=== PATIENT | female | born 1935 | race Caucasian/White ===

== ENCOUNTER → 2016-07-29 | Outpatient (CLI) | payer BC ==
[~2016-07-29] MED LIST: ALPR0.5T PO; ASPCH81 PO; CHOL100027 PO; CYCL10TA6 PO; FLVHFA110 INH; HYDC25 PO; KETO10TA PO; LEVAAER2 INH; MAGN400T6 PO; METO25TA3 PO; NF656 TD; PARO1TAB27 PO; PRLSR20 PO; SIMV20TA2 PO; SYN50 PO; VITAMIN B COMPLEX PO
--- NOTE | 2016-07-29 15:41 | MAMMOGRAPHY REPORT ---
BILATERAL DIGITAL SCREENING MAMMOGRAM WITH CAD: 07/29/2016 CLINICAL HISTORY: Routine screening. Patient has no complaints. TECHNIQUE: Current study was also evaluated with a Computer Aided Detection (CAD) system. Bilatera l CC and MLO views were obtained. COMPARISON: Comparison is made to exams dated: 07/02/2015 mammogram, 06/20/2014 mammogram, 08/21/2013 m ammogram, 08/16/2012 mammogram, 08/11/2011 mammogram, and 08/09/2010 mammogram - [facility]. BREAST COMPOSITION: The tissue of both breasts is heterogeneously dense, which may obscure small ma sses. FINDINGS: No suspicious masses, calcifications, or areas of architectural distortion are noted in e ither breast. There has been no significant interval change compared to prior exams. A linear scar marker denotes a scar in the right upper outer quadrant. Bilateral benign appearing calcifications are not significantly changed. IMPRESSION: ACR BI-RADS CATEGORY 2: BENIGN There is no mammographic evidence of malignancy. A 1 year screening mammogram is recommended. The p atient will receive written notification of the results. Approximately 10% of breast cancers are not detected with mammography. A negative mammographic repor t should not delay biopsy if a clinically suggestive mass is present. Radha Hancock M.D. ah/:07/29/2016 15:16:10 Plate Sensitizer: Asha APODACA(Gin)(M), [facility] letter sent: Normal 1/2 BI-RADS Code: ACR BI-RADS Category 2: Benign
== END | disposition home or self-care (01) ==
LOC: C.MAMM 14:46
PROVIDERS: ATTEND Internal Medicine
DX: Z12.31 Encounter for screening mammogram for malignant neoplasm of breast (principal)

== ENCOUNTER → 2016-08-01 | Outpatient (CLI) | payer BC ==
[2016-08-01 12:20] LABS: HEMATOCRIT 41.9 % (37-47); MEAN CELL VOLUME 91.9 fL (80-100); MEAN CORPUSCULAR HEMOGLOBIN 30.3 pg (25-34); MEAN CORPUSCULAR HGB CONC 32.9 g/dl (32-36); MEAN PLATELET VOLUME 11.5 fL (7.4-10.4); PLATELET COUNT 194 K/uL (130-400); RED BLOOD COUNT 4.56 M/uL (4.2-5.4); WHITE BLOOD COUNT 6.18 K/uL (4.8-10.8)
[2016-08-01 12:26] LABS: URINE APPEARANCE CLEAR (CLEAR); URINE BILIRUBIN NEG (NEG); URINE COLOR YELLOW; URINE EPITHELIAL CELL AUTO 0-5 /lpf (0-5); URINE NITRITE NEG (NEG); URINE PH 6.5 (4.5-7.5); URINE SPECIFIC GRAVITY 1.015 (1.000-1.030); UROBILINOGEN NEG (NEG)
[2016-08-01 12:29] LABS: MANUAL MICROSCOPIC REQUIRED? NO; REVIEW REQ? NO
[2016-08-01 13:26] LABS: URINE PROTIEN/CREAT RATIO 0.1 (0-0.2); URINE TOTAL PROTEIN 9.5 mg/dl (0-11.9)
[2016-08-01 14:01] LABS: BLOOD UREA NITROGEN 18 mg/dl (7-18); BUN/CREATININE RATIO 16.1 (10-20); CALCIUM 9.6 mg/dl (8.5-10.1); CARBON DIOXIDE 30 mmol/L (21-32); CHLORIDE 107 mmol/L (98-107); GLUCOSE 89 mg/dl (70-99); PHOSPHORUS 3.2 mg/dl (2.5-4.9); SODIUM 143 mmol/L (136-145)
== END | disposition home or self-care (01) ==
LOC: C.LAB1850 11:05
PROVIDERS: ATTEND Internal Medicine Nephrology
DX: I12.9 Hypertensive chronic kidney disease with stage 1 through stage 4 chronic kidney disease, or unspecified chronic kidney disease (principal); E55.9 Vitamin D deficiency, unspecified; R31.29 Other microscopic hematuria; N18.2 Chronic kidney disease, stage 2 (mild)

== ENCOUNTER → 2016-08-25 | Outpatient (CLI) | payer BC ==
--- NOTE | 2016-08-29 10:45 | CODING QUERY MEDICAL NECESSITY ---
SUPPORTING DIAGNOSIS NEEDED Dr. William, A supporting diagnosis is required for the test/procedure performed on this patient in order for us to be reimbursed by the patient's insurance. Please provide a supporting diagnosis for the following test/procedure listed below next to the test name along with your signature. *If there is no additional diagnosis for this patient that would support the following test/procedure please document that below next to the test/procedure. Test(s)/Procedure(s) that require a supporting diagnosis: * ([id number]) B12 VITAMIN LEVEL DIAGNOSIS: DATE OF SERVICE: 08/25/16 Provider Signature: Date: Thank you Tacho Bentley [facility] Information Management Once completed, please kindly fax back to [phone] For questions please call [phone]
== END | disposition home or self-care (01) ==
LOC: C.LAB1850 15:00
PROVIDERS: ATTEND Internal Medicine Nephrology
DX: N18.2 Chronic kidney disease, stage 2 (mild) (principal); D64.9 Anemia, unspecified

== ENCOUNTER → 2017-02-20 | Outpatient (CLI) | payer BC ==
[2017-02-20 12:58] LABS: HEMATOCRIT 42.4 % (37-47); MEAN CORPUSCULAR HEMOGLOBIN 30.6 pg (25-34); MEAN CORPUSCULAR HGB CONC 33.3 g/dl (32-36); MEAN PLATELET VOLUME 11.3 fL (7.4-10.4); PLATELET COUNT 200 K/uL (130-400); RED BLOOD COUNT 4.61 M/uL (4.2-5.4); WHITE BLOOD COUNT 5.49 K/uL (4.8-10.8)
[2017-02-20 13:28] LABS: BLOOD UREA NITROGEN 17 mg/dl (7-18); CALCIUM 9.3 mg/dl (8.5-10.1); CARBON DIOXIDE 29 mmol/L (21-32); CHLORIDE 104 mmol/L (98-107); CREATININE 1.13 mg/dl (0.60-1.20); GLUCOSE 92 mg/dl (70-99); PHOSPHORUS 2.9 mg/dl (2.5-4.9); POTASSIUM 3.9 mmol/L (3.5-5.1); SODIUM 139 mmol/L (136-145)
== END | disposition home or self-care (01) ==
LOC: C.LAB1850 11:28
PROVIDERS: ATTEND Internal Medicine Nephrology
DX: I12.9 Hypertensive chronic kidney disease with stage 1 through stage 4 chronic kidney disease, or unspecified chronic kidney disease (principal); N18.2 Chronic kidney disease, stage 2 (mild); E55.9 Vitamin D deficiency, unspecified; R25.1 Tremor, unspecified

== ENCOUNTER → 2017-05-19 | Outpatient (CLI) | payer BC ==
[2017-05-19 09:32] LABS: HEMATOCRIT 41.7 % (37-47); HEMOGLOBIN 13.9 g/dL (12.0-16.0); MEAN CELL VOLUME 90.7 fL (80-100); MEAN CORPUSCULAR HEMOGLOBIN 30.2 pg (25-34); MEAN CORPUSCULAR HGB CONC 33.3 g/dl (32-36); MEAN PLATELET VOLUME 10.4 fL (7.4-10.4); PLATELET COUNT 237 K/uL (130-400); RED CELL DISTRIBUTION WIDTH CV 14.6 % (11.5-14.5); RED CELL DISTRIBUTION WIDTH SD 48.4 fL (36.4-46.3); WHITE BLOOD COUNT 7.59 K/uL (4.8-10.8)
[2017-05-19 10:00] LABS: ALBUMIN 3.7 gm/dl (3.4-5.0); BLOOD UREA NITROGEN 16 mg/dl (7-18); CALCIUM 9.4 mg/dl (8.5-10.1); CARBON DIOXIDE 30 mmol/L (21-32); CREATININE 1.11 mg/dl (0.60-1.20); GLUCOSE 100 mg/dl (70-99); PHOSPHORUS 3.7 mg/dl (2.5-4.9); POTASSIUM 3.6 mmol/L (3.5-5.1); SODIUM 141 mmol/L (136-145)
== END | disposition home or self-care (01) ==
LOC: C.LAB1850 08:41
PROVIDERS: ATTEND Internal Medicine Nephrology
DX: I10 Essential (primary) hypertension (principal); E55.9 Vitamin D deficiency, unspecified; N18.2 Chronic kidney disease, stage 2 (mild)

== ENCOUNTER 2019-05-28 18:07 | Observation (INO) ==
[2019-05-28 20:47] LABS: Basophils # (auto) 0.01 K/uL (0-0.2); Basophils % (auto) 0.1 %; Eosinophils # (auto) 0.06 K/uL (0-0.5); Eosinophils % (auto) 0.4 %; Hemoglobin 13.7 g/dL (12.0-16.0); Immature Granulocytes # (auto) 0.02 K/uL (0.00-0.02); Immature Granulocytes % (auto) 0.1 %; Lymphocytes # (auto) 1.27 K/uL (1.2-3.4); Lymphocytes % (auto) 9.4 %; Mean Corpuscular Hemoglobin 30.7 pg (25-34); Mean Corpuscular Hgb Conc 33.4 g/dL (32-36); Mean Corpuscular Volume 91.9 fL (80-100); Mean Platelet Volume 10.9 fL (7.4-10.4); Monocytes # (auto) 0.38 K/uL (0.11-0.59); Monocytes % (auto) 2.8 %; Neutrophils # (auto) 11.74 K/uL (1.4-6.5); Neutrophils % (auto) 87.2 %; Platelet Count 218 K/uL (130-400); RDW Coefficient of Variation 13.5 % (11.5-14.5); RDW Standard Deviation 45.5 fL (36.4-46.3); Red Blood Count 4.46 M/uL (4.2-5.4); White Blood Count 13.48 K/uL (4.8-10.8)
[2019-05-28] MEDS ORDERED: SODIUM CHLORIDE 0.9% 500 ML IV SCH (21:00)
[2019-05-28 21:28] LABS: Albumin Level 3.8 gm/dl (3.4-5.0); Aspartate Aminotransferase 15 U/L (15-37); BUN Creatinine Ratio 17.1 (10-20); Blood Urea Nitrogen 21 mg/dl (7-18); Calcium 9.2 mg/dl (8.5-10.1); Carbon Dioxide 27 mmol/L (21-32); Chloride 106 mmol/L (98-107); Est GFR (African American) 47.8; Est GFR (Non-African American) 41.2; Glucose 122 mg/dl (70-99); Magnesium 2.2 mg/dl (1.8-2.4); Potassium 3.7 mmol/L (3.5-5.1); Sodium 139 mmol/L (136-145)
[2019-05-28 21:39] LABS: Alanine Aminotransferase 20 U/L (12-78); Alkaline Phosphatase 79 U/L (45-117); Bilirubin,Total 0.2 mg/dl (0.2-1); Globulin 3.9 gm/dl (2.5-4.0); Thyroid Stimulating Hormone 0.598 uIu/ml (0.300-4.500); Total Protein 7.7 gm/dl (6.4-8.2); Troponin I < 0.015 ng/ml (0-0.045)
[2019-05-28 22:05] LABS: Appearance Urine Clear (Clear); Bacteria Urine Automated Negative (Negative); Bilirubin Urine Negative (Negative); Blood Urine Trace (Negative); Color Urine Yellow; Glucose Urine UA Negative (Negative); Ketones Urine Negative (Negative); Leukocyte Esterase Urine 1+ (Negative); Nitrite Urine Negative (Negative); Protein Urine Negative (Negative); Specific Gravity Urine 1.013 (1.000-1.030); Urobilinogen Urine Negative (Negative)
[2019-05-28] MEDS ORDERED: AMLODIPINE BESYLATE 5 MG TAB PO STA (22:27)
--- NOTE | 2019-05-28 22:56 | CT Scan Report ---
CT head/brain wo con CT DOSE: HISTORY: Mental status change dizziness TECHNIQUE: Multiaxial CT images of the head were performed without the use of intravenous contrast. A dose lowering technique was utilized adhering to the principles of ALARA. Comparison: 10/22/2012 Findings: The paranasal sinuses and mastoid air cells are clear. The calvarium and skull base are int act. The ventricles and sulci are within normal limits. There is no mass, hematoma, midline shift, or acute infarct. Impression: No acute intracranial abnormality. ACT 112: Negative or not required by law. The above report was generated using voice recognition software. It may contain grammatical, syntax or spelling errors. Electronically signed by: Julio Baltazar M.D. 05/28/2019 10:55 PM
--- NOTE | 2019-05-28 22:58 | CT Scan Report ---
CT cervical spine wo con CT DOSE: 857.93 mGy.cm HISTORY: Pain neck pain TECHNIQUE: Multiaxial CT images of the cervical spine were performed and reformatted in the sagittal and coronal plane without the use of contrast. A dose lowering technique was utilized adhering to th e principles of ALARA. COMPARISON: None. FINDINGS: No fractures. No subluxation. Prevertebral soft tissues and the C1-C2 interval are intact. No pneumothorax. Significant degenerative disc changes throughout. Moderate degenerative change of the posterior elements throughout. No evidence for an acute compression deformity or acute bony abnormality. IMPRESSION: 1. Moderate to significant degenerative disc changes throughout the entire cervical region. 2. No evidence for significant bony compromise of the spinal canal or neural foramina. 3. Moderate degenerative changes posterior elements throughout the entire cervical region. 4. No acute bony abnormality. ACT 112: Negative or not required by law. The above report was generated using voice recognition software. It may contain grammatical, syntax or spelling errors. Electronically signed by: Julio Baltazar M.D. 05/28/2019 10:57 PM
--- NOTE | 2019-05-28 23:01 | History & Physical Report ---
Date of Service May 28, 2019 Assessment & Plan (1) Near syncope: Rule out orthostasis from diarrheal illness rule out C. difficile Dizziness secondary to illness Uncontrolled blood pressure possibly contributory Possible vertigo component given some worsening with head motion ? Functional disability, mild cognitive impairment as per records (Patient's family worried about intermittent confusion at home and ability to take meds as per records. Patient adamantly states that she knows her medications.) hx nonocclusive CAD as per records hyperlipidemia on statin Rx CRI (baseline creatinine 1.2), creatinine close to baseline hypothyroidism, euthyroid as of today's TSH history tremors on clonazepam Right-sided neck/right upper extremity pain from exertion with recent move to new residence Hyperglycemia rule out DM Medical telemetry Check orthostatic vitals IVF Stool C. difficile, Flagyl 1 dose for now given leukocytosis, oral vancomycin course if stool C. difficile positive Appropriate to hold home aspirin given rectal bleeding, she was H&H, transfuse PRBC if hemoglobin less than 8 and or for symptomatic anemia GI consult if with persistent L GIB if stool C. difficile negative Check UA Titrate home BP meds Symptomatic management for possible vertiginous component Check hemoglobin A1c PT OT eval DVT prophylaxis. SCDs re rectal bleed Full code Text document was generated using [employer] voice recognition software. It may contain grammatical or spelling errors. Kindly contact undersigned for clarification of any documentation item in question. History of Present Illness Primary Care Provider: Rashel Norris DO History obtained from patient and records. Medical history significant for nonocclusive CAD as per records, hypertension, hyperlipidemia, CRI (baseline creatinine 1.2), OA, asthma, GERD, hypothyroidism, skin cancer as per records, history tremors on clonazepam, mild cognitive impairment as per records. Recent confinement September 2012 for thoracic vertebral fracture secondary to mechanical fall. 1 week history of diarrhea, loose stools sometimes with rectal bleed, somewhat worse with eating. No chest pain, no S OB, no abdominal pain, no fever, no chills. No recent antibiotics or no known sick contacts or recent travel. Patient noted dizziness described as lightheadedness the last few days, feeling wobbly on her feet. No headache. Admits to right-sided neck pain going to the shoulder. Patient has been busy the last few days moving her belongings to a new apartment at the [facility]. Patient seen at PCP's office. Blood pressure noted to be 195/84. Patient does not check blood pressure at home. No NSAID intake. Denies dietary indiscretion. Patient directed to the ER for evaluation. MEDICAL HISTORY: As above. Normal colonoscopy 2007. SURGICAL HISTORY: Breast biopsy. Ptosis surgery, blepharoplasty FAMILY HISTORY: hypertension. Heart disease, skin cancer, diabetes, tremors PERSONAL SOCIAL HISTORY: Nonsmoker. 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 Allergies Allergy/AdvReac Type Severity Reaction Status Date / Time Iodinated Contrast Media Allergy Unknown IVP DYE Verified 05/28/19 23:18 ALLERGY NSAIDS (Non-Steroidal Allergy Unknown UNKNOWN Unverified 05/28/19 23:18 Anti-Inflamma primidone Allergy Unknown UNKNOWN Unverified 05/28/19 23:18 sertraline Allergy Unknown UNKNOWN Unverified 05/28/19 23:18 Sulfa (Sulfonamide Allergy Unknown "SULFA" Verified 05/28/19 23:18 Antibiotics) ALLERGY Home Medications Home Medications Medication Instructions Recorded Confirmed Type aspirin 81 mg tablet,delayed 81 mg PO DAILY tab 12/20/18 05/28/19 History release cholecalciferol (vitamin D3) 25 1,000 units PO DAILY 12/20/18 05/28/19 History mcg (1,000 unit) capsule clonazepam 0.5 mg tablet 0.5 mg PO TID PRN #270 tab 12/20/18 05/28/19 History fluticasone 100 mcg-salmeterol 50 1 puffs INHALATION BID #6 ea 12/20/18 05/28/19 History mcg/dose blistr powdr for inhalation levalbuterol tartrate 45 2 puffs INH Q4H PRN gm 12/20/18 05/28/19 History mcg/actuation aerosol inhaler levothyroxine 50 mcg tablet 50 mcg PO DAILY tab 12/20/18 05/28/19 History omeprazole 20 mg tablet,delayed 20 mg PO DAILY tab 12/20/18 05/28/19 History release simvastatin 20 mg tablet 10 mg PO DAILY tab 12/20/18 05/28/19 History amlodipine 2.5 mg tablet 2.5 mg PO DAILY #90 tab 02/11/19 05/28/19 Rx metoprolol succinate 100 mg 50 mg PO DAILY #50 tab 02/11/19 05/28/19 Rx tablet,extended release 24 hr isosorbide mononitrate 30 mg PO DAILY 05/28/19 05/28/19 History paroxetine HCl 30 mg PO DAILY 05/28/19 05/28/19 History Past Med/Surg History Medical History Chronic kidney disease, stage II (mild) GERD (gastroesophageal reflux disease) Heart block Hypertension Vitamin D deficiency Surgical History No pertinent past surgical history Family History Other Cancer Diabetes Heart disease Hypertension Kidney disease Lung disease Social History Feels Safe at Home: Yes Smoking Status: Never smoker Review of Systems Review of Systems: As per HPI, all 10 systems reviewed, all other ROS negative Physical Exam Physical Exam: GENERAL: Comfortable, obese, pleasant, looks younger for stated age, no respiratory distress SKIN: Normal color, warm HEENT: [place]di palpebral conjunctivae, no ptosis, dry buccal mucosa NECK : Supple, short neck, right cervical tenderness CHEST : CTA, no tenderness HEART : RRR, no obvious murmurs ABDOMEN: Some distention, nontender EXTREMITIES : No LE swelling/tenderness, minimal right shoulder tenderness, no other conspicuous deformities noted NEUROLOGIC : Coherent, no facial asymmetry, chronic rest tremors, no other gross focality Results & Data Vital Signs (Past 12 Hours) Vital Signs Temp Pulse Pulse Resp BP BP Pulse Ox 05/28/19 22:30 71 17 161/65 H 97 05/28/19 22:00 73 20 180/126 H 99 05/28/19 21:34 94 05/28/19 21:30 68 23 159/94 H 97 05/28/19 20:23 69 20 166/70 H 95 05/28/19 19:05 36.4 C L 60 22 175/90 H 96 Laboratory Results Laboratory Results WBC 13.48 K/uL (4.8-10.8) H 05/28/19 20:25 RBC 4.46 M/uL (4.2-5.4) 05/28/19 20:25 Hgb 13.7 g/dL (12.0-16.0) 05/28/19 20:25 Hct 41.0 % (37-47) 05/28/19 20:25 MCV 91.9 fL (80-100) 05/28/19 20:25 MCH 30.7 pg (25-34) 05/28/19 20: MCHC 33.4 g/dL (32-36) 05/28/19 20: RDW Std Deviation 45.5 fL (36.4-46.3) 05/28/19 RDW Coeff of Lakshmi 13.5 % (11.5-14.5) 05/28/19: Plt Count 218 K/uL (130-400) 05/28/19 20: MPV 10.9 fL (7.4-10.4) H 05/28/19 20: Immature Gran % (Auto) 0.1 % 05/28/19 20:25 Neut % (Auto) 87.2 % 05/28/19 20:25 Lymph % (Auto) 9.4 % 05/28/19 20:25 [place] % (Auto) 2.8 % 05/28/19 20:25 Eos % (Auto) 0.4 % 05/28/19 20:25 Baso % (Auto) 0.1 % 05/28/19 20:25 Immature Gran # (Auto) 0.02 K/uL (0.00-0.02) 05/28/19 20:25 Neut # (Auto) 11.74 K/uL (1.4-6.5) H 05/28/19 20:25 Lymph # (Auto) 1.27 K/uL (1.2-3.4) 05/28/19 20:25 [place] # (Auto) 0.38 K/uL (0.11-0.59) 05/28/19 20:25 Eos # (Auto) 0.06 K/uL (0-0.5) 05/28/19 20:25 Baso # (Auto) 0.01 K/uL (0-0.2) 05/28/19 20:25 Sodium 139 mmol/L (136-145) 05/28/19 20:25 Potassium 3.7 mmol/L (3.5-5.1) 05/28/19 20:25 Chloride 106 mmol/L (98-107) 05/28/19 20:25 Carbon Dioxide 27 mmol/L (21-32) 05/28/19 20:25 Anion Gap 6.0 (3-11) 05/28/19 20:25 BUN 21 mg/dl (7-18) H 05/28/19 20:25 Creatinine 1.22 mg/dl (0.6-1.2) H 05/28/19 20:25 Est Cr Clr Drug Dosing Not Reportable 05/28/19 20:25 Est GFR ( Amer) 47.8 05/28/19 20:25 Est GFR (Non-Af Amer) 41.2 05/28/19 20:25 BUN/Creatinine Ratio 17.1 (10-20) 05/28/19 20:25 Glucose 122 mg/dl (70-99) H 05/28/19 20:25 Calcium 9.2 mg/dl (8.5-10.1) 05/28/19 20:25 Magnesium 2.2 mg/dl (1.8-2.4) 05/28/19 20:25 Total Bilirubin 0.2 mg/dl (0.2-1) 05/28/19 20:25 AST 15 U/L (15-37) 05/28/19 20:25 ALT 20 U/L (12-78) 05/28/19 20:25 Alkaline Phosphatase 79 U/L (45-117) 05/28/19 20:25 Troponin I < 0.015 ng/ml (0-0.045) 05/28/19 20:25 Total Protein 7.7 gm/dl (6.4-8.2) 05/28/19 20:25 Albumin 3.8 gm/dl (3.4-5.0) 05/28/19 20:25 Globulin 3.9 gm/dl (2.5-4.0) 05/28/19 20:25 Albumin/Globulin Ratio 1.0 (0.9-2) 05/28/19 20:25 TSH 0.598 uIu/ml (0.300-4.500) 05/28/19 20:25 Urine Color Yellow 05/28/19 21:53 Urine Appearance Clear (Clear) 05/28/19 21:53 Urine pH 7.0 (4.5-7.5) 05/28/19 21:53 Ur Specific [place] 1.013 (1.000-1.030) 05/28/19 21:53 Urine Protein Negative (Negative) 05/28/19 21:53 Urine Glucose (UA) Negative (Negative) 05/28/19 21:53 Urine Ketones Negative (Negative) 05/28/19 21:53 Urine Blood Trace (Negative) H 05/28/19 21:53 Urine Nitrite Negative (Negative) 05/28/19 21:53 Urine Bilirubin Negative (Negative) 05/28/19 21:53 Urine Urobilinogen Negative (Negative) 05/28/19 21:53 Ur Leukocyte Esterase 1+ (Negative) H 05/28/19 21:53 Urine WBC (Auto) 5-10 /hpf (0-5) H 05/28/19 21:53 Urine RBC (Auto) 5-10 /hpf (0-4) H 05/28/19 21:53 U Hyaline Cast (Auto) 1-5 /lpf (0-5) 05/28/19 21:53 U Epithel Cells (Auto) 10-20 /lpf (0-5) H 05/28/19 21:53 Urine Bacteria (Auto) Negative (Negative) 05/28/19 21:[address] head: No acute intracranial abnormality. CT cervical spine: 1. Moderate to significant degenerative disc changes throughout the entire c ervical region. 2. No evidence for significant bony compromise of the spinal canal or neural foramina. 3. Moderate degenerative changes posterior elements throughout the entire cervical region. 4. No acute bony abnormality. Right shoulder x-ray read pending Chest x-ray as per my interpretation: Cardiomegaly EKG as per my interpretation : Rate 65, NSR, normal axis, incomplete right bundle drop right bundle branch block, ST depression inferior leads
--- NOTE | 2019-05-28 23:54 | Emergency Department Note ---
Entered by Hiram Delgado acting as a scribe for History of Present Illness General Chief complaint: Dizziness Stated complaint: DIZZY, NAUSEA Time Seen by Provider: 05/28/19 20:47 Source: patient History of Present Illness Onset (ago): hour(s) 4 Location: head Pain Consistency: + now resolved Quality: + other (dizziness) Associated symptoms: + denies other symptoms (fevers, black stool, abdominal pain), + nausea/vomiting and + other (diarrhea, blood in stool) The patient is an 84 y/o female who presents to the ED w/ CC of a resolved episode of dizziness that occurred about 4 hours ago. The patient states she was sent here by her PCP. She reports while she was leaving the office, there was no one around, and she became very dizzy. The patient notes she started to walk after putting her jacket and barely made it to the railing due to her dizziness. She describes her dizziness as a lightheadedness. She states she did not loss consciousness and was able to sit down in a chair. The patient reports she was driven here by her neighbor and was not sent by EMS. She denies palpitations, shortness of breath, and chest pain during her dizziness. The patient notes she was evaluated by her PCP for worsening diarrhea over the past few weeks. She states she developed bright red blood in her diarrhea starting today, and she noticed blood on the toilet paper as well. The patient reports she did not have abdominal pain or black stool. She notes she was not nauseous when the dizziness episode occurred, but she became nauseous afterwards and vomited. The patient states she did not have a fever. She reports in February they did not do anything for her after her stress test. The patient denies recent antibiotic use, traveling outside the country, and being around anyone sick. She notes she just moved into a new apartment in the [place], and she thinks she has been over working herself. The patient states she has also had mild stiffness in the right side of her neck. Home Medications Home Medications Medication Instructions Recorded Confirmed Type aspirin 81 mg tablet,delayed 81 mg PO DAILY tab 12/20/18 05/28/19 History release cholecalciferol (vitamin D3) 25 1,000 units PO DAILY 12/20/18 05/28/19 History mcg (1,000 unit) capsule clonazepam 0.5 mg tablet 0.5 mg PO TID PRN #270 tab 12/20/18 05/28/19 History fluticasone 100 mcg-salmeterol 50 1 puffs INHALATION BID #6 ea 12/20/18 05/28/19 History mcg/dose blistr powdr for inhalation levalbuterol tartrate 45 2 puffs INH Q4H PRN gm 12/20/18 05/28/19 History mcg/actuation aerosol inhaler levothyroxine 50 mcg tablet 50 mcg PO DAILY tab 12/20/18 05/28/19 History omeprazole 20 mg tablet,delayed 20 mg PO DAILY tab 12/20/18 05/28/19 History release simvastatin 20 mg tablet 10 mg PO DAILY tab 12/20/18 05/28/19 History amlodipine 2.5 mg tablet 2.5 mg PO DAILY #90 tab 02/11/19 05/28/19 Rx metoprolol succinate 100 mg 50 mg PO DAILY #50 tab 02/11/19 05/28/19 Rx tablet,extended release 24 hr isosorbide mononitrate 30 mg PO DAILY 05/28/19 05/28/19 History paroxetine HCl 30 mg PO DAILY 05/28/19 05/28/19 History Allergies Allergy/AdvReac Type Severity Reaction Status Date / Time Iodinated Contrast Media Allergy Unknown IVP DYE Verified 05/28/19 23:18 ALLERGY NSAIDS (Non-Steroidal Allergy Unknown UNKNOWN Unverified 05/28/19 23:18 Anti-Inflamma primidone Allergy Unknown UNKNOWN Unverified 05/28/19 23:18 sertraline Allergy Unknown UNKNOWN Unverified 05/28/19 23:18 Sulfa (Sulfonamide Allergy Unknown "SULFA" Verified 05/28/19 23:18 Antibiotics) ALLERGY Past Med/Surg History Medical History Chronic kidney disease, stage II (mild) GERD (gastroesophageal reflux disease) Heart block Hypertension Vitamin D deficiency Surgical History No pertinent past surgical history Family History Other Cancer Diabetes Heart disease Hypertension Kidney disease Lung disease Social History Feels Safe at Home: Yes Smoking Status: Never smoker Review of Systems See HPI for pertinent positives & negatives. and A total of 10 systems reviewed and were otherwise negative Physical Exam Vital Signs Vital Signs - 24 hr 05/28/19 19:05 05/28/19 20:23 05/28/19 20:58 Temperature 36.4 C L Temperature Source Oral Pulse Rate - Lying 71 Pulse Rate - Sitting 73 Pulse Rate - Standing 77 Pulse Rate 60 Pulse Rate [Right] 69 Pulse Rate from SpO2 Sensor Pulse Rhythm [Right] Regular Respiratory Rate 22 20 Respiratory Depth Normal Blood Pressure - Lying 165/78 H Blood Pressure - Sitting 164/83 H Blood Pressure- Standing 175/74 H Blood Pressure 175/90 H Blood Pressure [Right Arm] 166/70 H Blood Pressure Mean 118 Blood Pressure Mean [Right Arm] 102 Blood Pressure Position Sitting Blood Pressure Position [Right Arm] Sitting Pulse Oximetry 96 95 Oxygen Delivery Method Room Air Sepsis Recent Fever Within 48 Hours No Sepsis New/Unexplained Change in Mental Status No Sepsis Action Taken by Nursing No Action Required 05/28/19 21:30 05/28/19 21:34 05/28/19 22:00 Temperature Temperature Source Pulse Rate - Lying Pulse Rate - Sitting Pulse Rate - Standing Pulse Rate 68 73 Pulse Rate [Right] Pulse Rate from SpO2 Sensor 73 Pulse Rhythm [Right] Respiratory Rate 23 20 Respiratory Depth Blood Pressure - Lying Blood Pressure - Sitting Blood Pressure- Standing Blood Pressure 159/94 H 180/126 H Blood Pressure [Right Arm] Blood Pressure Mean 113 141 Blood Pressure Mean [Right Arm] Blood Pressure Position Blood Pressure Position [Right Arm] Pulse Oximetry 97 94 99 Oxygen Delivery Method Room Air Room Air Sepsis Recent Fever Within 48 Hours Sepsis New/Unexplained Change in Mental Status Sepsis Action Taken by Nursing 05/28/19 22:30 05/28/19 23:30 Temperature Temperature Source Pulse Rate - Lying Pulse Rate - Sitting Pulse Rate - Standing Pulse Rate 71 Pulse Rate [Right] Pulse Rate from SpO2 Sensor 70 67 Pulse Rhythm [Right] Respiratory Rate 17 Respiratory Depth Blood Pressure - Lying Blood Pressure - Sitting Blood Pressure- Standing Blood Pressure 161/65 H 167/105 H Blood Pressure [Right Arm] Blood Pressure Mean 101 131 Blood Pressure Mean [Right Arm] Blood Pressure Position Blood Pressure Position [Right Arm] Pulse Oximetry 97 97 Oxygen Delivery Method Room Air Sepsis Recent Fever Within 48 Hours Sepsis New/Unexplained Change in Mental Status Sepsis Action Taken by Nursing Constitutional: Vital signs reviewed. Eyes: Pupils are equal round reactive to light. Conjunctiva are noninjected. ENT: Pharynx is clear without erythema or exudate. Mucous membranes are moist. Neck supple without meningeal signs. Respiratory: Clear to auscultation bilaterally. Breath sounds are equal bilaterally. Cardiovascular: Regular rate and rhythm. No rubs or gallops. No carotid bruits. GI: Soft, nondistended and nontender. Bowel sounds are present. Musculoskeletal: No peripheral edema. No lower extremity tenderness. Integumentary: No cyanosis. Neurological: The patient is awake and alert. No focal deficits. Psychiatric: Normal affect. Course Course 2048: The patient was evaluated in room A09B. A complete history and physical exam was performed. 2144: Upon reevaluation, the patient is asymptomatic. I recommended a hospi talist evaluation. I discussed laboratory and radiographic results with her. She verbalized agreement of the treatment plan. The patient will be evaluated for further management and care. 2147: [facility] the [facility] the patient for further management. Administered Medications Discontinued Medications Amlodipine Besylate (Norvasc) 2.5 mg PO NOW STA Stop: 05/28/19 22:28 Last Admin: 05/28/19 22:38 Dose: 2.5 mg Documented by: [id number] Sodium Chloride (Nss) 500 mls @ 999 mls/hr IV .Q31M SMILEY Stop: 05/28/19 21:30 Last Infusion: 05/28/19 22:09 Dose: 0 mls/hr Documented by: [id number] Admin: 05/28/19 21:38 Dose: 999 mls/hr Documented by: [id number] Medical Decision Making Differential Diagnosis Differential diagnosis includes: dehydration, orthostatic hypotension, vasovagal, dysrhythmia, anemia, cardiovascular disease. Medical Records Attestation: I reviewed the patient's medical records. I did perform a limited focused review of portions of the patient's old chart on the electronic medical record. The patient had a nuclear stress test in February which showed a small area of reversible ischemia in the apical anterior wall. She also had a ZioPatch in February for dizziness and Mobitz I 2nd degree AV block. Home Medications Current Medication List: was personally reviewed by me Laboratory Data Attestation: I reviewed the patient's lab results. Result diagrams: 05/28/19 20:25 05/28/19 20:25 Lab Results 05/28/19 05/28/19 05/28/19 Range/Units 20:25 20:25 21:53 WBC 13.48 H (4.8-10.8) K/uL RBC 4.46 (4.2-5.4) M/uL Hgb 13.7 (12.0-16.0) g/dL Hct 41.0 (37-47) % MCV 91.9 (80-100) fL MCH 30.7 (25-34) pg MCHC 33.4 (32-36) g/dL RDW Std Deviation 45.5 (36.4-46.3) fL RDW Coeff of Lakshmi 13.5 (11.5-14.5) % Plt Count 218 (130-400) K/uL MPV 10.9 H (7.4-10.4) fL Immature Gran % (Auto) 0.1 % Neut % (Auto) 87.2 % Lymph % (Auto) 9.4 % [place] % (Auto) 2.8 % Eos % (Auto) 0.4 % Baso % (Auto) 0.1 % Immature Gran # (Auto) 0.02 (0.00-0.02) K/uL Neut # (Auto) 11.74 H (1.4-6.5) K/uL Lymph # (Auto) 1.27 (1.2-3.4) K/uL [place] # (Auto) 0.38 (0.11-0.59) K/uL Eos # (Auto) 0.06 (0-0.5) K/uL Baso # (Auto) 0.01 (0-0.2) K/uL Sodium 139 (136-145) mmol/L Potassium 3.7 (3.5-5.1) mmol/L Chloride 106 (98-107) mmol/L Carbon Dioxide 27 (21-32) mmol/L Anion Gap 6.0 (3-11) BUN 21 H (7-18) mg/dl Creatinine 1.22 H (0.6-1.2) mg/dl Est Cr Clr Drug Dosing Not Reportable Est GFR ( Amer) 47.8 Est GFR (Non-Af Amer) 41.2 BUN/Creatinine Ratio 17.1 (10-20) Glucose 122 H (70-99) mg/dl Calcium 9.2 (8.5-10.1) mg/dl Magnesium 2.2 (1.8-2.4) mg/dl Total Bilirubin 0.2 (0.2-1) mg/dl AST 15 (15-37) U/L ALT 20 (12-78) U/L Alkaline Phosphatase 79 (45-117) U/L Troponin I < 0.015 (0-0.045) ng/ml Total Protein 7.7 (6.4-8.2) gm/dl Albumin 3.8 (3.4-5.0) gm/dl Globulin 3.9 (2.5-4.0) gm/dl Albumin/Globulin Ratio 1.0 (0.9-2) TSH 0.598 (0.300-4.500) uIu/ml Urine Color Yellow Urine Appearance Clear (Clear) Urine pH 7.0 (4.5-7.5) Ur Specific [place] 1.013 (1.000-1.030) Urine Protein Negative (Negative) Urine Glucose (UA) Negative (Negative) Urine Ketones Negative (Negative) Urine Blood Trace H (Negative) Urine Nitrite Negative (Negative) Urine Bilirubin Negative (Negative) Urine Urobilinogen Negative (Negative) Ur Leukocyte Esterase 1+ H (Negative) Urine WBC (Auto) 5-10 H (0-5) /hpf Urine RBC (Auto) 5-10 H (0-4) /hpf U Hyaline Cast (Auto) 1-5 (0-5) /lpf U Epithel Cells (Auto) 10-20 H (0-5) /lpf Urine Bacteria (Auto) Negative (Negative) ECG Data Attestation: I personally reviewed and interpreted this ECG as follows: Indication: + other (dizziness) Rate (beats per minute): 64 Rhythm: + normal sinus ECG Intervals/blocks: + Right Bundle branch block ECG ST segments: + ST depression (slightly in the inferior leads) and + T-wave inversions (slightly in the inferior leads); no ST elevation ECG Findings: no PVCs Comparison ECG Date: from (11/20/11) Change: no significant change Blood Pressure Blood Pressure Findings: Elevated blood pressure Blood Pressure Disposition: further management by hospitalist MDM Narrative I did evaluate the patient as noted above. The patient is presenting with a near syncopal episode. According to the records from [facility] the patient had a abnormal cardiac stress test in February. She also was noted to have episodes of Mobitz type I second-degree block. IV access was established. I did treat her with normal saline IV. The patient was placed on a continuous liquor gallery operator. I did order and personally review the patient's 12-lead EKG as descr ibed above. She has no acute ischemia on her twelve-lead EKG. She has an old right bundle branch block. Orthostatic vital signs were obtained and she did not display any signs of orthostatic hypotension. I did order and personally reviewed the images of the patient's chest x-ray as described above. I did order a urine analysis. She does not have an infection. I did order and review the patient's blood work as noted in the electronic medical record. Her white count is slightly elevated. She is not anemic. Electrolytes are unremarkable. Her creatinine is 1.2. I did discuss the test results with the patient. I did recommend hospitalization for further evaluation and cardiac monitoring. She was in agreement. I did discuss case with hospitalist and case therapist. Continuous Cardiac Monitoring: An order was placed for continuous cardiac monitoring for near syncope and looking for dysrhythmia. The monitor shows a rate of 68 with a normal sinus rhythm. Impression & Plan Near syncope, Diarrhea, Hematochezia Discharge Plan Visit Data Chief Complaint: Dizziness Stated Complaint: DIZZY, NAUSEA ED Provider: Ochoa Butler Discharge Problem: Near syncope, Diarrhea, Hematochezia Patient Disposition: Being Evaluated by Hospitalist Forms Stand Alone Forms: My [facility] Prescriptions Prescriptions: No Action levothyroxine 50 mcg tablet 50 mcg PO DAILY RF: 0 fluticasone propion-salmeterol 100-50 mcg/dose blister with device 1 puffs inhalation BID Qty: 6 RF: 0 levalbuterol tartrate [Xopenex HFA] 45 mcg/actuation HFA aerosol inhaler 2 puffs INH Q4H PRN (Reason: shortness of breath or wheezing) RF: 0 clonazepam 0.5 mg tablet 0.5 mg PO TID PRN (Reason: Anxiety) Qty: 270 RF: 0 aspirin 81 mg tablet,delayed release (DR/EC) 81 mg PO DAILY RF: 0 omeprazole 20 mg tablet,delayed release (DR/EC) 20 mg PO DAILY RF: 0 simvastatin 20 mg tablet 10 mg PO DAILY RF: 0 cholecalciferol (vitamin D3) 1,000 unit capsule 1,000 units PO DAILY RF: 0 amlodipine 2.5 mg tablet 2.5 mg PO DAILY Qty: 90 RF: 3 metoprolol succinate 100 mg tablet extended release 24 hr 50 mg PO DAILY Qty: 50 RF: 3 paroxetine HCl 30 mg tablet 30 mg PO DAILY RF: 0 isosorbide mononitrate 30 mg tablet extended release 24 hr 30 mg PO DAILY RF: 0 Referrals Referrals: Rashel Norris DO [Primary Care Provider] - Discharge Problem: Diarrhea Qualifiers: Diarrhea type: unspecified type Qualified Code(s): R19.7 - Diarrhea, unspecified The scribe's documentation has been prepared under my direction and personally reviewed by me in its entirety. I confirm that the note above accurately reflects all work, treatment, procedures, and medical decision making performed by me.
[2019-05-29] MEDS ORDERED: MECLIZINE 12.5 MG TAB PO STA (00:53)
[2019-05-29] MEDS ORDERED: metroNIDAZOLE 500 MG/100 ML BAG IV STA ×2 (01:28→02:34)
[2019-05-29] MEDS ORDERED: LACTATED RINGER'S 1,000 ML IV ONE (01:44)
[2019-05-29] MEDS ORDERED: METOPROLOL SUCC 25MG EXT REL TAB PO SCH (01:49)
[2019-05-29] MEDS ORDERED: ACETAMINOPHEN 325 MG TAB PO PRN (01:49)
[2019-05-29] MEDS ORDERED: TRAMADOL HCL 50 MG TABLET PO PRN (01:49)
[2019-05-29] MEDS ORDERED: PROMETHAZINE HCL 12.5 MG in SODIUM CHLORIDE 0.9% 50 ML IV PRN (01:49)
[2019-05-29] MEDS ORDERED: NITROGLYCERIN SL 0.4 MG/TAB TAB SL PRN (01:49)
[2019-05-29] MEDS ORDERED: INFLUENZA ADMINISTRATION CHARGE ONE (02:23)
[2019-05-29] MEDS ORDERED: PNEUMOCOCCAL ADMINISTRATION CHARGE ONE (02:23)
[2019-05-29] MEDS ORDERED: PNEUMOCOCCAL POLYSACCHARIDES 25 MCG/0.5 ML VIAL/SYR IM ONE (02:23)
[2019-05-29] MEDS ORDERED: INFLUENZA VACCINE HIGH DOSE 65+ 0.5 ML SYR IM ONE (02:23)
[2019-05-29 02:28] LABS: Basophils # (auto) 0.01 K/uL (0-0.2); Basophils % (auto) 0.1 %; Eosinophils # (auto) 0.06 K/uL (0-0.5); Eosinophils % (auto) 0.6 %; Hematocrit (blood only) 42.3 % (37-47); Hemoglobin 14.1 g/dL (12.0-16.0); Immature Granulocytes # (auto) 0.02 K/uL (0.00-0.02); Immature Granulocytes % (auto) 0.2 %; Lymphocytes # (auto) 2.04 K/uL (1.2-3.4); Lymphocytes % (auto) 22.1 %; Mean Corpuscular Hemoglobin 30.6 pg (25-34); Mean Corpuscular Hgb Conc 33.3 g/dL (32-36); Mean Corpuscular Volume 91.8 fL (80-100); Mean Platelet Volume 11.2 fL (7.4-10.4); Monocytes % (auto) 5.4 %; Neutrophils # (auto) 6.61 K/uL (1.4-6.5); Neutrophils % (auto) 71.6 %; Platelet Count 224 K/uL (130-400); RDW Coefficient of Variation 13.4 % (11.5-14.5); RDW Standard Deviation 44.9 fL (36.4-46.3); Red Blood Count 4.61 M/uL (4.2-5.4); White Blood Count 9.24 K/uL (4.8-10.8)
[2019-05-29 03:08] LABS: Appearance Urine Slightly Cloudy (Clear); Bilirubin Urine Negative (Negative); Blood Urine Trace (Negative); Color Urine Yellow; Glucose Urine UA Negative (Negative); Ketones Urine Negative (Negative); Leukocyte Esterase Urine 1+ (Negative); Nitrite Urine Negative (Negative); Protein Urine Negative (Negative); Urobilinogen Urine Negative (Negative)
[2019-05-29 03:27] LABS: Epithelial Cell Urine >30 /lpf (0-5)
[2019-05-29 03:28] LABS: RBC Urine 0-4 /hpf (0-4); WBC Urine >30 /hpf (0-5)
[2019-05-29 03:29] LABS: Bacteria Urine 1+ (Negative)
[2019-05-29 03:35] LABS: Calcium 9.2 mg/dl (8.5-10.1); Creatinine Clr Calc Pharmacy 35.7 ml/min; Est GFR (African American) 57.9; Potassium 3.5 mmol/L (3.5-5.1)
[2019-05-29] MEDS: HEPARIN SOD 5,000 UNIT/0.5 ML VIAL SQ SCH ×3 (06:21→21:01)
[2019-05-29] MEDS: LEVOTHYROXINE SODIUM 50 MCG TABLET PO SCH (06:21)
[2019-05-29 06:32] LABS: Estimated Average Glucose 128 mg/dl; Hemoglobin A1C 6.1 % (4.5-5.6)
--- NOTE | 2019-05-29 07:41 | XRay Report ---
XR shoulder RT min 2V routine CLINICAL HISTORY: Right shoulder pain. COMPARISON: None FINDINGS: Alignment of the right shoulder is anatomic. There is no fracture or suspicious lesion. Th ere is moderate osteoarthritis of the right acromioclavicular joint. IMPRESSION: 1. No fracture or dislocation within the right shoulder. 2. Moderate osteoarthritis of the right acromioclavicular joint. ACT 112: Negative or not required by law. Electronically signed by: Adrian Hernandez M.D. 05/29/2019 7:40 AM
--- NOTE | 2019-05-29 08:02 | XRay Report ---
XR chest 1V portable CLINICAL HISTORY: Renal failure. COMPARISON STUDY: Chest CT October 22, 2012. FINDINGS: Lung volumes are normal. Mild right basilar opacity favors atelectasis. There is no pneumot horax or pleural effusion. There is mild cardiomegaly without evidence for pulmonary edema. There is no consolidation to suggest pneumonia. IMPRESSION: No acute cardiopulmonary findings. No evidence for pulmonary edema. ACT 112: Negative or not required by law. Electronically signed by: Adrian Hernandez M.D. 05/29/2019 8:00 AM
[2019-05-29] MEDS: FLUTICASONE/VILANTEROL 100/25MCG 14 PUFFS/INHALER INH SCH (08:22)
[2019-05-29] MEDS: AMLODIPINE BESYLATE 5 MG TAB PO SCH (08:23)
[2019-05-29] MEDS: PANTOprazole 40 MG TAB PO SCH (08:23)
[2019-05-29] MEDS: SIMVASTATIN 10 MG TAB PO SCH (08:24)
[2019-05-29] MEDS: clonazePAM 0.5 MG TAB PO SCH ×3 (08:24→21:02)
[2019-05-29] MEDS ORDERED: PARoxetine HCL 20 MG TAB PO SCH (09:00)
--- NOTE | 2019-05-29 10:57 | Gastrointestinal Consultation ---
Date of Consultation May 29, 2019 Assessment & Plan (1) Diarrhea: Differentials considered include C-diff, other bacterial diarrheal illness, viral enteritis. Though an acute diarrheal illness is not a typical presenting sign for colon cancer, because she in relatively healthy and has not undergone colonoscopy for 12 yrs, we do recommend an eventual colonoscopy which can be completed as an OP. Also, if diarrhea persists, colonoscopy would be helpful for obtaining bx to r/o microscopic colitis. 1. Stools for C-diff, culture, ova/parasites. 2. Eventual colonoscopy, can be completed as an OP. Present on Admission?: Yes Supervising Physician Co-Signing Physician Notes Late entry: Loly was seen and examined on 05/28 with SUDHA Hill whose note reflects our findings and plan. Admitted with diarrhea. Stool studies pending. Abd exam is benign. Lasb reviewed. Supportive care with IVF hydration. History of Present Illness Reason for Consultation: Diarrheal illness Requesting Physician: Dr. Pa Attending Physician: Mahogany Pa, DO History of Present Illness Ms. Luh Ro is an 84 yr old female pt of Dr. Norris who was seen at her PCP yesterday for diarrhea and experienced extreme dizziness there. She was transferred to [facility] and admitted. GI is consulted for diarrhea. The pt tells me that diarrhea began 10 days ago and consists of 4-5 loose brown BMs/day. Typically, she is awakened in the morning with need to defecate, passes a BM, another in another hour or so then one more after lunch and one after supper. She had a small amt of bright red blood on the toilet paper yesterday but no blood mixed in the stools. She has generalized, diffuse abdominal discomfort but no severe abdominal pain. No fevers/chills/sweats. On arrival, WBC 13->9 today, Cr was 1.2 ->1.0 today. There was no significant electrolyte abnormalities and no anemia. She has not passed a BM since arrival. Her most recent colonoscopy was in [address] Lomas for diarrhea with normal findings. The pt tells me that she does not want a colonoscopy. She and her relatives that are in the room also say that she is under a great deal of stress, having recently moved into the [place] and is trying to get her home ready to sell. Allergies Allergy/AdvReac Type Severity Reaction Status Date / Time Iodinated Contrast Media Allergy Unknown IVP DYE Verified 05/28/19 23:18 ALLERGY NSAIDS (Non-Steroidal Allergy Unknown UNKNOWN Unverified 05/28/19 23:18 Anti-Inflamma primidone Allergy Unknown UNKNOWN Unverified 05/28/19 23:18 sertraline Allergy Unknown UNKNOWN Unverified 05/28/19 23:18 Sulfa (Sulfonamide Allergy Unknown "SULFA" Verified 05/28/19 23:18 Antibiotics) ALLERGY Home Medications Home Medications Medication Instructions Recorded Confirmed Type aspirin 81 mg tablet,delayed 81 mg PO DAILY tab 12/20/18 05/28/19 History release cholecalciferol (vitamin D3) 25 1,000 units PO DAILY 12/20/18 05/28/19 History mcg (1,000 unit) capsule clonazepam 0.5 mg tablet 0.5 mg PO TID PRN #270 tab 12/20/18 05/28/19 History fluticasone 100 mcg-salmeterol 50 1 puffs INHALATION BID #6 ea 12/20/18 05/28/19 History mcg/dose blistr powdr for inhalation levalbuterol tartrate 45 2 puffs INH Q4H PRN gm 12/20/18 05/28/19 History mcg/actuation aerosol inhaler levothyroxine 50 mcg tablet 50 mcg PO DAILY tab 12/20/18 05/28/19 History omeprazole 20 mg tablet,delayed 20 mg PO DAILY tab 12/20/18 05/28/19 History release simvastatin 20 mg tablet 10 mg PO DAILY tab 12/20/18 05/28/19 History amlodipine 2.5 mg tablet 2.5 mg PO DAILY #90 tab 02/11/19 05/28/19 Rx metoprolol succinate 100 mg 50 mg PO DAILY #50 tab 02/11/19 05/28/19 Rx tablet,extended release 24 hr isosorbide mononitrate 30 mg PO DAILY 05/28/19 05/28/19 History paroxetine HCl 30 mg PO DAILY 05/28/19 05/28/19 History Patient History Medical History Chronic kidney disease, stage II (mild) GERD (gastroesophageal reflux disease) Heart block Hypertension Vitamin D deficiency Surgical History No pertinent past surgical history Family History Other Cancer Diabetes Heart disease Hypertension Kidney disease Lung disease Social History Preferred Language: Senegalese Communication Ability: Effective Home Builder Required: No Beliefs That Will Affect Care: None Current Living Situation: Alone Other Information That Helps Us Care for You: No Feels Safe at Home: Yes Safety Concerns: Feels Safe At This Time Smoking Status: Never smoker Second Hand Exposure: No ; Hx Alcohol Use: No Hx Substance Use: No Review of Systems Review of Systems: ROS: Gen: Denies weakness, fevers, weight loss Eyes: No eye redness, or pain, no recent vision changes Resp: No SOB, no cough Cardio: No palpitations/irregular beats, no chest pain GI: No abdominal pain, no nausea/vomiting : Denies pain on urination Skin: No jaundice, itching or new rashes Ext: chronic lower extremity lymphedema Physical Exam Constitutional: WD/WN, vitals as above Eyes: PERRL, conjunctivae normal, anicteric sclerae ENMT: external ear and nose normal, oropharynx normal Neck: trachea midline, no thyromegaly Respiratory: normal respiratory effort, lungs clear to auscultation Cardiovascular: Rate/Rhythm: regular rate and regular rhythm 1-2 plus, non pitting lower leg edema present equally bilaterally Gastrointestinal (Abdomen): normal bowel sounds, soft, nontender, no hepatosplenomegaly Skin: no rashes, warm and dry normal turgor Neurologic: PERRL, EOMI, accommodation nl, no face palsy, no dysarthria Psychiatric: A+Ox3, euthymic affect Lymphatic: no cervical or axillary lymphadenopathy Results & Data ([facility]) Vital Signs (Past 12 Hours) Vital Signs Temp Pulse Pulse Resp BP BP BP 05/29/19 07:39 36.5 C 68 20 135/68 05/29/19 07:06 71 05/29/19 04:00 36.9 C 65 20 139/65 05/29/19 02:13 36.8 C 71 16 196/63 H 05/29/19 02:09 66 05/29/19 01:00 177/66 H 03/04/20 00:30 159/65 H 05/29/19 00:00 153/68 H 05/28/19 23:30 167/105 H Pulse Ox 05/29/19 07:39 93 05/29/19 07:06 05/29/19 04:00 92 05/29/19 02:13 97 05/29/19 02:09 05/29/19 01:00 93 05/29/19 00:30 94 05/29/19 00:00 93 05/28/19 23:30 97 Laboratory Results WBC 9, Hb 14, Hct 42, platelets 224, Na 143, K 3.5, BUN 17, Cr 1. (1) Diarrhea Diarrhea type: unspecified type Qualified Code(s): R19.7 - Diarrhea, unspecified
[2019-05-29 12:16] LABS: Hematocrit (blood only) 39.6 % (37-47); Hemoglobin 13.1 g/dL (12.0-16.0)
--- NOTE | 2019-05-29 12:38 | Hospitalist Progress Note ---
Date of Service May 29, 2019 Assessment & Plan (1) Near syncope: Negative orthostatic vital signs overnight, and she reports an overall improvement in what she calls vertigo. She denies vertigo right now, but feels unsteady and lightheaded, especially with changing position from sitting to standing. Normal neuro exam grossly and gait was not assessed 2/2 fall risk. Will await PT/OT evaluation on her and will monitor for any further bleeding. At this point, it will probably be more beneficial for her to eat something as there is no imminent bleed or endoscopic procedure that is planned. Received IVF overnight, will stop now. Telemetry review revealed sinus rhythm without evidence of arrhythmias and heart rate in the 60-70s overnight. Cont to monitor for improvement. (2) Hematochezia: one time and not persistent. Per GI no imminent inpatient procedure planned. H/H and vitals are stable. Dessitin PRN rectal discomfort. Advance diet. (3) Diarrhea: Stool studies pending (4) Hypertension: Initially elevated but now within normal range. Cont home medications including Toprol XL, Imdur, and amlodipine which was increased to 5mg daily. L ikely situational. (5) Pain of right upper extremity: No report of this. Imaging was negative. Cont supportive care efforts as needed. Heating pad given. (6) CKD (chronic kidney disease), stage III: chronic, diet (7) Asthma: chronic, stable (8) Depression: chronic, stable, cont home medication with Paxil (9) Hypothyroidism: cont home Synthroid (10) DVT prophylaxis: SCDs in setting of hematochezia Full Dispo-pending PT/OT recs and ?persistent bleeding. DO [facility] Hospitalist Admission and Anticipated Discharge Date Admission Date: May 28, 2019 Subjective 84 yo F with presyncope after 1 week of increased BMs to three times daily. She reports rectal discomfort as a result of going to the bathroom frequently, and after a week of this noted some bright red blood on the toilet tissue with wiping. Denies any further blood in stool overnight. Last BM was yesterday afternoon. Hungry and asking to eat. Denies other issues including no SOB, CP, abdominal pain, fevers or chills. Review of Systems Review of Systems: All systems reviewed & are unremarkable except as noted in Subjective Physical Exam Physical Exam: CONSTITUTIONAL: WNWD, vitals as above, generally well- appearing EYES: normal conjunctivae, no scleral icterus ENT: MMM RESPIRATORY: clear to auscultation bilaterally, no crackles, rales or wheezes, normal respiratory effort CARDIOVASCULAR: regular rate and rhythm, S1 and 2 heard without murmurs, gall ops or rubs, no JVD, no peripheral edema GASTROINTESTINAL: normal bowel sounds, soft, nontender, nondistended, no guarding. MUSCULOSKELETAL: strength 5/5 throughout, head is normocephalic and atraumatic SKIN: warm and dry NEUROLOGIC: CN 2-12 grossly intact, no sensory deficit, normal cognition, normal speech, no tremor, no gross focal deficits. PSYCHIATRIC: alert cooperative and oriented to person, place and time. Results & Data ([facility]) Vital Signs (Past 12 Hours) Vital Signs Temp Pulse Pulse Resp BP BP BP 05/29/19 11:33 36.7 C 61 18 137/67 05/29/19 07:39 36.5 C 68 20 135/68 05/29/19 07:06 71 05/29/19 04:00 36.9 C 65 20 139/65 05/29/19 02:13 36.8 C 71 16 196/63 H 05/29/19 02:09 66 05/29/19 01:00 177/66 H Pulse Ox 05/29/19 11:33 91 05/29/19 07:39 93 05/29/19 07:06 05/29/19 04:00 92 05/29/19 02:13 97 05/29/19 02:09 05/29/19 01:00 93 Laboratory Results Short CBC 05/28/19 05/29/19 05/29/19 Range/Units 20:25 02:18 11:54 WBC 13.48 H 9.24 (4.8-10.8) K/uL Hgb 13.7 14.1 13.1 (12.0-16.0) g/dL Hct 41.0 42.3 39.6 (37-47) % Plt Count 218 224 (130-400) K/uL BMP 05/28/19 05/29/19 20:25 02:18 Sodium 139 143 Potassium 3.7 3.5 Chloride 106 112 H Carbon Dioxide 27 25 BUN 21 H 17 Creatinine 1.22 H 1.04 Glucose 122 H 110 H Calcium 9.2 9.2 Cardiac Enzymes 05/28/19 Range/Units 20:25 Troponin I < 0.015 (0-0.045) ng/ml Liver Function 05/28/19 Range/Units 20:25 Total Bilirubin 0.2 (0.2-1) mg/dl AST 15 (15-37) U/L ALT 20 (12-78) U/L Alkaline Phosphatase 79 (45-117) U/L Albumin 3.8 (3.4-5.0) gm/dl Urine 05/28/19 05/29/19 Range/Units 21:53 02:53 Urine Color Yellow Yellow Urine Appearance Clear Slightly Cloudy (Clear) Urine pH 7.0 7.0 (4.5-7.5) Ur Specific Newcomb 1.013 1.010 (1.000-1.030) Urine Protein Negative Negative (Negative) Urine Glucose (UA) Negative Negative (Negative) Diagnostic Findings CT head/brain wo con Findings: The paranasal sinuses and mastoid air cells are clear. The calvarium and skull base are intact. The ventricles and sulci are within normal limits. There is no mass, hematoma, midline shift, or acute infarct. Impression: No acute intracranial abnormality. CT cervical spine wo con FINDINGS: No fractures. No subluxation. Prevertebral soft tissues and the C1-C2 interval are intact. No pneumothorax. Significant degenerative disc changes throughout. Moderate degenerative change of the posterior elements throughout. No evidence for an acute compression deformity or acute bony abnormality. IMPRESSION: 1. Moderate to significant degenerative disc changes throughout the entire cervical region. 2. No evidence for significant bony compromise of the spinal canal or neural foramina. 3. Moderate degenerative changes posterior elements throughout the entire cervical region. 4. No acute bony abnormality. XR shoulder RT min 2V routine FINDINGS: Alignment of the right shoulder is anatomic. There is no fracture or suspicious lesion. There is moderate osteoarthritis of the right acromioclavicular joint. IMPRESSION: 1. No fracture or dislocation within the right shoulder. 2. Moderate osteoarthritis of the right acromioclavicular joint. XR chest 1V portable FINDINGS: Lung volumes are normal. Mild right basilar opacity favors atelect asis. There is no pneumothorax or pleural effusion. There is mild cardiomegaly without evidence for pulmonary edema. There is no consolidation to suggest pneumonia. IMPRESSION: No acute cardiopulmonary findings. No evidence for pulmonary edema. Medications Administered Current Inpatient Medications Acetaminophen (Tylenol) 650 mg PO Q4H PRN PRN Reason: Pain or Fever Stop: 06/28/19 01:48 Amlodipine Besylate (Norvasc) 5 mg PO DAILY [facility] Stop: 06/28/19 08:59 Last Admin: 05/29/19 08:23 Dose: 5 mg Documented by: Clonazepam (Klonopin) 0.5 mg PO TID [facility]MI[facility] Stop: 06/28/19 08:59 Last Admin: 05/29/19 08:24 Dose: 0.5 mg Documented by: Fluticasone/Vilanterol (Breo Ellipta 100/25 Mcg Inh) 1 puffs INH DAILY [facility] Stop: 06/28/19 08:59 Last Admin: 05/29/19 08:22 Dose: 1 puffs Documented by: Heparin Sodium (Porcine) (Heparin Sodium (Porcine)) 5,000 units SQ Q8 [facility] Stop: 06/28/19 05:59 Last Admin: 05/29/19 06:21 Dose: 5,000 units Documented by: Lactated Ringer's (Lr) 1,000 mls @ 40 mls/hr IV .Q24H ONE Stop: 05/30/19 01:43 Last Admin: 05/29/19 04:15 Dose: 40 mls/hr Documented by: Promethazine HCl 12.5 mg/ (Sodium Chloride) 50.5 mls @ 202 mls/hr IV Q6H PRN PRN Reason: Nausea And Vomiting Stop: 06/28/19 01:48 Levothyroxine Sodium (Synthroid) 50 mcg PO DAILYBB [facility] Stop: 06/28/19 06:29 Last Admin: 05/29/19 06:21 Dose: 50 mcg Documented by: Metoprolol Succinate (Toprol Xl) 25 mg PO QAM [facility] Stop: 06/28/19 01:48 Last Admin: 05/29/19 03:00 Dose: 25 mg Documented by: Nitroglycerin (Nitrostat) 0.4 mg SL UD PRN PRN Reason: Chest Pain Stop: 06/28/19 01:48 Pantoprazole Sodium (Protonix) 40 mg PO DAILY [facility] Stop: 06/28/19 08:59 Last Admin: 05/29/19 08:23 Dose: 40 mg Documented by: Paroxetine HCl (Paxil) 20 mg PO DAILY [facility] Stop: 06/28/19 08:59 Last Admin: 05/29/19 08:23 Dose: 20 mg Documented by: Simvastatin (Zocor) 10 mg PO DAILY [facility] Stop: 06/28/19 08:59 Last Admin: 05/29/19 08:24 Dose: 10 mg Documented by: Tramadol HCl (Ultram) 25 mg PO Q4H PRN PRN Reason: Pain Stop: 06/28/19 01:48 (1) Diarrhea Diarrhea type: unspecified type Qualified Code(s): R19.7 - Diarrhea, unspecified
[2019-05-29] MEDS ORDERED: ZINC OXIDE 16% 45 APPLN, HYDROCORTISONE 1% 45 APPLN, ALUMINUM/MAGNESIUM SUSP 15 ML, BAR... TOP PRN (12:59)
[2019-05-29] MEDS ORDERED: LEVALBUTEROL TARTRATE 15 GM HFA.AER.AD INH PRN (12:59)
--- NOTE | 2019-05-29 15:53 | Electrocardiogram Report ---
Test Reason : Blood Pressure : / mmHG Vent. Rate : 064 BPM Atrial Rate : 064 BPM P-R Int : 200 ms QRS Dur : 136 ms QT Int : 466 ms P-R-T Axes : 045 067 011 degrees QTc Int : 480 ms Normal sinus rhythm Right bundle branch block Abnormal ECG When compared with ECG of 20-NOV-2011 06:20, T wave inversion now evident in Anterior leads Confirmed by Brandon Sena ([id number]) on 05/29/2019 3:52:44 PM Referred By: Rashel Norris Confirmed By:Brandon Sena
[2019-05-30] MEDS: HEPARIN SOD 5,000 UNIT/0.5 ML VIAL SQ SCH (06:08)
[2019-05-30] MEDS: LEVOTHYROXINE SODIUM 50 MCG TABLET PO SCH (06:08)
[2019-05-30 06:29] LABS: Hematocrit (blood only) 38.9 % (37-47); Hemoglobin 12.8 g/dL (12.0-16.0); Mean Corpuscular Hemoglobin 30.5 pg (25-34); Mean Corpuscular Hgb Conc 32.9 g/dL (32-36); Mean Corpuscular Volume 92.6 fL (80-100); Mean Platelet Volume 11.1 fL (7.4-10.4); Platelet Count 189 K/uL (130-400); RDW Coefficient of Variation 13.8 % (11.5-14.5); RDW Standard Deviation 46.4 fL (36.4-46.3); White Blood Count 5.83 K/uL (4.8-10.8)
[2019-05-30 07:07] LABS: BUN Creatinine Ratio 18.5 (10-20); Calcium 8.4 mg/dl (8.5-10.1); Est GFR (African American) 58.6; Est GFR (Non-African American) 50.6; Potassium 3.7 mmol/L (3.5-5.1)
[2019-05-30] MEDS: AMLODIPINE BESYLATE 5 MG TAB PO SCH (08:06)
[2019-05-30] MEDS: FLUTICASONE/VILANTEROL 100/25MCG 14 PUFFS/INHALER INH SCH (08:06)
[2019-05-30] MEDS: SIMVASTATIN 10 MG TAB PO SCH (08:07)
[2019-05-30] MEDS: PANTOprazole 40 MG TAB PO SCH (08:07)
[2019-05-30] MEDS: clonazePAM 0.5 MG TAB PO SCH (08:12)
[2019-05-30] MEDS ORDERED: ISOSORBIDE MONO EXTENDED REL 30 MG TABCR PO SCH (09:00)
[2019-05-30] MEDS ORDERED: PARoxetine HCL 10 MG TAB PO SCH (09:00)
[2019-05-30] MEDS ORDERED: ASPIRIN 81 MG ECTAB PO SCH (09:00)
[2019-05-30] MEDS ORDERED: METOPROLOL SUCC 50MG EXT REL TAB PO SCH (09:00)
[2019-05-30] MEDS ORDERED: CHOLECALCIFEROL 1,000 UNITS 25 MCG TAB PO SCH (09:00)
--- NOTE | 2019-05-30 12:12 | Discharge Summary ---
Date of Service May 30, 2019 Admission HPI Per Admitting Provider History obtained from patient and records. Medical history significant for nonocclusive CAD as per records, hypertension, hyperlipidemia, CRI (baseline creatinine 1.2), OA, asthma, GERD, hypothyroidism, skin cancer as per records, history tremors on clonazepam, mild cognitive impairment as per records. Recent confinement September 2012 for thoracic vertebral fracture secondary to mechanical fall. 1 week history of diarrhea, loose stools sometimes with rectal bleed, somewhat worse with eating. No chest pain, no S OB, no abdominal pain, no fever, no chills. No recent antibiotics or no known sick contacts or recent travel. Patient noted dizziness described as lightheadedness the last few days, feeling wobbly on her feet. No headache. Admits to right-sided neck pain going to the shoulder. Patient has been busy the last few days moving her belongings to a new apartment at the [facility]. Patient seen at PCP's office. Blood pressure noted to be 195/84. Patient does not check blood pressure at home. No NSAID intake. Denies dietary indiscretion. Patient directed to the ER for evaluation. MEDICAL HISTORY: As above. Normal colonoscopy 2007. SURGICAL HISTORY: Breast biopsy. Ptosis surgery, blepharoplasty FAMILY HISTORY: hypertension. Heart disease, skin cancer, diabetes, tremors PERSONAL SOCIAL HISTORY: Nonsmoker. 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 Admission Exam Per Admitting Provider GENERAL: Comfortable, obese, pleasant, looks younger for stated age, no respiratory distress SKIN: Normal color, warm HEENT: [place] palpebral conjunctivae, no ptosis, dry buccal mucosa NECK : Supple, short neck, right cervical tenderness CHEST : CTA, no tenderness HEART : RRR, no obvious murmurs ABDOMEN: Some distention, nontender EXTREMITIES : No LE swelling/tenderness, minimal right shoulder tenderness, no other conspicuous deformities noted NEUROLOGIC : Coherent, no facial asymmetry, chronic rest tremors, no other gross focality Principal Diagnosis Near Syncope-resolved Hematochezia-resolved Diarrhea-resolved Discharge Exam CONSTITUTIONAL: WNWD, vitals as above, generally well-appearing EYES: normal conjunctivae, no scleral icterus ENT: MMM RESPIRATORY: clear to auscultation bilaterally, no crackles, rales or wheezes, normal respiratory effort CARDIOVASCULAR: regular rate and rhythm, S1 and 2 heard without murmurs, gallops or rubs, no JVD, no peripheral edema GASTROINTESTINAL: normal bowel sounds, soft, nontender, nondistended, no guarding. MUSCULOSKELETAL: strength 5/5 throughout, head is normocephalic and atraumatic SKIN: warm and dry NEUROLOGIC: CN 2-12 grossly intact, no sensory deficit, normal cognition, normal speech, no tremor, no gross focal deficits. PSYCHIATRIC: alert cooperative and oriented to person, place and time. Discharge Data Allergies Allergy/AdvReac Type Severity Reaction Status Date / Time Iodinated Contrast Media Allergy Unknown IVP DYE Verified 05/28/19 23:18 ALLERGY NSAIDS (Non-Steroidal Allergy Unknown UNKNOWN Unverified 05/28/19 23:18 Anti-Inflamma primidone Allergy Unknown UNKNOWN Unverified 05/28/19 23:18 sertraline Allergy Unknown UNKNOWN Unverified 05/28/19 23:18 Sulfa (Sulfonamide Allergy Unknown "SULFA" Verified 05/28/19 23:18 Antibiotics) ALLERGY Consultations 05/28/19 21:45 ED Decision to Admit Stat 05/29/19 08:41 Consult Gastroenterology Routine Ordered Studies 05/28/19 22:24 CT head/brain wo con Stat 05/28/19 22:30 CT cervical spine wo con Urgent Hospital Course (1) Near syncope: (2) Hematochezia: (3) Diarrhea: (4) Hypertension: 84-year-old female presented to the ER with near syncope, reporting a diarrheal illness and hematochezia. Aspirin was initially held and H&H was trended and remained stable and within the normal range. GI was consulted and saw her the following day recommending stool studies for C. difficile stool culture and ova and parasites which were negative. Given she had not undergone a colonoscopy for 12 years a nonurgent screening colonoscopy was recommended to be completed as outpatient. Her abdominal exam was benign. Orthostatic vital signs were checked and negative, and the following day she reported an overall improvement in what she calls vertigo. Physical and Occupational Therapy were consulted. Her blood pressure was initially elevated and her amlodipine was initially increased to 5 mg daily in addition to her other home medications which was continued during her admission. Based on her report of initial dizziness a CT of the head was performed revealing no acute intracranial abnormality. She did report some neck pain and right shoulder pain initially on admission which was not an issue for her moving forward after the first day. For this reason a cervical spine CT was performed revealing moderate to significant degenerative disc changes throughout the entire cervical region with no evidence for a significant bony compromise and moderate degenerative changes in the posterior elements throughout the entire cervical region. A shoulder x- ray was performed revealing no fracture or dislocation within the right shoulder with moderate osteoarthritis of the right AC joint. Her vertigo symptoms completely resolved, there were no further episodes of diarrhea or hematochezia. At time of discharge she was hemodynamically stable and afebrile and tolerating p.o. She was mentating and ambulating at baseline and was sent home in stable condition with close primary care follow-up recommended. Total Time Total Time Spent Total Time Spent (In Minutes): 60 Total Time Includes: Examination of the Patient, Discharge Planning, Medication Reconciliation and Communication With Other Providers Discharge Plan Discharge Items Patient Disposition: Home - Self-Care Reason For Visit: DIZZINESS, HTN URGENCY Discharge Diagnosis: Dizziness-resolved Hematochezia-resolved Condition on Discharge: Good Activity: Resume your previous activity Non-emergency contact: Primary Care Provider Call non-emergency contact if: you have any medication questions, your symptoms worsen, your pain is not controlled, your pain is worsening, your pain is unusual for you, your pain is concerning for you and you have a fever Follow-up/Referrals: Rashel Norris DO [Primary Care Provider] - 06/04/19 2:45 pm (If you need to change this appointment, please call [phone].) Diet: Low Sodium (2gm) Addtl Attending Provider Instructions: Please take all medications as instructed on discharge list below. It is recommended that you followup with your primary care provider within one week of discharge home. The purpose of this visit will be to ensure you are still doing well after going home, monitor the changes in your bowel movements and ensure no further bleeding or other symptoms have returned. A repeat check of your blood pressure will also be needed as this was elevated at the beginning of your hospital stay. It was a pleasure taking care of you! Please call if you have any questions or problems. You can reach a [facility] on duty at [facility] 24 hours a day by calling [phone]. Take care of yourself. Mahogany Pa DO [facility] Hospitalist Pending Studies at Discharge: No Stand-Alone Forms: My [facility], Smoking Cessation Medications and DC Order Prescriptions: Continued levothyroxine 50 mcg tablet 50 mcg PO DAILY RF: 0 fluticasone propion-salmeterol 100-50 mcg/dose blister with device 1 puffs inhalation BID Qty: 6 RF: 0 levalbuterol tartrate [Xopenex HFA] 45 mcg/actuation HFA aerosol inhaler 2 puffs INH Q4H PRN (Reason: shortness of breath or wheezing) RF: 0 clonazepam 0.5 mg tablet 0.5 mg PO TID PRN (Reason: Anxiety) Qty: 270 RF: 0 aspirin 81 mg tablet,delayed release (DR/EC) 81 mg PO DAILY RF: 0 omeprazole 20 mg tablet,delayed release (DR/EC) 20 mg PO DAILY RF: 0 simvastatin 20 mg tablet 10 mg PO DAILY RF: 0 cholecalciferol (vitamin D3) 1,000 unit capsule 1,000 units PO DAILY RF: 0 amlodipine 2.5 mg tablet 2.5 mg PO DAILY Qty: 90 RF: 3 metoprolol succinate 100 mg tablet extended release 24 hr 50 mg PO DAILY Qty: 50 RF: 3 paroxetine HCl 30 mg tablet 30 mg PO DAILY RF: 0 isosorbide mononitrate 30 mg tablet extended release 24 hr 30 mg PO DAILY RF: 0 Discharge Orders: Discharge Order (Routine); Ordered 05/30/19 Ordered By: Mahogany Romano/Other Patient Handouts: A1C Admission Data Admit Date/Time: 05/28/19 23:04 Attending Provider: Mahogany Pa Admit Provider: Amrik Mario Primary Care Provider: Rashel Norris Other Providers: Amrik Mario ; Renetta Mobley Other Interventions: Discharge Summary Assessment (RN) Last Done: 05/30/19 12:41 DC Date/Time DO NOT enter until pt leaves facility: 05/30/19 14:04
--- NOTE | 2019-06-13 10:06 | Coding Query ---
A supporting diagnosis is required for the test/procedure performed on this patient in order for us to be reimbursed by the patient's insurance. Please provide a supporting diagnosis for the following test/procedure listed below next to the test name along with your signature. *If there is no additional diagnosis for this patient that would support the following test/procedure please document that below next to the test/procedure. Test(s)/Procedure(s) that require a supporting diagnosis: SPEECH SOUND LANG COMPREHEN DIAGNOSIS: poss_ aspiration risk, cognitive impairment _ Provider Signature: JNO Date: ____06/14/19_ Thank you Marguerite Garibay Health Information Management Once completed, please kindly fax back to [phone] For questions please call [phone] DONOVAN
== END 2019-05-30 14:04 | disposition home or self-care (01) ==
LOC: ED 18:07 → 2N 18:07 → 4W 05-30 09:26

== ENCOUNTER 2021-09-09 19:05 | Observation (INO) ==
[2021-09-09 19:51] LABS: Basophils # (auto) 0.02 K/uL (0-0.2); Basophils % (auto) 0.3 %; Eosinophils # (auto) 0.18 K/uL (0-0.5); Eosinophils % (auto) 2.4 %; Hematocrit (blood only) 37.9 % (37-47); Hemoglobin 12.7 g/dL (12.0-16.0); Immature Granulocytes # (auto) 0.01 K/uL (0.00-0.02); Immature Granulocytes % (auto) 0.1 %; Lymphocytes # (auto) 1.47 K/uL (1.2-3.4); Lymphocytes % (auto) 19.8 %; Mean Corpuscular Hemoglobin 30.5 pg (25-34); Mean Corpuscular Hgb Conc 33.5 g/dL (32-36); Mean Corpuscular Volume 90.9 fL (80-100); Mean Platelet Volume 11.5 fL (7.4-10.4); Monocytes # (auto) 0.59 K/uL (0.11-0.59); Monocytes % (auto) 7.9 %; Neutrophils # (auto) 5.17 K/uL (1.4-6.5); Neutrophils % (auto) 69.5 %; Platelet Count 212 K/uL (130-400); RDW Coefficient of Variation 14.5 % (11.5-14.5); RDW Standard Deviation 48.7 fL (36.4-46.3); Red Blood Count 4.17 M/uL (4.2-5.4); White Blood Count 7.44 K/uL (4.8-10.8)
--- NOTE | 2021-09-09 19:55 | Emergency Department Note ---
Impression & Plan Acute loss of vision, Arterial branch occlusion of retina ED Provider Note NAME: BRANDON RANGEL AGE: 86 SEX: F : 1935 ARRIVES VIA: Walk-In INFORMANT: Patient, ED PROVIDER(S): Brandon Mcdaniels DO CHIEF COMPLAINT: Loss of vision HPI: The patient is an 86-year-old female who presented to the emergency department for an evaluation of painless loss of vision. The patient noticed painless loss of vision in her left eye between 5 and 530 this evening. She states she has no other symptoms. She denies having any headache. She denies having any nausea or vomiting. She denies having any weakness in the arms or legs. She does have a history of a heart murmur but she is never had a history of atrial fibrillation in the past. She states she does take aspirin. She states that she has a history of labyrinthitis in the past. She did see her therapist today and she had this addressed earlier in the day. She states she has no dizziness at this time. The patient's not been seen by her doctor for the symptoms. She lives at [facility] and when she told the staff there they recommended she come to the emergency department. ROS: See above HPI for pertinent positives & negatives. A total of 10 systems reviewed and were otherwise negative. PAST MEDICAL HISTORY: See Below PAST SURGICAL HISTORY: See Below FAMILY HISTORY: See Below SOCIAL HISTORY: See Below HOME MEDICATIONS: See Below ALLERGIES: See Below VITALS: See Below PHYSICAL EXAMINATION: GENERAL: Patient is awake alert in no acute distress patient is resting comfortably and showing no signs of anxiety EYES: The conjunctivae are clear. The pupils are round and reactive. The patient appears to have a cut in her visual field in the superior part of her visual field. Extraocular muscles are intact. EARS, NOSE, MOUTH AND THROAT: The nose is without any evidence of any deformity. Mucous membranes are moist. Tongue is midline. NECK: The neck is nontender and supple. RESPIRATORY: Normal respiratory effort is noted there is no evidence of wheezing rhonchi or rales CARDIOVASCULAR: Regular heart sounds were noted auscultation. Systolic murmur was suggested. GASTROINTESTINAL: The abdomen is soft. Abdomen is nontender. MUSCULOSKELETAL/EXTREMITIES: There is no evidence of gross deformity full range of motion is noted in the hips and shoulders. SKIN: There is no obvious evidence of any rash. There are no petechiae, pallor or cyanosis noted. NEUROLOGIC: Patient is awake alert and oriented x3 strength is symmetric leos lar reflexes are 2+ bilaterally MEDICAL DECISION MAKING: The patient is an 86-year-old female who presented to the emergency department with an acute loss of vision in her left eye. This was painless in nature. The patient was not found to have an elevated intraocular pressure. Vision did slowly improve while she was in the emergency department. She started to be able to see colors. Her presentation does appear to be more consistent with a branch retinal artery occlusion. I discussed the patient's laboratory and radiographic studies with her. She does have a cardiac murmur and she was found to have elevated blood pressure. I discussed her condition with the on-call [facility] hospitalist. I also discussed her case with the on-call ophthalm ologist. She may require further inpatient work-up for stroke or possibly echocardiogram to evaluate for an embolic source. The patient was agreeable with this plan. Triage Nursing notes reviewed. Prior medical records reviewed Vital Signs: reviewed and remarkable for elevated blood pressure. Differential diagnosis: Conjunctivitis, trauma, corneal abrasion, hyphema, glaucoma, iritis, corneal ulcer, dendrite, CRAO, CRVO, vitreous detachment, retinal detachment, as well as other pathologies. ER treatment provided: See below Diagnostics interpreted by me: ECG: EKG was obtained in the emergency department. My interpretation is normal sinus rhythm at 62 bpm. Right bundle branch block pattern was noted. LVH was suggested by voltage criteria. This was compared to a tracing from May 28, 2019. No changes were noted. Cardiac Monitoring: An order was placed for continuous cardiac monitoring. The monitor shows a rate of 61 bpm with sinus rhythm. Laboratory studies: As stated above and show below. Imaging studies: See below Consultation(s): I discussed this case with Dr. Knott [facility] I discussed this case with Dr. Walton is on-call for ophthalmology. Given the patient's presentation he is suspicious for a branch retinal artery occlusion. He does recommend further work-up as an inpatient such as echocardiogram and possibly further angiography such as MRI of the brain with MRA of the head and neck. ED COURSE: Procedures: Measurement of intraocular pressures was done. The left was 16. The right was 12. Past Med/Surg History Medical History Essential tremor GERD (gastroesophageal reflux disease) Heart block Hypercholesterolemia Osteoporosis Secondary hyperparathyroidism Sensorineural hearing loss of both ears Vitamin D deficiency Surgical History History of breast lump removal Hx of blepharoplasty Hx of repair of rotator cuff Hx of tonsillectomy Family History Father Hypertension Heart disease Mother Hypertension Asthma Other Cancer Diabetes Kidney disease Lung disease No family history of adverse response to anesthesia No family history of bleeding disorder Social History Smoking Status: Never smoker Second Hand Exposure: No; Hx Alcohol Use: Yes Alcohol type: wine Alcohol Intake Frequency Comment: occasional Hx Substance Use: No Preferred Language: French Communication Ability: 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 Gasoline Required: No Beliefs That Will Affect Care: None marital status: / Current Living Situation: Alone current occupational status: retired Feels Safe at Home: Yes Assistive Devices: Glasses and Walker Allergies Allergies Allergy/AdvReac Type Severity Reaction Status Date / Time Iodinated Contrast Media Allergy Unknown IVP DYE Verified 09/09/21 19:58 ALLERGY NSAIDS (Non-Steroidal Allergy Unknown UNKNOWN Verified 09/09/21 19:58 Anti-Inflamma primidone Allergy Unknown UNKNOWN Verified 09/09/21 19:58 sertraline Allergy Unknown UNKNOWN Verified 09/09/21 19:58 Sulfa (Sulfonamide Allergy Unknown "SULFA" Verified 09/09/21 19:58 Antibiotics) ALLERGY Home Meds Home Medications Medication Instructions Recorded Confirmed cholecalciferol (vitamin D3) 25 2,000 unit PO DAILY cap 05/18/20 09/09/21 mcg (1,000 unit) capsule atorvastatin 20 mg tablet 20 mg PO DAILY 06/01/21 09/09/21 buspirone 5 mg tablet 5 mg PO BID 06/01/21 09/09/21 meclizine 12.5 mg tablet 12.5 mg PO TID PRN 06/01/21 09/09/21 omeprazole 40 mg capsule,delayed 40 mg PO DAILY 06/01/21 09/09/21 release hydrochlorothiazide 25 mg tablet 12.5 mg PO DAILY 09/09/21 09/09/21 levothyroxine 50 mcg tablet 50 mcg PO DAILYBB 09/09/21 09/09/21 (Synthroid) metoprolol succinate 50 mg 50 mg PO DAILY 09/09/21 09/09/21 tablet,extended release 24 hr paroxetine HCl 20 mg tablet 20 mg PO DAILY 09/09/21 09/09/21 Previous Rx's Medication Instructions Recorded amlodipine 2.5 mg tablet 2.5 mg PO DAILY #90 tab 05/27/21 famotidine 20 mg tablet (Acid 20 mg PO DAILY #90 tab 06/02/21 Aquatic Director (famotidine)) fluticasone fur. 100 mcg-umeclid 1 inh INHALATION DAILY #3 inhaler 08/11/21 62.5 mcg-vilant 25 mcg inhalat.powder (Trelegy Ellipta) fluticasone propionate 50 2 spray INTRANASAL DAILY #15.8 g 08/24/21 mcg/actuation nasal spray,suspension mupirocin 2 % topical ointment 1 applic TOPICAL BID #15 g 08/24/21 Results & Data (ED) Vital Signs Vital Signs - 24 hr 09/09/21 19:08 09/09/21 20:06 09/09/21 22:00 Temperature 36.7 C 36.8 C Temperature Source Temporal Artery Scan Oral Pulse Rate 74 Pulse Rate [Apical] 61 65 Pulse Rhythm [Apical] Regular Regular Pulse Strength [Apical] Normal Normal Respiratory Rate 18 18 18 Respiratory Effort / Characteristics Non-Labored Spontaneous Non-Labored Spontaneous Non-Labored Spontaneous Respiratory Depth Normal Normal Normal Respiratory Pattern Regular Regular Blood Pressure 148/74 H Blood Pressure [Right Arm] 238/71 H Blood Pressure Mean 98 Blood Pressure Mean [Right Arm] 126 Blood Pressure Position [Right Arm] Sitting Pulse Oximetry 94 95 96 Oxygen Delivery Method Room Air Room Air Room Air Sepsis Recent Fever Within 48 Hours No Sepsis New/Unexplained Change in Mental Status No Sepsis Action Taken by Nursing No Action Required Home Medications Current Medication List: was personally reviewed by me Laboratory Data Attestation: I reviewed the patient's lab results. Result diagrams: 09/09/21 19:15 09/09/21 20:31 Lab Results 09/09/21 09/09/21 09/09/21 Range/Units 19:15 19:15 19:15 WBC 7.44 (4.8-10.8) K/uL RBC 4.17 L (4.2-5.4) M/uL Hgb 12.7 (12.0-16.0) g/dL Hct 37.9 (37-47) % MCV 90.9 (80-100) fL MCH 30.5 (25-34) pg MCHC 33.5 (32-36) g/dL RDW Std Deviation 48.7 H (36.4-46.3) fL RDW Coeff of Lakshmi 14.5 (11.5-14.5) % Plt Count 212 (130-400) K/uL MPV 11.5 H (7.4-10.4) fL Immature Gran % (Auto) 0.1 % Neut % (Auto) 69.5 % Lymph % (Auto) 19.8 % Monroe % (Auto) 7.9 % Eos % (Auto) 2.4 % Baso % (Auto) 0.3 % Neut # (Auto) 5.17 (1.4-6.5) K/uL Lymph # (Auto) 1.47 (1.2-3.4) K/uL Monroe # (Auto) 0.59 (0.11-0.59) K/uL Eos # (Auto) 0.18 (0-0.5) K/uL Baso # (Auto) 0.02 (0-0.2) K/uL Immature Gran # (Auto) 0.01 (0.00-0.02) K/uL ESR 34 H (0-30) mm/hr PT (9.0-12.0) Seconds INR (0.9-1.1) APTT (21.0-31.0) Seconds PTT Ratio Sodium 138 (136-145) mmol/L Potassium TNP Chloride 106 (98-107) mmol/L Carbon Dioxide 24 (21-32) mmol/L Anion Gap 8 (3-11) BUN 22 (6-23) mg/dl Creatinine 1.14 (0.6-1.2) mg/dl Est Cr Clr Drug Dosing 32.5 ml/min Est GFR ( Amer) 51.1 ml/min Est GFR (Non-Af Amer) 44.1 ml/min BUN/Creatinine Ratio 19.3 (10-20) Glucose 134 H (70-99(Fasting)) mg/dl Calcium 9.2 (8.5-10.1) mg/dl Troponin I High Sens (0-14) pg/ml C-Reactive Protein (0-0.5) mg/dl 09/09/21 09/09/21 09/09/21 Range/Units 19:15 20:31 Unknown WBC (4.8-10.8) K/uL RBC (4.2-5.4) M/uL Hgb (12.0-16.0) g/dL Hct (37-47) % MCV (80-100) fL MCH (25-34) pg MCHC (32-36) g/dL RDW Std Deviation (36.4-46.3) fL RDW Coeff of Lakshmi (11.5-14.5) % Plt Count (130-400) K/uL MPV (7.4-10.4) fL Immature Gran % (Auto) % Neut % (Auto) % Lymph % (Auto) % Monroe % (Auto) % Eos % (Auto) % Baso % (Auto) % Neut # (Auto) (1.4-6.5) K/uL Lymph # (Auto) (1.2-3.4) K/uL Monroe # (Auto) (0.11-0.59) K/uL Eos # (Auto) (0-0.5) K/uL Baso # (Auto) (0-0.2) K/uL Immature Gran # (Auto) (0.00-0.02) K/uL ESR (0-30) mm/hr PT 10.9 (9.0-12.0) Seconds INR 1.0 (0.9-1.1) APTT 26.8 (21.0-31.0) Seconds PTT Ratio 1.0 Sodium (136-145) mmol/L Potassium 3.8 Chloride (98-107) mmol/L Carbon Dioxide (21-32) mmol/L Anion Gap (3-11) BUN (6-23) mg/dl Creatinine (0.6-1.2) mg/dl Est Cr Clr Drug Dosing ml/min Est GFR ( Amer) ml/min Est GFR (Non-Af Amer) ml/min BUN/Creatinine Ratio (10-20) Glucose (70-99(Fasting)) mg/dl Calcium (8.5-10.1) mg/dl Troponin I High Sens 8.9 (0-14) pg/ml C-Reactive Protein 0.52 H (0-0.5) mg/dl Imaging Data Radiologist's Impression: Head CT 09/09/21 19:11 CT head/brain wo con CLINICAL HISTORY: Blurry vision left eye Technique: Contiguous axial CT images of the head were acquired from the base of the skull to the vertex without intravenous contrast administration. Images were viewed in brain, subdural and bone windows. Automated dose lowering techniques and/or adjustment according to patient size were utilized for this exam. Comparison: Comparison is made to CT head 05/28/2019 Findings: The ventricles, basal cisterns, and cerebral sulci are normal. There is no acute intracranial hemorrhage or evidence of acute territorial infarction. Neither mass effect, shift of the midline structures, nor abnormal extra-axial fluid collections are shown. Imaged portions of the paranasal sinuses and mastoid air cells are clear. The orbits appear normal. There are no acute fractures of the calvaria or scalp swelling. Impression: No acute intracranial hemorrhage, no evidence of acute territorial infarction or other acute intracranial disease process. ACT 112: Negative or not required by law. Electronically signed by: Chi Golden M.D. 09/09/2021 8:02 PM Discharge Plan Visit Data Chief Complaint: Eye Problems Stated Complaint: CANNOT SEE OUT OF L EYE ED Provider: Brandon Mcdaniels Discharge Problem: Acute loss of vision, Arterial branch occlusion of retina Patient Disposition: Being Evaluated by Hospitalist Forms Stand Alone Forms: [facility] Prescriptions Prescriptions: No Action famotidine [Acid Aquatic Director (famotidine)] 20 mg tablet 20 mg PO DAILY Qty: 90 RF: 2 cholecalciferol (vitamin D3) 25 mcg (1,000 unit) capsule 2,000 unit PO DAILY RF: 0 buspirone 5 mg tablet 5 mg PO BID RF: 0 atorvastatin 20 mg tablet 20 mg PO DAILY RF: 0 omeprazole 40 mg capsule,delayed release(DR/EC) 40 mg PO DAILY RF: 0 meclizine 12.5 mg tablet 12.5 mg PO TID PRN (Reason: Dizziness) RF: 0 amlodipine 2.5 mg tablet 2.5 mg PO DAILY Qty: 90 RF: 3 fluticasone propionate 50 mcg/actuation spray,suspension 2 spray intranasal DAILY Qty: 15.8 RF: 2 mupirocin 2 % ointment 1 applic topical BID Qty: 15 RF: 2 Trelegy Ellipta 100-62.5-25 mcg blister with device 1 inh inhalation DAILY Qty: 3 RF: 3 paroxetine HCl 20 mg tablet 20 mg PO DAILY RF: 0 levothyroxine [Synthroid] 50 mcg tablet 50 mcg PO DAILYBB RF: 0 metoprolol succinate 50 mg tablet extended release 24 hr 50 mg PO DAILY RF: 0 hydrochlorothiazide 25 mg tablet 12.5 mg PO DAILY RF: 0 Referrals Referrals: Heather Harper MD [Primary Care Provider] -
--- NOTE | 2021-09-09 20:04 | CT Scan Report ---
CT head/brain wo con CLINICAL HISTORY: Blurry vision left eye Technique: Contiguous axial CT images of the head were acquired from the base of the skull to the doreen gunjan without intravenous contrast administration. Images were viewed in brain, subdural and bone [facility]. Automated dose lowering techniques and/or adjustment according to patient size were utilized for this exam. Comparison: Comparison is made to CT head 05/28/2019 Findings: The ventricles, basal cisterns, and cerebral sulci are normal. There is no acute intracranial hemorrh age or evidence of acute territorial infarction. Neither mass effect, shift of the midline structures , nor abnormal extra-axial fluid collections are shown. Imaged portions of the paranasal sinuses and mastoid air cells are clear. The orbits appear normal. There are no acute fractures of the calvaria or scalp swelling. Impression: No acute intracranial hemorrhage, no evidence of acute territorial infarction or other acute intracra nial disease process. ACT 112: Negative or not required by law. Electronically signed by: Chi Golden M.D. 09/09/2021 8:02 PM
[2021-09-09 20:23] LABS: Anion Gap 8 (3-11); BUN Creatinine Ratio 19.3 (10-20); Blood Urea Nitrogen 22 mg/dl (6-23); Calcium 9.2 mg/dl (8.5-10.1); Carbon Dioxide 24 mmol/L (21-32); Chloride 106 mmol/L (98-107); Creatinine Clr Calc Pharmacy 32.5 ml/min; Est GFR (African American) 51.1 ml/min; Est GFR (Non-African American) 44.1 ml/min; Glucose 134 mg/dl (70-99(Fasting)); Sodium 138 mmol/L (136-145)
[2021-09-09 20:29] LABS: Partial Thromboplastin Time 26.8 Seconds (21.0-31.0); Prothrombin Time 10.9 Seconds (9.0-12.0)
[2021-09-09 20:48] LABS: Troponin I High Sensitivity 8.9 pg/ml (0-14)
[2021-09-09 21:03] LABS: C Reactive Protein 0.52 mg/dl (0-0.5)
[2021-09-09] MEDS ORDERED: hydrALAZINE HCL 20 MG/ML VIAL IV STA (23:50)
[2021-09-10] MEDS ORDERED: hydrALAZINE HCL 20 MG/ML VIAL IV ONE (01:00)
[2021-09-10] MEDS ORDERED: MECLIZINE 12.5 MG TAB PO PRN (01:48)
[2021-09-10] MEDS ORDERED: CLOPIDOGREL BISULFATE 300 MG TAB PO ONE (01:48)
[2021-09-10] MEDS ORDERED: ACETAMINOPHEN 325 MG TAB PO PRN (01:48)
[2021-09-10] MEDS ORDERED: POLYETHYLENE (MIRALAX) 17 GM PACK PO PRN (01:48)
[2021-09-10] MEDS ORDERED: PHARMACIST DISCHARGE MED REC CONSULT PRN (01:48)
[2021-09-10] MEDS ORDERED: hydrALAZINE HCL 20 MG/ML VIAL IV PRN (01:48)
[2021-09-10] MEDS ORDERED: ONDANSETRON INJ 2 MG/ML 2 ML VIAL IV PRN (01:48)
[2021-09-10] MEDS ORDERED: NITROGLYCERIN SL 0.4 MG/TAB TAB SL PRN (01:48)
[2021-09-10] MEDS: busPIRone 5 MG TAB PO SCH ×3 (02:25→21:06)
[2021-09-10] MEDS ORDERED: GADOBUTROL 65ML VIAL IV ONE (03:38)
--- NOTE | 2021-09-10 05:06 | History and Physical Report ---
DATE OF ADMISSION: 09/09/2021. CHIEF COMPLAINT: Left eye vision loss. HISTORY OF PRESENT ILLNESS: An 86-year-old female with past medical history significant for hypothyroidism, hyperlipidemia, secondary hyperparathyroidism, asthma, diaphragmatic hernia, hypertension, chronic kidney disease stage III, GERD, osteoporosis, degenerative cervical disk disease, essential tremor, mild cognitive impairment with memory loss, depression, generalized anxiety, presents with left eye vision loss. The patient states around 5-530 p.m., she had left eye vision loss. She just could see the floor from that eye. Denies any headache or dizziness. Currently, when I am examining, the vision has slowly improved. She can see up to the half of the eye only, the top vision is blurred and even cloudiness is improved. Denies any headache, no neck pain, She recently had earache and dizziness but that resolved now. No runny nose, no sore throat, no cough, no fevers, no chest pain. Once in a while she gets short of breath. No nausea, no vomiting. Appetite is good. No difficulty swallowing. Normal bowel and bladder movements. No swelling in the legs. Ambulates okay. Blood pressure is running high today. She says lately her blood pressure somewhat running high. ALLERGIES: IODINATED CONTRAST MEDIA, NSAID'S, PRIMIDONE, SERTRALINE, SULFA ANTIBIOTICS. PAST MEDICAL HISTORY: As mentioned above. PAST SURGICAL HISTORY: Breast lesion excision, colonoscopy, colonoscopy with biopsy, repair of the drooping eyebrow bilaterally.. MEDICATIONS: The patient is on amlodipine 2.5 mg p.o. daily, atorvastatin 20 mg p.o. daily, buspirone 5 mg p.o. b.i.d., vitamin D 2000 International Units p.o. daily, famotidine 20 mg p.o. daily, Breo Ellipta one inhalation daily, Flonase 2 sprays intranasal daily, hydrochlorothiazide 12.5 mg p.o. daily, levothyroxine 50 mcg p.o. daily, meclizine 12.5 mg p.o. t.i.d. p.r.n., metoprolol succinate 50 mg p.o. daily, mupirocin ointment topical b.i.d., omeprazole 40 mg p.o. daily, paroxetine 20 mg p.o. daily. FAMILY HISTORY: Significant for mother has arthritis, asthma, hypertension; father has familial tremor, skin cancer and diabetes, pacemaker, hypertension. Daughter has obesity. SOCIAL HISTORY: . No smoking. Alcohol occasional. No drug use. REVIEW OF SYSTEMS: As per HPI. Rest of review of systems is negative. PHYSICAL EXAMINATION: GENERAL: The patient is obese, not in acute distress. VITAL SIGNS: Temperature 36.8, pulse 64, respiratory rate 18, blood pressure 213/71, oxygen 96% on room air. HEENT: Atraumatic. Extraocular muscles intact. Superficial vision in the left eye is affected. NECK: No JVD. No masses. CARDIOVASCULAR: S1 and S2 heard. Regular rate and rhythm. No murmur, no gallop. RESPIRATORY SYSTEM: Normal AP diameter. No accessory muscle use. No wheezing, no crackles. ABDOMEN: Soft. Bowel sounds are present, nontender, no distention. CENTRAL NERVOUS SYSTEM: Alert and oriented. Speech is clear. No facial droop. External ocular muscles intact. Left eye vision is impaired. Power 5/5 in all extremities. No pronator drift. Coordination of movements normal. Sensation is intact. Position sense intact. EXTREMITIES: No edema, no erythema. LABORATORY: WBC 7.4, hemoglobin 12.7, hematocrit 37.9, platelets 212. ESR 34. PT10.9 INR 1, APTT 26.8. Sodium 138, potassium 3.8, chloride 106, bicarb 24, BUN 22, creatinine 1.1, serum glucose 134, calcium 9.2. Troponin I high sensitivity 8.2. C-reactive protein 0.5. SARS-CoV-2 rapid test negative. IMAGING: CT of the head, no acute findings. EKG: Normal sinus rhythm, right bundle-branch block at a rate of 62. ASSESSMENT AND PLAN: This is an 86-year-old female who presents with painless left eye vision loss. 1. Painless left eye vision loss: Vision is somewhat improving. As per the ER, no increase in intraocular pressures. The patient lives at [place]. She takes aspirin at home. 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 Consult neurology and ophthalmology in a.m. Monitor in the tele floor. PT, OT when stable. 2. Hypertension: Currently blood pressure is elevated. Continue home hydrochlorothiazide, metoprolol, amlodipine, place on IV hydralazine p.r.n., need to adjust blood pressure medications at the time of discharge. 3. Hyperlipidemia: Continue statin. Follow lipid profile. 4. Gastroesophageal reflux disease: On omeprazole. 5. Depression and anxiety: On paroxetine. 6. History of asthma, moderate, persistent: Continue home inhalers, currently stable. 7. Stage III chronic kidney disease: Creatinine of 1.1. We will follow the labs. 8. Deep venous thrombosis prophylaxis: Sequential compression devices for now. DISPOSITION: Closely monitor in the tele floor. PT/OT prior to discharge. Social Service to help with discharge planning. Level 1 full code. Job ID: [id number] MTDD
[2021-09-10] MEDS: LEVOTHYROXINE SODIUM 50 MCG TABLET PO SCH (05:51)
--- NOTE | 2021-09-10 07:20 | Magnetic Resonance Report ---
MR ANGIOGRAM OF THE BRAIN CLINICAL HISTORY: Left-sided vision loss. COMPARISON STUDY: MRI of the brain performed concurrently on 09/10/2021. TECHNIQUE: 3-D [id number] MR angiography of the intracranial circulation is performed. 3-D tumble views are created and assessed. IV contrast was not administered for this examination. FINDINGS: The internal carotid arteries are widely patent bilaterally, as are the anterior and middle cerebral arteries. The vertebrobasilar system and posterior cerebral arteries are widely patent. The vertebral arteries are codominant. There is no aneurysm, high-grade stenosis, or focal vessel cutoff seen throughout the intracranial circulation. The brain parenchyma is normal as visualized. IMPRESSION: Unremarkable MR angiogram of the brain. ACT 112: Negative or not required by law. Electronically signed by: Khang Almeida M.D. 09/10/2021 7:19 AM
[2021-09-10 07:30] LABS: Basophils # (auto) 0.02 K/uL (0-0.2); Basophils % (auto) 0.2 %; Eosinophils # (auto) 0.22 K/uL (0-0.5); Eosinophils % (auto) 2.7 %; Hematocrit (blood only) 38.7 % (37-47); Hemoglobin 12.9 g/dL (12.0-16.0); Immature Granulocytes # (auto) 0.01 K/uL (0.00-0.02); Immature Granulocytes % (auto) 0.1 %; Lymphocytes # (auto) 1.81 K/uL (1.2-3.4); Lymphocytes % (auto) 22.3 %; Mean Corpuscular Hemoglobin 29.9 pg (25-34); Mean Corpuscular Hgb Conc 33.3 g/dL (32-36); Mean Corpuscular Volume 89.6 fL (80-100); Monocytes # (auto) 0.54 K/uL (0.11-0.59); Monocytes % (auto) 6.7 %; Neutrophils # (auto) 5.52 K/uL (1.4-6.5); Platelet Count 191 K/uL (130-400); RDW Coefficient of Variation 14.6 % (11.5-14.5); RDW Standard Deviation 48.1 fL (36.4-46.3); Red Blood Count 4.32 M/uL (4.2-5.4); White Blood Count 8.12 K/uL (4.8-10.8)
[2021-09-10] MEDS: METOPROLOL SUCC 50MG EXT REL TAB PO SCH (07:54)
[2021-09-10] MEDS: amLODIPine BESYLATE 5 MG TAB PO SCH (07:54)
[2021-09-10 07:55] LABS: Estimated Average Glucose 128 mg/dl; Hemoglobin A1C 6.1 % (4.5-5.6)
[2021-09-10] MEDS: CHOLECALCIFEROL 1,000 UNITS 25 MCG TAB PO SCH (07:55)
[2021-09-10] MEDS: PANTOprazole 40 MG TAB PO SCH (07:56)
[2021-09-10] MEDS: PARoxetine HCL 20 MG TAB PO SCH (07:56)
[2021-09-10] MEDS: hydroCHLOROthiazide 25 MG TAB PO SCH (07:56)
[2021-09-10] MEDS: FAMOTIDINE 20 MG TAB PO SCH (07:56)
[2021-09-10] MEDS: ASPIRIN 81 MG ECTAB PO SCH (07:56)
[2021-09-10] MEDS: ATORVASTATIN 20 MG TAB PO SCH (07:56)
[2021-09-10] MEDS: MUPIROCIN 2% OINT 22 GM TUBE TOP SCH ×2 (07:57→21:06)
[2021-09-10] MEDS: FLUTICASONE PROPIONATE NA SPR 16 GM BTL SCH (07:57)
[2021-09-10] MEDS: UMECLIDINIUM/VILANTEROL 62.5/25MCG 7 PUFFS/INHALER INH SCH (07:57)
[2021-09-10] MEDS: FLUTICASONE FUROATE 100MCG 14 PUFFS/INHALER INH SCH (07:58)
[2021-09-10 08:08] LABS: BUN Creatinine Ratio 21.7 (10-20); Calcium 8.6 mg/dl (8.5-10.1); Chol HDL Ratio 2.8 (0-5); Creatinine Clr Calc Pharmacy 40.5 ml/min; Est GFR (African American) 66.3 ml/min; Est GFR (Non-African American) 57.2 ml/min; Potassium 3.6 mmol/L (3.5-5.1)
[2021-09-10] MEDS ORDERED: NON-FORMULARY MEDICATION (Fluticasone-Umeclidin-Vilanter [Trelegy Ellipta] 100-62.5-25 mcg INH SCH (09:00)
--- NOTE | 2021-09-10 09:07 | Magnetic Resonance Report ---
MR angio neck wo/w con CLINICAL HISTORY: CVA? left eye vision loss COMPARISON STUDY: No previous studies for comparison. TECHNIQUE: Unenhanced and contrast-enhanced MRA of the neck was performed. Intravenous injection of 7 cc of Gadavist was uneventful. FINDINGS: The right vertebral artery is dominant and patent. The origin of the left vertebral artery is not well assessed on this examination. Otherwise, the bilateral vertebral arteries are unremarkabl e. The bilateral common carotid and cervical internal carotid arteries are patent. No stenosis within these vessels. No dissection is identified by MRI. No aneurysm within neck is noted. IMPRESSION: 1. No stenosis within the bilateral common carotid or cervical internal carotid arteries. 2. Suboptimal evaluation of the left vertebral artery origin. Stenosis at the vessel origin cannot b e excluded. Dominant, patent right vertebral artery. ACT 112: Negative or not required by law. Electronically signed by: Adrian Hernandez M.D. 09/10/2021 9:04 AM
--- NOTE | 2021-09-10 09:10 | Magnetic Resonance Report ---
MRI OF THE BRAIN WITHOUT AND WITH IV CONTRAST CLINICAL HISTORY: left eye vision loss COMPARISON STUDY: Head CT September 09, 2021. TECHNIQUE: Utilizing a 1.5 Uma magnet and dedicated coil, multiplanar, multiecho imaging of the br ain was performed pre and postcontrast administration. IV administration of 7 mL of Gadavist contras t was uneventful. FINDINGS: There are no foci of restricted diffusion to suggest acute infarct. No acute intracranial h emorrhage, midline shift or mass effect is present. Ventricular system is unremarkable. Basal cistern s are patent. Flow-voids for the major intracranial vessels are present. There is no intracranial mas s or pathologic enhancement. White matter T2 hyperintense foci suggest moderate small vessel disease. Calvarial signal is normal. Orbits are unremarkable. There is no evidence for sinusitis. There is no mastoid fluid. Bilateral lens replacement is incidentally noted. IMPRESSION: 1. No acute intracranial findings. 2. No intracranial mass or pathologic enhancement. 3. Mild atrophy and moderate small vessel disease. ACT 112: Negative or not required by law. Electronically signed by: Adrian Hernandez M.D. 09/10/2021 9:08 AM
--- NOTE | 2021-09-10 11:32 | Electrocardiogram Report ---
Test Reason : Blood Pressure : / mmHG Vent. Rate : 062 BPM Atrial Rate : 062 BPM P-R Int : 204 ms QRS Dur : 134 ms QT Int : 456 ms P-R-T Axes : 062 078 014 degrees QTc Int : 462 ms Normal sinus rhythm Right bundle branch block Abnormal ECG When compared with ECG of 28-MAY-2019 20:20, T wave inversion more evident in Anterior leads Confirmed by Antwan Ash ([id number]) on 09/10/2021 11:31:57 AM Referred By: REFERRED SELF Confirmed By:Karl Ash
[2021-09-10] MEDS: CLOPIDOGREL BISULFATE 75 MG TAB PO SCH (13:56)
[2021-09-10] MEDS ORDERED: POTASSIUM CHLORIDE CRTAB 20 MEQ TABCR PO STA (16:20)
--- NOTE | 2021-09-10 16:22 | Communication Note ---
Date of Service: September 10, 2021 Neurology was asked to see Mrs. Ro an 86-year-old white right-handed resident of [facility] who presented last evening with the abrupt onset of left monocular visual loss which initially spared the very inferior portions of her left monocular visual field and then over the course of the day began to affect only the very upper portions of her left monocular visual field was never associated with headache scalp tenderness jaw claudication fever significant myalgias or arthralgias weight loss or any systemic complaints never involved the right eye. 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 EKG shows no significant arrhythmias and no atrial fibrillation has been detected Her home medications include amlodipine levothyroxine meclizine mupirocin omeprazole paroxetine and apparently a baby aspirin a day in addition to BuSpar cholecalciferol foam Inadine atorvastatin She claims allergies to IVP dye, nonsteroidal anti-inflammatory agents, primidone sertraline She was started on Plavix and continues that at the present time combination of the aspirin She was to be seen by ophthalmology but I do not see a consultation at this time Family history and social history noncontributory Review of systems reveals no symptoms suggestive of an underlying temporal arteritis or other systemic disease Laboratory studies are unremarkable with exception of a sed rate of 34 which at her age is probably not that significantly elevated Today her blood pressure 131/64 pulse 57 respirations are 18 she is afebrile has normal O2 saturation 96%. She is awake alert oriented 3 spheres is not quite nice description of her visual field deficits talks about some positive colored phenomenon in the upper visual field being the horizontal meridian and claims to have intact vision in her lower visual field. When she looks in a clock she has difficulty picking out the numbers 10, 11, 12, 1 and 2 but can see numbers 3 through 9 fairly clearly with her left eye There is no visual deficits subjectively with the right eye The rest of the examination is normal with clear speech normal facial motility and strength normal facial sensation no temporal artery irregularities or tenderness with no abnormal involuntary movements drift pronation sign with good strength grossly intact reflexes absence of pathologic reflexes and normal gross sensory examination allowing for some mild vibratory loss distally over the lower extremities which is appropriate for age Imaging studies are described above and in more detail on the EMR but basically showed no evidence for potential source of emboli in the carotid systems or on cardiac echo My suspicions are that 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 Whether this is a cholesterol plaque or an atheroembolic event will require ophthalmologic evaluation and hopefully this can be achieved soon I cannot totally exclude a nonarteritic anterior ischemic optic neuropathy nor can I totally exclude an arteritic optic neuropathy but doubt the latter I really doubt that this is a venous side issue I concur with treatment with dual antiplatelet agents for least 3 weeks, I would get an outpatient Zio patch unless ophthalmology finds evidence that this is a cholesterol plaque which might imply a small plaque ulceration in the carotid system not detected by MR angiography or an ulcerated plaque in aorta which also would not of been evaluated adequately by MR angiography and treatment for this would still be antiplatelet drugs for 3 weeks and then a single antiplatelet agent probably Plavix in light of the fact she was taking aspirin when this event occurred Neurology would be happy to reassess her on an outpatient basis once she is seen by ophthalmology and a definite diagnosis established I do not favor temporal artery biopsy at this time unless ophthalmology would feel there are features of this that suggest the possibility of temporal arterit is in which case then steroid therapy and a biopsy can be scheduled and she should be probably followed up with rheumatology I will be signing off the case at this time but would be happy to reassess her in the future Abisai Pimentel MD Note was generated utilizing voice recognition technology and may have spelling errors punctuation errors pronoun usage errors and syntax errors
--- NOTE | 2021-09-10 16:35 | Hospitalist Progress Note ---
Date of Service September 10, 2021 Assessment & Plan (1) Acute loss of vision: Plan: 86-year-old female with past medical history of significant for hypothyroidism, hyperlipidemia, secondary hyperparathyroidism, asthma, diaphragmatic hernia, hypertension, chronic kidney disease stage III, GERD, osteoporosis, degenerative cervical disk disease, essential tremor, mild cognitive impairment with memory loss, depression, generalized anxiety, presented 09/09 to ED with left eye vision loss. The patient states around 5-530 p.m. on the day of arrival, she had painless left eye vision loss. She just could see the floor from that eye. Denies any headache or dizziness. She is being managed for the followin. Painless left eye vision loss: Likely CRAO Patient presents with painless left eye vision loss around 5 to 5:30 PM on the day of arrival. Already improving by the time she arrived at ER. As per the ER, no increasing intraocular pressures. Patient lives at [facility]. Takes aspirin at home. ER physician at conversation with ophthalmology on-call who recommended stroke work-up with MRI scans and MRA of head and neck and echo. Admitting CT head/Brain MRI/neck MRA/brain MRA: With no remarkable acute findings. Admitting EKG, NSR, T wave inversion in anterior leads. Admitting troponin negative. Patient with no chest pain. 09/10 ECHO: EF 65 to 70%, grade 1 diastolic dysfunction, 2 mm mobile structure at the base of the anterior mitral valve leaflet likely calcified chordae. Plavix added at admission, neurology agrees -DAPT for 3 weeks followed by Plavix for life, Zio patch monitoring as an outpatient, follow-up neurology as an ou tpatient. Ophthalmology is yet to eval inpatient. Await eval. Continue telemetry, PT/OT #. Other chronic medical conditions: HTN, HLD, GERD, depression and anxiety, asthma moderate persistent, stage III CKD Continue home HCTZ, metoprolol, amlodipine, statin, omeprazole, paroxetine, home inhalers. On as needed hydralazine, blood pressure WNL lately. #. DVT prophylaxis: SCDs for now. Patient on DAPT. #. Full code Admission and Anticipated Discharge Date Admission Date: September 09, 2021 Subjective Patient seen and examined at bedside as a follow-up of painless left eye vision loss. Patient was lying in bed, on room air, NAD, no new acute events overnight. Patient reports eating okay. Patient reports good bowel okay. Patient reports improvement in her vision in her left eye. Patient denies any pain or headache or temporal region pain. Patient denies any history of SC or stroke. Patient denies any jaw pain. Patient denies dizziness chest pain or palpitation or belly pain. Physical Exam Physical Exam: ObeseGENERAL: Alert and oriented x3. NAD, on RA. Obese HEENT: No pallor, no icterus. Pupils equal, round and reactive to light. Oral mucosa moist. NECK: No JVD, no neck masses. HEART: S1 and S2 heard. Regular rate and rhythm. No murmur, no gallop. RESPIRATORY SYSTEM: Normal AP diameter. No accessory muscle use. No wheezing, no crackles. ABDOMEN: Soft, bowel sounds present, nontender, no distention. CENTRAL NERVOUS SYSTEM: No facial droop. Speech is clear. Obeys simple commands. Moves extremities. EXTREMITIES: No edema, no erythema seen. Results & Data Results & Data ([facility]) Vital Signs (Past 12 Hours) Vital Signs Temp Pulse Resp BP Pulse Ox 09/10/21 15:50 37.0 C 57 L 18 131/64 96 09/10/21 11:26 36.8 C 57 L 18 138/77 97 09/10/21 09:04 36.7 C 58 L 18 138/74 95 (1) Acute loss of vision Laterality: left Qualified Code(s): H53.132 - Sudden visual loss, left eye
--- NOTE | 2021-09-10 22:32 | Consultation Report ---
OPHTHALMOLOGY CONSULTATION NOTE DATE OF CONSULTATION: 09/10/2021. CHIEF COMPLAINT AND HISTORY OF PRESENT ILLNESS: This is an 86-year-old female who presents for a 2-d ay history of vision changes in the left eye. She has a medical history of hypertension, hyperlipide benjamin, chronic kidney disease stage III, and asthma. She developed sudden onset painless loss of visio n in the left eye. This started yesterday evening around 5:30 p.m. She stated that a "dark curtain" came down over her left eye vision from top to bottom, leaving a small portion of the bottom that sh e could see the floor from. Otherwise, she states that her left eye vision was completely blacked ou t. She had no headache, jaw pain, episcopal pain, or double vision associated with this sudden vision c hange. She did report some mild irritation of the left eye prior to having her visual symptoms devel op. She was concerned and came to the ED at [facility] for further evaluation. She currently fee ls like the dark curtain has improved, but feels the left upper field of vision looks pinkish purple compared to the central and bottom portion of her left eye vision. She also states that when she loo ks at a clock on the wall, it is difficult for her to see the numbers 10 through 2, but can see the o ther numbers normally. Her only ocular history is remarkable for cataract surgery in both eyes. PAST MEDICAL HISTORY: Hypertension, hyperlipidemia, hypothyroidism, hyperparathyroidism, asthma, JESSICA D, depression, anxiety, and mild cognitive impairment. PAST SURGICAL HISTORY: Colonoscopy, ptosis repair, cataract surgery, YAG posterior capsulotomy, sarah st lesion excision. MEDICATIONS: Please see medication list. FAMILY HISTORY: Noncontributory. SOCIAL HISTORY: She lives at the [facility]. ALLERGIES: INCLUDE IVP DYE, NSAIDs, SULFA MEDICATIONS, SERTRALINE, AND PRIMIDONE. PHYSICAL EXAMINATION: Her visual acuity at near with correction is 20/25 in the right eye and 20/20 in the left eye. Her intraocular pressures were 13 in both eyes. Her pupils are both 5 mm and react ed down to 4 mm with no afferent pupillary defect noted in either eye. Her extraocular movements wer e full in both eyes. Her confrontational visual cotto were full in both eyes as well. Her anterior segment exam shows normal lids, lashes, and lacrimal glands bilaterally. Her conjunctivae and scler ae are white and quiet bilaterally. Her corneas appear clear in both eyes. Her iris is round and re active bilaterally. Her anterior chamber is deep and formed bilaterally and her lens in each eye is a PCIOL, status post YAG capsulotomy. Her posterior segment exam shows a cup to disk ratio of 0.2 in both eyes. Her right macula appears normal. Her left macula has questionable whitening in the infe rior portion of the macula as well as a small flat choroidal nevus in the inferotemporal macula. The peripheral retina in both eyes is flat and attached 360 with no hemorrhages. IMAGING DATA: The imaging studies and interpretations were reviewed. Her head CT was negative for a cute hemorrhage or infarct. Her MRI of the brain showed no acute findings. Her MRA of the head and neck showed no carotid stenosis, no dissection, no aneurysm. The internal carotid arteries were woods nt. LABORATORY DATA: These were also reviewed and notable for a slightly elevated C-reactive protein at 0.52 and an erythrocyte sedimentation rate of 34, which is essentially a normal range for her age. ASSESSMENT AND PLAN: This is an 86-year-old female with acute vision loss in the left eye that is im proved since onset. This does seem like some type of arterial occlusion in the left eye that has rep erfused with visual symptoms improving, but still present in the superior portion of her left visual field, although she has no scotoma in that location on confrontational field testing. She has had a significant workup thus far including CT of the head, MRI of the brain, and MRA of the head and neck that do not show any significant stenosis or vascular plaques. Dr. Pimentel from neurology has already seen the patient and made recommendations for dual antiplatelet therapy for the next 3 weeks and the n likely staying on Plavix afterwards. He has also recommended Zio patch monitoring. He will plan t o see her as an outpatient. I will plan to see her next week in the office to recheck her vision and formally check her visual cotto and will do additional retinal imaging. Thank you for the consultation. Job ID: [id number]
[2021-09-11] MEDS: LEVOTHYROXINE SODIUM 50 MCG TABLET PO SCH (06:13)
[2021-09-11 07:47] LABS: Basophils # (auto) 0.02 K/uL (0-0.2); Basophils % (auto) 0.3 %; Eosinophils # (auto) 0.19 K/uL (0-0.5); Eosinophils % (auto) 3.2 %; Hematocrit (blood only) 38.8 % (37-47); Hemoglobin 13.3 g/dL (12.0-16.0); Immature Granulocytes # (auto) 0.01 K/uL (0.00-0.02); Immature Granulocytes % (auto) 0.2 %; Lymphocytes % (auto) 34.1 %; Mean Corpuscular Hemoglobin 30.9 pg (25-34); Mean Corpuscular Hgb Conc 34.3 g/dL (32-36); Mean Corpuscular Volume 90.2 fL (80-100); Mean Platelet Volume 11.2 fL (7.4-10.4); Monocytes # (auto) 0.54 K/uL (0.11-0.59); Monocytes % (auto) 9.2 %; Neutrophils # (auto) 3.11 K/uL (1.4-6.5); Platelet Count 198 K/uL (130-400); RDW Coefficient of Variation 14.6 % (11.5-14.5); RDW Standard Deviation 48.7 fL (36.4-46.3); White Blood Count 5.87 K/uL (4.8-10.8)
[2021-09-11 08:08] LABS: BUN Creatinine Ratio 20.6 (10-20); Creatinine Clr Calc Pharmacy 28.3 ml/min; Est GFR (African American) 43.2 ml/min; Est GFR (Non-African American) 37.3 ml/min
[2021-09-11] MEDS: ATORVASTATIN 20 MG TAB PO SCH (08:47)
[2021-09-11] MEDS: amLODIPine BESYLATE 5 MG TAB PO SCH (08:47)
[2021-09-11] MEDS: CHOLECALCIFEROL 1,000 UNITS 25 MCG TAB PO SCH (08:47)
[2021-09-11] MEDS: busPIRone 5 MG TAB PO SCH (08:47)
[2021-09-11] MEDS: ASPIRIN 81 MG ECTAB PO SCH (08:47)
[2021-09-11] MEDS: UMECLIDINIUM/VILANTEROL 62.5/25MCG 7 PUFFS/INHALER INH SCH (08:48)
[2021-09-11] MEDS: METOPROLOL SUCC 50MG EXT REL TAB PO SCH (08:48)
[2021-09-11] MEDS: FLUTICASONE FUROATE 100MCG 14 PUFFS/INHALER INH SCH (08:48)
[2021-09-11] MEDS: MUPIROCIN 2% OINT 22 GM TUBE TOP SCH (08:48)
[2021-09-11] MEDS: FLUTICASONE PROPIONATE NA SPR 16 GM BTL SCH (08:48)
[2021-09-11] MEDS: PANTOprazole 40 MG TAB PO SCH (08:48)
[2021-09-11] MEDS: PARoxetine HCL 20 MG TAB PO SCH (08:48)
[2021-09-11] MEDS: CLOPIDOGREL BISULFATE 75 MG TAB PO SCH (08:48)
[2021-09-11] MEDS: FAMOTIDINE 20 MG TAB PO SCH (08:48)
[2021-09-11] MEDS: hydroCHLOROthiazide 25 MG TAB PO SCH (08:48)
[2021-09-11] MEDS ORDERED: STROKE PATIENT DISCHARGE STA (14:02)
--- NOTE | 2021-09-11 14:06 | Discharge Summary ---
Date of Service September 11, 2021 Admission HPI Per Admitting Provider DATE OF ADMISSION: 09/09/2021. CHIEF COMPLAINT: Left eye vision loss. HISTORY OF PRESENT ILLNESS: An 86-year-old female with past medical history significant for hypothyroidism, hyperlipidemia, secondary hyperparathyroidism, asthma, diaphragmatic hernia, hypertension, chronic kidney disease stage III, GERD, osteoporosis, degenerative cervical disk disease, essential tremor, mild cognitive impairment with memory loss, depression, generalized anxiety, presents with left eye vision loss. The patient states around 5-530 p.m., she had left eye vision loss. She just could see the floor from that eye. Denies any headache or dizziness. Currently, when I am examining, the vision has slowly improved. She can see up to the half of the eye only, the top vision is blurred and even cloudiness is improved. Denies any headache, no neck pain, She recently had earache and dizziness but that resolved now. No runny nose, no sore throat, no cough, no fevers, no chest pain. Once in a while she gets short of breath. No nausea, no vomiting. Appetite is good. No difficulty swallowing. Normal bowel and bladder movements. No swelling in the legs. Ambulates okay. Blood pressure is running high today. She says lately her blood pressure somewhat running high. ALLERGIES: IODINATED CONTRAST MEDIA, NSAID'S, PRIMIDONE, SERTRALINE, SULFA ANTIBIOTICS. PAST MEDICAL HISTORY: As mentioned above. PAST SURGICAL HISTORY: Breast lesion excision, colonoscopy, colonoscopy with biopsy, repair of the drooping eyebrow bilaterally.. MEDICATIONS: The patient is on amlodipine 2.5 mg p.o. daily, atorvastatin 20 mg p.o. daily, buspirone 5 mg p.o. b.i.d., vitamin D 2000 International Units p.o. daily, famotidine 20 mg p.o. daily, Breo Ellipta one inhalation daily, Flonase 2 sprays intranasal daily, hydrochlorothiazide 12.5 mg p.o. daily, levothyroxine 50 mcg p.o. daily, meclizine 12.5 mg p.o. t.i.d. p.r.n., metoprolol succinate 50 mg p.o. daily, mupirocin ointment topical b.i.d., omeprazole 40 mg p.o. daily, paroxetine 20 mg p.o. daily. FAMILY HISTORY: Significant for mother has arthritis, asthma, hypertension; father has familial tremor, skin cancer and diabetes, pacemaker, hypertension. Daughter has obesity. SOCIAL HISTORY: . No smoking. Alcohol occasional. No drug use. Admission Exam Per Admitting Provider GENERAL: The patient is obese, not in acute distress. VITAL SIGNS: Temperature 36.8, pulse 64, respiratory rate 18, blood pressure 213/71, oxygen 96% on room air. HEENT: Atraumatic. Extraocular muscles intact. Superficial vision in the left eye is affected. NECK: No JVD. No masses. CARDIOVASCULAR: S1 and S2 heard. Regular rate and rhythm. No murmur, no gallop. RESPIRATORY SYSTEM: Normal AP diameter. No accessory muscle use. No wheezing, no crackles. ABDOMEN: Soft. Bowel sounds are present, nontender, no distention. CENTRAL NERVOUS SYSTEM: Alert and oriented. Speech is clear. No facial droop. External ocular muscles intact. Left eye vision is impaired. Power 5/5 in all extremities. No pronator drift. Coordination of movements normal. Sensation is intact. Position sense intact. EXTREMITIES: No edema, no erythema. Principal Diagnosis Painless left eye vision loss, likely CRAO Discharge Exam ObeseGENERAL: Alert and oriented x3. NAD, on RA. Obese HEENT: No pallor, no icterus. Pupils equal, round and reactive to light. Oral mucosa moist. NECK: No JVD, no neck masses. HEART: S1 and S2 heard. Regular rate and rhythm. No murmur, no gallop. RESPIRATORY SYSTEM: Normal AP diameter. No accessory muscle use. No wheezing, no crackles. ABDOMEN: Soft, bowel sounds present, nontender, no distention. CENTRAL NERVOUS SYSTEM: No facial droop. Speech is clear. Obeys simple commands. Moves extremities. EXTREMITIES: No edema, no erythema seen. Discharge Data Allergies Allergy/AdvReac Type Severity Reaction Status Date / Time Iodinated Contrast Media Allergy Unknown IVP DYE Verified 09/09/21 19:58 ALLERGY NSAIDS (Non-Steroidal Allergy Unknown UNKNOWN Verified 09/09/21 19:58 Anti-Inflamma primidone Allergy Unknown UNKNOWN Verified 09/09/21 19:58 sertraline Allergy Unknown UNKNOWN Verified 09/09/21 19:58 Sulfa (Sulfonamide Allergy Unknown "SULFA" Verified 09/09/21 19:58 Antibiotics) ALLERGY Consultations 09/09/21 22:15 ED Decision to Admit Stat 09/10/21 08:00 Consult Neurology Routine Consult Ophthalmology Routine Ordered Studies 09/09/21 19:11 CT head/brain wo con Stat 09/10/21 01:48 MR brain wo/w con Urgent 09/10/21 02:21 MR angio neck wo/w con Urgent 09/10/21 02:23 MR angio head wo con Urgent Hospital Course (1) Acute loss of vision: 86-year-old female with past medical history of significant for hypothyroidism, hyperlipidemia, secondary hyperparathyroidism, asthma, diaphragmatic hernia, hypertension, chronic kidney disease stage III, GERD, osteoporosis, degenerative cervical disk disease, essential tremor, mild c ognitive impairment with memory loss, depression, generalized anxiety, presented 09/09 to ED with left eye vision loss. The patient states around 5-530 p.m. on the day of arrival, she had painless left eye vision loss. She just could see the floor from that eye. Denies any headache or dizziness. She was managed for the followin. Painless left eye vision loss: Likely CRAO Patient presents with painless left eye vision loss around 5 to 5:30 PM on the day of arrival. Already improving by the time she arrived at ER. As per the ER, no increasing intraocular pressures. Patient lives at [facility]. Takes aspirin at home. ER physician at conversation with ophthalmology on-call who recommended stroke work-up with MRI scans and MRA of head and neck and echo. Admitting CT head/Brain MRI/neck MRA/brain MRA: With no remarkable acute findings. Admitting EKG, NSR, T wave inversion in anterior leads. Admitting troponin negative. Patient with no chest pain. 09/10 ECHO: EF 65 to 70%, grade 1 diastolic dysfunction, 2 mm mobile structure at the base of the anterior mitral valve leaflet likely calcified chordae. Plavix added at admission, neurology agrees -DAPT for 3 weeks followed by Plavix for life, Zio patch monitoring as an outpatient, follow-up neurology as an outpatient. Ophthalmology evaluated, will f/u as OP for further eval. Continue telemetry, PT/OT #. Other chronic medical conditions: HTN, HLD, GERD, depression and anxiety, asthma moderate persistent, stage III CKD Continue home HCTZ, metoprolol, amlodipine, statin, omeprazole, paroxetine, home inhalers. BP fairly controlled. #. DVT prophylaxis: SCDs for now. Patient on DAPT. #. Full code Pt being discharged w/ following instruction at the point of discharge: Follow-up with your primary care physician within a week time. Follow-up with neurology as an outpatient after your eye doctor has evaluated you. Follow-up with your eye doctor as an outpatient in 1 week upon discharge. Neurology evaluated you while inpatient, you will be on aspirin and Plavix for total of 21 days (from 09/10/2021) followed by Plavix for life. Avoid omeprazole while on Plavix. Pantoprazole prescribed instead. Contact your primary care office for outpatient Zio patch monitoring as recommended by neurology. Get your blood work CMP done in 3 days upon discharge and have the results forwarded to your primary care physician. Your creatinine was minimally elevated on the day of discharge, continue to hold your hydrochlorothiazide tablets until seen by your primary care physician within a week time upon discharge. Take your medications as prescribed. Total Time Total Time Spent Total Time Spent (In Minutes): 35 Discharge Plan Discharge Items Patient Disposition: Home - Self-Care Reason For Visit: EYE PROBLEMS Discharge Diagnosis: Painless left eye vision loss, likely CRAO Activity: Resume your previous activity Non-emergency contact: Primary Care Provider Call non-emergency contact if: you have any medication questions, your symptoms worsen and your temperature is above 101 Follow-up/Referrals: Heather Harper MD [Primary Care Provider] - Diet: Heart Healthy Addtl Attending Provider Instructions: Follow-up with your primary care physician within a week time. Follow-up with neurology as an outpatient after your eye doctor has evaluated you. Follow-up with your eye doctor as an outpatient in 1 week upon discharge. Neurology evaluated you while inpatient, you will be on aspirin and Plavix for total of 21 days (from 09/10/2021) followed by Plavix for life. Avoid omeprazole while on Plavix. Pantoprazole prescribed instead. Contact your primary care office for outpatient Zio patch monitoring as recommended by neurology. Get your blood work CMP done in 3 days upon discharge and have the results forwarded to your primary care physician. Your creatinine was minimally elevated on the day of discharge, continue to hold your hydrochlorothiazide tablets until seen by your primary care physician within a week time upon discharge. Take your medications as prescribed. Pending Studies at Discharge: No Stand-Alone Forms: My [facility], Smoking Cessation Medications and DC Order Prescriptions: New clopidogrel 75 mg Tablet 75 mg PO QAM Qty: 30 RF: 0 aspirin 81 mg Tablet,Delayed Release (Dr/Ec) 81 mg PO QAM 19 Days Qty: 19 RF: 0 pantoprazole 40 mg Tablet,Delayed Release (Dr/Ec) 40 mg PO DAILY Qty: 30 RF: 0 Continued famotidine [Ac[employer] Lead (famotidine)] 20 mg tablet 20 mg PO DAILY Qty: 90 RF: 2 cholecalciferol (vitamin D3) 25 mcg (1,000 unit) capsule 2,000 unit PO DAILY RF: 0 buspirone 5 mg tablet 5 mg PO BID RF: 0 atorvastatin 20 mg tablet 20 mg PO DAILY RF: 0 meclizine 12.5 mg tablet 12.5 mg PO TID PRN (Reason: Dizziness) RF: 0 amlodipine 2.5 mg tablet 2.5 mg PO DAILY Qty: 90 RF: 3 fluticasone propionate 50 mcg/actuation spray,suspension 2 spray intranasal DAILY Qty: 15.8 RF: 2 mupirocin 2 % ointment 1 applic topical BID Qty: 15 RF: 2 Trelegy Ellipta 100-62.5-25 mcg blister with device 1 inh inhalation DAILY Qty: 3 RF: 3 paroxetine HCl 20 mg tablet 20 mg PO DAILY RF: 0 levothyroxine [Synthroid] 50 mcg tablet 50 mcg PO DAILYBB RF: 0 metoprolol succinate 50 mg tablet extended release 24 hr 50 mg PO DAILY RF: 0 hydrochlorothiazide 25 mg tablet 12.5 mg PO DAILY RF: 0 Discontinued omeprazole 40 mg capsule,delayed release(DR/EC) 40 mg PO DAILY RF: 0 Discharge Orders: Discharge Order (Routine); Ordered 09/11/21 Ordered By: Manuel Romano/Other Patient Handouts: Prediabetes, 5 Steps for Eating Healthier Admission Data Admit Date/Time: 09/09/21 23:42 Attending Provider: Manuel Morataya Admit Provider: Dajuan Knott Primary Care Provider: Heather Harper Other Providers: Dajuan Knott ; Chante Eid ; Perry Walton Other Interventions: Discharge Summary Assessment (RN) Last Done: 09/11/21 14:00
== END 2021-09-11 15:03 | disposition home or self-care (01) ==
LOC: ED 19:05 → 2S 23:42 → INTOOBSV 23:42 → 2S 09-10 01:44

== ENCOUNTER 2021-09-12 15:05 | Inpatient (IN) ==
--- NOTE | 2021-09-12 16:26 | Emergency Department Note ---
History of Present Illness General Chief complaint: Confusion Stated complaint: GRUPO, CONFUSED Time Seen by Provider: 09/12/21 15:57 History of Present Illness 86-year-old female presents to the ED with a chief complaint of not being able to function. She states that her thoughts seem like they are not connecting. The patient was seen here on the for transient vision loss in her left eye. She was sent home yesterday. This morning she states like her lips felt numb and both of her hands felt numb. This started this morning. She also states that she knew what she wanted to do at times but could not accomplish it. She states that an example of this was when she left her apartment to go downstairs, she took the jar lid where her keys are instead of taking her keys. She denies any focal deficits. No new vision complaints. The patient had unremarkable blood work on the , yesterday.She had a brain MRI on the that showed no acute intracranial findings. MRI of the neck did not show any large vessel vascular stenosis. MR angiogram of the brain did not show acute process. She states that she feels she was discharged too soon. Home Medications Medication Instructions Recorded Confirmed Type cholecalciferol (vitamin D3) 25 2,000 unit PO DAILY cap 05/18/20 09/09/21 History mcg (1,000 unit) capsule amlodipine 2.5 mg tablet 2.5 mg PO DAILY #90 tab 05/27/21 09/09/21 Rx atorvastatin 20 mg tablet 20 mg PO DAILY 06/01/21 09/09/21 History buspirone 5 mg tablet 5 mg PO BID 06/01/21 09/09/21 History meclizine 12.5 mg tablet 12.5 mg PO TID PRN 06/01/21 09/09/21 History famotidine 20 mg tablet (Acid 20 mg PO DAILY #90 tab 06/02/21 09/09/21 Rx Multisensor Intelligence Officer (famotidine)) fluticasone fur. 100 mcg-umeclid 1 inh INHALATION DAILY #3 inhaler 08/11/21 09/09/21 Rx 62.5 mcg-vilant 25 mcg inhalat.powder (Trelegy Ellipta) fluticasone propionate 50 2 spray INTRANASAL DAILY #15.8 g 08/24/21 09/09/21 Rx mcg/actuation nasal spray,suspension mupirocin 2 % topical ointment 1 applic TOPICAL BID #15 g 08/24/21 09/09/21 Rx hydrochlorothiazide 25 mg tablet 12.5 mg PO DAILY 09/09/21 09/09/21 History levothyroxine 50 mcg tablet 50 mcg PO DAILYBB 09/09/21 09/09/21 History (Synthroid) metoprolol succinate 50 mg 50 mg PO DAILY 09/09/21 09/09/21 History tablet,extended release 24 hr paroxetine HCl 20 mg tablet 20 mg PO DAILY 09/09/21 09/09/21 History aspirin 81 mg tablet,delayed 81 mg PO QAM 19 Days #19 tab 09/11/21 Rx release clopidogrel 75 mg tablet 75 mg PO QAM #30 tab 09/11/21 Rx pantoprazole 40 mg tablet,delayed 40 mg PO DAILY #30 tab 09/11/21 Rx release Allergies Allergy/AdvReac Type Severity Reaction Status Date / Time Iodinated Contrast Media Allergy Unknown IV dye Verified 09/12/21 18:46 -hives NSAIDS (Non-Steroidal Allergy Unknown UNKNOWN Verified 09/09/21 19:58 Anti-Inflamma primidone Allergy Unknown UNKNOWN Verified 09/09/21 19:58 sertraline Allergy Unknown UNKNOWN Verified 09/09/21 19:58 Sulfa (Sulfonamide Allergy Unknown "SULFA" Verified 09/09/21 19:58 Antibiotics) ALLERGY Past Med/Surg History Medical History Essential tremor GERD (gastroesophageal reflux disease) Heart block Hypercholesterolemia Osteoporosis Secondary hyperparathyroidism Sensorineural hearing loss of both ears Vitamin D deficiency Surgical History History of breast lump removal Hx of blepharoplasty Hx of repair of rotator cuff Hx of tonsillectomy Family History Father Hypertension Heart disease Mother Hypertension Asthma Other Cancer Diabetes Kidney disease Lung disease No family history of adverse response to anesthesia No family history of bleeding disorder Social History Smoking Status: Never smoker Second Hand Exposure: No; Hx Alcohol Use: Yes Alcohol type: wine Alcohol Intake Frequency Comment: occasional Hx Substance Use: No Preferred Language: Swedish Communication Ability: Effective Coding Specialist Home Health Required: No Beliefs That Will Affect Care: None marital status: / Current Living Situation: Personal Care Facility Current Living Situation Comment: [facility] current occupational status: retired Feels Safe at Home: Yes Assistive Devices: None Review of Systems A total of 10 systems reviewed and were otherwise negative Physical Exam Vital Signs Vital Signs - 24 hr 09/12/21 15:09 09/12/21 16:42 09/12/21 17:00 Temperature 36.9 C Temperature Source Oral Pulse Rate 97 H 71 Respiratory Rate 18 22 Blood Pressure 126/68 Blood Pressure Mean 87 Pulse Oximetry 98 Oxygen Delivery Method Room Air Room Air Sepsis Recent Fever Within 48 Hours No Sepsis New/Unexplained Change in Mental Status No Sepsis Action Taken by Nursing No Action Required 09/12/21 17:01 09/12/21 17:10 09/12/21 17:20 Temperature Temperature Source Pulse Rate 70 69 73 Respiratory Rate 17 14 21 Blood Pressure 162/82 H Blood Pressure Mean 108 Pulse Oximetry Oxygen Delivery Method Sepsis Recent Fever Within 48 Hours Sepsis New/Unexplained Change in Mental Status Sepsis Action Taken by Nursing 09/12/21 17:30 09/12/21 17:31 Temperature Temperature Source Pulse Rate 75 71 Respiratory Rate 24 17 Blood Pressure Blood Pressure Mean 107 Pulse Oximetry Oxygen Delivery Method Sepsis Recent Fever Within 48 Hours Sepsis New/Unexplained Change in Mental Status Sepsis Action Taken by Nursing CONSTITUTIONAL/VITAL SIGNS: Reviewed / noted above. GENERAL: Non-toxic in appearance. INTEGUMENTARY: Warm, dry, and [place]. HEAD: Normocephalic. EYES: without scleral icterus or trauma. ENT/OROPHARYNX: clear and moist. LYMPHADENOPATHY/NECK: Is supple without lymphadenopathy or meningismus. RESPIRATORY: Clear to auscultation bilaterally. No increased work of breathing. CARDIOVASCULAR: Regular rate and rhythm. GI/ABDOMEN: Soft and nontender. No organomegaly or pulsatile mass. EXTREMITIES: Warm and well perfused. BACK: No CVA tenderness. NEUROLOGICAL: Intact without focal deficits. EOMI. No facial droop. No pronator drift. Motor strength is normal symmetric in all 4 extremities. Subjectively the sensation is off in her hands and upper lip. PSYCHIATRIC: normal affect. MUSCULOSKELETAL: Normally developed with good muscle tone. TRIAGE NURSING DOCUMENTATION REVIEWED. Course Administered Medications Discontinued Medications Sodium Chloride (Nss 1000ml) 1,000 mls @ 999 mls/hr IV .Q1H1M SMILEY Stop: 09/12/21 17:30 Last Infusion: 09/12/21 17:48 Dose: 0 mls/hr Documented by: [id number] Admin: 09/12/21 16:44 Dose: 999 mls/hr Documented by: [id number] Medical Decision Making Differential Diagnosis Differential includes acute coronary syndrome, myocardial infarction, CVA, TIA, anemia, infection, pneumonia, UTI, pyelonephritis, poor nutrition, dehydration, electrolyte disturbance,hypoglycemia. Medical Records Attestation: I reviewed the patient's medical records. Home Medications Current Medication List: was personally reviewed by me Laboratory Data Attestation: I reviewed the patient's lab results. Result diagrams: 09/12/21 16:37 09/12/21 16:37 Lab Results 09/12/21 09/12/21 09/12/21 Range/Units 16:37 16:37 17:41 WBC 8.99 (4.8-10.8) K/uL RBC 4.57 (4.2-5.4) M/uL Hgb 14.3 (12.0-16.0) g/dL Hct 41.4 (37-47) % MCV 90.6 (80-100) fL MCH 31.3 (25-34) pg MCHC 34.5 (32-36) g/dL RDW Std Deviation 48.5 H (36.4-46.3) fL RDW Coeff of Lakshmi 14.4 (11.5-14.5) % Plt Count 224 (130-400) K/uL MPV 11.3 H (7.4-10.4) fL Immature Gran % (Auto) 0.2 % Neut % (Auto) 76.6 % Lymph % (Auto) 14.2 % Gray % (Auto) 7.9 % Eos % (Auto) 0.9 % Baso % (Auto) 0.2 % Neut # (Auto) 6.88 H (1.4-6.5) K/uL Lymph # (Auto) 1.28 (1.2-3.4) K/uL Gray # (Auto) 0.71 H (0.11-0.59) K/uL Eos # (Auto) 0.08 (0-0.5) K/uL Baso # (Auto) 0.02 (0-0.2) K/uL Immature Gran # (Auto) 0.02 (0.00-0.02) K/uL Sodium 140 (136-145) mmol/L Potassium 3.7 (3.5-5.1) mmol/L Chloride 105 (98-107) mmol/L Carbon Dioxide 26 (21-32) mmol/L Anion Gap 9 (3-11) BUN 34 H (6-23) mg/dl Creatinine 1.55 H (0.6-1.2) mg/dl Est Cr Clr Drug Dosing Not Reportable Est GFR ( Amer) 35.3 ml/min Est GFR (Non-Af Amer) 30.4 ml/min BUN/Creatinine Ratio 21.9 H (10-20) Glucose 102 H (70-99(Fasting)) mg/dl Calcium 9.4 (8.5-10.1) mg/dl Magnesium 2.1 (1.7-2.4) mg/dl Total Bilirubin 0.7 (0.2-1.0) mg/dl AST 18 (13-39) U/L ALT 15 (7-52) U/L Alkaline Phosphatase 92 (34-104) U/L Total Creatine Kinase 117 (26-192) U/L Troponin I High Sens 25.4 H D (0-14) pg/ml Total Protein 7.1 (6.0-8.3) gm/dl Albumin 4.2 (3.4-5.0) gm/dl Globulin 2.9 (2.5-4.0) gm/dl Albumin/Globulin Ratio 1.4 (0.9-2) Urine Color Yellow Urine Appearance Clear (Clear) Urine pH 5.5 (4.5-7.5) Ur Specific [place] 1.017 (1.000-1.030) Urine Protein Negative (Negative) Urine Glucose (UA) Negative (Negative) Urine Ketones Negative (Negative) Urine Blood Negative (Negative) Urine Nitrite Negative (Negative) Urine Bilirubin Negative (Negative) Urine Urobilinogen Negative (Negative) Ur Leukocyte Esterase Negative (Negative) Imaging Data Radiologist's Impression: Chest X-Ray 09/12/21 16:26 XR chest 1V portable CLINICAL HISTORY: weakness. Evaluate cardiopulmonary status COMPARISON STUDY: 01/20/2021 TECHNIQUE: 1 view of the chest FINDINGS: Single frontal view of the chest demonstrates the cardiomediastinal silhouette to be within normal limits. There is again eventration of the right tg diaphragm anteriorly. The lungs are clear of alveolar opacities. There is no evidence for pleural effusion. There is no evidence for vascular congestion. There is no acute osseous pathology. IMPRESSION: 1. No acute cardiopulmonary disease. ACT 112: Negative or not required by law. Electronically signed by: Rodrigo Villalba M.D. 09/12/2021 5:23 PM ECG Data Attestation: I personally reviewed and interpreted this ECG as follows: Additional Comments: Twelve-lead EKG: Per my interpretation shows a normal sinus rhythm at a rate of 76. Right bundle branch block. No ST elevations. No PVCs. Normal QTC. MDM Narrative 86-year-old female with a chief complaint of some disorganized thoughts not being able to accomplish task correctly at home as she thinks of them. No focal deficits on exam. Vital signs are stable. The patient's laboratory studies show a BUN of 34 and a creatinine of 1.55. This is slightly up from when she was admitted a few days ago. CBC was unremarkable. EKG shows a sinus rhythm at a rate of 76. Troponin is mildly elevated at 25. Chest x-ray was negative for acute disease. Urinalysis did not show infection. The patient was told the results of the test. She would be seen by the hospitalist for further evaluation and care. Impression & Plan Acute confusion, Facial paresthesia, Hand paresthesia Discharge Plan Visit Data Chief Complaint: Confusion Stated Complaint: SHAKY, CONFUSED ED Provider: Tres Bellamy Discharge Problem: Acute confusion, Facial paresthesia, Hand paresthesia Patient Disposition: Being Evaluated by Hospitalist Forms Stand Alone Forms: My [facility] Prescriptions Prescriptions: No Action famotidine [Acid Multisensor Intelligence Officer (famotidine)] 20 mg tablet 20 mg PO DAILY Qty: 90 RF: 2 cholecalciferol (vitamin D3) 25 mcg (1,000 unit) capsule 2,000 unit PO DAILY RF: 0 buspirone 5 mg tablet 5 mg PO BID RF: 0 atorvastatin 20 mg tablet 20 mg PO DAILY RF: 0 meclizine 12.5 mg tablet 12.5 mg PO TID PRN (Reason: Dizziness) RF: 0 amlodipine 2.5 mg tablet 2.5 mg PO DAILY Qty: 90 RF: 3 fluticasone propionate 50 mcg/actuation spray,suspension 2 spray intranasal DAILY Qty: 15.8 RF: 2 mupirocin 2 % ointment 1 applic topical BID Qty: 15 RF: 2 Trelegy Ellipta 100-62.5-25 mcg blister with device 1 inh inhalation DAILY Qty: 3 RF: 3 paroxetine HCl 20 mg tablet 20 mg PO DAILY RF: 0 levothyroxine [Synthroid] 50 mcg tablet 50 mcg PO DAILYBB RF: 0 metoprolol succinate 50 mg tablet extended release 24 hr 50 mg PO DAILY RF: 0 hydrochlorothiazide 25 mg tablet 12.5 mg PO DAILY RF: 0 clopidogrel 75 mg Tablet 75 mg PO QAM Qty: 30 RF: 0 aspirin 81 mg Tablet,Delayed Release (Dr/Ec) 81 mg PO QAM 19 Days Qty: 19 RF: 0 pantoprazole 40 mg Tablet,Delayed Release (Dr/Ec) 40 mg PO DAILY Qty: 30 RF: 0 Referrals Referrals: Heather Harper MD [Primary Care Provider] -
[2021-09-12] MEDS ORDERED: SODIUM CHLORIDE 0.9% 1000ML 1,000 ML IV SCH (16:30)
[2021-09-12 16:52] LABS: Hematocrit (blood only) 41.4 % (37-47); Hemoglobin 14.3 g/dL (12.0-16.0); Mean Corpuscular Hemoglobin 31.3 pg (25-34); Mean Corpuscular Hgb Conc 34.5 g/dL (32-36); Mean Corpuscular Volume 90.6 fL (80-100); Mean Platelet Volume 11.3 fL (7.4-10.4); Platelet Count 224 K/uL (130-400); RDW Coefficient of Variation 14.4 % (11.5-14.5); RDW Standard Deviation 48.5 fL (36.4-46.3); Red Blood Count 4.57 M/uL (4.2-5.4); White Blood Count 8.99 K/uL (4.8-10.8)
[2021-09-12 17:09] LABS: Alanine Aminotransferase 15 U/L (7-52); Albumin Globulin Ratio 1.4 (0.9-2); Albumin Level 4.2 gm/dl (3.4-5.0); Alkaline Phosphatase 92 U/L (34-104); Anion Gap 9 (3-11); Aspartate Aminotransferase 18 U/L (13-39); BUN Creatinine Ratio 21.9 (10-20); Bilirubin,Total 0.7 mg/dl (0.2-1.0); Blood Urea Nitrogen 34 mg/dl (6-23); Calcium 9.4 mg/dl (8.5-10.1); Carbon Dioxide 26 mmol/L (21-32); Chloride 105 mmol/L (98-107); Creatine Kinase 117 U/L (26-192); Est GFR (African American) 35.3 ml/min; Est GFR (Non-African American) 30.4 ml/min; Globulin 2.9 gm/dl (2.5-4.0); Glucose 102 mg/dl (70-99(Fasting)); Magnesium 2.1 mg/dl (1.7-2.4); Potassium 3.7 mmol/L (3.5-5.1); Sodium 140 mmol/L (136-145); Total Protein 7.1 gm/dl (6.0-8.3)
[2021-09-12 17:14] LABS: Troponin I High Sensitivity 25.4 pg/ml (0-14)
[2021-09-12 17:16] LABS: Basophils # (auto) 0.02 K/uL (0-0.2); Basophils % (auto) 0.2 %; Eosinophils # (auto) 0.08 K/uL (0-0.5); Eosinophils % (auto) 0.9 %; Immature Granulocytes # (auto) 0.02 K/uL (0.00-0.02); Immature Granulocytes % (auto) 0.2 %; Lymphocytes # (auto) 1.28 K/uL (1.2-3.4); Lymphocytes % (auto) 14.2 %; Monocytes # (auto) 0.71 K/uL (0.11-0.59); Monocytes % (auto) 7.9 %; Neutrophils # (auto) 6.88 K/uL (1.4-6.5); Neutrophils % (auto) 76.6 %
--- NOTE | 2021-09-12 17:25 | XRay Report ---
XR chest 1V portable CLINICAL HISTORY: weakness. Evaluate cardiopulmonary status COMPARISON STUDY: 01/20/2021 TECHNIQUE: 1 view of the chest FINDINGS: Single frontal view of the chest demonstrates the cardiomediastinal silhouette to be within normal li mits. There is again eventration of the right hemidiaphragm anteriorly. The lungs are clear of alveol ar opacities. There is no evidence for pleural effusion. There is no evidence for vascular congestion . There is no acute osseous pathology. IMPRESSION: 1. No acute cardiopulmonary disease. ACT 112: Negative or not required by law. Electronically signed by: Rodrigo Villalba M.D. 09/12/2021 5:23 PM
--- NOTE | 2021-09-12 18:33 | History & Physical Report ---
Date of Service September 12, 2021 Assessment & Plan (1) Acute confusion: (2) Facial paresthesia: (3) Hand paresthesia: (4) Arterial branch occlusion of retina: (5) JUVENAL (acute kidney injury): (6) CKD (chronic kidney disease), stage III: (7) Hypertension: (8) Depression: (9) Hypothyroidism: (10) DVT prophylaxis: Plan: Recently left yesterday from the hospital and was asymptomatic and independent on ADLs at that time. Woke up this morning with new paresthesias, confusion and ambulatory dysfunction that was concerning to her. This is improved now. Thought to have had CRAO and was put on Plavix/ASA. Was supposed to see ophthalmology in am as outpatient. Extensive workup for stroke in the last couple of days. Possible etiologies include but are not limited to JUVENAL or other metabolic disturbance, new TIA symptoms (less likely as bilateral hands and lebron ateral face is affected). Notably she has no new visual symptoms. She was given IVF in the ER--will repeat BMP in am. CT head repeat is unchanged since 3 days ago. Symptoms have resolved at this point. Monitor overnight on telemetry and consider repeat neurology evaluation in am pending clinical symptoms/progression at that time. Cont current medical therapy since discharge but hold HCTZ in s etting of JUVENAL. DO Thierno History of Present Illness Chief Complaint: feeling off Primary Care Provider: Heather Harper MD 86 yo F recently discharged from the hospital yesterday, reports feeling well when she arrived home to her independent living apartment. She took a shower and was able to speak with family members on the phone with no issues. She reports sleeping and awakening this morning feeling off. She had issues right away after waking up where she wasn't able to function well WRT ADLs. Specifically, she was attempting to call a couple who she goes to [employer]arsanism with, but she couldn't remember how to get a hold of them. She also was off balance and felt bilateral hand numbness and perioral anesthesia that was new. She denied any new vision symptoms, had no headache. She was not able to ambulate independently and her friend had to help her into the car to come to the hospital. She does admit to anxiety to a certain extent, but this was in response to these new symptoms. She was not having difficulty speaking per her friend. She also denies any chest pain, palpitations, abdominal pain, UTI symptoms, or other issues. She did take Plavix, ASA and Protonix this am but none of her other medications. She was feeling different and confused but now her symptoms have improved and she is walking at her baseline and able to swallow. Workup in the ER reveals an elevated creatinine from her baseline. CXR is clear and urinalysis is pending. She did mention having a covid vaccination (4th shot) approx 7 days ago. Allergies Allergy/AdvReac Type Severity Reaction Status Date / Time Iodinated Contrast Media Allergy Unknown IV dye Verified 09/12/21 18:57 -hives NSAIDS (Non-Steroidal Allergy Unknown UNKNOWN Verified 09/12/21 18:57 Anti-Inflamma primidone Allergy Unknown UNKNOWN Verified 09/12/21 18:57 sertraline Allergy Unknown UNKNOWN Verified 09/12/21 18:57 Sulfa (Sulfonamide Allergy Unknown "SULFA" Verified 09/12/21 18:57 Antibiotics) ALLERGY Home Medications Medication Instructions Recorded Confirmed Type cholecalciferol (vitamin D3) 25 2,000 unit PO DAILY cap 05/18/20 09/12/21 History mcg (1,000 unit) capsule amlodipine 2.5 mg tablet 2.5 mg PO DAILY #90 tab 05/27/21 09/12/21 Rx atorvastatin 20 mg tablet 20 mg PO DAILY 06/01/21 09/12/21 History buspirone 5 mg tablet 5 mg PO BID 06/01/21 09/12/21 History meclizine 12.5 mg tablet 12.5 mg PO TID PRN 06/01/21 09/12/21 History famotidine 20 mg tablet (Acid 20 mg PO DAILY #90 tab 06/02/21 09/12/21 Rx Relations Manager (famotidine)) fluticasone fur. 100 mcg-umeclid 1 inh INHALATION DAILY #3 inhaler 08/11/21 09/12/21 Rx 62.5 mcg-vilant 25 mcg inhalat.powder (Trelegy Ellipta) fluticasone propionate 50 2 spray INTRANASAL DAILY #15.8 g 08/24/21 09/12/21 Rx mcg/actuation nasal spray,suspension mupirocin 2 % topical ointment 1 applic TOPICAL BID #15 g 08/24/21 09/12/21 Rx hydrochlorothiazide 25 mg tablet 12.5 mg PO DAILY 09/09/21 09/12/21 History levothyroxine 50 mcg tablet 50 mcg PO DAILYBB 09/09/21 09/12/21 History (Synthroid) metoprolol succinate 50 mg 50 mg PO DAILY 09/09/21 09/12/21 History tablet,extended release 24 hr paroxetine HCl 20 mg tablet 20 mg PO DAILY 09/09/21 09/12/21 History aspirin 81 mg tablet,delayed 81 mg PO QAM 19 Days #19 tab 09/11/21 09/12/21 Rx release clopidogrel 75 mg tablet 75 mg PO QAM #30 tab 09/11/21 09/12/21 Rx pantoprazole 40 mg tablet,delayed 40 mg PO DAILY #30 tab 09/11/21 09/12/21 Rx release Past Med/Surg History Medical History Essential tremor GERD (gastroesophageal reflux disease) Heart block Hypercholesterolemia Osteoporosis Secondary hyperparathyroidism Sensorineural hearing loss of both ears Vitamin D deficiency Surgical History History of breast lump removal Hx of blepharoplasty Hx of repair of rotator cuff Hx of tonsillectomy Family History Father Hypertension Heart disease Mother Hypertension Asthma Other Cancer Diabetes Kidney disease Lung disease No family history of adverse response to anesthesia No family history of bleeding disorder Social History Smoking Status: Never smoker Second Hand Exposure: No; Hx Alcohol Use: Yes Alcohol type: wine Alcohol Intake Frequency Comment: occasional Hx Substance Use: No Preferred Language: [place] Communication Ability: Effective Registrar Museum Required: No Beliefs That Will Affect Care: None marital status: / Current Living Situation: Personal Care Facility Current Living Situation Comment: [facility] current occupational status: retired Feels Safe at Home: Yes Assistive Devices: None Review of Systems Review of Systems: All symptoms were reviewed and negative except as indicated in subjective above. Physical Exam Physical Exam: CONSTITUTIONAL: WNWD, vitals as above, generally well- appearing, NAD EYES: EOMI bilaterally, PERRL, normal conjunctivae, no scleral icterus, ENT: external ear and nose normal, MMM NECK: trachea midline, RESPIRATORY: clear to auscultation bilaterally, no crackles, rales or wheezes, normal respiratory effort CARDIOVASCULAR: regular rate and rhythm, S1 and 2 heard without murmurs, g allops or rubs, no JVD, no peripheral edema, CHEST: inspection of chest was normal GASTROINTESTINAL: soft, nontender, ND, no guarding MUSCULOSKELETAL: strength 5/5 throughout, head is normocephalic and atraumatic SKIN: warm and dry NEUROLOGIC: patellar DTRs 2+ bilat. PERRL, EOMI, no facial palsy, no dysarthria. Touch, pain and proprioception normal. CN 2-12 grossly intact, no sensory deficit, normal cognition, normal speech, +slight resting tremor in right hand that is chronic. Rapid alternating movements intact bilaterally, finger to nose and heel to sullivan tests are negative bilaterally. PSYCHIATRIC: alert cooperative and oriented to person, place and time. Euthymic mood, makes good eye contact, language grossly intact, recent and remote memory grossly intact. Results & Data Results & Data ([facility]) Vital Signs (Past 12 Hours) Vital Signs Temp Pulse Resp BP Pulse Ox 09/12/21 17:31 71 17 09/12/21 17:30 75 24 09/12/21 17:20 73 21 09/12/21 17:10 69 14 09/12/21 17:01 70 17 162/82 H 09/12/21 17:00 71 22 09/12/21 15:09 36.9 C 97 H 18 126/68 98 Laboratory Results Short CBC 09/12/21 Range/Units 16:37 WBC 8.99 (4.8-10.8) K/uL Hgb 14.3 (12.0-16.0) g/dL Hct 41.4 (37-47) % Plt Count 224 (130-400) K/uL BMP 09/12/21 16:37 Sodium 140 Potassium 3.7 Chloride 105 Carbon Dioxide 26 BUN 34 H Creatinine 1.55 H Glucose 102 H Calcium 9.4 Cardiac Enzymes 09/12/21 Range/Units 16:37 Total Creatine Kinase 117 (26-192) U/L Liver Function 09/12/21 Range/Units 16:37 Total Bilirubin 0.7 (0.2-1.0) mg/dl AST 18 (13-39) U/L ALT 15 (7-52) U/L Alkaline Phosphatase 92 (34-104) U/L Albumin 4.2 (3.4-5.0) gm/dl Urine 09/12/21 Range/Units 17:41 Urine Color Yellow Urine Appearance Clear (Clear) Urine pH 5.5 (4.5-7.5) Ur Specific [place] 1.017 (1.000-1.030) Urine Protein Negative (Negative) Urine Glucose (UA) Negative (Negative) Diagnostic Findings Chest X-Ray 09/12/21 16:26 XR chest 1V portable CLINICAL HISTORY: weakness. Evaluate cardiopulmonary status COMPARISON STUDY: 01/20/2021 TECHNIQUE: 1 view of the chest FINDINGS: Single frontal view of the chest demonstrates the cardiomediastinal silhouette to be within normal limits. There is again eventration of the right hemidiaphr agm anteriorly. The lungs are clear of alveolar opacities. There is no evidence for pleural effusion. There is no evidence for vascular congestion. There is no acute osseous pathology. IMPRESSION: 1. No acute cardiopulmonary disease. ACT 112: Negative or not required by law. Electronically signed by: Rodrigo Villalba M.D. 09/12/2021 5:[address] 09/12/21 18:37 CT head/brain wo con CLINICAL HISTORY: transient numbness, confusion COMPARISON STUDY: 09/09/2021 CT DOSE: 537.48 mGy.cm TECHNIQUE: Standard CT of the Brain was performed without IV contrast. A dose lowering technique was utilized adhering to the principles of ALARA. FINDINGS: Extraaxial space: There is no evidence for subdural hematoma. There are no extra-axial fluid collections. Ventricles and cisterns: The ventricles are mildly dilated bilaterally. There is no evidence for midline shift or mass effect. Parenchyma: There is no subarachnoid or intraparenchymal hemorrhage. There is no evidence for an acute infarct or cerebral edema. Greater small vessel There are no gross mass lesions. Osseous structures: There is no evidence for an acute fracture. The visualized p aranasal sinuses are clear. The mastoid air cells are clear bilaterally. Soft tissues: There is no evidence for focal soft tissue swelling. IMPRESSION: 1. No acute intracerebral pathology. 2. Cerebral cortical atrophy and remote small vessel disease. ACT 112: Negative or not required by law. Electronically signed by: Rodrigo Villalba M.D. 09/12/2021 8:02 PM (1) Arterial branch occlusion of retina Laterality: left Qualified Code(s): H34.232 - Retinal artery branch occlusion, left eye
[2021-09-12 18:45] LABS: Appearance Urine Clear (Clear); Bilirubin Urine Negative (Negative); Blood Urine Negative (Negative); Color Urine Yellow; Glucose Urine UA Negative (Negative); Ketones Urine Negative (Negative); Leukocyte Esterase Urine Negative (Negative); Nitrite Urine Negative (Negative); Protein Urine Negative (Negative); Specific Gravity Urine 1.017 (1.000-1.030); Urobilinogen Urine Negative (Negative); pH Urine 5.5 (4.5-7.5)
--- NOTE | 2021-09-12 20:04 | CT Scan Report ---
CT head/brain wo con CLINICAL HISTORY: transient numbness, confusion COMPARISON STUDY: 09/09/2021 CT DOSE: 537.48 mGy.cm TECHNIQUE: Standard CT of the Brain was performed without IV contrast. A dose lowering technique was utilized adhering to the principles of ALARA. FINDINGS: Extraaxial space: There is no evidence for subdural hematoma. There are no extra-axial fluid collecti ons. Ventricles and cisterns: The ventricles are mildly dilated bilaterally. There is no evidence for midl ine shift or mass effect. Parenchyma: There is no subarachnoid or intraparenchymal hemorrhage. There is no evidence for an acut e infarct or cerebral edema. Greater small vessel There are no gross mass lesions. Osseous structures: There is no evidence for an acute fracture. The visualized paranasal sinuses are clear. The mastoid air cells are clear bilaterally. Soft tissues: There is no evidence for focal soft tissue swelling. IMPRESSION: 1. No acute intracerebral pathology. 2. Cerebral cortical atrophy and remote small vessel disease. ACT 112: Negative or not required by law. Electronically signed by: Rodrigo Villalba M.D. 09/12/2021 8:02 PM
[2021-09-12] MEDS ORDERED: ACETAMINOPHEN 325 MG TAB PO PRN (22:11)
[2021-09-12] MEDS ORDERED: POLYETHYLENE (MIRALAX) 17 GM PACK PO PRN (22:11)
[2021-09-13] MEDS: LEVOTHYROXINE SODIUM 50 MCG TABLET PO SCH (05:43)
[2021-09-13 08:24] LABS: Basophils # (auto) 0.01 K/uL (0-0.2); Basophils % (auto) 0.1 %; Eosinophils # (auto) 0.12 K/uL (0-0.5); Eosinophils % (auto) 1.8 %; Hemoglobin 12.8 g/dL (12.0-16.0); Immature Granulocytes # (auto) 0.01 K/uL (0.00-0.02); Immature Granulocytes % (auto) 0.1 %; Lymphocytes # (auto) 2.11 K/uL (1.2-3.4); Lymphocytes % (auto) 30.9 %; Mean Corpuscular Hemoglobin 30.3 pg (25-34); Mean Corpuscular Hgb Conc 33.7 g/dL (32-36); Mean Platelet Volume 10.9 fL (7.4-10.4); Monocytes # (auto) 0.55 K/uL (0.11-0.59); Monocytes % (auto) 8.1 %; Neutrophils # (auto) 4.02 K/uL (1.4-6.5); Platelet Count 210 K/uL (130-400); RDW Coefficient of Variation 14.6 % (11.5-14.5); RDW Standard Deviation 48.4 fL (36.4-46.3); Red Blood Count 4.22 M/uL (4.2-5.4); White Blood Count 6.82 K/uL (4.8-10.8)
[2021-09-13 08:41] LABS: BUN Creatinine Ratio 22.1 (10-20); Calcium 8.6 mg/dl (8.5-10.1); Creatinine Clr Calc Pharmacy 32.4 ml/min; Est GFR (African American) 51.7 ml/min; Est GFR (Non-African American) 44.6 ml/min; Magnesium 2.1 mg/dl (1.7-2.4); Potassium 3.7 mmol/L (3.5-5.1)
[2021-09-13] MEDS ORDERED: NON-FORMULARY MEDICATION (Fluticasone-Umeclidin-Vilanter [Trelegy Ellipta] 100-62.5-25 mcg INH SCH (09:00)
[2021-09-13] MEDS ORDERED: amLODIPine BESYLATE 5 MG TAB PO SCH (09:00)
--- NOTE | 2021-09-13 09:32 | Magnetic Resonance Report ---
MR brain wo con HISTORY: 86 years-old Female ?new stroke like s/s acute strokelike symptoms COMPARISON: Brain MRI 09/10/2021, head CT 09/12/2021 TECHNIQUE: Multiplanar multisequence MRI of the brain was obtained without the use of IV contrast. FINDINGS: Guest Services Officer localizer images demonstrate no gross extracranial abnormality. There is a linear focus of nic ically based restricted diffusion involving the right parietal lobe measuring approximately 5.1 x 1.8 cm which demonstrates increased T2/FLAIR signal, new from 09/10/2021. Unremarkable midline structures . Degenerative changes of the imaged cervical spine. Mild age-related involutional changes. There is no acute intracranial hemorrhage, midline shift, abnormal extra-axial collection, hydrocephalus or in tracranial mass. The study is mildly motion degraded. Moderate T2/FLAIR hyperintense foci are noted t hroughout the white matter. The cerebral venous sinuses and major arterial flow voids appear patent. The mastoid air cells and pa ranasal sinuses are generally clear. The skull and soft tissues are unremarkable. Prior bilateral jag s replacement. IMPRESSION: 1. 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 2. No acute intracranial hemorrhage or midline shift. 3. Mild atrophy with moderate chronic microvascular ischemic disease. ACT 112: Negative or not required by law. The above report was generated using voice recognition software. It may contain grammatical, syntax o r spelling errors. Electronically signed by: Omar Nunez M.D. 09/13/2021 9:30 AM
[2021-09-13] MEDS: FLUTICASONE FUROATE 100MCG 14 PUFFS/INHALER INH SCH (10:54)
[2021-09-13] MEDS: UMECLIDINIUM/VILANTEROL 62.5/25MCG 7 PUFFS/INHALER INH SCH (10:54)
[2021-09-13] MEDS: ATORVASTATIN 20 MG TAB PO SCH (10:56)
[2021-09-13] MEDS: FAMOTIDINE 20 MG TAB PO SCH (10:56)
[2021-09-13] MEDS: CHOLECALCIFEROL 1,000 UNITS 25 MCG TAB PO SCH (10:56)
[2021-09-13] MEDS: METOPROLOL SUCC 50MG EXT REL TAB PO SCH (10:56)
[2021-09-13] MEDS: ASPIRIN 81 MG ECTAB PO SCH (10:56)
[2021-09-13] MEDS: PANTOprazole 40 MG TAB PO SCH (10:56)
[2021-09-13] MEDS: busPIRone 5 MG TAB PO SCH ×2 (10:56→20:09)
[2021-09-13] MEDS: CLOPIDOGREL BISULFATE 75 MG TAB PO SCH (10:56)
[2021-09-13] MEDS: PARoxetine HCL 20 MG TAB PO SCH (10:57)
--- NOTE | 2021-09-13 11:35 | Neurology Consultation ---
Date of Consultation September 13, 2021 Assessment & Plan (1) CVA (cerebral vascular accident): 1. MRI brain- stroke 2. PT/OT speech for discharge needs 3. continue aspirin 81 mg and plavix 75 mg for now- plavix was not active during this event since only started on Monday 4. liberal BP for 24 hours then optimize HTN, HLD, LDL >70 5. ophthalmology as outpatient 6. ZIO as outpatient follow up with neurology is already requested from past admission. Supervising Physician Co-Signing Physician Notes I have seen and discussed above patient with Dr Abisai Pimentel, neurology I know this charming woman from her last admission when she presented on Monday with what we thought was a central retinal artery occlusion with reperfusion of the inferior retinal field on the left and indeed her vision has improved significantly although she still has some odd alteration in her colored vision and some spontaneous probable retinal imaging when she looks at the television with her left eye. 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 She could not have CT studies because of the dye allergy and there was a question still of whether she might have shaggy plaque in the aorta or paroxysmal atrial fibrillation as an explanation for her transient monocular visual loss plans were to arrange for an outpatient Zio patch and for her to have ophthalmologic follow-up but her current vascular event has clearly put all this on hold and fortunately she is being monitored here in the hospital At this point I continue to feel that these have been embolic events with an unknown source. In this setting we are not justified in doing anything more than dual antiplatelet therapy and within the next day or 2 the full effect of the Plavix should be maximum I do not have enough clinical suspicion to recommend starting an novel anticoagulant in this setting without actual documentation of paroxysmal atrial fibrillation and unless we document it here during his hospital stay we will again have to rely on an outpatient monitoring study Neurology recommends therefore continue dual antiplatelet therapy, physical therapy occupational therapy and perhaps a brief stay at a rehabilitation facility We will followed by computer and she already has a follow-up appointment scheduled for our office and an appointment to have a Zio patch placed at that point Abisai Pimentel MD The above note was generated utilizing voice recognition technology and may have spelling errors punctuation errors pronoun usage errors and syntax errors History of Present Illness Reason for Consultation: ? new TIA symptoms Requesting Physician: Hood Jackson MD Attending Physician: Manuel Morataya MD History of Present Illness Luh is an 86 year old female who had a hospitalization 09/09- for painless vision loss in her left eye. She returns after 1 days at home for some issues with ADL. She reports feeling well when she arrived home to her independent living apartment. She took a shower and was able to speak with family members on the phone with no issues. She reports sleeping and awakening this morning feeling off. She had issues right away after waking up where she wasn't able to function well WRT ADLs. She was attempting to call a couple who she goes to adventism with, but she couldn't remember how to get a hold of them. She also was off balance and felt bilateral hand numbness and perioral anesthesia but no new vision changes. She was not able to ambulate independently and her friend had to help her into the car to come to the hospital. She did take Plavix, ASA and Protonix this am but none of her other medications.She was feeling different and confused but now her symptoms have improved and she is walking at her baseline and able to swallow. denies swallowing issues, N, V, new vision changes, new bowel or bladder issues, SOB, CP. Allergies Allergy/AdvReac Type Severity Reaction Status Date / Time Iodinated Contrast Media Allergy Unknown IV dye Verified 09/12/21 18:57 -hives NSAIDS (Non-Steroidal Allergy Unknown UNKNOWN Verified 09/12/21 18:57 Anti-Inflamma primidone Allergy Unknown UNKNOWN Verified 09/12/21 18:57 sertraline Allergy Unknown UNKNOWN Verified 09/12/21 18:57 Sulfa (Sulfonamide Allergy Unknown "SULFA" Verified 09/12/21 18:57 Antibiotics) ALLERGY Home Medications Medication Instructions Recorded Confirmed Type cholecalciferol (vitamin D3) 25 2,000 unit PO DAILY cap 05/18/20 09/12/21 History mcg (1,000 unit) capsule amlodipine 2.5 mg tablet 2.5 mg PO DAILY #90 tab 05/27/21 09/12/21 Rx atorvastatin 20 mg tablet 20 mg PO DAILY 06/01/21 09/12/21 History buspirone 5 mg tablet 5 mg PO BID 06/01/21 09/12/21 History meclizine 12.5 mg tablet 12.5 mg PO TID PRN 06/01/21 09/12/21 History famotidine 20 mg tablet (Acid 20 mg PO DAILY #90 tab 06/02/21 09/12/21 Rx Knitting Machine Mechanic (famotidine)) fluticasone fur. 100 mcg-umeclid 1 inh INHALATION DAILY #3 inhaler 08/11/21 09/12/21 Rx 62.5 mcg-vilant 25 mcg inhalat.powder (Trelegy Ellipta) fluticasone propionate 50 2 spray INTRANASAL DAILY #15.8 g 08/24/21 09/12/21 Rx mcg/actuation nasal spray,suspension mupirocin 2 % topical ointment 1 applic TOPICAL BID #15 g 08/24/21 09/12/21 Rx hydrochlorothiazide 25 mg tablet 12.5 mg PO DAILY 09/09/21 09/12/21 History levothyroxine 50 mcg tablet 50 mcg PO DAILYBB 09/09/21 09/12/21 History (Synthroid) metoprolol succinate 50 mg 50 mg PO DAILY 09/09/21 09/12/21 History tablet,extended release 24 hr paroxetine HCl 20 mg tablet 20 mg PO DAILY 09/09/21 09/12/21 History aspirin 81 mg tablet,delayed 81 mg PO QAM 19 Days #19 tab 09/11/21 09/12/21 Rx release clopidogrel 75 mg tablet 75 mg PO QAM #30 tab 09/11/21 09/12/21 Rx pantoprazole 40 mg tablet,delayed 40 mg PO DAILY #30 tab 09/11/21 09/12/21 Rx release Patient History Medical History Essential tremor GERD (gastroesophageal reflux disease) Heart block Hypercholesterolemia Osteoporosis Secondary hyperparathyroidism Sensorineural hearing loss of both ears Vitamin D deficiency Surgical History History of breast lump removal Hx of blepharoplasty Hx of repair of rotator cuff Hx of tonsillectomy Family History Father Hypertension Heart disease Mother Hypertension Asthma Other Cancer Diabetes Kidney disease Lung disease No family history of adverse response to anesthesia No family history of bleeding disorder Social History Smoking Status: Never smoker Second Hand Exposure: No; Hx Alcohol Use: No Hx Substance Use: No Preferred Language: Occitan Communication Ability: Effective Color Paste Mixer Required: No Beliefs That Will Affect Care: None marital status: / Current Living Situation: Personal Care Facility Current Living Situation Comment: [facility] current occupational status: retired Other Information That Helps Us Care for You: No Feels Safe at Home: Yes Safety Concerns: Feels Safe At This Time Assistive Devices: None Review of Systems Review of Systems: All systems reviewed & are unremarkable except as noted in HPI & below Physical Exam Physical Exam: Physical Exam: Constitutional: appearance nourished, healthy and normal Ears, Nose, Mouth and Throat: mucous membranes moist, no injection and skin normal, eyes normal Cardiovascular: normal S-1 and S-2 and regular rate and rhythm Respiratory: clear to auscultation (CTA) and no rales, ronchi or wheeze Musculoskeletal: no peripheral edema and good distal pulses Skin: no stigmata of neurocutaneous disease noted and normal and intact Eyes: extraocular muscles intact (EOMI) and pupils equal, round and reactive to light (PERRL) NEUROLOGIC EXAMINATION: Mental status: Alert and interactive Oriented to person Speech fluent with no evidence of aphasia Cranial Nerves smile eye brow raise slight flattening of left nasolabial fold Reflexes: Deep tendon reflexes were symmetrical and graded 2/5. down going toes Sensory: intact to cool, light and vibration Coordination: finger to nose intact but left sided neglect Gait/Stance: Posture lying in bed Motor: left pronator drift of out stretched arms with eyes closed. Strength: hand digital strategy manager biceps triceps deltoid right 5/5 left 4+/5, hip flex patellar plantar flex ext 5/5 Results & Data ([facility]) Vital Signs (Past 12 Hours) Vital Signs Temp Pulse Resp BP Pulse Ox 09/13/21 11:13 37.8 C H 72 18 156/60 H 92 09/13/21 07:07 36.7 C 66 20 112/62 94 09/13/21 03:25 36.4 C L 65 16 129/66 96 Laboratory Results Abnormal lab results 09/12/21 09/12/21 09/12/21 Range/Units 16:37 16:37 22:35 RDW Std Deviation 48.5 H (36.4-46.3) fL RDW Coeff of Lakshmi (11.5-14.5) % MPV 11.3 H (7.4-10.4) fL Neut # (Auto) 6.88 H (1.4-6.5) K/uL Bee # (Auto) 0.71 H (0.11-0.59) K/uL BUN 34 H (6-23) mg/dl Creatinine 1.55 H (0.6-1.2) mg/dl BUN/Creatinine Ratio 21.9 H (10-20) Glucose 102 H (70-99(Fasting)) mg/dl Troponin I High Sens 25.4 H D 60.6 H* D (0-14) pg/ml 09/13/21 09/13/21 09/13/21 Range/Units 03:56 08:04 08:04 RDW Std Deviation 48.4 H (36.4-46.3) fL RDW Coeff of Lakshmi 14.6 H (11.5-14.5) % MPV 10.9 H (7.4-10.4) fL Neut # (Auto) (1.4-6.5) K/uL Bee # (Auto) (0.11-0.59) K/uL BUN 25 H (6-23) mg/dl Creatinine (0.6-1.2) mg/dl BUN/Creatinine Ratio 22.1 H (10-20) Glucose 104 H (70-99(Fasting)) mg/dl Troponin I High Sens 40.9 H D (0-14) pg/ml Diagnostic Findings CXR-No acute cardiopulmonary disease. CT head-No acute intracerebral pathology. Cerebral cortical atrophy and remote small vessel disease. MRI brain-Acute infarct of the right parietal lobe measures up to approximately 5.1 cm. No acute intracranial hemorrhage or midline shift. . Mild atrophy with moderate chronic microvascular ischemic disease.
--- NOTE | 2021-09-13 13:39 | Electrocardiogram Report ---
Test Reason : Blood Pressure : / mmHG Vent. Rate : 076 BPM Atrial Rate : 076 BPM P-R Int : 196 ms QRS Dur : 132 ms QT Int : 444 ms P-R-T Axes : 057 083 002 degrees QTc Int : 499 ms Normal sinus rhythm Right bundle branch block Abnormal ECG When compared with ECG of 09-SEP-2021 19:14, No significant change was found Confirmed by Brandon Sena ([id number]) on 09/13/2021 1:38:59 PM Referred By: REFERRED SELF Confirmed By:Brandon Sena
--- NOTE | 2021-09-13 14:13 | Electrocardiogram Report ---
Test Reason : Blood Pressure : / mmHG Vent. Rate : 071 BPM Atrial Rate : 071 BPM P-R Int : 238 ms QRS Dur : 128 ms QT Int : 470 ms P-R-T Axes : 060 080 -02 degrees QTc Int : 510 ms Sinus rhythm with 1st degree A-V block Right bundle branch block Abnormal ECG When compared with ECG of 12-SEP-2021 16:42, (unconfirmed) IN interval has increased Confirmed by Brandon Sena ([id number]) on 09/13/2021 2:13:04 PM Referred By: REFERRED SELF Confirmed By:Brandon Sena
--- NOTE | 2021-09-13 14:30 | Hospitalist Progress Note ---
Date of Service September 13, 2021 Assessment & Plan (1) Acute confusion: (2) Facial paresthesia: (3) Hand paresthesia: (4) Arterial branch occlusion of retina: (5) JUVENAL (acute kidney injury): (6) CKD (chronic kidney disease), stage III: (7) Hypertension: (8) Depression: (9) Hypothyroidism: (10) DVT prophylaxis: Plan: 86-year-old female with PMH of recent CRAO (In hosp 09/09 - 09/11/ for stroke w/u), hypothyroidism, hyperlipidemia, secondary hyperparathyroidism, asthma, diaphragmatic hernia, hypertension, chronic kidney disease stage III, GERD, osteoporosis, degenerative cervical disk disease, essential tremor, mild cognitive impairment with memory loss, depression, generalized anxiety, presented 09/12 to ED w/ c/o not being able to function/numb lips/numb hands x both since AM of 09/12. Denied any focal weakness or new vision complaints. 1. Recent Painless left eye vision loss: Likely CRAO [admitted 09/09-09/11 for stroke work-up], no new complain this admission 1. Acute Stroke Patient was discharged on 09/11 after negative stroke work-up [admitting CT head/brain MRI/neck MRA/brain MRA/echo].--> DC recs were DAPT for 21 days from 09/10/2021 followed by Plavix for life. Avoid omeprazole. Outpatient Zio patch monitoring. Follow-up with PCP/neurologist/eye doctor. Patient presents 09/12 with new complaints [see above] 09/10 ECHO: EF 65 to 70%, grade 1 diastolic dysfunction, 2 mm mobile structure at the base of the anterior mitral valve leaflet likely calcified chordae. 09/10 MRI brain: No acute findings. Admitting EKG with NSR, no acute changes noted. Patient with no chest pain. Admitting troponin elevated likely secondary to JUVENAL. 09/12 CT head: No acute findings 09/13 MRI brain: Acute infarct of the right parietal lobe 5.1 cm, no midline shift/intracranial hemorrhage. Continue med telemetry. Continue permissive hypertension. Hold antihypertensives. Neurology on board, appreciate recommendation. PT/OT, CM to assist with DC planning. #. JUVENAL over CKD stage III BUN and creatinine elevated at 34 and 1.55 at presentation, status post IV fluid, resolved. Monitor BMP as needed. #. Other chronic medical conditions:HTN, HLD, GERD, depression and anxiety, asthma moderate persistent, stage III CKD Continue home meds as able, hold antihypertensives. [See above] #. DVT prophylaxis: SCDs for now. Patient on DAPT. #. Full code Admission and Anticipated Discharge Date Admission Date: September 12, 2021 Subjective Patient seen and examined at bedside as a follow-up of acute stroke. Patient was lying in bed, on room air, NAD, no new acute events overnight. Patient reports improvement of her complaints that she came in with, improvement of facial numbness and bilateral hand numbness. Patient denies any headache/dizziness/chest pain/palpitation/other review of symptoms. Telemetry reviewed, sinus rhythm noted. Patient reports eating okay. Physical Exam Physical Exam: GENERAL: Alert and oriented x3. NAD, on RA. Obese HEENT: No pallor, no icterus. Pupils equal, round and reactive to light. Oral mucosa moist. NECK: No JVD, no neck masses. HEART: S1 and S2 heard. Regular rate and rhythm. No murmur, no gallop. RESPIRATORY SYSTEM: Normal AP diameter. No accessory muscle use. No wheezing, no crackles. ABDOMEN: Soft, bowel sounds present, nontender, no distention. CENTRAL NERVOUS SYSTEM: No facial droop. Speech is clear. Obeys simple commands. Moves extremities. EXTREMITIES: No edema, no erythema seen. Results & Data Results & Data ([facility]) Vital Signs (Past 12 Hours) Vital Signs Temp Pulse Pulse Resp BP Pulse Ox 09/13/21 11:13 37.8 C H 72 18 156/60 H 92 09/13/21 08:00 66 09/13/21 07:07 36.7 C 66 20 112/62 94 09/13/21 03:25 36.4 C L 65 16 129/66 96 (1) Arterial branch occlusion of retina Laterality: left Qualified Code(s): H34.232 - Retinal artery branch occlusion, left eye
[2021-09-14] MEDS: LEVOTHYROXINE SODIUM 50 MCG TABLET PO SCH (05:44)
[2021-09-14 06:04] LABS: Hematocrit (blood only) 37.4 % (37-47); Hemoglobin 12.3 g/dL (12.0-16.0); Mean Corpuscular Hemoglobin 29.4 pg (25-34); Mean Corpuscular Hgb Conc 32.9 g/dL (32-36); Mean Corpuscular Volume 89.5 fL (80-100); Mean Platelet Volume 10.8 fL (7.4-10.4); Platelet Count 201 K/uL (130-400); RDW Coefficient of Variation 14.6 % (11.5-14.5); RDW Standard Deviation 47.9 fL (36.4-46.3); Red Blood Count 4.18 M/uL (4.2-5.4); White Blood Count 6.68 K/uL (4.8-10.8)
[2021-09-14 06:16] LABS: BUN Creatinine Ratio 21.5 (10-20); Calcium 8.5 mg/dl (8.5-10.1); Creatinine Clr Calc Pharmacy 30.2 ml/min; Est GFR (African American) 47.6 ml/min; Est GFR (Non-African American) 41.1 ml/min; Phosphorus 2.7 mg/dl (2.5-4.9); Potassium 3.7 mmol/L (3.5-5.1)
[2021-09-14] MEDS: busPIRone 5 MG TAB PO SCH (07:27)
[2021-09-14] MEDS: PANTOprazole 40 MG TAB PO SCH (07:27)
[2021-09-14] MEDS: CLOPIDOGREL BISULFATE 75 MG TAB PO SCH (07:27)
[2021-09-14] MEDS: FAMOTIDINE 20 MG TAB PO SCH (07:27)
[2021-09-14] MEDS: CHOLECALCIFEROL 1,000 UNITS 25 MCG TAB PO SCH (07:28)
[2021-09-14] MEDS: ASPIRIN 81 MG ECTAB PO SCH (07:28)
[2021-09-14] MEDS: PARoxetine HCL 20 MG TAB PO SCH (07:28)
[2021-09-14] MEDS: FLUTICASONE FUROATE 100MCG 14 PUFFS/INHALER INH SCH (07:29)
[2021-09-14] MEDS: UMECLIDINIUM/VILANTEROL 62.5/25MCG 7 PUFFS/INHALER INH SCH (07:30)
[2021-09-14] MEDS: METOPROLOL SUCC 50MG EXT REL TAB PO SCH (07:33)
[2021-09-14] MEDS: ATORVASTATIN 20 MG TAB PO SCH (08:55)
--- NOTE | 2021-09-14 13:15 | Discharge Summary ---
Date of Service September 14, 2021 Admission HPI Per Admitting Provider 86 yo F recently discharged from the hospital yesterday, reports feeling well when she arrived home to her independent living apartment. She took a shower and was able to speak with family members on the phone with no issues. She reports sleeping and awakening this morning feeling off. She had issues right away after waking up where she wasn't able to function well WRT ADLs. Specifically, she was attempting to call a couple who she goes to [employer] with, but she couldn't remember how to get a hold of them. She also was off balance and felt bilateral hand numbness and perioral anesthesia that was new. She derek ed any new vision symptoms, had no headache. She was not able to ambulate independently and her friend had to help her into the car to come to the hospital. She does admit to anxiety to a certain extent, but this was in response to these new symptoms. She was not having difficulty speaking per her friend. She also denies any chest pain, palpitations, abdominal pain, UTI symptoms, or other issues. She did take Plavix, ASA and Protonix this am but none of her other medications. She was feeling different and confused but now her symptoms have improved and she is walking at her baseline and able to swallow. Workup in the ER reveals an elevated creatinine from her baseline. CXR is clear and urinalysis is pending. She did mention having a covid vaccination (4th shot) approx 7 days ago. Admission Exam Per Admitting Provider CONSTITUTIONAL: WNWD, vitals as above, generally well-appearing, NAD EYES: EOMI bilaterally, PERRL, normal conjunctivae, no scleral icterus, ENT: external ear and nose normal, MMM NECK: trachea midline, RESPIRATORY: clear to auscultation bilaterally, no crackles, rales or wheezes, normal respiratory effort CARDIOVASCULAR: regular rate and rhythm, S1 and 2 heard without murmurs, gallops or rubs, no JVD, no peripheral edema, CHEST: inspection of chest was normal GASTROINTESTINAL: soft, nontender, ND, no guarding MUSCULOSKELETAL: strength 5/5 throughout, head is normocephalic and atraumatic SKIN: warm and dry NEUROLOGIC: patellar DTRs 2+ bilat. PERRL, EOMI, no facial palsy, no dysarthria. Touch, pain and proprioception normal. CN 2-12 grossly intact, no sensory deficit, normal cognition, normal speech, +slight resting tremor in right hand that is chronic. Rapid alternating movements intact bilaterally, finger to nose and heel to sullivan tests are negative bilaterally. PSYCHIATRIC: alert cooperative and oriented to person, place and time. Euthymic mood, makes good eye contact, language grossly intact, recent and remote memory grossly intact. Principal Diagnosis Acute ischemic stroke x right parietal lobe Recent painless left eye vision loss JUVENAL over CKD stage III Discharge Exam GENERAL: Alert and oriented x3. NAD, on RA. Obese HEENT: No pallor, no icterus. Pupils equal, round and reactive to light. Oral mucosa moist. NECK: No JVD, no neck masses. HEART: S1 and S2 heard. Regular rate and rhythm. No murmur, no gallop. RESPIRATORY SYSTEM: Normal AP diameter. No accessory muscle use. No wheezing, no crackles. ABDOMEN: Soft, bowel sounds present, nontender, no distention. CENTRAL NERVOUS SYSTEM: No facial droop. Speech is clear. Obeys simple commands. Moves extremities. No weakness noted. EXTREMITIES: No edema, no erythema seen. Discharge Data Allergies Allergy/AdvReac Type Severity Reaction Status Date / Time Iodinated Contrast Media Allergy Unknown IV dye Verified 09/12/21 18:57 -hives NSAIDS (Non-Steroidal Allergy Unknown UNKNOWN Verified 09/12/21 18:57 Anti-Inflamma primidone Allergy Unknown UNKNOWN Verified 09/12/21 18:57 sertraline Allergy Unknown UNKNOWN Verified 09/12/21 18:57 Sulfa (Sulfonamide Allergy Unknown "SULFA" Verified 09/12/21 18:57 Antibiotics) ALLERGY Consultations 09/12/21 18:29 ED Decision to Admit Stat 09/13/21 07:19 Consult Neurology Routine Ordered Studies 09/12/21 18:37 CT head/brain wo con Urgent 09/13/21 08:25 MR brain wo con Routine Hospital Course (1) Acute confusion: (2) Facial paresthesia: (3) Hand paresthesia: (4) Arterial branch occlusion of retina: (5) JUVENAL (acute kidney injury): (6) CKD (chronic kidney disease), stage III: (7) Hypertension: (8) Depression: (9) Hypothyroidism: (10) DVT prophylaxis: 86-year-old female with PMH of recent CRAO (In hosp 09/09 - 09/11/21 for stroke w/u), hypothyroidism, hyperlipidemia, secondary hyperparathyroidism, asthma, diaphragmatic hernia, hypertension, chronic kidney disease stage III, GERD, osteoporosis, degenerative cervical disk disease, essential tremor, mild cognitive impairment with memory loss, depression, generalized anxiety, presented 09/12 to ED w/ c/o not being able to function/numb lips/numb hands x both since AM of 09/12. Denied any focal weakness or new vision complaints. She was managed for the followin. Recent Painless left eye vision loss: Likely CRAO [admitted 09/09-09/11 for stroke work-up], no new complain this admission 1. Acute Stroke Patient was discharged on 09/11 after negative stroke work-up [admitting CT head/brain MRI/neck MRA/brain MRA/echo].--> DC recs were DAPT for 21 days from 09/10/2021 followed by Plavix for life. Avoid omeprazole. Outpatient Zio patch monitoring. Follow-up with PCP/neurologist/eye doctor. Patient presents 09/12 with new complaints [see above] 09/10 ECHO: EF 65 to 70%, grade 1 diastolic dysfunction, 2 mm mobile structure at the base of the anterior mitral valve leaflet likely calcified chordae. 09/10 MRI brain: No acute findings. Admitting EKG with NSR, no acute changes noted. Patient with no chest pain. Admitting troponin elevated likely secondary to JUVENAL. 09/12 CT head: No acute findings 09/13 MRI brain: Acute infarct of the right parietal lobe 5.1 cm, no midline shift/intracranial hemorrhage. Zio patch monitoring as an outpatient. Discussed with neurology, okay with discharge from their point of view. PT/OT recommending home with home health. Patient without any weakness. Patient reports feeling better. Patient hemodynamically stable. Patient to follow-up with PCP/neurology/ophthalmology as an outpatient. Patient aware. Patient to get blood test CBC and CMP in 3 to 5 days time upon discharge and have the results forwarded to primary care physician. #. JUVENAL over CKD stage III BUN and creatinine elevated at 34 and 1.55 at presentation, improving. Patient to repeat lab as an outpatient in 3 to 5 days, continue to drink enough fluid. Continue to hold hydrochlorothiazide until seen by PCP for 3 to 5 days. #. Other chronic medical conditions:HTN, HLD, GERD, depression and anxiety, asthma moderate persistent, stage III CKD Continue home meds as able, hold antihypertensives. [See above] #. DVT prophylaxis: SCDs for now. Patient on DAPT. #. Full code Patient being discharged home with following instruction at the point of discharge: Follow-up with your primary care physician within a week time. Continue your daily aspirin and Plavix for total of 21 days from 09/10/2021 followed by Plavix for life as prescribed before. Avoid omeprazole. Continue to hold your hydrochlorothiazide for 3 to 5 days until seen by your primary care physician. Get your blood work CBC and CMP done in 3 to 5 days and have the results forwarded to your primary care physician. Follow-up with neurology as an outpatient, also follow-up with neurology office for outpatient Zio patch monitoring for your heart. Follow-up with ophthalmology for your eye exam as an outpatient. Since your heart rate were running borderline low while in hospital, your metoprolol dose will be cut in half upon discharge. Continue further discussion/evaluation with your primary care physician as an outpatient. Continue with home health services for PT/OT needed. If you have any new weakness/numbness, contact emergency immediately. Take your medications as prescribed. Total Time Total Time Spent Total Time Spent (In Minutes): 35 Discharge Plan Discharge Items Patient Disposition: Home - Home Health Services Reason For Visit: CONFUSION Discharge Diagnosis: Acute ischemic stroke x right parietal lobe Recent painless left eye vision loss JUVENAL over CKD stage III Activity: Resume your previous activity Non-emergency contact: Primary Care Provider Call non-emergency contact if: you have any medication questions, your symptoms worsen and your temperature is above 101 Follow-up/Referrals: Heather Harper MD [Primary Care Provider] - (Date & Time 09/22/2021 11:00 AM Provider Heather Harper MD Department Family Practice [facility] ) Chante Mckee PA-C [Physician Line Appliance Assembler] - (Date & Time 10/15/2021 11:20 AM Provider Chante Mckee PA-C Department Neurology [facility] ) Diet: Heart Healthy Addtl Attending Provider Instructions: Follow-up with your primary care physician within a week time. Continue your daily aspirin and Plavix for total of 21 days from 09/10/2021 followed by Plavix for life as prescribed before. Avoid omeprazole. Continue to hold your hydrochlorothiazide for 3 to 5 days until seen by your primary care physician. Get your blood work CBC and CMP done in 3 to 5 days and have the results forwarded to your primary care physician. Follow-up with neurology as an outpatient, also follow-up with neurology office for outpatient Zio patch monitoring for your heart. Follow-up with ophthalmology for your eye exam as an outpatient. Since your heart rate were running borderline low while in hospital, your metoprolol dose will be cut in half upon discharge. Continue further discussion/evaluation with your primary care physician as an outpatient. Continue with home health services for PT/OT needed. If you have any new weakness/numbness, contact emergency immediately. Take your medications as prescribed. Risk Factors for Stroke: You can reduce your chances of stroke by working with your medical provider to adopt a healthy lifestyle. Some specific ways to lower your chance of stroke are: * If you are a smoker, now is the time to stop smoking cigarettes * If you are diabetic, improve the control of your blood sugars * Avoid excessive amounts of alcohol * Control high blood pressure * Lose weight if you are overweight * Be sure to lead an active lifestyle * Eat a healthy diet low in salt, cholesterol and fat You should know about other risk factors for stroke that you are unable to control. These include: * Age 55 years or older * Male gender * Certain racial groups: , or / * Family History of Stroke, Mini stroke or Heart Attack * Sickle Cell Disease Follow Up: It is important for you to keep your follow up appointments with your medical provider. Who to Call and When: Medical Emergencies: Call 911 immediately if you experience any of the following warning signs and symptoms of Stroke: * Sudden numbness or weakness of the face, arm or leg, especially on one side of the body * Sudden confusion, trouble speaking or understanding * Sudden trouble seeing in one or both eyes * Sudden trouble walking, dizziness, loss of balance or coordination * Sudden severe headache with no cause Do not delay calling 911 if you experience any warning signs or symptoms of a stroke. Delay in seeking medical attention may affect what treatments can be given to you. . Pending Studies at Discharge: No Stand-Alone Forms: My [facility] Enbase, Smoking Cessation Medications and DC Order Prescriptions: Continued famotidine [Acid [employer] (famotidine)] 20 mg tablet 20 mg PO DAILY Qty: 90 RF: 2 cholecalciferol (vitamin D3) 25 mcg (1,000 unit) capsule 2,000 unit PO DAILY RF: 0 buspirone 5 mg tablet 5 mg PO BID RF: 0 atorvastatin 20 mg tablet 20 mg PO DAILY RF: 0 meclizine 12.5 mg tablet 12.5 mg PO TID PRN (Reason: Dizziness) RF: 0 amlodipine 2.5 mg tablet 2.5 mg PO DAILY Qty: 90 RF: 3 fluticasone propionate 50 mcg/actuation spray,suspension 2 spray intranasal DAILY Qty: 15.8 RF: 2 mupirocin 2 % ointment 1 applic topical BID Qty: 15 RF: 2 Trelegy Ellipta 100-62.5-25 mcg blister with device 1 inh inhalation DAILY Qty: 3 RF: 3 paroxetine HCl 20 mg tablet 20 mg PO DAILY RF: 0 levothyroxine [Synthroid] 50 mcg tablet 50 mcg PO DAILYBB RF: 0 hydrochlorothiazide 25 mg tablet 12.5 mg PO DAILY RF: 0 clopidogrel 75 mg Tablet 75 mg PO QAM Qty: 30 RF: 0 aspirin 81 mg Tablet,Delayed Release (Dr/Ec) 81 mg PO QAM 19 Days Qty: 19 RF: 0 pantoprazole 40 mg Tablet,Delayed Release (Dr/Ec) 40 mg PO DAILY Qty: 30 RF: 0 Changed metoprolol succinate 50 mg tablet extended release 24 hr 25 mg PO DAILY Qty: 0 RF: 0 Discharge Orders: Discharge Order (Routine); Ordered 09/14/21 Ordered By: Manuel Morataya Admission Data Admit Date/Time: 09/13/21 14:21 Attending Provider: Manuel Morataya Admit Provider: Mahogany Pa Primary Care Provider: Heather Harper Other Providers: Mahogany Pa ; Abisai Pimentel ; [facility],Home Healthcare
== END 2021-09-14 17:10 | disposition home health service (06) | DRG 65 ==
LOC: 2N 15:05 → ED 15:05 → 2N 20:17

== ENCOUNTER 2021-09-15 16:01 | Inpatient (IN) ==
--- NOTE | 2021-09-15 16:49 | Emergency Department Note ---
Impression & Plan Changes in vision, History of recent stroke, Hypertension ED Provider Note Provider: Baldemar Winslow MD DATE OF SERVICE: 09/15/2021 CHIEF COMPLAINT: Visual changes HISTORY OF PRESENT ILLNESS: Patient is a 86-year-old female history of hypothyroidism, hypertension, CKD, GUINEA PIG BREEDER O, and recent stroke presenting today stating that her vision was off when she woke this morning. Patient states she had very difficult time reading things in the left greater than right eye. This has improved with the course of the afternoon. Patient denies falling. She denies headache. Patient denies any numbness or tingling of the lower extremities or difficulty with speech. Patient did try to call her primary doctor's office as well as her neurologist office to establish follow-up. Has not heard back. Patient states has been taking the prescribed aspirin and Plavix but had significant difficulty trying to take her medicines earlier. Staff at the [facility] where she resides was talking about giving her more assistance by her report. REVIEW OF SYSTEMS: A total of 10 review of systems was obtained and negative except as stated above in the HPI. PAST MEDICAL HISTORY: As noted above MEDICATIONS: Reviewed home medication list SOCIAL HISTORY: Lives with ago by herself PHYSICAL EXAM: GENERAL: alert and oriented in no acute distress on stretcher Head: normocephalic and atraumatic EYES: No injection, discharge or icterus. PERRL, EOMI. NECK: Trachea midline. Supple. ENT: Mucous membranes pink and moist. Pharynx without erythema or exudate. LUNGS: Airway patent. No retractions. Breath sounds clear with good air entry bilaterally. HEART: Regular rate and rhythm. No chest wall tenderness ABDOMEN: Soft and non-tender, without guarding or rebound. SKIN: Acyanotic, warm, dry, without rashes EXTREMITIES: Without swelling, tenderness or deformity NEUROLOGICAL: No focal deficits. No aphasia. No facial droop or slurred speech. Normal strength and tone in the extremities. Sensation to gross touch normal. Ambulatory. EK bpm sinus bradycardia with a right bundle branch block. Inferior lateral T wave inversions noted. QTc 473. No acute ST segment elevation. Similar to previous from September 13 of this year. CONTINUOUS CARDIAC MONITORING: was ordered and showed a heart rate of 50s-60s bpm in sinus bradycardia and NSR Patient's laboratory studies and imaging reviewed. Differential includes Infection, dehydration, metabolic abnormality, hypo/hyperglycemia, electrolyte disturbance, anemia, hypoxia, cardiac sources, intracerebral event, toxicologic, neurologic, as well as other pathologies. IMPRESSION/MEDICAL DECISION MAKING: Reviewed patient's recent past 2 encounters and admissions here at the hospital with a transient GUINEA PIG BREEDER O that improved seen by ophthalmology as well as reevaluation for visual changes with findings concerning for a parietal stroke. Continued on dual antiplatelet therapy and discharged yesterday. Patient's able to read text across the room and the wall regarding facility is goals on the first line but the same size text and the second limb below she says she is unable to read. Left greater than right visual symptoms reported. No other facial droop or aphasia noted. No numbness or weakness reported/noted in the extremities. Had recent vessel imaging. Symptoms are improving at this point. Given recent stroke not a candidate for tPA. Basic labs and a CT of the head will be completed look for any possible urgent from ischemic stroke to possible hemorrhagic. Had ESR/CRP was sent last week and this does not seem classic for amaurosis fugax. Blood work here without significant leukocytosis or anemia. Stable renal function electrolytes. Troponin is normal today improved from previous. Again the patient not having chest pain. CT the head per radiology with evolving ischemic infarct in the right parietal lobe without evidence of new infarcts or hemorrhage on the plain CT. Again had recent vessel imaging and do not feel she needs additional at this time especially with hemiplegia or significant symptoms. Vision has improved some. Given her recent evaluation here at the hospital did try to reach out to the neurology team who she has seen 2 days ago discussed the case. In discussion with Dr. Pimentel we bring the patient in for further cardiac monitoring and MRI. He questions if she may have had another stroke. Discussed with the patient is in agreement. DIAGNOSIS: Visual changes, recent stroke DISPOSITION: Hospitalist will evaluate Patient was agreeable with this plan. Past Med/Surg History Medical History Essential tremor GERD (gastroesophageal reflux disease) Heart block Hypercholesterolemia Osteoporosis Secondary hyperparathyroidism Sensorineural hearing loss of both ears Vitamin D deficiency Surgical History History of breast lump removal Hx of blepharoplasty Hx of repair of rotator cuff Hx of tonsillectomy Family History Father Hypertension Heart disease Mother Hypertension Asthma Other Cancer Diabetes Kidney disease Lung disease No family history of adverse response to anesthesia No family history of bleeding disorder Social History Smoking Status: Never smoker Second Hand Exposure: No; Hx Alcohol Use: No Hx Substance Use: No Preferred Language: Azeri Communication Ability: Effective Land Conservation Specialist Required: No Beliefs That Will Affect Care: None marital status: / Current Living Situation: Personal Care Facility Current Living Situation Comment: [facility] current occupational status: retired Feels Safe at Home: Yes Assistive Devices: None Allergies Allergies Allergy/AdvReac Type Severity Reaction Status Date / Time Iodinated Contrast Media Allergy Intermediate IV dye Verified 09/15/21 17:54 -hives NSAIDS (Non-Steroidal Allergy Unknown UNKNOWN Verified 09/15/21 17:54 Anti-Inflamma primidone Allergy Unknown UNKNOWN Verified 09/15/21 17:54 sertraline Allergy Unknown UNKNOWN Verified 09/15/21 17:54 Sulfa (Sulfonamide Allergy Unknown "SULFA" Verified 09/15/21 17:54 Antibiotics) ALLERGY Home Meds Home Medications Medication Instructions Recorded Confirmed cholecalciferol (vitamin D3) 25 2,000 unit PO DAILY cap 05/18/20 09/15/21 mcg (1,000 unit) capsule atorvastatin 20 mg tablet 20 mg PO DAILY 06/01/21 09/15/21 buspirone 5 mg tablet 5 mg PO BID 06/01/21 09/15/21 meclizine 12.5 mg tablet 12.5 mg PO TID PRN 06/01/21 09/15/21 hydrochlorothiazide 25 mg tablet 12.5 mg PO DAILY 09/09/21 09/15/21 levothyroxine 50 mcg tablet 50 mcg PO DAILYBB 09/09/21 09/15/21 (Synthroid) paroxetine HCl 20 mg tablet 20 mg PO DAILY 09/09/21 09/15/21 Previous Rx's Medication Instructions Recorded amlodipine 2.5 mg tablet 2.5 mg PO DAILY #90 tab 05/27/21 famotidine 20 mg tablet (Acid 20 mg PO DAILY #90 tab 06/02/21 Bag Tester (famotidine)) fluticasone fur. 100 mcg-umeclid 1 inh INHALATION DAILY #3 inhaler 08/11/21 62.5 mcg-vilant 25 mcg inhalat.powder (Trelegy Ellipta) fluticasone propionate 50 2 spray INTRANASAL DAILY #15.8 g 08/24/21 mcg/actuation nasal spray,suspension aspirin 81 mg tablet,delayed 81 mg PO QAM 19 Days #19 tab 09/11/21 release clopidogrel 75 mg tablet 75 mg PO QAM #30 tab 09/11/21 pantoprazole 40 mg tablet,delayed 40 mg PO DAILY #30 tab 09/11/21 release metoprolol succinate 50 mg 25 mg PO DAILY #0 tab 09/14/21 tablet,extended release 24 hr Results & Data (ED) Vital Signs Vital Signs - 24 hr 09/15/21 16:05 09/15/21 17:14 Temperature 36.4 C L Temperature Source Oral Pulse Rate 71 Pulse Rhythm Regular Pulse Strength Normal Respiratory Rate 20 16 Respiratory Effort / Characteristics Non-Labored Spontaneous Respiratory Depth Normal Respiratory Pattern Regular Blood Pressure 145/76 H Blood Pressure Mean 99 Blood Pressure Position Sitting Pulse Oximetry 95 95 Oxygen Delivery Method Room Air Sepsis Recent Fever Within 48 Hours No Sepsis New/Unexplained Change in Mental Status No Sepsis Action Taken by Nursing No Action Required Laboratory Data Result diagrams: 09/15/21 16:55 09/15/21 16:55 Lab Results 09/15/21 09/15/21 09/15/21 Range/Units 16:55 16:55 16:55 WBC 7.34 (4.8-10.8) K/uL RBC 4.14 L (4.2-5.4) M/uL Hgb 12.9 (12.0-16.0) g/dL Hct 37.5 (37-47) % MCV 90.6 (80-100) fL MCH 31.2 (25-34) pg MCHC 34.4 (32-36) g/dL RDW Std Deviation 48.3 H (36.4-46.3) fL RDW Coeff of Lakshmi 14.4 (11.5-14.5) % Plt Count 227 (130-400) K/uL MPV 11.1 H (7.4-10.4) fL Immature Gran % (Auto) 0.1 % Neut % (Auto) 66.1 % Lymph % (Auto) 25.2 % Elbert % (Auto) 6.5 % Eos % (Auto) 2.0 % Baso % (Auto) 0.1 % Neut # (Auto) 4.84 (1.4-6.5) K/uL Lymph # (Auto) 1.85 (1.2-3.4) K/uL Elbert # (Auto) 0.48 (0.11-0.59) K/uL Eos # (Auto) 0.15 (0-0.5) K/uL Baso # (Auto) 0.01 (0-0.2) K/uL Immature Gran # (Auto) 0.01 (0.00-0.02) K/uL PT 11.1 (9.0-12.0) Seconds INR 1.0 (0.9-1.1) APTT 26.2 (21.0-31.0) Seconds PTT Ratio 1.0 Sodium 140 (136-145) mmol/L Potassium 3.7 (3.5-5.1) mmol/L Chloride 108 H (98-107) mmol/L Carbon Dioxide 24 (21-32) mmol/L Anion Gap 8 (3-11) BUN 22 (6-23) mg/dl Creatinine 1.11 (0.6-1.2) mg/dl Est Cr Clr Drug Dosing 33.0 ml/min Est GFR ( Amer) 52.8 ml/min Est GFR (Non-Af Amer) 45.6 ml/min BUN/Creatinine Ratio 19.8 (10-20) Glucose 94 (70-99(Fasting)) mg/dl Calcium 9.0 (8.5-10.1) mg/dl Magnesium 2.0 (1.7-2.4) mg/dl Total Bilirubin 0.5 (0.2-1.0) mg/dl AST 19 (13-39) U/L ALT 15 (7-52) U/L Alkaline Phosphatase 92 (34-104) U/L Troponin I High Sens 12.3 D (0-14) pg/ml Total Protein 6.9 (6.0-8.3) gm/dl Albumin 4.0 (3.4-5.0) gm/dl Globulin 2.9 (2.5-4.0) gm/dl Albumin/Globulin Ratio 1.4 (0.9-2) SARS-CoV-2, RNA, NAAT (NEGATIVE) 09/15/21 Range/Units 18:51 WBC (4.8-10.8) K/uL RBC (4.2-5.4) M/uL Hgb (12.0-16.0) g/dL Hct (37-47) % MCV (80-100) fL MCH (25-34) pg MCHC (32-36) g/dL RDW Std Deviation (36.4-46.3) fL RDW Coeff of Lakshmi (11.5-14.5) % Plt Count (130-400) K/uL MPV (7.4-10.4) fL Immature Gran % (Auto) % Neut % (Auto) % Lymph % (Auto) % Elbert % (Auto) % Eos % (Auto) % Baso % (Auto) % Neut # (Auto) (1.4-6.5) K/uL Lymph # (Auto) (1.2-3.4) K/uL Elbert # (Auto) (0.11-0.59) K/uL Eos # (Auto) (0-0.5) K/uL Baso # (Auto) (0-0.2) K/uL Immature Gran # (Auto) (0.00-0.02) K/uL PT (9.0-12.0) Seconds INR (0.9-1.1) APTT (21.0-31.0) Seconds PTT Ratio Sodium (136-145) mmol/L Potassium (3.5-5.1) mmol/L Chloride (98-107) mmol/L Carbon Dioxide (21-32) mmol/L Anion Gap (3-11) BUN (6-23) mg/dl Creatinine (0.6-1.2) mg/dl Est Cr Clr Drug Dosing ml/min Est GFR ( Amer) ml/min Est GFR (Non-Af Amer) ml/min BUN/Creatinine Ratio (10-20) Glucose (70-99(Fasting)) mg/dl Calcium (8.5-10.1) mg/dl Magnesium (1.7-2.4) mg/dl Total Bilirubin (0.2-1.0) mg/dl AST (13-39) U/L ALT (7-52) U/L Alkaline Phosphatase (34-104) U/L Troponin I High Sens (0-14) pg/ml Total Protein (6.0-8.3) gm/dl Albumin (3.4-5.0) gm/dl Globulin (2.5-4.0) gm/dl Albumin/Globulin Ratio (0.9-2) SARS-CoV-2, RNA, NAAT NEGATIVE (NEGATIVE) Administered Medications Lactated Ringer's (Lr) 1,000 mls @ 60 mls/hr IV .[id number] ONE Stop: 09/16/21 12:29 Last Admin: 09/15/21 20:36 Dose: 60 mls/hr Documented by: [id number] Imaging Data Radiologist's Impression: Head CT 09/15/21 16:42 CT head/brain wo con CLINICAL HISTORY: Stroke Like Symptoms . History of transient numbness and confusion. Acute right parietal lobe infarct on MRI COMPARISON STUDY: 09/12/2021 and MRI from 09/13/2021 CT DOSE: 537.48 mGy.cm TECHNIQUE: Standard CT of the Brain was performed without IV contrast. A dose lowering technique was utilized adhering to the principles of ALARA. FINDINGS: There is an evolving ischemic infarct present involving the right parietal lobe in the distribution of the right middle cerebral artery. This corresponds to the finding seen on MRI. There is no evidence for hemorrhage. No new infarcts are identified. Extraaxial space: There is no evidence for subdural hematoma. There are no extra-axial fluid collections. Ventricles and cisterns: The ventricles are mildly dilated bilaterally. There is no evidence for midline shift or mass effect. Parenchyma: There is no subarachnoid or intraparenchymal hemorrhage. There is again no evidence for a new acute infarct or cerebral edema. There is homogeneous attenuation of the brain parenchyma. There are no gross mass lesions. Osseous structures: There is no evidence for an acute fracture. The visualized paranasal sinuses are clear. The mastoid air cells are clear bilaterally. Soft tissues: There is no evidence for focal soft tissue swelling. IMPRESSION: 1. Evolving ischemic infarct involving the right parietal lobe in the distribution of the right middle cerebral artery. 2. No interval hemorrhage or new infarcts are seen. ACT 112: Negative or not required by law. Electronically signed by: Rodrigo Villalba M.D. 09/15/2021 6:14 PM Discharge Plan Visit Data Chief Complaint: Eye Problems Stated Complaint: EYE PROBLEMS, COULDNT SEE ED Provider: Baldemar Winslow Discharge Problem: Changes in vision, History of recent stroke, Hypertension Patient Disposition: Admitted As Inpatient Discharge Instructions Interventions: ED Discharge Assessment Last Done: 09/15/21 21:20
[2021-09-15 17:12] LABS: Basophils # (auto) 0.01 K/uL (0-0.2); Basophils % (auto) 0.1 %; Eosinophils # (auto) 0.15 K/uL (0-0.5); Hematocrit (blood only) 37.5 % (37-47); Hemoglobin 12.9 g/dL (12.0-16.0); Immature Granulocytes # (auto) 0.01 K/uL (0.00-0.02); Immature Granulocytes % (auto) 0.1 %; Lymphocytes # (auto) 1.85 K/uL (1.2-3.4); Lymphocytes % (auto) 25.2 %; Mean Corpuscular Hemoglobin 31.2 pg (25-34); Mean Corpuscular Hgb Conc 34.4 g/dL (32-36); Mean Corpuscular Volume 90.6 fL (80-100); Mean Platelet Volume 11.1 fL (7.4-10.4); Monocytes # (auto) 0.48 K/uL (0.11-0.59); Monocytes % (auto) 6.5 %; Neutrophils # (auto) 4.84 K/uL (1.4-6.5); Neutrophils % (auto) 66.1 %; Platelet Count 227 K/uL (130-400); RDW Coefficient of Variation 14.4 % (11.5-14.5); RDW Standard Deviation 48.3 fL (36.4-46.3); Red Blood Count 4.14 M/uL (4.2-5.4); White Blood Count 7.34 K/uL (4.8-10.8)
[2021-09-15 17:18] LABS: Partial Thromboplastin Time 26.2 Seconds (21.0-31.0); Prothrombin Time 11.1 Seconds (9.0-12.0)
[2021-09-15 17:43] LABS: Albumin Globulin Ratio 1.4 (0.9-2); BUN Creatinine Ratio 19.8 (10-20); Bilirubin,Total 0.5 mg/dl (0.2-1.0); Est GFR (African American) 52.8 ml/min; Est GFR (Non-African American) 45.6 ml/min; Globulin 2.9 gm/dl (2.5-4.0); Potassium 3.7 mmol/L (3.5-5.1); Total Protein 6.9 gm/dl (6.0-8.3); Troponin I High Sensitivity 12.3 pg/ml (0-14)
--- NOTE | 2021-09-15 18:17 | CT Scan Report ---
CT head/brain wo con CLINICAL HISTORY: Stroke Like Symptoms . History of transient numbness and confusion. Acute right par ietal lobe infarct on MRI COMPARISON STUDY: 09/12/2021 and MRI from 09/13/2021 CT DOSE: 537.48 mGy.cm TECHNIQUE: Standard CT of the Brain was performed without IV contrast. A dose lowering technique was utilized adhering to the principles of ALARA. FINDINGS: There is an evolving ischemic infarct present involving the right parietal lobe in the dist ribution of the right middle cerebral artery. This corresponds to the finding seen on MRI. There is n o evidence for hemorrhage. No new infarcts are identified. Extraaxial space: There is no evidence for subdural hematoma. There are no extra-axial fluid collecti ons. Ventricles and cisterns: The ventricles are mildly dilated bilaterally. There is no evidence for midl ine shift or mass effect. Parenchyma: There is no subarachnoid or intraparenchymal hemorrhage. There is again no evidence for a new acute infarct or cerebral edema. There is homogeneous attenuation of the brain parenchyma. There are no gross mass lesions. Osseous structures: There is no evidence for an acute fracture. The visualized paranasal sinuses are clear. The mastoid air cells are clear bilaterally. Soft tissues: There is no evidence for focal soft tissue swelling. IMPRESSION: 1. Evolving ischemic infarct involving the right parietal lobe in the distribution of the right middl e cerebral artery. 2. No interval hemorrhage or new infarcts are seen. ACT 112: Negative or not required by law. Electronically signed by: Rodrigo Villalba M.D. 09/15/2021 6:14 PM
[2021-09-15] MEDS ORDERED: LACTATED RINGER'S 1,000 ML IV ONE (19:50)
--- NOTE | 2021-09-15 20:07 | History & Physical Report ---
Date of Service September 15, 2021 Assessment & Plan (1) TIA (transient ischemic attack): Plan: hx CVA Rule out embolic source HTN, slightly elevated hx nonocclusive CAD as per records hyperlipidemia on statin Rx hypothyroidism, euthyroid as of last year' TSH history tremors Right-sided neck/right upper extremity pain from exertion with recent move to new residence Prediabetes, hemoglobin A1c of 6.1 this month Mild cognitive impairment as per records, patient mentating well during encounter possible functional disability OBS Medical telemetry Neurochecks Continue antiplatelet, statin Rx for secondary stroke prevention Neurology consult Re: TIA (ER provider already in touch with Dr. Pimentel who recommends repeat MRI studies.) Further management pending MRI results and neurology evaluation. PT OT eval DVT prophylaxis. Lovenox subcu Full code Text document was generated using [employer] voice recognition software. It may contain grammatical or spelling errors. Kindly contact undersigned for clarification of any documentation item in question. History of Present Illness Chief Complaint: Vision problems Primary Care Provider: Heather Harper MD History obtained from patient and records. Medical history significant for CVA, nonocclusive CAD as per records, hypertension, hyperlipidemia, CRI (baseline creatinine 1.2), OA, asthma, GERD, hypothyroidism, skin cancer as per records, history tremors, mild cognitive impairment as per records. Recent overnight confinement 2 days ago for acute CVA right parietal lobe presenting as painless vision loss on the left eye. Zio patch monitoring recommended by neurology outpatient. Patient had trouble reading discharge instructions and reading medication labels upon return home as per immigration case worker note. When patient woke up this morning, patient noted blurry vision bilateral left greater than the right. No headache, no chest pain, no SOB. Patient compliant with home medications. Improved vision during wait at the ER. MEDICAL HISTORY: As above. SURGICAL HISTORY: Breast biopsy. Ptosis surgery, blepharoplasty FAMILY HISTORY: hypertension. Heart disease, skin cancer, diabetes, tremors PERSONAL SOCIAL HISTORY: Nonsmoker. 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 Allergies Allergy/AdvReac Type Severity Reaction Status Date / Time Iodinated Contrast Media Allergy Intermediate IV dye Verified 09/15/21 17:54 -hives NSAIDS (Non-Steroidal Allergy Unknown UNKNOWN Verified 09/15/21 17:54 Anti-Inflamma primidone Allergy Unknown UNKNOWN Verified 09/15/21 17:54 sertraline Allergy Unknown UNKNOWN Verified 09/15/21 17:54 Sulfa (Sulfonamide Allergy Unknown "SULFA" Verified 09/15/21 17:54 Antibiotics) ALLERGY Home Medications Medication Instructions Recorded Confirmed Type cholecalciferol (vitamin D3) 25 2,000 unit PO DAILY cap 05/18/20 09/15/21 History mcg (1,000 unit) capsule amlodipine 2.5 mg tablet 2.5 mg PO DAILY #90 tab 05/27/21 09/15/21 Rx atorvastatin 20 mg tablet 20 mg PO DAILY 06/01/21 09/15/21 History buspirone 5 mg tablet 5 mg PO BID 06/01/21 09/15/21 History meclizine 12.5 mg tablet 12.5 mg PO TID PRN 06/01/21 09/15/21 History famotidine 20 mg tablet (Acid 20 mg PO DAILY #90 tab 06/02/21 09/15/21 Rx Coupon And Bond Collection Clerk (famotidine)) fluticasone fur. 100 mcg-umeclid 1 inh INHALATION DAILY #3 inhaler 08/11/21 09/15/21 Rx 62.5 mcg-vilant 25 mcg inhalat.powder (Trelegy Ellipta) fluticasone propionate 50 2 spray INTRANASAL DAILY #15.8 g 08/24/21 09/15/21 Rx mcg/actuation nasal spray,suspension hydrochlorothiazide 25 mg tablet 12.5 mg PO DAILY 09/09/21 09/15/21 History levothyroxine 50 mcg tablet 50 mcg PO DAILYBB 09/09/21 09/15/21 History (Synthroid) paroxetine HCl 20 mg tablet 20 mg PO DAILY 09/09/21 09/15/21 History aspirin 81 mg tablet,delayed 81 mg PO QAM 19 Days #19 tab 09/11/21 09/15/21 Rx release clopidogrel 75 mg tablet 75 mg PO QAM #30 tab 09/11/21 09/15/21 Rx pantoprazole 40 mg tablet,delayed 40 mg PO DAILY #30 tab 09/11/21 09/15/21 Rx release metoprolol succinate 50 mg 25 mg PO DAILY #0 tab 09/14/21 09/15/21 Rx tablet,extended release 24 hr Past Med/Surg History Medical History Essential tremor GERD (gastroesophageal reflux disease) Heart block Hypercholesterolemia Osteoporosis Secondary hyperparathyroidism Sensorineural hearing loss of both ears Vitamin D deficiency Surgical History History of breast lump removal Hx of blepharoplasty Hx of repair of rotator cuff Hx of tonsillectomy Family History Father Hypertension Heart disease Mother Hypertension Asthma Other Cancer Diabetes Kidney disease Lung disease No family history of adverse response to anesthesia No family history of bleeding disorder Social History Smoking Status: Never smoker Second Hand Exposure: No; Hx Alcohol Use: No Hx Substance Use: No Preferred Language: Slovenian Communication Ability: Effective Vendor Management Specialist Required: No Beliefs That Will Affect Care: None marital status: / Current Living Situation: Personal Care Facility Current Living Situation Comment: [facility] current occupational status: retired Other Information That Helps Us Care for You: No Feels Safe at Home: Yes Safety Concerns: Feels Safe At This Time Assistive Devices: Glasses Review of Systems Review of Systems: As per HPI, all other systems reviewed and negative Physical Exam Physical Exam: GENERAL: Comfortable, obese, pleasant, looks younger for stated age, no respiratory distress SKIN: Normal color, warm HEENT: [place]ill palpebral conjunctivae, no ptosis, dry buccal mucosa NECK : Supple, short neck CHEST : CTA, no tenderness HEART : RRR, no obvious murmurs ABDOMEN: Some distention, nontender EXTREMITIES : No LE swelling/tenderness,no other conspicuous deformities noted NEUROLOGIC : Coherent, able to do near/distance reading both eyes without issues, no facial asymmetry, chronic rest tremors, no other gross focality Results & Data Results & Data ([facility]) Vital Signs (Past 12 Hours) Vital Signs Temp Pulse Resp BP Pulse Ox 09/15/21 17:14 16 95 09/15/21 16:05 36.4 C L 71 20 145/76 H 95 Laboratory Results Laboratory Results WBC 7.34 K/uL (4.8-10.8) 09/15/21 16:55 RBC 4.14 M/uL (4.2-5.4) L 09/15/21 16:55 Hgb 12.9 g/dL (12.0-16.0) 09/15/21 16:55 Hct 37.5 % (37-47) 09/15/21 16:55 MCV 90.6 fL (80-100) 09/15/21 16:55 MCH 31.2 pg (25-34) 09/15/21 16:55 MCHC 34.4 g/dL (32-36) 09/15/21 16:55 RDW Std Deviation 48.3 fL (36.4-46.3) H 09/15/21 16:55 RDW Coeff of Lakshmi 14.4 % (11.5-14.5) 09/15/21 16:55 Plt Count 227 K/uL (130-400) 09/15/21 16:55 MPV 11.1 fL (7.4-10.4) H 09/15/21 16:55 Immature Gran % (Auto) 0.1 % 09/15/21 16:55 Neut % (Auto) 66.1 % 09/15/21 16:55 Lymph % (Auto) 25.2 % 09/15/21 16:55 Saunders % (Auto) 6.5 % 09/15/21 16:55 Eos % (Auto) 2.0 % 09/15/21 16:55 Baso % (Auto) 0.1 % 09/15/21 16:55 Neut # (Auto) 4.84 K/uL (1.4-6.5) 09/15/21 16:55 Lymph # (Auto) 1.85 K/uL (1.2-3.4) 09/15/21 16:55 Saunders # (Auto) 0.48 K/uL (0.11-0.59) 09/15/21 16:55 Eos # (Auto) 0.15 K/uL (0-0.5) 09/15/21 16:55 Baso # (Auto) 0.01 K/uL (0-0.2) 09/15/21 16:55 Immature Gran # (Auto) 0.01 K/uL (0.00-0.02) 09/15/21 16:55 PT 11.1 Seconds (9.0-12.0) 09/15/21 16:55 INR 1.0 (0.9-1.1) 09/15/21 16:55 APTT 26.2 Seconds (21.0-31.0) 09/15/21 16:55 PTT Ratio 1.0 09/15/21 16:55 Sodium 140 mmol/L (136-145) 09/15/21 16:55 Potassium 3.7 mmol/L (3.5-5.1) 09/15/21 16:55 Chloride 108 mmol/L (98-107) H 09/15/21 16:55 Carbon Dioxide 24 mmol/L (21-32) 09/15/21 16:55 Anion Gap 8 (3-11) 09/15/21 16:55 BUN 22 mg/dl (6-23) 09/15/21 16:55 Creatinine 1.11 mg/dl (0.6-1.2) 09/15/21 16:55 Est Cr Clr Drug Dosing 33.0 ml/min 09/15/21 16:55 Est GFR ( Amer) 52.8 ml/min 09/15/21 16:55 Est GFR (Non-Af Amer) 45.6 ml/min 09/15/21 16:55 BUN/Creatinine Ratio 19.8 (10-20) 09/15/21 16:55 Glucose 94 mg/dl (70-99(Fasting)) 09/15/21 16:55 Calcium 9.0 mg/dl (8.5-10.1) 09/15/21 16:55 Magnesium 2.0 mg/dl (1.7-2.4) 09/15/21 16:55 Total Bilirubin 0.5 mg/dl (0.2-1.0) 09/15/21 16:55 AST 19 U/L (13-39) 09/15/21 16:55 ALT 15 U/L (7-52) 09/15/21 16:55 Alkaline Phosphatase 92 U/L (34-104) 09/15/21 16:55 Troponin I High Sens 12.3 pg/ml (0-14) D 09/15/21 16:55 Total Protein 6.9 gm/dl (6.0-8.3) 09/15/21 16:55 Albumin 4.0 gm/dl (3.4-5.0) 09/15/21 16:55 Globulin 2.9 gm/dl (2.5-4.0) 09/15/21 16:55 Albumin/Globulin Ratio 1.4 (0.9-2) 09/15/21 16:55 SARS-CoV-2, RNA, NAAT NEGATIVE (NEGATIVE) 09/15/21 18:[address] 09/15/21 16:42 CT head/brain wo con CLINICAL HISTORY: Stroke Like Symptoms . History of transient numbness and confusion. Acute right parietal lobe infarct on MRI COMPARISON STUDY: 09/12/2021 and MRI from 09/13/2021 CT DOSE: 537.48 mGy.cm TECHNIQUE: Standard CT of the Brain was performed without IV contrast. A dose lowering technique was utilized adhering to the principles of ALARA. FINDINGS: There is an evolving ischemic infarct present involving the right parietal lobe in the distribution of the right middle cerebral artery. This corresponds to the finding seen on MRI. There is no evidence for hemorrhage. No new infarcts are identified. Extraaxial space: There is no evidence for subdural hematoma. There are no extra-axial fluid collections. Ventricles and cisterns: The ventricles are mildly dilated bilaterally. There is no evidence for midline shift or mass effect. Parenchyma: There is no subarachnoid or intraparenchymal hemorrhage. There is again no evidence for a new acute infarct or cerebral edema. There is homogeneo us attenuation of the brain parenchyma. There are no gross mass lesions. Osseous structures: There is no evidence for an acute fracture. The visualized paranasal sinuses are clear. The mastoid air cells are clear bilaterally. Soft tissues: There is no evidence for focal soft tissue swelling. IMPRESSION: 1. Evolving ischemic infarct involving the right parietal lobe in the distribution of the right middle cerebral artery. 2. No interval hemorrhage or new infarcts are seen. ACT 112: Negative or not required by law. Electronically signed by: Rodrigo Villalba M.D. 09/15/2021 6:14 PM Diagnostic Findings EKG as per my interpretation rate 55, sinus bradycardia, normal axis, RBBB, T wave abnormality lateral leads
[2021-09-15] MEDS ORDERED: ACETAMINOPHEN 325 MG TAB PO PRN (21:47)
[2021-09-15] MEDS: busPIRone 5 MG TAB PO SCH (23:12)
[2021-09-16] MEDS: LEVOTHYROXINE SODIUM 50 MCG TABLET PO SCH (06:32)
--- NOTE | 2021-09-16 08:06 | Magnetic Resonance Report ---
MRA OF THE INTRACRANIAL CIRCULATION WITHOUT CONTRAST CLINICAL HISTORY: Cerebrovascular accident. COMPARISON STUDY: MRA of the head September 10, 2021. TECHNIQUE: Utilizing a 1.5 Uma magnet and 3-D [id number] technique, unenhanced MRA of the intra cranial circulation was obtained. FINDINGS: The bilateral M1, M2, A1 and A2 segments are patent. No intracranial aneurysm is identified . No central vessel occlusion is present. Posterior circulation is intact. Acute right parietal lobe infarct is noted. However, no associated vessel occlusion is identified on this exam. No dissection w ithin the intracranial vessels. IMPRESSION: 1. No central vessel occlusion. No intracranial aneurysm. 2. Acute right parietal lobe infarct, better depicted on MRI of 09/13/2021. No associated vessel occlu emily identified. ACT 112: Negative or not required by law. Electronically signed by: Adrian Hernandez M.D. 09/16/2021 8:05 AM
--- NOTE | 2021-09-16 08:20 | Magnetic Resonance Report ---
MR brain wo con CLINICAL HISTORY: tia TECHNIQUE: Multiplanar and multisequence MR images of the brain were obtained without intravenous con trast. Comparison: Comparison is made to MRI brain 09/13/2021 FINDINGS: Again noted is right parietal restricted diffusion. There is associated edema. The ventricular system is normal in appearance. No mass or abnormal enhancement is seen. There is no mass effect or midline shift. There is no evidence of acute intraparenchymal hemorrhage. No extra axial fluid collections a re seen. The corpus callosum, pituitary gland, and cerebellar tonsils appear grossly unremarkable. Flow voids of the major intracranial arterial vessels are identified. The imaged portions of the para nasal sinuses, mastoid air cells, and orbits are unremarkable. IMPRESSION: Redemonstration of acute infarct in the right parietal region with associated edema. No significant m ass effect. No hemorrhagic transformation. ACT 112: Negative or not required by law. Electronically signed by: Chi Golden M.D. 09/16/2021 8:18 AM
[2021-09-16 08:42] LABS: Basophils # (auto) 0.01 K/uL (0-0.2); Basophils % (auto) 0.2 %; Eosinophils # (auto) 0.18 K/uL (0-0.5); Eosinophils % (auto) 2.9 %; Hematocrit (blood only) 37.2 % (37-47); Hemoglobin 12.4 g/dL (12.0-16.0); Immature Granulocytes # (auto) 0.01 K/uL (0.00-0.02); Immature Granulocytes % (auto) 0.2 %; Lymphocytes # (auto) 2.28 K/uL (1.2-3.4); Lymphocytes % (auto) 36.7 %; Mean Corpuscular Hemoglobin 29.8 pg (25-34); Mean Corpuscular Hgb Conc 33.3 g/dL (32-36); Mean Corpuscular Volume 89.4 fL (80-100); Mean Platelet Volume 11.1 fL (7.4-10.4); Monocytes # (auto) 0.29 K/uL (0.11-0.59); Monocytes % (auto) 4.7 %; Neutrophils # (auto) 3.45 K/uL (1.4-6.5); Neutrophils % (auto) 55.3 %; Platelet Count 222 K/uL (130-400); RDW Coefficient of Variation 14.5 % (11.5-14.5); RDW Standard Deviation 47.2 fL (36.4-46.3); Red Blood Count 4.16 M/uL (4.2-5.4); White Blood Count 6.22 K/uL (4.8-10.8)
[2021-09-16] MEDS: ATORVASTATIN 20 MG TAB PO SCH (08:48)
[2021-09-16] MEDS: ASPIRIN 81 MG ECTAB PO SCH (08:48)
[2021-09-16] MEDS: busPIRone 5 MG TAB PO SCH ×2 (08:48→21:37)
[2021-09-16] MEDS: ENOXAPARIN INJ 40 MG/0.4 ML SYR SQ SCH (08:49)
[2021-09-16] MEDS: PARoxetine HCL 20 MG TAB PO SCH (08:49)
[2021-09-16] MEDS: CLOPIDOGREL BISULFATE 75 MG TAB PO SCH (08:49)
[2021-09-16] MEDS: FLUTICASONE FUROATE 100MCG 14 PUFFS/INHALER INH SCH (08:50)
[2021-09-16] MEDS: FLUTICASONE PROPIONATE NA SPR 16 GM BTL NAE SCH (08:50)
[2021-09-16] MEDS: FAMOTIDINE 20 MG TAB PO SCH (08:50)
[2021-09-16] MEDS: METOPROLOL SUCC 25MG EXT REL TAB PO SCH (08:51)
[2021-09-16] MEDS: UMECLIDINIUM/VILANTEROL 62.5/25MCG 7 PUFFS/INHALER INH SCH (08:51)
[2021-09-16] MEDS: PANTOprazole 40 MG TAB PO SCH (08:51)
[2021-09-16] MEDS ORDERED: amLODIPine BESYLATE 5 MG TAB PO SCH (09:00)
[2021-09-16 09:04] LABS: BUN Creatinine Ratio 17.5 (10-20); Calcium 8.9 mg/dl (8.5-10.1); Creatinine Clr Calc Pharmacy 37.9 ml/min; Est GFR (African American) 62.2 ml/min; Est GFR (Non-African American) 53.6 ml/min
--- NOTE | 2021-09-16 15:39 | Neurology Consultation ---
Date of Consultation September 16, 2021 Assessment & Plan (1) TIA (transient ischemic attack): 1. MRI brain no acute findings 2. PT/OT for discharge needs 3. will need to see ophthalmology after discharge 4. unclear source of stroke recommend- CT C/A/P with and without contrast for further evaluation of metastatic disease 5. continue plavix 75 mg and aspirin 81 mg daily 6. optimize HTN, HLD, DM LDL <70 continue patients age 9. follow up has already been scheduled for neurology may discharge when medically stable. (2) Changes in vision: Supervising Physician Co-Signing Physician Notes I have seen and discussed above patient with Dr Abisai Pimentel, neurology I know Mrs. Ro from now a third admission within the week for resumptive embolic strokes the first involving her central retinal artery and clinically fo rtunately associated with very few deficits other than the mild superior altitudinal incomplete visual field defect, the second several days later before Plavix and aspirin combination could have been effective involving the right parietal lobe and producing minimal symptoms other than some sensory neglect on the left and a sense of weakness of the left arm and this third event which may or may not have been an actual stroke and was characterized by vague bilateral visual blurring and inability to read preceded the night previously by a kaleidoscopic visual phenomenon involving both visual cotto and of transient nature. By the time she arrived here in the hospital all of her visual symptoms had resolved and she remains back to her baseline with an MRI showing only slight increased edema in the prior right parietal infarction but no areas of new infarction and with a clinical exam is stable again revealing the incomplete superior altitudinal monocular visual field defect on the left, minor clumsiness of the left arm and neglect of sensory stimuli presented on the left side We remain highly suspicious that she is having embolic strokes although not sure this last event was due to that but I think we have to assume that this may have been a TIA and act accordingly I am going to recommend a chest abdomen and pelvis CT scan series with and without contrast to look for an occult malignancy which might be associated with some hypercoagulability and if this is negative and she is doing well discharge her to her place of residence with follow-up in our office for placement of a Zio patch. I see no real value in doing a transesophageal echo as a first echocardiographic study was pretty clearly normal or not significantly abnormal to the point that it would have raised the question of cardiac valvular disease or vegetations We have relayed our recommendations to her attending physician Dr. Pa and will check back by computer tomorrow but at this point I do not think again neurology needs to see her on a regular basis during her current hospital stay unless things would change Dr. Morley will be available however tomorrow on consultation should there be new developments in her case Abisai Pimentel MD The above note was generated utilizing voice recognition technology and may have spelling errors punctuation errors pronoun usage errors and syntax errors History of Present Illness Reason for Consultation: TIA Requesting Physician: Mahogany Pa DO Attending Physician: Mahogany Pa DO History of Present Illness Luh is an 86 year old female who had a hospitalization 09/09- for painless vision loss in her left eye. She returns after 1 days at home for some issues with ADL. She reports feeling well when she arrived home to her independent living apartment. She took a shower and was able to speak with family members on the phone with no issues. She reports sleeping and awakening this morning feeling off. She had issues right away after waking up where she wasn't able to function well WRT ADLs. She was attempting to call a couple who she goes to faith with, but she couldn't remember how to get a hold of them. She also was off balance and felt bilateral hand numbness and perioral anesthesia but no new vision changes. She was not able to ambulate independently and her friend had to help her into the car to come to the hospital. She did take Plavix, ASA and Protonix this am but none of her other medications.She was feeling different and confused but now her symptoms have improved and she is walking at her baseline and able to swallow. she was discharged back to the [facility] after stroke work up. She returns 09/15/21 with complain of vision changes. She tried to call her gyroscope repairer but they never returned her call so she came back to the ED. Currently she thinks her vision has improved but she is still having the neglect to the left. denies swallowing issues, N, V, new vision changes, new bowel or bladder issues, SOB, CP. Allergies Allergy/AdvReac Type Severity Reaction Status Date / Time Iodinated Contrast Media Allergy Intermediate IV dye Verified 09/15/21 17:54 -hives NSAIDS (Non-Steroidal Allergy Unknown UNKNOWN Verified 09/15/21 17:54 Anti-Inflamma primidone Allergy Unknown UNKNOWN Verified 09/15/21 17:54 sertraline Allergy Unknown UNKNOWN Verified 09/15/21 17:54 Sulfa (Sulfonamide Allergy Unknown "SULFA" Verified 09/15/21 17:54 Antibiotics) ALLERGY Home Medications Medication Instructions Recorded Confirmed Type cholecalciferol (vitamin D3) 25 2,000 unit PO DAILY cap 05/18/20 09/15/21 History mcg (1,000 unit) capsule amlodipine 2.5 mg tablet 2.5 mg PO DAILY #90 tab 05/27/21 09/15/21 Rx atorvastatin 20 mg tablet 20 mg PO DAILY 06/01/21 09/15/21 History buspirone 5 mg tablet 5 mg PO BID 06/01/21 09/15/21 History meclizine 12.5 mg tablet 12.5 mg PO TID PRN 06/01/21 09/15/21 History famotidine 20 mg tablet (Acid 20 mg PO DAILY #90 tab 06/02/21 09/15/21 Rx Communications Director (famotidine)) fluticasone fur. 100 mcg-umeclid 1 inh INHALATION DAILY #3 inhaler 08/11/21 09/15/21 Rx 62.5 mcg-vilant 25 mcg inhalat.powder (Trelegy Ellipta) fluticasone propionate 50 2 spray INTRANASAL DAILY #15.8 g 08/24/21 09/15/21 Rx mcg/actuation nasal spray,suspension hydrochlorothiazide 25 mg tablet 12.5 mg PO DAILY 09/09/21 09/15/21 History levothyroxine 50 mcg tablet 50 mcg PO DAILYBB 09/09/21 09/15/21 History (Synthroid) paroxetine HCl 20 mg tablet 20 mg PO DAILY 09/09/21 09/15/21 History aspirin 81 mg tablet,delayed 81 mg PO QAM 19 Days #19 tab 09/11/21 09/15/21 Rx release clopidogrel 75 mg tablet 75 mg PO QAM #30 tab 09/11/21 09/15/21 Rx pantoprazole 40 mg tablet,delayed 40 mg PO DAILY #30 tab 09/11/21 09/15/21 Rx release metoprolol succinate 50 mg 25 mg PO DAILY #0 tab 09/14/21 09/15/21 Rx tablet,extended release 24 hr Patient History Medical History Essential tremor GERD (gastroesophageal reflux disease) Heart block Hypercholesterolemia Osteoporosis Secondary hyperparathyroidism Sensorineural hearing loss of both ears Vitamin D deficiency Surgical History History of breast lump removal Hx of blepharoplasty Hx of repair of rotator cuff Hx of tonsillectomy Family History Father Hypertension Heart disease Mother Hypertension Asthma Other Cancer Diabetes Kidney disease Lung disease No family history of adverse response to anesthesia No family history of bleeding disorder Social History Smoking Status: Never smoker Second Hand Exposure: No; Hx Alcohol Use: No Hx Substance Use: No Preferred Language: Ecuadorean Communication Ability: Effective Service Line Coordinator Required: No Beliefs That Will Affect Care: None marital status: / Current Living Situation: Personal Care Facility Current Living Situation Comment: [facility] current occupational status: retired Other Information That Helps Us Care for You: No Feels Safe at Home: Yes Safety Concerns: Feels Safe At This Time Assistive Devices: Glasses and Wheelchair Review of Systems Review of Systems: All systems reviewed & are unremarkable except as noted in HPI & below Physical Exam Physical Exam: Physical Exam: Constitutional: appearance over nourished, healthy Ears, Nose, Mouth and Throat: mucous membranes moist, no injection and skin normal, eyes normal Cardiovascular: normal S-1 and S-2 and regular rate and rhythm Respiratory: course breath sounds Musculoskeletal: no peripheral edema and good distal pulses Skin: no stigmata of neurocutaneous disease noted and normal and intact Eyes: extraocular muscles intact (EOMI) issue with looking at the clock the left side with right eye close can not see NEUROLOGIC EXAMINATION: Mental status: Alert and interactive Oriented to full date and location Oriented to person Speech fluent with no evidence of aphasia Cranial Nerves slight naso labial fold flattening on the left Sensory: unable to tell if both arms are touched Coordination: finger to nose Gait/Stance: Posture normal. Gait normal: with steady with steps, base, turning, heel and toe walking and tandem gait. 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 hand air conditioning engineer biceps triceps 4+/5 Results & Data ([facility]) Vital Signs (Past 12 Hours) Vital Signs Temp Pulse Pulse Pulse Resp BP Pulse Ox 09/16/21 14:12 62 09/16/21 11:44 36.9 C 56 L 16 150/73 H 96 09/16/21 08:46 61 18 143/74 H 94 09/16/21 06:57 36.9 C 54 L 18 94 09/16/21 06:13 61 Laboratory Results Abnormal lab results 09/15/21 09/15/21 09/16/21 Range/Units 16:55 16:55 08:05 RBC 4.14 L 4.16 L (4.2-5.4) M/uL RDW Std Deviation 48.3 H 47.2 H (36.4-46.3) fL MPV 11.1 H 11.1 H (7.4-10.4) fL Chloride 108 H (98-107) mmol/L 09/16/21 Range/Units 08:05 RBC (4.2-5.4) M/uL RDW Std Deviation (36.4-46.3) fL MPV (7.4-10.4) fL Chloride 110 H (98-107) mmol/L Diagnostic Findings CT head-Evolving ischemic infarct involving the right parietal lobe in the distribution of the right middle cerebral artery. No interval hemorrhage or new infarcts are seen. MRI brain-Redemonstration of acute infarct in the right parietal region with associated edema. No significant mass effect. No hemorrhagic transformation. MRA head-. No central vessel occlusion. No intracranial aneurysm. Acute right parietal lobe infarct, better depicted on MRI of 09/13/2021. No associated vessel occlusion identified.
--- NOTE | 2021-09-16 16:04 | Hospitalist Progress Note ---
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 No evidence of oxxult arrtyhmia on telemetry Cancer screening reviewed in outpatient notes and due for colonoscopy, last performed in 2007. Breast cancer screening up to date There are new pulmonary nodules that may represent malignancy, however, repeat CT recommended first within 3 months These nodules are new from Feb 14. 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 Notably there is no cough and no weight loss or other constitutional symptoms. Cont DAPT and follow-up with Neuro as originally recommended. Awaiting PT/OT and repeat neuro followup with final recs in am. HTN, chronic, controlled. hx nonocclusive CAD as per records hyperlipidemia on statin Rx hypothyroidism, euthyroid as of last year' TSH history tremors Right-sided neck/right upper extremity pain from exertion with recent move to new residence Prediabetes, hemoglobin A1c of 6.1 this month Mild cognitive impairment as per records, patient mentating well during encounter possible functional disability PT OT eval DVT prophylaxis. Lovenox subcu Full code Mahogany Pa DO [facility] Hospitalist Admission and Anticipated Discharge Date Admission Date: September 15, 2021 Subjective This is Ms. Ro's third admission within the week for strokelike symptoms. The first involved her central retinal artery and was associated with few deficits other than a visual field defect. The second episode occurred the day after discharge from the hospital with symptoms including some sensory neglect on the left and sense of weakness in the left arm. There was additional involvement in the right parietal lobe on repeat brain imaging. This third event is not thought to have been an additional stroke and was characterized by bilateral visual blurring and inability to read. Her symptoms have resolved and she is back to her baseline with some residual visual field deficits consistent with the first visit. Neurology has seen her today and is requesting additional scanning to look for an occult malignancy which may be associated with a hypercoagulable state. She has no clear vegetation on MICHAEL MICHAEL. The patient is feeling well and excited about going home tomorrow She denies any pain or numbness or weakness at this point and is ambulating at her baseline. She is tolerating p.o. and is afebrile. Denies any chest pain. CT scans were reviewed with her and include Are also 3 new nodular opacities in the lungs within 3 new nodular opacities in the lungs measuring up to 1.1 cm within the right upper lobe with additional subcentimeter nodular opacities in the left upper and left lower lobes. A 3-month follow-up CT of the chest is recommended. These are new since January 2021. There are also additional bronchiectatic changes consistent with description from most recent pulmonology note in the spring. She continues to follow with pulmonology as outpatient. No specific breathing issues at this time. Her last colonoscopy was in 2007 and was normal. Pathology from random biopsies taken at that time were negative. Her last mammogram was June 2021 and was clear. Review of Systems Review of Systems: All systems reviewed negative except as indicated above. Physical Exam Physical Exam: CONSTITUTIONAL: WNWD, vitals as above, generally well- appearing, NAD EYES: EOMI bilaterally, PERRL, normal conjunctivae, no scleral icterus, ENT: external ear and nose normal, MMM NECK: trachea midline, RESPIRATORY: clear to auscultation bilaterally, no crackles, rales or wheezes, normal respiratory effort CARDIOVASCULAR: regular rate and rhythm, S1 and 2 heard without murmurs, gallops or rubs, no JVD, no peripheral edema, CHEST: inspection of chest was normal GASTROINTESTINAL: soft, nontender, ND, no guarding MUSCULOSKELETAL: strength 5/5 throughout, head is normocephalic and atraumatic SKIN: warm and dry NEUROLOGIC: no facial palsy, no dysarthria. Touch, pain and proprioception normal. CN 2-12 grossly intact, no sensory deficit, normal cognition, normal speech, no gross focal deficits PSYCHIATRIC: alert cooperative and oriented to person, place and time. Euthymic mood, makes good eye contact, language grossly intact, recent and remote memory grossly intact. Results & Data Results & Data ([facility]) Vital Signs (Past 12 Hours) Vital Signs Temp Pulse Pulse Pulse Resp BP Pulse Ox 09/16/21 14:12 62 09/16/21 11:44 36.9 C 56 L 16 150/73 H 96 09/16/21 08:46 61 18 143/74 H 94 09/16/21 06:57 36.9 C 54 L 18 94 09/16/21 06:13 61 Laboratory Results Short CBC 09/15/21 09/16/21 Range/Units 16:55 08:05 WBC 7.34 6.22 (4.8-10.8) K/uL Hgb 12.9 12.4 (12.0-16.0) g/dL Hct 37.5 37.2 (37-47) % Plt Count 227 222 (130-400) K/uL BMP 09/15/21 09/16/21 16:55 08:05 Sodium 140 141 Potassium 3.7 4.0 Chloride 108 H 110 H Carbon Dioxide 24 25 BUN 22 17 Creatinine 1.11 0.97 Glucose 94 97 Calcium 9.0 8.9 Liver Function 09/15/21 Range/Units 16:55 Total Bilirubin 0.5 (0.2-1.0) mg/dl AST 19 (13-39) U/L ALT 15 (7-52) U/L Alkaline Phosphatase 92 (34-104) U/L Albumin 4.0 (3.4-5.0) gm/dl Diagnostic Findings Brain MRI 09/15/21 21:47 MR brain wo con CLINICAL HISTORY: tia TECHNIQUE: Multiplanar and multisequence MR images of the brain were obtained without intravenous contrast. Comparison: Comparison is made to MRI brain 09/13/2021 FINDINGS: Again noted is right parietal restricted diffusion. There is associated edema. The ventricular system is normal in appearance. No mass or abnormal enhancement is seen. There is no mass effect or midline shift. There is no evidence of acute intraparenchymal hemorrhage. No extra axial fluid collections are seen. The corpus callosum, pituitary gland, and cerebellar tonsils appear grossly unremarkable. Flow voids of the major intracranial arterial vessels are identified. The imaged portions of the paranasal sinuses, mastoid air cells, and orbits are unremarkable. IMPRESSION: Redemonstration of acute infarct in the right parietal region with associated edema. No significant mass effect. No hemorrhagic transformation. ACT 112: Negative or not required by law. Electronically signed by: Chi Golden M.D. 09/16/2021 8:18 AM Head MRA 09/15/21 21:47 MRA OF THE INTRACRANIAL CIRCULATION WITHOUT CONTRAST CLINICAL HISTORY: Cerebrovascular accident. COMPARISON STUDY: MRA of the head September 10, 2021. TECHNIQUE: Utilizing a 1.5 Uma magnet and 3-D [id number] technique, unenhanced MRA of the intracranial circulation was obtained. FINDINGS: The bilateral M1, M2, A1 and A2 segments are patent. No intracranial aneurysm is identified. No central vessel occlusion is present. Posterior circulation is intact. Acute right parietal lobe infarct is noted. However, no associated vessel occlusion is identified on this exam. No dissection within the intracranial vessels. IMPRESSION: 1. No central vessel occlusion. No intracranial aneurysm. 2. Acute right parietal lobe infarct, better depicted on MRI of 09/13/2021. No associated vessel occlusion identified. ACT 112: Negative or not required by law. Electronically signed by: Adrian Hernandez M.D. 09/16/2021 8:05 AM Medications Administered Current Inpatient Medications Acetaminophen (Acetaminophen 325 Mg Tab) 650 mg PO Q4H PRN PRN Reason: Pain or Fever Stop: 10/15/21 21:46 Amlodipine Besylate (Amlodipine Besylate 5 Mg Tab) 2.5 mg PO DAILY COUNT INCLUDES THE [facility] Stop: 10/16/21 08:59 Last Admin: 09/16/21 08:47 Dose: 2.5 mg Documented by: Aspirin (Aspirin 81 Mg Ectab) 81 mg PO QAM COUNT INCLUDES THE [facility] Stop: 10/16/21 08:59 Last Admin: 09/16/21 08:48 Dose: 81 mg Documented by: Atorvastatin Calcium (Atorvastatin 20 Mg Tab) 20 mg PO DAILY COUNT INCLUDES THE [facility] Stop: 10/16/21 08:59 Last Admin: 09/16/21 08:48 Dose: 20 mg Documented by: Buspirone HCl (Buspirone 5 Mg Tab) 5 mg PO BID COUNT INCLUDES THE [facility] Stop: 10/15/21 21:46 Last Admin: 09/16/21 08:48 Dose: 5 mg Documented by: Clopidogrel Bisulfate (Clopidogrel Bisulfate 75 Mg Tab) 75 mg PO QAM COUNT INCLUDES THE [facility] Stop: 10/16/21 08:59 Last Admin: 09/16/21 08:49 Dose: 75 mg Documented by: Enoxaparin Sodium (Enoxaparin Inj 40 Mg/0.4 Ml Syr) 40 mg SQ QAM COUNT INCLUDES THE [facility] Stop: 10/16/21 08:59 Last Admin: 09/16/21 08:49 Dose: 40 mg Documented by: Famotidine (Famotidine 20 Mg Tab) 20 mg PO DAILY COUNT INCLUDES THE [facility] Stop: 10/16/21 08:59 Last Admin: 09/16/21 08:50 Dose: 20 mg Documented by: Fluticasone Furoate (Fluticasone Furoate 100mcg 14 Puffs/Inhaler) 1 puffs INH DAILY SMILEY Stop: 10/16/21 08:59 Last Admin: 09/16/21 08:50 Dose: 1 puffs Documented by: Fluticasone Propionate (Fluticasone Propionate Na Spr 16 Gm Btl) 2 sprays LIONEL DAILY SMILEY Stop: 10/16/21 08:59 Last Admin: 09/16/21 08:50 Dose: 2 sprays Documented by: Levothyroxine Sodium (Levothyroxine Sodium 50 Mcg Tablet) 50 mcg PO DAILYBB SMILEY Stop: 10/16/21 06:29 Last Admin: 09/16/21 06:32 Dose: 50 mcg Documented by: Metoprolol Succinate (Metoprolol Succ 25mg Ext Rel Tab) 25 mg PO DAILY SMILEY Stop: 10/16/21 08:59 Last Admin: 09/16/21 08:51 Dose: 25 mg Documented by: Pantoprazole Sodium (Pantoprazole 40 Mg Tab) 40 mg PO DAILY SMILEY Stop: 10/16/21 08:59 Last Admin: 09/16/21 08:51 Dose: 40 mg Documented by: Paroxetine HCl (Paroxetine Hcl 20 Mg Tab) 20 mg PO DAILY SMILEY Stop: 10/16/21 08:59 Last Admin: 09/16/21 08:49 Dose: 20 mg Documented by: Umeclidinium/Vilanterol (Umeclidinium/Vilanterol 62.5/25mcg 7 Puffs/Inhaler) 1 puffs INH DAILY SMILEY Stop: 10/16/21 08:59 Last Admin: 09/16/21 08:51 Dose: 1 puffs Documented by:
--- NOTE | 2021-09-16 17:13 | CT Scan Report ---
CT chest diagnostic wo con CT DOSE: 566.62 mGy.cm CLINICAL HISTORY: 86 years-old Female with rule out malignancy that may suggest hypercog stat. Acute generalized chest and abdominal pain TECHNIQUE: Multiaxial CT images of the chest were performed without contrast. A dose lowering techni que was utilized adhering to the principles of ALARA. COMPARISON: CT abdomen and pelvis of same day, chest CT 02/11/2021 FINDINGS: No thyroid nodule or pathologically enlarged lymph node. The heart is normal in size withou t pericardial effusion. Extensive mitral annular calcifications with moderate to severe coronary anatoly ry calcifications. There is atherosclerosis of the thoracic aorta without aneurysm. Trace pleural eff usions. Left Bochdalek hernia. There is no pneumothorax, pleural effusion or overt pulmonary edema. There is a new subpleural nodula r 1.1 x 1.0 cm consolidative opacity of the right lung apex on image 41 of series 6. Mild bibasilar b ronchiectasis with mucous plugging and linear subsegmental bibasilar atelectasis/scarring. There are a few scattered solid nodular opacities noted within the right middle lobe and lingula measuring up t o approximately 5 mm. Tree-in-bud nodules within the superior segment of the right lower lobe are gen erally stable. There is a new irregular 8 mm solid nodule of the left lower lobe on image 160. 8 mm s ubpleural nodule of the left upper lobe on image 105 is also new. Moderate sized hiatal hernia with mild mid to distal esophageal wall thickening. Unremarkable soft ti ssues. No acute fracture. Degenerative changes of the shoulders and spine. IMPRESSION: 1. Waxing and waning pulmonary opacities with mild right middle lobe bronchiectasis redemonstrated eldridge ggestive of a chronic infectious or inflammatory pneumonitis such as atypical mycobacterium. 2. There are three new nodular opacities of the lungs as above measuring up to 1.1 cm within the righ t upper lobe with additional subcentimeter nodular opacities within the left upper and lower lobes. 3 month follow-up chest CT recommended. 3. Moderate sized hiatal hernia. 4. No lymphadenopathy. ACT 112: Negative or not required by law. Electronically signed by: Omar Nunez M.D. 09/16/2021 5:11 PM
--- NOTE | 2021-09-16 17:20 | CT Scan Report ---
CT abd pelvis wo con CLINICAL HISTORY: Hypercoagulation state. Evaluate for possible occult malignancy COMPARISON STUDY: 10/22/2012 CT DOSE: TECHNIQUE: Standard CT of the Abdomen and Pelvis was performed without IV contrast. The patient did not receive oral contrast. A dose lowering technique was utilized adhering to the principles of KEILA Deras. FINDINGS: Lung base: The lung bases are clear. Abdominal cavity: There is no evidence for abdominal mass, adenopathy or ascites. Liver: The liver is homogeneous in attenuation on these limited noncontrast images.. Spleen: The spleen is homogeneous in attenuation on these limited noncontrast images. Pancreas: The pancreas is homogeneous in attenuation on these limited noncontrast images. Gall Bladder: The gallbladder is well distended with suspicion of minimal cholelithiasis. There is no CT evidence for acute cholecystitis. Adrenal glands: The adrenal glands are normal in size and attenuation on these limited noncontrast im ages. Kidneys: The kidneys are homogeneous in attenuation on these limited noncontrast images. There is no evidence for gross renal mass, calculus or hydronephrosis bilaterally. Bowel: There is a moderate size hiatal hernia. The bowel loops are normally placed within the abdomen and pelvis without evidence for dilatation or obstruction. There is no evidence for mass lesion. The re are no inflammatory changes present. There is no evidence for free air. There is a normal appendix in the right lower quadrant. Bladder: There is distention of the bladder with no evidence for focal bladder wall thickening, calcu homa or diverticulum. : There is no evidence for pelvic mass or adenopathy. Vasculature: There is no evidence for focal aneurysmal dilatation of the abdominal aorta. Mild athero sclerotic calcification is present. Osseous structures: There is no acute osseous pathology. Degenerative changes are present within the lumbar spine. IMPRESSION: 1. No acute intra-abdominal or pelvic abnormality on these limited noncontrast images. 2. Moderate-sized hiatal hernia. 3. Evidence for mild cholelithiasis with no CT evidence for acute cholecystitis. 4. Additional nonacute findings are delineated above. ACT 112: Negative or not required by law. Electronically signed by: Rodrigo Villalba M.D. 09/16/2021 5:19 PM
[2021-09-17] MEDS: LEVOTHYROXINE SODIUM 50 MCG TABLET PO SCH (05:41)
[2021-09-17 06:24] LABS: Basophils # (auto) 0.03 K/uL (0-0.2); Basophils % (auto) 0.5 %; Hematocrit (blood only) 37.1 % (37-47); Hemoglobin 12.6 g/dL (12.0-16.0); Lymphocytes # (auto) 2.09 K/uL (1.2-3.4); Lymphocytes % (auto) 31.6 %; Mean Corpuscular Hemoglobin 30.8 pg (25-34); Mean Corpuscular Volume 90.7 fL (80-100); Mean Platelet Volume 11.2 fL (7.4-10.4); Monocytes # (auto) 0.47 K/uL (0.11-0.59); Monocytes % (auto) 7.1 %; Neutrophils # (auto) 3.83 K/uL (1.4-6.5); Neutrophils % (auto) 57.8 %; Platelet Count 227 K/uL (130-400); RDW Coefficient of Variation 14.4 % (11.5-14.5); RDW Standard Deviation 48.4 fL (36.4-46.3); Red Blood Count 4.09 M/uL (4.2-5.4); White Blood Count 6.62 K/uL (4.8-10.8)
[2021-09-17 06:44] LABS: Calcium 8.8 mg/dl (8.5-10.1); Creatinine Clr Calc Pharmacy 29.4 ml/min; Est GFR (African American) 45.7 ml/min; Est GFR (Non-African American) 39.5 ml/min; Potassium 3.8 mmol/L (3.5-5.1)
--- NOTE | 2021-09-17 06:59 | Electrocardiogram Report ---
Test Reason : Blood Pressure : / mmHG Vent. Rate : 058 BPM Atrial Rate : 058 BPM P-R Int : 198 ms QRS Dur : 132 ms QT Int : 482 ms P-R-T Axes : 055 081 007 degrees QTc Int : 473 ms Sinus bradycardia Right bundle branch block T wave abnormality, consider anterolateral ischemia Abnormal ECG When compared with ECG of 13-SEP-2021 05:47, CA interval has decreased Confirmed by David Gonzalez ([id number]) on 09/17/2021 6:58:47 AM Referred By: REFERRED SELF Confirmed By:David Gonzalez
[2021-09-17] MEDS: FLUTICASONE PROPIONATE NA SPR 16 GM BTL NAE SCH (08:16)
[2021-09-17] MEDS: FLUTICASONE FUROATE 100MCG 14 PUFFS/INHALER INH SCH (08:16)
[2021-09-17] MEDS: UMECLIDINIUM/VILANTEROL 62.5/25MCG 7 PUFFS/INHALER INH SCH (08:16)
[2021-09-17] MEDS: ASPIRIN 81 MG ECTAB PO SCH (08:17)
[2021-09-17] MEDS: METOPROLOL SUCC 25MG EXT REL TAB PO SCH (08:17)
[2021-09-17] MEDS: FAMOTIDINE 20 MG TAB PO SCH (08:17)
[2021-09-17] MEDS: CLOPIDOGREL BISULFATE 75 MG TAB PO SCH (08:17)
[2021-09-17] MEDS: PANTOprazole 40 MG TAB PO SCH (08:17)
[2021-09-17] MEDS: ATORVASTATIN 20 MG TAB PO SCH (08:17)
[2021-09-17] MEDS: ENOXAPARIN INJ 40 MG/0.4 ML SYR SQ SCH (08:17)
[2021-09-17] MEDS: PARoxetine HCL 20 MG TAB PO SCH (08:17)
[2021-09-17] MEDS ORDERED: hydroCHLOROthiazide 25 MG TAB PO ONE (08:30)
[2021-09-17] MEDS ORDERED: amLODIPine BESYLATE 5 MG TAB PO ONE (08:30)
[2021-09-17] MEDS: busPIRone 5 MG TAB PO SCH (09:33)
--- NOTE | 2021-09-17 17:47 | Discharge Summary ---
Date of Service September 17, 2021 Admission HPI Per Admitting Provider History obtained from patient and records. Medical history significant for CVA, nonocclusive CAD as per records, hypertension, hyperlipidemia, CRI (baseline creatinine 1.2), OA, asthma, GERD, hypothyroidism, skin cancer as per records, history tremors, mild cognitive impairment as per records. Recent overnight confinement 2 days ago for acute CVA right parietal lobe presenting as painless vision loss on the left eye. Zio patch monitoring recommended by neurology outpatient. Patient had trouble reading discharge instructions and reading medication labels upon return home as per social work case manager note. When patient woke up this morning, patient noted blurry vision bilateral left greater than the right. No headache, no chest pain, no SOB. Patient compliant with home medications. Improved vision during wait at the ER. MEDICAL HISTORY: As above. SURGICAL HISTORY: Breast biopsy. Ptosis surgery, blepharoplasty FAMILY HISTORY: hypertension. Heart disease, skin cancer, diabetes, tremors PERSONAL SOCIAL HISTORY: Nonsmoker. 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 Principal Diagnosis TIA Discharge Data Allergies Allergy/AdvReac Type Severity Reaction Status Date / Time Iodinated Contrast Media Allergy Intermediate IV dye Verified 09/15/21 17:54 -hives NSAIDS (Non-Steroidal Allergy Unknown UNKNOWN Verified 09/15/21 17:54 Anti-Inflamma primidone Allergy Unknown UNKNOWN Verified 09/15/21 17:54 sertraline Allergy Unknown UNKNOWN Verified 09/15/21 17:54 Sulfa (Sulfonamide Allergy Unknown "SULFA" Verified 09/15/21 17:54 Antibiotics) ALLERGY Consultations 09/15/21 19:08 ED Decision to Admit Stat 09/15/21 21:47 Consult Neurology Routine Ordered Studies 09/15/21 16:42 CT head/brain wo con Stat 09/15/21 21:47 MR angio head wo con Urgent MR brain wo con Routine 09/16/21 16:02 CT abd pelvis wo con Routine CT chest diagnostic wo con Routine Hospital Course (1) TIA (transient ischemic attack): hx CVA less likely embolic source and per neuro, this is not likely a new event. No evidence of oxxult arrtyhmia on telemetry Cancer screening reviewed in outpatient notes and due for colonoscopy, last performed in 2007. Breast cancer screening up to date There are new pulmonary nodules that may represent malignancy, however, repeat CT recommended first within 3 months These nodules are new from Feb 14. 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 Notably there is no cough and no weight loss or other constitutional symptoms. Cont DAPT and follow-up with Neuro as originally recommended. Awaiting PT/OT and repeat neuro followup with final recs in am. HTN, chronic, controlled. hx nonocclusive CAD as per records hyperlipidemia on statin Rx hypothyroidism, euthyroid as of last year' TSH history tremors Right-sided neck/right upper extremity pain from exertion with recent move to new residence Prediabetes, hemoglobin A1c of 6.1 this month Mild cognitive impairment as per records, patient mentating well during encounter possible functional disability PT OT eval DVT prophylaxis. Lovenox subcu Full code DO Favian Anderson Discharge Plan Discharge Items Patient Disposition: Personal Assisted Reason For Visit: TIA Discharge Diagnosis: TIA Condition on Discharge: Good Activity: Resume your previous activity Non-emergency contact: Primary Care Provider and Neurologist Call non-emergency contact if: you have any medication questions, your symptoms worsen, your pain is not controlled, your pain is worsening, your pain is unusual for you and your pain is concerning for you Follow-up/Referrals: Heather Harper MD [Primary Care Provider] - (Date & Time 09/22/2021 11:00 AM Provider Heather Harper MD Department Family Practice [facility] ) Chante Mckee PA-C [Physician Blindmaker] - (Date & Time 10/15/2021 11:20 AM Provider Chante Mckee PA-C Department Neurology [facility] ) Diet: Heart Healthy Addtl Attending Provider Instructions: Please take all medications as instructed on discharge list below. It is recommended that you follow-up with neurology and with your primary care doctor at the date and time above to touch base after recent stroke and multiple hospitalizations. It was a pleasure taking care of you! Please call if you have any questions or problems. You can reach a [facility] hospital[facility] on duty at [facility] 24 hours a day by calling [phone]. Take care of yourself. DO [facility] Pending Studies at Discharge: No Stand-Alone Forms: My [facility] Skilled Items Patient informed of condition?: Yes DNR: No Discharge Level of Care: Other Communicable Disease: No Discharge Prognosis: Stable Lines: None Urinary Catheter: No Medications and DC Order Prescriptions: Continued famotidine [Acid Waxing Machine Operator (famotidine)] 20 mg tablet 20 mg PO DAILY Qty: 90 RF: 2 cholecalciferol (vitamin D3) 25 mcg (1,000 unit) capsule 2,000 unit PO DAILY RF: 0 buspirone 5 mg tablet 5 mg PO BID RF: 0 atorvastatin 20 mg tablet 20 mg PO DAILY RF: 0 meclizine 12.5 mg tablet 12.5 mg PO TID PRN (Reason: Dizziness) RF: 0 amlodipine 2.5 mg tablet 2.5 mg PO DAILY Qty: 90 RF: 3 fluticasone propionate 50 mcg/actuation spray,suspension 2 spray intranasal DAILY Qty: 15.8 RF: 2 Trelegy Ellipta 100-62.5-25 mcg blister with device 1 inh inhalation DAILY Qty: 3 RF: 3 paroxetine HCl 20 mg tablet 20 mg PO DAILY RF: 0 levothyroxine [Synthroid] 50 mcg tablet 50 mcg PO DAILYBB RF: 0 hydrochlorothiazide 25 mg tablet 12.5 mg PO DAILY RF: 0 clopidogrel 75 mg Tablet 75 mg PO QAM Qty: 30 RF: 0 aspirin 81 mg Tablet,Delayed Release (Dr/Ec) 81 mg PO QAM 19 Days Qty: 19 RF: 0 pantoprazole 40 mg Tablet,Delayed Release (Dr/Ec) 40 mg PO DAILY Qty: 30 RF: 0 metoprolol succinate 50 mg tablet extended release 24 hr 25 mg PO DAILY Qty: 0 RF: 0 Discharge Orders: Discharge Order (Routine); Ordered 09/17/21 Ordered By: Mahogany Pa Admission Data Admit Date/Time: 09/15/21 20:16 Attending Provider: Mahogany Pa Admit Provider: Amrik Mario Primary Care Provider: Heather Harper Other Providers: Amrik Mario ; Abisai Pimentel
[2021-09-18] MEDS ORDERED: ENOXAPARIN INJ 30 MG/0.3 ML SYR SQ SCH (09:00)
== END 2021-09-17 19:00 | disposition home or self-care (01) | DRG 69 ==
LOC: ED 16:01 → 2N 20:16

== ENCOUNTER 2023-07-29 13:17 | Inpatient (IN) ==
[2023-07-29] MEDS: SODIUM CHLORIDE 0.9% 1,000 ML IV SCH (14:22)
[2023-07-29] MEDS: SODIUM CHLORIDE 0.9% 500 ML IV SCH (14:22)
[2023-07-29 15:04] LABS: Albumin Globulin Ratio 1.3 (0.9-2); Albumin Level 4.3 gm/dl (3.4-5.0); BUN Creatinine Ratio 15.3 (10-20); Bilirubin,Total 1.5 mg/dl (0.2-1.0); Calcium 9.3 mg/dl (8.6-10.3); Creatinine Clr Calc Pharmacy 36.5 ml/min; Est GFR (African American) 60.5 ml/min; Est GFR (Non-African American) 52.2 ml/min; Globulin 3.3 gm/dl (2.5-4.0); Potassium 3.7 mmol/L (3.5-5.1); Total Protein 7.6 gm/dl (6.0-8.3)
[2023-07-29 15:07] LABS: Basophils # (auto) 0.03 K/uL (0.00-0.20); Basophils % (auto) 0.2 %; Hematocrit (blood only) 39.7 % (37.0-47.0); Hemoglobin 12.9 g/dl (12.0-16.0); Immature Granulocytes # (auto) 0.09 K/uL (0.01-0.20); Immature Granulocytes % (auto) 0.6 %; Lymphocytes # (auto) 0.58 K/uL (1.20-3.40); Lymphocytes % (auto) 3.9 %; Mean Corpuscular Hemoglobin 29.9 pg (25.0-34.0); Mean Corpuscular Hgb Conc 32.5 g/dL (32.0-36.0); Mean Corpuscular Volume 91.9 fL (80.0-100.0); Mean Platelet Volume 11.9 fL (9.4-12.4); Monocytes # (auto) 0.91 K/uL (0.11-0.59); Monocytes % (auto) 6.2 %; Neutrophils # (auto) 13.11 K/uL (1.40-6.50); Neutrophils % (auto) 89.1 %; Platelet Count 204 K/uL (130-400); RDW Coefficient of Variation 13.4 % (11.5-14.5); RDW Standard Deviation 45.5 fL (36.4-46.3); Red Blood Count 4.32 M/uL (4.20-5.40); White Blood Count 14.72 K/ul (4.8-10.8)
[2023-07-29 15:10] LABS: Troponin I High Sensitivity 15.3 pg/ml (0-14)
[2023-07-29 15:19] LABS: Thyroid Stimulating Hormone 0.807 uIu/ml (0.300-4.500)
[2023-07-29 15:37] LABS: Appearance Urine Clear (Clear); Bacteria Urine Automated None Seen (None Seen); Bilirubin Urine 1+ (Negative); Blood Urine Negative (Negative); Cast Urine Automated 0-2 /lpf (0-2); Color Urine Dark Yellow; Epithelial Cell Urine Auto 0-2 /hpf (0-2); Glucose Urine UA Negative (Negative); Ketones Urine Trace (Negative); Leukocyte Esterase Urine Trace (Negative); Nitrite Urine Negative (Negative); Protein Urine 1+ (Negative); Specific Gravity Urine 1.026 (1.000-1.030); Urobilinogen Urine Positive (Negative); WBC Urine Automated 0-5 /hpf (0-5)
--- NOTE | 2023-07-29 15:41 | XRay Report ---
SINGLE VIEW CHEST CLINICAL HISTORY: Generalized weakness. FINDINGS: An AP, portable, upright chest radiograph is compared to study dated 04/06/2022 and correlat ed with chest CT dated 06/16/2022. A hiatal hernia is noted. A 2-lead cardiac pacemaker is unchanged i n position. The heart is enlarged noting atherosclerotic calcification of the thoracic aorta. The pul monary vasculature is noncongested. Chronic interstitial thickening is similar to previous. There is airspace consolidation throughout the right upper lobe. Scarring/atelectasis is seen at the lung base s. No large pleural effusion or pneumothorax is identified. The skeletal structures are osteopenic. T he bony thorax is grossly intact. IMPRESSION: 1. Right upper lobe consolidation is typical for pneumonia. Clinical correlation will be required and radiographic follow-up to resolution is recommended. 2. Cardiomegaly and cardiac pacemaker without radiographic evidence of congestive failure. 3. Hiatal hernia. ACT 112: Negative or not required by law. Electronically signed by: Khang Almeida M.D. 07/29/2023 3:40 PM
[2023-07-29 16:11] LABS: Adenovirus PCR Not Detected (NotDetected); Bordetella parapertussis PCR Not Detected (NotDetected); Bordetella pertussis PCR Not Detected (NotDetected); Chlamydia pneumoniae PCR Not Detected (NotDetected); Coronavirus 229E PCR Not Detected (NotDetected); Coronavirus CoV-2 (COVID19)PCR Not Detected (NotDetected); Coronavirus HKU1 PCR Not Detected (NotDetected); Coronavirus NL63 PCR Not Detected (NotDetected); Coronavirus OC43PCR Not Detected (NotDetected); Human Metapneumovirus PCR Not Detected (NotDetected); Influenza A PCR Not Detected (NotDetected); Influenza B PCR Not Detected (NotDetected); Mycoplasma pneumoniae PCR Not Detected (NotDetected); Parainfluenza Virus 1 PCR Not Detected (NotDetected); Parainfluenza Virus 2 PCR Not Detected (NotDetected); Parainfluenza Virus 3 PCR Not Detected (NotDetected); Parainfluenza Virus 4 PCR Not Detected (NotDetected); Respiratory Syncytial VirusPCR Not Detected (NotDetected); Rhinovirus/Enterovirus PCR Not Detected (NotDetected)
[2023-07-29] MEDS: cefTRIAXone SODIUM 2,000 MG/50 ML BAG IV STA (18:19)
--- NOTE | 2023-07-29 19:31 | History & Physical Report ---
Date of Service July 29, 2023 Assessment & Plan (1) Pneumonia: (2) Chest discomfort: Plan: Patient is 88-year-old female with PMH HTN, dyslipidemia, CAD, asthma, bronchiectasis, chronic hypoxic respiratory failure on 2 L oxygen, SSS s/p pacemaker, CKD III, depression, anxiety, hypothyroidism and others listed below presented to ER with complaint of cough, chest discomfort x 2 days. Chills yesterday. Increased shortness of breath past couple days. In ER afebrile, vital stable. On chronic 2 L oxygen with sats 96%. WBC: 14. Lactate WNL. Procalcitonin: 0.1. Negative BioFire respiratory panel CXR: Consolidation RUL Blood cultures pending In ER given Rocephin, doxycycline, 500 mL NSS Obtain sputum culture, MRSA swab Continue Rocephin, doxycycline Xopenex as needed Incentive spirometry, flutter valve CBC, BMP in a.m. (3) Elevated troponin: (4) CAD (coronary artery disease): Plan: History 09/10/2021 echo: EF: 65-70%, grade 1 diastolic dysfunction, moderate mitral valve annular calcification and thickening of mitral valve, no mitral stenosis, mild aortic valve sclerosis without stenosis History moderate mid LAD obstruction via coronary CT in 2007, history of abnormal nuclear stress testing 05/18 and patient denied heart cath and is being managed medically Troponin: 15--> 17 EKG paced rhythm, T wave inversions Patient reports past 2 days with diffuse anterior chest discomfort. Has been having ongoing left shoulder pain for the past several weeks after fall Will trend troponin Echo Continue Plavix, atorvastatin, metoprolol succinate If troponins uptrending consider cardiology consult (5) Bronchiectasis: Plan: Bronchiectasis, asthma Chronic oxygen 2 L Continue chronic 2 L oxygen supplementation Continue home inhalers, Xopenex as needed (6) Shoulder pain, left: Plan: Left shoulder pain since fall weeks ago Seen in ER after fall 07/14/23 and negative Left shoulder xray at that time Consider ortho consult or further imaging (7) Microscopic hematuria: Plan: UA with 11-20 RBC Will need further outpatient workup and follow up (8) CKD (chronic kidney disease), stage III: Plan: Cr: 0.98. Baseline: 1.0 Monitor renal functions, avoid nephrotoxic agents when possible (9) Hypertension: Plan: Stable Continue amlodipine, metoprolol succinate Will hold HCTZ for now and reassess (10) Anxiety and depression: Plan: Continue buspirone, paroxetine (11) SSS (sick sinus syndrome): Plan: S/p pacemaker Pacemaker interrogation (12) Hypothyroidism: Plan: Continue levothyroxine DVT Prophylaxis Heparin SQ Full Code as per discussion with patient however reports would not want prolonged life support if poor prognosis Follows with Dr Harper for routine care Pt was seen and care coordinated with Dr Pa. See addendum I spent a total of 77 minutes reviewing notes, outpatient records, labs, medication, coordinating, documenting and providing care for this patient excluding time spent in the performance of separately billed services. History of Present Illness Chief Complaint: Left shoulder pain and chest discomfort and cough Primary Care Provider: Heather Harper MD Patient is 88-year-old female with PMH HTN, dyslipidemia, CAD, asthma, bronchiectasis, chronic hypoxic respiratory failure on 2 L oxygen, SSS s/p pacemaker, CKD III, depression, anxiety, hypothyroidism and others listed below presented to ER with complaint of cough, chest discomfort and left shoulder pain. History obtained from patient, inpatient and outpatient chart review. Patient reports she tripped and fell and was seen at [facility] ER 07/14/2023 and had negative xray of left shoulder, left elbow, left forearm and left wrist. Since that time patient been having left wrist pain, left shoulder pain, and right knee pain. Patient states right knee bruising is improving and feels a little bit less swollen. She feels like pain is improving as well. She has been able to move knee and ambulate without difficulty. Patient reports bilateral wrists and hands seem to have decreased pain and seem to be slightly improving. Her main concern is her left shoulder. Is still having pain with attempted range of motion. Reports limited range of motion of shoulder secondary to pain. She reports history left shoulder rotator cuff repair in the past. Patient states left shoulder has been painful and the past couple days has been having diffuse anterior chest aching. States last couple days with cough sometimes productive however has not looked at color of phlegm. Yesterday had chills. Did not take her temperature at home. Feels has been having more shortness of breath past couple of days. She reports chronic intermittent shortness of breath. Does not think she has had any increased wheezing. Denies any increased lower extremity edema. Denies ill contacts. Denies diaphoresis, N/V/D/C, RAM, dizziness, syncope, vision changes, neck pain, orthopnea, palpitations, hemoptysis, sore throat, choking, otalgia, rhinorrhea, abdominal pain, paresthesias, weakness, increased extremity edema, rashes, urinary symptoms. Allergies Allergy/AdvReac Type Severity Reaction Status Date / Time Iodinated Contrast Media Allergy Intermediate IV dye Verified 07/18/23 14:03 -hives NSAIDS (Non-Steroidal Allergy Unknown UNKNOWN Verified 07/18/23 14:03 Anti-Inflamma primidone Allergy Unknown UNKNOWN Verified 07/18/23 14:03 sertraline Allergy Unknown UNKNOWN Verified 07/18/23 14:03 Sulfa (Sulfonamide Allergy Unknown "SULFA" Verified 07/18/23 14:03 Antibiotics) ALLERGY Home Medications Medication Instructions Recorded Confirmed Type cholecalciferol (vitamin D3) 25 2,000 unit PO DAILY 05/18/20 07/29/23 History mcg (1,000 unit) capsule buspirone 5 mg tablet 5 mg PO BID 06/01/21 07/29/23 History meclizine 12.5 mg tablet 12.5 mg PO TID PRN Dizziness 06/01/21 07/29/23 History famotidine 20 mg tablet (Acid 20 mg PO DAILY #90 tabs 06/02/21 07/29/23 Rx Planner/Scheduler (famotidine)) fluticasone propionate 50 2 spray intranasal DAILY #15.8 08/24/21 07/29/23 Rx mcg/actuation nasal grams spray,suspension hydrochlorothiazide 25 mg tablet 25 mg PO Q2D 09/09/21 07/29/23 History levothyroxine 50 mcg tablet 50 mcg PO DAILYBB 09/09/21 07/29/23 History (Synthroid) paroxetine HCl 20 mg tablet 20 mg PO DAILY 09/09/21 07/29/23 History clopidogrel 75 mg tablet 75 mg PO QAM #30 tabs 09/11/21 07/29/23 Rx Flutter Valve #1 ea 03/14/22 07/29/23 Rx Portable Oxygen E0431 #1 ea 07/26/22 07/29/23 Rx amlodipine 2.5 mg tablet 2.5 mg PO BID #120 tabs 10/31/22 07/29/23 Rx fluticasone fur. 100 mcg-umeclid 1 inh inhalation DAILY #3 Inhalers 07/26/23 07/29/23 Rx 62.5 mcg-vilant 25 mcg inhalat.powder (Trelegy Ellipta) atorvastatin 80 mg tablet 80 mg PO DAILY 07/29/23 07/29/23 History levalbuterol tartrate 45 1 inh inhalation Q6H PRN Shortness 07/29/23 07/29/23 History mcg/actuation aerosol inhaler Of Breath Or Wheezing metoprolol succinate 50 mg 50 mg PO DAILY 07/29/23 07/29/23 History tablet,extended release 24 hr omeprazole 40 mg capsule,delayed 40 mg PO DAILY 07/29/23 07/29/23 History release Past Med/Surg History Medical History (Updated 07/29/23 @ 21:57 by Abisai Hess MD) Pacemaker SSS (sick sinus syndrome) Anxiety and depression CAD (coronary artery disease) Weakness of voice Dyspnea on exertion Chronic cough Bronchiectasis Sensorineural hearing loss of both ears Essential tremor Hypercholesterolemia Osteoporosis Secondary hyperparathyroidism GERD (gastroesophageal reflux disease) Heart block Vitamin D deficiency Surgical History Hx of blepharoplasty Hx of repair of rotator cuff Hx of tonsillectomy History of breast lump removal Family History Father Hypertension Heart disease Mother Hypertension Asthma Other Cancer Diabetes Kidney disease Lung disease No family history of adverse response to anesthesia No family history of bleeding disorder Social History Smoking Status: Never smoker Second Hand Exposure: No; Do You Dip or Chew Tobacco: No; Hx Alcohol Use: Yes Alcohol type: wine Alcohol Intake Frequency Comment: occasional Hx Substance Use: No Preferred Language: Marshallese Communication Ability: Effective Talent Advisor Required: No Beliefs That Will Affect Care: None marital status: / Current Living Situation: Alone Current Living Situation Comment: [facility] current occupational status: retired Feels Safe at Home: Yes Safety Concerns: Feels Safe At This Time Assistive Devices: Glasses and Oxygen - at Night Review of Systems Review of Systems: All systems reviewed & are unremarkable except as noted in HPI & below Physical Exam Physical Exam: General: no acute distress, WDWN Head: normocephalic, atraumatic Eyes: conjunctiva non-injected, anicteric ENT: normal inspection external ears, nose, mucous membranes moist Neck: supple, trachea midline Lungs: no respiratory distress on 2L O2 via NC, speaks in sentences. +rales RUL CV: RRR, no JVD, trace pretibial edema, no chest wall tenderness to palpation Abd: normal BS, soft, non-tender Ext: no cyanosis, no calf tenderness; LUE: No ecchymosis or edema. +tenderness to palpation anterior shoulder. Active ROM to approximately 90 degrees with flexion and abduction and causes tenderness. Full active ROM of elbow and wrist, distal pulses intact. Right knee: +edema and yellow/green ecchymosis, +tenderness to palpation anterior knee, Flexion and extension intact. Distal pulses intact. Neuro: A&O x 3, no focal deficits noted, normal affect Skin: warm, dry Results & Data Results & Data Vital Signs (Past 12 Hours) Vital Signs Temp Pulse Resp BP Pulse Ox O2 Del Method O2 Flow Rate 07/29/23 19:21 68 23 95 07/29/23 19:10 75 20 98 07/29/23 19:01 68 24 94 07/29/23 18:53 93 H 22 95 07/29/23 18:40 72 18 97 07/29/23 18:30 71 25 H 98 07/29/23 18:20 82 23 07/29/23 18:00 82 23 91 07/29/23 17:50 69 19 97 07/29/23 17:43 64 19 98 07/29/23 17:32 137/52 L 07/29/23 17:32 74 21 94 07/29/23 17:30 70 21 95 07/29/23 17:21 70 17 95 07/29/23 17:10 86 28 H 94 07/29/23 17:09 135/59 L 07/29/23 17:08 63 21 95 07/29/23 17:00 37.2 C 62 22 94 07/29/23 16:50 62 22 94 07/29/23 16:42 63 23 94 07/29/23 16:30 63 23 94 07/29/23 16:20 62 22 94 07/29/23 16:10 65 21 92 05/04/24 16:02 67 24 96 07/29/23 15:50 65 22 93 07/29/23 15:40 65 25 H 96 07/29/23 15:31 66 19 95 07/29/23 15:20 62 20 97 07/29/23 15:16 64 07/29/23 15:10 67 21 96 07/29/23 15:00 143/67 H 07/29/23 15:00 70 23 96 07/29/23 14:59 71 20 94 Room Air 07/29/23 14:58 131/74 07/29/23 14:57 65 26 H 92 07/29/23 14:54 65 19 94 07/29/23 14:40 66 23 95 07/29/23 14:30 67 19 96 07/29/23 14:27 94 Room Air 07/29/23 14:26 36.8 C 07/29/23 14:25 20 168/101 H 97 Room Air 07/29/23 14:21 169/108 H 07/29/23 14:21 66 18 96 07/29/23 14:20 62 23 95 07/29/23 14:18 66 18 95 07/29/23 13:59 37.1 C 71 18 153/6 H 96 Nasal Cannula 2 Laboratory Results Short CBC 07/29/23 Range/Units 14:18 WBC 14.72 H (4.8-10.8) K/ul Hgb 12.9 (12.0-16.0) g/dl Hct 39.7 (37.0-47.0) % Plt Count 204 (130-400) K/uL BMP 07/29/23 14:18 Sodium 136 Potassium 3.7 Chloride 101 Carbon Dioxide 25 BUN 15 Creatinine 0.98 Glucose 128 H Calcium 9.3 Liver Function 07/29/23 Range/Units 14:18 Total Bilirubin 1.5 H (0.2-1.0) mg/dl AST 18 (13-39) U/L ALT 15 (7-52) U/L Alkaline Phosphatase 96 (34-104) U/L Albumin 4.3 (3.4-5.0) gm/dl Urine 07/29/23 Range/Units 15:03 Urine Color Dark Yellow Urine Appearance Clear (Clear) Urine pH 6.0 (4.5-7.5) Ur Specific [place] 1.026 (1.000-1.030) Urine Protein 1+ H (Negative) Urine Glucose (UA) Negative (Negative) Diagnostic Findings Chest X-Ray 07/29/23 14:11 SINGLE VIEW CHEST CLINICAL HISTORY: Generalized weakness. FINDINGS: An AP, portable, upright chest radiograph is compared to study dated 04/06/2022 and correlated with chest CT dated 06/16/2022. A hiatal hernia is noted. A 2-lead cardiac pacemaker is unchanged in position. The heart is enlarged noting atherosclerotic calcification of the thoracic aorta. The pulmonary vasculature is noncongested. Chronic interstitial thickening is similar to previous. There is airspace consolidation throughout the right upper lobe. Scarring/atelectasis is seen at the lung bases. No large pleural effusion or pneumothorax is identified. The skeletal structures are osteopenic. The bony thorax is grossly intact. IMPRESSION: 1. Right upper lobe consolidation is typical for pneumonia. Clinical correlation will be required and radiographic follow-up to resolution is recommended. 2. Cardiomegaly and cardiac pacemaker without radiographic evidence of congestive failure. 3. Hiatal hernia. ACT 112: Negative or not required by law. Electronically signed by: Khang Almeida M.D. 07/29/2023 3:40 PM Code Status & VTE Plan VTE Prophylaxis Plan VTE Prophylaxis will be ordered: Yes Supervising Physician Co-Signing Physician Notes I have seen and examined the patient and have discussed the case with the provider above. I have reviewed the advanced practitioner's documentation, and I agree with, and take responsibility for that plan of care. 88 yo F who ambulates independently at baseline, presents for weakness related to pneumonia +cough present, slight hypoxia. +chills reported with symptoms ongoing for the past 1.5 weeks Shoulder pain and chest pain (described ask MSK) is consistent when lying or resting. There is no chest pain with exertion and no other symptoms of ACS. She is not septic and is in NAD BP 95/54, P 67, RR 20, AF WNWD, lungs are CTAB CV: S1.2 heard, no murmurs, euvolemic Abd soft NTND Mentating clearly Left shoulder exam reveals restriction in internal rotation, otherwise there is guarded but good ROM with active movement of the left arm No TTP in left elbow or L wrist. Labs, imaging, EKG, meds reviewed. WBC 14K, chem panel WNL, trop HS is mildly elevated with no increased velocity in rise Neg procalcitonin, neg respiratory biofire panel EKG with RBBB and TWI in multiple leads 1. weakness 2/2 RUL pneumonia 2. Left shoulder and chest pain 2/2 recent trauma 3. Microscopic hematuria Agree with Rocephin/Doxy to treat PNA, PT/OT consults for weakness Will pursue shoulder and elbow imaging--may need to consider MRI as outpatient given we are a couple of weeks out from the fall at this point She cannot take NSAIDs 2/2 allergy so continue scheduled tylenol and ice packs to the area. Followup with PCP for workup of microscopic hematuria as outpatient (5) Bronchiectasis Bronchiectasis type: uncomplicated Qualified Code(s): J47.9 - Bronchiectasis, uncomplicated
[2023-07-29] MEDS: DOXYCYCLINE HYCLATE 100 MG in DEXTROSE 5% MINI-B 100 ML IV STA (19:44)
[2023-07-29] MEDS: ACETAMINOPHEN 500 MG TAB PO ONE (20:29)
[2023-07-29] MEDS ORDERED: LEVALBUTEROL 1.25MG/0.5ML NEB NEB PRN (20:35)
[2023-07-29] MEDS ORDERED: POLYETHYLENE (MIRALAX) 17 GM PACK PO PRN (20:35)
[2023-07-29] MEDS ORDERED: ACETAMINOPHEN 325 MG TAB PO PRN (20:35)
[2023-07-29] MEDS ORDERED: ONDANSETRON INJ 2 MG/ML 2 ML VIAL IV PRN (20:35)
[2023-07-29] MEDS: busPIRone 5 MG TAB PO SCH (21:54)
[2023-07-29] MEDS: amLODIPine BESYLATE 5 MG TAB PO SCH (21:54)
[2023-07-29] MEDS: HEPARIN SOD 5,000 UNIT/0.5 ML VIAL SQ SCH (21:55)
--- NOTE | 2023-07-29 21:58 | Emergency Department Note ---
Impression & Plan Pneumonia, Elevated troponin, Abnormal ECG ED Provider Note NAME: BRANDON RANGEL AGE: 88 SEX: Female INFORMANT: Patient ED PROVIDER(S): Abisai Hess MD CHIEF COMPLAINT: Flulike symptoms PLAN: Disposition: Admitted Outpatient prescription management: none Referral: None MEDICAL DECISION MAKING: Patient presented because of flulike symptoms. Workup was initiated. She was found to have right upper lobe infiltrate and leukocytosis. Her troponin was mildly elevated. ECG did have some changes compared to prior. Patient does not have any chest pain. She was treated with IV doxycycline and IV ceftriaxone. Bio fire testing was negative. In light of the abnormal ECG, laboratory findings, and pneumonia I discussed further management in the hospital. Patient was in agreement. [facility] Patient was evaluated in the ER admitted for further management. Care/management discussed with: manager fire Level of care consideration(s): After review of the information above and other included data, I feel the patient requires escalation of care to admission Triage Nursing notes: reviewed and agree them. Vital Signs: reviewed and remarkable for no significant abnormalities Additional History obtained from: none Chronic Medical/Social Conditions affecting care: CAD Prior/ Outside/ External records reviewed: none Differential Diagnosis: Viral syndrome, otitis, pharyngitis, pneumonia, influenza, meningitis, urinary tract infection, sepsis, bacteremia, as well as other pathologies. Diagnostics, independently interpreted by me: ECG: Twelve-lead ECG reveals an atrial paced rhythm with prolonged AV conduction at 69 bpm. Right bundle branch block. There are T wave inversions anterior laterally as well as inferiorly. When compared to her prior ECGs the T wave inversions are more pronounced and new in the anterolateral segments Cardiac Monitoring: Cardiac monitoring ordered by me: The patient was placed on continuous cardiac monitoring and observed. It revealed a paced rhythm at 67 bpm Medical decision rules: none Imaging studies: Chest x-ray reveals right upper lobe infiltrate. I refer you to the EMR for further details. HPI: 88 year old Female arrives for evaluation of flulike symptoms. Patient notes a fever of 101. This started yesterday and worsened. Patient also noted some discomfort with urination and feels generally weak. She did take some Tylenol. Denies any sick contacts. She notes 2 out of 10 pain and notes this is in her muscles in the upper and lower extremities. Pt denies LOC, headache, visual changes, neck pain, chest pain, breathing difficulties, nausea, vomiting, abdominal pain, back pain, melena, hematochezia, numbness, lymphadenopathy, rash, or other complaints. PAST MEDICAL HISTORY: See Below, CVA, CKD, hypertension PAST SURGICAL HISTORY: See Below, SOCIAL HISTORY: See Below, retired. Lives alone. HOME MEDICATIONS: See Below ALLERGIES: See Below VITALS: See Below PHYSICAL EXAMINATION: GENERAL: Awake, alert, well-appearing, in no distress HENT: Normocephalic, atraumatic. Oropharynx unremarkable. EYES: Normal conjunctiva. Sclera non-icteric. NECK: Inspection normal. Non-tender. Supple. No nuchal rigidity. FROM. No masses. RESPIRATORY: Clear to auscultation. No wheezes. No rales. Normal respiratory effort. CARDIAC: Normal rate. Normal rhythm. No murmurs. No rubs. Extremities warm and well perfused. Pulses equal. No JVD. GI: Soft, non-distended. No tenderness to palpation. No rebound or guarding. No masses. RECTAL: Deferred. MUSCULOSKELETAL: Atraumatic. Chest examination reveals no tenderness. The back is symmetrical on inspection without obvious abnormality. There is no CVA tenderness to palpation. No joint edema. LOWER EXTREMITIES: Calves are equal size bilaterally and non-tender. No edema. No discoloration. NEURO: Normal sensorium. No sensory or motor deficits noted. SKIN: No rash or jaundice noted. PROCEDURES: none CRITICAL CARE: none OBSERVATION NOTE: none Past Med/Surg History Medical History (Updated 07/29/23 @ 21:57 by Abisai Hess MD) Pacemaker SSS (sick sinus syndrome) Anxiety and depression CAD (coronary artery disease) Weakness of voice Dyspnea on exertion Chronic cough Bronchiectasis Sensorineural hearing loss of both ears Essential tremor Hypercholesterolemia Osteoporosis Secondary hyperparathyroidism GERD (gastroesophageal reflux disease) Heart block Vitamin D deficiency Surgical History Hx of blepharoplasty Hx of repair of rotator cuff Hx of tonsillectomy History of breast lump removal Family History Father Hypertension Heart disease Mother Hypertension Asthma Other Cancer Diabetes Kidney disease Lung disease No family history of adverse response to anesthesia No family history of bleeding disorder Social History Smoking Status: Never smoker Second Hand Exposure: No; Do You Dip or Chew Tobacco: No; Hx Alcohol Use: Yes Alcohol type: wine Alcohol Intake Frequency Comment: occasional Hx Substance Use: No Preferred Language: Turkish Communication Ability: Effective Stringed Instrument Assembler Required: No Beliefs That Will Affect Care: None marital status: / Current Living Situation: Alone Current Living Situation Comment: [facility] current occupational status: retired Feels Safe at Home: Yes Safety Concerns: Feels Safe At This Time Assistive Devices: Glasses and Oxygen - at Night Allergies Allergies Allergy/AdvReac Type Severity Reaction Status Date / Time Iodinated Contrast Media Allergy Intermediate IV dye Verified 07/18/23 14:03 -hives NSAIDS (Non-Steroidal Allergy Unknown UNKNOWN Verified 07/18/23 14:03 Anti-Inflamma primidone Allergy Unknown UNKNOWN Verified 07/18/23 14:03 sertraline Allergy Unknown UNKNOWN Verified 07/18/23 14:03 Sulfa (Sulfonamide Allergy Unknown "SULFA" Verified 07/18/23 14:03 Antibiotics) ALLERGY Home Meds Home Medications Medication Instructions Recorded Confirmed cholecalciferol (vitamin D3) 25 2,000 unit PO DAILY 05/18/20 07/29/23 mcg (1,000 unit) capsule buspirone 5 mg tablet 5 mg PO BID 06/01/21 07/29/23 meclizine 12.5 mg tablet 12.5 mg PO TID PRN Dizziness 06/01/21 07/29/23 hydrochlorothiazide 25 mg tablet 25 mg PO Q2D 09/09/21 07/29/23 levothyroxine 50 mcg tablet 50 mcg PO DAILYBB 09/09/21 07/29/23 (Synthroid) paroxetine HCl 20 mg tablet 20 mg PO DAILY 09/09/21 07/29/23 atorvastatin 80 mg tablet 80 mg PO DAILY 07/29/23 07/29/23 levalbuterol tartrate 45 1 inh inhalation Q6H PRN Shortness 07/29/23 07/29/23 mcg/actuation aerosol inhaler Of Breath Or Wheezing metoprolol succinate 50 mg 50 mg PO DAILY 07/29/23 07/29/23 tablet,extended release 24 hr omeprazole 40 mg capsule,delayed 40 mg PO DAILY 07/29/23 07/29/23 release Previous Rx's Medication Instructions Recorded famotidine 20 mg tablet (Acid 20 mg PO DAILY #90 tabs 06/02/21 Proposal Engineer (famotidine)) fluticasone propionate 50 2 spray intranasal DAILY #15.8 08/24/21 mcg/actuation nasal grams spray,suspension clopidogrel 75 mg tablet 75 mg PO QAM #30 tabs 09/11/21 Flutter Valve #1 ea 03/14/22 Portable Oxygen E0431 #1 ea 07/26/22 amlodipine 2.5 mg tablet 2.5 mg PO BID #120 tabs 10/31/22 fluticasone fur. 100 mcg-umeclid 1 inh inhalation DAILY #3 Inhalers 07/26/23 62.5 mcg-vilant 25 mcg inhalat.powder (Trelegy Ellipta) Results & Data (ED) Vital Signs Vital Signs - 24 hr 07/29/23 13:59 07/29/23 14:18 07/29/23 14:20 Temperature 37.1 C Temperature Source Temporal Artery Scan Pulse Rate 71 66 62 Pulse Rate from SpO2 Sensor 67 64 Pulse Rhythm Respiratory Rate 18 18 23 Blood Pressure 153/6 H Blood Pressure Mean 55 Pulse Oximetry 96 95 95 Oxygen Delivery Method Nasal Cannula Oxygen Flow Rate 2 Sepsis Recent Fever Within 48 Hours Yes Sepsis New/Unexplained Change in Mental Status No Sepsis Action Taken by Nursing No Action Required 07/29/23 14:21 07/29/23 14:21 07/29/23 14:25 Temperature Temperature Source Pulse Rate 66 Pulse Rate from SpO2 Sensor 66 Pulse Rhythm Respiratory Rate 18 20 Blood Pressure 169/108 H 168/101 H Blood Pressure Mean 112 123 Pulse Oximetry 96 97 Oxygen Delivery Method Room Air Oxygen Flow Rate Sepsis Recent Fever Within 48 Hours Sepsis New/Unexplained Change in Mental Status Sepsis Action Taken by Nursing 07/29/23 14:26 07/29/23 14:27 07/29/23 14:30 Temperature 36.8 C Temperature Source Oral Pulse Rate 67 Pulse Rate from SpO2 Sensor 67 Pulse Rhythm Respiratory Rate 19 Blood Pressure Blood Pressure Mean Pulse Oximetry 94 96 Oxygen Delivery Method Room Air Oxygen Flow Rate Sepsis Recent Fever Within 48 Hours Sepsis New/Unexplained Change in Mental Status Sepsis Action Taken by Nursing 07/29/23 14:40 07/29/23 14:54 07/29/23 14:57 Temperature Temperature Source Pulse Rate 66 65 65 Pulse Rate from SpO2 Sensor 66 64 65 Pulse Rhythm Respiratory Rate 23 19 26 H Blood Pressure Blood Pressure Mean Pulse Oximetry 95 94 92 Oxygen Delivery Method Oxygen Flow Rate Sepsis Recent Fever Within 48 Hours Sepsis New/Unexplained Change in Mental Status Sepsis Action Taken by Nursing 07/29/23 14:58 07/29/23 14:59 07/29/23 15:00 Temperature Temperature Source Pulse Rate 71 70 Pulse Rate from SpO2 Sensor 70 Pulse Rhythm Regular Respiratory Rate 20 23 Blood Pressure 131/74 Blood Pressure Mean 107 Pulse Oximetry 94 96 Oxygen Delivery Method Room Air Oxygen Flow Rate Sepsis Recent Fever Within 48 Hours Sepsis New/Unexplained Change in Mental Status Sepsis Action Taken by Nursing 07/29/23 15:00 07/29/23 15:10 07/29/23 15:16 Temperature Temperature Source Pulse Rate 67 64 Pulse Rate from SpO2 Sensor 67 Pulse Rhythm Respiratory Rate 21 Blood Pressure 143/67 H Blood Pressure Mean 111 Pulse Oximetry 96 Oxygen Delivery Method Oxygen Flow Rate Sepsis Recent Fever Within 48 Hours Sepsis New/Unexplained Change in Mental Status Sepsis Action Taken by Nursing 07/29/23 15:20 07/29/23 15:31 07/29/23 15:40 Temperature Temperature Source Pulse Rate 62 66 65 Pulse Rate from SpO2 Sensor 63 65 66 Pulse Rhythm Respiratory Rate 20 19 25 H Blood Pressure Blood Pressure Mean Pulse Oximetry 97 95 96 Oxygen Delivery Method Oxygen Flow Rate Sepsis Recent Fever Within 48 Hours Sepsis New/Unexplained Change in Mental Status Sepsis Action Taken by Nursing 07/29/23 15:50 07/29/23 16:02 07/29/23 16:10 Temperature Temperature Source Pulse Rate 65 67 65 Pulse Rate from SpO2 Sensor 65 66 65 Pulse Rhythm Respiratory Rate 22 24 21 Blood Pressure Blood Pressure Mean Pulse Oximetry 93 96 92 Oxygen Delivery Method Oxygen Flow Rate Sepsis Recent Fever Within 48 Hours Sepsis New/Unexplained Change in Mental Status Sepsis Action Taken by Nursing 07/29/23 16:20 07/29/23 16:30 07/29/23 16:42 Temperature Temperature Source Pulse Rate 62 63 63 Pulse Rate from SpO2 Sensor 63 63 63 Pulse Rhythm Respiratory Rate 22 23 23 Blood Pressure Blood Pressure Mean Pulse Oximetry 94 94 94 Oxygen Delivery Method Oxygen Flow Rate Sepsis Recent Fever Within 48 Hours Sepsis New/Unexplained Change in Mental Status Sepsis Action Taken by Nursing 07/29/23 16:50 07/29/23 17:00 07/29/23 17:08 Temperature 37.2 C Temperature Source Pulse Rate 62 62 63 Pulse Rate from SpO2 Sensor 62 62 62 Pulse Rhythm Respiratory Rate 22 22 21 Blood Pressure Blood Pressure Mean Pulse Oximetry 94 94 95 Oxygen Delivery Method Oxygen Flow Rate Sepsis Recent Fever Within 48 Hours Sepsis New/Unexplained Change in Mental Status Sepsis Action Taken by Nursing 07/29/23 17:09 07/29/23 17:10 07/29/23 17:21 Temperature Temperature Source Pulse Rate 86 70 Pulse Rate from SpO2 Sensor 72 69 Pulse Rhythm Respiratory Rate 28 H 17 Blood Pressure 135/59 L Blood Pressure Mean 96 Pulse Oximetry 94 95 Oxygen Delivery Method Oxygen Flow Rate Sepsis Recent Fever Within 48 Hours Sepsis New/Unexplained Change in Mental Status Sepsis Action Taken by Nursing 07/29/23 17:30 07/29/23 17:32 07/29/23 17:32 Temperature Temperature Source Pulse Rate 70 74 Pulse Rate from SpO2 Sensor 71 72 Pulse Rhythm Respiratory Rate 21 21 Blood Pressure 137/52 L Blood Pressure Mean 63 Pulse Oximetry 95 94 Oxygen Delivery Method Oxygen Flow Rate Sepsis Recent Fever Within 48 Hours Sepsis New/Unexplained Change in Mental Status Sepsis Action Taken by Nursing 07/29/23 17:43 07/29/23 17:50 07/29/23 18:00 Temperature Temperature Source Pulse Rate 64 69 82 Pulse Rate from SpO2 Sensor 68 70 86 Pulse Rhythm Respiratory Rate 19 19 23 Blood Pressure Blood Pressure Mean Pulse Oximetry 98 97 91 Oxygen Delivery Method Oxygen Flow Rate Sepsis Recent Fever Within 48 Hours Sepsis New/Unexplained Change in Mental Status Sepsis Action Taken by Nursing 07/29/23 18:20 07/29/23 18:30 Temperature Temperature Source Pulse Rate 82 71 Pulse Rate from SpO2 Sensor 86 72 Pulse Rhythm Respiratory Rate 23 25 H Blood Pressure Blood Pressure Mean Pulse Oximetry 98 Oxygen Delivery Method Oxygen Flow Rate Sepsis Recent Fever Within 48 Hours Sepsis New/Unexplained Change in Mental Status Sepsis Action Taken by Nursing Laboratory Data 07/29/23 14:18 07/29/23 14:18 Lab Results 07/29/23 07/29/23 07/29/23 Range/Units 14:18 15:03 15:13 WBC 14.72 H (4.8-10.8) K/ul RBC 4.32 (4.20-5.40) M/uL Hgb 12.9 (12.0-16.0) g/dl Hct 39.7 (37.0-47.0) % MCV 91.9 (80.0-100.0) fL MCH 29.9 (25.0-34.0) pg MCHC 32.5 (32.0-36.0) g/dL RDW Std Deviation 45.5 (36.4-46.3) fL RDW Coeff of Lakshmi 13.4 (11.5-14.5) % Plt Count 204 (130-400) K/uL MPV 11.9 (9.4-12.4) fL Immature Gran % (Auto) 0.6 % Neut % (Auto) 89.1 % Lymph % (Auto) 3.9 % [place] % (Auto) 6.2 % Eos % (Auto) 0.0 % Baso % (Auto) 0.2 % Neut # (Auto) 13.11 H (1.40-6.50) K/uL Lymph # (Auto) 0.58 L (1.20-3.40) K/uL [place] # (Auto) 0.91 H (0.11-0.59) K/uL Eos # (Auto) 0.00 (0.00-0.50) K/uL Baso # (Auto) 0.03 (0.00-0.20) K/uL Immature Gran # (Auto) 0.09 (0.01-0.20) K/uL Sodium 136 (136-145) mmol/L Potassium 3.7 (3.5-5.1) mmol/L Chloride 101 (98-107) mmol/L Carbon Dioxide 25 (21-32) mmol/L Anion Gap 10 (3-11) BUN 15 (6-23) mg/dl Creatinine 0.98 (0.6-1.2) mg/dl Est Cr Clr Drug Dosing 36.5 ml/min Est GFR ( Amer) 60.5 ml/min Est GFR (Non-Af Amer) 52.2 ml/min BUN/Creatinine Ratio 15.3 (10-20) Glucose 128 H (70-99(Fasting)) mg/dl Lactate 1.5 (0.4-2.0) mmol/L Calcium 9.3 (8.6-10.3) mg/dl Magnesium 2.0 (1.7-2.4) mg/dl Total Bilirubin 1.5 H (0.2-1.0) mg/dl AST 18 (13-39) U/L ALT 15 (7-52) U/L Alkaline Phosphatase 96 (34-104) U/L Troponin I High Sens 15.3 H (0-14) pg/ml Total Protein 7.6 (6.0-8.3) gm/dl Albumin 4.3 (3.4-5.0) gm/dl Globulin 3.3 (2.5-4.0) gm/dl Albumin/Globulin Ratio 1.3 (0.9-2) Procalcitonin 0.10 (0-0.5) ng/ml TSH 0.807 (0.300-4.500) uIu/ml Urine Color Dark Yellow Urine Appearance Clear (Clear) Urine pH 6.0 (4.5-7.5) Ur Specific [place] 1.026 (1.000-1.030) Urine Protein 1+ H (Negative) Urine Glucose (UA) Negative (Negative) Urine Ketones Trace H (Negative) Urine Blood Negative (Negative) Urine Nitrite Negative (Negative) Urine Bilirubin 1+ H (Negative) Urine Urobilinogen Positive H (Negative) Ur Leukocyte Esterase Trace H (Negative) Urine WBC (Auto) 0-5 (0-5) /hpf Urine RBC (Auto) 11-20 H (0-2) /hpf U Hyaline Cast (Auto) 0-2 (0-2) /lpf U Epithel Cells (Auto) 0-2 (0-2) /hpf Urine Bacteria (Auto) None Seen (None Seen) Adenovirus (PCR) Not Detected (NotDetected) B. pertussis DNA (PCR) Not Detected (NotDetected) B.parapertussis DNA PCR Not Detected (NotDetected) C. pneumoniae DNA (PCR) Not Detected (NotDetected) Coronavirus OC43 (PCR) Not Detected (NotDetected) Coronavirus HKU1 (PCR) Not Detected (NotDetected) Coronavirus 229E (PCR) Not Detected (NotDetected) SARS-CoV-2 (PCR) Not Detected (NotDetected) Coronavirus NL63 (PCR) Not Detected (NotDetected) Human Metapneumovir PCR Not Detected (NotDetected) Influenza Type A (PCR) Not Detected (NotDetected) Influenza Type B (PCR) Not Detected (NotDetected) M. pneumoniae (PCR) Not Detected (NotDetected) Parainfluenza 1 (PCR) Not Detected (NotDetected) Parainfluenza 2 (PCR) Not Detected (NotDetected) Parainfluenza 3 (PCR) Not Detected (NotDetected) Parainfluenza 4 (PCR) Not Detected (NotDetected) RSV (PCR) Not Detected (NotDetected) Entero/Rhino (PCR) Not Detected (NotDetected) Administered Medications Discontinued Medications Acetaminophen (Acetaminophen 500 Mg Tab) 1,000 mg PO NOW ONE Stop: 07/29/23 20:31 Last Admin: 07/29/23 20:29 Dose: 1,000 mg Documented By: TONY Sodium Chloride (Nss) 1,000 mls @ 125 mls/hr IV .Q8H [facility] Stop: 07/29/23 22:14 Last Infusion: 07/29/23 20:42 Dose: Infused Documented By: Admin: 07/29/23 14:22 Dose: 125 mls/hr Documented By: JIMBO Sodium Chloride (Nss) 500 mls @ 999 mls/hr IV .Q31M [facility] Stop: 07/29/23 14:45 Last Infusion: 07/29/23 15:26 Dose: Infused Documented By: Admin: 07/29/23 14:22 Dose: 999 mls/hr Documented By: JIMBO Ceftriaxone Sodium (Rocephin) 2,000 mg in 50 mls @ 100 mls/hr IV NOW STA Stop: 07/29/23 18:26 Last Infusion: 07/29/23 19:24 Dose: Infused Documented By: Admin: 07/29/23 18:19 Dose: 100 mls/hr Documented By: TONY Doxycycline Hyclate 100 mg/ (Dextrose) 100 mls @ 50 mls/hr IV NOW STA Stop: 07/29/23 19:56 Last Admin: 07/29/23 19:44 Dose: 50 mls/hr Documented By: TONY Imaging Data Radiologist's Impression: Chest X-Ray 07/29/23 14:11 SINGLE VIEW CHEST CLINICAL HISTORY: Generalized weakness. FINDINGS: An AP, portable, upright chest radiograph is compared to study dated 04/06/2022 and correlated with chest CT dated 06/16/2022. A hiatal hernia is noted. A 2-lead cardiac pacemaker is unchanged in position. The heart is enlarged noting atherosclerotic calcification of the thoracic aorta. The pulmonary vasculature is noncongested. Chronic interstitial thickening is similar to previous. There is airspace consolidation throughout the right upper lobe. Scarring/atelectasis is seen at the lung bases. No large pleural effusion or pneumothorax is identified. The skeletal structures are osteopenic. The bony thorax is grossly intact. IMPRESSION: 1. Right upper lobe consolidation is typical for pneumonia. Clinical correlation will be required and radiographic follow-up to resolution is recommended. 2. Cardiomegaly and cardiac pacemaker without radiographic evidence of congestive failure. 3. Hiatal hernia. ACT 112: Negative or not required by law. Electronically signed by: Khang Almeida M.D. 07/29/2023 3:40 PM Discharge Plan Visit Data Chief Complaint: Weakness Stated Complaint: WEAKNESS ED Provider: Abisai Hess Discharge Problem: Pneumonia, Elevated troponin, Abnormal ECG Discharge Instructions Interventions: ED Discharge Assessment Last Done: 07/29/23 20:36
[2023-07-30 05:14] LABS: Basophils # (auto) 0.01 K/uL (0.00-0.20); Basophils % (auto) 0.1 %; Eosinophils # (auto) 0.04 K/uL (0.00-0.50); Eosinophils % (auto) 0.4 %; Hematocrit (blood only) 30.6 % (37.0-47.0); Hemoglobin 10.4 g/dl (12.0-16.0); Immature Granulocytes # (auto) 0.19 K/uL (0.01-0.20); Immature Granulocytes % (auto) 1.8 %; Lymphocytes # (auto) 1.33 K/uL (1.20-3.40); Lymphocytes % (auto) 12.4 %; Mean Corpuscular Hemoglobin 30.7 pg (25.0-34.0); Mean Corpuscular Volume 90.3 fL (80.0-100.0); Mean Platelet Volume 11.9 fL (9.4-12.4); Monocytes # (auto) 0.96 K/uL (0.11-0.59); Monocytes % (auto) 8.9 %; Neutrophils % (auto) 76.4 %; Platelet Count 166 K/uL (130-400); RDW Coefficient of Variation 13.3 % (11.5-14.5); RDW Standard Deviation 44.3 fL (36.4-46.3); Red Blood Count 3.39 M/uL (4.20-5.40); White Blood Count 10.73 K/ul (4.8-10.8)
[2023-07-30] MEDS: ACETAMINOPHEN 500 MG TAB PO SCH (05:36)
[2023-07-30 05:37] LABS: Albumin Globulin Ratio 1.3 (0.9-2); Albumin Level 3.2 gm/dl (3.4-5.0); BUN Creatinine Ratio 18.5 (10-20); Bilirubin,Total 0.8 mg/dl (0.2-1.0); Calcium 7.8 mg/dl (8.6-10.3); Creatinine Clr Calc Pharmacy 44.2 ml/min; Est GFR (African American) 76.2 ml/min; Est GFR (Non-African American) 65.8 ml/min; Globulin 2.5 gm/dl (2.5-4.0); Potassium 3.3 mmol/L (3.5-5.1); Total Protein 5.7 gm/dl (6.0-8.3)
[2023-07-30] MEDS: LEVOTHYROXINE SODIUM 50 MCG TABLET PO SCH (06:11)
--- NOTE | 2023-07-30 07:52 | XRay Report ---
LEFT SHOULDER 3 VIEWS HISTORY: Left shoulder pain. recent fall to left arm with subsequent shoulder COMPARISON: Left shoulder 07/14/2023. FINDINGS: There is no fracture or dislocation. Soft tissues are unremarkable. No radiopaque foreign b odies. Left-sided dual-chamber pacemaker is noted. The left clavicle is intact. IMPRESSION: No fractures. ACT 112: Negative or not required by law. Electronically signed by: Sandeep Gibbs M.D. 07/30/2023 7:51 AM
--- NOTE | 2023-07-30 07:52 | XRay Report ---
LEFT ELBOW 3 VIEWS HISTORY: fall on left arm with pain in upper left arm COMPARISON: Left elbow 07/14/2023. FINDINGS: There is no fracture or dislocation. Soft tissues are unremarkable. No radiopaque foreign b odies. Suboptimal evaluation for an elbow effusion. However, there is no definite elbow effusion. IMPRESSION: No fractures. ACT 112: Negative or not required by law. Electronically signed by: Sandeep Gibbs M.D. 07/30/2023 7:51 AM
[2023-07-30] MEDS: POTASSIUM CHLORIDE CRTAB 20 MEQ TABCR PO ONE (08:21)
[2023-07-30] MEDS ORDERED: NON-FORMULARY MEDICATION (Fluticasone-Umeclidin-Vilanter [Trelegy Ellipta] 100-62.5-25 mcg INH SCH (09:00)
[2023-07-30] MEDS: FLUTICASONE FUROATE 100MCG 14 PUFFS/INHALER INH SCH (09:53)
[2023-07-30] MEDS: FLUTICASONE PROPIONATE NA SPR 16 GM BTL NAE SCH (09:53)
[2023-07-30] MEDS: UMECLIDINIUM/VILANTEROL 62.5/25MCG 7 PUFFS/INHALER INH SCH (09:53)
[2023-07-30] MEDS: METOPROLOL SUCC 50MG EXT REL TAB PO SCH (09:54)
[2023-07-30] MEDS: CHOLECALCIFEROL 25 MCG (1000 UNITS) TAB PO SCH (09:54)
[2023-07-30] MEDS: DOXYCYCLINE HYCLATE 100 MG CAP PO SCH (09:54)
[2023-07-30] MEDS: PANTOprazole 40 MG TAB PO SCH (09:54)
[2023-07-30] MEDS: FAMOTIDINE 20 MG TAB PO SCH (09:54)
[2023-07-30] MEDS: ATORVASTATIN 40 MG TAB PO SCH (09:54)
[2023-07-30] MEDS: PARoxetine HCL 20 MG TAB PO SCH (09:54)
[2023-07-30] MEDS: CLOPIDOGREL BISULFATE 75 MG TAB PO SCH (09:54)
--- NOTE | 2023-07-30 14:27 | Hospitalist Progress Note ---
Date of Service July 30, 2023 Assessment & Plan (1) Pneumonia: (2) Chest discomfort: Plan: Patient is 88-year-old female with PMH HTN, dyslipidemia, CAD, asthma, bronchiectasis, chronic hypoxic respiratory failure on 2 L oxygen, SSS s/p pacemaker, CKD III, depression, anxiety, hypothyroidism and others listed below presented to ER with complaint of cough, chest discomfort x 2 days. Chills yesterday. Increased shortness of breath past couple days. Right upper Lobe Pneumonia Chronic hypoxic respiratory failure--on 2 L supplemental oxygen at baseline --CXR:Right upper lobe consolidation is typical for pneumonia. Clinical correlation will be required and radiographic follow-up to resolution is recommended. Cardiomegaly and cardiac pacemaker without radiographic evidence of congestive failure. -- BioFire negative --Blood cultures pending --Nasal MRSA negative --Procalcitonin 0.1 Continue Rocephin, doxycycline Nebs as needed Continue Incentive spirometry, flutter valve Hypokalemia Replace and monitor Atypical chest pain Likely musculoskeletal EKG showed T wave inversions seen anterolateral leads--also noted on prior EKG Troponin elevation--flat Echo pending Denies any chest pain today, reports left shoulder pain which she admits to have fell weeks ago Will consider cardiology evaluation if echo abnormal (3) Elevated troponin: (4) CAD (coronary artery disease): Plan: History 09/10/2021 echo: EF: 65-70%, grade 1 diastolic dysfunction, moderate mitral valve annular calcification and thickening of mitral valve, no mitral stenosis, mild aortic valve sclerosis without stenosis History moderate mid LAD obstruction via coronary CT in 2007, history of abnormal nuclear stress testing 05/18 and patient denied heart cath and is being managed medically Patient reports past 2 days with diffuse anterior chest discomfort. Has been having ongoing left shoulder pain for the past several weeks after fall Continue Plavix, atorvastatin, metoprolol succinate (5) Bronchiectasis: Plan: Bronchiectasis, asthma Continue chronic 2 L oxygen supplementation Continue home inhalers, Xopenex as needed (6) Shoulder pain, left: Plan: Left shoulder pain since fall weeks ago Likely musculoskeletal in origin Seen in ER after fall 07/14/23 -- Left shoulder x-ray/:No fractures. -- Left elbow x-ray:No fractures. Pain control (7) Microscopic hematuria: Plan: UA with 11-20 RBC Will need further outpatient workup and follow up (8) CKD (chronic kidney disease), stage III: Plan: Creatinine at baseline Monitor renal functions, avoid nephrotoxic agents when possible (9) Hypertension: Plan: Stable Continue amlodipine, metoprolol succinate Resume HCTZ as able (10) Anxiety and depression: Plan: Continue buspirone, paroxetine (11) SSS (sick sinus syndrome): Plan: S/p pacemaker Pacemaker interrogation (12) Hypothyroidism: Plan: Continue levothyroxine DVT Px Heparin SQ Code Status Full Code Admission and Anticipated Discharge Date Admission Date: July 29, 2023 Subjective Patient is seen and examined at bedside States feeling better today Cough, dyspnea improving Reports left shoulder pain No other complaints Saturating well on 2 L of supplemental oxygen Denies any chest pain, nausea, vomiting, abdominal pain, dizziness Review of Systems Review of Systems: All systems reviewed & are unremarkable except as noted in Subjective Physical Exam Physical Exam: Physical Exam: Vitals signs as noted above General Appearance:Moderately built and nourished, no apparent distress, Elderly Head: normocephalic, Atraumatic Eyes: normal inspection, EOMI Neck: supple, Trachea midline Respiratory/Chest: Normal breath sounds, scattered wheezing, No accessory muscle use Cardiovascular: S1, S2, + Soft murmur Abdomen/GI:Soft, Non tender, Bowel sounds present Extremities/Musculoskeletal:normal inspection, 1+edema Neurologic/Psych:AAOX3, grossly no focal neurological deficits, +tremor (Chronic per Pt) Skin: normal color, warm Results & Data Results & Data Vital Signs (Past 12 Hours) Vital Signs Temp Pulse Pulse Resp BP BP Pulse Ox 07/30/23 11:48 70 18 168/91 H 96 07/30/23 08:35 36.6 C 62 22 134/80 91 07/30/23 07:21 82 07/30/23 03:00 62 19 124/60 95 O2 Del Method O2 Flow Rate 07/30/23 11:48 Nasal Cannula 2 07/30/23 08:35 Room Air 07/30/23 07:21 07/30/23 03:00 Laboratory Results Short CBC 07/29/23 07/30/23 Range/Units 14:18 04:08 WBC 14.72 H 10.73 (4.8-10.8) K/ul Hgb 12.9 10.4 L (12.0-16.0) g/dl Hct 39.7 30.6 L (37.0-47.0) % Plt Count 204 166 (130-400) K/uL BMP 07/29/23 07/30/23 14:18 04:08 Sodium 136 137 Potassium 3.7 3.3 L Chloride 101 107 Carbon Dioxide 25 23 BUN 15 15 Creatinine 0.98 0.81 Glucose 128 H 104 H Calcium 9.3 7.8 L Liver Function 07/29/23 07/30/23 Range/Units 14:18 04:08 Total Bilirubin 1.5 H 0.8 D (0.2-1.0) mg/dl AST 18 17 (13-39) U/L ALT 15 11 (7-52) U/L Alkaline Phosphatase 96 70 (34-104) U/L Albumin 4.3 3.2 L (3.4-5.0) gm/dl Urine 07/29/23 Range/Units 15:03 Urine Color Dark Yellow Urine Appearance Clear (Clear) Urine pH 6.0 (4.5-7.5) Ur Specific [place] 1.026 (1.000-1.030) Urine Protein 1+ H (Negative) Urine Glucose (UA) Negative (Negative) (5) Bronchiectasis Bronchiectasis type: uncomplicated Qualified Code(s): J47.9 - Bronchiectasis, uncomplicated
[2023-07-30] MEDS: cefTRIAXone SODIUM 2,000 MG/50 ML BAG IV SCH (18:40)
[2023-07-30] MEDS: amLODIPine BESYLATE 5 MG TAB PO ONE (20:28)
[2023-07-30] MEDS: DICLOFENAC SOD 1% GEL 100 GM TUBE EXT PRN (21:07)
--- NOTE | 2023-07-30 22:31 | Electrocardiogram Report ---
Test Reason : Blood Pressure : / mmHG Vent. Rate : 069 BPM Atrial Rate : 069 BPM P-R Int : 230 ms QRS Dur : 132 ms QT Int : 440 ms P-R-T Axes : 000 083 -33 degrees QTc Int : 471 ms Atrial-paced rhythm with prolonged AV conduction Right bundle branch block T wave abnormality, consider inferolateral ischemia Abnormal ECG When compared with ECG of 06-APR-2022 16:09, Electronic atrial pacemaker has replaced Sinus rhythm T wave inversion more evident in Inferior leads T wave inversion more evident in Anterior leads Confirmed by Morgan Almazan ([id number]) on 07/30/2023 10:31:23 PM Referred By: Confirmed By:Morgan Almazan
--- OUTSIDE RECORDS SUMMARY | 2023-07-31 01:50 | External Medical Summary | Summary of Care ---
Author Name Unknown Organization [facility] Address [address] [place] [address] Phone [phone] Care Team Providers Care Professional Athlete Name Role Phone Heather Harper MD Primary Care Provider Encounter Details Date Type Department Care Team (Late st Contact Info) Description 07/26/2023 Result Scan Unspecified Department Jordi Caceres, DO [address] [place] [address] <No scans attached> Allergies Active Allergy Reactions Criticality Noted Date Comments Iodinated Contrast Media 10/22/2009 Ivp Dye Medium 09/22/2004 Nsaids 07/11/2000 GI upset Other - Drugs 12/12/2003 gel used for stress test pt.developed hives Primidone 10/20/2003 Causes nausea & vertigo Sertraline 07/11/2000 zoloft dizziness vomiting Sulfa Antibiotics 07/11/2000 documented as of this encounter (statuses as of 07/26/2023) Medications Medication Sig Dispensed Refills Start Date End Date Status Cetirizine HCl 5 MG Oral TabletIndications:P ost-nasal drip Take by mouth 1 Tablet in the morning. 30 Tablet 11 05/12/2021 Active Trelegy Ellipta 100-62.5-25 MCG/INH Aerosol Powder Breath Activated 0 08/11/2021 Active Levalbuterol Tartrate 45 MCG/ACT Inhalation Aerosol (Xopenex Hfa)Indications:Mod erate persistent asthma, unspecified whether complicated Inhale 1 Puff by mouth every 4 hours as needed for Wheezing. 15 g 12 02/28/2022 Active PARoxetine HCl 20 MG Oral Tablet (pAXil)Indications: Generalized anxiety disorder TAKE 1 TABLET IN THE MORNING 90 Tablet 3 09/07/2022 Active Meclizine HCl 12.5 MG Oral Tablet (Antivert)Indicatio ns:Dizziness Take 1 Tablet by mouth 3 times a day as needed for Dizziness. 30 Tablet 1 09/09/2022 Active amLODIPine Besylate 2.5 MG Oral Tablet (Norvasc)Indication s:HTN, goal below 140/90 TAKE 1 TABLET IN THE MORNING 90 Tablet 3 10/01/2022 Active Omeprazole 40 MG Oral Capsule Delayed Release (PriLOSEC) Take 1 Capsule by mouth in the morning. 0 Active Famotidine 20 MG Oral Tablet (Pepcid) TAKE 1 TABLET IN THE MORNING 90 Tablet 3 12/03/2022 Active metroNIDAZOLE 1 % External Gel (Metrogel)Indicatio ns:Rosacea Apply topically to affected area 2 times a day. To face. 60 g 0 12/30/2022 Active hydroCHLOROthiazide 25 MG Oral Tablet (Hydrodiuril)Indica tions:HTN, goal below 140/90 Take one tablet by mouth 3 days per week 39 Tablet 3 04/10/2023 Active Clopidogrel Bisulfate 75 MG Oral Tablet (pLAVix) TAKE 1 TABLET IN THE MORNING 90 Tablet 3 04/26/2023 Active Metoprolol Succinate ER 50 MG Oral Tablet Extended Release 24 Hour (toPROL XL)Indications:Esse ntial tremor Take 1 Tablet by mouth in the morning. 90 Tablet 3 05/12/2023 Active Fluticasone Propionate 50 MCG/ACT Nasal Suspension (Flonase)Indication s:Moderate persistent asthma, unspecified whether complicated Administer 1 [place] into each nostril in the morning. 15.8 mL 5 05/12/2023 Active busPIRone HCl 5 MG Oral Tablet (Buspar)Indications :Generalized anxiety disorder TAKE 1 TABLET TWICE A DAY NEEDED FOR ANXIETY 180 Tablet 3 06/27/2023 Active Atorvastatin Calcium 80 MG Oral Tablet (Lipitor)Indication s:Dyslipidemia, goal LDL below 70 Take 1 Tablet by mouth in the morning. 90 Tablet 3 06/27/2023 Active Levothyroxine Sodium 50 MCG Oral Tablet (Levoxyl) TAKE 1 TABLET DAILY FIRST THING IN THE MORNING AT LEAST 30 MINUTES PRIOR TO BREAKFAST OR OTHER MEDICATIONS 90 Tablet 1 07/26/2023 Active documented as of this encounter (statuses as of 07/26/2023) Active Problems Problem Noted Date Diagnosed Date Bronchiectasis without complication 05/18/2022 Benign hypertension with stage 3b chronic kidney disease 08/04/2020 Overview: Per CKD protocol Stage 3b chronic kidney disease 04/09/2020 Degenerative disc disease, cervical 12/26/2019 Secondary hyperparathyroidism 09/18/2018 MCI (mild cognitive impairment) with memory loss 09/18/2018 Current moderate episode of major depressive disorder without prior episode 05/11/2018 Essential tremor 05/08/2017 Hx of nonmelanoma skin cancer 07/18/2012 Overview: R mario Castro, bx 12/2011, cryo 06/2012 Generalized anxiety disorder 04/25/2011 Dyslipidemia, goal LDL below 160 09/22/2009 ADVANCE DIRECTIVE INFORMATION 08/30/2004 Overview: refused information on this HTN, goal below 140/90 05/28/2004 Esophageal reflux 06/19/2003 ASTHMA, MODERATE PERSISTENT 06/19/2003 Overview: Per Provider. ASTHMA, COUGH VARIANT Osteoporosis 01/07/2002 Hypothyroidism Diaphragmatic hernia documented as of this encounter (statuses as of 07/26/2023) Resolved Problems Problem Noted Date Diagnosed Date Resolved Date Benign hypertension with CKD (chronic kidney disease) stage III 10/26/2016 08/06/2020 Overview: Per CKD protocol Depression with anxiety 12/14/201512/25 Costochondral chest pain 06/27/201402/2018 Fracture of transverse proce ss of thoracic vertebra 10/29/2012 10/26/2016 Anxiety state 10/10/2012 10/26/2016 KIDNEY DZ,CHRONIC (GFR 30-59) STAGE III 10/15/2009 06/25/2020 Overview: Per CKD Protocol, #1 Pes anserinus tendinitis 10/01/200904/2016 Ptosis of eyelid 09/11/2009 10/26/2016 Dermatochalasis 09/11/2009 10/26/2016 Headache 08/18/2003 05/11/2018 Overview: ICD-10 update of inactive term Cough 06/19/2003 03/25/2008 Asthma with severity to be determined 06/19/2003 05/17/2011 Overview: ICD-10 update of inactive term Olecranon bursitis 11/14/2002 2 SEDENTARISM 01/07/2002 10/26/2016 Motion sickness 01/07/2002 10/26/2016 Need for prophylactic hormon e replacement therapy (postmenopausal) 01/05/2018 Allergic rhinitis 06/25/2020 BENIGN PARXYSMAL VERTIGO 04/2016 Labyrinthitis, unspecified 0 10/26/2016 Chronic sinusitis 06/25/2020 documented as of this encounter (statuses as of 07/26/2023) Immunizations Name Administration Dates Next Due COVID-19 mRNA, LNP-s, No Pre serve, 2-Dose Series (Moderna) 06/16/2020,05/19/2020 COVID-19 mRNA, LNP-s, PF, 18 + or 6-11Yrs (Moderna) 09/07/2021 COVID-19, mRNA, LNP-s, PF, B ooster, 100mcg/0.5mg (Moderna) 02/02/2021 H1N1 2009 Influenza, IM 04/24/2009 Pneumococcal Conjugate Vacc, 13 Valent (Prevnar) 10/16/2015 Pneumococcal Polysaccharide PPV23 (Pneumovax) 04/24/2009 Season Influenza, Quad, PF, Adjuvanted, 65+ Yrs, IM (FLUAD) 12/28/2019 Seasonal Influenza Virus Vac cine, Unspecified Formulation 01/05/2018,01/02/2017,02/01/2016,11/26,01/04/2013,12/14/2011,12/29/19 11,01/20/2010,12/15/2008,01/09/2008,1 ,01/05/2006,01/12/2005,02/18 Seasonal Influenza, PF, 6 M & above, IM , (FluLaval or Fluzone) 01/13/2023,01/05/2018,01/02/2017 Seasonal Influenza, Quadriva lent Hd (Fluzone Hd) 12/30/2020 Seasonal Influenza, Quadriva lent Hd, 65+ Yrs 12/30/2020,12/28/2019,01/24/2019 Seasonal Influenza, Quadriva lent, No Preserve, IM 02/01/2016,01/02/2015 01/03/2016 Seasonal Influenza, Split, I IV3, With Preserve, Inj 12/23/2013,01/04/2013,12/14/2011,06/2010,01/20/2010,12/15/2008,01/09/20 08,01/01/2007,01/05/2006 12/23/2014 Seasonal Influenza, Trivalen t, Adjuvanted, 65+ yrs 02/24/2022,01/24/2019 TD - Tetanus/Diptheria (ADULT) 01/14/2008 TD, Preservative Free 01/14/2008 TDAP (age 10 and older)(Boostrix) 10/15/2018 Varicella Zoster Vaccine (Adult) 07/21/2009 Zoster Vaccine Recombinant (Shingrix) ,05/12/2021,11/30/2018,08/26 documented as of this encounter Social History Tobacco Use Types Packs/Day Years Used Date Smoking Tobacco: Never Smokeless Tobacco: Never Comments:Passive smoke expos ure Alcohol Use Standard Drinks/Week Comments Yes 0 (1 standard drink = 0.6 oz pur e alcohol) occ PHQ-2 Answer Date Recorded PHQ Adult Total Score 0 06/25/2020 Hunger Vital Sign Answer Date Recorded Worried About Running Out of Food in the Last Ye ar Never true 01/24/2019 Ran Out of Food in the Last Year Never true 01/24/2019 Sex and Gender Information Value Date Recorded Sex Assigned at Female 07/19/2018 1:46 PM EDT Gender Identity Female 07/19/2018 1:46 PM EDT Sexual Orientation Straight 07/19/2018 1: 46 PM EDT Job Start Date Occupation Industry Not on file Not on file Not on file documented as of this encounter Functional Status Functional Status Response Date of Assess ment Are you deaf or do you have serious difficulty h earing? No 03/08/2023 Are you blind or do you have serious difficulty seeing, even when wearing glasses? No 03/08/2023 Do you have serious difficul ty walking or climbing stairs? (5 years old or older) No 03/08/2023 Do you have difficulty dress ing or bathing? (5 years old or older) No 03/08/2023 Because of a physical, menta l, or emotional condition, do you have difficulty doing errands alone such as visiting a doctor s office or shopping? (15 years old or older) No 03/08/20 Cognitive Status Response Date of Assessm ent Because of a physical, menta l, or emotional condition, do you have serious difficulty concentrating, remembering, or making decisions? (5 years old or older) No 03/08/2023 documented as of this encounter Plan of Treatment Upcoming Encounters Date Type Department Care Team (Late st Contact Info) Description 10/23/2023 11:00 AM EDT Office Visit Cardiology, [facility] [address] [address] Aniya Hernandez PA-C [address] [place] [address] 11/03/2023 11:00 AM EDT Office Visit Dermatology [facility] [address] [place] [address] Pankaj Ortiz MD [address] [place] [address] 11/10/2023 11:40 AM EDT Office Visit Family Practice [facility] [address] [address] Heather Harper MD [address] [address] Health Maintenance Due Date Last Done Comments *BISPHONATE OR OTHER ACCEPTABLE MEDICATION NEEDED FOR OSTEOPOROSIS (REFER TO SMARTSET #1146) 2020 COVID-19 Vaccine (5 - 2023-24 season) 2022 09/07/2021, 02/02/2021, 06/16/2020, Additional history exists CKD HGB USE SMARTSET 28205 11/05/202311/04, 11/04/2022, 03/25/2022, Additional history exists TSH 11/05/2023 11/04/2022, 04/28, 02/07/2022, Additional history exists Albumin/Creatinine Ratio 04/10/2024 024, 04/09/2020, 05/19/2017, Additional history exists CKD PHOS USE SMARTSET 77859 04/10/202403/27, 11/09/2020, 09/25/2019, Additional history exists DXA Scan 03/30/2025 03/30/2023, 10/2018, 07/06/2015, Additional history exists DTaP,Tdap,and Td Vaccines (2 - Td or Tdap) 10/15/2028 10/15/2018, 01/14/2008, 01/14/2008 VITAMIN D LEVEL ONCE IN A LIFETIME-USE SMARTSET# [id number] Completed 02/12/2014, 03/29/2012, 05/13/2011, Additional history exists Pneumococcal Vaccine: 65+ Years Completed 10/16/2015, 04/24/2009, 11/29/2000 Zoster Vaccines Completed 02/24/2022, 04/27, 11/30/2018, Additional history exists Influenza Vaccine (FLU shot) Completed , 02/24/2022, 12/30/2020, Additional history exists GARDASIL-HPV IMMUNIZATION SERIES Aged Out No longer eligible based on patient's age to complete this topic Hepatitis B Aged Out No longer eligi ble based on patient's age to complete this topic MENINGOCOCCAL (MENACTRA/MENVEO) Aged Out No longer eligible based on patient's age to complete this topic documented as of this encounter Medical Devices Not on filedocumented as of this encounter Procedures Procedure Name Priority Date/Time Associated Diagnosis Comments CARDIOLOGY SCANNED RESULT 07/26/2023 documented in this encounter Results * CARDIOLOGY SCANNED RESULT (07/26/2023) 07/26/2023 Jordi Caceres DO OTHER documented in this encounter Care Teams Professional Athlete Relationship Specialty Start Date End Date Heather Harper MD [address] [place] [id number] PCP - General Internal Medicine 11/09/20 documented as of this encounter
--- OUTSIDE RECORDS SUMMARY | 2023-07-31 01:50 | External Medical Summary | Summary of Care ---
Author Name Unknown Organization [facility] Address [address] [place] [address] Phone [phone] Care Team Providers Care Extrusion Die Template Maker Name Role Phone Camilo Harper MD Primary Care Provider Reason for Visit * Reason Comments eRx-Medication Refill Encounter Details Date Type Department Care Team (Late st Contact Info) Description 07/25/[address] [facility] [address] [facility] ([place], [place]) [address] [address] Camilo Harper MD [address] [place] [address] Allergies Active Allergy Reactions Criticality Noted Date [...] Date Status Cetirizine HCl 5 MG Oral TabletIndication s:Post-nasal drip Take by mouth 1 Tablet in the morning. 30 Tablet 11 05/12/2021 Active Trelegy Ellipta 100-62.5-25 MCG/INH Aerosol Powder Breath Activated 0 08/11/2021 Active Levalbuterol Tartrate 45 MCG/ACT Inhalation Aerosol (Xopenex Hfa)Indications: Moderate persistent asthma, unspecified whether complicated Inhale 1 Puff by mouth every 4 hours as needed for Wheezing. 15 g 12 02/28/2022 Active PARoxetine HCl 20 MG Oral Tablet (pAXil)Indicatio ns:Generalized anxiety disorder TAKE 1 TABLET IN THE MORNING 90 Tablet 3 09/07/2022 Active Meclizine HCl 12.5 MG Oral Tablet (Antivert)Indica tions:Dizziness Take 1 Tablet by mouth 3 times a day as needed for Dizziness. 30 Tablet 1 09/09/2022 Active amLODIPine Besylate 2.5 MG Oral Tablet (Norvasc)Indicat ions:HTN, goal below 140/90 TAKE 1 TABLET IN THE MORNING 90 Tablet 3 10/01/2022 Active Omeprazole 40 MG Oral Capsule Delayed Release (PriLOSEC) Take 1 Capsule by mouth in the morning. 0 Active Famotidine 20 MG Oral Tablet (Pepcid) TAKE 1 TABLET IN THE MORNING 90 Tablet 3 12/03/2022 Active metroNIDAZOLE 1 % External Gel (Metrogel)Indica tions:Rosacea Apply topically to affected area 2 times a day. To face. 60 g 0 12/30/2022 Active hydroCHLOROthiaz cathy 25 MG Oral Tablet (Hydrodiuril)Ind ications:HTN, goal below 140/90 Take one tablet by mouth 3 days per week 39 Tablet 3 04/10/2023 Active Clopidogrel Bisulfate 75 MG Oral Tablet (pLAVix) TAKE 1 TABLET IN THE MORNING 90 Tablet 3 04/26/2023 Active Metoprolol Succinate ER 50 MG Oral Tablet Extended Release 24 Hour (toPROL XL)Indications:E ssential tremor Take 1 Tablet by mouth in the morning. 90 Tablet 3 05/12/2023 Active Fluticasone Propionate 50 MCG/ACT Nasal Suspension (Flonase)Indicat ions:Moderate persistent asthma, unspecified whether complicated Administer 1 [place] into each nostril in the morning. 15.8 mL 5 05/12/2023 Active busPIRone HCl 5 MG Oral Tablet (Buspar)Indicati ons:Generalized anxiety disorder TAKE 1 TABLET TWICE A DAY NEEDED FOR ANXIETY 180 Tablet 3 06/27/2023 Active Atorvastatin Calcium 80 MG Oral Tablet (Lipitor)Indicat ions:Dyslipidemi a, goal LDL below 70 Take 1 Tablet by mouth in the morning. 90 Tablet 3 06/27/2023 Active Levothyroxine Sodium 50 MCG Oral Tablet (Levoxyl) TAKE 1 TABLET DAILY FIRST THING IN THE MORNING AT LEAST 30 MINUTES PRIOR TO BREAKFAST OR OTHER MEDICATIONS 90 Tablet 1 07/26/2023 Active Levothyroxine Sodium 50 MCG Oral Tablet (Levoxyl) TAKE 1 TABLET DAILY FIRST THING IN THE MORNING AT LEAST 30 MINUTES PRIOR TO BREAKFAST OR OTHER MEDICATIONS 90 Tablet 3 09/07/2022 4 Discontinued documented as of this encounter (statuses as [...] No 03/08/2023 documented as of this encounter Miscellaneous Notes * Telephone Encounter - Vannesa Barrett RPh - 07/26/2023 10:46 AM EDT Signed Prescriptions: Disp Refills Levothyroxine Sodium 50 MCG Oral Tablet (L*90 Tab*1 Sig: TAKE 1 TABLET DAILY FIRST THING IN THE MORNING AT LEAST 30 MINUTES PRIOR TO BREAKFAST OR OTHER MEDICATIONSAuthorizing Provider: CAMILO HARPER User: VANNESA BARRETT documented in this encounter Plan of Treatment Upcoming Encounters Date Type Department Care Team (Late st Contact Info) Description 10/23/2023 11:00 AM EDT Office Visit Cardiology, [facility] [address] [address] Aniya Hernandez PA-C [address] [place] [place] [address] 11/03/2023 11:00 AM EDT Office Visit Dermatology [facility] [address] [facility] [place] [address] Pankaj Ortiz MD [address] [facility] [place] [address] 11/10/2023 11:40 AM EDT Office Visit Family Practice [facility] [address] [place] [address] Camilo Harper MD [address] [facility] [place] [address] Health Maintenance Due Date Last Done Comments *BISPHONATE OR OTHER ACCEPTABLE MEDICATION NEEDED FOR OSTEOPOROSIS (REFER TO SMARTSET #1146) 2020 COVID-19 Vaccine (2022- season) 2022 09/07/2021, 02/02/2021, 06/16/2020, Additional history exists CKD HGB USE SMARTSET 36721 11/05/202311/04, 11/04/2022, 03/25/2022, Additional history exists TSH 11/05/2023 11/04/2022, 04/28, 02/07/2022, Additional history exists Albumin/Creatinine Ratio 04/10/2024 024, 04/09/2020, 05/19/2017, Additional history exists CKD PHOS USE SMARTSET 47540 04/10/202403/27, 11/09/2020, 09/25/2019, Additional history exists DXA Scan 03/30/2025 03/30/2023, 10/2018, 07/06/2015, Additional history exists DTaP,Tdap,and Td Vaccines (2 - Td or Tdap) 10/15/2028 10/15/2018, 01/14/2008, 01/14/2008 VITAMIN D LEVEL ONCE IN A LIFETIME-USE SMARTSET# [id number] Completed 02/12/2014, 03/29/2012, 05/13/2011, Additional history exists [...] Not on filedocumented as of this encounter Care Teams Extrusion Die Template Maker Relationship Specialty Start Date End Date Camilo Harper MD [address] [address] PCP - General Internal Medicine 11/09/20 documented as of this encounter
[2023-07-31 06:44] LABS: Hematocrit (blood only) 32.6 % (37.0-47.0); Hemoglobin 10.6 g/dl (12.0-16.0); Mean Corpuscular Hemoglobin 30.3 pg (25.0-34.0); Mean Corpuscular Hgb Conc 32.5 g/dL (32.0-36.0); Mean Corpuscular Volume 93.1 fL (80.0-100.0); Mean Platelet Volume 12.2 fL (9.4-12.4); Platelet Count 175 K/uL (130-400); RDW Coefficient of Variation 13.8 % (11.5-14.5); RDW Standard Deviation 47.3 fL (36.4-46.3)
[2023-07-31 07:00] LABS: BUN Creatinine Ratio 13.9 (10-20); Calcium 7.9 mg/dl (8.6-10.3); Creatinine Clr Calc Pharmacy 34.1 ml/min; Est GFR (African American) 53.8 ml/min; Est GFR (Non-African American) 46.4 ml/min; Magnesium 1.8 mg/dl (1.7-2.4); Potassium 4.1 mmol/L (3.5-5.1)
[2023-07-31] MEDS: amLODIPine BESYLATE 5 MG TAB PO SCH (07:28)
--- NOTE | 2023-07-31 15:14 | Electrocardiogram Report ---
Test Reason : Blood Pressure : / mmHG Vent. Rate : 059 BPM Atrial Rate : 059 BPM P-R Int : 128 ms QRS Dur : 160 ms QT Int : 518 ms P-R-T Axes : 000 -14 099 degrees QTc Int : 512 ms AV dual-paced rhythm Abnormal ECG When compared with ECG of 29-JUL-2023 14:09, Ventricular pacing is now present Confirmed by David Gonzalez ([id number]) on 07/31/2023 3:13:39 PM Referred By: REFERRED SELF Confirmed By:David Gonzalez
--- NOTE | 2023-07-31 16:28 | Hospitalist Progress Note ---
Date of Service July 31, 2023 Assessment & Plan (1) Pneumonia: (2) Chest discomfort: Plan: Patient is 88-year-old female with PMH HTN, dyslipidemia, CAD, asthma, bronchiectasis, chronic hypoxic respiratory failure on 2 L oxygen, SSS s/p pacemaker, CKD III, depression, anxiety, hypothyroidism and others listed below presented to ER with complaint of cough, chest discomfort x 2 days. Chills yesterday. Increased shortness of breath past couple days. Right upper Lobe Pneumonia Chronic hypoxic respiratory failure--on 2 L supplemental oxygen at baseline --CXR:Right upper lobe consolidation is typical for pneumonia. Clinical correlation will be required and radiographic follow-up to resolution is recommended. Cardiomegaly and cardiac pacemaker without radiographic evidence of congestive failure. -- BioFire negative --Blood cultures no growth to date --Nasal MRSA negative --Procalcitonin 0.1 Continue Rocephin, doxycycline Nebs as needed Continue Incentive spirometry, flutter valve Clinically improving Saturating well on room air Likely discharge tomorrow if remains stable Hypokalemia Replace and monitor Atypical chest pain Likely musculoskeletal EKG showed T wave inversions seen anterolateral leads--also noted on prior EKG Troponin elevation--flat Echo: No regional wall motion abnormality Denies any chest pain Left shoulder pain resolved (3) Elevated troponin: (4) CAD (coronary artery disease): Plan: History 09/10/2021 echo: EF: 65-70%, grade 1 diastolic dysfunction, moderate mitral valve annular calcification and thickening of mitral valve, no mitral stenosis, mild aortic valve sclerosis without stenosis History moderate mid LAD obstruction via coronary CT in 2007, history of abnormal nuclear stress testing 05/18 and patient denied heart cath and is being managed medically Patient reports past 2 days with diffuse anterior chest discomfort. Has been having ongoing left shoulder pain for the past several weeks after fall Continue Plavix, atorvastatin, metoprolol succinate (5) Bronchiectasis: Plan: Bronchiectasis, asthma Continue chronic 2 L oxygen supplementation Continue home inhalers, Xopenex as needed (6) Shoulder pain, left: Plan: Left shoulder pain since fall weeks ago Likely musculoskeletal in origin Seen in ER after fall 07/14/23 -- Left shoulder x-ray/:No fractures. -- Left elbow x-ray:No fractures. Pain control Shoulder pain much improved (7) Microscopic hematuria: Plan: UA with 11-20 RBC Will need further outpatient workup and follow up (8) CKD (chronic kidney disease), stage III: Plan: Creatinine at baseline Monitor renal functions, avoid nephrotoxic agents when possible (9) Hypertension: Plan: Stable Continue amlodipine, metoprolol succinate Resume HCTZ (10) Anxiety and depression: Plan: Continue buspirone, paroxetine (11) SSS (sick sinus syndrome): Plan: S/p pacemaker Pacemaker interrogation (12) Hypothyroidism: Plan: Continue levothyroxine DVT Px Heparin SQ Code Status Full Code Admission and Anticipated Discharge Date Admission Date: July 29, 2023 Subjective Patient is seen and examined at bedside Subjectively feels well Reports only minimal cough Otherwise no complaints left shoulder pain much improved Off supplemental oxygen Denies any chest pain, nausea, vomiting, abdominal pain, dizziness Review of Systems Review of Systems: All systems reviewed & are unremarkable except as noted in Subjective Physical Exam Physical Exam: Physical Exam: Vitals signs as noted above General Appearance:Moderately built and nourished, no apparent distress, Elderly Head: normocephalic, Atraumatic Eyes: normal inspection, EOMI Neck: supple, Trachea midline Respiratory/Chest: Normal breath sounds, basal crackles, No accessory muscle use Cardiovascular: S1, S2, + Soft murmur Abdomen/GI:Soft, Non tender, Bowel sounds present Extremities/Musculoskeletal:normal inspection, 1+edema Neurologic/Psych:AAOX3, grossly no focal neurological deficits, +tremor (Chronic per Pt) Skin: normal color, warm Results & Data Results & Data Vital Signs (Past 12 Hours) Vital Signs Temp Pulse Pulse Pulse Resp BP Pulse Ox 07/31/23 15:00 65 07/31/23 14:47 36.7 C 76 16 161/67 H 93 07/31/23 12:36 36.9 C 67 17 124/64 91 07/31/23 08:50 36.7 C 66 17 152/72 H 93 07/31/23 08:00 07/31/23 06:59 61 O2 Del Method O2 Flow Rate 07/31/23 15:00 07/31/23 14:47 Room Air 07/31/23 12:36 Room Air 07/31/23 08:50 Room Air 07/31/23 08:00 Nasal Cannula 2 07/31/23 06:59 Laboratory Results Short CBC 07/31/23 Range/Units 05:07 WBC 9.80 (4.8-10.8) K/ul Hgb 10.6 L (12.0-16.0) g/dl Hct 32.6 L (37.0-47.0) % Plt Count 175 (130-400) K/uL BMP 07/31/23 05:07 Sodium 140 Potassium 4.1 D Chloride 108 H Carbon Dioxide 25 BUN 15 Creatinine 1.08 Glucose 105 H Calcium 7.9 L (5) Bronchiectasis Bronchiectasis type: uncomplicated Qualified Code(s): J47.9 - Bronchiectasis, uncomplicated
[2023-07-31] MEDS: hydroCHLOROthiazide 25 MG TAB PO SCH (16:47)
[2023-08-01 07:56] LABS: Calcium 8.7 mg/dl (8.6-10.3); Creatinine Clr Calc Pharmacy 36.8 ml/min; Est GFR (African American) 59.1 ml/min; Potassium 3.8 mmol/L (3.5-5.1)
[2023-08-01 08:38] LABS: Hemoglobin 11.8 g/dl (12.0-16.0); Mean Corpuscular Hemoglobin 30.4 pg (25.0-34.0); Mean Corpuscular Hgb Conc 33.7 g/dL (32.0-36.0); Mean Corpuscular Volume 90.2 fL (80.0-100.0); Mean Platelet Volume 11.5 fL (9.4-12.4); Platelet Count 229 K/uL (130-400); RDW Coefficient of Variation 13.6 % (11.5-14.5); Red Blood Count 3.88 M/uL (4.20-5.40); White Blood Count 11.39 K/ul (4.8-10.8)
[2023-08-01] MEDS ORDERED: MENTHOL-ZINC OXIDE 360 APPLN/120 GM TUBE EXT PRN (11:08)
[2023-08-01] MEDS: ADVANCED PROBIOTIC 625 MG CAPSULE PO SCH (11:39)
--- NOTE | 2023-08-01 17:35 | Hospitalist Progress Note ---
Date of Service August 01, 2023 Assessment & Plan (1) Pneumonia: (2) Chest discomfort: Plan: Patient is 88-year-old female with PMH HTN, dyslipidemia, CAD, asthma, bronchiectasis, chronic hypoxic respiratory failure on 2 L oxygen, SSS s/p pacemaker, CKD III, depression, anxiety, hypothyroidism and others listed below presented to ER with complaint of cough, chest discomfort x 2 days. Chills yesterday. Increased shortness of breath past couple days. Right upper Lobe Pneumonia Chronic hypoxic respiratory failure--on 2 L supplemental oxygen at baseline --CXR:Right upper lobe consolidation is typical for pneumonia. Clinical correlation will be required and radiographic follow-up to resolution is recommended. Cardiomegaly and cardiac pacemaker without radiographic evidence of congestive failure. -- BioFire negative --Blood cultures no growth to date --Nasal MRSA negative --Procalcitonin 0.1 Continue Rocephin, doxycycline Nebs as needed Continue Incentive spirometry, flutter valve Clinically improved Saturating well on room air Diarrhea Likely due to antibiotics Check stool for c diff Monitor volume status Add Imodium PRN if c diff negative Hypokalemia Replace and monitor Atypical chest pain Likely musculoskeletal EKG showed T wave inversions seen anterolateral leads--also noted on prior EKG Troponin elevation--flat Echo: No regional wall motion abnormality Denies any chest pain Left shoulder pain resolved (3) Elevated troponin: (4) CAD (coronary artery disease): Plan: History 09/10/2021 echo: EF: 65-70%, grade 1 diastolic dysfunction, moderate mitral valve annular calcification and thickening of mitral valve, no mitral stenosis, mild aortic valve sclerosis without stenosis History moderate mid LAD obstruction via coronary CT in 2007, history of abnormal nuclear stress testing 05/18 and patient denied heart cath and is being managed medically Patient reports past 2 days with diffuse anterior chest discomfort. Has been having ongoing left shoulder pain for the past several weeks after fall Continue Plavix, atorvastatin, metoprolol succinate (5) Bronchiectasis: Plan: Bronchiectasis, asthma Continue chronic 2 L oxygen supplementation Continue home inhalers, Xopenex as needed (6) Shoulder pain, left: Plan: Left shoulder pain since fall weeks ago Likely musculoskeletal in origin Seen in ER after fall 07/14/23 -- Left shoulder x-ray/:No fractures. -- Left elbow x-ray:No fractures. Pain control Shoulder pain much improved (7) Microscopic hematuria: Plan: UA with 11-20 RBC Will need further outpatient workup and follow up (8) CKD (chronic kidney disease), stage III: Plan: Creatinine at baseline Monitor renal functions, avoid nephrotoxic agents when possible (9) Hypertension: Plan: Stable Continue amlodipine, metoprolol succinate Resume HCTZ as able (10) Anxiety and depression: Plan: Continue buspirone, paroxetine (11) SSS (sick sinus syndrome): Plan: S/p pacemaker Pacemaker interrogation (12) Hypothyroidism: Plan: Continue levothyroxine DVT Px Heparin SQ Code Status Full Code Admission and Anticipated Discharge Date Admission Date: July 29, 2023 Subjective Patient is seen and examined at bedside No significant cough today States having multiple episodes of loose bowel movements today left shoulder pain continues to improve Denies any chest pain, nausea, vomiting, abdominal pain, dizziness Review of Systems Review of Systems: All systems reviewed & are unremarkable except as noted in Subjective Physical Exam Physical Exam: Physical Exam: Vitals signs as noted above General Appearance:Moderately built and nourished, no apparent distress, Elderly Head: normocephalic, Atraumatic Eyes: normal inspection, EOMI Neck: supple, Trachea midline Respiratory/Chest: Normal breath sounds, basal crackles, No accessory muscle use Cardiovascular: S1, S2, + Soft murmur Abdomen/GI:Soft, Non tender, Bowel sounds present Extremities/Musculoskeletal:normal inspection, 1+edema Neurologic/Psych:AAOX3, grossly no focal neurological deficits, +tremor (Chronic per Pt) Skin: normal color, warm Results & Data Results & Data Vital Signs (Past 12 Hours) Vital Signs Temp Pulse Pulse Resp BP Pulse Ox O2 Del Method 08/01/23 15:11 59 L 08/01/23 15:08 36.8 C 62 18 129/55 L 91 Room Air 08/01/23 11:28 37.0 C 73 18 146/75 H 94 Room Air 08/01/23 07:30 36.9 C 67 18 153/64 H 91 Room Air 08/01/23 07:07 60 Laboratory Results Short CBC 08/01/23 Range/Units 06:53 WBC 11.39 H (4.8-10.8) K/ul Hgb 11.8 L (12.0-16.0) g/dl Hct 35.0 L (37.0-47.0) % Plt Count 229 (130-400) K/uL BMP 08/01/23 06:53 Sodium 139 Potassium 3.8 Chloride 106 Carbon Dioxide 22 BUN 14 Creatinine 1.00 Glucose 113 H Calcium 8.7 (5) Bronchiectasis Bronchiectasis type: uncomplicated Qualified Code(s): J47.9 - Bronchiectasis, uncomplicated
[2023-08-02 08:26] LABS: Hemoglobin 11.5 g/dl (12.0-16.0); Mean Corpuscular Hemoglobin 30.5 pg (25.0-34.0); Mean Corpuscular Hgb Conc 33.8 g/dL (32.0-36.0); Mean Corpuscular Volume 90.2 fL (80.0-100.0); Mean Platelet Volume 11.1 fL (9.4-12.4); Platelet Count 237 K/uL (130-400); RDW Coefficient of Variation 13.5 % (11.5-14.5); RDW Standard Deviation 44.9 fL (36.4-46.3); Red Blood Count 3.77 M/uL (4.20-5.40); White Blood Count 8.12 K/ul (4.8-10.8)
[2023-08-02 09:09] LABS: BUN Creatinine Ratio 16.3 (10-20); Calcium 8.7 mg/dl (8.6-10.3); Creatinine Clr Calc Pharmacy 37.6 ml/min; Est GFR (African American) 60.5 ml/min; Est GFR (Non-African American) 52.2 ml/min; Potassium 3.7 mmol/L (3.5-5.1)
[2023-08-02] MEDS ORDERED: LOPERAMIDE HCL 2 MG CAP PO PRN (10:59)
--- NOTE | 2023-08-02 11:01 | Hospitalist Progress Note ---
Date of Service August 02, 2023 Assessment & Plan (1) Pneumonia: (2) Chest discomfort: Plan: 88-year-old female with PMH HTN, dyslipidemia, CAD, asthma, bronchiectasis, chronic hypoxic respiratory failure on 2 L oxygen, SSS s/p pacemaker, CKD III, depression, anxiety, hypothyroidism and others listed below presented to ER with complaint of cough, chest discomfort x 2 days. As well as increased SOB Right upper Lobe Pneumonia Chronic hypoxic respiratory failure--on 2 L supplemental oxygen at baseline --CXR:Right upper lobe consolidation is typical for pneumonia. Clinical correlation will be required and radiographic follow-up to resolution is re commended. Cardiomegaly and cardiac pacemaker without radiographic evidence of congestive failure. -- BioFire negative --Blood cultures no growth to date --Nasal MRSA negative --Procalcitonin 0.1 Continue Rocephin, doxycycline Nebs as needed Continue Incentive spirometry, flutter valve Currently on 2L NC (baseline) with sats in 92% Encourage activity Diarrhea Likely due to antibiotics Improving C diff negative Imodium prn Monitor electrolytes Atypical chest pain Likely musculoskeletal EKG showed T wave inversions seen anterolateral leads--also noted on prior EKG Troponin elevation--flat Echo: No regional wall motion abnormality Denies any chest pain Left shoulder pain resolved (3) Elevated troponin: (4) CAD (coronary artery disease): Plan: History 09/10/2021 echo: EF: 65-70%, grade 1 diastolic dysfunction, moderate mitral valve annular calcification and thickening of mitral valve, no mitral stenosis, mild aortic valve sclerosis without stenosis History moderate mid LAD obstruction via coronary CT in 2007, history of abnormal nuclear stress testing 05/18 and patient denied heart cath and is being managed medically Has been having ongoing left shoulder pain for the past several weeks after fall No chest pain today Continue Plavix, atorvastatin, metoprolol succinate (5) Bronchiectasis: Plan: Bronchiectasis, asthma Continue chronic 2 L oxygen supplementation Continue home inhalers, Xopenex as needed (6) Shoulder pain, left: Plan: Left shoulder pain since fall weeks ago Likely musculoskeletal in origin Seen in ER after fall 07/14/23 -- Left shoulder x-ray/:No fractures. -- Left elbow x-ray:No fractures. Pain control Shoulder pain much improved (7) Microscopic hematuria: Plan: UA with 11-20 RBC (8) CKD (chronic kidney disease), stage III: Plan: Creatinine at baseline Monitor renal functions, avoid nephrotoxic agents when possible (9) Hypertension: Plan: Stable Continue amlodipine, metoprolol succinate Resume HCTZ as able (10) Anxiety and depression: Plan: Continue buspirone, paroxetine (11) SSS (sick sinus syndrome): Plan: S/p pacemaker Pacemaker interrogation (12) Hypothyroidism: Plan: Continue levothyroxine DVT Px Heparin SQ Code Status Full Code I spent a total of 45 minutes coordinating, documenting and providing care for this patient excluding time spent in performance of separately billed services Admission and Anticipated Discharge Date Admission Date: July 29, 2023 Subjective Patient seen and examined. Reports feeling weak today. Reports mild dry cough. Reported some mild abdominal pain that lasted few minutes earlier this morning but has resolved. Reported diarrhea is improved Had one loose stool this morning. Denied hematochezia/melena Denied dysuria, freq, urgency, hematuria Physical Exam Constitutional: + well hydrated; no acute distress Eyes: PERRL, conjunctivae normal, anicteric sclerae ENMT: external ear and nose normal, oropharynx normal Respiratory: On nasal cannnula at 2L. Not in resp distress Scattered rhonchi Cardiovascular: Rate/Rhythm: regular rate and regular rhythm S1 S2 Gastrointestinal (Abdomen): normal bowel sounds, soft, nontender, no hepatosplenomegaly Musculoskeletal: no cyanosis or clubbing, extremities motor strength 5/5 Neurologic: PERRL, EOMI, accommodation nl, no face palsy, no dysarthria Psychiatric: A+Ox3, euthymic affect Results & Data Results & Data Vital Signs (Past 12 Hours) Vital Signs Temp Pulse Pulse Pulse Resp BP Pulse Ox 08/02/23 07:20 36.8 C 60 16 156/68 H 92 08/02/23 07:06 60 08/02/23 03:46 36.7 C 68 18 142/69 H 92 08/01/23 23:28 75 08/01/23 23:14 37.2 C 74 18 134/56 L 93 O2 Del Method O2 Flow Rate 08/02/23 07:20 Nasal Cannula 2 08/02/23 07:06 08/02/23 03:46 Nasal Cannula 2 08/01/23 23:28 08/01/23 23:14 Nasal Cannula 2 Laboratory Results Abnormal lab results 05/08/24 Range/Units 07:42 RBC 3.77 L (4.20-5.40) M/uL Hgb 11.5 L (12.0-16.0) g/dl Hct 34.0 L (37.0-47.0) % Glucose 102 H (70-99(Fasting)) mg/dl (5) Bronchiectasis Bronchiectasis type: uncomplicated Qualified Code(s): J47.9 - Bronchiectasis, uncomplicated
[2023-08-03 06:56] LABS: Hematocrit (blood only) 31.9 % (37.0-47.0); Hemoglobin 10.6 g/dl (12.0-16.0); Mean Corpuscular Hemoglobin 30.1 pg (25.0-34.0); Mean Corpuscular Hgb Conc 33.2 g/dL (32.0-36.0); Mean Corpuscular Volume 90.6 fL (80.0-100.0); Mean Platelet Volume 10.6 fL (9.4-12.4); Platelet Count 243 K/uL (130-400); RDW Coefficient of Variation 13.6 % (11.5-14.5); RDW Standard Deviation 45.4 fL (36.4-46.3); Red Blood Count 3.52 M/uL (4.20-5.40); White Blood Count 7.49 K/ul (4.8-10.8)
[2023-08-03 07:29] LABS: BUN Creatinine Ratio 20.2 (10-20); Calcium 8.1 mg/dl (8.6-10.3); Est GFR (African American) 63.7 ml/min; Est GFR (Non-African American) 54.9 ml/min; Magnesium 1.8 mg/dl (1.7-2.4); Phosphorus 3.3 mg/dl (2.5-4.9); Potassium 3.7 mmol/L (3.5-5.1)
--- NOTE | 2023-08-03 10:39 | Discharge Summary ---
Date of Service August 03, 2023 Admission HPI Per Admitting Provider Patient is 88-year-old female with PMH HTN, dyslipidemia, CAD, asthma, bronchiectasis, chronic hypoxic respiratory failure on 2 L oxygen, SSS s/p pacemaker, CKD III, depression, anxiety, hypothyroidism and others listed below presented to ER with complaint of cough, chest discomfort and left shoulder pain. History obtained from patient, inpatient and outpatient chart review. Patient reports she tripped and fell and was seen at [facility] ER 07/14/2023 and had negative xray of left shoulder, left elbow, left forearm and left wrist. Since that time patient been having left wrist pain, left shoulder pain, and right knee pain. Patient states right knee bruising is improving and feels a little bit less swollen. She feels like pain is improving as well. She has been able to move knee and ambulate without difficulty. Patient reports bilateral wrists and hands seem to have decreased pain and seem to be slightly improving. Her main concern is her left shoulder. Is still having pain with attempted range of motion. Reports limited range of motion of shoulder secondary to pain. She reports history left shoulder rotator cuff repair in the past. Patient states left shoulder has been painful and the past couple days has been having diffuse anterior chest aching. States last couple days with cough sometimes productive however has not looked at color of phlegm. Yesterday had chills. Did not take her temperature at home. Feels has been having more shortness of breath past couple of days. She reports chronic intermittent shortness of breath. Does not think she has had any increased wheezing. Denies any increased lower extremity edema. Denies ill contacts. Denies diaphoresis, N/V/D/C, RAM, dizziness, syncope, vision changes, neck pain, orthopnea, palpitations, hemoptysis, sore throat, choking, otalgia, rhinorrhea, abdominal pain, paresthesias, weakness, increased extremity edema, rashes, urinary symptoms. Admission Exam Per Admitting Provider General: no acute distress, WDWN Head: normocephalic, atraumatic Eyes: conjunctiva non-injected, anicteric ENT: normal inspection external ears, nose, mucous membranes moist Neck: supple, trachea midline Lungs: no respiratory distress on 2L O2 via NC, speaks in sentences. +rales RUL CV: RRR, no JVD, trace pretibial edema, no chest wall tenderness to palpation Abd: normal BS, soft, non-tender Ext: no cyanosis, no calf tenderness; LUE: No ecchymosis or edema. +tenderness to palpation anterior shoulder. Active ROM to approximately 90 degrees with flexion and abduction and causes tenderness. Full active ROM of elbow and wrist, distal pulses intact. Right knee: +edema and yellow/green ecchymosis, +tenderness to palpation anterior knee, Flexion and extension intact. Distal pulses intact. Neuro: A&O x 3, no focal deficits noted, normal affect Skin: warm, dry Principal Diagnosis Right upper Lobe Pneumonia Discharge Exam Constitutional + well hydrated; no acute distress Eyes PERRL, conjunctivae normal, anicteric sclerae ENMT external ear and nose normal, oropharynx normal Respiratory Not in resp distress No crackles Cardiovascular Rate/Rhythm: regular rate and regular rhythm Gastrointestinal (Abdomen) normal bowel sounds, soft, nontender, no hepatosplenomegaly Musculoskeletal no cyanosis or clubbing, extremities motor strength 5/5 Neurologic PERRL, EOMI, accommodation nl, no face palsy, no dysarthria Psychiatric A+Ox3, euthymic affect Discharge Data Allergies Allergy/AdvReac Type Severity Reaction Status Date / Time Iodinated Contrast Media Allergy Intermediate IV dye Verified 07/18/23 14:03 -hives NSAIDS (Non-Steroidal Allergy Unknown UNKNOWN Verified 07/18/23 14:03 Anti-Inflamma primidone Allergy Unknown UNKNOWN Verified 07/18/23 14:03 sertraline Allergy Unknown UNKNOWN Verified 07/18/23 14:03 Sulfa (Sulfonamide Allergy Unknown "SULFA" Verified 07/18/23 14:03 Antibiotics) ALLERGY Consultations 07/29/23 18:19 ED Decision to Admit Stat Hospital Course (1) Pneumonia: (2) Chest discomfort: 88-year-old female with PMH HTN, dyslipidemia, CAD, asthma, bronchiectasis, chronic hypoxic respiratory failure on 2 L oxygen, SSS s/p pacemaker, CKD III, depression, anxiety, hypothyroidism and others listed below presented to ER with complaint of cough, chest discomfort x 2 days. As well as increased SOB Right upper Lobe Pneumonia Chronic hypoxic respiratory failure--on 2 L supplemental oxygen at baseline --CXR:Right upper lobe consolidation is typical for pneumonia. Clinical correlation will be required and radiographic follow-up to resolution is recommended. Cardiomegaly and cardiac pacemaker without radiographic evidence of congestive failure. -- BioFire negative --Blood cultures no growth to date --Nasal MRSA negative --Procalcitonin 0.1 Completed 5 days of antibiotics inpatient Currently on 2L NC (baseline) Diarrhea Likely due to antibiotics Improved C diff negative Atypical chest pain Likely musculoskeletal EKG showed T wave inversions seen anterolateral leads--also noted on prior EKG Troponin mildly elevated on admission but flat Echo: No regional wall motion abnormality Resolved (3) Elevated troponin: (4) CAD (coronary artery disease): History 09/10/2021 echo: EF: 65-70%, grade 1 diastolic dysfunction, moderate mitral valve annular calcification and thickening of mitral valve, no mitral luis fernando nosis, mild aortic valve sclerosis without stenosis History moderate mid LAD obstruction via coronary CT in 2007, history of abnormal nuclear stress testing 05/18 and patient denied heart cath and is being managed medically Has been having ongoing left shoulder pain for the past several weeks after fall Continue Plavix, atorvastatin, metoprolol succinate (5) Bronchiectasis: Bronchiectasis, asthma Continue chronic 2 L oxygen supplementation Continue home inhalers, Xopenex as needed (6) Shoulder pain, left: Left shoulder pain since fall weeks ago Likely musculoskeletal in origin Seen in ER after fall 07/14/23 -- Left shoulder x-ray/:No fractures. -- Left elbow x-ray:No fractures. Pain control Shoulder pain much improved (7) Microscopic hematuria: UA with 11-20 RBC (8) CKD (chronic kidney disease), stage III: Creatinine at baseline Monitor renal functions, avoid nephrotoxic agents when possible (9) Hypertension: Continue home amlodipine, metoprolol succinate (10) Anxiety and depression: Continue buspirone, paroxetine (11) SSS (sick sinus syndrome): S/p pacemaker Pacemaker interrogation (12) Hypothyroidism: Continue levothyroxine Total Time Total Time Spent Total Time Spent (In Minutes): 35 Total Time Includes: Examination of the Patient, Discharge Planning and Medication Reconciliation Discharge Plan Discharge Items Patient Disposition: Home - Home Health Services Reason For Visit: PNEUMONIA Discharge Diagnosis: Pneumonia Activity: Resume your previous activity Non-emergency contact: Primary Care Provider Call non-emergency contact if: you have any medication questions and your symptoms worsen Follow-up/Referrals: Heather Harper MD [Primary Care Provider] - (Date & Time 08/07/2023 2:20 PM Provider Heather Harper MD Department Family Practice [facility] ) Diet: Heart Healthy Addtl Attending Provider Instructions: Mrs Ro You came to the hospital for cough and chest discomfort. You were evaluated and managed for pneumonia. You completed your antibiotics in the hospital. Please ensure follow up with your Family Doctor Pending Studies at Discharge: No Stand-Alone Forms: My [facility], Smoking Cessation Medications and DC Order Prescriptions: Continued famotidine [Acid Salt Manager (famotidine)] 20 mg tablet 20 mg PO DAILY Qty: 90 2RF (DME) Portable Oxygen [id number] Misc See Rx Instructions .Route Qty: 1 0RF Rx Instructions: Oxygen concentrator with portable tanks-2 L with exertion and when sleeping via n/c. Assess for portability. Length of need 99 years. Trelegy Ellipta 100-62.5-25 mcg blister with device 1 inh inhalation DAILY Qty: 3 3RF cholecalciferol (vitamin D3) 25 mcg (1,000 unit) capsule 2,000 unit PO DAILY (DME) Flutter Valve Device See Rx Instructions .ROUTE .MEDSUPPLY Qty: 1 0RF Rx Instructions: As directed amlodipine 2.5 mg tablet 2.5 mg PO BID Qty: 120 3RF buspirone 5 mg tablet 5 mg PO BID meclizine 12.5 mg tablet 12.5 mg PO TID PRN (Reason: Dizziness) fluticasone propionate 50 mcg/actuation spray,suspension 2 spray intranasal DAILY Qty: 15.8 2RF Rx Instructions: administer into each nostril paroxetine HCl 20 mg tablet 20 mg PO DAILY levothyroxine [Synthroid] 50 mcg tablet 50 mcg PO DAILYBB hydrochlorothiazide 25 mg tablet 25 mg PO Q2D clopidogrel 75 mg Tablet 75 mg PO QAM Qty: 30 0RF atorvastatin 80 mg tablet 80 mg PO DAILY omeprazole 40 mg Capsule,Delayed Release(Dr/Ec) 40 mg PO DAILY levalbuterol tartrate 45 mcg/actuation Hfa Aerosol Inhaler 1 inh INHALATION Q6H PRN (Reason: Shortness Of Breath Or Wheezing) metoprolol succinate 50 mg tablet extended release 24 hr 50 mg PO DAILY Discharge Orders: Discharge Order (Routine); Ordered 08/03/23 Ordered By: Honey Rocha Admission Data Admit Date/Time: 07/29/23 18:38 Attending Provider: Honey Rocha I. Admit Provider: Mahogany Pa Primary Care Provider: Heather Harper Other Providers: Mahogany Pa; Terence Eckert Other Interventions: Discharge Summary Assessment (RN) Last Done: 08/03/23 12:16
== END 2023-08-03 15:37 | disposition home health service (06) | DRG 194 ==
LOC: ED 13:17 → SUATTDRO 18:38 → EDINP 18:38 → 2W 20:36

== ENCOUNTER 2024-03-30 13:39 | Observation (INO) ==
--- OUTSIDE RECORDS SUMMARY | 2024-03-30 13:53 | External Medical Summary | Summary of Care ---
Author Name Unknown Organization [facility] Address [address] [place] [address] Phone [phone] Care Team Providers Care Rn Oncology Research Name Role Phone Heather Harper MD Primary Care Provider Encounter Details Date Type Department Care Team (Late st Contact Info) Description 03/08/2024 Telephone Family Practice [facility] [address] [place] [address] Heather Harper MD [address] [place] [address] Allergies Active Allergy Reactions Criticality Noted Date Comments Iodinated Contrast Media 10/22/2009 Ivp Dye Medium 09/22/2004 Nsaids 07/11/2000 GI upset Other - Drugs 12/12/2003 gel used for stress test pt.developed hives Primidone 10/20/2003 Causes nausea & vertigo Sertraline 07/11/2000 zoloft dizziness vomiting Sulfa Antibiotics 07/11/2000 documented as of this encounter (statuses as of 03/18/2024) Medications Cetirizine HCl 5 MG Oral TabletIndicatio ns:Post-nasal drip Take by mouth 1 Tablet in the morning. 30 Tablet 11 2 Active Trelegy Ellipta 100-62.5-25 MCG/INH Aerosol Powder Breath Activated 2 Active Levalbuterol Tartrate 45 MCG/ACT Inhalation Aerosol (Xopenex Hfa)Indications :Moderate persistent asthma, unspecified whether complicated Inhale 1 Puff by mouth every 4 hours as needed for Wheezing. 15 g 12 2 Active Meclizine HCl 12.5 MG Oral Tablet (Antivert)Indic ations:Dizzines s Take 1 Tablet by mouth 3 times a day as needed for Dizziness. 30 Tablet 1 3 Active amLODIPine Besylate 2.5 MG Oral Tablet (Norvasc)Indica tions:HTN, goal below 140/90 TAKE 1 TABLET IN THE MORNING 90 Tablet 3 3 Active Omeprazole 40 MG Oral Capsule Delayed Release (PriLOSEC) Take 1 Capsule by mouth in the morning. Active Clopidogrel Bisulfate 75 MG Oral Tablet (pLAVix) TAKE 1 TABLET IN THE MORNING 90 Tablet 3 4 Active Metoprolol Succinate ER 50 MG Oral Tablet Extended Release 24 Hour (toPROL XL)Indications: Essential tremor Take 1 Tablet by mouth in the morning. 90 Tablet 3 4 Active Fluticasone Propionate 50 MCG/ACT Nasal Suspension (Flonase)Indica tions:Moderate persistent asthma, unspecified whether complicated Administer 1 [place] into each nostril in the morning. 15.8 mL 5 4 Active busPIRone HCl 5 MG Oral Tablet (Buspar)Indicat ions:Generalize d anxiety disorder TAKE 1 TABLET TWICE A DAY NEEDED FOR ANXIETY 180 Tablet 3 4 Active Atorvastatin Calcium 80 MG Oral Tablet (Lipitor)Indica tions:Dyslipide benjamin, goal LDL below 70 Take 1 Tablet by mouth in the morning. 90 Tablet 3 4 Active oxygen IN GAS Use 2 L/min(Oxygen) as directed at bedtime. Active traMADol HCl 50 MG Oral Tablet (Ultram)Indicat ions:Traumatic tear of left rotator cuff, unspecified tear extent, subsequent encounter Take 1 Tablet by mouth 2 times a day as needed for Pain, Severe. Acute left rotator cuff tear with rotator cuff arthropathy 30 Tablet 1 4 Active Additional Information Patient not taking.Reported on 02/14/2024 PARoxetine HCl 20 MG Oral Tablet (pAXil)Indicati ons:Generalized anxiety disorder TAKE 1 TABLET IN THE MORNING 90 Tablet 3 4 Active Famotidine 20 MG Oral Tablet (Pepcid) TAKE 1 TABLET IN THE MORNING 90 Tablet 3 4 Active Levothyroxine Sodium 50 MCG Oral Tablet (Levoxyl) TAKE 1 TABLET DAILY FIRST THING IN THE MORNING AT LEAST 30 MINUTES PRIOR TO BREAKFAST OR OTHER MEDICATIONS 90 Tablet 3 4 Active Amoxicillin 500 MG Oral Capsule (Amoxil)Indicat ions:Status post replacement of left shoulder joint Take 4 Capsules by mouth once for 1 dose. 1 hour before dental procedure 4 Capsule 3 4 03/16/20 24 documented as of this encounter (statuses as of 03/18/2024) Active Problems Problem Noted Date Diagnosed Date Microscopic hematuria 11/29/2023 Bronchiectasis without complication 05/18/2022 Benign hypertension with stage 3b chronic kidney disease 08/04/2020 Overview: Per CKD protocol Stage 3b chronic kidney disease 04/09/2020 Degenerative disc disease, cervical 12/26/2019 Secondary hyperparathyroidism 09/18/2018 MCI (mild cognitive impairment) with memory loss 09/18/2018 Current moderate episode of major depressive disorder without prior episode 05/11/2018 Essential tremor 05/08/2017 Hx of nonmelanoma skin cancer 07/18/2012 Overview (07/18/2012): R mario Castro, bx 12/2011, cryo 06/2012 Generalized anxiety disorder 04/25/2011 Dyslipidemia, goal LDL below 160 09/22/2009 HTN, goal below 140/90 05/28/2004 Esophageal reflux 06/19/2003 ASTHMA, MODERATE PERSISTENT 06/19/2003 Overview (05/17/2011): Per Provider. ASTHMA, COUGH VARIANT Osteoporosis 01/07/2002 Hypothyroidism Diaphragmatic hernia documented as of this encounter (statuses as of 03/18/2024) Resolved Problems Problem Noted Date Diagnosed Date Resolved Date Benign hypertension with CKD (chronic kidney disease) stage III 10/26/2016 08/06/2020 Overview: Per CKD protocol Depression with anxiety 12/14/201512/25 Costochondral chest pain 06/27/201402/2018 Fracture of transverse proce ss of thoracic vertebra 10/29/2012 10/26/2016 Anxiety state 10/10/2012 10/26/2016 KIDNEY DZ,CHRONIC (GFR 30-59) STAGE III 10/15/2009 06/25/2020 Overview (10/15/2009): Per CKD Protocol, #1 Pes anserinus tendinitis 10/01/200904/2016 Ptosis of eyelid 09/11/2009 10/26/2016 Dermatochalasis 09/11/2009 10/26/2016 ADVANCE DIRECTIVE INFORMATION 08/30/2004 01/29/2024 Overview (08/30/2004): refused information on this Headache 08/18/2003 05/11/2018 Overview (06/17/2015): ICD-10 update of inactive term Cough 06/19/2003 03/25/2008 Asthma with severity to be determined 06/19/2003 05/17/2011 Overview (07/06/2015): ICD-10 update of inactive term Olecranon bursitis 11/14/2002 2 SEDENTARISM 01/07/2002 10/26/2016 Motion sickness 01/07/2002 10/26/2016 Need for prophylactic hormon e replacement therapy (postmenopausal) 01/05/2018 Allergic rhinitis 06/25/2020 BENIGN PARXYSMAL VERTIGO 04/2016 Labyrinthitis, unspecified 0 10/26/2016 Chronic sinusitis 06/25/2020 documented as of this encounter (statuses as of 03/18/2024) Immunizations Name Administration Dates Next Due COVID-19 [...] 65+ Yrs, IM (FLUAD) 12/28/2019 Seasonal Influenza Vac., MDV , IM, 0.5 mL (Fluzone) 12/23/2013,01/04/2013,12/14/2011,06/2010,01/20/2010,12/15/2008,01/09/20 08,01/01/2007,01/05/2006 12/23/2014 Seasonal Influenza Virus Vac cine, Unspecified Formulation 01/05/2018,01/02/2017,02/01/2016,11/26,01/04/2013,12/14/2011,12/29/19 11,01/20/2010,12/15/2008,01/09/2008,1 ,01/05/2006,01/12/2005,02/18 Seasonal Influenza, PF, 6 M & above, IM , (FluLaval or Fluzone) 01/13/2023,01/05/2018,01/02/2017 Seasonal Influenza, Quadriva lent Hd (Fluzone Hd) 12/30/2020 Seasonal Influenza, Quadriva lent Hd, 65+ Yrs 12/30/2020,12/28/2019,01/24/2019 Seasonal Influenza, Quadriva lent, No Preserve, IM 02/01/2016,01/02/2015 01/03/2016 Seasonal Influenza, Trivalen t, Adjuvanted, 65+ YRS, PF, (Fluad) 02/24/2022,01/24/2019 TD - Tetanus/Diptheria (ADULT) 01/14/2008 TD, [...] in the Last Year Never true 01/24/2019 Comments No Sex and Gender Information Value Date Recorded Sex Assigned at Female 07/19/2018 1:46 PM EDT Legal Sex Female 5:07 AM EST Gender Identity Female 07/19/2018 1:46 PM EDT Sexual Orientation Straight 07/19/2018 1: 46 PM EDT 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 Answer Date of Assessment Author No 03/08/2023 8:00 AM Sam Gonzaleza D, MED ASSIST * Are you blind or do you have serious difficulty seeing, even when wearing glasses? Answer Date of Assessment Author No 03/08/2023 8:00 AM EST Sam Cartera D, MED ASSIST * Do you have serious difficulty walking or climbing stairs? (5 years old or older) Answer Date of Assessment Author No 03/08/2023 8:00 AM EST Sam Cartera D, MED ASSIST * Do you have difficulty dressing or bathing? (5 years old or older) Answer Date of Assessment Author No 03/08/2023 8:00 AM EST Sam Cartera D, MED ASSIST * Because of a physical, mental, or emotional condition, do you have difficulty doing errands alone such as visiting a doctors office or shopping? (15 years old or older) Answer Date of Assessment Author No 03/08/2023 8:00 AM EST Sam Cartera D, MED ASSIST documented as of this encounter Mental Status * Because of a physical, mental, or emotional condition, do you have serious difficulty concentrating, remembering, or making decisions? (5 years old or older) Answer Entry Date Author No 03/08/2023 8:00 AM EST Carter, C laudia D, MED ASSIST documented in this encounter Miscellaneous Notes * Telephone Encounter - Charlotte Reynoso MED ASSIST - 03/18/2024 9:30 AM EST Pt informed. * Telephone Encounter - Heather Harper MD - 03/16/2024 12:55 PM EST Rx sent. Please let patient know * Telephone Encounter - Charlotte Reynoso MED ASSIST - 03/14/2024 1:57 PM EST Pt states Dr. Alegria (ortho) told her a few weeks ago that she would need an antibiotic prior todental work. * Telephone Encounter - Heather Harper MD - 03/13/2024 4:38 PM EST Current guidelines do not recommend antibiotic prophylaxis before dental procedures for patients with joint replacement. Please confirm with patient - is this request coming from dentist or orthopedist? * Telephone Encounter - Ami Evans OSA - 03/08/2024 1:16 PM EST Pt is calling said bc she had shoulder surgery back in January 10 that she would need an antibiotic for the dentists. Pt is having a tooth pulled in mar. Please call pt back at [phone] documented in this encounter Plan of Treatment Upcoming Encounters Date Type Department Care Team (Late st Contact Info) Description 05/31/2024 11:40 AM EST Office Visit [address] [place] [address] Heather Harper MD [address] [place] [address] 06/07/2024 10:45 AM EDT Office Visit Dermatology [facility] [address] [facility] [address] [place], [place] [address] Pankaj Ortiz MD [address] [facility] [place], [place] [address] 08/07/2024 11:40 AM EDT Office Visit Family Practice [facility] [address] [place] [address] Heather Harper MD [address] [place] [address] 08/29/2024 1:30 PM EDT Office Visit Cardiology, [facility] [address] [place] [address] Gaston Dumont MD [address] [place] [address] Health Maintenance Due Date Last Done Comments *BISPHONATE OR OTHER ACCEPTABLE MEDICATION NEEDED FOR OSTEOPOROSIS (REFER TO SMARTSET #1146) 2020 Depression Monitoring 06/25/2021 06/25/2020 Adult Wellness Visit 02/10/2022 02/10/2021 Influenza Vaccine (FLU shot) (#1) 2023 01/13/2023, 02/24/2022, 12/30/2020, Additional history exists Albumin/Creatinine Ratio 04/10/2024 024, 04/09/2020, 05/19/2017, Additional history exists CKD PHOS USE SMARTSET 09194 04/10/202403/27, 11/09/2020, 09/25/2019, Additional history exists TSH 11/01/2024 11/02/2023, 10/25, 05/18/2022, Additional history exists CKD HGB USE SMARTSET 36241 01/10/202501/10, 11/02/2023, 11/04/2022, Additional history exists DXA Scan 03/30/2025 03/30/2023, 10/2018, 07/06/2015, Additional history exists DTap/Tdap Vaccines (2 - Td or Tdap) 10/15/2028 10/15/2018, 01/14/2008, 01/14/2008 VITAMIN D LEVEL ONCE IN A LIFETIME-USE SMARTSET# [id number] Completed 02/12/2014, 03/29/2012, 05/13/2011, Additional history exists Pneumococcal Vaccine: 65+ Years Completed 10/16/2015, 04/24/2009, 11/29/2000 COVID-19 Vaccine Discontinued 09/07/2021, 11/2020, 06/16/2020, Additional history exists Zoster Vaccines Completed 02/24/2022, 04/27, 11/30/2018, Additional history exists HPV (Gardasil) Vaccine Aged Out No lo nger eligible based on patient's age to complete this topic Hepatitis B Vaccine Aged Out No longe r eligible based on patient's age to complete this topic MENINGOCOCCAL (MENACTRA/MENVEO) Aged Out No longer eligible based on patient's age to complete this topic documented as of this encounter Medical Devices Not on filedocumented as of this encounter Visit Diagnoses Diagnosis Status post replacement of left shoulder joint- Primary documented in this encounter Care Teams Rn Oncology Research Relationship Specialty Start Date End Date Heather Harper MD [facility] [address] [place] [address] PCP - General Internal Medicine 11/09/20 documented as of this encounter
--- OUTSIDE RECORDS SUMMARY | 2024-03-30 13:53 | External Medical Summary | Summary of Care ---
Author Name Unknown Organization [facility] Address [address] [place] [address] Phone [phone] Care Team Providers Care Behavioral Health Clinician Name Role Phone Heather Harper MD Primary Care Provider Reason for Visit * Reason Onset Date Comments Med Request 03/29/2024 Encounter Details Date Type Department Care Team (Late st Contact Info) Description 03/29/2024 Telephone Family Practice [facility] [address] [place] [address] Heather Harper MD [address] [place] [address] Med Request Allergies Active Allergy Reactions Criticality Noted Date Comments Iodinated Contrast Media 10/22/2009 Ivp Dye Medium 09/22/2004 Nsaids 07/11/2000 GI upset Other - Drugs 12/12/2003 gel used for stress test pt.developed hives Primidone 10/20/2003 Causes nausea & vertigo Sertraline 07/11/2000 zoloft dizziness vomiting Sulfa Antibiotics 07/11/2000 documented as of this encounter (statuses as of 03/30/2024) Medications Cetirizine HCl 5 MG Oral TabletIndication s:Post-nasal [...] persistent asthma, unspecified whether complicated Administer 1 [place] into each nostril in the morning. 15.8 [...] Active traMADol HCl 50 MG Oral Tablet (Ultram)Indicati ons:Traumatic tear of left rotator cuff, unspecified tear extent, subsequent encounter Take 1 Tablet by mouth 2 times a day as needed for Pain, Severe. 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 Answer Date of Assessment Author No 03/08/2023 8:00 AM EST Raul C coletteudia D, MED ASSIST * Are you blind or do you have serious difficulty seeing, even when wearing glasses? Answer Date of Assessment Author No 03/08/2023 8:00 AM EST Sam Carter laudia D, MED ASSIST * Do you have serious difficulty walking or climbing stairs? (5 years old or older) Answer Date of Assessment Author No 03/08/2023 8:00 AM EST Carter C laudia D, MED ASSIST * Do you have difficulty dressing or bathing? (5 years old or older) Answer Date of Assessment Author No 03/08/2023 8:00 AM EST Carter C laudia D, MED ASSIST * Because of a physical, mental, or emotional condition, do you have difficulty doing errands alone such as visiting a doctors office or shopping? (15 years old or older) Answer Date of Assessment Author No 03/08/2023 8:00 AM EST Carter C laudia D, MED ASSIST documented as of this encounter Mental Status * Because of a physical, mental, or emotional condition, do you have serious difficulty concentrating, remembering, or making decisions? (5 years old or older) Answer Entry Date Author No 03/08/2023 8:00 AM EST Raul C laudia D, MED ASSIST documented in this encounter Miscellaneous Notes * Telephone Encounter - Maggie Colbert, box chipper - 03/29/2024 4:56 PM EST Pt thinks she pneumonia and would like a call back franny Suggest emergency service if she felt worse but she refused any urgent care or convenient care Thank you for your assistance Maggie Colbert Transition Assistant II [facility] 03/29/2024,4:57 PM documented in this encounter Plan of Treatment Upcoming Encounters Date Type Department Care Team (Late st Contact Info) Description 05/31/2024 11:40 AM EST [facility] [address] [place] [address] Heather Harper MD [address] [place] [address] 06/07/2024 10:45 AM EDT Office Visit Dermatology [facility] [address] [facility] [place] [address] Pankaj Ortiz MD [address] [facility] [place] [address] 08/07/2024 11:40 AM EDT [facility] [address] [place] [address] Heather Harper MD [address] [place] [address] 08/29/2024 1:30 PM EDT Office Visit Cardiology, [facility] [address] [place] [address] Gaston Dumont MD [address] [place] [address] Health Maintenance Due Date Last Done Comments *BISPHONATE OR OTHER ACCEPTABLE MEDICATION NEEDED FOR OSTEOPOROSIS (REFER TO SMARTSET #1146) 2020 Depression Monitoring 06/25/2021 06/25/2020 Adult Wellness Visit 02/10/2022 02/10/2021 Influenza Vaccine (FLU shot) (#1) 2023 01/13/2023, 02/24/2022, 12/30/2020, Additional history exists Albumin/Creatinine Ratio 04/10/2024 024, 04/09/2020, 05/19/2017, Additional history exists CKD PHOS USE SMARTSET 68720 04/10/202403/27, 11/09/2020, 09/25/2019, Additional history exists TSH 11/01/2024 11/02/2023, 10/25, 05/18/2022, Additional history exists CKD HGB USE SMARTSET 93074 01/10/202501/10, 11/02/2023, 11/04/2022, Additional history exists DXA Scan 03/30/2025 03/30/2023, 0710/2018, 07/06/2015, Additional history exists DTap/Tdap Vaccines (2 - Td or Tdap) 10/15/2028 10/15/2018, 01/14/2008, 01/14/2008 VITAMIN D LEVEL ONCE IN A LIFETIME-USE SMARTSET# [id number] Completed 02/12/2014, 03/29/2012, 05/13/2011, Additional history exists Pneumococcal Vaccine: 50+ Years Completed 10/16/2015, 04/24/2009, 11/29/2000 COVID-19 Vaccine [...] filedocumented as of this encounter Care Teams Behavioral Health Clinician Relationship Specialty Start Date End Date Heather Harper MD [address] [place] [address] PCP - General Internal Medicine 11/09/20 documented as of this encounter
--- NOTE | 2024-03-30 14:21 | Emergency Department Note ---
Impression & Plan Hypoxic, Anemia, Weakness ED Provider Note NAME: BRANDON RO AGE: 88 SEX: F : 1935 ARRIVES VIA: Walk-In INFORMANT: Patient ED PROVIDER(S): Miguel Angel Murphy DO CHIEF COMPLAINT: Weakness, fall HPI: Patient is an 88-year-old female with a past medical history of TIA, CVA, GERD, asthma, CKD and hypertension who presents to the ER following a fall on Monday when she hit her head. She notes since then she has been nauseated and very weak. Her friend who is present at bedside provides additional history and notes that she has not been leaving bed. She has had a cough for the past 2 days. No fevers. No chest pain or shortness of breath. No belly pain. No nausea, vomiting, or diarrhea. She does admit to left shoulder pain which has been present since the surgery. ADDITIONAL HISTORY OBTAINED: Per HPI Chronic Medical/Social Conditions Affecting Care: Per HPI PAST MEDICAL HISTORY:See Below PAST SURGICAL HISTORY:See Below FAMILY HISTORY:See Below SOCIAL HISTORY:See Below HOME MEDICATIONS:See Below ALLERGIES:See Below VITALS:See Below PHYSICAL EXAMINATION: GENERAL: alert, well appearing, well nourished, no distress, non-toxic HEAD: normal cephalic, bruising over the left parietal region of the head EYE EXAM: normal conjunctiva, PERRL and EOM's grossly intact OROPHARYNX: no exudate, no erythema, lips, buccal mucosa, and tongue normal and mucous membranes are moist EARS: TMs clear b/l NECK: supple, no nuchal rigidity, no adenopathy, non-tender CHEST: stable to compression anteriorly and posteriorly LUNGS: clear to auscultation. Normal chest wall mechanics HEART: no murmurs, S1 normal and S2 normal ABDOMEN: abdomen soft, non-tender, normo-active bowel sounds, no masses, no rebound or guarding. PELVIS: stable to compression anteriorly and posteriorly BACK: Back is symmetrical on inspection and there is no deformity, no midline tenderness, no CVA tenderness. UPPER EXTREMITIES: No tenderness on palpation of the left hand, wrist, forearm or distal humerus. Tenderness over the proximal humerus with bruising. Flexion-extension right shoulder elbow wrist and grasp intact. No tenderness on palpation. LOWER EXTREMITIES: full active and passive range of motion of all joints without tenderness to palpation NEURO EXAM: Normal sensorium, cranial nerves II-XII grossly intact, normal speech, no gross weakness of arms, no gross weakness of legs. GCS: 15. MEDICAL DECISION MAKING: Patient is an 88-year-old female who presents ER for above-stated complaint. Patient presents to the ER for a fall, weakness and hypoxia. IV was established and blood work was obtained. Labs show mild leukocytosis to 14,000. Mild anemia as well at 11 which is fairly consistent with previous. BMP with mild hyponatremia at 132. LFTs were unremarkable. Pro-Jesus at 0.24. UA with white cells, red cells, epithelial and +1 bacteria. Viral panel was negative. CT of the head cervical spine and face was unremarkable. Chest x-ray suggest some nodular Patte test to these which may be infectious. Patient was covered with IV Rocephin and oral azithromycin. Patient was updated at bedside discussed case with the hospitalist for further evaluation management and treatment with the weakness and upper respiratory symptoms without any focal infiltrate. Consults/Care Managements Discussions: Per [facility] Triage Nursing notes reviewed. Limited review of prior medical records performed Vital Signs: reviewed and remarkable for no significant abnormalities Differential diagnosis: Infection, dehydration, metabolic abnormality, hypo/hyperglycemia, electrolyte disturbance, anemia, hypoxia, cardiac sources, intracerebral event, toxicologic, neurologic, as well as other pathologies. ER treatment provided: See below Diagnostics interpreted by me include EKG and cardiac monitoring as listed below: -Cardiac Monitoring: An order was placed for continuous cardiac monitoring. The monitor shows a rate of 70 with paced rhythm. -ECG: Paced rhythm rate of 66 Right bundle branch block QTc 436 -Laboratory studies:Interpreted by me as stated above in MDM and shown below. Imaging studies: Xrays: As interpreted by me: Portable AP upright 1 view of the chest shows no focal infiltrate Chest x-ray per radiology shows subtle opacities CTs show: CT head face and cervical spine show no acute pathology Procedures:none Critical Care: I have personally spent 31 minutes of critical care time in the direct management of this patient. This includes bedside care, interpretation of diagnostic studies, and testing, discussion with consultants, patient, and family members, and other required patient management activities. This 31 minutes is in excess of all separately billable procedures. 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 Dysphagia Abnormal ECG (Acute) Elevated troponin (Acute) Pneumonia (Acute) Microscopic hematuria Shoulder pain, left Pacemaker SSS (sick sinus syndrome) Anxiety and depression CAD (coronary artery disease) Elevated troponin Chest discomfort Pneumonia Weakness of voice Dyspnea on exertion Chronic cough Bronchiectasis Vitamin D deficiency TIA (transient ischemic attack) Changes in vision (Acute) History of recent stroke (Acute) CVA (cerebral vascular accident) JUVENAL (acute kidney injury) DVT prophylaxis Acute confusion (Acute) Facial paresthesia (Acute) Hand paresthesia (Acute) Acute loss of vision (Acute) Arterial branch occlusion of retina (Acute) Chronic rhinitis Sensorineural hearing loss of both ears BPPV (benign paroxysmal positional vertigo) Imbalance Dysphonia LPRD (laryngopharyngeal reflux disease) Systolic murmur Cough Dyspnea on exertion Hip pain, left Chronic rhinitis Hypothyroidism Depression Asthma CKD (chronic kidney disease), stage III Hypertension (Acute) Medical History Essential tremor Hypercholesterolemia Osteoporosis Secondary hyperparathyroidism GERD (gastroesophageal reflux disease) Heart block Vitamin D deficiency Surgical History Hx of blepharoplasty Hx of repair of rotator cuff Hx of tonsillectomy History of breast lump removal Family History Father Hypertension Heart disease Mother Hypertension Asthma Other Cancer Diabetes Kidney disease Lung disease No family history of adverse response to anesthesia No family history of bleeding disorder Social History Smoking Status: Never smoker Second Hand Exposure: No; Do You Dip or Chew Tobacco: No; Hx Alcohol Use: Yes Alcohol type: wine Alcohol Intake Frequency Comment: occasional Hx Substance Use: No Preferred Language: Maori Communication Ability: Effective Thread Marker Required: No Beliefs That Will Affect Care: None marital status: / Current Living Situation: Alone Current Living Situation Comment: [facility] current occupational status: retired Feels Safe at Home: Yes Assistive Devices: Oxygen - at Night Allergies Allergies Allergy/AdvReac Type Severity Reaction Status Date / Time Iodinated Contrast Media Allergy Intermediate IV dye Verified 07/18/23 14:03 -hives NSAIDS (Non-Steroidal Allergy Unknown UNKNOWN Verified 07/18/23 14:03 Anti-Inflamma primidone Allergy Unknown UNKNOWN Verified 07/18/23 14:03 sertraline Allergy Unknown UNKNOWN Verified 07/18/23 14:03 Sulfa (Sulfonamide Allergy Unknown "SULFA" Verified 07/18/23 14:03 Antibiotics) ALLERGY Home Meds Home Medications Medication Instructions Recorded Confirmed buspirone 5 mg tablet 5 mg PO BID 06/01/21 03/30/24 meclizine 12.5 mg tablet 12.5 mg PO TID PRN Dizziness 06/01/21 03/30/24 levothyroxine 50 mcg tablet 50 mcg PO DAILYBB 09/09/21 03/30/24 (Synthroid) paroxetine HCl 20 mg tablet 20 mg PO DAILY 09/09/21 03/30/24 atorvastatin 80 mg tablet 80 mg PO DAILY 07/29/23 03/30/24 levalbuterol tartrate 45 1 inh inhalation Q6H PRN Shortness 07/29/23 03/30/24 mcg/actuation aerosol inhaler Of Breath Or Wheezing metoprolol succinate 50 mg 50 mg PO DAILY 07/29/23 03/30/24 tablet,extended release 24 hr omeprazole 40 mg capsule,delayed 40 mg PO DAILY 07/29/23 03/30/24 release Previous Rx's Medication Instructions Recorded famotidine 20 mg tablet (Acid 20 mg PO DAILY #90 tabs 06/02/21 [employer] (famotidine)) fluticasone propionate 50 2 spray intranasal DAILY #15.8 08/24/21 mcg/actuation nasal grams spray,suspension clopidogrel 75 mg tablet 75 mg PO QAM #30 tabs 09/11/21 Flutter Valve #1 ea 03/14/22 Portable Oxygen #1 ea 07/26/22 fluticasone fur. 100 mcg-umeclid 1 inh inhalation DAILY #3 Inhalers 07/26/23 62.5 mcg-vilant 25 mcg inhalat.powder (Trelegy Ellipta) amlodipine 2.5 mg tablet 2.5 mg PO BID #180 tabs 08/14/23 Results & Data (ED) Vital Signs Vital Signs - 24 hr 03/30/24 13:52 03/30/24 15:38 03/30/24 15:38 Temperature 36.7 C Temperature Source Temporal Artery Scan Pulse Rate 73 Pulse Rate [Apical] 67 Respiratory Rate 18 18 Respiratory Effort / Characteristics Non-Labored Non-Labored Spontaneous Respiratory Depth Normal Blood Pressure 151/66 H Blood Pressure [Right Arm] 160/67 H Blood Pressure Mean 94 Blood Pressure Mean [Right Arm] 98 Blood Pressure Position Sitting Blood Pressure Position [Right Arm] Lying Pulse Oximetry 93 88 L 91 Oxygen Delivery Method Room Air Nasal Cannula Nasal Cannula Oxygen Flow Rate 0 2 Sepsis Recent Fever Within 48 Hours No Sepsis New/Unexplained Change in Mental Status N/A Sepsis Action Taken by Nursing No Action Required Oxygen Flow Rate - Titration 2 Pulse Oximetry Post Tiitration 91 03/30/24 15:38 03/30/24 17:00 03/30/24 17:06 Temperature Temperature Source Pulse Rate 67 68 Pulse Rate [Apical] 69 Respiratory Rate 16 24 Respiratory Effort / Characteristics Respiratory Depth Blood Pressure Blood Pressure [Right Arm] 129/58 L Blood Pressure Mean Blood Pressure Mean [Right Arm] 81 Blood Pressure Position Blood Pressure Position [Right Arm] Pulse Oximetry 91 92 Oxygen Delivery Method Room Air Room Air Oxygen Flow Rate Sepsis Recent Fever Within 48 Hours Sepsis New/Unexplained Change in Mental Status Sepsis Action Taken by Nursing Oxygen Flow Rate - Titration Pulse Oximetry Post Tiitration Laboratory Data 03/30/24 14:05 03/30/24 14:05 Lab Results 03/30/24 03/30/24 Range/Units 14:05 15:34 WBC 14.03 H (4.8-10.8) K/ul RBC 3.79 L (4.20-5.40) M/uL Hgb 11.0 L (12.0-16.0) g/dl Hct 33.3 L (37.0-47.0) % MCV 87.9 (80.0-100.0) fL MCH 29.0 (25.0-34.0) pg MCHC 33.0 (32.0-36.0) g/dL RDW Std Deviation 44.0 (36.4-46.3) fL RDW Coeff of Lakshmi 13.7 (11.5-14.5) % Plt Count 220 (130-400) K/uL MPV 11.6 (9.4-12.4) fL Immature Gran % (Auto) 0.6 % Neut % (Auto) 83.1 % Lymph % (Auto) 5.5 % [place] % (Auto) 10.5 % Eos % (Auto) 0.1 % Baso % (Auto) 0.2 % Neut # (Auto) 11.66 H (1.40-6.50) K/uL Lymph # (Auto) 0.77 L (1.20-3.40) K/uL [place] # (Auto) 1.47 H (0.11-0.59) K/uL Eos # (Auto) 0.01 (0.00-0.50) K/uL Baso # (Auto) 0.03 (0.00-0.20) K/uL Immature Gran # (Auto) 0.09 (0.01-0.20) K/uL Sodium 132 L (136-145) mmol/L Potassium 4.2 (3.5-5.1) mmol/L Chloride 99 (98-107) mmol/L Carbon Dioxide 23 (21-32) mmol/L Anion Gap 10 (3-11) BUN 20 (6-23) mg/dl Creatinine 1.17 (0.6-1.2) mg/dl Est Cr Clr Drug Dosing 30.1 ml/min eGFR 45.44 BUN/Creatinine Ratio 17.1 (10-20) Glucose 144 H (70-99(Fasting)) mg/dl Calcium 9.0 (8.6-10.3) mg/dl Total Bilirubin 1.1 H (0.2-1.0) mg/dl AST 26 (13-39) U/L ALT 16 (7-52) U/L Alkaline Phosphatase 102 (34-104) U/L Total Protein 7.3 (6.0-8.3) gm/dl Albumin 3.8 (3.4-5.0) gm/dl Globulin 3.5 (2.5-4.0) gm/dl Albumin/Globulin Ratio 1.1 (0.9-2) Procalcitonin 0.24 (0-0.5) ng/ml TSH 3.990 (0.300-4.500) uIu/ml Urine Color Dark Yellow Urine Appearance Turbid A (Clear) Urine pH 5.5 (4.5-7.5) Ur Specific [place] 1.036 H (1.000-1.030) Urine Protein 3+ H (Negative) Urine Glucose (UA) Negative (Negative) Urine Ketones Trace H (Negative) Urine Blood 2+ H (Negative) Urine Nitrite Negative (Negative) Urine Bilirubin 1+ H (Negative) Urine Urobilinogen Negative (Negative) Ur Leukocyte Esterase 1+ H (Negative) Urine WBC (Auto) 11-20 H (0-5) /hpf Urine RBC (Auto) 6-10 H (0-2) /hpf U Hyaline Cast (Auto) 6-10 H (0-2) /lpf U Epithel Cells (Auto) 6-10 H (0-2) /hpf Urine Bacteria (Auto) 1+ H (None Seen) Urine Mucus Present A (None Prsent) Adenovirus (PCR) Not Detected (NotDetected) B. pertussis DNA (PCR) Not Detected (NotDetected) B.parapertussis DNA PCR Not Detected (NotDetected) C. pneumoniae DNA (PCR) Not Detected (NotDetected) Coronavirus OC43 (PCR) Not Detected (NotDetected) Coronavirus HKU1 (PCR) Not Detected (NotDetected) Coronavirus 229E (PCR) Not Detected (NotDetected) SARS-CoV-2 (PCR) Not Detected (NotDetected) Coronavirus NL63 (PCR) Not Detected (NotDetected) Human Metapneumovir PCR Not Detected (NotDetected) Influenza Type A (PCR) Not Detected (NotDetected) Influenza Type B (PCR) Not Detected (NotDetected) M. pneumoniae (PCR) Not Detected (NotDetected) Parainfluenza 1 (PCR) Not Detected (NotDetected) Parainfluenza 2 (PCR) Not Detected (NotDetected) Parainfluenza 3 (PCR) Not Detected (NotDetected) Parainfluenza 4 (PCR) Not Detected (NotDetected) RSV (PCR) Not Detected (NotDetected) Entero/Rhino (PCR) Not Detected (NotDetected) Administered Medications Guaifenesin (Guaifenesin 600 Mg Tabcr) 600 mg PO Q12H SMILEY Stop: 04/29/24 17:59 Last Admin: 03/30/24 17:33 Dose: 600 mg Documented By: ML Discontinued Medications Azithromycin (Azithromycin 250 Mg Tab) 500 mg PO NOW ONE Stop: 03/30/24 16:44 Last Admin: 03/30/24 17:33 Dose: 500 mg Documented By: ZOHRA Sodium Chloride (Nss) 500 mls @ 999 mls/hr IV .Q31M ONE Stop: 03/30/24 14:47 Last Admin: 03/30/24 15:50 Dose: 999 mls/hr Documented By: YUNI Ceftriaxone Sodium (Rocephin) 2,000 mg in 50 mls @ 100 mls/hr IV NOW STA Stop: 03/30/24 17:12 Last Admin: 03/30/24 17:33 Dose: 100 mls/hr Documented By: ZOHRA Ondansetron HCl (Ondansetron Inj 2 Mg/Ml 2 Ml Vial) 4 mg IV NOW STA Stop: 03/30/24 14:18 Last Admin: 03/30/24 15:50 Dose: 4 mg Documented By: YUNI Imaging Data Radiologist's Impression: Chest X-Ray 03/30/24 14:01 Chest radiograph, one view History: Weakness Comparison: None Findings: Single AP view of the chest performed. No pneumothorax. Mild perihilar opacity may represent atelectasis. There is right hilar fullness. Right upper lobe scattered patchy nodular opacities are seen. Some smaller nodular opacities are seen in the right lower lung. The heart is enlarged. There is a leftWall dual-lead AICD. No visualized bony or soft tissue abnormality. Impression: Scattered nodular opacities in the right lung, which may be infectious. There is right hilar fullness, possibly due to lymphadenopathy, either reactive or malignant not excluded. Follow-up to resolution or chest CT is recommended. Electronically signed by Antwan Ro 03-30-2024 3:[address] 03/30/24 14:05 CT cervical spine without IV contrast History: Pain Comparison: None Technique: Using multidetector thin collimation helical acquisition technique, axial, coronal and sagittal CT images through the cervical spine were obtained without intravenous contrast. Dose reduction techniques were achieved by using automatic exposure control and/or adjustment of mA and/or kV according to patient size and/or use of iterative reconstruction technique. Findings: The cervical vertebrae are normally aligned. Normal cervical lordosis. No acute fracture or subluxation. No prevertebral edema. Moderate multilevel discogenic and facet degenerative change. Osteopenia. No abnormality of the paraspinous soft tissues. Impression: No acute fracture or traumatic subluxation. Electronically signed by Antwan Ro 03-30-2024 2:[address] 03/30/24 14:05 CT head without contrast History: Trauma Comparison: None Technique: Using multidetector thin collimation helical acquisition technique, axial, coronal and sagittal CT images from the skull base to the vertex were obtained without intravenous contrast. Dose reduction techniques were achieved by using automatic exposure control and/or adjustment of mA and/or kV according to patient size and/or use of iterative reconstruction technique. Findings: No intracranial hemorrhage, mass-effect, or midline shift. The ventricles are proportionate to the cerebral sulci. Encephalomalacia related to a moderate chronic right parietal lobe infarct otherwise the koch to white matter differentiation of the cerebral hemispheres is preserved. The basal cisterns are patent. There is moderate cerebral atrophy. Moderate, patchy low-attenuation changes in the white matter, most suggestive of sequelae of chronic small vessel ischemic disease. The visualized paranasal sinuses are clear. Mastoid air cells are clear. Impression: No acute intracranial pathology. Electronically signed by Antwan Ro 03-30-2024 2:[address] 03/30/24 14:17 CT maxillofacial without contrast History: Trauma Comparison: None Technique: Using thin collimation multidetector helical acquisition technique, axial and coronal thin section CT images were reconstructed through the facial bones. Images were reviewed in bone and soft tissue windows. One or more of the following dose-optimizing techniques was utilized for this exam: automated exposure control, adjustment of the mA and/or kV according to patient size, and/or use of iterative reconstruction technique. Findings: There is no significant soft tissue swelling of the face. There is no evident fracture of the facial bones. The cribriform plate appears intact. Alignment of the facial bones appears normal. There is no hematoma, soft tissue mass or gas visualized within the orbits. Mild mucosal thickening of the ethmoid air cells and frontal sinuses. Impression: Normal CT study of the facial bones. Electronically signed by Antwan Ro 03-30-2024 2:53 PM Shoulder X-Ray 03/30/24 14:53 Study: Left shoulder, 5 views History: Pain Comparison: None Findings: There is no acute fracture or dislocation. There is a total left shoulder arthroplasty. Alignment is anatomic. Joint spaces are well maintained. There is no joint effusion or significant soft tissue swelling. Bone mineralization is normal. Impression: No acute bony abnormality of the left shoulder. Left shoulder arthroplasty appears intact. Electronically signed by Antwan Ro 03-30-2024 3:43 PM Discharge Plan Visit Data Chief Complaint: Lethargic Stated Complaint: NAUSEA, TIRED, FALL 1 WK AGO ED Provider: Miguel Angel Murphy Discharge Problem: Hypoxic, Anemia, Weakness Forms Stand Alone Forms: My [facility] Prescriptions Prescriptions: No Action famotidine [Acid [employer] (famotidine)] 20 mg tablet 20 mg PO DAILY Qty: 90 2RF (DME) Portable Oxygen Misc See Rx Instructions .Route Qty: 1 0RF Rx Instructions: Oxygen concentrator with portable tanks-2 L with exertion and when sleeping via n/c. Assess for portability. Length of need 99 years. Trelegy Ellipta 100-62.5-25 mcg blister with device 1 inh inhalation DAILY Qty: 3 3RF amlodipine 2.5 mg tablet 2.5 mg PO BID Qty: 180 3RF (DME) Flutter Valve Device See Rx Instructions .ROUTE .MEDSUPPLY Qty: 1 0RF Rx Instructions: As directed buspirone 5 mg tablet 5 mg PO BID meclizine 12.5 mg tablet 12.5 mg PO TID PRN (Reason: Dizziness) fluticasone propionate 50 mcg/actuation spray,suspension 2 spray intranasal DAILY Qty: 15.8 2RF Rx Instructions: administer into each nostril paroxetine HCl 20 mg tablet 20 mg PO DAILY levothyroxine [Synthroid] 50 mcg tablet 50 mcg PO DAILYBB clopidogrel 75 mg Tablet 75 mg PO QAM Qty: 30 0RF atorvastatin 80 mg tablet 80 mg PO DAILY omeprazole 40 mg Capsule,Delayed Release(Dr/Ec) 40 mg PO DAILY levalbuterol tartrate 45 mcg/actuation Hfa Aerosol Inhaler 1 inh INHALATION Q6H PRN (Reason: Shortness Of Breath Or Wheezing) metoprolol succinate 50 mg tablet extended release 24 hr 50 mg PO DAILY Referrals Referrals: Heather Harper MD [Primary Care Provider] - Discharge Problem: Anemia Qualifiers: Anemia type: unspecified type Qualified Code(s): D64.9 - Anemia, unspecified
[2024-03-30 14:41] LABS: Basophils # (auto) 0.03 K/uL (0.00-0.20); Basophils % (auto) 0.2 %; Eosinophils # (auto) 0.01 K/uL (0.00-0.50); Eosinophils % (auto) 0.1 %; Hematocrit (blood only) 33.3 % (37.0-47.0); Immature Granulocytes # (auto) 0.09 K/uL (0.01-0.20); Immature Granulocytes % (auto) 0.6 %; Lymphocytes # (auto) 0.77 K/uL (1.20-3.40); Lymphocytes % (auto) 5.5 %; Mean Corpuscular Volume 87.9 fL (80.0-100.0); Mean Platelet Volume 11.6 fL (9.4-12.4); Monocytes # (auto) 1.47 K/uL (0.11-0.59); Monocytes % (auto) 10.5 %; Neutrophils # (auto) 11.66 K/uL (1.40-6.50); Neutrophils % (auto) 83.1 %; Platelet Count 220 K/uL (130-400); RDW Coefficient of Variation 13.7 % (11.5-14.5); Red Blood Count 3.79 M/uL (4.20-5.40); White Blood Count 14.03 K/ul (4.8-10.8)
--- NOTE | 2024-03-30 14:54 | CT Scan Report ---
CT maxillofacial without contrast History: Trauma Comparison: None Technique: Using thin collimation multidetector helical acquisition technique, axial and coronal thin section CT images were reconstructed through the facial bones. Images were reviewed in bone and soft tissue windows. One or more of the following dose-optimizing techniques was utilized for this exam: automated exposure control, adjustment of the mA and/or kV according to patient size, and/or use of iterative reconstruction technique. Findings: There is no significant soft tissue swelling of the face. There is no evident fracture of the facial bones. The cribriform plate appears intact. Alignment of the facial bones appears normal. There is no hematoma, soft tissue mass or gas visualized within the orbits. Mild mucosal thickening of the ethmoid air cells and frontal sinuses. Impression: Normal CT study of the facial bones. Electronically signed by Antwan Ro 03-30-2024 2:53 PM
--- NOTE | 2024-03-30 14:56 | CT Scan Report ---
CT cervical spine without IV contrast History: Pain Comparison: None Technique: Using multidetector thin collimation helical acquisition technique, axial, coronal and sagittal CT images through the cervical spine were obtained without intravenous contrast. Dose reduction techniques were achieved by using automatic exposure control and/or adjustment of mA and/or kV according to patient size and/or use of iterative reconstruction technique. Findings: The cervical vertebrae are normally aligned. Normal cervical lordosis. No acute fracture or subluxation. No prevertebral edema. Moderate multilevel discogenic and facet degenerative change. Osteopenia. No abnormality of the paraspinous soft tissues. Impression: No acute fracture or traumatic subluxation. Electronically signed by Antwan Ro 03-30-2024 2:53 PM
--- NOTE | 2024-03-30 14:56 | CT Scan Report ---
CT head without contrast History: Trauma Comparison: None Technique: Using multidetector thin collimation helical acquisition technique, axial, coronal and sagittal CT images from the skull base to the vertex were obtained without intravenous contrast. Dose reduction techniques were achieved by using automatic exposure control and/or adjustment of mA and/or kV according to patient size and/or use of iterative reconstruction technique. Findings: No intracranial hemorrhage, mass-effect, or midline shift. The ventricles are proportionate to the cerebral sulci. Encephalomalacia related to a moderate chronic right parietal lobe infarct otherwise the koch to white matter differentiation of the cerebral hemispheres is preserved. The basal cisterns are patent. There is moderate cerebral atrophy. Moderate, patchy low-attenuation changes in the white matter, most suggestive of sequelae of chronic small vessel ischemic disease. The visualized paranasal sinuses are clear. Mastoid air cells are clear. Impression: No acute intracranial pathology. Electronically signed by Antwan Ro 03-30-2024 2:53 PM
[2024-03-30 15:16] LABS: Thyroid Stimulating Hormone 3.99 uIu/ml (0.300-4.500)
[2024-03-30 15:22] LABS: Potassium 4.2 mmol/L (3.5-5.1)
[2024-03-30 15:28] LABS: Albumin Globulin Ratio 1.1 (0.9-2); Albumin Level 3.8 gm/dl (3.4-5.0); BUN Creatinine Ratio 17.1 (10-20); Bilirubin,Total 1.1 mg/dl (0.2-1.0); Creatinine Clr Calc Pharmacy 30.1 ml/min; Globulin 3.5 gm/dl (2.5-4.0); Total Protein 7.3 gm/dl (6.0-8.3)
--- NOTE | 2024-03-30 15:44 | XRay Report ---
Chest radiograph, one view History: Weakness Comparison: None Findings: Single AP view of the chest performed. No pneumothorax. Mild perihilar opacity may represent atelectasis. There is right hilar fullness. Right upper lobe scattered patchy nodular opacities are seen. Some smaller nodular opacities are seen in the right lower lung. The heart is enlarged. There is a leftWall dual-lead AICD. No visualized bony or soft tissue abnormality. Impression: Scattered nodular opacities in the right lung, which may be infectious. There is right hilar fullness, possibly due to lymphadenopathy, either reactive or malignant not excluded. Follow-up to resolution or chest CT is recommended. Electronically signed by Antwan Ro 03-30-2024 3:43 PM
--- NOTE | 2024-03-30 15:44 | XRay Report ---
Study: Left shoulder, 5 views History: Pain Comparison: None Findings: There is no acute fracture or dislocation. There is a total left shoulder arthroplasty. Alignment is anatomic. Joint spaces are well maintained. There is no joint effusion or significant soft tissue swelling. Bone mineralization is normal. Impression: No acute bony abnormality of the left shoulder. Left shoulder arthroplasty appears intact. Electronically signed by Antwan Ro 03-30-2024 3:43 PM
[2024-03-30] MEDS: ONDANSETRON INJ 2 MG/ML 2 ML VIAL IV STA (15:50)
[2024-03-30] MEDS: SODIUM CHLORIDE 0.9% 500 ML IV ONE (15:50)
[2024-03-30 16:02] LABS: Appearance Urine Turbid (Clear); Bacteria Urine Automated 1+ (None Seen); Bilirubin Urine 1+ (Negative); Blood Urine 2+ (Negative); Color Urine Dark Yellow; Glucose Urine UA Negative (Negative); Ketones Urine Trace (Negative); Leukocyte Esterase Urine 1+ (Negative); Mucus Urine Present (None Prsent); Nitrite Urine Negative (Negative); Protein Urine 3+ (Negative); Specific Gravity Urine 1.036 (1.000-1.030); Urobilinogen Urine Negative (Negative); pH Urine 5.5 (4.5-7.5)
--- NOTE | 2024-03-30 16:39 | History & Physical Report ---
Date of Service March 30, 2024 Assessment & Plan (1) Weakness: (2) SOB (shortness of breath): (3) Bronchiectasis with (acute) exacerbation: Plan Ms. Luh Ro is an 88-year-old female with PMH HTN, dyslipidemia, CAD, asthma, bronchiectasis, chronic hypoxic respiratory failure on 2 L oxygen, SSS s/p pacemaker, CKD III, depression, anxiety, hypothyroidism and others listed below admitted for evaluation of generalized weakness and sob with concern for early bronchiectasis flare. No eosinophillia and no wheezing, will hold steroids and opt for mucolytics and abx at this time. Questionable urine likely iso poor po, low suspicion of active UTI; however, abx will cover for possibility--narrow contingent on cultures. #Generalized weakness #Mechanical fall doesn't ambulate with assistive device active with HH Pt/Ot PT/OT while inpatient Tele to [facility] 24 hours for any arrhythmia contributing #SOB c/f early bronchiectasis flare #Chronic hypoxic resp failure on 2L continuous #Bronchiectasis patient with out O2 for "2 weeks", cold like symptoms, increased sputum, cough Biofire negative Continue home inhalers, Xopenex as needed Mucomyst BID and Mucinex Flutter valve CTX/Azithromycin #abnormal UA #Leukocytosis seemingly poor sample, patient without urine symptoms but notes "darker" urine, potentially related to poor intake in last few days reflexed to culture, clinically correlate, empirically covered with above #Dysphonia undergoing eval with ENT continue PPI/H2 latha Speech therapy eval #Hyponatremia s/p 1000cc NS Trend BMP, suspect 2/2 poor intake #CAD 07/30/2023 echo: EF: 65-70% History moderate mid LAD obstruction via coronary CT in 2007, history of abnormal nuclear stress testing 05/18 and patient denied heart cath and is being managed medically Continue Plavix, atorvastatin, metoprolol succinate # Shoulder pain, left: 11/2023 s/p replacement Xray reveals stable left shoulder arthroplasty Myoflex elsa # CKD (chronic kidney disease), stage III: Baseline: 1.0 Monitor renal functions, avoid nephrotoxic agents when possible #Hypertension: Continue amlodipine, metoprolol succinate #Anxiety and depression: Continue buspirone, paroxetine # SSS 1990 S/p pacemaker Pacemaker interrogation #Hypothyroidism: Continue levothyroxine DVT Prophylaxis lovenox admit med/tele Full Code as per discussion with patient Admission and Anticipated Discharge Date Admission Date: Time spent evaluating patient, direct bedside care, chart review, placing orders, interpretation of diagnostic studies, discussion with consultants, patient, and family members, as well as other required patient management activities is 75 minutes. History of Present Illness Chief Complaint: Weakness, SOB Primary Care Provider: Heather Harper MD Ms. Luh Ro is an 88-year-old female with PMH HTN, dyslipidemia, CAD, asthma, bronchiectasis, chronic hypoxic respiratory failure on 2 L oxygen, SSS s/p pacemaker, CKD III, depression, anxiety, hypothyroidism presented to [facility] ED due to generalized weakness and SOB progressed from baseline. Patient states that last week she has been experiencing cold like symptoms marked by increased sputum production and cough. She states that she was living with her sisters as well for last 2 weeks for Holidays and have been without her oxygen. She notes that she was eating less and becoming weaker. She denies fevers, wheezing, diarrhea, dysuria, but does endorse chills and darker urine. She states on Monday, she was in bed and attempted to get up, but after her left shoulder repair, she never got her strength back and ultimately struggled to sit herself up and falling out of bed. Her left shoulder is bruised and superficially tender. She reports a bruise to left eye, but denies any neurologic changes. She was brought to ED at behest of her sisters given her weakness. In the ED, vitals were notable for BP of 110s-160s HR of 60s , and O2 sat of low 90s on 2L (home o2) Imaging revealed no fracture to LUE, no intracranial process,and no signs of consolidation on CXR UA abnormal, labs with WBC to 14, stable anemia, hyponatremia to 132 ED interventions: CTX, azithromycin, 1 L NS Patient to be admitted to med/tele for further evaluation and management of weakness/SOB, concern for possible flare of bronchiectasis Allergies Allergy/AdvReac Type Severity Reaction Status Date / Time Iodinated Contrast Media Allergy Intermediate IV dye Verified 07/18/23 14:03 -hives NSAIDS (Non-Steroidal Allergy Unknown UNKNOWN Verified 07/18/23 14:03 Anti-Inflamma primidone Allergy Unknown UNKNOWN Verified 07/18/23 14:03 sertraline Allergy Unknown UNKNOWN Verified 07/18/23 14:03 Sulfa (Sulfonamide Allergy Unknown "SULFA" Verified 07/18/23 14:03 Antibiotics) ALLERGY Home Medications Medication Instructions Recorded Confirmed Type buspirone 5 mg tablet 5 mg PO BID 06/01/21 03/30/24 History meclizine 12.5 mg tablet 12.5 mg PO TID PRN Dizziness 06/01/21 03/30/24 History famotidine 20 mg tablet (Acid 20 mg PO DAILY #90 tabs 06/02/21 03/30/24 Rx Clinical Support Manager (famotidine)) fluticasone propionate 50 2 spray intranasal DAILY #15.8 08/24/21 03/30/24 Rx mcg/actuation nasal grams spray,suspension levothyroxine 50 mcg tablet 50 mcg PO DAILYBB 09/09/21 03/30/24 History (Synthroid) paroxetine HCl 20 mg tablet 20 mg PO DAILY 09/09/21 03/30/24 History clopidogrel 75 mg tablet 75 mg PO QAM #30 tabs 09/11/21 03/30/24 Rx Flutter Valve #1 ea 03/14/22 02/02/24 Rx Portable Oxygen #1 ea 07/26/22 02/02/24 Rx fluticasone fur. 100 mcg-umeclid 1 inh inhalation DAILY #3 Inhalers 07/26/23 03/30/24 Rx 62.5 mcg-vilant 25 mcg inhalat.powder (Trelegy Ellipta) atorvastatin 80 mg tablet 80 mg PO DAILY 07/29/23 03/30/24 History levalbuterol tartrate 45 1 inh inhalation Q6H PRN Shortness 07/29/23 03/30/24 History mcg/actuation aerosol inhaler Of Breath Or Wheezing metoprolol succinate 50 mg 50 mg PO DAILY 07/29/23 03/30/24 History tablet,extended release 24 hr omeprazole 40 mg capsule,delayed 40 mg PO DAILY 07/29/23 03/30/24 History release amlodipine 2.5 mg tablet 2.5 mg PO BID #180 tabs 08/14/23 03/30/24 Rx Past Med/Surg History Problem List (Updated 03/30/24 @ 17:48 by Kirstie Kumari MD) Bronchiectasis with (acute) exacerbation SOB (shortness of breath) Weakness 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 Dysphagia Abnormal ECG (Acute) Elevated troponin (Acute) Pneumonia (Acute) Microscopic hematuria Shoulder pain, left Pacemaker SSS (sick sinus syndrome) Anxiety and depression CAD (coronary artery disease) Elevated troponin Chest discomfort Pneumonia Weakness of voice Dyspnea on exertion Chronic cough Bronchiectasis Vitamin D deficiency TIA (transient ischemic attack) Changes in vision (Acute) History of recent stroke (Acute) CVA (cerebral vascular accident) JUVENAL (acute kidney injury) DVT prophylaxis Acute confusion (Acute) Facial paresthesia (Acute) Hand paresthesia (Acute) Acute loss of vision (Acute) Arterial branch occlusion of retina (Acute) Chronic rhinitis Sensorineural hearing loss of both ears BPPV (benign paroxysmal positional vertigo) Imbalance Dysphonia LPRD (laryngopharyngeal reflux disease) Systolic murmur Cough Dyspnea on exertion Hip pain, left Chronic rhinitis Hypothyroidism Depression Asthma CKD (chronic kidney disease), stage III Hypertension (Acute) Medical History Essential tremor Hypercholesterolemia Osteoporosis Secondary hyperparathyroidism GERD (gastroesophageal reflux disease) Heart block Vitamin D deficiency Surgical History Hx of blepharoplasty Hx of repair of rotator cuff Hx of tonsillectomy History of breast lump removal Family History Father Hypertension Heart disease Mother Hypertension Asthma Other Cancer Diabetes Kidney disease Lung disease No family history of adverse response to anesthesia No family history of bleeding disorder Social History Smoking Status: Never smoker Second Hand Exposure: No; Do You Dip or Chew Tobacco: No; Hx Alcohol Use: Yes Alcohol type: wine Alcohol Intake Frequency Comment: occasional Hx Substance Use: No Preferred Language: Malay Communication Ability: Effective [employer] 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 Head: (-) headache, (-) dizziness. Eye: (-) blurring of vision, (-) double vision, (-) redness. Ear: (-) hearing loss, (-) discharge, (-) vertigo Nose: (-) discharge, (-) bleeding, (-) congestion, (-) post nasal drip. Throat: (-) sore throat, (-) hoarseness of voice, (-) odynophagia. Cardiovascular: (-) chest pain, (-) palpitations, (-) syncope, (-) orthopnea, (- ) PND, (-) leg swelling. Respiratory: (++) shortness of breath, (++) cough, (-) wheezing, (-) hemoptysis. Neuro: (-) weakness in extremities, (-) numbness, (-) tingling, (-) tremor. Gastrointestinal: (-) belly pain, (-) belly distension, (-) nausea, (-) vomiting, (-) diarrhea, (-) constipation Genitourinary: (-) hematuria, (-) dysuria, (-) polyuria, (-) hesitancy, (-) frequency, (-) urinary incontinence. Musculoskeletal: (-) myalgia, (-) arthralgia. Skin: (-) rashes. Endocrine: (-) heat/cold intolerance. Psychiatry: (-) depression, (-) hallucination. Physical Exam Physical Exam: GENERAL APPEARANCE: AxOx4, pleasant elderly woman, no distress HEENT: NC, AT. MMM. EOMI, clear conjunctiva, oropharynx clear. NECK: Supple without lymphadenopathy. No stiffness or restricted ROM. HEART: Normal rate and regular rhythm, normal S1/S1, no m/r/g LUNGS: diminished bibasilar breath sounds, rhonchi cleared with cough ABDOMEN: Soft, nontender, nondistended with good bowel sounds heard. EXTREMITIES: Without cyanosis, clubbing or edema. NEUROLOGICAL: Grossly nonfocal. Alert and oriented, moving all 4 extremities. CN not formally tested but appear grossly intact Skin: resolving ecchymosis over left eye, resolving ecchymosis of anterior left shoulder Results & Data Results & Data Vital Signs (Past 12 Hours) Vital Signs Temp Pulse Pulse Resp BP BP Pulse Ox 03/30/24 15:38 67 16 91 03/30/24 15:38 67 18 160/67 H 91 01/04/25 15:38 88 L 03/30/24 13:52 36.7 C 73 18 151/66 H 93 O2 Del Method O2 Flow Rate 03/30/24 15:38 Room Air 03/30/24 15:38 Nasal Cannula 2 03/30/24 15:38 Nasal Cannula 0 03/30/24 13:52 Room Air Laboratory Results Short CBC 03/30/24 Range/Units 14:05 WBC 14.03 H (4.8-10.8) K/ul Hgb 11.0 L (12.0-16.0) g/dl Hct 33.3 L (37.0-47.0) % Plt Count 220 (130-400) K/uL BMP 03/30/24 14:05 Sodium 132 L Potassium 4.2 Chloride 99 Carbon Dioxide 23 BUN 20 Creatinine 1.17 Glucose 144 H Calcium 9.0 Liver Function 03/30/24 Range/Units 14:05 Total Bilirubin 1.1 H (0.2-1.0) mg/dl AST 26 (13-39) U/L ALT 16 (7-52) U/L Alkaline Phosphatase 102 (34-104) U/L Albumin 3.8 (3.4-5.0) gm/dl Urine 03/30/24 Range/Units 15:34 Urine Color Dark Yellow Urine Appearance Turbid A (Clear) Urine pH 5.5 (4.5-7.5) Ur Specific [place] 1.036 H (1.000-1.030) Urine Protein 3+ H (Negative) Urine Glucose (UA) Negative (Negative) Diagnostic Findings Chest X-Ray 03/30/24 14:01 Chest radiograph, one view History: Weakness Comparison: None Findings: Single AP view of the chest performed. No pneumothorax. Mild perihilar opacity may represent atelectasis. There is right hilar fullness. Right upper lobe scattered patchy nodular opacities are seen. Some smaller nodular opacities are seen in the right lower lung. The heart is enlarged. There is a leftWall dual-lead AICD. No visualized bony or soft tissue abnormality. Impression: Scattered nodular opacities in the right lung, which may be infectious. There is right hilar fullness, possibly due to lymphadenopathy, either reactive or malignant not excluded. Follow-up to resolution or chest CT is recommended. Electronically signed by Antwan Ro 03-30-2024 3:[address] 03/30/24 14:05 CT cervical spine without IV contrast History: Pain Comparison: None Technique: Using multidetector thin collimation helical acquisition technique, axial, coronal and sagittal CT images through the cervical spine were obtained without intravenous contrast. Dose reduction techniques were achieved by using automatic exposure control and/or adjustment of mA and/or kV according to patient size and/or use of iterative reconstruction technique. Findings: The cervical vertebrae are normally aligned. Normal cervical lordosis. No acute fracture or subluxation. No prevertebral edema. Moderate multilevel discogenic and facet degenerative change. Osteopenia. No abnormality of the paraspinous soft tissues. Impression: No acute fracture or traumatic subluxation. Electronically signed by Antwan Ro 03-30-2024 2:[address] 03/30/24 14:05 CT head without contrast History: Trauma Comparison: None Technique: Using multidetector thin collimation helical acquisition technique, axial, coronal and sagittal CT images from the skull base to the vertex were obtained without intravenous contrast. Dose reduction techniques were achieved by using automatic exposure control and/or adjustment of mA and/or kV according to patient size and/or use of iterative reconstruction technique. Findings: No intracranial hemorrhage, mass-effect, or midline shift. The ventricles are proportionate to the cerebral sulci. Encephalomalacia related to a moderate chronic right parietal lobe infarct otherwise the koch to white matter differentiation of the cerebral hemispheres is preserved. The basal cisterns are patent. There is moderate cerebral atrophy. Moderate, patchy low-attenuation changes in the white matter, most suggestive of sequelae of chronic small vessel ischemic disease. The visualized paranasal sinuses are clear. Mastoid air cells are clear. Impression: No acute intracranial pathology. Electronically signed by Antwan Ro 03-30-2024 2:[address] 03/30/24 14:17 CT maxillofacial without contrast History: Trauma Comparison: None Technique: Using thin collimation multidetector helical acquisition technique, axial and coronal thin section CT images were reconstructed through the facial bones. Images were reviewed in bone and soft tissue windows. One or more of the following dose-optimizing techniques was utilized for this exam: automated exposure control, adjustment of the mA and/or kV according to patient size, and/or use of iterative reconstruction technique. Findings: There is no significant soft tissue swelling of the face. There is no evident fracture of the facial bones. The cribriform plate appears intact. Alignment of the facial bones appears normal. There is no hematoma, soft tissue mass or gas visualized within the orbits. Mild mucosal thickening of the ethmoid air cells and frontal sinuses. Impression: Normal CT study of the facial bones. Electronically signed by Antwan Ro 03-30-2024 2:53 PM Shoulder X-Ray 03/30/24 14:53 Study: Left shoulder, 5 views History: Pain Comparison: None Findings: There is no acute fracture or dislocation. There is a total left shoulder arthroplasty. Alignment is anatomic. Joint spaces are well maintained. There is no joint effusion or significant soft tissue swelling. Bone mineralization is normal. Impression: No acute bony abnormality of the left shoulder. Left shoulder arthroplasty appears intact. Electronically signed by Antwan Ro 03-30-2024 3:43 PM Medications Administered Home Medications Medication Instructions Recorded Confirmed Last Taken buspirone 5 mg tablet 5 mg PO BID 06/01/21 03/30/24 09/14/21 meclizine 12.5 mg tablet 12.5 mg PO TID PRN Dizziness 06/01/21 03/30/24 Unknown famotidine 20 mg tablet (Acid 20 mg PO DAILY #90 tabs 06/02/21 03/30/24 09/15/21 Clinical Support Manager (famotidine)) fluticasone propionate 50 2 spray intranasal DAILY #15.8 08/24/21 03/30/24 09/14/21 mcg/actuation nasal grams spray,suspension levothyroxine 50 mcg tablet 50 mcg PO DAILYBB 09/09/21 03/30/24 09/14/21 (Synthroid) paroxetine HCl 20 mg tablet 20 mg PO DAILY 09/09/21 03/30/24 09/14/21 clopidogrel 75 mg tablet 75 mg PO QAM #30 tabs 09/11/21 03/30/24 04/06/22 Flutter Valve #1 ea 03/14/22 02/02/24 Unknown Portable Oxygen #1 ea 07/26/22 02/02/24 Unknown fluticasone fur. 100 mcg-umeclid 1 inh inhalation DAILY #3 Inhalers 07/26/23 03/30/24 Unknown 62.5 mcg-vilant 25 mcg inhalat.powder (Trelegy Ellipta) atorvastatin 80 mg tablet 80 mg PO DAILY 07/29/23 03/30/24 Unknown levalbuterol tartrate 45 1 inh inhalation Q6H PRN Shortness 07/29/23 03/30/24 Unknown mcg/actuation aerosol inhaler Of Breath Or Wheezing metoprolol succinate 50 mg 50 mg PO DAILY 07/29/23 03/30/24 Unknown tablet,extended release 24 hr omeprazole 40 mg capsule,delayed 40 mg PO DAILY 07/29/23 03/30/24 Unknown release amlodipine 2.5 mg tablet 2.5 mg PO BID #180 tabs 08/14/23 03/30/24 Unknown
[2024-03-30 16:42] LABS: Adenovirus PCR Not Detected (NotDetected); Bordetella parapertussis PCR Not Detected (NotDetected); Bordetella pertussis PCR Not Detected (NotDetected); Chlamydia pneumoniae PCR Not Detected (NotDetected); Coronavirus 229E PCR Not Detected (NotDetected); Coronavirus CoV-2 (COVID19)PCR Not Detected (NotDetected); Coronavirus HKU1 PCR Not Detected (NotDetected); Coronavirus NL63 PCR Not Detected (NotDetected); Coronavirus OC43PCR Not Detected (NotDetected); Human Metapneumovirus PCR Not Detected (NotDetected); Influenza A PCR Not Detected (NotDetected); Influenza B PCR Not Detected (NotDetected); Mycoplasma pneumoniae PCR Not Detected (NotDetected); Parainfluenza Virus 1 PCR Not Detected (NotDetected); Parainfluenza Virus 2 PCR Not Detected (NotDetected); Parainfluenza Virus 3 PCR Not Detected (NotDetected); Parainfluenza Virus 4 PCR Not Detected (NotDetected); Respiratory Syncytial VirusPCR Not Detected (NotDetected); Rhinovirus/Enterovirus PCR Not Detected (NotDetected)
[2024-03-30] MEDS: cefTRIAXone SODIUM 2,000 MG/50 ML BAG IV STA (17:33)
[2024-03-30] MEDS: AZITHROMYCIN 250 MG TAB PO ONE (17:33)
[2024-03-30] MEDS: guaiFENesin 600 MG TABCR PO SCH (17:33)
[2024-03-30 19:23] LABS: Folate (Folic Acid),Ser orPlas > 22.30 ng/ml (>5.38)
[2024-03-30 19:24] LABS: Vitamin B12 289 pg/ml (180-914)
[2024-03-30] MEDS: LEVALBUTEROL HCL 0.63 MG/3 ML NEB NEB PRN (20:10)
[2024-03-30] MEDS: ACETYLCYSTEINE 20% INHAL SOLN 4ML ***DISPENSED BY RESP. INH SCH (20:13)
[2024-03-30] MEDS: TROLAMINE SALICYLATE 10% CRM 255 APPLN/85 GM TUBE EXT SCH (21:33)
[2024-03-30] MEDS: ACETAMINOPHEN 500 MG TAB PO PRN (21:38)
[2024-03-30] MEDS: ENOXAPARIN INJ 40 MG/0.4 ML SYR SQ SCH (21:39)
[2024-03-30] MEDS: amLODIPine BESYLATE 5 MG TAB PO SCH (21:39)
[2024-03-30] MEDS: busPIRone 5 MG TAB PO SCH (21:42)
[2024-03-31] MEDS: ALBUT/IPRATROP 3MG/0.5MG NEB 3 ML VIAL NEB SCH (01:04)
[2024-03-31] MEDS: BENZONATATE 100 MG CAPSULE PO PRN (06:11)
[2024-03-31] MEDS: LEVOTHYROXINE SODIUM 50 MCG TABLET PO SCH (06:13)
--- NOTE | 2024-03-31 08:22 | Hospitalist Progress Note ---
Date of Service March 31, 2024 Assessment & Plan (1) Weakness: (2) SOB (shortness of breath): (3) Bronchiectasis with (acute) exacerbation: Plan Ms. Luh Ro is an 88-year-old female with PMH HTN, dyslipidemia, CAD, asthma, bronchiectasis, chronic hypoxic respiratory failure on 2 L oxygen, SSS s/p pacemaker, CKD III, depression, anxiety, hypothyroidism and others listed below admitted for evaluation of generalized weakness and sob with concern for early bronchiectasis flare. No eosinophillia and no wheezing, will hold steroids and opt for mucolytics and abx at this time. Questionable urine likely iso poor po, low suspicion of active UTI; however, abx will cover for possibility. SOB ISO early bronchiectasis flare Chronic hypoxic resp failure: Bronchiectasis: Nocturnal hypoxia; wears 2LNC QHS at baseline patient with out O2 for "2 weeks", cold like symptoms, increased sputum, cough Biofire negative Continue home inhalers, Xopenex PRN; exterior wheezes on exam today; RT to give neb Mucomyst BID and Mucinex Flutter valve Sputum culture ordered 03/31 CTX/Azithromycin and adjust based on culture results Follows with Pulmonary as Outpatient; last appointment 10/2023- if no marked improvement; consider reinvolvement (was on Trelegy) Generalized weakness Mechanical fall doesn't ambulate with assistive device normally Was in a deep sleep and sitting on the edge of the bed; rolled out of bed, no LOC Face and CS CT negative active with HH Pt/Ot PT/OT while inpatient Tele to monitor 24 hours for any arrhythmia contributing; okay for downgrade on 04/01 to med/surg; SR with ICD without PVCs; pacing abnormal UA Leukocytosis Leukocytosis showing some improvement 14.03--> 13.40 seemingly poor sample, patient without urine symptoms but notes "darker" urine, likely related to poor PO intake in last few days reflexed to culture, clinically correlate, empirically covered with above and adjust as necessary Hyponatremia: Na+ essentially the same on admission; received 1L NS in ED; will administer additional liter and trend suspect 2/2 poor intake Dysphonia: GERD: Saw ENT 02/17 -Exam including videostroboscopy is normal aside from thick secretions and TVF atrophy. No evidence of thrush, mass, or lesion per ENT. continue PPI/H2 latha Speech therapy eval ; reports coughing with swallowing CAD 07/30/2023 echo: EF: 65-70% History moderate mid LAD obstruction via coronary CT in 2007, history of abnormal nuclear stress testing 05/18 and patient denied heart cath and is being managed medically Continue Plavix, atorvastatin, metoprolol succinate Shoulder pain, left: 11/2023 s/p replacement under the care of Dr. Bocanegra Xray reveals stable left shoulder arthroplasty Myoflex elsa PT/OT; she just resumed driving and PT has been going well as OPT CKD III: Baseline: 1.0 Monitor renal functions, avoid nephrotoxic agents when possible Hypertension: Continue amlodipine, metoprolol succinate Anxiety and depression: Continue buspirone, paroxetine 1990 S/p pacemaker Pacemaker interrogation without arrythmia Hypothyroidism: Continue levothyroxine DVT Prophylaxis: lovenox SQ admit med/tele; ok to downgrade pending pacer interrogation Full Code as per discussion with patient Pt sister Carolyn [phone] I spent a total of 56 minutes coordinating, documenting, and providing care for this patient excluding time spent in the performance of separately billed services. All of the aforementioned completed while collaborating with the assigned attending physician for a full treatment plan. Please see their addendum for further details. Admission and Anticipated Discharge Date Admission Date: March 30, 2024 Supervising Physician Co-Signing Physician Notes Attending addendum: The patient was seen and examined in medical telemetry unit She has been feeling better since admission Has minimal wheezing but denies any other significant symptoms 1 examination Sitting on a chair without any acute distress Remains hemodynamically stable and requiring 3 L to maintain saturation Chestoccasional wheezing and minimal bibasilar crackles HeartS1-S2, regular Abdomenbenign with minimal tenderness in hypogastrium Extremitiesno edema Her labs, medications and imaging studies reviewed Bronchiectasis and also UTI with ambulatory discomfort and a fall Getting improvement symptoms Agree with assessment and plan as outlined above by Ashley HALEY and take the full responsibility of care in the hospital Dr. Nighat Storm Subjective Patient lying in her hospital bed in no apparent distress. No acute events overnight. She does feel that her breathing has improved. Reports that she does remember falling; she was in bed, in a deep sleep and was laying on the edge of her bed and rolled out onto the floor. She was able to get herself up on her own. She has been staying with her sister until recently after her shoulder surgery that took place in November 2023. patient denies headache, dizziness, chest pain, palpitations, abdominal pain or tenderness, N/V/D. Called patient sister Carolyn at [phone] to provide update. ELOS 1-2 days Please see A/P for further details. Review of Systems Review of Systems: Constitutional: (-) fever/chills, (-) recent loss of weight, (+) appetite changes/decreased PO intake, (-) night sweats. Head: (-) headache, (-) dizziness. Eye: (-) blurring of vision, (-) double vision, (-) redness. Ear: (-) hearing loss, (-) discharge, (-) vertigo Nose: (-) discharge, (-) bleeding, (-) congestion, (-) post nasal drip. Throat: (-) sore throat, (-) hoarseness of voice, (-) odynophagia. Cardiovascular: (-) chest pain, (-) palpitations, (-) syncope, (-) orthopnea, (- ) PND, (-) leg swelling. Respiratory: (+) shortness of breath, (+) cough, (+) expiratory wheezing, (-) hemoptysis. Neuro: (-) weakness in extremities, (-) numbness, (-) tingling, (-) tremor. Gastrointestinal: (-) belly pain, (-) belly distension, (-) nausea, (-) vomi ting, (-) diarrhea, (-) constipation Genitourinary: (-) hematuria, (-) dysuria, (-) polyuria, (-) hesitancy, (-) frequency, (-) urinary incontinence. Musculoskeletal: (-) myalgia, (-) arthralgia Skin: (-) rashes. Endocrine: (-) heat/cold intolerance. Psychiatry: (-) depression, (-) hallucination. Physical Exam Physical Exam: Neuro: AAOx4, PERRLA, no aphagia, memory changes, CNII-XII grossly intact HEENT: head normocephalic, moist mucus membranes. (+) Dysphonia CV: S1/S2, (-) M/G/R, (-) edema, cap refill < 3 seconds Resp: Lungs expiratory wheezing anterior and posterior. On 3LNC. Wears 2LNC supplemental O2 QHS at home GI: Abdomen S/NT/ND, Ax4 bowel sounds, (-) CVA tenderness Musculoskeletal: 5/5 B/L UE strength, 5/5 B/L LE strength. Does not use assistive devices at home. (+) essential tremor, mostly hands; but shaky voice Skin: (-) rashes , (-) erythema. Psych: euthymic mood Results & Data Results & Data Vital Signs (Past 12 Hours) Vital Signs Temp Pulse Pulse Pulse Resp BP BP 03/31/24 07:51 37.0 C 70 16 141/65 H 03/31/24 07:18 71 18 03/31/24 05:52 71 03/31/24 04:27 36.8 C 63 20 127/73 03/30/24 23:29 63 03/30/24 23:16 03/30/24 22:48 37 C 69 16 130/63 Pulse Ox O2 Del Method O2 Flow Rate 03/31/24 07:51 94 Nasal Cannula 4 03/31/24 07:18 91 Nasal Cannula 4 03/31/24 05:52 03/31/24 04:27 92 Nasal Cannula 4 03/30/24 23:29 03/30/24 23:16 Nasal Cannula 4 03/30/24 22:48 94 Nasal Cannula 4 Laboratory Results Short CBC 03/30/24 Range/Units 14:05 WBC 14.03 H (4.8-10.8) K/ul Hgb 11.0 L (12.0-16.0) g/dl Hct 33.3 L (37.0-47.0) % Plt Count 220 (130-400) K/uL BMP 03/30/24 14:05 Sodium 132 L Potassium 4.2 Chloride 99 Carbon Dioxide 23 BUN 20 Creatinine 1.17 Glucose 144 H Calcium 9.0 Liver Function 03/30/24 Range/Units 14:05 Total Bilirubin 1.1 H (0.2-1.0) mg/dl AST 26 (13-39) U/L ALT 16 (7-52) U/L Alkaline Phosphatase 102 (34-104) U/L Albumin 3.8 (3.4-5.0) gm/dl Urine 03/30/24 Range/Units 15:34 Urine Color Dark Yellow Urine Appearance Turbid A (Clear) Urine pH 5.5 (4.5-7.5) Ur Specific [place] 1.036 H (1.000-1.030) Urine Protein 3+ H (Negative) Urine Glucose (UA) Negative (Negative)
[2024-03-31 08:48] LABS: Basophils # (auto) 0.02 K/uL (0.00-0.20); Basophils % (auto) 0.1 %; Eosinophils # (auto) 0.08 K/uL (0.00-0.50); Eosinophils % (auto) 0.6 %; Hemoglobin 9.2 g/dl (12.0-16.0); Immature Granulocytes # (auto) 0.08 K/uL (0.01-0.20); Immature Granulocytes % (auto) 0.6 %; Lymphocytes % (auto) 8.2 %; Mean Corpuscular Hgb Conc 32.9 g/dL (32.0-36.0); Mean Corpuscular Volume 88.3 fL (80.0-100.0); Mean Platelet Volume 11.1 fL (9.4-12.4); Monocytes # (auto) 1.53 K/uL (0.11-0.59); Monocytes % (auto) 11.4 %; Neutrophils # (auto) 10.59 K/uL (1.40-6.50); Neutrophils % (auto) 79.1 %; Platelet Count 186 K/uL (130-400); RDW Coefficient of Variation 13.8 % (11.5-14.5); RDW Standard Deviation 44.8 fL (36.4-46.3); Red Blood Count 3.17 M/uL (4.20-5.40)
[2024-03-31] MEDS: FLUTICASONE PROPIONATE NA SPR 16 GM BTL SCH (08:55)
[2024-03-31] MEDS: FLUTICASONE FUROATE 100MCG 14 PUFFS/INHALER INH SCH (08:55)
[2024-03-31] MEDS: METOPROLOL SUCC 50MG EXT REL TAB PO SCH (08:56)
[2024-03-31] MEDS: CLOPIDOGREL BISULFATE 75 MG TAB PO SCH (08:56)
[2024-03-31] MEDS: PANTOprazole 40 MG TAB PO SCH (08:56)
[2024-03-31] MEDS: ATORVASTATIN 40 MG TAB PO SCH (08:56)
[2024-03-31] MEDS: PARoxetine HCL 20 MG TAB PO SCH (08:56)
[2024-03-31] MEDS: AZITHROMYCIN 250 MG TAB PO SCH (08:56)
[2024-03-31] MEDS: FAMOTIDINE 20 MG TAB PO SCH (08:56)
[2024-03-31] MEDS ORDERED: NON-FORMULARY MEDICATION (Fluticasone-Umeclidin-Vilanter [Trelegy Ellipta] 100-62.5-25 mcg INH SCH (09:00)
[2024-03-31 09:02] LABS: BUN Creatinine Ratio 22.2 (10-20); Calcium 7.8 mg/dl (8.6-10.3); Creatinine Clr Calc Pharmacy 30.4 ml/min; Potassium 3.6 mmol/L (3.5-5.1)
[2024-03-31] MEDS: UMECLIDINIUM/VILANTEROL 62.5/25MCG 7 PUFFS/INHALER INH SCH (09:02)
[2024-03-31] MEDS: cefTRIAXone SODIUM 2,000 MG/50 ML BAG IV SCH (17:34)
[2024-04-01] MEDS: HYDROcodone/HOMATROPINE SYRUP 5MG/1.5MG 5ML UDP PO PRN (03:03)
[2024-04-01 07:51] LABS: Hematocrit (blood only) 27.2 % (37.0-47.0); Hemoglobin 8.9 g/dl (12.0-16.0); Mean Corpuscular Hemoglobin 29.1 pg (25.0-34.0); Mean Corpuscular Hgb Conc 32.7 g/dL (32.0-36.0); Mean Corpuscular Volume 88.9 fL (80.0-100.0); Mean Platelet Volume 11.2 fL (9.4-12.4); Platelet Count 194 K/uL (130-400); RDW Coefficient of Variation 13.3 % (11.5-14.5); RDW Standard Deviation 43.8 fL (36.4-46.3); Red Blood Count 3.06 M/uL (4.20-5.40); White Blood Count 11.39 K/ul (4.8-10.8)
[2024-04-01 08:21] LABS: BUN Creatinine Ratio 18.3 (10-20); Creatinine Clr Calc Pharmacy 30.7 ml/min; Potassium 3.6 mmol/L (3.5-5.1)
--- NOTE | 2024-04-01 09:36 | CT Scan Report ---
CT chest diagnostic wo con CLINICAL HISTORY: bronchiectasis, sob, wheezing TECHNIQUE: Multidetector row helical CT of the chest was performed. Coronal and sagittal reformations were obtained. Automated dose lowering techniques and/or adjustment according to patient size were u tilized for this exam. CT DOSE: 445.11 mGy.cm Comparison: Comparison is made to CT chest 06/16/2022 FINDINGS: Lungs and pleura: Consolidative changes are seen throughout, most prominently in the right upper lobe . There are trace bilateral pleural effusions with associated atelectasis. Heart and pericardium: Cardiomegaly is seen with biatrial enlargement. Vessels: Moderate atherosclerotic changes in the aorta and coronary arteries. Mediastinum and yoko: Subcentimeter lymph nodes are seen. Chest wall and lower neck: Unremarkable. Abdomen: Moderate hiatal hernia is seen. Bones: Degenerative changes in the thoracic spine. IMPRESSION: Multifocal consolidations compatible with pneumonia. Trace bilateral pleural effusions with underlyin g atelectasis. Follow-up to resolution is recommended. ACT 112: Negative or not required by law. Electronically signed by: Chi Golden M.D. 04/01/2024 9:34 AM
--- NOTE | 2024-04-01 11:24 | Pulmonary Consultation ---
Date of Consultation April 01, 2024 Assessment & Plan (1) Bronchiectasis with (acute) exacerbation: (2) SOB (shortness of breath): Plan Impression: 88-year-old female with known bronchiectasis and chronic dyspnea admitted with generalized weakness. She may be suffering from an upper respiratory infection. BioFire was negative and imaging studies demonstrated new multifocal airspace opacities. She has not grown resistant organisms in the past. Recommendations: 1. Multifocal pneumonia: Agree with Rocephin and azithromycin. Sputum culture if the patient is able to produce anything. May consider follow-up CT scan in 8 to 12 weeks to document resolution. Trend white blood cell count which is currently decreasing. 2. Recommend discontinuation of nebulized Mucomyst as this may cause bronchospasm. Continue pulmonary toilet with Mucinex but will increase to 1200 mg daily. Continue flutter valve. Discontinue inhaled corticosteroid given potential increased risk of infectious complications. Continue Anoro 3. Out of bed to chair as tolerated. Ambulate as tolerated 4. Wean oxygen as tolerated. Baseline oxygen requirement is 2 L. Next with the opportunity participating the care of this patient. Feel free to contact us with questions or concerns. Will continue to follow with you History of Present Illness Attending Physician: Cora Storm MD History of Present Illness Asked by hospitalist to assist in evaluation management of this patient followed in the pulmonary clinic with bronchiectasis. She is followed by Dr. Gonzales and was last seen about 5 months ago. This 88-year-old female with stable bronchiectasis maintained in the outpatient setting on 2 L of oxygen and Trelegy presented to the emergency room 03/30/2024 with complaints of generalized weakness and shortness of breath. She reports significant cold-like symptoms with postnasal drip and cough. She has not noted any increase in her oxygen requirement. She has been noted some wheezing. She was evaluated in the emergency room where imaging was unrevealing. She received Rocephin and azithromycin and was admitted to the hospitalist service. Pulmo elena was consulted for additional recommendations. The patient states that she feels like she has a cold. She has not noted any significant respiratory issues currently. No hemoptysis. No change in weight. No change in p.o. intake. She does have chronic dyspnea at baseline. Allergies Allergy/AdvReac Type Severity Reaction Status Date / Time Iodinated Contrast Media Allergy Intermediate IV dye Verified 07/18/23 14:03 -hives NSAIDS (Non-Steroidal Allergy Unknown UNKNOWN Verified 07/18/23 14:03 Anti-Inflamma primidone Allergy Unknown UNKNOWN Verified 07/18/23 14:03 sertraline Allergy Unknown UNKNOWN Verified 07/18/23 14:03 Sulfa (Sulfonamide Allergy Unknown "SULFA" Verified 07/18/23 14:03 Antibiotics) ALLERGY Home Medications Medication Instructions Recorded Confirmed Type buspirone 5 mg tablet 5 mg PO BID 06/01/21 03/30/24 History meclizine 12.5 mg tablet 12.5 mg PO TID PRN Dizziness 06/01/21 03/30/24 History famotidine 20 mg tablet (Acid 20 mg PO DAILY #90 tabs 06/02/21 03/30/24 Rx Composition Board Press Operator (famotidine)) fluticasone propionate 50 2 spray intranasal DAILY #15.8 08/24/21 03/30/24 Rx mcg/actuation nasal grams spray,suspension levothyroxine 50 mcg tablet 50 mcg PO DAILYBB 09/09/21 03/30/24 History (Synthroid) paroxetine HCl 20 mg tablet 20 mg PO DAILY 09/09/21 03/30/24 History clopidogrel 75 mg tablet 75 mg PO QAM #30 tabs 09/11/21 03/30/24 Rx Flutter Valve #1 ea 03/14/22 02/02/24 Rx Portable Oxygen #1 ea 07/26/22 02/02/24 Rx fluticasone fur. 100 mcg-umeclid 1 inh inhalation DAILY #3 Inhalers 07/26/23 03/30/24 Rx 62.5 mcg-vilant 25 mcg inhalat.powder (Trelegy Ellipta) atorvastatin 80 mg tablet 80 mg PO DAILY 07/29/23 03/30/24 History levalbuterol tartrate 45 1 inh inhalation Q6H PRN Shortness 07/29/23 03/30/24 History mcg/actuation aerosol inhaler Of Breath Or Wheezing metoprolol succinate 50 mg 50 mg PO DAILY 07/29/23 03/30/24 History tablet,extended release 24 hr omeprazole 40 mg capsule,delayed 40 mg PO DAILY 07/29/23 03/30/24 History release amlodipine 2.5 mg tablet 2.5 mg PO BID #180 tabs 08/14/23 03/30/24 Rx Patient History Medical History Essential tremor Hypercholesterolemia Osteoporosis Secondary hyperparathyroidism GERD (gastroesophageal reflux disease) Heart block Vitamin D deficiency Surgical History Hx of blepharoplasty Hx of repair of rotator cuff Hx of tonsillectomy History of breast lump removal Family History Father Hypertension Heart disease Mother Hypertension Asthma Other Cancer Diabetes Kidney disease Lung disease No family history of adverse response to anesthesia No family history of bleeding disorder Social History Smoking Status: Former smoker Second Hand Exposure: No; Do You Dip or Chew Tobacco: No; Hx Alcohol Use: Yes Alcohol type: wine Alcohol Intake Frequency Comment: occasional Hx Substance Use: No Preferred Language: Slovenian Communication Ability: Effective Interactive Marketing Strategist Required: No Beliefs That Will Affect Care: None marital status: / Current Living Situation: Alone Current Living Situation Comment: Apartment ([employer]) current occupational status: retired Other Information That Helps Us Care for You: No Feels Safe at Home: Yes Assistive Devices: Oxygen - at Night Review of Systems Review of Systems: Please refer to admission H&P. No additions or deletions Physical Exam Physical Exam: Constitutional: Patient appears to be of their stated age. Patient is in no apparent distress. Patient is well-developed. Eyes: Pupils are equal round and reactive to light. Conjunctivae are normal. Anicteric sclera. Ears nose, mouth and throat: Mallampati 1. Mild cobblestoning in the posterior oropharynx. Neck: Trachea is midline. Visual inspection is normal. Respiratory: Clear to auscultation bilaterally. No use of accessory muscles. No significant clubbing noted. Cardiovascular: Regular rate and rhythm. No murmurs. No edema. Gastrointestinal: Deferred. Musculoskeletal: No cyanosis. Patient is able to move all extremities. Skin: No rashes, warm dry and intact. Neurologic: No obvious focal neurological deficits seen. Psychiatric: Alert and oriented x3 with a euthymic affect. Results & Data Results & Data Vital Signs (Past 12 Hours) Vital Signs Temp Pulse Resp BP Pulse Ox O2 Del Method O2 Flow Rate 04/01/24 10:46 36.8 C 66 18 117/68 92 Nasal Cannula 3 04/01/24 07:46 37.5 C 79 17 148/75 H 92 Nasal Cannula 3 04/01/24 07:23 65 18 94 Nasal Cannula 3 04/01/24 02:44 36.9 C 72 18 121/65 93 Nasal Cannula 3 Critical Care Results & Data Vital Signs (Past 12 Hours) Vital Signs Temp Pulse Resp BP Pulse Ox O2 Del Method O2 Flow Rate 04/01/24 10:46 36.8 C 66 18 117/68 92 Nasal Cannula 3 04/01/24 07:46 37.5 C 79 17 148/75 H 92 Nasal Cannula 3 04/01/24 07:23 65 18 94 Nasal Cannula 3 04/01/24 02:44 36.9 C 72 18 121/65 93 Nasal Cannula 3 Lab & Micro Results (Past 24 Hours) RBC 3.06 M/uL (4.20-5.40) L 04/01/24 WBC 11.39 K/ul (4.8-10.8) H 04/01/24 Hgb 8.9 g/dl (12.0-16.0) L 04/01/24 Hct 27.2 % (37.0-47.0) L 04/01/24 MCV 88.9 fL (80.0-100.0) 04/01/24 MCH 29.1 pg (25.0-34.0) 04/01/24 MCHC 32.7 g/dL (32.0-36.0) 04/01/24 RDW Standard Deviation 43.8 fL (36.4-46.3) 04/01/24 RDW Coefficient of Variation 13.3 % (11.5-14.5) 04/01/24 Plt Count 194 K/uL (130-400) 04/01/24 MPV 11.2 fL (9.4-12.4) 04/01/24 Na 134 mmol/L (136-145) L 04/01/24 K 3.6 mmol/L (3.5-5.1) 04/01/24 Cl 101 mmol/L (98-107) 04/01/24 CO2 26 mmol/L (21-32) 04/01/24 Anion Gap 7 (3-11) 04/01/24 BUN 21 mg/dl (6-23) 04/01/24 Creatinine 1.15 mg/dl (0.6-1.2) 04/01/24 BUN/Creatinine Ratio 18.3 (10-20) 04/01/24 Glu 102 mg/dl (70-99(Fasting)) H 04/01/24 Ca 8.0 mg/dl (8.6-10.3) L 04/01/24 Calcium Level 8.0 mg/dl (8.6-10.3) L 04/01/24 06:39 Microbiology 03/30/24 15:34 Urine Culture - Final Urine,Clean Catch More than three types of organisms present, all high counts. Repeat collection recommended. No further identifications or sensitivities to follow. Diagnostic Findings (Past 24 Hours) Chest CT 04/01/24 08:28 CT chest diagnostic wo con CLINICAL HISTORY: bronchiectasis, sob, wheezing TECHNIQUE: Multidetector row helical CT of the chest was performed. Coronal and sagittal reformations were obtained. Automated dose lowering techniques and/or adjustment according to patient size were utilized for this exam. CT DOSE: 445.11 mGy.cm Comparison: Comparison is made to CT chest 06/16/2022 FINDINGS: Lungs and pleura: Consolidative changes are seen throughout, most prominently in the right upper lobe. There are trace bilateral pleural effusions with associated atelectasis. Heart and pericardium: Cardiomegaly is seen with biatrial enlargement. Vessels: Moderate atherosclerotic changes in the aorta and coronary arteries. Mediastinum and yoko: Subcentimeter lymph nodes are seen. Chest wall and lower neck: Unremarkable. Abdomen: Moderate hiatal hernia is seen. Bones: Degenerative changes in the thoracic spine. IMPRESSION: Multifocal consolidations compatible with pneumonia. Trace bilateral pleural effusions with underlying atelectasis. Follow-up to resolution is recommended. ACT 112: Negative or not required by law. Electronically signed by: Chi Golden M.D. 04/01/2024 9:34 AM I & O Totals 24 Hours 03/31/24 04/01/24 04/02/24 06:59 06:59 06:59 Intake Total 900 / 900 510 / 510 Balance 900 / 900 510 / 510 Cumulative 03/30/24 13:39 thru 04/01/24 06:00 Intake Total 1410 Balance 1410 RT Ventilator Mngmt (Last Documented) Ventilator Ordered Settings Respiratory Rate 18 04/01/24 10:46 Ventilator - PT Measurements Respiratory Rate 18 PG Care Time/CCT Total # of Minutes Spent Total Time Spent with Patient: Total time spent is greater than 50% in coordination of care (as documented) at patient's floor/unit and/or counseling patient: Coding Level of Care Code 93446 INT INP/OBS CARE 2/55MIN Diagnoses Bronchiectasis with (acute) exacerbation J47.1 SOB (shortness of breath) R06.02
--- NOTE | 2024-04-01 11:27 | Hospitalist Progress Note ---
Date of Service April 01, 2024 Assessment & Plan (1) Weakness: (2) SOB (shortness of breath): (3) Bronchiectasis with (acute) exacerbation: (4) Multifocal pneumonia: Plan Ms. Luh Ro is an 88-year-old female with PMH HTN, dyslipidemia, CAD, asthma, bronchiectasis, chronic hypoxic respiratory failure on 2 L oxygen, SSS s/p pacemaker, CKD III, depression, anxiety, hypothyroidism and others listed below admitted for evaluation of generalized weakness and sob with concern for early bronchiectasis flare. No eosinophillia and no wheezing, will hold steroids and opt for mucolytics and abx at this time. Questionable urine likely iso poor po, low suspicion of active UTI; however, abx will cover for possibility. SOB ISO early bronchiectasis flare Chronic hypoxic resp failure: Bronchiectasis: Multifocal Pneumonia Nocturnal hypoxia; wears 2LNC QHS at baseline patient with out O2 for "2 weeks", cold like symptoms, increased sputum, cough Biofire negative Continue home inhalers, Xopenex PRN; exterior wheezes on exam today; RT to give neb Consulted pulmonary given pt hx and pt follows with [facility] pulm Pulm recommends to continue CTX/Azithro, increase muccinex to 1200 bid and D/C mucomyst as this may be leading to bronchospasm, D/C Inhaled corticosteroid as may increase risk of infection, continue anoro --CT Multifocal consolidations compatible with pneumonia. Trace bilateral pleural effusions with underlying atelectasis. Follow-up to resolution is recommended. recommend repeat CT in 8-12 wks to ensure resolution Flutter valve Sputum culture ordered 03/31, still needs collected obtain MRSA swab Generalized weakness Mechanical fall doesn't ambulate with assistive device normally Was in a deep sleep and sitting on the edge of the bed; rolled out of bed, no LOC Face and CS CT negative active with HH Pt/Ot PT/OT while inpatient Anemia no apparent s/sx of bleeding hold Lovenox for now hgb outpt was 13.3 in October, today 8.9 may be dilutional component but not to this severity obtain iron panel, b12, folate abnormal UA Leukocytosis Leukocytosis showing some improvement 14.03--> 13.40 seemingly poor sample, patient without urine symptoms but notes "darker" urine, likely related to poor PO intake in last few days culture negative Hyponatremia: Na+ essentially the same on admission; received 1L NS in ED; will administer additional liter and trend suspect 2/2 poor intake Dysphonia: GERD: Saw ENT 02/17 -Exam including videostroboscopy is normal aside from thick secretions and TVF atrophy. No evidence of thrush, mass, or lesion per ENT. continue PPI/H2 latha Speech therapy eval ; reports coughing with swallowing CAD 07/30/2023 echo: EF: 65-70% History moderate mid LAD obstruction via coronary CT in 2007, history of abnormal nuclear stress testing 05/18 and patient denied heart cath and is being managed medically Continue Plavix, atorvastatin, metoprolol succinate Shoulder pain, left: 11/2023 s/p replacement under the care of Dr. Bocanegra Xray reveals stable left shoulder arthroplasty Myoflex elsa PT/OT; she just resumed driving and PT has been going well as OPT CKD III: Baseline: 1.0 Monitor renal functions, avoid nephrotoxic agents when possible Hypertension: Continue amlodipine, metoprolol succinate Anxiety and depression: Continue buspirone, paroxetine 1990 S/p pacemaker Pacemaker interrogation without arrythmia Hypothyroidism: Continue levothyroxine DVT Prophylaxis: lovenox SQ Dispo: Downgrade to med/surg, continue current treatment, not yet medically s table for d/c Full Code as per discussion with patient PCP: Heather Harper I spent a total of 51 minutes coordinating, documenting, and providing care for this patient excluding time spent in the performance of separately billed services. All of the aforementioned completed while collaborating with the assigned attending physician for a full treatment plan. Please see their addendum for further details. Admission and Anticipated Discharge Date Admission Date: March 30, 2024 Supervising Physician Co-Signing Physician Notes Attending addendum: The patient was seen and examined in medical telemetry unit She has been stable and does not feel that she is improved in any way Remains weak and lethargic still has cough and wheezing On examination Lying in bed without any acute distress Hemodynamically stable and afebrile Bibasilar coarse crackles on lung examination Admission labs and imaging studies reviewed. CT of the chest showed no follow-up pneumonia and bronchiectasis Appreciate pulmonary input and recommendation Agree with assessment plan as outlined above by Kirsten Dave PA-C and take the full responsibility of care in the hospital DR Nighat Storm Subjective Pt reports continued SOB, coughing and feeling unwell. She reports productive cough, but ends up swallowing it and this is making her nauseous. She feels she really hasn't made any improvement. At baseline she is on 2L of O2 at night. She is currently requiring 3L and she reports SOB with minimal exertion. She denies CP, hemopytsis, n/v/d, abd pain, dysuria, melena and hematochezia. Overall appetite is diminished. Review of Systems Review of Systems: All systems reviewed & are unremarkable except as noted in HPI & below Physical Exam Physical Exam: Gen: WD/WN, sitting in bedside chair, NAD, A&O x3 HEENT: Normocephalic, atraumatic, conjunctivae moist, sclerae anicteric, mucous membranes moist. Lung: Clear to Auscultation bilaterally, with b/l expiratory wheeze and prolonged expiratory phase, no rales/rhonchi Heart: Regular rate, regular rhythm, no murmurs, rubs, or gallops Abdomen: Soft, NT, ND +BS x 4 Extremities: No edema Skin: Warm, no rash, negative turgor. Results & Data Results & Data Vital Signs (Past 12 Hours) Vital Signs Temp Pulse Resp BP Pulse Ox O2 Del Method O2 Flow Rate 04/01/24 10:46 36.8 C 66 18 117/68 92 Nasal Cannula 3 04/01/24 07:46 37.5 C 79 17 148/75 H 92 Nasal Cannula 3 04/01/24 07:23 65 18 94 Nasal Cannula 3 04/01/24 02:44 36.9 C 72 18 121/65 93 Nasal Cannula 3 Laboratory Results Short CBC 04/01/24 Range/Units 06:39 WBC 11.39 H (4.8-10.8) K/ul Hgb 8.9 L (12.0-16.0) g/dl Hct 27.2 L (37.0-47.0) % Plt Count 194 (130-400) K/uL BMP 04/01/24 06:39 Sodium 134 L Potassium 3.6 Chloride 101 Carbon Dioxide 26 BUN 21 Creatinine 1.15 Glucose 102 H Calcium 8.0 L I have independently reviewed and interpreted patient's admitting labs including CBC, BMP Diagnostic Findings Chest CT 04/01/24 08:28 CT chest diagnostic wo con CLINICAL HISTORY: bronchiectasis, sob, wheezing TECHNIQUE: Multidetector row helical CT of the chest was performed. Coronal and sagittal reformations were obtained. Automated dose lowering techniques and/or adjustment according to patient size were utilized for this exam. CT DOSE: 445.11 mGy.cm Comparison: Comparison is made to CT chest 06/16/2022 FINDINGS: Lungs and pleura: Consolidative changes are seen throughout, most prominently in the right upper lobe. There are trace bilateral pleural effusions with associated atelectasis. Heart and pericardium: Cardiomegaly is seen with biatrial enlargement. Vessels: Moderate atherosclerotic changes in the aorta and coronary arteries. Mediastinum and yoko: Subcentimeter lymph nodes are seen. Chest wall and lower neck: Unremarkable. Abdomen: Moderate hiatal hernia is seen. Bones: Degenerative changes in the thoracic spine. IMPRESSION: Multifocal consolidations compatible with pneumonia. Trace bilateral pleural effusions with underlying atelectasis. Follow-up to resolution is recommended. ACT 112: Negative or not required by law. Electronically signed by: Chi Golden M.D. 04/01/2024 9:34 AM
[2024-04-01 12:48] LABS: Iron < 10 mcg/dl (35-150); Total Iron Binding Cap Calc 312 mcg/dl (250-450); Transferrin 223 mg/dl (200-360)
[2024-04-01] MEDS: guaiFENesin 600 MG TABCR PO SCH (12:49)
[2024-04-01 12:55] LABS: Ferritin 127.1 ng/ml (8-388)
--- NOTE | 2024-04-01 15:45 | Electrocardiogram Report ---
Test Reason : Blood Pressure : */* mmHG Vent. Rate : 66 BPM Atrial Rate : 66 BPM P-R Int : 170 ms QRS Dur : 132 ms QT Int : 416 ms P-R-T Axes : 72 92 -10 degrees QTcB Int : 436 ms Atrial-paced rhythm Right bundle branch block Abnormal ECG When compared with ECG of 30-Jul-2023 08:34, Electronic atrial pacemaker has replaced AV sequential or dual chamber electronic pacemaker Confirmed by Morgan Almazan ([id number]) on 04/01/2024 3:45:08 PM Referred By: REFERRED SELF Confirmed By: Morgan Almazan
[2024-04-01] MEDS: ALBUT/IPRATROP 3MG/0.5MG NEB 3 ML VIAL NEB PRN (21:33)
[2024-04-02 06:54] LABS: Basophils # (auto) 0.03 K/uL (0.00-0.20); Basophils % (auto) 0.3 %; Eosinophils # (auto) 0.26 K/uL (0.00-0.50); Eosinophils % (auto) 2.2 %; Hematocrit (blood only) 28.4 % (37.0-47.0); Hemoglobin 9.2 g/dl (12.0-16.0); Immature Granulocytes # (auto) 0.21 K/uL (0.01-0.20); Immature Granulocytes % (auto) 1.8 %; Lymphocytes # (auto) 1.26 K/uL (1.20-3.40); Lymphocytes % (auto) 10.8 %; Mean Corpuscular Hemoglobin 28.6 pg (25.0-34.0); Mean Corpuscular Hgb Conc 32.4 g/dL (32.0-36.0); Mean Corpuscular Volume 88.2 fL (80.0-100.0); Mean Platelet Volume 10.8 fL (9.4-12.4); Monocytes # (auto) 1.02 K/uL (0.11-0.59); Monocytes % (auto) 8.7 %; Neutrophils # (auto) 8.94 K/uL (1.40-6.50); Neutrophils % (auto) 76.2 %; Platelet Count 239 K/uL (130-400); RDW Coefficient of Variation 13.6 % (11.5-14.5); RDW Standard Deviation 44.1 fL (36.4-46.3); Red Blood Count 3.22 M/uL (4.20-5.40); White Blood Count 11.72 K/ul (4.8-10.8)
[2024-04-02 07:14] LABS: BUN Creatinine Ratio 16.7 (10-20); Calcium 8.2 mg/dl (8.6-10.3); Creatinine Clr Calc Pharmacy 29.4 ml/min; Potassium 3.8 mmol/L (3.5-5.1)
--- NOTE | 2024-04-02 11:51 | Gastrointestinal Consultation ---
Date of Consultation April 02, 2024 Assessment & Plan (1) Anemia: -Patient is currently on IV Protonix gtt -Continue to follow H/H -Continue to monitor for overt GI bleeding -Would focus on treatment of her pneumonia at present and plan for EGD when optimized from pulm standpoint. Supervising Physician Co-Signing Physician Notes I saw and examined this patient with our nurse practitioner and agree with her assessment and plan. Presents with 1 week history of melena. Naprosyn for shoulder pain. Need to consider NSAID induced peptic ulcer disease as well as NSAID gastropathy as cause for bleeding. Major comorbidity is multifocal pneumonia on antibiotics. Still with wheezing and shortness of breath. Continue IV PPI. Ultimate endoscopy when pulmonary status improves. History of Present Illness Reason for Consultation: Anemia Attending Physician: Cora Storm MD History of Present Illness Patient is an 88 yo female with PMH of HTN, HLD, CAD, asthma, bronchiectasis, chronic hypoxic respiratory failure on 2L O2, SSS s/p pacemaker, CKD3, depression, anxiety, hypothyroidism who initially presented to [facility] ED due to generalized weakness and SOB. She is presently admitted with a multifocal pneumonia. She is seeing pulmonology. GI has been involved due to anemia & 1 week of dark stool. H/H 9.2/28.4. She notes 3 dark loose stools today. She uses NSAIDs at home regularly. She takes Plavix. She notes a history of stroke. She notes she has had a colonoscopy before but cannot recall when. She doesn't think she has ever had alarming findings on a colonoscopy before. Allergies Allergy/AdvReac Type Severity Reaction Status Date / Time Iodinated Contrast Media Allergy Intermediate IV dye Verified 07/18/23 14:03 -hives NSAIDS (Non-Steroidal Allergy Unknown UNKNOWN Verified 07/18/23 14:03 Anti-Inflamma primidone Allergy Unknown UNKNOWN Verified 07/18/23 14:03 sertraline Allergy Unknown UNKNOWN Verified 07/18/23 14:03 Sulfa (Sulfonamide Allergy Unknown "SULFA" Verified 07/18/23 14:03 Antibiotics) ALLERGY Home Medications Medication Instructions Recorded Confirmed Type buspirone 5 mg tablet 5 mg PO BID 06/01/21 03/30/24 History meclizine 12.5 mg tablet 12.5 mg PO TID PRN Dizziness 06/01/21 03/30/24 History famotidine 20 mg tablet (Acid 20 mg PO DAILY #90 tabs 06/02/21 03/30/24 Rx Soft Sugar Supervisor (famotidine)) fluticasone propionate 50 2 spray intranasal DAILY #15.8 08/24/21 03/30/24 Rx mcg/actuation nasal grams spray,suspension levothyroxine 50 mcg tablet 50 mcg PO DAILYBB 09/09/21 03/30/24 History (Synthroid) paroxetine HCl 20 mg tablet 20 mg PO DAILY 09/09/21 03/30/24 History clopidogrel 75 mg tablet 75 mg PO QAM #30 tabs 09/11/21 03/30/24 Rx Flutter Valve #1 ea 03/14/22 02/02/24 Rx Portable Oxygen #1 ea 07/26/22 02/02/24 Rx fluticasone fur. 100 mcg-umeclid 1 inh inhalation DAILY #3 Inhalers 07/26/23 03/30/24 Rx 62.5 mcg-vilant 25 mcg inhalat.powder (Trelegy Ellipta) atorvastatin 80 mg tablet 80 mg PO DAILY 07/29/23 03/30/24 History levalbuterol tartrate 45 1 inh inhalation Q6H PRN Shortness 07/29/23 03/30/24 History mcg/actuation aerosol inhaler Of Breath Or Wheezing metoprolol succinate 50 mg 50 mg PO DAILY 07/29/23 03/30/24 History tablet,extended release 24 hr omeprazole 40 mg capsule,delayed 40 mg PO DAILY 07/29/23 03/30/24 History release amlodipine 2.5 mg tablet 2.5 mg PO BID #180 tabs 08/14/23 03/30/24 Rx Patient History Medical History Hypercholesterolemia Osteoporosis Secondary hyperparathyroidism GERD (gastroesophageal reflux disease) Heart block Vitamin D deficiency Surgical History Hx of blepharoplasty Hx of repair of rotator cuff Hx of tonsillectomy History of breast lump removal Family History Father Hypertension Heart disease Mother Hypertension Asthma Other Cancer Diabetes Kidney disease Lung disease No family history of adverse response to anesthesia No family history of bleeding disorder Social History Smoking Status: Former smoker Second Hand Exposure: No; Do You Dip or Chew Tobacco: No; Hx Alcohol Use: Yes Alcohol type: wine Alcohol Intake Frequency Comment: occasional Hx Substance Use: No Preferred Language: Czech Communication Ability: Effective Aircraft Fueler Required: No Beliefs That Will Affect Care: None marital status: / Current Living Situation: Alone Current Living Situation Comment: Apartment ([facility]) current occupational status: retired Other Information That Helps Us Care for You: No Feels Safe at Home: Yes Assistive Devices: Oxygen - at Night Review of Systems Constitutional: no fever and no chills Respiratory: no cough and no dyspnea Cardiovascular: no chest pain Gastrointestinal: + melena; no abdominal pain and no coffe e ground emesis Physical Exam Constitutional: well developed Respiratory: normal respiratory effort Auscultation: + wheezes Cardiovascular: Rate/Rhythm: regular rate Gastrointestinal (Abdomen): normal bowel sounds, soft, nontender, no hepatosplenomegaly Psychiatric: Orientation: alert and oriented x 3 Results & Data Vital Signs (Past 12 Hours) Vital Signs Temp Pulse Pulse Resp BP Pulse Ox O2 Del Method 04/02/24 08:32 75 18 98 Nasal Cannula 04/02/24 07:07 37.4 C 85 18 157/63 H 93 Nasal Cannula O2 Flow Rate 04/02/24 08:32 2 04/02/24 07:07 3 Laboratory Results Laboratory Results - last 48 hr 04/01/24 04/01/24 04/02/24 06:39 13:00 05:45 WBC 11.39 H 11.72 H RBC 3.06 L 3.22 L Hgb 8.9 L 9.2 L Hct 27.2 L 28.4 L MCV 88.9 88.2 MCH 29.1 28.6 MCHC 32.7 32.4 RDW Std Deviation 43.8 44.1 RDW Coeff of Lakshmi 13.3 13.6 Plt Count 194 239 MPV 11.2 10.8 Immature Gran % (Auto) 1.8 Neut % (Auto) 76.2 Lymph % (Auto) 10.8 Garden % (Auto) 8.7 Eos % (Auto) 2.2 Baso % (Auto) 0.3 Neut # (Auto) 8.94 H Lymph # (Auto) 1.26 Garden # (Auto) 1.02 H Eos # (Auto) 0.26 Baso # (Auto) 0.03 Immature Gran # (Auto) 0.21 H Sodium 134 L 136 Potassium 3.6 3.8 Chloride 101 102 Carbon Dioxide 26 27 Anion Gap 7 7 BUN 21 20 Creatinine 1.15 1.20 Est Cr Clr Drug Dosing 30.7 29.4 eGFR 46.39 44.08 BUN/Creatinine Ratio 18.3 16.7 Glucose 102 H 103 H Calcium 8.0 L 8.2 L Iron < 10 L TIBC 312 Transferrin 223 Transferrin % Sat TNP Ferritin 127.1 Folate 7.03 Nasal Screen MRSA (PCR) Negative PG Care Time/CCT Total # of Minutes Spent Total Time Spent with Patient: Total time spent is greater than 50% in coordination of care (as documented) at patient's floor/unit and/or counseling patient: Coding Level of Care Code 82739 INT INP/OBS CARE 3/75MIN Diagnoses Anemia D64.9 Anemia type: unspecified type (1) Anemia Anemia type: unspecified type Qualified Code(s): D64.9 - Anemia, unspecified
[2024-04-02] MEDS: PANTOprazole 40 MG/10 ML SYR IV SCH (12:03)
[2024-04-02] MEDS: ADVANCED PROBIOTIC 625 MG CAPSULE PO SCH (12:03)
--- NOTE | 2024-04-02 12:18 | Pulmonology Progress Note ---
Date of Service April 02, 2024 Assessment & Plan (1) Bronchiectasis with (acute) exacerbation: (2) SOB (shortness of breath): Plan Impression: 88-year-old female with known bronchiectasis and chronic dyspnea admitted with generalized weakness. She may be suffering from an upper respiratory infection. BioFire was negative and imaging studies demonstrated new multifocal airspace opacities. She has not grown resistant organisms in the past. Recommendations: 1. Multifocal pneumonia: Agree with Rocephin and azithromycin. Sputum culture if the patient is able to produce anything. Follow-up CT scan in 8 to 12 weeks to document resolution. 2. Continue pulmonary toilet with Mucinex but will increase to 1200 mg daily. Continue flutter valve. Discontinue inhaled corticosteroid given potential increased risk of infectious complications. Continue Anoro. 3. Out of bed to chair as tolerated. Ambulate as tolerated. 4. Wean oxygen as tolerated. Baseline oxygen requirement is 2 L. Thank you for allowing us to participate in the care of this pleasant patient. Patient is nearing her baseline at this time. She would benefit from outpatient follow-up visit in [address] scan to document resolution. Admission and Anticipated Discharge Date Admission Date: March 30, 2024 Subjective Patient seen and evaluated at bedside. She is at her baseline 2 L nasal cannula. She feels as though her shortness of breath is improving to her baseline. Review of Systems Review of Systems: As per HPI Physical Exam Physical Exam: VITAL SIGNS Vital signs and nursing notes were reviewed. GENERAL 88-year-old female appearing her stated age who is in no acute distress. Communicates well with provider and answers questions appropriately. SKIN Without rashes or lesions. NOSE Midline and without cyanosis. MOUTH/OROPHARYNX Without perioral cyanosis. NECK Neck with FROM. LUNGS Chest wall evaluation demonstrates normal chest wall A:P diameter. Auscultation reveals bibasilar rales. CARDIAC RRR with S1/S2. No murmur, rubs, or gallops appreciated. EXTREMITIES Nail clubbing not present. No peripheral cyanosis. No pretibial edema present. +3/5 radial palpated throughout. PSYCH A&Ox3 and cooperates fully with examiner. Pt is very pleasant and interacts well with examiner. Results & Data Results & Data Vital Signs (Past 12 Hours) Vital Signs Temp Pulse Pulse Resp BP Pulse Ox O2 Del Method 04/02/24 08:32 75 18 98 Nasal Cannula 04/02/24 07:07 37.4 C 85 18 157/63 H 93 Nasal Cannula O2 Flow Rate 04/02/24 08:32 2 04/02/24 07:07 3 PG Care Time/CCT Total # of Minutes Spent Total Time Spent with Patient: Total time spent is greater than 50% in coordination of care (as documented) at patient's floor/unit and/or counseling patient: Coding Level of Care Code 73787 SUB INP/OBS CARE 2/35MIN Diagnoses Bronchiectasis with (acute) exacerbation J47.1 SOB (shortness of breath) R06.02
--- NOTE | 2024-04-02 15:00 | Hospitalist Progress Note ---
Date of Service April 02, 2024 Assessment & Plan (1) Weakness: (2) SOB (shortness of breath): (3) Bronchiectasis with (acute) exacerbation: (4) Multifocal pneumonia: Plan Ms. Luh Ro is an 88-year-old female with PMH HTN, dyslipidemia, CAD, asthma, bronchiectasis, chronic hypoxic respiratory failure on 2 L oxygen, SSS s/p pacemaker, CKD III, depression, anxiety, hypothyroidism and others listed below admitted for evaluation of generalized weakness and sob with concern for early bronchiectasis flare. No eosinophillia and no wheezing, will hold steroids and opt for mucolytics and abx at this time. Questionable urine likely iso poor po, low suspicion of active UTI; however, abx will cover for possibility. SOB ISO early bronchiectasis flare Chronic hypoxic resp failure: Bronchiectasis: Multifocal Pneumonia Nocturnal hypoxia; wears 2LNC QHS at baseline patient with out O2 for "2 weeks", cold like symptoms, increased sputum, cough Biofire negative Consulted pulmonary given pt hx and pt follows with [facility] pulm Pulm recommends to continue CTX/Azithro, increase muccinex to 1200 bid and D/C mucomyst as this may be leading to bronchospasm, D/C Inhaled corticosteroid as may increase risk of infection, continue anoro --CT Multifocal consolidations compatible with pneumonia. Trace bilateral pleural effusions with underlying atelectasis. Follow-up to resolution is recommended. recommend repeat CT in 8-12 wks to ensure resolution Flutter valve Sputum culture ordered 03/31, currently pending MRSA Negative Generalized weakness Mechanical fall doesn't ambulate with assistive device normally Was in a deep sleep and sitting on the edge of the bed; rolled out of bed, no LOC Face and CS CT negative active with HH Pt/Ot PT/OT while inpatient Anemia Pt now reports Black stool x 1 week hold Lovenox for now hgb outpt was 13.3 in October, today 9.2 iron panel reviewed, iron low but ferritin normal Possible UGIB pt reports black stool x 1 week in setting of NSAID use for shoulder would explain her sudden drop in hgb She is also on plavix due to hx of coronary stent hgb stable today, 9.2, no indication to tranfuse PPI IV BID, FOBT ordered consult GI to consider inpt endoscopy once pt respiratory status improves Diarrhea pt reports loose black stool add probiotic, check stool sample and stool for cdiff given antibiotics abnormal UA Leukocytosis Urine negative Hyponatremia: Na+ essentially the same on admission; received 1L NS in ED; resolved suspect 2/2 poor intake Dysphonia: GERD: Saw ENT 02/17 -Exam including videostroboscopy is normal aside from thick secretions and TVF atrophy. No evidence of thrush, mass, or lesion per ENT. continue PPI/H2 latha Speech therapy eval ; reports coughing with swallowing CAD 07/30/2023 echo: EF: 65-70% History moderate mid LAD obstruction via coronary CT in 2007, history of abnormal nuclear stress testing 05/18 and patient denied heart cath and is being managed medically Continue Plavix, atorvastatin, metoprolol succinate Shoulder pain, left: 11/2023 s/p replacement under the care of Dr. Bocanegra Xray reveals stable left shoulder arthroplasty Myoflex elsa PT/OT; she just resumed driving and PT has been going well as OPT CKD III: Baseline: 1.0 Monitor renal functions, avoid nephrotoxic agents when possible Hypertension: Continue amlodipine, metoprolol succinate Anxiety and depression: Continue buspirone, paroxetine 1990 S/p pacemaker Pacemaker interrogation without arrhythmia Hypothyroidism: Continue levothyroxine DVT Prophylaxis: lovenox SQ on hold 04/28 concern for GIB Dispo: Downgrade to med/surg, continue current treatment, not yet medically stable for d/c Full Code as per discussion with patient PCP: Heatherbrittanie Harper I spent a total of 53 minutes coordinating, documenting, and providing care for this patient excluding time spent in the performance of separately billed services. All of the aforementioned completed while collaborating with the assigned attending physician for a full treatment plan. Please see their addendum for further details. Care coordinated with Dr. Storm Admission and Anticipated Discharge Date Admission Date: March 30, 2024 Supervising Physician Co-Signing Physician Notes Attending addendum: The patient was seen and examined in medical floor She has been complaining of weakness and feels that her symptoms have not improved Also noted to have black stool for 1 week On examination Sitting at the edge of the bed with minimal respiratory distress Saturating normally on 3 L nasal cannula Remains hemodynamically stable otherwise Chestcoarse crackles at the bases HeartS1-S2 with a 2/6 ESM over precordium Abdomenbenign CNSalert, awake and oriented x 3 remains generally weak Her labs, imaging studies and medications reviewed Has bronchiectasis with multifocal pneumonia Anemia with black tarry stool Remains stable on current management as per pulmonary and GI Agree with assessment plan as outlined above by Carmen Dave PA-C and take the full responsibility of care in the hospital Dr Nighat Storm Subjective She continues to cough and have wheezing. She feels her SOB is mildly improved from yesterday. She reports runny/loose black diarrhea. She reports black/dark stool x 1 week. She reports over the last 3 days it has become very loose. RN denies black stool and states it was green/dark brown this morning. PT denies f/c/s, chest pain, n/v/d. Review of Systems Review of Systems: All systems reviewed & are unremarkable except as noted in HPI & below Physical Exam Physical Exam: Gen: WD/WN, sitting in bedside chair, NAD, A&O x3 HEENT: Normocephalic, atraumatic, conjunctivae moist, sclerae anicteric, mucous membranes moist. Lung: Clear to Auscultation bilaterally, with b/l expiratory wheeze and prolonged expiratory phase, no rales/rhonchi Heart: Regular rate, regular rhythm, no murmurs, rubs, or gallops Abdomen: Soft, NT, ND +BS x 4 Extremities: No edema Skin: Warm, no rash, negative turgor. Results & Data Results & Data Vital Signs (Past 12 Hours) Vital Signs Temp Pulse Pulse Resp BP Pulse Ox O2 Del Method 04/02/24 14:54 37.4 C 74 16 150/65 H 93 Nasal Cannula 04/02/24 08:32 75 18 98 Nasal Cannula 04/02/24 07:07 37.4 C 85 18 157/63 H 93 Nasal Cannula O2 Flow Rate 04/02/24 14:54 3 04/02/24 08:32 2 04/02/24 07:07 3 Laboratory Results Short CBC 04/02/24 Range/Units 05:45 WBC 11.72 H (4.8-10.8) K/ul Hgb 9.2 L (12.0-16.0) g/dl Hct 28.4 L (37.0-47.0) % Plt Count 239 (130-400) K/uL BMP 04/02/24 05:45 Sodium 136 Potassium 3.8 Chloride 102 Carbon Dioxide 27 BUN 20 Creatinine 1.20 Glucose 103 H Calcium 8.2 L I have independently reviewed and interpreted patient's CBC, BMP Medications Administered Current Inpatient Medications Acetaminophen (Acetaminophen 500 Mg Tab) 1,000 mg PO Q8H PRN PRN Reason: Pain or Fever Stop: 04/29/24 19:29 Last Admin: 04/01/24 21:18 Dose: 1,000 mg Albuterol (Albut/Ipratrop 3mg/0.5mg Neb 3 Ml Vial) 3 ml NEB Q6R PRN; Protocol PRN Reason: Wheezing Stop: 04/30/24 00:59 Last Admin: 04/02/24 08:31 Dose: 3 ml Amlodipine Besylate (Amlodipine Besylate 5 Mg Tab) 2.5 mg PO BID [facility] Stop: 04/29/24 20:59 Last Admin: 04/02/24 08:13 Dose: 2.5 mg Atorvastatin Calcium (Atorvastatin 40 Mg Tab) 80 mg PO DAILY [facility] Stop: 04/30/24 08:59 Last Admin: 04/02/24 08:15 Dose: 80 mg Azithromycin (Azithromycin 250 Mg Tab) 250 mg PO QAM [facility] Stop: 04/04/24 08:59 Last Admin: 04/02/24 09:21 Dose: 250 mg Benzonatate (Benzonatate 100 Mg Capsule) 100 mg PO TID PRN PRN Reason: Cough Stop: 04/30/24 05:59 Last Admin: 04/01/24 08:13 Dose: 100 mg Buspirone HCl (Buspirone 5 Mg Tab) 5 mg PO BID [facility] Stop: 04/29/24 20:59 Last Admin: 04/02/24 08:15 Dose: 5 mg Clopidogrel Bisulfate (Clopidogrel Bisulfate 75 Mg Tab) 75 mg PO QAM [facility] Stop: 04/30/24 08:59 Last Admin: 04/02/24 08:15 Dose: 75 mg Famotidine (Famotidine 20 Mg Tab) 20 mg PO DAILY [facility] Stop: 04/30/24 08:59 Last Admin: 04/02/24 08:14 Dose: 20 mg Fluticasone Propionate (Fluticasone Propionate Na Spr 16 Gm Btl) 2 sprays NA DAILY [facility] Stop: 04/30/24 08:59 Last Admin: 04/02/24 08:15 Dose: 2 sprays Guaifenesin (Guaifenesin 600 Mg Tabcr) 1,200 mg PO Q12H [facility]SA Stop: 05/01/24 11:21 Last Admin: 04/02/24 12:04 Dose: 1,200 mg Hydrocodone Bit/Homatropine Methylb (Hydrocodone/Homatropine Syrup 5mg/1.5mg 5ml Udp) 5 ml PO Q6H PRN PRN Reason: Cough Stop: 04/15/24 02:45 Last Admin: 04/01/24 03:03 Dose: 5 ml Ceftriaxone Sodium (Rocephin) 2,000 mg in 50 mls @ 100 mls/hr IV Q24H [facility] Stop: 04/02/24 16:59 Last Infusion: 04/01/24 18:05 Dose: Infused Pantoprazole Sodium (Protonix) 40 mg in 10 mls @ 5 mls/min IV BID [facility] Stop: 05/02/24 10:29 Last Admin: 04/02/24 12:03 Dose: 5 mls/min Lactobacillus Acidophilus (Advanced Probiotic 625 Mg Capsule) 1,250 mg PO DAILY [facility] Stop: 05/02/24 10:39 Last Admin: 04/02/24 12:03 Dose: 1,250 mg Levalbuterol HCl (Levalbuterol Hcl 0.63 Mg/3 Ml Neb) 0.63 mg NEB Q4H PRN; Protocol PRN Reason: Shortness Of Breath Or Wheezing Stop: 04/29/24 19:29 Last Admin: 03/30/24 20:10 Dose: 0.63 mg Levothyroxine Sodium (Levothyroxine Sodium 50 Mcg Tablet) 50 mcg PO DAILYBB [facility] Stop: 04/30/24 06:29 Last Admin: 04/02/24 05:28 Dose: 50 mcg Metoprolol Succinate (Metoprolol Succ 50mg Ext Rel Tab) 50 mg PO DAILY [facility] Stop: 04/30/24 08:59 Last Admin: 04/02/24 08:15 Dose: 50 mg Pantoprazole Sodium (Pantoprazole 40 Mg Tab) 40 mg PO DAILY [facility] Stop: 04/30/24 08:59 Last Admin: 04/02/24 08:15 Dose: 40 mg Paroxetine HCl (Paroxetine Hcl 20 Mg Tab) 20 mg PO DAILY [facility] Stop: 04/30/24 08:59 Last Admin: 04/02/24 08:14 Dose: 20 mg Trolamine Salicylate (Trolamine Salicylate 10% Crm 255 Appln/85 Gm Tube) 1 appln EXT Q8H [facility] Stop: 04/29/24 20:59 Last Admin: 04/02/24 12:04 Dose: 1 appln Umeclidinium/Vilanterol (Umeclidinium/Vilanterol 62.5/25mcg 7 Puffs/Inhaler) 1 puffs INH DAILY [facility] Stop: 04/30/24 08:59 Last Admin: 04/02/24 08:15 Dose: 1 puffs
[2024-04-02] MEDS: cefTRIAXone SODIUM 2,000 MG/50 ML BAG IV SCH (19:49)
[2024-04-03 08:54] LABS: Hematocrit (blood only) 27.1 % (37.0-47.0); Hemoglobin 9.1 g/dl (12.0-16.0); Mean Corpuscular Hemoglobin 29.4 pg (25.0-34.0); Mean Corpuscular Hgb Conc 33.6 g/dL (32.0-36.0); Mean Corpuscular Volume 87.4 fL (80.0-100.0); Mean Platelet Volume 10.6 fL (9.4-12.4); Platelet Count 266 K/uL (130-400); RDW Coefficient of Variation 13.7 % (11.5-14.5); RDW Standard Deviation 43.9 fL (36.4-46.3); White Blood Count 10.24 K/ul (4.8-10.8)
[2024-04-03] MEDS ORDERED: ADVANCED PROBIOTIC 625 MG CAPSULE PO SCH (09:00)
[2024-04-03 09:01] LABS: Calcium 8.4 mg/dl (8.6-10.3); Creatinine Clr Calc Pharmacy 38.4 ml/min; Potassium 3.7 mmol/L (3.5-5.1)
--- NOTE | 2024-04-03 10:03 | Gastroenterology Progress Note ---
Date of Service April 03, 2024 Assessment & Plan (1) Anemia: Plan: -Continue IV PPI therapy -Continue to monitor H/H -Continue to monitor for over GI bleeding -Plan for EGD when pulmonary status improves Admission and Anticipated Discharge Date Admission Date: March 30, 2024 Supervising Physician Co-Signing Physician Notes I saw and examined this patient with our nurse practitioner and agree with her assessment and plan. Hemoglobin stable hemodynamically stable. Still with some episodes of melena but this could be old blood. Clinically unlikely having active bleeding at this time. Will ultimately need an endoscopy once her respiratory status has improved. Subjective Patient is an 88 yo female GI is following for anemia & melena. H/H has held stable at 9.1/27.1. She notes a bowel movement this morning that was dark. She notes that she does not feel that her respiratory status is at a place where she feels it should be. Review of Systems Constitutional: no fever and no chills Respiratory: + dyspnea and + wheezing Gastrointestinal: no abdominal pain, no nausea and no vomiting Physical Exam Constitutional: well developed Respiratory: normal respiratory effort and + audible wheezes Cardiovascular: Rate/Rhythm: regular rate Gastrointestinal (Abdomen): normal bowel sounds, soft, nontender, no hepatosplenomegaly Results & Data Results & Data Vital Signs (Past 12 Hours) Vital Signs Temp Pulse Pulse Resp BP Pulse Ox O2 Del Method 04/03/24 07:39 Nasal Cannula 04/03/24 07:08 37.2 C 70 18 156/70 H 94 Nasal Cannula 04/02/24 22:25 73 18 93 Nasal Cannula O2 Flow Rate 04/03/24 07:39 3 04/03/24 07:08 3 04/02/24 22:25 3 Laboratory Results Laboratory Results - last 48 hr 04/01/24 04/02/24 04/03/24 13:00 05:45 08:11 WBC 11.72 H 10.24 RBC 3.22 L 3.10 L Hgb 9.2 L 9.1 L Hct 28.4 L 27.1 L MCV 88.2 87.4 MCH 28.6 29.4 MCHC 32.4 33.6 RDW Std Deviation 44.1 43.9 RDW Coeff of Lakshmi 13.6 13.7 Plt Count 239 266 MPV 10.8 10.6 Immature Gran % (Auto) 1.8 Neut % (Auto) 76.2 Lymph % (Auto) 10.8 Gilmer % (Auto) 8.7 Eos % (Auto) 2.2 Baso % (Auto) 0.3 Neut # (Auto) 8.94 H Lymph # (Auto) 1.26 Gilmer # (Auto) 1.02 H Eos # (Auto) 0.26 Baso # (Auto) 0.03 Immature Gran # (Auto) 0.21 H Sodium 136 133 L Potassium 3.8 3.7 Chloride 102 101 Carbon Dioxide 27 25 Anion Gap 7 7 BUN 20 12 Creatinine 1.20 0.92 Est Cr Clr Drug Dosing 29.4 38.4 eGFR 44.08 60.64 BUN/Creatinine Ratio 16.7 13.0 Glucose 103 H 127 H Calcium 8.2 L 8.4 L Magnesium 2.0 Nasal Screen MRSA (PCR) Negative Stool Occult Bld Scrn Stl C. cayetanensis PCR Stool Rotavirus A PCR Stl Adenov F 40/ PCR Stool Astrovirus (PCR) Stool Campylobacter PCR Stl C. diff Tox B Gene Stool Cryptosporidium PCR Stl E.coli Shiga Tox PCR Stl Enterotoxigenic E PCR Stool EPEC (PCR) Stool EAEC (PCR) Stl E. histolytica PCR Stool Giardia Lamblia PCR Stool Salmonella PCR Stool Sapovirus (PCR) Stl P. shigelloides PCR Stl Shigella/EIEC PCR St Y.enterocolitica PCR Stool Vibrio (PCR) Stl Vibrio cholerae PCR Stl Norovirus GI/GII PCR 04/03/24 Unknown WBC RBC Hgb Hct MCV MCH MCHC RDW Std Deviation RDW Coeff of Lakshmi Plt Count MPV Immature Gran % (Auto) Neut % (Auto) Lymph % (Auto) Gilmer % (Auto) Eos % (Auto) Baso % (Auto) Neut # (Auto) Lymph # (Auto) Gilmer # (Auto) Eos # (Auto) Baso # (Auto) Immature Gran # (Auto) Sodium Potassium Chloride Carbon Dioxide Anion Gap BUN Creatinine Est Cr Clr Drug Dosing eGFR BUN/Creatinine Ratio Glucose Calcium Magnesium Nasal Screen MRSA (PCR) Stool Occult Bld Scrn Negative Stl C. cayetanensis PCR Not Detected Stool Rotavirus A PCR Not Detected Stl Adenov F 40 PCR Not Detected Stool Astrovirus (PCR) Not Detected Stool Campylobacter PCR Not Detected Stl C. diff Tox B Gene Negative Cdiff Gene Stool Cryptosporidium PCR Not Detected Stl E.coli Shiga Tox PCR Not Detected Stl Enterotoxigenic E PCR Not Detected Stool EPEC (PCR) Not Detected Stool EAEC (PCR) Not Detected Stl E. histolytica PCR Not Detected Stool Giardia Lamblia PCR Not Detected Stool Salmonella PCR Not Detected Stool Sapovirus (PCR) Not Detected Stl P. shigelloides PCR Not Detected Stl Shigella/EIEC PCR Not Detected St Y.enterocolitica PCR Not Detected Stool Vibrio (PCR) Not Detected Stl Vibrio cholerae PCR Not Detected Stl Norovirus GI/GII PCR Not Detected PG Care Time/CCT Total # of Minutes Spent Total Time Spent with Patient: Total time spent is greater than 50% in coordination of care (as documented) at patient's floor/unit and/or counseling patient: Coding Level of Care Code 73845 SUB INP/OBS CARE 3/50MIN Diagnoses Anemia D64.9 Anemia type: unspecified type (1) Anemia Anemia type: unspecified type Qualified Code(s): D64.9 - Anemia, unspecified
--- NOTE | 2024-04-03 10:09 | Hospitalist Progress Note ---
<Statement entered by Lacho Street, DO - 04/03/24 17:26> I have seen and examined the patient and have discussed the case with the provider above. I have reviewed the advanced practitioner's documentation, and I agree with, and take responsibility for that plan of care. Patient reports feeling significantly better. Breathing is significantly better. Continue to titrate oxygen, reports wears oxygen at night and occasionally during the day. Believe the patient has significantly improved and is medically able to undergo anticipated EGD tomorrow by GI Date of Service April 03, 2024 Assessment & Plan (1) Multifocal pneumonia: (2) Bronchiectasis with (acute) exacerbation: (3) Acute anemia: (4) Abnormal urinalysis: Plan Luh Ro is an 88-year-old female with past medical history significant for HTN, HLD, CAD, asthma, bronchiectasis, chronic hypoxic respiratory failure [on 2L via NC at baseline], SSS s/p pacemaker placement, CKD stage III, depression/anxiety, hypothyroidism and others listed below who was admitted on 03/30/2024 for evaluation of generalized weakness and SOB. admitted for evaluation of generalized weakness and sob with concern for early bronchiectasis flare. No eosinophillia and no wheezing, will hold steroids and opt for mucolytics and abx at this time. Questionable urine likely iso poor po, low suspicion of active UTI; however, abx will cover for possibility. Multifocal Pneumonia, Bronchiectasis Flare Chronic Hypoxic Respiratory Failure on Supplemental O2: CXR on admission concerning for multifocal PNA. Respiratory Biofire panel was negative. Pulmonology was consulted given that the patient follows with [facility] [place] [facility] as an outpatient. She wears 2L via NC at baseline however she did previously require 3L earlier this admission. Today she is back at her baseline 2L. She was on IV Zithromax + Rocephin; downgraded to PO cefuroxime today by pulmonology for a total of 5 days. Final sputum cultures still pending. She has not grown resistant organisms in the past. Chest CT done 04/01/2024 consistent with multiple consolidations compatible with PNA, trace b/l pleural effusions with underlying atelectasis. Continue pulmonary toilet including incentive spirometry, flutter valve, Mucinex & PRN nebs. MRSA nasal swab negative. Continue home inhaler. Follow-up CT scan in 8 to 12 weeks to document resolution per pulmonology's recommendation. 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 Patient does not ambulate with assistive devices at baseline. She was in bed and attempted to get up a few days prior to admission but unfortunately rolled out of bed. She did strike her head and sustained a bruise to her left eye but never lost consciousness. She mentions that she typically has trouble with her left shoulder which was replaced in 11/[address] Alegria. Initial evaluation including head CT, face CT and cervical spine CT in the ED were all unremarkab le. Patient has active home therapy twice a week. PT/OT while inpatient. Plan for patient to return home when medically stable. Acute Anemia, C/F Possible UGIB: Patient reporting black/tarry, looser stool x 1 week ISO NSAID use for left shoulder pain which she landed on during the fall as mentioned above. GI consulted. Holding SQ Lovenox for now. Hgb dropped from 13.3 back in October 2023 --> 11 on admission --> 8.9 on 04/01/2024 --> 9.1 today. Iron panel reviewed - iron low but ferritin WNL. Currently on IV PPI BID. Per GI --> "Need to consider NSAID-induced peptic ulcer disease as well as NSAID gastropathy as the cause of bleeding." FOBT negative today. Stool cultures completed today and were unremarkable. She is on Plavix due to history of coronary stent placement. No indication to transfuse at this time. GI considering inpatient EGD possibly tomorrow if her respiratory status continues to improve. Continue to monitor Hgb closely. Abnormal UA, C/F Possible UTI: UA on admission with 1+ bacteria. Seemingly poor sample, patient without urinary symptoms but notes "darker" urine - potentially related to poor intake in last few days. Urine culture with more than 3 types of organism present, all high counts (repeat collection recommended); however patient was covered empirically with the IV Rocephin above. Given her lack of urinary complaints and overall clinical improvement, no need to repeat urine culture at this time. Patient covered for possible UTI with ABX regimen noted above. Hyponatremia: Suspect 2/2 poor oral intake. Received 1L NSS in the ED. Sodium remains low but stable, will continue to monitor. Dysphonia, GERD: Patient saw [facility] [place] [place] [facility] in 01/2024 - Exam including videostroboscopy was normal aside from thick secretions and TVF atrophy. No evidence of thrush, mass, or lesion per ENT. Continue home PO PPI once IV PPI is completed as per above. Can continue home H2 latha. No formal speech therapy assessment warranted at this time. CAD S/P Stenting, HLD & HTN: 07/2023 Echocardiogram: EF: 65-70%. History of moderate mid LAD obstruction via coronary CT in 2007, history of abnormal nuclear stress testing 04/2021 and patient denied heart catheterization. She is being managed medically. Continue Plavix, atorvastatin, metoprolol succinate and amlodipine. BP remains stable. 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 Alegria. Left shoulder XR reveals stable left shoulder arthroplasty, no acute bony abnormalities. Myoflex scheduled. Continue PT/OT. Other Chronic Medical Conditions: * Depression/Anxiety - Continue BuSpar, paroxetine. SSS S/P Pacemaker Placement - Pacemaker interrogation without arrhythmia. * Hypothyroidism - Continue levothyroxine. CKD Stage III - Cr remains stable, b aseline Cr ~ 1.0 per chart review. Continue to monitor renal function, avoid nephrotoxic agents when able. DVT Prophylaxis: SCDs/TEDs for now, SQ Lovenox on hold 2/2 melena as per above. Code Status: FULL CODE PCP: Heather Harper MD Disposition: Downgraded to Med/Surg, continue current treatments. Not yet medically stable for discharge pending EGD evaluation. Patient seen in collaboration with Dr. Street. Please see addendum. I spent a total of 50 minutes coordinating, documenting, and providing care for this patient excluding time spent in the performance of separately billed services. This included personally reviewing all current laboratories and imaging studies, medical reconciliation, outpatient chart review and discussion with specialists. This chart was completed in part utilizing Speech Voice Recognition Software. Grammatical errors, random word insertions, pronoun errors, and incomplete sentences are an occasional consequence of this system due to software limitations, ambient noise, and hardware issues. Any formal questions or concerns about the content, text, or information contained within the body of this dictation should be directly addressed to the provider for clarification. Admission and Anticipated Discharge Date Admission Date: March 30, 2024 Subjective Patient seen and examined at bedside this morning. She reports feeling better overall this morning. Cough is improving and she is not producing a significant amount of phlegm. She denies any chest pain or palpitations. She has been up ambulating to the restroom this morning. She ambulates well without significant assistance. She notes a bowel movement this morning which was dark, no evidence of hematochezia. Spoke with nursing staff to titrate patient back down to her 2L via NC (which is her baseline). Review of Systems Review of Systems: At least ten systems reviewed and negative, except as noted in the subjective section. Physical Exam Physical Exam: General: WD/WN, NAD, sitting up in bed, very pleasant, conversing appropriately. A+Ox3, euthymic affect. HEENT: Normocephalic, atraumatic. Conjunctivae normal. External ear and nose normal, oropharynx normal. Respiratory: Normal respiratory effort, very mild expiratory wheezing throughout. No accessory muscle use. Cardiovascular: Regular rate, rhythm, normal peripheral pulses, no BLE edema. Vessels: No JVD. Abdomen/GI: Normal bowel sounds, soft, nondistended, nontender to palpation in all quadrants. Extremities/Musculoskeletal: No cyanosis or clubbing, extremities motor strength intact/moves all extremities. Neurologic: No overt focal deficits, CN's II-XI not formally tested but appear grossly intact bilaterally. Results & Data Results & Data Vital Signs (Past 12 Hours) Vital Signs Temp Pulse Pulse Resp BP Pulse Ox O2 Del Method 04/03/24 07:39 Nasal Cannula 04/03/24 07:08 37.2 C 70 18 156/70 H 94 Nasal Cannula 04/02/24 22:25 73 18 93 Nasal Cannula O2 Flow Rate 04/03/24 07:39 3 04/03/24 07:08 3 04/02/24 22:25 3 Laboratory Results Short CBC 04/03/24 Range/Units 08:11 WBC 10.24 (4.8-10.8) K/ul Hgb 9.1 L (12.0-16.0) g/dl Hct 27.1 L (37.0-47.0) % Plt Count 266 (130-400) K/uL BMP 04/03/24 08:11 Sodium 133 L Potassium 3.7 Chloride 101 Carbon Dioxide 25 BUN 12 Creatinine 0.92 Glucose 127 H Calcium 8.4 L
--- NOTE | 2024-04-03 10:52 | Pulmonology Progress Note ---
Date of Service April 03, 2024 Assessment & Plan (1) Bronchiectasis with (acute) exacerbation: (2) SOB (shortness of breath): Plan Impression: 88-year-old female with known bronchiectasis and chronic dyspnea admitted with generalized weakness. She may be suffering from an upper respiratory infection. BioFire was negative and imaging studies demonstrated new multifocal airspace opacities. She has not grown resistant organisms in the past. Recommendations: 1. Multifocal pneumonia: Agree with Rocephin and azithromycin. Cultures with no growth to date.. Follow-up CT scan in 8 to 12 weeks to document resolution. Okay to de-escalate to oral antibiotics for total of 5 days. 2. Continue pulmonary toilet with Mucinex. Continue flutter valve. Continue Anoro. 3. Out of bed to chair as tolerated. Ambulate as tolerated. 4. Wean oxygen as tolerated. Baseline oxygen requirement is 2 L. She is at her baseline Patient appears to be back to her baseline from a pulmonary standpoint. She would benefit from outpatient follow-up visit in [address] scan to document resolution. Pulmonary will sign off. Feel free to contact us with questions or concerns Admission and Anticipated Discharge Date Admission Date: March 30, 2024 Subjective Patient seen and examined. EMR reviewed. Patient states that she is feeling better. Her cough is less. She is not producing significant phlegm. She denies chest pain or palpitations. No fevers chills or night sweats. She has been up and ambulating to the restroom. She is currently undergoing evaluation for anemia Review of Systems 2 Review of Systems: All systems reviewed & are unremarkable except as noted in Subjective Physical Exam 2 Constitutional: WD/WN, vitals as above Neck: trachea midline, no thyromegaly Respiratory: normal respiratory effort, lungs clear to auscultation Cardiovascular: RRR, no murmur, no edema Gastrointestinal (Abdomen): normal bowel sounds, soft, nontender, no hepatosplenomegaly Musculoskeletal: Extremities: extremities normal to inspection Skin: no rashes, warm and dry Neurologic: Nonfocal exam Lymphatic: no cervical lymphadenopathy Results & Data Results & Data Vital Signs (Past 12 Hours) Vital Signs Temp Pulse Resp BP Pulse Ox O2 Del Method O2 Flow Rate 04/03/24 07:39 Nasal Cannula 3 04/03/24 07:08 37.2 C 70 18 156/70 H 94 Nasal Cannula 3 Laboratory Results 04/03/24 08:11 04/03/24 08:11 Diagnostic Findings No new imaging PG Care Time/CCT Total # of Minutes Spent Total Time Spent with Patient: Total time spent is greater than 50% in coordination of care (as documented) at patient's floor/unit and/or counseling patient: Coding Level of Care Code 44172 SUB INP/OBS CARE 2/35MIN Diagnoses Bronchiectasis with (acute) exacerbation J47.1 SOB (shortness of breath) R06.02
[2024-04-03] MEDS: cefUROXime axetil 500 MG TAB PO SCH (11:35)
[2024-04-03 12:07] LABS: Adenovirus F 40/41 PCR Not Detected (NotDetected); Astrovirus PCR Not Detected (NotDetected); Campylobacter PCR Not Detected (NotDetected); Cryptosporidium PCR Not Detected (NotDetected); Cyclospora cayetanensis PCR Not Detected (NotDetected); Entamoeba histolytica PCR Not Detected (NotDetected); Enteroaggregative E.coli(EAEC) Not Detected (NotDetected); Enteropathogenic E.coli (EPEC) Not Detected (NotDetected); Enterotoxigenic E.coli (ETEC) Not Detected (NotDetected); Giardia lamblia PCR Not Detected (NotDetected); Norovirus GI/GII PCR Not Detected (NotDetected); Plesiomonas shigelloides PCR Not Detected (NotDetected); Rotavirus A PCR Not Detected (NotDetected); Salmonella PCR Not Detected (NotDetected); Sapovirus PCR Not Detected (NotDetected); Shiga-like Toxin E.coli (STEC) Not Detected (NotDetected); Shigella/Enteroinvasive E.coli Not Detected (NotDetected); Vibrio cholerae PCR Not Detected (NotDetected); Vibrio species PCR Not Detected (NotDetected); Yersinia enterocolitica PCR Not Detected (NotDetected)
--- NOTE | 2024-04-04 07:15 | Hospitalist Progress Note ---
<Statement entered by Lacho Street, - 04/04/24 13:18> I have seen and examined the patient and have discussed the case with the provider above. I have reviewed the advanced practitioner's documentation, and I agree with, and take responsibility for that plan of care. Patient seen prior to EGD, no acute events overnight. Anticipating procedure. Reviewed EGD report, no evidence of bleeding or abnormalities. Patient's anemia may be just due to acute illness can be continued to be monitored outpatient Can transition to oral medications, advance diet Anticipate possible discharge tomorrow Date of Service April 04, 2024 Assessment & Plan (1) Multifocal pneumonia: (2) Bronchiectasis with (acute) exacerbation: (3) Acute anemia: (4) Abnormal urinalysis: Plan Luh Ro is an 88-year-old female with past medical history significant for HTN, HLD, CAD, asthma, bronchiectasis, chronic hypoxic respiratory failure [on 2L via NC at baseline], SSS s/p pacemaker placement, CKD stage III, depression/anxiety, hypothyroidism and others listed below who was admitted on 03/30/2024 for evaluation of generalized weakness and SOB. She is being managed for the following: Multifocal Pneumonia, Bronchiectasis Flare Chronic Hypoxic Respiratory Failure on Supplemental O2: CXR on admission concerning for multifocal PNA. Respiratory Biofire panel was negative. Pulmonology was consulted given that the patient follows with [facility] as an outpatient. She wears 2L via NC at baseline however she did previously require 3L earlier this admission. Now she is back at her baseline 2L . She was on IV Zithromax + Rocephin; downgraded to po cefuroxime yesterday by pulmonology. Pulmonology signed off on patient yesterday. Currently on day #6 of ABX in total (including IV + po). Plan to treat for a total of 10 days - last day of treatment being 04/08/2023. 2 sputum cultures finalized and was unremarkable. Other sputum culture still pending. She has not grown resistant organisms in the past. Chest CT performed on 04/01/2024 consistent with multiple consolidations compatible with PNA, trace b/l pleural effusions with underlying atelectasis. Upper expiratory wheezing on exam today. Continue pulmonary toilet including incentive spirometry, flutter valve, Mucinex & PRN nebs. MRSA nasal swab negative. Continue home inhaler. Follow-up CT scan in 8 to 12 weeks to document resolution per pulmonology's recommendation. 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 Patient does not ambulate with assistive devices at baseline. She was in bed and attempted to get up a few days prior to admission but unfortunately rolled out of bed. She did strike her head and sustained a bruise to her left eye but never lost consciousness. She mentions that she typically has trouble with her left shoulder which was replaced in 11/[address] Alegria. Initial evaluation including head CT, face CT and cervical spine CT in the ED were all unremarkable. Patient has active home therapy twice a week. PT/OT while inpatient. Plan for patient to return home when medically stable. Acute Anemia, C/F Possible UGIB: Patient reporting black/tarry, looser stool x 1 week ISO NSAID use for left shoulder pain which she landed on during the fall as mentioned above. GI consulted. Holding SQ Lovenox for now. Hgb dropped from 13.3 back in October 2023 --> 11 on admission --> 8.9 on 04/01/2024 --> 9.1 yesterday. Hgb stable at 9.1 again today. Iron panel reviewed - iron low but ferritin WNL. Currently on IV PPI BID. Continue to monitor Hgb closely. Per GI --> "Need to consider NSAID-induced peptic ulcer disease as well as NSAID gastropathy as the cause of bleeding." FOBT negative. Stool cultures/C. diff testing negative. She is on Plavix due to history of coronary stent placement. No indication to transfuse at this time. Patient has been NPO since midnight; plan for EGD with GI today. Abnormal UA, C/F Possible UTI: UA on admission with 1+ bacteria. Seemingly poor sample, patient without urinary symptoms but notes "darker" urine - potentially related to poor intake in last few days prior to admission. Urine culture with more than 3 types of organism present, all high counts (repeat collection was recommended); however, patient was covered empirically with the IV Rocephin as per above. Given her lack of urinary complaints and overall clinical improvement, no need to repeat urine culture at this time. Patient covered for possible UTI with ABX regimen noted above. Hyponatremia: Suspect 2/2 poor oral intake. Received 1L NSS in the ED. Sodium WNL today. Dysphonia, GERD: Patient saw [facility] in 01/2024 - Exam including videostrobos copy was normal aside from thick secretions and TVF atrophy. No evidence of thrush, mass, or lesion per ENT. Continue home po PPI once IV PPI is completed as per above. Can continue home H2 latha. No formal speech therapy assessment warranted at this time. CAD S/P Stenting, HLD & HTN: 07/2023 Echocardiogram: EF: 65-70%. History of moderate mid LAD obstruction via coronary CT in 2007, history of abnormal nuclear stress testing 04/2021 and patient denied heart catheterization. She is being managed medically. Continue Plavix, atorvastatin, metoprolol succinate and amlodipine. BP slightly elevated today but stable. 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 Alegria. Left shoulder XR reveals stable left shoulder arthroplasty, no acute bony abnormalities. Myoflex scheduled. Continue PT/OT. Other Chronic Medical Conditions: * Depression/Anxiety - Continue BuSpar, paroxetine. SSS S/P Pacemaker Placement - Pacemaker interrogation without arrhythmia. * Hypothyroidism - Continue levothyroxine. CKD Stage III - Cr remains stable, baseline Cr ~ 1.0 per chart review. Continue to monitor renal function, avoid nephrotoxic agents when able. DVT Prophylaxis: SCDs/TEDs for now, SQ Lovenox on hold 2/2 melena as per above. Code Status: FULL CODE PCP: Heather Harper MD Disposition: Downgraded to Med/Surg, continue current treatments. Not yet medically stable for discharge; pending EGD evaluation today. Patient seen in collaboration with Dr. Street. Please see addendum. I spent a total of 35 minutes coordinating, documenting, and providing care for this patient excluding time spent in the performance of separately billed services. This included personally reviewing all current laboratories and imaging studies, medical reconciliation, outpatient chart review and discussion with specialists. This chart was completed in part utilizing Speech Voice Recognition Software. Grammatical errors, random word insertions, pronoun errors, and incomplete sentences are an occasional consequence of this system due to software limitations, ambient noise, and hardware issues. Any formal questions or concerns about the content, text, or information contained within the body of this dictation should be directly addressed to the provider for clarification. Admission and Anticipated Discharge Date Admission Date: March 30, 2024 Subjective Patient seen and examined at bedside this morning. Reports she feels well overall. Her cough is improved. Denies any chest pain, shortness of breath or palpitations. No acute events overnight. She has been up and ambulating to the restroom. She had a breathing treatment this morning with respiratory therapy. Notes some mild wheezing. She is back to her baseline O2 requirement of 2L via NC. Last BM was yesterday. She denies any abdominal pain. Review of Systems Review of Systems: At least ten systems reviewed and negative, except as noted in the subjective section. Physical Exam Physical Exam: General: WD/WN, NAD, laying down in bed, very pleasant, conversing appropriately. A+Ox3, euthymic affect. HEENT: Normocephalic, atraumatic. Conjunctivae normal. External ear and nose normal, oropharynx normal. Respiratory: Normal respiratory effort, upper airway wheezing/breath sounds decreased throughout. Cardiovascular: Regular rate, rhythm, normal peripheral pulses, no BLE edema. Vessels: No JVD. Abdomen/GI: Normal bowel sounds, soft, nondistended, nontender to palpation in all quadrants. Extremities/Musculoskeletal: No cyanosis or clubbing, extremities motor strength intact/moves all extremities. Neurologic: No overt focal deficits, CN's II-XI not formally tested but appear grossly intact bilaterally. Results & Data Results & Data Vital Signs (Past 12 Hours) Vital Signs Temp Pulse Resp BP Pulse Ox O2 Del Method O2 Flow Rate 04/04/24 07:11 37.1 C 83 16 144/64 H 93 Nasal Cannula 2 04/03/24 22:28 67 18 97 Nasal Cannula 3 04/03/24 20:25 Nasal Cannula 3 04/03/24 19:34 37.1 C 72 16 151/74 H 94 Nasal Cannula 3 Laboratory Results Short CBC 04/04/24 Range/Units 07:08 WBC 9.97 (4.8-10.8) K/ul Hgb 9.1 L (12.0-16.0) g/dl Hct 27.5 L (37.0-47.0) % Plt Count 272 (130-400) K/uL BMP 04/04/24 07:08 Sodium 137 Potassium 3.8 Chloride 104 Carbon Dioxide 26 BUN 14 Creatinine 0.87 Glucose 118 H Calcium 8.5 L
[2024-04-04 07:35] LABS: Hematocrit (blood only) 27.5 % (37.0-47.0); Hemoglobin 9.1 g/dl (12.0-16.0); Mean Corpuscular Hemoglobin 28.9 pg (25.0-34.0); Mean Corpuscular Hgb Conc 33.1 g/dL (32.0-36.0); Mean Corpuscular Volume 87.3 fL (80.0-100.0); Mean Platelet Volume 10.1 fL (9.4-12.4); Platelet Count 272 K/uL (130-400); RDW Coefficient of Variation 13.5 % (11.5-14.5); RDW Standard Deviation 42.9 fL (36.4-46.3); Red Blood Count 3.15 M/uL (4.20-5.40); White Blood Count 9.97 K/ul (4.8-10.8)
[2024-04-04 07:49] LABS: BUN Creatinine Ratio 16.1 (10-20); Calcium 8.5 mg/dl (8.6-10.3); Creatinine Clr Calc Pharmacy 40.6 ml/min; Potassium 3.8 mmol/L (3.5-5.1)
--- NOTE | 2024-04-04 09:39 | History & Physical Bridge Note ---
Date of Service April 04, 2024 History & Physical Bridge Note I have examined the patient, reviewed the History & Physical and in the interval since the performance of the History & Physical I have noted the following changes of clinical significance: no changes noted. Patient tells me that her breathing is better today. had breathing treatment this morning. had some dark stool yesterday per patient. no sob, chest pain, abdominal pain, nausea, vomiting. she has been NPO. - Discussed with Dr Loera and will try to attempt EGD today to further evaluate anemia/dark stools. Supervising Physician Co-Signing Physician Notes I saw and examined this patient with our nurse practitioner and agree with her assessment and plan
--- NOTE | 2024-04-04 10:51 | Anesthesiology Consultation ---
Date of Service April 04, 2024 Assessment & Plan Chart Review Chart Review: Acceptable Risk for Surgery and Patient NOT seen in Pre Admission Testing Consults Requested none ASA ASA3 Proposed Anesthesia Anesthesia Type: MAC Risk / Benefits Reviewed With: PT / POA / Parent / Guardian, Accepts Plan and Informed Consent Obtained History Surgery Operation Date: 04/04/24 17:10 Proposed Procedures p Esophagogastroduodenoscopy Dr. Luz Maria Loera MD Height/Weight Height: 5 ft Weight: 70.2 kg Allergies Allergy/AdvReac Type Severity Reaction Status Date / Time Iodinated Contrast Media Allergy Intermediate IV dye Verified 04/04/24 10:44 -hives NSAIDS (Non-Steroidal Allergy Unknown UNKNOWN Verified 04/04/24 10:44 Anti-Inflamma primidone Allergy Unknown UNKNOWN Verified 04/04/24 10:44 sertraline Allergy Unknown UNKNOWN Verified 04/04/24 10:44 Sulfa (Sulfonamide Allergy Unknown "SULFA" Verified 04/04/24 10:44 Antibiotics) ALLERGY Medications Home Medications Medication Instructions Recorded Confirmed Last Taken buspirone 5 mg tablet 5 mg PO BID 06/01/21 03/30/24 09/14/21 meclizine 12.5 mg tablet 12.5 mg PO TID PRN Dizziness 06/01/21 03/30/24 Unknown famotidine 20 mg tablet (Acid 20 mg PO DAILY #90 tabs 06/02/21 03/30/24 09/15/21 High Lead Yarder (famotidine)) fluticasone propionate 50 2 spray intranasal DAILY #15.8 08/24/21 03/30/24 09/14/21 mcg/actuation nasal grams spray,suspension levothyroxine 50 mcg tablet 50 mcg PO DAILYBB 09/09/21 03/30/24 09/14/21 (Synthroid) paroxetine HCl 20 mg tablet 20 mg PO DAILY 09/09/21 03/30/24 09/14/21 clopidogrel 75 mg tablet 75 mg PO QAM #30 tabs 09/11/21 03/30/24 04/06/22 Flutter Valve #1 ea 03/14/22 02/02/24 Unknown Portable Oxygen #1 ea 07/26/22 02/02/24 Unknown fluticasone fur. 100 mcg-umeclid 1 inh inhalation DAILY #3 Inhalers 07/26/23 03/30/24 Unknown 62.5 mcg-vilant 25 mcg inhalat.powder (Trelegy Ellipta) atorvastatin 80 mg tablet 80 mg PO DAILY 07/29/23 03/30/24 Unknown levalbuterol tartrate 45 1 inh inhalation Q6H PRN Shortness 07/29/23 03/30/24 Unknown mcg/actuation aerosol inhaler Of Breath Or Wheezing metoprolol succinate 50 mg 50 mg PO DAILY 07/29/23 03/30/24 Unknown tablet,extended release 24 hr omeprazole 40 mg capsule,delayed 40 mg PO DAILY 07/29/23 03/30/24 Unknown release amlodipine 2.5 mg tablet 2.5 mg PO BID #180 tabs 08/14/23 03/30/24 Unknown Active Medications Generic Name Dose Route Start Last Admin Trade Name Freq PRN Reason Stop Dose Admin Acetaminophen 1,000 mg 03/30/24 19:30 04/01/24 21:18 Acetaminophen 500 Mg Tab PO 04/29/24 19:29 1,000 mg Q8H PRN Administration Pain or Fever Albuterol 3 ml 04/01/24 11:23 04/03/24 22:26 Albut/Ipratrop 3mg/0.5mg Neb 3 Ml Vial NEB 04/30/24 00:59 3 ml Q6R PRN Administration Wheezing Protocol Amlodipine Besylate 2.5 mg 03/30/24 21:00 04/04/24 09:56 Amlodipine Besylate 5 Mg Tab PO 04/29/24 20:59 2.5 mg BID SMILEY Administration Atorvastatin Calcium 80 mg 03/31/24 09:00 04/04/24 09:55 Atorvastatin 40 Mg Tab PO 04/30/24 08:59 80 mg DAILY SMILEY Administration Benzonatate 100 mg 03/31/24 06:00 04/01/24 08:13 Benzonatate 100 Mg Capsule PO 04/30/24 05:59 100 mg TID PRN Administration Cough Buspirone HCl 5 mg 03/30/24 21:00 04/04/24 09:57 Buspirone 5 Mg Tab PO 04/29/24 20:59 5 mg BID SMILEY Administration Cefuroxime Axetil 500 mg 04/03/24 11:00 04/04/24 09:57 Cefuroxime Axetil 500 Mg Tab PO 04/06/24 10:59 500 mg BID SMILEY Administration Clopidogrel Bisulfate 75 mg 03/31/24 09:00 04/03/24 08:34 Clopidogrel Bisulfate 75 Mg Tab PO 04/30/24 08:59 75 mg QAM SMILEY Administration Famotidine 20 mg 03/31/24 09:00 04/04/24 09:59 Famotidine 20 Mg Tab PO 04/30/24 08:59 20 mg DAILY SMILEY Administration Fluticasone Propionate 2 sprays 03/31/24 09:00 04/04/24 09:36 Fluticasone Propionate Na Spr 16 Gm Btl NA 04/30/24 08:59 2 sprays DAILY SMILEY Administration Guaifenesin 1,200 mg 04/01/24 11:23 04/03/24 22:55 Guaifenesin 600 Mg Tabcr PO 05/01/24 11:21 1,200 mg Q12H SMILEY Administration Hydrocodone Bit/Homatropine Methylb 5 ml 04/01/24 02:46 04/02/24 20:06 Hydrocodone/Homatropine Syrup 5mg/1.5mg 5ml Udp PO 04/15/24 02:45 5 ml Q6H PRN Administration Cough Pantoprazole Sodium 40 mg in 10 mls @ 5 mls/min 04/02/24 10:30 04/04/24 09:37 Protonix IV 05/02/24 10:29 5 mls/min BID SMILEY Administration Lactobacillus Acidophilus 1,250 mg 04/02/24 10:40 04/04/24 09:54 Advanced Probiotic 625 Mg Capsule PO 05/02/24 10:39 1,250 mg DAILY SMILEY Administration Levalbuterol HCl 0.63 mg 03/30/24 19:30 03/30/24 20:10 Levalbuterol Hcl 0.63 Mg/3 Ml Neb NEB 04/29/24 19:29 0.63 mg Q4H PRN Administration Shortness Of Breath Or Wheezing Protocol Levothyroxine Sodium 50 mcg 03/31/24 06:30 04/04/24 06:31 Levothyroxine Sodium 50 Mcg Tablet PO 04/30/24 06:29 Not Given DAILYBB SMILEY Metoprolol Succinate 50 mg 03/31/24 09:00 04/04/24 09:57 Metoprolol Succ 50mg Ext Rel Tab PO 04/30/24 08:59 50 mg DAILY SMILEY Administration Pantoprazole Sodium 40 mg 03/31/24 09:00 04/02/24 08:15 Pantoprazole 40 Mg Tab PO 04/30/24 08:59 40 mg DAILY SMILEY Administration Paroxetine HCl 20 mg 03/31/24 09:00 04/04/24 09:55 Paroxetine Hcl 20 Mg Tab PO 04/30/24 08:59 20 mg DAILY SMILEY Administration Trolamine Salicylate 1 appln 03/30/24 21:00 04/04/24 06:30 Trolamine Salicylate 10% Crm 255 Appln/85 Gm Tube EXT 04/29/24 20:59 1 appln Q8H SMILEY Administration Umeclidinium/Vilanterol 1 puffs 03/31/24 09:00 04/04/24 09:37 Umeclidinium/Vilanterol 62.5/25mcg 7 Puffs/Inhaler INH 04/30/24 08:59 1 puffs DAILY SMILEY Administration Past Medical History Medical History Hypercholesterolemia Osteoporosis Secondary hyperparathyroidism GERD (gastroesophageal reflux disease) Heart block Vitamin D deficiency Exercise / Class Metabolic Activity II 4-5 Yardwork/Stairs/Walk up hill Past Family History Family History Father Hypertension Heart disease Mother Hypertension Asthma Other Cancer Diabetes Kidney disease Lung disease No family history of adverse response to anesthesia No family history of bleeding disorder Past Surgical History Surgical History Hx of blepharoplasty Hx of repair of rotator cuff Hx of tonsillectomy History of breast lump removal Past Anesthesia History No Hx of Anesthesia Complications and No Family Hx of Anesthesia Complications History of PONV No Hx of PONV and No Hx of Motion Sickness Social History Smoking Status: Former smoker Do You Dip or Chew Tobacco: No Hx Alcohol Use: Yes Alcohol type: wine alcohol intake frequency: holidays/special occasions only Hx Substance Use: No substance use type: does not use Physical Exam Vital Signs Last Vital Signs Temp 37.1 C 04/04/24 07:11 Pulse 83 04/04/24 07:11 Resp 18 04/04/24 07:52 BP 144/64 H 04/04/24 07:11 Pulse Ox 93 04/04/24 07:52 O2 Del Method Nasal Cannula 04/04/24 07:58 O2 Flow Rate 2 04/04/24 07:58 ENMT Mouth: no dentition abnormality Thyromental Distance: > or= 3.5 Finger Breadths Mallampati Class: II Neck normal visual inspection Respiratory normal respiratory effort Auscultation: lungs clear to auscultation bilaterally Cardiovascular Rate/Rhythm: regular rate and regular rhythm Psychiatric Orientation: alert Testing Laboratory Results 04/04/24 07:08 04/04/24 07:08 Urine Color Dark Yellow 03/30/24 15:34 Urine Appearance Turbid (Clear) A 03/30/24 15:34 Urine pH 5.5 (4.5-7.5) 03/30/24 15:34 Ur Specific [place] 1.036 (1.000-1.030) H 03/30/24 15:34 Urine Protein 3+ (Negative) H 03/30/24 15:34 Urine Glucose (UA) Negative (Negative) 03/30/24 15:34 Urine Ketones Trace (Negative) H 03/30/24 15:34 Urine Nitrite Negative (Negative) 03/30/24 15:34 Ur Leukocyte Esterase 1+ (Negative) H 03/30/24 15:34 Urine WBC (Auto) 11-20 /hpf (0-5) H 03/30/24 15:34 Urine RBC (Auto) 6-10 /hpf (0-2) H 03/30/24 15:34 U Hyaline Cast (Auto) 6-10 /lpf (0-2) H 03/30/24 15:34 U Epithel Cells (Auto) 6-10 /hpf (0-2) H 03/30/24 15:34 Urine Bacteria (Auto) 1+ (None Seen) H 03/30/24 15:34 04/02/24 05:22 Gram Stain - Final Sputum, Expectorated Sputum Culture - Final Light normal yani. 04/02/24 05:22 Gram Stain - Final Sputum, Expectorated 03/30/24 15:34 Urine Culture - Final Urine,Clean Catch More than three types of organisms present, all high counts. Repeat collection recommended. No further identifications or sensitivities to follow.
--- NOTE | 2024-04-04 12:21 | GI REPORT ---
[facility] Patient: BRANDON RANGEL : 1935 Sex at : Female Age: 88 Years Procedure: Upper GI endoscopy Date: 04/04/2024 Attending Physician: Don Loera MD Referring MD: Lacho Street DO; Heather Harper Indications: - Melena - Suspected upper gastrointestinal bleeding Medications: - Monitored Anesthesia Care Complications: - No immediate complications. Procedure: - Prior to the procedure, a History and Physical was performed, and patient medications and allergies were reviewed. The patient's tolerance of previous anesthesia was also reviewed. The risks and benefits of the procedure and the sedation options and risks were discussed with the patient. All questions were answered, and informed consent was obtained. [Anticoagulant Agents] [Days Prior to Procedure]. [ASA Grade]. After reviewing the risks and benefits, the patient was deemed in satisfactory condition to undergo the procedure. - The egd scope was introduced through the mouth and advanced to the second part of the duodenum. - The upper GI endoscopy was accomplished without difficulty. - The patient tolerated the procedure well. Findings: - The examined esophagus was normal. - The entire examined stomach was normal. - The examined duodenum was normal. Impression: - Normal esophagus. - Normal stomach. - Normal examined duodenum. - No specimens collected. Recommendation: - Resume previous diet. - Patient has a contact number available for emergencies. The signs and symptoms of potential delayed complications were discussed with the patient. Return to normal activities tomorrow. Written discharge instructions were provided to the patient. - For future colonoscopy the patient will require an extended preparation. If there are any questions, please contact the supervisor extrusion. Procedure Code(s): - 87002, Esophagogastroduodenoscopy, flexible, transoral; diagnostic, including collection of specimen(s) by brushing or washing, when performed (separate procedure) CPT(R) - 2023 copyright [employer]. All Rights Reserved. The CPT codes, CCI edits and ICD codes generated are intended as suggestions and were generated based on input data. These codes are preliminary and upon channel specialist review may be revised to meet current compliance and payer requirements. The provider is responsible for the final determination of appropriate codes, and modifiers. Don Loera MD This document has been electronically signed. Note Initiated:04/04/2024 Note Completed:04/04/2024 12:20 PM [id number]
--- NOTE | 2024-04-04 12:54 | Anesthesiology Progress Note ---
Date of Service April 04, 2024 Anesthesia Post Procedure Vital Signs Vital Signs: Temp Pulse Resp BP Pulse Ox O2 Del Method O2 Flow Rate 04/04/24 12:51 62 18 140/64 93 Nasal Cannula 2 04/04/24 12:35 63 16 130/50 L 94 Nasal Cannula 2 04/04/24 12:20 64 14 115/49 L 94 Nasal Cannula 5 04/04/24 10:45 36.4 C L 64 16 149/57 H 94 Nasal Cannula 2 04/04/24 07:58 Nasal Cannula 2 04/04/24 07:52 18 93 Nasal Cannula 2 04/04/24 07:11 37.1 C 83 16 144/64 H 93 Nasal Cannula 2 04/03/24 22:28 67 18 97 Nasal Cannula 3 04/03/24 20:25 Nasal Cannula 3 04/03/24 19:34 37.1 C 72 16 151/74 H 94 Nasal Cannula 3 04/03/24 14:32 37.0 C 70 16 144/68 H 92 Nasal Cannula 3 Pain Intensity Left Shoulder: Pain Intensity: 4 Transfer of Care Handoff Completed per policy Notes Mental Status: alert / awake / arousable Patient Amnestic to Procedure: Yes Nausea / Vomiting: adequately controlled Pain: adequately controlled Airway Patency, RR, SpO2: stable & adequate BP & HR: stable & adequate Hydration State: stable & adequate Anesthetic Complications: no major complications apparent
[2024-04-04] MEDS: PROPOFOL IV EMULSION 10 MG/ML 20 ML VIAL IV ONE (13:49)
[2024-04-04] MEDS: LIDOCAINE 2% 2 ML VIAL/AMP(20MG/ML) INFIL ONE (13:49)
[2024-04-05] MEDS: diphenhydrAMINE 2%/ZINC 0.1% CREAM 28.4GM TUBE EXT PRN (06:01)
[2024-04-05 06:35] LABS: Hematocrit (blood only) 28.6 % (37.0-47.0); Hemoglobin 9.4 g/dl (12.0-16.0); Mean Corpuscular Hemoglobin 28.7 pg (25.0-34.0); Mean Corpuscular Hgb Conc 32.9 g/dL (32.0-36.0); Mean Corpuscular Volume 87.2 fL (80.0-100.0); Mean Platelet Volume 10.3 fL (9.4-12.4); Nucleated RBC # (auto) 0.02 K/uL (0.00-0.12); Nucleated RBC % (auto) 0.2 %; Platelet Count 299 K/uL (130-400); RDW Coefficient of Variation 13.6 % (11.5-14.5); RDW Standard Deviation 43.5 fL (36.4-46.3); Red Blood Count 3.28 M/uL (4.20-5.40); White Blood Count 9.19 K/ul (4.8-10.8)
[2024-04-05 06:49] LABS: BUN Creatinine Ratio 16.9 (10-20); Calcium 8.8 mg/dl (8.6-10.3); Creatinine Clr Calc Pharmacy 39.7 ml/min; Magnesium 1.9 mg/dl (1.7-2.4); Potassium 3.9 mmol/L (3.5-5.1)
[2024-04-05] MEDS ORDERED: LOPERAMIDE HCL 2 MG CAP PO PRN (08:15)
[2024-04-05] MEDS: LOPERAMIDE HCL 2 MG CAP PO STA (09:06)
--- NOTE | 2024-04-05 09:11 | Gastroenterology Progress Note ---
Date of Service April 05, 2024 Assessment & Plan (1) Anemia: Plan Patient agreeable to having a colonoscopy to further evaluate her anemia and ongoing dark, loose stools. will plan to do an extended prep this weekend with procedure for next week. - will start clear liquids tomorrow and she can start a golytely half prep tomorrow, then a full prep on monday. - will plan for colonoscopy on Monday. Admission and Anticipated Discharge Date Admission Date: March 30, 2024 Supervising Physician Co-Signing Physician Notes I saw and examined this patient with our nurse practitioner and agree with her assessment and plan. Hemoglobin stable still with black stool. Patient has agreed to proceed with colonoscopy will prep over weekend. Subjective Patient is having ongoing dark stools that are loose. she tells me she was unable to make it to the toilet today and she is upset over this. she is also upset over not being able to get a shower. hgb stable at 9.4 (was 9.1). she tells me she thought about a colonoscopy and is agreeable to prepping out this weekend and having procedure next week. Review of Systems Review of Systems: All systems reviewed & are unremarkable except as noted in HPI & below Physical Exam Constitutional: WD/WN, vitals as above Respiratory: normal respiratory effort, lungs clear to auscultation Cardiovascular: Rate/Rhythm: regular rate and regular rhythm Gastrointestinal (Abdomen): normal bowel sounds, soft, nontender, no hepatosplenomegaly Psychiatric: Orientation: alert and oriented x 3 Results & Data Results & Data Vital Signs (Past 12 Hours) Vital Signs Temp Pulse Pulse Resp BP Pulse Ox O2 Del Method 04/05/24 07:40 97.7 F 76 14 164/74 H 94 Nasal Cannula 04/05/24 03:00 98.2 F 72 21 163/82 H 93 Nasal Cannula 04/05/24 00:13 98.1 F 75 20 168/65 H 92 Nasal Cannula 04/04/24 23:20 Nasal Cannula O2 Flow Rate 04/05/24 07:40 04/05/24 03:00 04/05/24 00:13 04/04/24 23:20 2 Laboratory Results Laboratory Results - last 48 hr 04/04/24 04/05/24 07:08 06:08 WBC 9.97 9.19 RBC 3.15 L 3.28 L Hgb 9.1 L 9.4 L Hct 27.5 L 28.6 L MCV 87.3 87.2 MCH 28.9 28.7 MCHC 33.1 32.9 RDW Std Deviation 42.9 43.5 RDW Coeff of Lakshmi 13.5 13.6 Plt Count 272 299 MPV 10.1 10.3 Absolute Nucleated RBC 0.02 Nucleated RBC % (auto) 0.2 Sodium 137 139 Potassium 3.8 3.9 Chloride 104 104 Carbon Dioxide 26 28 Anion Gap 7 7 BUN 14 15 Creatinine 0.87 0.89 Est Cr Clr Drug Dosing 40.6 39.7 eGFR 64.84 63.10 BUN/Creatinine Ratio 16.1 16.9 Glucose 118 H 102 H Calcium 8.5 L 8.8 Magnesium 2.0 1.9 Coding Level of Care Code 91419 SUB INP/OBS CARE 2/35MIN Diagnoses Anemia D64.9 Anemia type: unspecified type (1) Anemia Anemia type: unspecified type Qualified Code(s): D64.9 - Anemia, unspecified
[2024-04-05] MEDS ORDERED: LAVAGE SOLUTION 4000ML PO SCH (09:30)
--- NOTE | 2024-04-05 13:36 | Hospitalist Progress Note ---
<Statement entered by Lacho Street, - 04/05/24 14:15> I have seen and examined the patient and have discussed the case with the provider above. I have reviewed the advanced practitioner's documentation, and I agree with, and take responsibility for that plan of care. Patient up and ambulatory in the room. Reports GI discussed doing colonoscopy. No shortness of breath with activity in the room Lung sounds significantly improved Patient will complete course of antibiotics tomorrow Plan of care as outlined below with extended Prep for colonoscopy on Monday Date of Service April 05, 2024 Assessment & Plan (1) Multifocal pneumonia: (2) Bronchiectasis with (acute) exacerbation: (3) Acute anemia: (4) Abnormal urinalysis: Plan Luh Ro is an 88-year-old female with past medical history significant for HTN, HLD, CAD, asthma, bronchiectasis, chronic hypoxic respiratory failure [on 2L via NC at baseline], SSS s/p pacemaker placement, CKD stage III, depression/anxiety, hypothyroidism and others listed below who was admitted on 03/30/2024 for evaluation of generalized weakness and SOB. She is being managed for the following: Multifocal Pneumonia, Bronchiectasis Flare Chronic Hypoxic Respiratory Failure on Supplemental O2: CXR on admission concerning for multifocal PNA. Respiratory Biofire panel was negative. Pulmonology was consulted given that the patient follows with [facility] as an outpatient. She wears 2L via NC at baseline however she did previously require 3L earlier this admission. Now she is back at her baseline 2L . She was on IV Zithromax + Rocephin; downgraded to po cefuroxime on 04/03 by pulmonology. Pulmonology signed off on patient. Currently on day #7 of ABX in total (including IV + po). Plan to treat for a total of 10 days - last day of treatment being 04/08. 1 sputum culture finalized and was unremarkable. Other sputum culture still pending. She has not grown resistant organisms in the past. Chest CT performed on 04/01 consistent with multiple consolidations compatible with PNA, trace b/l pleural effusions with underlying atelectasis. Upper expiratory wheezing improved today. Continue pulmonary toilet including incentive spirometry, flutter valve, Mucinex & PRN nebs. MRSA nasal swab negative. Continue home inhaler. Follow-up CT scan in 8 to 12 weeks to document resolution per pulmonology's recommendation. Acute Anemia, C/F Possible UGIB: Patient reporting black/tarry, looser stool x 1 week ISO NSAID use for left shoulder pain which she landed on during the fall as mentioned below. GI consulted. Holding SQ Lovenox for now. Hgb dropped from 13.3 back in October 2023 --> 11 on admission --> 8.9 on 04/01 --> 9.1 on 04/04 --> 9.4 today. Iron panel reviewed - iron low but ferritin WNL. Per GI --> "Need to consider NSAID-induced peptic ulcer disease as well as NSAID gastropathy as the cause of bleeding." FOBT negative. Stool cultures/C. diff testing negative. She is on Plavix due to history of coronary stent placement. No indication to transfuse at this time. EGD done yesterday which was completely unremarkable. She was on IV PPI however this was stopped following negative EGD yesterday. Resumed her home po PPI. Question if anemia could be possibly due to acute illness; GI planning to do a colonoscopy on Monday, 04/08. Plan to do an extended prep this weekend - will start clears tomorrow and GoLytely half prep tomorrow. Full prep on Monday. Continue to monitor Hgb closely. Abnormal UA, C/F Possible UTI: UA on admission with 1+ bacteria. Seemingly poor sample, patient without urinary symptoms but notes "darker" urine - potentially related to poor intake in last few days prior to admission. Urine culture with more than 3 types of organism present, all high counts (repeat collection was recommended); however, patient was covered empirically with the IV Rocephin as per above. Given her lack of urinary complaints and overall clinical improvement, no need to repeat urine culture at this time. Patient covered for possible UTI with ABX regimen noted above. 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 Patient does not ambulate with assistive devices at baseline. She was in bed and attempted to get up a few days prior to admission but unfortunately rolled out of bed. She did strike her head and sustained a bruise to her left eye but never lost consciousness. She mentions that she typically has trouble with her left shoulder which was replaced in 11/[address] Eisenhuth. Initial evaluation including head CT, face CT and cervical spine CT in the ED were all unremarkable. Patient has active home therapy twice a week. PT/OT while inpatient. Plan for patient to return to [facility] when medically stable. Hyponatremia: Suspect 2/2 poor oral intake. Received 1L NSS in the ED. Sodium WNL today. Dysphonia, GERD: Patient saw [facility] in 01/2024 - Exam including videostroboscopy was normal aside from thick secretions and TVF atrophy. No evidence of thrush, mass, or lesion per ENT. Continue home po PPI. Can continue home H2 latha. No formal speech therapy assessment warranted at this time. CAD S/P Stenting, HLD & HTN: 07/2023 Echocardiogram: EF: 65-70%. History of moderate mid LAD obstruction via coronary CT in 2007, history of abnormal nuclear stress testing 04/2021 and patient denied heart catheterization. She is being managed medically. Continue Plavix, atorvastatin, metoprolol succinate and amlodipine. BP stable. 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 Alegria. Left shoulder XR reveals stable left shoulder arthroplasty, no acute bony abnormalities. Myoflex scheduled. Continue PT/OT. Other Chronic Medical Conditions: * Depression/Anxiety - Continue BuSpar, paroxetine. SSS S/P Pacemaker Placement - Pacemaker interrogation without arrhythmia. * Hypothyroidism - Continue levothyroxine. CKD Stage III - Cr remains stable, baseline Cr ~ 1.0 per chart review. Continue to monitor renal function, avoid nephrotoxic agents when able. DVT Prophylaxis: SCDs/TEDs for now, SQ Lovenox on hold 2/2 melena as per above. Code Status: FULL CODE PCP: Heather Harpre MD Disposition: Continue current treatments. Pending colonoscopy evaluation on Monday, 04/08. Patient seen in collaboration with Dr. Street. Please see addendum. I spent a total of 40 minutes coordinating, documenting, and providing care for this patient excluding time spent in the performance of separately billed services. This included personally reviewing all current laboratories and imaging studies, medical reconciliation, outpatient chart review and discussion with specialists. This chart was completed in part utilizing Speech Voice Recognition Software. Grammatical errors, random word insertions, pronoun errors, and incomplete sentences are an occasional consequence of this system due to software limitations, ambient noise, and hardware issues. Any formal questions or concerns about the content, text, or information contained within the body of this dictation should be directly addressed to the provider for clarification. Admission and Anticipated Discharge Date Admission Date: March 30, 2024 Subjective Patient seen and examined at bedside this morning. She endorses diarrhea since last night. Notes she was incontinent of a bowel movement this morning. She mentions that her stool is not quite as dark as it has been. Her breathing is improved. She is on her baseline 2L. She is requesting to get a shower. Review of Systems Review of Systems: At least ten systems reviewed and negative, except as noted in the subjective section. Physical Exam Physical Exam: General: WD/WN, NAD, laying down in bed, very pleasant, conversing appropriately. A+Ox3, euthymic affect. HEENT: Normocephalic, atraumatic. Conjunctivae normal. External ear and nose normal, oropharynx normal. Respiratory: Normal respiratory effort, wheezing improved/breath sounds decreased throughout. Cardiovascular: Regular rate, rhythm, normal peripheral pulses, no BLE edema. Vessels: No JVD. Abdomen/GI: Normal bowel sounds, soft, nondistended, nontender to palpation in all quadrants. Extremities/Musculoskeletal: No cyanosis or clubbing, extremities motor strength intact/moves all extremities. Neurologic: No overt focal deficits, CN's II-XI not formally tested but appear grossly intact bilaterally. Results & Data Results & Data Vital Signs (Past 12 Hours) Vital Signs Temp Pulse Pulse Resp BP Pulse Ox O2 Del Method 04/05/24 11:55 36.8 C 70 14 114/60 94 Nasal Cannula 04/05/24 09:30 Nasal Cannula 04/05/24 07:40 36.5 C 76 14 164/74 H 94 Nasal Cannula 04/05/24 03:00 36.8 C 72 21 163/82 H 93 Nasal Cannula O2 Flow Rate 04/05/24 11:55 2 04/05/24 09:30 2 04/05/24 07:40 2 04/05/24 03:00 Laboratory Results Short CBC 04/05/24 Range/Units 06:08 WBC 9.19 (4.8-10.8) K/ul Hgb 9.4 L (12.0-16.0) g/dl Hct 28.6 L (37.0-47.0) % Plt Count 299 (130-400) K/uL BMP 04/05/24 06:08 Sodium 139 Potassium 3.9 Chloride 104 Carbon Dioxide 28 BUN 15 Creatinine 0.89 Glucose 102 H Calcium 8.8
[2024-04-06 06:42] LABS: Hematocrit (blood only) 28.4 % (37.0-47.0); Hemoglobin 9.3 g/dl (12.0-16.0); Mean Corpuscular Hemoglobin 29.1 pg (25.0-34.0); Mean Corpuscular Hgb Conc 32.7 g/dL (32.0-36.0); Mean Corpuscular Volume 88.8 fL (80.0-100.0); Mean Platelet Volume 9.9 fL (9.4-12.4); Nucleated RBC # (auto) 0.02 K/uL (0.00-0.12); Nucleated RBC % (auto) 0.3 %; Platelet Count 309 K/uL (130-400); RDW Coefficient of Variation 13.8 % (11.5-14.5); RDW Standard Deviation 44.9 fL (36.4-46.3); White Blood Count 7.84 K/ul (4.8-10.8)
[2024-04-06 07:10] LABS: BUN Creatinine Ratio 12.5 (10-20); Calcium 8.6 mg/dl (8.6-10.3); Creatinine Clr Calc Pharmacy 40.1 ml/min; Magnesium 1.8 mg/dl (1.7-2.4)
--- NOTE | 2024-04-06 08:06 | Hospitalist Progress Note ---
<Statement entered by Lacho Street, - 04/06/24 15:11> I have seen and examined the patient and have discussed the case with the provider above. I have reviewed the advanced practitioner's documentation, and I agree with, and take responsibility for that plan of care. Patient was happy she can get a shower yesterday. Denies any shortness of breath. Patient understands plan is to prep for colonoscopy over the weekend Additional plan of care as outlined below Date of Service April 06, 2024 Assessment & Plan (1) Multifocal pneumonia: (2) Bronchiectasis with (acute) exacerbation: (3) Acute anemia: (4) Abnormal urinalysis: Plan This is an 88-year-old female with PMH of HTN, HLD, CAD, asthma, bronchiectasis, chronic hypoxic respiratory failure (on 2L via NC at baseline), SSS s/p pacemaker placement, CKD stage III, depression/anxiety, hypothyroidism and others listed below who was admitted on 03/30/2024 for evaluation of generalized weakness and SOB and was found to have multifocal PNA, bronchiectasis flare. Multifocal Pneumonia, Bronchiectasis Flare Chronic Hypoxic Respiratory Failure on Supplemental O2 Chest CT performed on 04/01 consistent with multiple consolidations compatible with PNA, trace b/l pleural effusions with underlying atelectasis Respiratory Biofire panel was negative Initially requiring 3L NC but has returned to 2L NC O2 Abx de-escalated to cefuroxime on 04/03, pulm signed off. EOT abx 04/08 Sputum culture- unremarkable Improving with pulmonary toilet including incentive spirometry, flutter valve, Mucinex Duonebs now BID MRSA nasal swab negative. Continue home inhaler Follow-up CT scan in 8 to 12 weeks to document resolution per pulmonology's recommendation Acute Anemia, C/F Possible UGIB Patient reporting black/tarry, looser stool x 1 week ISO NSAID use for left shoulder pain Hgb dropped from 13.3 (Oct 2023) to 11 on admission --> 8.9 -> hgb stable today at 9.3 Iron panel reviewed- iron low but ferritin WNL SQ lovenox held GI consulted - EGD 04/04 unremarkable, planning to do colonoscopy on Saturday 04/08 To undergo extended prep this weekend, started GoLytely half prep tomorrow, full prep on Monday Holding plavix Abnormal UA Urine culture with more than 3 types of organism present, all high counts (repeat collection was recommended) Given her lack of urinary complaints and overall clinical improvement, no need to repeat urine culture at this time Mechanical Fall PATIENT INTAKE COORDINATOR Generalized Weakness Likely 2/2 illness - improving Initial evaluation including head CT, face CT and cervical spine CT in the ED were all unremarkable Patient has active home therapy twice a week. PT/OT while inpatient- Plan for patient to return to [facility] when medically stable. Hyponatremia -> resolved Suspect 2/2 poor oral intake Received 1L NSS in the ED Sodium WNL Dysphonia, GERD Patient saw [facility] [place] [facility] in 01/2024 - Exam including videostroboscopy was normal aside from thick secretions and TVF atrophy. No evidence of thrush, mass, or lesion per ENT Continue home PO PPI, H2 latha No formal speech therapy assessment warranted at this time CAD, HLD & HTN 07/2023 Echocardiogram: EF: 65-70% History of moderate mid LAD obstruction via coronary CT in 2007, history of a bnormal nuclear stress testing 04/2021 and patient adverse to heart catheterization Managed medically on Plavix, atorvastatin, metoprolol succinate and amlodipine. 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 Alegria. Left shoulder XR reveals stable left shoulder arthroplasty, no acute bony abnormalities. Myoflex scheduled. Continue PT/OT Other Chronic Medical Conditions: * Depression/Anxiety - Continue BuSpar, paroxetine * SSS S/P Pacemaker Placement - Pacemaker interrogation without arrhythmia * Hypothyroidism - Continue levothyroxine * CKD Stage III - Cr remains stable, baseline Cr ~ 1.0 per chart review. Continue to monitor renal function, avoid nephrotoxic agents when able DVT Prophylaxis: SCDs/TEDs for now, SQ Lovenox on hold 2/2 melena as per above. Code Status: FULL CODE PCP: Leroy Disposition: Admitted on med/surg. Pending colonoscopy evaluation on Monday, 04/08. Patient seen in collaboration with Dr. Street. Please see addendum. I spent a total of 45 minutes coordinating, documenting, and providing care for this patient excluding time spent in the performance of separately billed services. This included personally reviewing all current laboratories and imaging studies, medical reconciliation, outpatient chart review and discussion with specialists. Admission and Anticipated Discharge Date Admission Date: March 30, 2024 Subjective Patient seen and examined in 304. No acute changes overnight. Transition to clear liquids today, will undergo half GoLytely prep today. No lightheadedness, chest pain, shortness of breath, nausea, vomiting, abdominal pain, dysuria. Increasing coughing overnight, neb helped. Review of Systems Review of Systems: At least ten systems reviewed and negative except as noted in the HPI. Physical Exam Physical Exam: Gen: WD/WN, NAD, resting comfortably in bed, A&Ox3, BUE tremors HEENT: Normocephalic, atraumatic, conjunctivae moist, sclerae anicteric, mucous membranes moist Lung: Diminished breath sounds, scattered expiratory wheezes Heart: Regular rate, regular rhythm Abdomen: Soft, NT, ND +BS x 4 Extremities: no BLE edema Skin: Warm, no rash Results & Data Results & Data Vital Signs (Past 12 Hours) Vital Signs Temp Pulse Resp BP Pulse Ox O2 Del Method O2 Flow Rate 04/06/24 07:17 36.6 C 66 16 147/67 H 92 Nasal Cannula 2 04/05/24 22:50 Nasal Cannula 2 04/05/24 20:43 64 20 96 Nasal Cannula 2 Laboratory Results Short CBC 04/06/24 Range/Units 05:57 WBC 7.84 (4.8-10.8) K/ul Hgb 9.3 L (12.0-16.0) g/dl Hct 28.4 L (37.0-47.0) % Plt Count 309 (130-400) K/uL BMP 04/06/24 05:57 Sodium 141 Potassium 4.0 Chloride 106 Carbon Dioxide 29 BUN 11 Creatinine 0.88 Glucose 102 H Calcium 8.6 Diagnostic Findings Chest X-Ray 03/30/24 14:01 Chest radiograph, one view History: Weakness Comparison: None Findings: Single AP view of the chest performed. No pneumothorax. Mild perihilar opacity may represent atelectasis. There is right hilar fullness. Right upper lobe scattered patchy nodular opacities are seen. Some smaller nodular opacities are seen in the right lower lung. The heart is enlarged. There is a leftWall dual-lead AICD. No visualized bony or soft tissue abnormality. Impression: Scattered nodular opacities in the right lung, which may be infectious. There is right hilar fullness, possibly due to lymphadenopathy, either reactive or malignant not excluded. Follow-up to resolution or chest CT is recommended. Electronically signed by Antwan Ro 03-30-2024 3:[address] 03/30/24 14:05 CT cervical spine without IV contrast History: Pain Comparison: None Technique: Using multidetector thin collimation helical acquisition technique, axial, coronal and sagittal CT images through the cervical spine were obtained without intravenous contrast. Dose reduction techniques were achieved by using automatic exposure control and/or adjustment of mA and/or kV according to patient size and/or use of iterative reconstruction technique. Findings: The cervical vertebrae are normally aligned. Normal cervical lordosis. No acute fracture or subluxation. No prevertebral edema. Moderate multilevel discogenic and facet degenerative change. Osteopenia. No abnormality of the paraspinous soft tissues. Impression: No acute fracture or traumatic subluxation. Electronically signed by Antwan Ro 03-30-2024 2:[address] 03/30/24 14:05 CT head without contrast History: Trauma Comparison: None Technique: Using multidetector thin collimation helical acquisition technique, axial, coronal and sagittal CT images from the skull base to the vertex were obtained without intravenous contrast. Dose reduction techniques were achieved by using automatic exposure control and/or adjustment of mA and/or kV according to patient size and/or use of iterative reconstruction technique. Findings: No intracranial hemorrhage, mass-effect, or midline shift. The ventricles are proportionate to the cerebral sulci. Encephalomalacia related to a moderate chronic right parietal lobe infarct otherwise the koch to white matter differentiation of the cerebral hemispheres is preserved. The basal cisterns are patent. There is moderate cerebral atrophy. Moderate, patchy low-attenuation changes in the white matter, most suggestive of sequelae of chronic small vessel ischemic disease. The visualized paranasal sinuses are clear. Mastoid air cells are clear. Impression: No acute intracranial pathology. Electronically signed by Antwan Ro 03-30-2024 2:[address] 03/30/24 14:17 CT maxillofacial without contrast History: Trauma Comparison: None Technique: Using thin collimation multidetector helical acquisition technique, axial and coronal thin section CT images were reconstructed through the facial bones. Images were reviewed in bone and soft tissue windows. One or more of the following dose-optimizing techniques was utilized for this exam: automated exposure control, adjustment of the mA and/or kV according to patient size, and/or use of iterative reconstruction technique. Findings: There is no significant soft tissue swelling of the face. There is no evident fracture of the facial bones. The cribriform plate appears intact. Alignment of the facial bones appears normal. There is no hematoma, soft tissue mass or gas visualized within the orbits. Mild mucosal thickening of the ethmoid air cells and frontal sinuses. Impression: Normal CT study of the facial bones. Electronically signed by Antwan Ro 03-30-2024 2:53 PM Shoulder X-Ray 03/30/24 14:53 Study: Left shoulder, 5 views History: Pain Comparison: None Findings: There is no acute fracture or dislocation. There is a total left shoulder arthroplasty. Alignment is anatomic. Joint spaces are well maintained. There is no joint effusion or significant soft tissue swelling. Bone mineralization is normal. Impression: No acute bony abnormality of the left shoulder. Left shoulder arthroplasty appears intact. Electronically signed by Antwan Ro 03-30-2024 3:[address] 04/01/24 08:28 CT chest diagnostic wo con CLINICAL HISTORY: bronchiectasis, sob, wheezing TECHNIQUE: Multidetector row helical CT of the chest was performed. Coronal and sagittal reformations were obtained. Automated dose lowering techniques and/or adjustment according to patient size were utilized for this exam. CT DOSE: 445.11 mGy.cm Comparison: Comparison is made to CT chest 06/16/2022 FINDINGS: Lungs and pleura: Consolidative changes are seen throughout, most prominently in the right upper lobe. There are trace bilateral pleural effusions with associated atelectasis. Heart and pericardium: Cardiomegaly is seen with biatrial enlargement. Vessels: Moderate atherosclerotic changes in the aorta and coronary arteries. Mediastinum and yoko: Subcentimeter lymph nodes are seen. Chest wall and lower neck: Unremarkable. Abdomen: Moderate hiatal hernia is seen. Bones: Degenerative changes in the thoracic spine. IMPRESSION: Multifocal consolidations compatible with pneumonia. Trace bilateral pleural effusions with underlying atelectasis. Follow-up to resolution is recommended. ACT 112: Negative or not required by law. Electronically signed by: Chi Golden M.D. 04/01/2024 9:34 AM
[2024-04-06] MEDS ORDERED: LAVAGE SOLUTION 4000ML PO SCH (09:15)
[2024-04-06] MEDS: LAVAGE SOLUTION 4000ML PO SCH (09:19)
[2024-04-06] MEDS: ALBUT/IPRATROP 3MG/0.5MG NEB 3 ML VIAL NEB SCH (13:41)
[2024-04-06] MEDS: cefUROXime axetil 250 MG TABLET PO SCH (20:23)
[2024-04-07 07:15] LABS: Hemoglobin 9.4 g/dl (12.0-16.0); Mean Corpuscular Hemoglobin 28.3 pg (25.0-34.0); Mean Corpuscular Hgb Conc 32.4 g/dL (32.0-36.0); Mean Corpuscular Volume 87.3 fL (80.0-100.0); Mean Platelet Volume 9.6 fL (9.4-12.4); Platelet Count 317 K/uL (130-400); RDW Coefficient of Variation 13.7 % (11.5-14.5); RDW Standard Deviation 43.7 fL (36.4-46.3); Red Blood Count 3.32 M/uL (4.20-5.40); White Blood Count 7.62 K/ul (4.8-10.8)
[2024-04-07 07:27] LABS: BUN Creatinine Ratio 9.3 (10-20); Calcium 8.7 mg/dl (8.6-10.3); Creatinine Clr Calc Pharmacy 41.1 ml/min; Magnesium 1.8 mg/dl (1.7-2.4); Potassium 4.1 mmol/L (3.5-5.1)
--- NOTE | 2024-04-07 08:57 | Gastroenterology Progress Note ---
Date of Service April 07, 2024 Assessment & Plan (1) GI bleed: Plan: Endoscopy unrevealing and nondiagnostic for cause of GI bleeding. Will proceed with colonoscopy in AM. Admission and Anticipated Discharge Date Admission Date: March 30, 2024 Subjective Breathing better no chest pain no abdominal pain Physical Exam Physical Exam: No acute distress Respiratory rate regular Cardiac rhythm regular Abdomen soft nontender Results & Data Results & Data Vital Signs (Past 12 Hours) Vital Signs Temp Pulse Resp BP Pulse Ox O2 Del Method O2 Flow Rate 04/07/24 08:02 Nasal Cannula 2 04/07/24 07:17 36.9 C 67 16 125/67 98 Nebulizer 04/07/24 07:09 76 12 96 Nasal Cannula 2 04/06/24 23:21 Nasal Cannula 2 Laboratory Results Laboratory Results - last 48 hr 04/06/24 04/07/24 05:57 06:37 WBC 7.84 7.62 RBC 3.20 L 3.32 L Hgb 9.3 L 9.4 L Hct 28.4 L 29.0 L MCV 88.8 87.3 MCH 29.1 28.3 MCHC 32.7 32.4 RDW Std Deviation 44.9 43.7 RDW Coeff of Lakshmi 13.8 13.7 Plt Count 309 317 MPV 9.9 9.6 Absolute Nucleated RBC 0.02 Nucleated RBC % (auto) 0.3 Sodium 141 140 Potassium 4.0 4.1 Chloride 106 105 Carbon Dioxide 29 30 Anion Gap 6 5 BUN 11 8 Creatinine 0.88 0.86 Est Cr Clr Drug Dosing 40.1 41.1 eGFR 63.96 65.75 BUN/Creatinine Ratio 12.5 9.3 L Glucose 102 H 106 H Calcium 8.6 8.7 Magnesium 1.8 1.8 PG Care Time/CCT Total # of Minutes Spent Total Time Spent with Patient: Total time spent is greater than 50% in coordination of care (as documented) at patient's floor/unit and/or counseling patient: Coding Level of Care Code 61774 SUB INP/OBS CARE 3/50MIN Diagnoses GI bleed K92.2
[2024-04-07] MEDS: LAVAGE SOLUTION 4000ML PO SCH (09:09)
--- NOTE | 2024-04-07 11:14 | Hospitalist Progress Note ---
Date of Service April 07, 2024 Assessment & Plan (1) Multifocal pneumonia: (2) Bronchiectasis with (acute) exacerbation: (3) Acute anemia: (4) Abnormal urinalysis: Plan This is an 88-year-old female with PMH of HTN, HLD, CAD, asthma, bronchiectasis, chronic hypoxic respiratory failure (on 2L via NC at baseline), SSS s/p pacemaker placement, CKD stage III, depression/anxiety, hypothyroidism and others listed below who was admitted on 03/30/2024 for evaluation of generalized weakness and SOB and was found to have multifocal PNA, bronchiectasis flare. Multifocal Pneumonia, Bronchiectasis Flare Chronic Hypoxic Respiratory Failure on Supplemental O2 Chest CT performed on 04/01 consistent with multiple consolidations compatible with PNA, trace b/l pleural effusions with underlying atelectasis Respiratory Biofire panel was negative Initially requiring 3L NC but has returned to baseline 2L NC O2 Abx de-escalated to cefuroxime on 04/03, pulm signed off. EOT abx 04/08 Sputum culture- unremarkable Improving with pulmonary toilet including incentive spirometry, flutter valve, Mucinex Duonebs now BID MRSA nasal swab negative. Continue home inhaler Follow-up CT scan in 8 to 12 weeks to document resolution per pulmonology's recommendation Acute Anemia, C/F Possible UGIB Patient reporting black/tarry, looser stool x 1 week ISO NSAID use for left shoulder pain Hgb dropped from 13.3 (Oct 2023) to 11 on admission --> 8.9 -> hgb stable today at 9.4 Iron panel reviewed- iron low but ferritin WNL SQ lovenox held GI consulted - EGD 04/04 unremarkable, planning to do colonoscopy on Saturday 04/08 To undergo extended prep this weekend,full GoLytely prep today Holding plavix Abnormal UA Urine culture with more than 3 types of organism present, all high counts (repeat collection was recommended) Given her lack of urinary complaints and overall clinical improvement, no need to repeat urine culture at this time 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 PT/OT while inpatient- Plan for patient to return to [facility] when medically stable Hyponatremia -> resolved Suspect 2/2 poor oral intake Received 1L NSS in the ED Sodium WNL Dysphonia, GERD Patient saw [facility] in 01/2024 - Exam including videostroboscopy was normal aside from thick secretions and TVF atrophy. No evidence of thrush, mass, or lesion per ENT Continue home PO PPI, H2 latha No formal speech therapy assessment warranted at this time CAD, HLD & HTN 07/2023 Echocardiogram: EF: 65-70% History of moderate mid LAD obstruction via coronary CT in 2007, history of abnormal nuclear stress testing 04/2021 and patient adverse to heart catheterization Managed medically on Plavix, atorvastatin, metoprolol succinate and amlodipine. 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 Alegria. Left shoulder XR reveals stable left shoulder arthroplasty, no acute bony abnormalities. Trial of Myoflex with resulting rash - non-pruritic, pain or resp effects- d/c cream. Monitor Continue PT/OT Other Chronic Medical Conditions: * Depression/Anxiety - Continue BuSpar, paroxetine * SSS S/P Pacemaker Placement - Pacemaker interrogation without arrhythmia * Hypothyroidism - Continue levothyroxine * CKD Stage III - Cr remains stable, baseline Cr ~ 1.0 per chart review. Continue to monitor renal function, avoid nephrotoxic agents when able DVT Prophylaxis: SCDs/TEDs for now, SQ Lovenox on hold 2/2 melena as per above. Code Status: FULL CODE PCP: Leroy Disposition: Admitted on med/surg. Pending colonoscopy evaluation on Monday, 03/27 3. I spent a total of 40 minutes coordinating, documenting, and providing care for this patient excluding time spent in the performance of separately billed services. This included personally reviewing all current laboratories and imaging studies, medical reconciliation, outpatient chart review and discussion with specialists. Admission and Anticipated Discharge Date Admission Date: March 30, 2024 Subjective Patient seen and examined in 304. No acute changes overnight. Tolerating her GoLytely prep without issue. No N/V. No melena. No lightheadedness, chest pain, shortness of breath, abdominal pain, dysuria. Did 2 neb treatments yesterday with improvement to breathing. Feels she is back to baseline there. Awaiting colonoscopy tomorrow. Review of Systems Review of Systems: At least ten systems reviewed and negative except as noted in the HPI. Physical Exam Physical Exam: Gen: WD/WN, NAD, resting comfortably in bed, A&Ox3, BUE tremors HEENT: Normocephalic, atraumatic, conjunctivae moist, sclerae anicteric, mucous membranes moist Lung: Improved air movement, scattered expiratory wheezes Heart: Regular rate, regular rhythm Abdomen: Soft, NT, ND +BS x 4 Extremities: no BLE edema Skin: Warm, + faint maculopapular rash overlying L shoulder, non-pruritic or tender, no drainage Results & Data Results & Data Vital Signs (Past 12 Hours) Vital Signs Temp Pulse Resp BP Pulse Ox O2 Del Method O2 Flow Rate 04/07/24 08:02 Nasal Cannula 2 04/07/24 07:17 36.9 C 67 16 125/67 98 Nebulizer 04/07/24 07:09 76 12 96 Nasal Cannula 2 04/06/24 23:21 Nasal Cannula 2 Laboratory Results Short CBC 04/07/24 Range/Units 06:37 WBC 7.62 (4.8-10.8) K/ul Hgb 9.4 L (12.0-16.0) g/dl Hct 29.0 L (37.0-47.0) % Plt Count 317 (130-400) K/uL BMP 04/07/24 06:37 Sodium 140 Potassium 4.1 Chloride 105 Carbon Dioxide 30 BUN 8 Creatinine 0.86 Glucose 106 H Calcium 8.7 Diagnostic Findings Chest X-Ray 03/30/24 14:01 Chest radiograph, one view History: Weakness Comparison: None Findings: Single AP view of the chest performed. No pneumothorax. Mild perihilar opacity may represent atelectasis. There is right hilar fullness. Right upper lobe scattered patchy nodular opacities are seen. Some smaller nodular opacities are seen in the right lower lung. The heart is enlarged. There is a leftWall dual-lead AICD. No visualized bony or soft tissue abnormality. Impression: Scattered nodular opacities in the right lung, which may be infectious. There is right hilar fullness, possibly due to lymphadenopathy, either reactive or malignant not excluded. Follow-up to resolution or chest CT is recommended. Electronically signed by Antwan Ro 03-30-2024 3:[address] 03/30/24 14:05 CT cervical spine without IV contrast History: Pain Comparison: None Technique: Using multidetector thin collimation helical acquisition technique, axial, coronal and sagittal CT images through the cervical spine were obtained without intravenous contrast. Dose reduction techniques were achieved by using automatic exposure control and/or adjustment of mA and/or kV according to patient size and/or use of iterative reconstruction technique. Findings: The cervical vertebrae are normally aligned. Normal cervical lordosis. No acute fracture or subluxation. No prevertebral edema. Moderate multilevel discogenic and facet degenerative change. Osteopenia. No abnormality of the paraspinous soft tissues. Impression: No acute fracture or traumatic subluxation. Electronically signed by Antwan Ro 03-30-2024 2:[address] 03/30/24 14:05 CT head without contrast History: Trauma Comparison: None Technique: Using multidetector thin collimation helical acquisition technique, axial, coronal and sagittal CT images from the skull base to the vertex were obtained without intravenous contrast. Dose reduction techniques were achieved by using automatic exposure control and/or adjustment of mA and/or kV according to patient size and/or use of iterative reconstruction technique. Findings: No intracranial hemorrhage, mass-effect, or midline shift. The ventricles are proportionate to the cerebral sulci. Encephalomalacia related to a moderate chronic right parietal lobe infarct otherwise the koch to white matter differentiation of the cerebral hemispheres is preserved. The basal cisterns are patent. There is moderate cerebral atrophy. Moderate, patchy low-attenuation changes in the white matter, most suggestive of sequelae of chronic small vessel ischemic disease. The visualized paranasal sinuses are clear. Mastoid air cells are clear. Impression: No acute intracranial pathology. Electronically signed by Antwan Ro 03-30-2024 2:[address] 03/30/24 14:17 CT maxillofacial without contrast History: Trauma Comparison: None Technique: Using thin collimation multidetector helical acquisition technique, axial and coronal thin section CT images were reconstructed through the facial bones. Images were reviewed in bone and soft tissue windows. One or more of the following dose-optimizing techniques was utilized for this exam: automated exposure control, adjustment of the mA and/or kV according to patient size, and/or use of iterative reconstruction technique. Findings: There is no significant soft tissue swelling of the face. There is no evident fracture of the facial bones. The cribriform plate appears intact. Alignment of the facial bones appears normal. There is no hematoma, soft tissue mass or gas visualized within the orbits. Mild mucosal thickening of the ethmoid air cells and frontal sinuses. Impression: Normal CT study of the facial bones. Electronically signed by Antwan oR 03-30-2024 2:53 PM Shoulder X-Ray 03/30/24 14:53 Study: Left shoulder, 5 views History: Pain Comparison: None Findings: There is no acute fracture or dislocation. There is a total left shoulder arthroplasty. Alignment is anatomic. Joint spaces are well maintained. There is no joint effusion or significant soft tissue swelling. Bone mineralization is normal. Impression: No acute bony abnormality of the left shoulder. Left shoulder arthroplasty appears intact. Electronically signed by Antwan Ro 03-30-2024 3:[address] 04/01/24 08:28 CT chest diagnostic wo con CLINICAL HISTORY: bronchiectasis, sob, wheezing TECHNIQUE: Multidetector row helical CT of the chest was performed. Coronal and sagittal reformations were obtained. Automated dose lowering techniques and/or adjustment according to patient size were utilized for this exam. CT DOSE: 445.11 mGy.cm Comparison: Comparison is made to CT chest 06/16/2022 FINDINGS: Lungs and pleura: Consolidative changes are seen throughout, most prominently in the right upper lobe. There are trace bilateral pleural effusions with associated atelectasis. Heart and pericardium: Cardiomegaly is seen with biatrial enlargement. Vessels: Moderate atherosclerotic changes in the aorta and coronary arteries. Mediastinum and yoko: Subcentimeter lymph nodes are seen. Chest wall and lower neck: Unremarkable. Abdomen: Moderate hiatal hernia is seen. Bones: Degenerative changes in the thoracic spine. IMPRESSION: Multifocal consolidations compatible with pneumonia. Trace bilateral pleural effusions with underlying atelectasis. Follow-up to resolution is recommended. ACT 112: Negative or not required by law. Electronically signed by: Chi Golden M.D. 04/01/2024 9:34 AM
[2024-04-08 06:12] LABS: Hematocrit (blood only) 28.3 % (37.0-47.0); Hemoglobin 9.1 g/dl (12.0-16.0); Mean Corpuscular Hemoglobin 28.1 pg (25.0-34.0); Mean Corpuscular Hgb Conc 32.2 g/dL (32.0-36.0); Mean Corpuscular Volume 87.3 fL (80.0-100.0); Mean Platelet Volume 9.8 fL (9.4-12.4); Platelet Count 307 K/uL (130-400); RDW Coefficient of Variation 13.7 % (11.5-14.5); RDW Standard Deviation 43.7 fL (36.4-46.3); Red Blood Count 3.24 M/uL (4.20-5.40); White Blood Count 6.92 K/ul (4.8-10.8)
[2024-04-08 06:27] LABS: BUN Creatinine Ratio 7.3 (10-20); Calcium 8.5 mg/dl (8.6-10.3); Creatinine Clr Calc Pharmacy 43.1 ml/min; Potassium 3.6 mmol/L (3.5-5.1)
--- NOTE | 2024-04-08 09:40 | History & Physical Bridge Note ---
Date of Service April 08, 2024 History & Physical Bridge Note I have examined the patient, reviewed the History & Physical and in the interval since the performance of the History & Physical I have noted the following changes of clinical significance: no changes noted. she had been prepping over the weekend. she tells me that her stools are coming out clear. some shortness of breath, but this is at baseline. no chest pain. no nausea, vomiting, abdominal pain, brbpr, or further dark stools. - will plan on colonoscopy today to further evaluate anemia.
--- NOTE | 2024-04-08 10:44 | Hospitalist Progress Note ---
<Statement entered by Lacho Street, - 04/08/24 13:26> I have seen and examined the patient and have discussed the case with the provider above. I have reviewed the advanced practitioner's documentation, and I agree with, and take responsibility for that plan of care. Patient very eager to get this colonoscopy completed. Would like to get home. She reports only using oxygen at night. Has been on oxygen during the day here. Case management conversation, will need to determine if patient can return to personal care at the [facility]. Will need to do determine patient's current oxygen order, may need to step for updated oxygen order if requires during the day. Further plan of care as outlined below and discussed with WILLIAM Date of Service April 08, 2024 Assessment & Plan (1) Multifocal pneumonia: (2) Bronchiectasis with (acute) exacerbation: (3) Acute anemia: (4) Abnormal urinalysis: Plan This is an 88-year-old female with PMH of HTN, HLD, CAD, asthma, bronchiectasis, chronic hypoxic respiratory failure (on 2L via NC at baseline), SSS s/p pacemaker placement, CKD stage III, depression/anxiety, hypothyroidism and others listed below who was admitted on 03/30/2024 for evaluation of generalized weakness and SOB and was found to have multifocal PNA, bronchiectasis flare. Multifocal Pneumonia, Bronchiectasis Flare Chronic Hypoxic Respiratory Failure on Supplemental O2 Chest CT performed on 04/01 consistent with multiple consolidations compatible with PNA, trace b/l pleural effusions with underlying atelectasis Respiratory Biofire panel was negative Initially requiring 3L NC but has returned to baseline 2L NC O2 Abx de-escalated to cefuroxime on 04/03, pulm signed off. EOT abx 04/08 Sputum culture- unremarkable Improving with pulmonary toilet including incentive spirometry, flutter valve, Mucinex Duonebs now BID MRSA nasal swab negative. Continue home inhaler Follow-up CT scan in 8 to 12 weeks to document resolution per pulmonology's recommendation Acute Anemia, C/F Possible UGIB Patient reporting black/tarry, looser stool x 1 week ISO NSAID use for left shoulder pain Hgb dropped from 13.3 (Oct 2023) to 11 on admission --> 8.9 -> hgb stable today at 9.4 Iron panel reviewed- iron low but ferritin WNL SQ lovenox held GI consulted - EGD 04/04 unremarkable, planning to do colonoscopy on Saturday 04/08 Holding plavix Abnormal UA Urine culture with more than 3 types of organism present, all high counts (repeat collection was recommended) Given her lack of urinary complaints and overall clinical improvement, no need to repeat urine culture at this time 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 PT/OT while inpatient- Plan for patient to return to [facility] when medically stable Hyponatremia -> resolved Suspect 2/2 poor oral intake Received 1L NSS in the ED Sodium WNL Dysphonia, GERD Patient saw [facility] in 01/2024 - Exam including videostroboscopy was normal aside from thick secretions and TVF atrophy. No evidence of thrush, mass, or lesion per ENT Continue home PO PPI, H2 latha No formal speech therapy assessment warranted at this time CAD, HLD & HTN 07/2023 Echocardiogram: EF: 65-70% History of moderate mid LAD obstruction via coronary CT in 2007, history of abnormal nuclear stress testing 04/2021 and patient adverse to heart catheterization Managed medically on Plavix, atorvastatin, metoprolol succinate and amlodipine. 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 Alegria. Left shoulder XR reveals stable left shoulder arthroplasty, no acute bony abnormalities. Trial of Myoflex with resulting rash - non-pruritic, pain or resp effects- d/c cream. Monitor Continue PT/OT Other Chronic Medical Conditions: * Depression/Anxiety - Continue BuSpar, paroxetine * SSS S/P Pacemaker Placement - Pacemaker interrogation without arrhythmia * Hypothyroidism - Continue levothyroxine * CKD Stage III - Cr remains stable, baseline Cr ~ 1.0 per chart review. Continue to monitor renal function, avoid nephrotoxic agents when able DVT Prophylaxis: SCDs/TEDs for now, SQ Lovenox on hold 2/2 melena as per above. Code Status: FULL CODE PCP: Leroy Disposition: Plan for colonoscopy this afternoon, dispo pending the results whether discharge home later this evening or tomorrow morning. I spent a total of 42 minutes coordinating, documenting, and providing care for this patient excluding time spent in the performance of separately billed services. This included personally reviewing all current laboratories and imaging studies, medical reconciliation, outpatient chart review and discussion with specialists. Admission and Anticipated Discharge Date Admission Date: March 30, 2024 Subjective Pt is planning for a colonoscopy today. She is hopeful to get discharged home. She otherwise feels well and denies f/c/s, chest pain, sob, n/v/d. She is hungry and wishes she could have a diet. SHe is discouraged when she found out her scope is not until 430. Review of Systems Review of Systems: All systems reviewed & are unremarkable except as noted in HPI & below Physical Exam Physical Exam: Gen: WD/WN, sitting up in bed, NAD, A&O x3 HEENT: Normocephalic, atraumatic, conjunctivae moist, sclerae anicteric, mucous membranes moist. Lung: Clear to Auscultation bilaterally on 2L of O2, no w/r/r Heart: Regular rate, regular rhythm, 1/6 JAQUAN LUSB, rubs, or gallops Abdomen: Soft, NT, ND +BS x 4 Extremities: No edema Skin: Warm, no rash, negative turgor. Results & Data Results & Data Vital Signs (Past 12 Hours) Vital Signs Temp Pulse Resp BP Pulse Ox O2 Del Method O2 Flow Rate 04/08/24 07:15 36.5 C 70 18 145/63 H 95 Room Air 04/08/24 06:59 67 18 95 Nasal Cannula 2 Laboratory Results I have independently reviewed and interpreted patient's labs including CBC, BMP Short CBC 04/08/24 Range/Units 05:24 WBC 6.92 (4.8-10.8) K/ul Hgb 9.1 L (12.0-16.0) g/dl Hct 28.3 L (37.0-47.0) % Plt Count 307 (130-400) K/uL BMP 04/08/24 05:24 Sodium 143 Potassium 3.6 Chloride 107 Carbon Dioxide 30 BUN 6 Creatinine 0.82 Glucose 102 H Calcium 8.5 L Medications Administered Current Inpatient Medications Acetaminophen (Acetaminophen 500 Mg Tab) 1,000 mg PO Q8H PRN PRN Reason: Pain or Fever Stop: 04/29/24 19:29 Last Admin: 04/01/24 21:18 Dose: 1,000 mg Albuterol (Albut/Ipratrop 3mg/0.5mg Neb 3 Ml Vial) 3 ml NEB BIDR [facility]; Protocol Stop: 05/06/24 12:44 Last Admin: 04/08/24 06:59 Dose: 3 ml Amlodipine Besylate (Amlodipine Besylate 5 Mg Tab) 2.5 mg PO BID [facility] Stop: 04/29/24 20:59 Last Admin: 04/08/24 07:42 Dose: 2.5 mg Atorvastatin Calcium (Atorvastatin 40 Mg Tab) 80 mg PO DAILY [facility] Stop: 04/30/24 08:59 Last Admin: 04/08/24 07:42 Dose: 80 mg Benzonatate (Benzonatate 100 Mg Capsule) 100 mg PO TID PRN PRN Reason: Cough Stop: 04/30/24 05:59 Last Admin: 04/04/24 23:02 Dose: 100 mg Buspirone HCl (Buspirone 5 Mg Tab) 5 mg PO BID [facility] Stop: 04/29/24 20:59 Last Admin: 04/08/24 07:42 Dose: 5 mg Cefuroxime Axetil (Cefuroxime Axetil 250 Mg Tablet) 500 mg PO BID [facility] Stop: 04/08/24 21:01 Last Admin: 04/08/24 07:41 Dose: 500 mg Clopidogrel Bisulfate (Clopidogrel Bisulfate 75 Mg Tab) 75 mg PO QAM [facility] Stop: 04/30/24 08:59 Last Admin: 04/06/24 13:59 Dose: Not Given Famotidine (Famotidine 20 Mg Tab) 20 mg PO DAILY [facility] Stop: 04/30/24 08:59 Last Admin: 04/08/24 10:40 Dose: 20 mg Fluticasone Propionate (Fluticasone Propionate Na Spr 16 Gm Btl) 2 sprays NA DAILY [facility] Stop: 04/30/24 08:59 Last Admin: 04/08/24 07:43 Dose: 2 sprays Guaifenesin (Guaifenesin 600 Mg Tabcr) 1,200 mg PO Q12H [facility] Stop: 05/01/24 11:21 Last Admin: 04/08/24 10:40 Dose: 1,200 mg Hydrocodone Bit/Homatropine Methylb (Hydrocodone/Homatropine Syrup 5mg/1.5mg 5ml Udp) 5 ml PO Q6H PRN PRN Reason: Cough Stop: 04/15/24 02:45 Last Admin: 04/06/24 08:48 Dose: 5 ml Lactobacillus Acidophilus (Advanced Probiotic 625 Mg Capsule) 1,250 mg PO DAILY [facility] Stop: 05/02/24 10:39 Last Admin: 04/08/24 07:41 Dose: 1,250 mg Levalbuterol HCl (Levalbuterol Hcl 0.63 Mg/3 Ml Neb) 0.63 mg NEB Q4H PRN; Protocol PRN Reason: Shortness Of Breath Or Wheezing Stop: 04/29/24 19:29 Last Admin: 03/30/24 20:10 Dose: 0.63 mg Levothyroxine Sodium (Levothyroxine Sodium 50 Mcg Tablet) 50 mcg PO DAILYBB [facility] Stop: 04/30/24 06:29 Last Admin: 04/08/24 06:17 Dose: 50 mcg Loperamide HCl (Loperamide Hcl 2 Mg Cap) 2 mg PO Q4H PRN PRN Reason: Diarrhea Stop: 05/05/24 08:14 Metoprolol Succinate (Metoprolol Succ 50mg Ext Rel Tab) 50 mg PO DAILY [facility] Stop: 04/30/24 08:59 Last Admin: 04/08/24 07:43 Dose: 50 mg Pantoprazole Sodium (Pantoprazole 40 Mg Tab) 40 mg PO DAILY [facility] Stop: 04/30/24 08:59 Last Admin: 04/08/24 07:42 Dose: 40 mg Paroxetine HCl (Paroxetine Hcl 20 Mg Tab) 20 mg PO DAILY [facility] Stop: 04/30/24 08:59 Last Admin: 04/08/24 07:41 Dose: 20 mg Umeclidinium/Vilanterol (Umeclidinium/Vilanterol 62.5/25mcg 7 Puffs/Inhaler) 1 puffs INH DAILY [facility] Stop: 04/30/24 08:59 Last Admin: 04/08/24 07:43 Dose: 1 puffs Zinc Acetate/Diphenhydramine (Diphenhydramine 2%/Zinc 0.1% Cream 28.4gm Tube) 1 appln EXT BID PRN PRN Reason: Rash Stop: 05/05/24 05:33 Last Admin: 04/05/24 06:01 Dose: 1 appln
--- NOTE | 2024-04-08 15:07 | Anesthesiology Consultation ---
Date of Service April 08, 2024 Assessment & Plan (1) Encounter for pre-operative examination: Chart Review Chart Review: Acceptable Risk for Surgery and Patient NOT seen in Pre Admission Testing Consults Requested none History Surgery Operation Date: 04/04/24 17:10 Proposed Procedures p Esophagogastroduodenoscopy Dr. Luz Maria Loera MD Operation Date: 04/08/24 16:30 Proposed Procedures p Colonoscopy Dr. Kyle Wright MD Height/Weight Height: 5 ft Weight: 70.2 kg Allergies Allergy/AdvReac Type Severity Reaction Status Date / Time Iodinated Contrast Media Allergy Intermediate IV dye Verified 04/04/24 10:44 -hives trolamine salicylate Allergy Mild Rash Verified 04/07/24 12:55 [From Myoflex] NSAIDS (Non-Steroidal Allergy Unknown UNKNOWN Verified 04/04/24 10:44 Anti-Inflamma primidone Allergy Unknown UNKNOWN Verified 04/04/24 10:44 sertraline Allergy Unknown UNKNOWN Verified 04/04/24 10:44 Sulfa (Sulfonamide Allergy Unknown "SULFA" Verified 04/04/24 10:44 Antibiotics) ALLERGY Medications Home Medications Medication Instructions Recorded Confirmed Last Taken buspirone 5 mg tablet 5 mg PO BID 06/01/21 03/30/24 09/14/21 meclizine 12.5 mg tablet 12.5 mg PO TID PRN Dizziness 06/01/21 03/30/24 Unknown famotidine 20 mg tablet (Acid 20 mg PO DAILY #90 tabs 06/02/21 03/30/24 09/15/21 Assembler Piano (famotidine)) fluticasone propionate 50 2 spray intranasal DAILY #15.8 08/24/21 03/30/24 09/14/21 mcg/actuation nasal grams spray,suspension levothyroxine 50 mcg tablet 50 mcg PO DAILYBB 09/09/21 03/30/24 09/14/21 (Synthroid) paroxetine HCl 20 mg tablet 20 mg PO DAILY 09/09/21 03/30/24 09/14/21 clopidogrel 75 mg tablet 75 mg PO QAM #30 tabs 09/11/21 03/30/24 04/06/22 Flutter Valve #1 ea 03/14/22 02/02/24 Unknown Portable Oxygen #1 ea 07/26/22 02/02/24 Unknown fluticasone fur. 100 mcg-umeclid 1 inh inhalation DAILY #3 Inhalers 07/26/23 03/30/24 Unknown 62.5 mcg-vilant 25 mcg inhalat.powder (Trelegy Ellipta) atorvastatin 80 mg tablet 80 mg PO DAILY 07/29/23 03/30/24 Unknown levalbuterol tartrate 45 1 inh inhalation Q6H PRN Shortness 07/29/23 03/30/24 Unknown mcg/actuation aerosol inhaler Of Breath Or Wheezing metoprolol succinate 50 mg 50 mg PO DAILY 07/29/23 03/30/24 Unknown tablet,extended release 24 hr omeprazole 40 mg capsule,delayed 40 mg PO DAILY 07/29/23 03/30/24 Unknown release amlodipine 2.5 mg tablet 2.5 mg PO BID #180 tabs 08/14/23 03/30/24 Unknown guaifenesin 600 mg tablet, 1,200 mg (2 x 600 mg) PO Q12H #60 04/08/24 Unknown extended release 12 hr (Mucinex) tabs umeclidinium 62.5 mcg-vilanterol 1 inh inhalation DAILY #60 ea 04/08/24 Unknown 25 mcg/actuation powdr for inhalation (Anoro Ellipta) Active Medications Generic Name Dose Route Start Last Admin Trade Name Freq PRN Reason Stop Dose Admin Acetaminophen 1,000 mg 03/30/24 19:30 04/01/24 21:18 Acetaminophen 500 Mg Tab PO 04/29/24 19:29 1,000 mg Q8H PRN Administration Pain or Fever Albuterol 3 ml 04/06/24 12:45 04/08/24 06:59 Albut/Ipratrop 3mg/0.5mg Neb 3 Ml Vial NEB 05/06/24 12:44 3 ml BIDR SMILEY Administration Protocol Amlodipine Besylate 2.5 mg 03/30/24 21:00 04/08/24 07:42 Amlodipine Besylate 5 Mg Tab PO 04/29/24 20:59 2.5 mg BID SMILEY Administration Atorvastatin Calcium 80 mg 03/31/24 09:00 04/08/24 07:42 Atorvastatin 40 Mg Tab PO 04/30/24 08:59 80 mg DAILY SMILEY Administration Benzonatate 100 mg 03/31/24 06:00 04/04/24 23:02 Benzonatate 100 Mg Capsule PO 04/30/24 05:59 100 mg TID PRN Administration Cough Buspirone HCl 5 mg 03/30/24 21:00 04/08/24 07:42 Buspirone 5 Mg Tab PO 04/29/24 20:59 5 mg BID SMILEY Administration Cefuroxime Axetil 500 mg 04/06/24 21:00 04/08/24 07:41 Cefuroxime Axetil 250 Mg Tablet PO 04/08/24 21:01 500 mg BID SMILEY Administration Clopidogrel Bisulfate 75 mg 03/31/24 09:00 04/06/24 13:59 Clopidogrel Bisulfate 75 Mg Tab PO 04/30/24 08:59 Not Given QAM SMILEY Famotidine 20 mg 03/31/24 09:00 04/08/24 10:40 Famotidine 20 Mg Tab PO 04/30/24 08:59 20 mg DAILY SMILEY Administration Fluticasone Propionate 2 sprays 03/31/24 09:00 04/08/24 07:43 Fluticasone Propionate Na Spr 16 Gm Btl NA 04/30/24 08:59 2 sprays DAILY SMILEY Administration Guaifenesin 1,200 mg 04/01/24 11:23 04/08/24 10:40 Guaifenesin 600 Mg Tabcr PO 05/01/24 11:21 1,200 mg Q12H SMILEY Administration Hydrocodone Bit/Homatropine Methylb 5 ml 04/01/24 02:46 04/06/24 08:48 Hydrocodone/Homatropine Syrup 5mg/1.5mg 5ml Udp PO 04/15/24 02:45 5 ml Q6H PRN Administration Cough Lactobacillus Acidophilus 1,250 mg 04/02/24 10:40 04/08/24 07:41 Advanced Probiotic 625 Mg Capsule PO 05/02/24 10:39 1,250 mg DAILY SMILEY Administration Levalbuterol HCl 0.63 mg 03/30/24 19:30 03/30/24 20:10 Levalbuterol Hcl 0.63 Mg/3 Ml Neb NEB 04/29/24 19:29 0.63 mg Q4H PRN Administration Shortness Of Breath Or Wheezing Protocol Levothyroxine Sodium 50 mcg 03/31/24 06:30 04/08/24 06:17 Levothyroxine Sodium 50 Mcg Tablet PO 04/30/24 06:29 50 mcg DAILYBB SMILEY Administration Metoprolol Succinate 50 mg 03/31/24 09:00 04/08/24 07:43 Metoprolol Succ 50mg Ext Rel Tab PO 04/30/24 08:59 50 mg DAILY SMILEY Administration Pantoprazole Sodium 40 mg 03/31/24 09:00 04/08/24 07:42 Pantoprazole 40 Mg Tab PO 04/30/24 08:59 40 mg DAILY SMILEY Administration Paroxetine HCl 20 mg 03/31/24 09:00 04/08/24 07:41 Paroxetine Hcl 20 Mg Tab PO 04/30/24 08:59 20 mg DAILY SMILEY Administration Umeclidinium/Vilanterol 1 puffs 03/31/24 09:00 04/08/24 07:43 Umeclidinium/Vilanterol 62.5/25mcg 7 Puffs/Inhaler INH 04/30/24 08:59 1 puffs DAILY SMILEY Administration Zinc Acetate/Diphenhydramine 1 appln 04/05/24 05:34 04/05/24 06:01 Diphenhydramine 2%/Zinc 0.1% Cream 28.4gm Tube EXT 05/05/24 05:33 1 appln BID PRN Administration Rash NPO Date Last Intake of Fluids: 04/08/24 Time Last Intake of Fluids: 07:45 Date Last Intake of Solids: 04/01/24 Time Last Intake of Solids: 18:00 Past Medical History Medical History (Updated 04/08/24 @ 15:16 by Sixto Driscoll MD) Encounter for pre-operative examination GI bleed 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 Pacemaker SSS (sick sinus syndrome) CAD (coronary artery disease) Essential tremor Abnormal urinalysis Acute anemia Multifocal pneumonia Weakness Anemia Hypoxic Bronchiectasis with (acute) exacerbation SOB (shortness of breath) Weakness Hypercholesterolemia Osteoporosis Secondary hyperparathyroidism GERD (gastroesophageal reflux disease) Heart block Vitamin D deficiency Past Family History Family History Father Hypertension Heart disease Mother Hypertension Asthma Other Cancer Diabetes Kidney disease Lung disease No family history of adverse response to anesthesia No family history of bleeding disorder Past Surgical History Surgical History Hx of blepharoplasty Hx of repair of rotator cuff Hx of tonsillectomy History of breast lump removal Social History Smoking Status: Former smoker Do You Dip or Chew Tobacco: No Hx Alcohol Use: Yes Alcohol type: wine alcohol intake frequency: holidays/special occasions only Hx Substance Use: No substance use type: does not use Physical Exam Vital Signs Last Vital Signs Temp 36.5 C 04/08/24 15:00 Pulse 16 L 04/08/24 15:00 Resp 16 04/08/24 15:00 BP 169/82 H 04/08/24 15:00 Pulse Ox 92 04/08/24 15:00 O2 Del Method Room Air 04/08/24 15:00 O2 Flow Rate 2 04/08/24 06:59 Testing Laboratory Results 04/08/24 05:24 04/08/24 05:24 Urine Color Dark Yellow 03/30/24 15:34 Urine Appearance Turbid (Clear) A 03/30/24 15:34 Urine pH 5.5 (4.5-7.5) 03/30/24 15:34 Ur Specific [place] 1.036 (1.000-1.030) H 03/30/24 15:34 Urine Protein 3+ (Negative) H 03/30/24 15:34 Urine Glucose (UA) Negative (Negative) 03/30/24 15:34 Urine Ketones Trace (Negative) H 03/30/24 15:34 Urine Nitrite Negative (Negative) 03/30/24 15:34 Ur Leukocyte Esterase 1+ (Negative) H 03/30/24 15:34 Urine WBC (Auto) 11-20 /hpf (0-5) H 03/30/24 15:34 Urine RBC (Auto) 6-10 /hpf (0-2) H 03/30/24 15:34 U Hyaline Cast (Auto) 6-10 /lpf (0-2) H 03/30/24 15:34 U Epithel Cells (Auto) 6-10 /hpf (0-2) H 03/30/24 15:34 Urine Bacteria (Auto) 1+ (None Seen) H 03/30/24 15:34 04/02/24 05:22 Gram Stain - Final Sputum, Expectorated Sputum Culture - Final Light normal yani. 04/02/24 05:22 Gram Stain - Final Sputum, Expectorated 03/30/24 15:34 Urine Culture - Final Urine,Clean Catch More than three types of organisms present, all high counts. Repeat collection recommended. No further identifications or sensitivities to follow. Electrocardiogram Date: 03/30/24 DICTATED BY: Morgan Almazan MD Test Reason : Blood Pressure : */* mmHG Vent. Rate : 66 BPM Atrial Rate : 66 BPM P-R Int : 170 ms QRS Dur : 132 ms QT Int : 416 ms P-R-T Axes : 72 92 -10 degrees QTcB Int : 436 ms Atrial-paced rhythm Right bundle branch block Abnormal ECG When compared with ECG of 30-Jul-2023 08:34, Electronic atrial pacemaker has replaced AV sequential or dual chamber electronic pacemaker Confirmed by Morgan Almazan ([id number]) on 04/01/2024 3:45:08 PM Other Testing 04/01/24: IMPRESSION: Multifocal consolidations compatible with pneumonia. Trace bilateral pleural effusions with underlying atelectasis. Follow-up to resolution is recommended.
--- NOTE | 2024-04-08 17:14 | Gastroenterology Progress Note ---
Date of Service April 08, 2024 Assessment & Plan (1) GI bleed: Plan: Melanotic stool with a negative EGD. Evaluate for potential right colon source. Patient is prep for colonoscopy today. Informed consent obtained Admission and Anticipated Discharge Date Admission Date: March 30, 2024 Subjective Dark stool negative EGD. For colonoscopy scheduled by Dr. Garcia Physical Exam Physical Exam: Patient examined at the bedside. Appears well in no acute distress. Benign abdomen. Results & Data Results & Data Vital Signs (Past 12 Hours) Vital Signs Temp Pulse Pulse Resp BP Pulse Ox O2 Del Method 04/08/24 15:00 36.5 C 16 L 67 16 169/82 H 92 Room Air 04/08/24 14:07 36.8 C 66 18 172/76 H 96 Room Air 04/08/24 08:30 Room Air 04/08/24 07:15 36.5 C 70 18 145/63 H 95 Room Air 04/08/24 06:59 67 18 95 Nasal Cannula O2 Flow Rate 04/08/24 15:00 04/08/24 14:07 04/08/24 08:30 04/08/24 07:15 04/08/24 06:59 2 PG Care Time/CCT Total # of Minutes Spent Total Time Spent with Patient: Total time spent is greater than 50% in coordination of care (as documented) at patient's floor/unit and/or counseling patient: Coding Level of Care Code None Diagnoses GI bleed K92.2
--- NOTE | 2024-04-08 17:42 | GI REPORT ---
[facility] Patient: BRANDON RANGEL : 1935 Sex at : Female Age: 88 Years Procedure: Colonoscopy Date: 04/08/2024 Attending Physician: Alvaro Wright MD Referring MD: Lacho Street DO Indications: - Evaluation of unexplained GI bleeding presenting with Melena (upper GI source has been excluded) Medications: - Monitored Anesthesia Care Complications: - No immediate complications. Estimated Blood Loss: - Estimated blood loss: None. Procedure: - The adult colonoscope was introduced through the anus and advanced to the cecum, identified by appendiceal orifice and ileocecal valve. - The colonoscopy was performed without difficulty. - The quality of the bowel preparation was adequate. Findings: - The perianal examination was normal. - The colon (entire examined portion) appeared normal. Impression: - The entire examined colon is normal. - No specimens collected. - No source for gastrointestinal bleeding identified. EGD was negative. Potential for small bowel AVMs. Recommend no further investigations follow clinical course Recommendation: Procedure Code(s): - 86396, Colonoscopy, flexible; diagnostic, including collection of specimen(s) by brushing or washing, when performed (separate procedure) Diagnosis Code(s): - K92.1, Melena (includes Hematochezia) CPT(R) - 2023 copyright [employer]. All Rights Reserved. The CPT codes, CCI edits and ICD codes generated are intended as suggestions and were generated based on input data. These codes are preliminary and upon glass bulb machine adjuster review may be revised to meet current compliance and payer requirements. The provider is responsible for the final determination of appropriate codes, and modifiers. Alvaro Wright MD This document has been electronically signed. Note Initiated:04/08/2024 Note Completed:04/08/2024 5:42 PM [id number]
--- NOTE | 2024-04-08 17:56 | Anesthesiology Progress Note ---
Date of Service April 08, 2024 Anesthesia Post Procedure Vital Signs Vital Signs: Temp Pulse Pulse Resp BP Pulse Ox O2 Del Method 04/08/24 17:40 71 12 112/54 L 94 Room Air 04/08/24 15:00 36.5 C 16 L 67 16 169/82 H 92 Room Air 04/08/24 14:07 36.8 C 66 18 172/76 H 96 Room Air 04/08/24 08:30 Room Air 04/08/24 07:15 36.5 C 70 18 145/63 H 95 Room Air 04/08/24 06:59 67 18 95 Nasal Cannula 04/07/24 19:46 81 16 96 Nasal Cannula 04/07/24 19:14 37.0 C 66 17 164/71 H 91 Room Air O2 Flow Rate 04/08/24 17:40 04/08/24 15:00 04/08/24 14:07 04/08/24 08:30 04/08/24 07:15 04/08/24 06:59 2 04/07/24 19:46 2 04/07/24 19:14 Pain Intensity Left Shoulder: Pain Intensity: 4 Transfer of Care Handoff Completed per policy Notes Mental Status: alert / awake / arousable and participated in evaluation Patient Amnestic to Procedure: Yes Nausea / Vomiting: adequately controlled Pain: adequately controlled Airway Patency, RR, SpO2: stable & adequate BP & HR: stable & adequate Hydration State: stable & adequate Anesthetic Complications: no major complications apparent
[2024-04-08] MEDS: PROPOFOL IV EMULSION 10 MG/ML 20 ML VIAL IV ONE (18:43)
[2024-04-09 07:46] VITALS: BP 142/62; TEMP 98.1
[2024-04-09 08:47] VITALS: PULSE 81; RESP 16; O2SAT 92
--- NOTE | 2024-04-09 10:12 | Discharge Summary ---
<Statement entered by Lacho Street DO - 04/09/24 11:42> I have seen and examined the patient and have discussed the case with the provider above. I have reviewed the advanced practitioner's documentation, and I agree with, and take responsibility for that plan of care. Patient up and ambulating in the room. On room air. No shortness of breath. Feels that her energy has returned. Lungs: Clear to auscultation, no wheezes or rails Agree with discharge plan as outlined below Discharge Summary Date of Service April 09, 2024 Principal Dx & Hospital Course #1 = Principal Diagnosis (1) Multifocal pneumonia: (2) Bronchiectasis with (acute) exacerbation: (3) Acute anemia: (4) Abnormal urinalysis: Plan This is an 88-year-old female with PMH of HTN, HLD, CAD, asthma, bronchiectasis, chronic hypoxic respiratory failure (on 2L via NC at baseline), SSS s/p pacemaker placement, CKD stage III, depression/anxiety, hypothyroidism and others listed below who was admitted on 03/30/2024 for evaluation of generalized weakness and SOB and was found to have multifocal PNA, bronchiectasis flare. A CT chest was performed on admission consistent with multiple consolidations compatible with pneumonia. She required 3 L of oxygen via nasal cannula on admission. Her viral respiratory bio fire was negative. She was initially started on IV antibiotics. She was seen and evaluated by pulmonology due to her history of bronchiectasis and her familiarity with the [facility] pulmonology group. It was recommended that her Trelegy be transition to Anoro as the steroid component of Trelegy may be contributing to her underlying infection. She was treated with pulmonary toilet and nebulizer therapy. Her symptoms gradually improved. During her hospital stay it was noted that her hemoglobin was around 9. Per outpatient epic records in October her hemoglobin was 13.3. Her anemia panel was relatively unremarkable except for a mildly low iron, but normal ferritin. Patient reported approximately 1 week of dark stools. She was seen and evaluated by GI and underwent an EGD and colonoscopy. These were both unremarkable. It is recommended if patient continue to have issues with low hemoglobin she may benefit from a video capsule study. On day of discharge patient was in good spirits. She was hemodynamically stable. She was no longer requiring any oxygen during the day. She will continue 2 L of oxygen at night. She was ambulating by herself without any difficulty. She will be discharged back to her independent living facility. Notes For Next Care Provider Recommend repeat CT chest in 8 weeks to ensure resolution. Recommend close monitoring of hemoglobin. She may benefit for IV Venofer infusio ns as outpatient if persistent. Medication Changes From Visit STOP taking your Trelegy Inhaler. Your Shark Biologist, Dr. Alves, recommended switching to a new inhaler called, ANORO (Umeclidinium/Vilanterol) one puff daily. It is recommended you take Muccinex 1200mg by mouth twice daily. Continue all other medications as prescribed. Admission HPI Per Admitting Provider Ms. Luh Ro is an 88-year-old female with PMH HTN, dyslipidemia, CAD, asthma, bronchiectasis, chronic hypoxic respiratory failure on 2 L oxygen, SSS s/p pacemaker, CKD III, depression, anxiety, hypothyroidism presented to [facility] due to generalized weakness and SOB progressed from baseline. Patient states that last week she has been experiencing cold like symptoms marked by increased sputum production and cough. She states that she was living with her sisters as well for last 2 weeks for Holidays and have been without her oxygen. She notes that she was eating less and becoming weaker. She denies fevers, wheezing, diarrhea, dysuria, but does endorse chills and darker urine. She states on Monday, she was in bed and attempted to get up, but after her left shoulder repair, she never got her strength back and ultimately struggled to sit herself up and falling out of bed. Her left shoulder is bruised and superficially tender. She reports a bruise to left eye, but denies any neurologic changes. She was brought to ED at behest of her sisters given her weakness. In the ED, vitals were notable for BP of 110s-160s HR of 60s , and O2 sat of low 90s on 2L (home o2) Imaging revealed no fracture to LUE, no intracranial process,and no signs of consolidation on CXR UA abnormal, labs with WBC to 14, stable anemia, hyponatremia to 132 ED interventions: CTX, azithromycin, 1 L NS Patient to be admitted to med/tele for further evaluation and management of weakness/SOB, concern for possible flare of bronchiectasis Admission Exam Per Admitting Provider GENERAL APPEARANCE: AxOx4, pleasant elderly woman, no distress HEENT: NC, AT. MMM. EOMI, clear conjunctiva, oropharynx clear. NECK: Supple without lymphadenopathy. No stiffness or restricted ROM. HEART: Normal rate and regular rhythm, normal S1/S1, no m/r/g LUNGS: diminished bibasilar breath sounds, rhonchi cleared with cough ABDOMEN: Soft, nontender, nondistended with good bowel sounds heard. EXTREMITIES: Without cyanosis, clubbing or edema. NEUROLOGICAL: Grossly nonfocal. Alert and oriented, moving all 4 extremities. CN not formally tested but appear grossly intact Skin: resolving ecchymosis over left eye, resolving ecchymosis of anterior left shoulder Discharge Exam Gen: WD/WN, sitting up in bed, NAD, A&O x3 HEENT: Normocephalic, atraumatic, conjunctivae moist, sclerae anicteric, mucous membranes moist. Lung: Clear to Auscultation bilaterally off O2, no w/r/r Heart: Regular rate, regular rhythm, 1/6 JAQUAN LUSB, rubs, or gallops Abdomen: Soft, NT, ND +BS x 4 Extremities: No edema Skin: Warm, no rash, negative turgor. Updated Medication List Medication Instructions Recorded Confirmed Type buspirone 5 mg tablet 5 mg PO BID 06/01/21 03/30/24 History meclizine 12.5 mg tablet 12.5 mg PO TID PRN Dizziness 06/01/21 03/30/24 History famotidine 20 mg tablet (Acid 20 mg PO DAILY #90 tabs 06/02/21 03/30/24 Rx Respiratory Care Technician (famotidine)) fluticasone propionate 50 2 spray intranasal DAILY #15.8 08/24/21 03/30/24 Rx mcg/actuation nasal grams spray,suspension levothyroxine 50 mcg tablet 50 mcg PO DAILYBB 09/09/21 03/30/24 History (Synthroid) paroxetine HCl 20 mg tablet 20 mg PO DAILY 09/09/21 03/30/24 History clopidogrel 75 mg tablet 75 mg PO QAM #30 tabs 09/11/21 03/30/24 Rx Flutter Valve #1 ea 03/14/22 02/02/24 Rx Portable Oxygen #1 ea 07/26/22 02/02/24 Rx fluticasone fur. 100 mcg-umeclid 1 inh inhalation DAILY #3 Inhalers 07/26/23 03/30/24 Rx 62.5 mcg-vilant 25 mcg inhalat.powder (Trelegy Ellipta) atorvastatin 80 mg tablet 80 mg PO DAILY 07/29/23 03/30/24 History levalbuterol tartrate 45 1 inh inhalation Q6H PRN Shortness 07/29/23 03/30/24 History mcg/actuation aerosol inhaler Of Breath Or Wheezing metoprolol succinate 50 mg 50 mg PO DAILY 07/29/23 03/30/24 History tablet,extended release 24 hr omeprazole 40 mg capsule,delayed 40 mg PO DAILY 07/29/23 03/30/24 History release amlodipine 2.5 mg tablet 2.5 mg PO BID #180 tabs 08/14/23 03/30/24 Rx guaifenesin 600 mg tablet, 1,200 mg (2 x 600 mg) PO Q12H #60 04/08/24 Rx extended release 12 hr (Mucinex) tabs umeclidinium 62.5 mcg-vilanterol 1 inh inhalation DAILY #60 ea 04/08/24 Rx 25 mcg/actuation powdr for inhalation (Anoro Ellipta) Hospital Stay Data Consultations 03/30/24 16:43 ED Decision to Admit Stat 04/01/24 08:28 Consult Pulmonology Routine 04/02/24 10:27 Consult Gastroenterology Routine Procedures Performed Operation Date: 04/08/24 16:30 Actual Procedures p Colonoscopy - Alvaro Wright MD Diagnostic Imagining Performed Chest X-Ray 03/30/24 14:01 Chest radiograph, one view History: Weakness Comparison: None Findings: Single AP view of the chest performed. No pneumothorax. Mild perihilar opacity may represent atelectasis. There is right hilar fullness. Right upper lobe scattered patchy nodular opacities are seen. Some smaller nodular opacities are seen in the right lower lung. The heart is enlarged. There is a leftWall dual-lead AICD. No visualized bony or soft tissue abnormality. Impression: Scattered nodular opacities in the right lung, which may be infectious. There is right hilar fullness, possibly due to lymphadenopathy, either reactive or malignant not excluded. Follow-up to resolution or chest CT is recommended. Electronically signed by Antwan Ro 03-30-2024 3:[address] 03/30/24 14:05 CT cervical spine without IV contrast History: Pain Comparison: None Technique: Using multidetector thin collimation helical acquisition technique, axial, coronal and sagittal CT images through the cervical spine were obtained without intravenous contrast. Dose reduction techniques were achieved by using automatic exposure control and/or adjustment of mA and/or kV according to patient size and/or use of iterative reconstruction technique. Findings: The cervical vertebrae are normally aligned. Normal cervical lordosis. No acute fracture or subluxation. No prevertebral edema. Moderate multilevel discogenic and facet degenerative change. Osteopenia. No abnormality of the paraspinous soft tissues. Impression: No acute fracture or traumatic subluxation. Electronically signed by Antwan Ro 03-30-2024 2:[address] 03/30/24 14:05 CT head without contrast History: Trauma Comparison: None Technique: Using multidetector thin collimation helical acquisition technique, axial, coronal and sagittal CT images from the skull base to the vertex were obtained without intravenous contrast. Dose reduction techniques were achieved by using automatic exposure control and/or adjustment of mA and/or kV according to patient size and/or use of iterative reconstruction technique. Findings: No intracranial hemorrhage, mass-effect, or midline shift. The ventricles are proportionate to the cerebral sulci. Encephalomalacia related to a moderate chronic right parietal lobe infarct otherwise the koch to white matter differentiation of the cerebral hemispheres is preserved. The basal cisterns are patent. There is moderate cerebral atrophy. Moderate, patchy low-attenuation changes in the white matter, most suggestive of sequelae of chronic small vessel ischemic disease. The visualized paranasal sinuses are clear. Mastoid air cells are clear. Impression: No acute intracranial pathology. Electronically signed by Antwan Ro 03-30-2024 2:[address] 03/30/24 14:17 CT maxillofacial without contrast History: Trauma Comparison: None Technique: Using thin collimation multidetector helical acquisition technique, axial and coronal thin section CT images were reconstructed through the facial bones. Images were reviewed in bone and soft tissue windows. One or more of the following dose-optimizing techniques was utilized for this exam: automated exposure control, adjustment of the mA and/or kV according to patient size, and/or use of iterative reconstruction technique. Findings: There is no significant soft tissue swelling of the face. There is no evident fracture of the facial bones. The cribriform plate appears intact. Alignment of the facial bones appears normal. There is no hematoma, soft tissue mass or gas visualized within the orbits. Mild mucosal thickening of the ethmoid air cells and frontal sinuses. Impression: Normal CT study of the facial bones. Electronically signed by Antwan Ro 03-30-2024 2:53 PM Shoulder X-Ray 03/30/24 14:53 Study: Left shoulder, 5 views History: Pain Comparison: None Findings: There is no acute fracture or dislocation. There is a total left shoulder arthroplasty. Alignment is anatomic. Joint spaces are well maintained. There is no joint effusion or significant soft tissue swelling. Bone mineralization is normal. Impression: No acute bony abnormality of the left shoulder. Left shoulder arthroplasty appears intact. Electronically signed by Antwan Ro 03-30-2024 3:[address] 04/01/24 08:28 CT chest diagnostic wo con CLINICAL HISTORY: bronchiectasis, sob, wheezing TECHNIQUE: Multidetector row helical CT of the chest was performed. Coronal and sagittal reformations were obtained. Automated dose lowering techniques and/or adjustment according to patient size were utilized for this exam. CT DOSE: 445.11 mGy.cm Comparison: Comparison is made to CT chest 06/16/2022 FINDINGS: Lungs and pleura: Consolidative changes are seen throughout, most prominently in the right upper lobe. There are trace bilateral pleural effusions with associated atelectasis. Heart and pericardium: Cardiomegaly is seen with biatrial enlargement. Vessels: Moderate atherosclerotic changes in the aorta and coronary arteries. Mediastinum and yoko: Subcentimeter lymph nodes are seen. Chest wall and lower neck: Unremarkable. Abdomen: Moderate hiatal hernia is seen. Bones: Degenerative changes in the thoracic spine. IMPRESSION: Multifocal consolidations compatible with pneumonia. Trace bilateral pleural effusions with underlying atelectasis. Follow-up to resolution is recommended. ACT 112: Negative or not required by law. Electronically signed by: Chi Golden M.D. 04/01/2024 9:34 AM Pending Results Patient Have Any Pending Studies at Discharge: No Discharge Instructions Given to Patient (Per Discharging Provider) MEDICATION CHANGES: STOP taking your Trelegy Inhaler. Your Shark Biologist, Dr. Alves, recommended switching to a new inhaler called, ANORO (Umeclidinium/Vilanterol) one puff daily. It is recommended you take Muccinex 1200mg by mouth twice daily. Continue all other medications as prescribed. SUMMARY OF TEST RESULTS: You were admitted to the hospital secondary to Pneumonia and increased oxygen requirement. It was also felt that you were having a flare of your bronchiectasis. You were started on IV antibiotics and breathing treatments. You were seen and evaluated by your lung doctor who recommended switching your inhaler from Trelegy to Anoro. During your hospital stay it was found that you were Anemic and your blood counts had dropped significantly from your previous lab work. Your hgb on day of discharge was 9.0. You were seen by the GI team and underwent an endoscopy and colonoscopy. Your Endoscopy and colonoscopy were unremarkable. If you start to notice any further black stools please call your primary care provider right away as you may need a video capsule study. PENDING TEST RESULTS: None RECOMMENDATIONS FOR FOLLOW-UP: Please follow up with your Primary Care Provider as scheduled on 04/11/24 @ 11:20 a.m. Please arrive 15 min before your scheduled appt. Please follow up with your Shark Biologist as scheduled. They will be calling you with a follow up appointment. If you do not hear from them in 1 week please call their office. Please take all medications as prescribed. It is recommended you have your Primary Care Provider monitor your hemoglobin by checking blood work regularly. It is recommended you have a repeat CT scan of your chest in 8 weeks to ensure your Pneumonia has completely resolved. OTHER INSTRUCTIONS: Seek medical attention if you have: * temperature above 101 * chest pain or trouble breathing * abdominal pain, nausea, vomiting * diarrhea, dark stools or bloody stools * any unanswered questions or concerns Call 911 if symptoms are severe. Please take good care of yourself. It has been a pleasure taking care of you. Please take care of yourself. If you have any questions regarding your recent hospitalization please contact [facility] and request Favian Escobar @ [phone]. Total Time Total Time Spent Total Time Spent (In Minutes): 45 minutes
--- NOTE | 2024-04-09 10:38 | Gastroenterology Progress Note ---
Date of Service April 09, 2024 Assessment & Plan Admission and Anticipated Discharge Date Admission Date: March 30, 2024 Supervising Physician Co-Signing Physician Notes Above reviewed. Patient's been discharged. Agree with plan as outlined. Subjective Patient tells me she is feeling well. she is planned to be discharged later today. colonoscopy and EGD were unremarkable for cause of anemia. hgb stable at 9.1 today. gi ros are unremarkable. Review of Systems Review of Systems: All systems reviewed & are unremarkable except as noted in HPI & below Physical Exam Constitutional: WD/WN, vitals as above Respiratory: normal respiratory effort, lungs clear to auscultation Cardiovascular: Rate/Rhythm: regular rate and regular rhythm Gastrointestinal (Abdomen): normal bowel sounds, soft, nontender, no hepatosplenomegaly Psychiatric: Orientation: alert and oriented x 3 Affect: euthymic affect Results & Data Results & Data Vital Signs (Past 12 Hours) Vital Signs Temp Pulse Pulse Pulse Pulse Resp Resp 04/09/24 08:41 88 90 81 18 04/09/24 07:43 98.1 F 79 18 04/09/24 07:30 04/09/24 07:18 69 20 Resp Resp BP Pulse Ox Pulse Ox Pulse Ox Pulse Ox 04/09/24 08:41 16 16 94 93 92 04/09/24 07:43 142/62 H 95 04/09/24 07:30 04/09/24 07:18 94 O2 Del Method O2 Flow Rate 04/09/24 08:41 04/09/24 07:43 Room Air 04/09/24 07:30 Room Air 04/09/24 07:18 Nasal Cannula 2 Coding Level of Care Code 49106 SUB INP/OBS CARE 04/20MIN
[2024-04-09] MEDS: CLOPIDOGREL BISULFATE 75 MG TAB PO ONE (10:51)
== END 2024-04-09 12:03 | disposition home or self-care (01) | DRG 191 ==
LOC: ED 13:39 → SUATTDRO 17:29 → INTOOBSV 17:29 → EDINP 17:29 → 2N 19:30 → 3E 04-01 16:33

== ENCOUNTER 2024-11-27 00:32 | Inpatient (IN) ==
[2024-11-27] MEDS: HYDROmorphone INJ 0.5 MG/0.5 ML SYR IV STA (00:58)
[2024-11-27] MEDS: ONDANSETRON INJ 2 MG/ML 2 ML VIAL IV STA (00:58)
--- NOTE | 2024-11-27 00:59 | Emergency Department Note ---
Impression & Plan Back muscle spasm, JUVENAL (acute kidney injury), T12 compression fracture admit to the [facility] ED Provider Note NAME: BRANDON RANGEL AGE: 89 SEX: Female INFORMANT: Patient ED PROVIDER(S): Brielle Barrios DO CHIEF COMPLAINT: Back spasms PLAN: Disposition: Admit to the [facility] MEDICAL DECISION MAKING: This is an 89-year-old female patient who unfortunately suffered a fall out of bed last week resulting in multiple injuries including a T12 compression fracture. The patient describes persistent back pain since the fall but worsening back spasms tonight. Patient was able to take a leftover pain pill from something previously which did seem to help the pain slightly but now it has drastically worsened. Any type of movement seems to exacerbate her pain. patient was medicated with IV Dilaudid and IV Tylenol which did finally give her some relief of her discomfort. She slept for a good portion of the night but upon awakening this morning, had returned of the severe back spasms. Laboratory studies revealed no significant leukocytosis or anemia. Glucose was 107. BUN was elevated at 31 and creatinine 1.29 with a ratio of 24 consistent with evidence of JUVENAL/dehydration. Patient was bolused with IV normal saline. I discussed the case with the [facility] and they will evaluate for further inpatient care. Care/management discussed with: reconciliation manager and [facility] Triage Nursing notes: reviewed and agree With them. Vital Signs: reviewed and unremarkable Chronic Medical/Social Conditions affecting care: patient describes a previous episode of a fall which resulted in 3 compression fractures in her low back Prior/ Outside/ External records reviewed: I did review the previous records from this most recent fall and the trauma workup. Differential Diagnosis: Muscle spasm, low back pain, cauda equina syndrome, discitis, epidural abscess HPI: 89 year old Female arrives for evaluation of back spasms. patient who unfortunately suffered a fall out of bed last week resulting in multiple injuries including a T12 compression fracture. The patient describes persistent back pain since the fall but worsening back spasms tonight. PAST MEDICAL HISTORY: See Below, PAST SURGICAL HISTORY: See Below, SOCIAL HISTORY: See Below, HOME MEDICATIONS: see list ALLERGIES: see list VITALS: See Below PHYSICAL EXAMINATION: HEENT: Head - normocephalic and atraumatic. Pupils are equal, round, and reactive to light. Extraocular eye muscles are intact, and sclera are anicteric. Nose - moist nasal mucosa without discharge. Mouth - moist buccal mucosa. Oropharynx is nonerythematous and there is no tonsillar exudate or edema noted. Neck: Supple; no JVD or cervical lymphadenopathy Heart: Regular rate and rhythm. There is a normal S1 and S2 with no murmurs, clicks, or gallops appreciated. Lungs: Clear to auscultation bilaterally with no wheezes, rales, or rhonchi. Abdomen: Soft, completely nontender, nondistended, with good bowel sounds. There are no palpable pulsatile masses or hepatosplenomegaly. There is no guarding, rigidity, or rebound noted. Extremities: No evidence of cyanosis, clubbing, or edema. There are easily palpable peripheral pulses. Skin: patient has multiple areas of contusions in different stages of healing from the previous fall. Back: Patient has exquisite pain and muscle spasm in the lower thoracic spine Neuro: The patient is moving all 4 extremities. Muscle strength is normal in all 4 extremities. Emergency department treatment: IV Dilaudid, IV Tylenol, IV Dilaudid, IV normal saline bolus emergency department course: The patient was evaluated in room B-8. A complete history and physical was performed. An IV lock was initiated and labs were drawn as above. previous electronic medical records were reviewed. Patient was given a dose of IV Dilaudid and IV Zofran which gave her some minimal relief of the discomfort. She went on receiving a dose of IV Tylenol and an additional dose of IV Dilaudid which gave her significant relief. Laboratory studies revealed evidence of dehydration. She was bolused with IV normal saline solution. The patient was given some time to sleep. When we were able to get her awake, the patient's severe back spasms returned. Patient will require admission into the hospital for intractable back pain. I discussed the case with the [facility] hospitalist and they will evaluate for further inpatient care. Past Med/Surg History Problem List (Updated 11/27/24 @ 06:41 by Brielle Barrios DO) T12 compression fracture (Acute) JUVENAL (acute kidney injury) (Acute) Back muscle spasm (Acute) T12 compression fracture (Acute) Hematoma of neck (Acute) Eyelid laceration, left (Acute) Fall (Acute) COVID-19 (Acute) Abnormal chest CT History of recent stroke (Acute) CVA (cerebral vascular accident) JUVENAL (acute kidney injury) DVT prophylaxis Acute confusion (Acute) Facial paresthesia (Acute) Hand paresthesia (Acute) Acute loss of vision (Acute) Arterial branch occlusion of retina (Acute) Chronic rhinitis Sensorineural hearing loss of both ears BPPV (benign paroxysmal positional vertigo) Imbalance Dysphonia LPRD (laryngopharyngeal reflux disease) Systolic murmur Cough Dyspnea on exertion Hip pain, left Chronic rhinitis Hypothyroidism Depression Asthma CKD (chronic kidney disease), stage III Hypertension (Acute) Medical History Dysphagia Abnormal ECG Elevated troponin Pneumonia Microscopic hematuria Shoulder pain, left Anxiety and depression Elevated troponin Chest discomfort Pneumonia Weakness of voice Dyspnea on exertion Chronic cough Bronchiectasis Vitamin D deficiency TIA (transient ischemic attack) Changes in vision Encounter for pre-operative examination GI bleed 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 Pacemaker SSS (sick sinus syndrome) CAD (coronary artery disease) Essential tremor Abnormal urinalysis Acute anemia Multifocal pneumonia Weakness Anemia Hypoxic Bronchiectasis with (acute) exacerbation SOB (shortness of breath) Weakness Hypercholesterolemia Osteoporosis Secondary hyperparathyroidism GERD (gastroesophageal reflux disease) Heart block Vitamin D deficiency Surgical History Hx of blepharoplasty Hx of repair of rotator cuff Hx of tonsillectomy History of breast lump removal Family History Father Hypertension Heart disease Mother Hypertension Asthma Other Cancer Diabetes Kidney disease Lung disease No family history of adverse response to anesthesia No family history of bleeding disorder Social History Smoking Status: Never smoker Second Hand Exposure: No; Do You Dip or Chew Tobacco: No; Hx Alcohol Use: Yes Alcohol type: wine Alcohol Intake Frequency Comment: occasional Hx Substance Use: No Preferred Language: Belarusian Communication Ability: Effective Spring Internship Required: No Beliefs That Will Affect Care: None marital status: / Current Living Situation: Alone Current Living Situation Comment: Apartment ([facility]) current occupational status: retired Feels Safe at Home: Yes Assistive Devices: Oxygen - at Night Allergies Allergies Allergy/AdvReac Type Severity Reaction Status Date / Time Iodinated Contrast Media Allergy Intermediate IV dye Verified 09/16/24 12:15 -hives trolamine salicylate Allergy Mild Rash Verified 09/16/24 12:15 [From Myoflex] NSAIDS (Non-Steroidal Allergy Unknown UNKNOWN Verified 09/16/24 12:15 Anti-Inflamma primidone Allergy Unknown UNKNOWN Verified 09/16/24 12:15 sertraline Allergy Unknown UNKNOWN Verified 09/16/24 12:15 Sulfa (Sulfonamide Allergy Unknown "SULFA" Verified 09/16/24 12:15 Antibiotics) ALLERGY Home Meds Home Medications Medication Instructions Recorded Confirmed Oxygen Home 11/27/24 11/27/24 amlodipine 2.5 mg tablet 2.5 mg PO DAILY 11/27/24 11/27/24 atorvastatin 80 mg tablet (Lipitor) 80 mg PO DAILY 11/27/24 11/27/24 buspirone 5 mg tablet 5 mg PO BID PRN Anxiety 11/27/24 11/27/24 clopidogrel 75 mg tablet (Plavix) 75 mg PO DAILY 11/27/24 11/27/24 famotidine 20 mg tablet 20 mg PO DAILY 11/27/24 11/27/24 fluticasone propionate 50 1 spray intranasal DAILY 11/27/24 11/27/24 mcg/actuation nasal spray,suspension hydrochlorothiazide 25 mg tablet 25 mg PO UD 11/27/24 11/27/24 levalbuterol tartrate 45 2 inh inhalation Q4H PRN Shortness 11/27/24 11/27/24 mcg/actuation aerosol inhaler Of Breath Or Wheezing (Xopenex HFA) levothyroxine 50 mcg tablet 50 mcg PO DAILY 11/27/24 11/27/24 metoprolol succinate 50 mg 50 mg PO DAILY 11/27/24 11/27/24 tablet,extended release 24 hr omeprazole 40 mg capsule,delayed 40 mg PO DAILY 11/27/24 11/27/24 release paroxetine HCl 20 mg tablet 20 mg PO DAILY 11/27/24 11/27/24 umeclidinium 62.5 mcg-vilanterol 1 inh inhalation DAILY 11/27/24 11/27/24 25 mcg/actuation powdr for inhalation (Anoro Ellipta) Results & Data (ED) Vital Signs Vital Signs - 24 hr 11/27/24 00:43 11/27/24 00:47 11/27/24 01:27 Temperature 36.6 C Temperature Source Oral Pulse Rate 68 68 Respiratory Rate 18 Respiratory Effort / Characteristics Non-Labored Spontaneous Respiratory Depth Normal Respiratory Pattern Regular Blood Pressure 113/83 Blood Pressure Mean 93 Pulse Oximetry 99 85 L Oxygen Delivery Method Nasal Cannula Nasal Cannula Oxygen Flow Rate 2 2 Fraction of Inspired Oxygen Sepsis Recent Fever Within 48 Hours No Sepsis New/Unexplained Change in Mental Status N/A Sepsis Action Taken by Nursing No Action Required Oxygen Flow Rate - Titration 4 Pulse Oximetry Post Tiitration 96 11/27/24 01:30 11/27/24 02:49 11/27/24 04:00 Temperature Temperature Source Pulse Rate 69 65 69 Respiratory Rate 18 16 16 Respiratory Effort / Characteristics Respiratory Depth Respiratory Pattern Blood Pressure 167/75 H 143/65 H 146/68 H Blood Pressure Mean 105 91 94 Pulse Oximetry 94 95 94 Oxygen Delivery Method Nasal Cannula Nasal Cannula Nasal Cannula Oxygen Flow Rate 4 4 Fraction of Inspired Oxygen 4 Sepsis Recent Fever Within 48 Hours Sepsis New/Unexplained Change in Mental Status Sepsis Action Taken by Nursing Oxygen Flow Rate - Titration Pulse Oximetry Post Tiitration 11/27/24 04:30 11/27/24 05:00 11/27/24 06:33 Temperature Temperature Source Pulse Rate 60 62 60 Respiratory Rate 18 16 Respiratory Effort / Characteristics Respiratory Depth Respiratory Pattern Blood Pressure 124/64 146/69 H Blood Pressure Mean 94 94 Pulse Oximetry 96 93 Oxygen Delivery Method Nasal Cannula Oxygen Flow Rate 4 Fraction of Inspired Oxygen Sepsis Recent Fever Within 48 Hours Sepsis New/Unexplained Change in Mental Status Sepsis Action Taken by Nursing Oxygen Flow Rate - Titration Pulse Oximetry Post Tiitration Laboratory Data 11/27/24 00:50 11/27/24 00:50 Lab Results 11/27/24 11/27/24 Range/Units 00:50 01:05 WBC 11.29 H (4.8-10.8) K/ul RBC 4.36 (4.20-5.40) M/uL Hgb 12.5 (12.0-16.0) g/dl POC Hgb 13.3 (12.0-16.0) g/dl Hct 37.7 (37.0-47.0) % POC Hct 39 (37-47) % MCV 86.5 (80.0-100.0) fL MCH 28.7 (25.0-34.0) pg MCHC 33.2 (32.0-36.0) g/dL RDW Std Deviation 47.5 H (36.4-46.3) fL RDW Coeff of Lakshmi 15.0 H (11.5-14.5) % Plt Count 230 (130-400) K/uL MPV 10.6 (9.4-12.4) fL Immature Gran % (Auto) 0.6 % Neut % (Auto) 70.6 % Lymph % (Auto) 17.6 % Mcclain % (Auto) 8.8 % Eos % (Auto) 2.0 % Baso % (Auto) 0.4 % Neut # (Auto) 7.97 H (1.40-6.50) K/uL Lymph # (Auto) 1.99 (1.20-3.40) K/uL Mcclain # (Auto) 0.99 H (0.11-0.59) K/uL Eos # (Auto) 0.23 (0.00-0.50) K/uL Baso # (Auto) 0.04 (0.00-0.20) K/uL Immature Gran # (Auto) 0.07 (0.01-0.20) K/uL POC Sodium 140 (135-144) mmol/L Sodium 139 (136-145) mmol/L POC Potassium 4.8 (3.3-5.0) mmol/L Potassium 4.5 (3.5-5.1) mmol/L POC Chloride 107 (101-112) mmol/L Chloride 107 (98-107) mmol/L Carbon Dioxide 25 (21-32) mmol/L POC Total CO2 24 (24-31) mmol/L Anion Gap 7 (3-11) POC Anion Gap 15.0 L (16-25) mmol/L POC BUN 38 H (7-18) mg/dl BUN 31 H (6-23) mg/dl Creatinine 1.29 H (0.6-1.2) mg/dl POC Creatinine 1.3 (0.6-1.3) mg/dl Est Cr Clr Drug Dosing 27.0 ml/min eGFR 40.17 BUN/Creatinine Ratio 24.0 H (10-20) Glucose 107 H (70-99(Fasting)) mg/dl POC Glucose (other) 108 H (70-99) mg/dl Calcium 9.7 (8.6-10.3) mg/dl POC Ioniz Calcium Marivel 1.21 (1.12-1.32) mmol/l Total Bilirubin 0.5 (0.2-1.0) mg/dl AST 22 (13-39) U/L ALT 16 (7-52) U/L Alkaline Phosphatase 92 (34-104) U/L Total Protein 7.2 (6.0-8.3) gm/dl Albumin 3.9 (3.4-5.0) gm/dl Globulin 3.3 (2.5-4.0) gm/dl Albumin/Globulin Ratio 1.2 (0.9-2) Administered Medications Discontinued Medications Hydromorphone HCl (Hydromorphone Inj 0.5 Mg/0.5 Ml Syr) 0.5 mg IV NOW STA Stop: 11/27/24 00:51 Last Admin: 11/27/24 00:58 Dose: 0.5 mg Documented By: LUIZ Hydromorphone HCl (Hydromorphone Inj 1 Mg/Ml Syringe) 1 mg IV NOW STA Stop: 11/27/24 01:20 Last Admin: 11/27/24 01:22 Dose: 1 mg Documented By: LUIZ Acetaminophen (Ofirmev) 1,000 mg in 100 mls @ 400 mls/hr IV NOW STA Stop: 11/27/24 01:35 Last Infusion: 11/27/24 01:51 Dose: Infused Documented By: Admin: 11/27/24 01:35 Dose: 400 mls/hr Documented By: LUIZ Sodium Chloride (Nss) 500 mls @ 999 mls/hr IV .Q31M ONE Stop: 11/27/24 02:36 Last Infusion: 11/27/24 03:21 Dose: Infused Documented By: Admin: 11/27/24 02:47 Dose: 999 mls/hr Documented By: LUIZ Ondansetron HCl (Ondansetron Inj 2 Mg/Ml 2 Ml Vial) 4 mg IV NOW STA Stop: 11/27/24 00:51 Last Admin: 11/27/24 00:58 Dose: 4 mg Documented By: LUIZ Discharge Plan Visit Data Chief Complaint: Back Injury/Pain Stated Complaint: fall last week, worsening back pain ED Provider: Brielle Barrios Discharge Problem: Back muscle spasm, JUVENAL (acute kidney injury), T12 compression fracture Condition: Fair Forms Stand Alone Forms: My [facility] Prescriptions Prescriptions: No Action buspirone [BuSpar] 5 mg Tablet 5 mg PO BID PRN (Reason: Anxiety) atorvastatin [Lipitor] 80 mg Tablet 80 mg PO DAILY metoprolol succinate 50 mg Tablet Extended Release 24 Hr 50 mg PO DAILY amlodipine 2.5 mg Tablet 2.5 mg PO DAILY clopidogrel [Plavix] 75 mg Tablet 75 mg PO DAILY omeprazole [Prilosec] 40 mg Capsule,Delayed Release(Dr/Ec) 40 mg PO DAILY famotidine 20 mg Tablet 20 mg PO DAILY levothyroxine 50 mcg Tablet 50 mcg PO DAILY paroxetine HCl 20 mg Tablet 20 mg PO DAILY hydrochlorothiazide 25 mg Tablet 25 mg PO UD Rx Instructions: three times a week fluticasone propionate [Flonase] 50 mcg/actuation [place],Suspension 1 spray INTRANASAL DAILY Rx Instructions: administer into each nostril levalbuterol tartrate [Xopenex HFA] 45 mcg/actuation Hfa Aerosol Inhaler 2 inh INHALATION Q4H PRN (Reason: Shortness Of Breath Or Wheezing) umeclidinium-vilanterol [Anoro Ellipta] 62.5-25 mcg/actuation Blister With Device 1 inh INHALATION DAILY (DME) Oxygen Home Liters Per Minute Referrals Referrals: Heather Harper MD [Primary Care Provider] -
[2024-11-27 01:13] LABS: Hematocrit (blood only) 37.7 % (37.0-47.0); Hemoglobin 12.5 g/dl (12.0-16.0); Immature Granulocytes # (auto) 0.07 K/uL (0.01-0.20); Immature Granulocytes % (auto) 0.6 %; Mean Corpuscular Hemoglobin 28.7 pg (25.0-34.0); Mean Corpuscular Volume 86.5 fL (80.0-100.0); Platelet Count 230 K/uL (130-400); RDW Standard Deviation 47.5 fL (36.4-46.3); Red Blood Count 4.36 M/uL (4.20-5.40); White Blood Count 11.29 K/ul (4.8-10.8)
[2024-11-27] MEDS: HYDROmorphone INJ 1 MG/ML SYRINGE IV STA (01:22)
[2024-11-27 01:29] LABS: Alanine Aminotransferase 16.0 U/L (7-52); Albumin Globulin Ratio 1.2 (0.9-2); Alkaline Phosphatase 92.0 U/L (34-104); Anion Gap 7.0 (3-11); Bilirubin,Total 0.5 mg/dl (0.2-1.0); Blood Urea Nitrogen 31.0 mg/dl (6-23); Calcium 9.7 mg/dl (8.6-10.3); Carbon Dioxide 25.0 mmol/L (21-32); Chloride 107.0 mmol/L (98-107); Creatinine Clr Calc Pharmacy 27.0 ml/min; Globulin 3.3 gm/dl (2.5-4.0); Glucose 107.0 mg/dl (70-99(Fasting)); Potassium 4.5 mmol/L (3.5-5.1); Sodium 139.0 mmol/L (136-145); Total Protein 7.2 gm/dl (6.0-8.3)
[2024-11-27] MEDS: ACETAMINOPHEN 1,000 MG/100 ML VIAL IV STA (01:35)
[2024-11-27] MEDS: SODIUM CHLORIDE 0.9% 500 ML IV ONE (02:47)
[2024-11-27] MEDS ORDERED: POLYETHYLENE (MIRALAX) 17 GM PACK PO PRN (07:14)
[2024-11-27] MEDS ORDERED: LEVALBUTEROL TARTRATE 15 GM HFA.AER.AD INH PRN (07:14)
--- NOTE | 2024-11-27 07:46 | History & Physical Report ---
Date of Service November 27, 2024 Assessment & Plan (1) T12 compression fracture: Plan: 89-year-old female with past medical history significant for hypothyroidism, dyslipidemia, secondary hyperparathyroidism, bronchiectasis without complication, diaphragmatic hernia, hypertension, sick sinus syndrome status post pacemaker, CAD, CKD stage III, osteoporosis, degenerative disease, essential tremor, mild cognitive impairment with memory loss, depression with an xiety who lives alone comes because of fall and severe back pain. Patient was in the ER on 11/22/24 with a fall from the bed, striking the left side of her body on the ground. She cut her eyelid with her glasses. Eyelid was sutured in the ER. Imaging studies showed T12 compression fracture. Patient was stable and was discharged home to follow as outpatient. Advised for left eyelid suture removal in 7 days. Patient was having persistent back pain since the fall. But last night was having worsening spasms and came to the ER. Any movement is exacerbating her pain. In the ER pain medication was given and plan for discharge but the pain came back and we were called for admission. Patient is very hard of hearing. Somewhat poor historian. And somewhat drowsy. Can tell her name.. Knows that she is in hospital. Can tell current month. Denies any headache. Denies any blurred vision. No runny nose or sore throat. No cough. Afebrile. Denies any chest pain or shortness of breath. No abdominal pain. Normal bowel and bladder movements. Ambulating without support. States she is ambulating very slowly because of pain. Still having significant spasms and pain in the back. Hemodynamics are okay. T12 compression fracture Muscle spasms Ambulate dysfunction Status post fall Pain control with oxycodone as needed and IV Tylenol prn . And Flexeril as needed [facility] consult PT OT when able to JUVENAL on CKD stage III baseline creatinine around 1 Presented creatinine 1.2 Avoid nephrotoxic agents Fluids Follow repeat labs Sick sinus syndrome Status post pacemaker History of CAD Moderate mid LAD obstruction on coronary CT in 2007 Abnormal nuclear stress testing in April 2021 patient requested medical management On metoprolol succinate and Plavix and statin GERD Will change omeprazole to Protonix as patient is on Plavix Continue famotidine History of CVA On statin and Plavix Hypertension On amlodipine, hydrochlorothiazide and metoprolol succinate we will monitor Hypothyroidism On Synthyroid Hyperlipidemia On statin Bronchiectasis Moderate persistent asthma On home oxygen Continue home inhalers Depression with anxiety On Paxil and BuSpar as needed Left eyelid suture removal in 2-3 days DVT prophylaxis Heparin subcu Disposition Medical floor Full code. Med rec done from [facility]. Please verify when patient is more awake. Admission and Anticipated Discharge Date Admission Date: November 27, 2024 History of Present Illness Chief Complaint: Status post fall, T12 compression fracture, severe back pain and ambulatory dysfunction Primary Care Provider: Heather Harper MD 89-year-old female with past medical history significant for hypothyroidism, dyslipidemia, secondary hyperparathyroidism, bronchiectasis without complication, diaphragmatic hernia, hypertension, sick sinus syndrome status post pacemaker, CAD, CKD stage III, osteoporosis, degenerative disease, essential tremor, mild cognitive impairment with memory loss, depression with anxiety who lives alone comes because of fall and severe back pain. Patient was in the ER on 11/22/24 with a fall from the bed, striking the left side of her grant dy on the ground. She cut her eyelid with her glasses. Eyelid was sutured in the ER. Imaging studies showed T12 compression fracture. Patient was stable and was discharged home to follow as outpatient. Advised for left eyelid suture removal in 7 days. Patient was having persistent back pain since the fall. But last night was having worsening spasms and came to the ER. Any movement is exacerbating her pain. In the ER pain medication was given and plan for discharge but the pain came back and we were called for admission. Patient is very hard of hearing. Somewhat poor historian. And somewhat drowsy. Can tell her name.. Knows that she is in hospital. Can tell current month. Denies any headache. Denies any blurred vision. No runny nose or sore throat. No cough. Afebrile. Denies any chest pain or shortness of breath. No abdominal pain. Normal bowel and bladder movements. Ambulating without support. States she is ambulating very slowly because of pain. Still having significant spasms and pain in the back. Hemodynamics are okay. Past medical history. As mentioned above. Past surgical history. Right breast biopsy. Colonoscopy. Colonoscopy with biopsy. Repair of bilateral brow ptosis. Bilateral blepharoplasty upper eyelid. Social history. Lives alone. No smoking. Alcohol occasional. No drug use. Family history. Mother arthritis. Asthma. Hypertension. Father had skin cancer. Diabetes. Heart disorder. Hypertension. Family tremor. Brother had Hodgkin's lymphoma. Maternal aunt had breast cancer. Paternal aunt had breast cancer. Medication : As per epic. Can you verify with patient later as patient currently drowsy. Allergies Allergy/AdvReac Type Severity Reaction Status Date / Time Iodinated Contrast Media Allergy Intermediate IV dye Verified 09/16/24 12:15 -hives trolamine salicylate Allergy Mild Rash Verified 09/16/24 12:15 [From Myoflex] NSAIDS (Non-Steroidal Allergy Unknown UNKNOWN Verified 09/16/24 12:15 Anti-Inflamma primidone Allergy Unknown UNKNOWN Verified 09/16/24 12:15 sertraline Allergy Unknown UNKNOWN Verified 09/16/24 12:15 Sulfa (Sulfonamide Allergy Unknown "SULFA" Verified 09/16/24 12:15 Antibiotics) ALLERGY Home Medications Medication Instructions Recorded Confirmed Type Oxygen Home 11/27/24 11/27/24 History amlodipine 2.5 mg tablet 2.5 mg PO DAILY 11/27/24 11/27/24 History atorvastatin 80 mg tablet (Lipitor) 80 mg PO DAILY 11/27/24 11/27/24 History buspirone 5 mg tablet 5 mg PO BID PRN Anxiety 11/27/24 11/27/24 History clopidogrel 75 mg tablet (Plavix) 75 mg PO DAILY 11/27/24 11/27/24 History famotidine 20 mg tablet 20 mg PO DAILY 11/27/24 11/27/24 History fluticasone propionate 50 1 spray intranasal DAILY 11/27/24 11/27/24 History mcg/actuation nasal spray,suspension hydrochlorothiazide 25 mg tablet 25 mg PO UD 11/27/24 11/27/24 History levalbuterol tartrate 45 2 inh inhalation Q4H PRN Shortness 11/27/24 11/27/24 History mcg/actuation aerosol inhaler Of Breath Or Wheezing (Xopenex HFA) levothyroxine 50 mcg tablet 50 mcg PO DAILY 11/27/24 11/27/24 History metoprolol succinate 50 mg 50 mg PO DAILY 11/27/24 11/27/24 History tablet,extended release 24 hr omeprazole 40 mg capsule,delayed 40 mg PO DAILY 11/27/24 11/27/24 History release paroxetine HCl 20 mg tablet 20 mg PO DAILY 11/27/24 11/27/24 History umeclidinium 62.5 mcg-vilanterol 1 inh inhalation DAILY 11/27/24 11/27/24 History 25 mcg/actuation powdr for inhalation (Anoro Ellipta) Past Med/Surg History Problem List (Updated 11/27/24 @ 06:41 by Brielle Barrios DO) T12 compression fracture (Acute) JUVENAL (acute kidney injury) (Acute) Back muscle spasm (Acute) T12 compression fracture (Acute) Hematoma of neck (Acute) Eyelid laceration, left (Acute) Fall (Acute) COVID-19 (Acute) Abnormal chest CT History of recent stroke (Acute) CVA (cerebral vascular accident) JUVENAL (acute kidney injury) DVT prophylaxis Acute confusion (Acute) Facial paresthesia (Acute) Hand paresthesia (Acute) Acute loss of vision (Acute) Arterial branch occlusion of retina (Acute) Chronic rhinitis Sensorineural hearing loss of both ears BPPV (benign paroxysmal positional vertigo) Imbalance Dysphonia LPRD (laryngopharyngeal reflux disease) Systolic murmur Cough Dyspnea on exertion Hip pain, left Chronic rhinitis Hypothyroidism Depression Asthma CKD (chronic kidney disease), stage III Hypertension (Acute) Medical History Dysphagia Abnormal ECG Elevated troponin Pneumonia Microscopic hematuria Shoulder pain, left Anxiety and depression Elevated troponin Chest discomfort Pneumonia Weakness of voice Dyspnea on exertion Chronic cough Bronchiectasis Vitamin D deficiency TIA (transient ischemic attack) Changes in vision Encounter for pre-operative examination GI bleed 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 Pacemaker SSS (sick sinus syndrome) CAD (coronary artery disease) Essential tremor Abnormal urinalysis Acute anemia Multifocal pneumonia Weakness Anemia Hypoxic Bronchiectasis with (acute) exacerbation SOB (shortness of breath) Weakness Hypercholesterolemia Osteoporosis Secondary hyperparathyroidism GERD (gastroesophageal reflux disease) Heart block Vitamin D deficiency Surgical History Hx of blepharoplasty Hx of repair of rotator cuff Hx of tonsillectomy History of breast lump removal Family History Father Hypertension Heart disease Mother Hypertension Asthma Other Cancer Diabetes Kidney disease Lung disease No family history of adverse response to anesthesia No family history of bleeding disorder Social History Smoking Status: Never smoker Second Hand Exposure: No; Do You Dip or Chew Tobacco: No; Hx Alcohol Use: Yes Alcohol type: wine Alcohol Intake Frequency Comment: occasional Hx Substance Use: No Preferred Language: Sierra Leonean Communication Ability: Effective Taping Supervisor Required: No Beliefs That Will Affect Care: None marital status: / Current Living Situation: Alone Current Living Situation Comment: Apartment ([facility]) current occupational status: retired Feels Safe at Home: Yes Assistive Devices: Oxygen - at Night Review of Systems Review of Systems: All systems reviewed & are unremarkable except as noted in HPI & below Physical Exam Physical Exam: General- Not in acute distress. Drowsy Head- Bruise seen on left side of face Eyes- PERRL. Bruise seen on left eye region ENT- dry Neck- supple, no JVD. Lungs- clear to auscultation no wheezing or crackles Heart- regular rhythm; no murmur, no gallop. Abdomen- normal bowel sounds, soft, nontender, no distension Extremities- no pretibial edema, no erythema seen Neuro- somewhat drowsy oriented x 3; PERRL, no facial palsy; no dysarthria; moves extremities Skin- Bruise seen on left side of body. Musculoskeletal SLR test positive on right side Results & Data Results & Data Vital Signs (Past 12 Hours) Vital Signs Temp Pulse Resp BP Pulse Ox O2 Del Method O2 Flow Rate 11/27/24 07:15 60 11/27/24 06:33 60 16 146/69 H 93 Nasal Cannula 4 11/27/24 05:00 62 18 124/64 96 11/27/24 04:30 60 11/27/24 04:00 69 16 146/68 H 94 Nasal Cannula 4 11/27/24 02:49 65 16 143/65 H 95 Nasal Cannula 4 11/27/24 01:30 69 18 167/75 H 94 Nasal Cannula 11/27/24 01:27 85 L Nasal Cannula 2 11/27/24 00:47 68 11/27/24 00:43 36.6 C 68 18 113/83 99 Nasal Cannula 2 FiO2 11/27/24 07:15 11/27/24 06:33 11/27/24 05:00 11/27/24 04:30 11/27/24 04:00 11/27/24 02:49 11/27/24 01:30 4 11/27/24 01:27 11/27/24 00:47 11/27/24 00:43 Diagnostic Findings Laboratory Results WBC 11.29 K/ul (4.8-10.8) H 11/27/24 00:50 RBC 4.36 M/uL (4.20-5.40) 11/27/24 00:50 Hgb 12.5 g/dl (12.0-16.0) 11/27/24 00:50 POC Hgb 13.3 g/dl (12.0-16.0) 11/27/24 01:05 Hct 37.7 % (37.0-47.0) 11/27/24 00:50 POC Hct 39 % (37-47) 11/27/24 01:05 MCV 86.5 fL (80.0-100.0) 11/27/24 00:50 MCH 28.7 pg (25.0-34.0) 11/27/24 00:50 MCHC 33.2 g/dL (32.0-36.0) 11/27/24 00:50 RDW Std Deviation 47.5 fL (36.4-46.3) H 11/27/24 00:50 RDW Coeff of Lakshmi 15.0 % (11.5-14.5) H 11/27/24 00:50 Plt Count 230 K/uL (130-400) 11/27/24 00:50 MPV 10.6 fL (9.4-12.4) 11/27/24 00:50 Immature Gran % (Auto) 0.6 % 11/27/24 00:50 Neut % (Auto) 70.6 % 11/27/24 00:50 Lymph % (Auto) 17.6 % 11/27/24 00:50 [place] % (Auto) 8.8 % 11/27/24 00:50 Eos % (Auto) 2.0 % 11/27/24 00:50 Baso % (Auto) 0.4 % 11/27/24 00:50 Neut # (Auto) 7.97 K/uL (1.40-6.50) H 11/27/24 00:50 Lymph # (Auto) 1.99 K/uL (1.20-3.40) 11/27/24 00:50 [place] # (Auto) 0.99 K/uL (0.11-0.59) H 11/27/24 00:50 Eos # (Auto) 0.23 K/uL (0.00-0.50) 11/27/24 00:50 Baso # (Auto) 0.04 K/uL (0.00-0.20) 11/27/24 00:50 Immature Gran # (Auto) 0.07 K/uL (0.01-0.20) 11/27/24 00:50 POC Sodium 140 mmol/L (135-144) 11/27/24 01:05 Sodium 139 mmol/L (136-145) 11/27/24 00:50 POC Potassium 4.8 mmol/L (3.3-5.0) 11/27/24 01:05 Potassium 4.5 mmol/L (3.5-5.1) 11/27/24 00:50 POC Chloride 107 mmol/L (101-112) 11/27/24 01:05 Chloride 107 mmol/L (98-107) 11/27/24 00:50 Carbon Dioxide 25 mmol/L (21-32) 11/27/24 00:50 POC Total CO2 24 mmol/L (24-31) 11/27/24 01:05 Anion Gap 7 (3-11) 11/27/24 00:50 POC Anion Gap 15.0 mmol/L (16-25) L 11/27/24 01:05 POC BUN 38 mg/dl (7-18) H 11/27/24 01:05 BUN 31 mg/dl (6-23) H 11/27/24 00:50 Creatinine 1.29 mg/dl (0.6-1.2) H 11/27/24 00:50 POC Creatinine 1.3 mg/dl (0.6-1.3) 11/27/24 01:05 Est Cr Clr Drug Dosing 27.0 ml/min 11/27/24 00:50 eGFR 40.17 11/27/24 00:50 BUN/Creatinine Ratio 24.0 (10-20) H 11/27/24 00:50 Glucose 107 mg/dl (70-99(Fasting)) H 11/27/24 00:50 POC Glucose (other) 108 mg/dl (70-99) H 11/27/24 01:05 Calcium 9.7 mg/dl (8.6-10.3) 11/27/24 00:50 POC Ioniz Calcium Marivel 1.21 mmol/l (1.12-1.32) 11/27/24 01:05 Total Bilirubin 0.5 mg/dl (0.2-1.0) 11/27/24 00:50 AST 22 U/L (13-39) 11/27/24 00:50 ALT 16 U/L (7-52) 11/27/24 00:50 Alkaline Phosphatase 92 U/L (34-104) 11/27/24 00:50 Total Protein 7.2 gm/dl (6.0-8.3) 11/27/24 00:50 Albumin 3.9 gm/dl (3.4-5.0) 11/27/24 00:50 Globulin 3.3 gm/dl (2.5-4.0) 11/27/24 00:50 Albumin/Globulin Ratio 1.2 (0.9-2) 11/27/24 00:50 Code Status & VTE Plan VTE Prophylaxis Plan VTE Prophylaxis will be ordered: Yes
--- NOTE | 2024-11-27 08:47 | CT Scan Report ---
CT OF THE THORACIC SPINE CLINICAL HISTORY: fracture COMPARISON STUDY: Conventional x-ray study dated 10/24/2012 TECHNIQUE: Helical axial images of the thoracic spine were obtained. Sagittal and coronal reconstru ctions were viewed. Automated exposure control was utilized for the study. A dose lowering techniqu e was utilized adhering to the principles of ALARA. FINDINGS: There are multilevel degenerative changes present. There are no suspicious lytic or blastic lesions. There is acute/subacute T12 compression fracture demonstrating 50% loss in height. The posterior [place] ents appear intact. There is a very minimal retropulsion without evidence of significant canal compro mise. There is mild paravertebral soft tissue edema. There are no subluxations. No additional fractures are visualized. There is a 12 mm groundglass left apical pulmonary nodule. There is mild septal thickening suggesting an element of mild interstitial edema. There is lower lobe mucus plugging. There are trace pleural e ffusions. IMPRESSION: 1. Acute/subacute T12 compression fracture demonstrating 50% loss in height. There is very minimal re tropulsion without evidence of significant bony canal compromise. 2. Within the lungs, there is mild septal thickening, lower lobe mucus plugging, trace pleural effusi ons. In addition there is a 12 mm groundglass left apical pulmonary nodule. ACT 112: Negative or not required by law. Electronically signed by: Bob Bynum M.D. 11/27/2024 8:46 AM
[2024-11-27] MEDS: CLOPIDOGREL BISULFATE 75 MG TAB PO SCH (09:20)
[2024-11-27] MEDS: UMECLIDINIUM/VILANTEROL 62.5/25MCG 7 PUFFS/INHALER INH SCH (09:20)
[2024-11-27] MEDS: FLUTICASONE PROPIONATE NA SPR 16 GM BTL SCH (09:20)
[2024-11-27] MEDS: LACTATED RINGER'S 1,000 ML IV SCH (09:20)
[2024-11-27] MEDS: busPIRone 5 MG TAB PO PRN (09:20)
[2024-11-27] MEDS: FAMOTIDINE 20 MG TAB PO SCH (09:21)
[2024-11-27] MEDS: ATORVASTATIN 40 MG TAB PO SCH (09:21)
[2024-11-27] MEDS: METOPROLOL SUCC 50MG EXT REL TAB PO SCH (09:22)
--- NOTE | 2024-11-27 10:22 | Consultation ---
Date of Consultation November 27, 2024 Assessment & Plan (1) T12 compression fracture: Teresa is an 89-year-old female with an acute T12 compression fracture status post fall on November 22, 2024. Dr. Cooney has reviewed imaging and treatment plan. Treatment is conservative. I have ordered a TLSO brace to be worn with ambulation and activity. May remove with bedrest or in a seated position. No lifting over 5 pounds. Ambulate ad simon. Continue with pain control. Orthopedically stable. History of Present Illness Reason for Consultation: T12 compression fracture status post fall Attending Physician: Jovany Martinez MD History of Present Illness Is a very pleasant 89-year-old female who is a resident at the [facility] assisted living facility and sustained a fall on November 22, 2024. She states she hit her nightstand with her head mostly her left eye which shattered her eyeglasses and caused a laceration on her eyelid. She was treated in the emergency room that evening and then discharged back to the [facility]. Pain progressively worsened over a couple days and then she presented back to the ER last evening with subsequent admission. She has only back pain. She has multiple bruises from her fall. Typically she states she ambulates independently. Denies any radicular leg pain. Allergies Allergy/AdvReac Type Severity Reaction Status Date / Time Iodinated Contrast Media Allergy Intermediate IV dye Verified 09/16/24 12:15 -hives trolamine salicylate Allergy Mild Rash Verified 09/16/24 12:15 [From Myoflex] NSAIDS (Non-Steroidal Allergy Unknown UNKNOWN Verified 09/16/24 12:15 Anti-Inflamma primidone Allergy Unknown UNKNOWN Verified 09/16/24 12:15 sertraline Allergy Unknown UNKNOWN Verified 09/16/24 12:15 Sulfa (Sulfonamide Allergy Unknown "SULFA" Verified 09/16/24 12:15 Antibiotics) ALLERGY Home Medications Medication Instructions Recorded Confirmed Type Oxygen Home 11/27/24 11/27/24 History amlodipine 2.5 mg tablet 2.5 mg PO DAILY 11/27/24 11/27/24 History atorvastatin 80 mg tablet (Lipitor) 80 mg PO DAILY 11/27/24 11/27/24 History buspirone 5 mg tablet 5 mg PO BID PRN Anxiety 11/27/24 11/27/24 History clopidogrel 75 mg tablet (Plavix) 75 mg PO DAILY 11/27/24 11/27/24 History famotidine 20 mg tablet 20 mg PO DAILY 11/27/24 11/27/24 History fluticasone propionate 50 1 spray intranasal DAILY 11/27/24 11/27/24 History mcg/actuation nasal spray,suspension hydrochlorothiazide 25 mg tablet 25 mg PO UD 11/27/24 11/27/24 History levalbuterol tartrate 45 2 inh inhalation Q4H PRN Shortness 11/27/24 11/27/24 History mcg/actuation aerosol inhaler Of Breath Or Wheezing (Xopenex HFA) levothyroxine 50 mcg tablet 50 mcg PO DAILY 11/27/24 11/27/24 History metoprolol succinate 50 mg 50 mg PO DAILY 11/27/24 11/27/24 History tablet,extended release 24 hr omeprazole 40 mg capsule,delayed 40 mg PO DAILY 11/27/24 11/27/24 History release paroxetine HCl 20 mg tablet 20 mg PO DAILY 11/27/24 11/27/24 History umeclidinium 62.5 mcg-vilanterol 1 inh inhalation DAILY 11/27/24 11/27/24 History 25 mcg/actuation powdr for inhalation (Anoro Ellipta) Patient History Medical History Dysphagia Abnormal ECG Elevated troponin Pneumonia Microscopic hematuria Shoulder pain, left Anxiety and depression Elevated troponin Chest discomfort Pneumonia Weakness of voice Dyspnea on exertion Chronic cough Bronchiectasis Vitamin D deficiency TIA (transient ischemic attack) Changes in vision Encounter for pre-operative examination GI bleed 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 Pacemaker SSS (sick sinus syndrome) CAD (coronary artery disease) Essential tremor Abnormal urinalysis Acute anemia Multifocal pneumonia Weakness Anemia Hypoxic Bronchiectasis with (acute) exacerbation SOB (shortness of breath) Weakness Hypercholesterolemia Osteoporosis Secondary hyperparathyroidism GERD (gastroesophageal reflux disease) Heart block Vitamin D deficiency Surgical History Hx of blepharoplasty Hx of repair of rotator cuff Hx of tonsillectomy History of breast lump removal Family History Father Hypertension Heart disease Mother Hypertension Asthma Other Cancer Diabetes Kidney disease Lung disease No family history of adverse response to anesthesia No family history of bleeding disorder Social History Smoking Status: Unknown if ever smoked Second Hand Exposure: No; Do You Dip or Chew Tobacco: No; Hx Alcohol Use: No Hx Substance Use: No Preferred Language: Kosovan Communication Ability: Effective Biomedical Engineering Internship Required: No Beliefs That Will Affect Care: None marital status: / Current Living Situation: Family Current Living Situation Comment: Apartment ([facility]) current occupational status: retired Feels Safe at Home: Yes Assistive Devices: None Review of Systems Review of Systems: All systems reviewed & are unremarkable except as noted in HPI & below Physical Exam Physical Exam: She seen in the emergency room pod C10 She is alert and oriented x 3 She has significant ecchymotic bruising over her left eye, left side of her neck, older bruising on her right cheek and very large bruise over her left bicep She is nontender to portions of the midline thoracic and lumbar spine She has 5 of 5 strength bilateral lower extremities including EHL, dorsiflexion, plantarflexion, quadriceps and hamstrings Negative logrolling bilateral lower extremities Results & Data Vital Signs (Past 12 Hours) Vital Signs Temp Pulse Pulse Resp BP BP Pulse Ox 11/27/24 09:52 11/27/24 09:19 60 15 130/56 L 97 11/27/24 08:26 36.9 C 60 16 92 11/27/24 08:23 60 16 92 11/27/24 07:15 60 11/27/24 06:33 60 16 146/69 H 93 11/27/24 05:00 62 18 124/64 96 11/27/24 04:30 60 11/27/24 04:00 69 16 146/68 H 94 11/27/24 02:49 65 16 143/65 H 95 11/27/24 01:30 69 18 167/75 H 94 11/27/24 01:27 85 L 11/27/24 00:47 68 11/27/24 00:43 36.6 C 68 18 113/83 99 O2 Del Method O2 Flow Rate FiO2 11/27/24 09:52 Nasal Cannula 2 11/27/24 09:19 Nasal Cannula 2 11/27/24 08:26 Nasal Cannula 2 11/27/24 08:23 Nasal Cannula 2 11/27/24 07:15 11/27/24 06:33 Nasal Cannula 4 11/27/24 05:00 11/27/24 04:30 11/27/24 04:00 Nasal Cannula 4 11/27/24 02:49 Nasal Cannula 4 11/27/24 01:30 Nasal Cannula 4 11/27/24 01:27 Nasal Cannula 2 11/27/24 00:47 11/27/24 00:43 Nasal Cannula 2 Diagnostic Findings [place], [place] [phone] CT Scan Report Patient: BRANDON RANGEL Admit Date: 11/27/24 MR#: [id number] Address1: [address] Acct ID:[id number] Address2: [address] Date: 1935 [facility] Zip: [place] [address] Age: 89 Location: [facility] Sex: F Room/Bed: [place] [address]-8 Att Phy: Jovany Martinez MD Diagnosis: SEVERE BACK PAIN,AMBULATORY DYSFUNCTION Marixa Phy: Heather Harper MD Service Date: 11/27/24 Fam Phy: Interpreting Phy: Bob Bynum MDAdmit Phy: Dajuan Knott MD Ordering Phy: Rafal Cooney D.O. cc: ~ CT OF THE THORACIC SPINE CLINICAL HISTORY: fracture COMPARISON STUDY: Conventional x-ray study dated 10/24/2012 TECHNIQUE: Helical axial images of the thoracic spine were obtained. Sagittal and coronal reconstructions were viewed. Automated exposure control was utilized for the study. A dose lowering technique was utilized adhering to the principles of ALARA. FINDINGS: There are multilevel degenerative changes present. There are no suspicious lytic or blastic lesions. There is acute/subacute T12 compression fracture demonstrating 50% loss in height. The posterior elements appear intact. There is a very minimal retropulsion without evidence of significant canal compromise. There is mild paravertebral soft tissue edema. There are no subluxations. No additional fractures are visualized. There is a 12 mm groundglass left apical pulmonary nodule. There is mild septal thickening suggesting an element of mild interstitial edema. There is lower lobe mucus plugging. There are trace pleural effusions. IMPRESSION: 1. Acute/subacute T12 compression fracture demonstrating 50% loss in height. There is very minimal retropulsion without evidence of significant bony canal compromise. 2. Within the lungs, there is mild septal thickening, lower lobe mucus plugging, trace pleural effusions. In addition there is a 12 mm groundglass left apical pulmonary nodule. ACT 112: Negative or not required by law. Electronically signed by: Bob Bynum M.D. 11/27/2024 8:46 AM Dictated: 11/27/24 0835 Transcribed: 11/27/24 0835
[2024-11-27] MEDS: HEPARIN SOD 5,000 UNIT/0.5 ML VIAL SQ SCH (13:19)
[2024-11-27] MEDS: hydroCHLOROthiazide 25 MG TAB PO SCH (13:19)
[2024-11-27] MEDS: ACETAMINOPHEN 1,000 MG/100 ML VIAL IV PRN (21:23)
[2024-11-27] MEDS: CYCLOBENZAPRINE HCL 5 MG TAB PO PRN (23:45)
[2024-11-28 05:58] LABS: Hematocrit (blood only) 33.7 % (37.0-47.0); Hemoglobin 10.9 g/dl (12.0-16.0); Immature Granulocytes # (auto) 0.03 K/uL (0.01-0.20); Immature Granulocytes % (auto) 0.5 %; Mean Corpuscular Hemoglobin 29.1 pg (25.0-34.0); Mean Corpuscular Volume 89.9 fL (80.0-100.0); Platelet Count 182 K/uL (130-400); RDW Standard Deviation 48.8 fL (36.4-46.3); Red Blood Count 3.75 M/uL (4.20-5.40); White Blood Count 6.54 K/ul (4.8-10.8)
[2024-11-28] MEDS: LEVOTHYROXINE SODIUM 50 MCG TABLET PO SCH (06:11)
[2024-11-28 06:15] LABS: Anion Gap 4.0 (3-11); Blood Urea Nitrogen 24.0 mg/dl (6-23); Calcium 8.9 mg/dl (8.6-10.3); Carbon Dioxide 28.0 mmol/L (21-32); Chloride 107.0 mmol/L (98-107); Creatinine Clr Calc Pharmacy 31.1 ml/min; Glucose 100.0 mg/dl (70-99(Fasting)); Magnesium 2.0 mg/dl (1.7-2.4); Potassium 4.0 mmol/L (3.5-5.1); Sodium 139.0 mmol/L (136-145)
--- NOTE | 2024-11-28 11:41 | Hospitalist Progress Note ---
Date of Service November 28, 2024 Assessment & Plan (1) T12 compression fracture: Plan: 89-year-old female with past medical history significant for hypothyroidism, dyslipidemia, secondary hyperparathyroidism, bronchiectasis without complication, diaphragmatic hernia, hypertension, sick sinus syndrome status post pacemaker, CAD, CKD stage III, osteoporosis, degenerative disease, essential tremor, mild cognitive impairment with memory loss, depression with an xiety who lives alone comes because of fall and severe back pain. Patient was in the ER on 11/22/24 with a fall from the bed, striking the left side of her body on the ground. She cut her eyelid with her glasses. Eyelid was sutured in the ER. Imaging studies showed T12 compression fracture. Patient was stable and was discharged home to follow as outpatient. Advised for left eyelid suture removal in 7 days. Patient was having persistent back pain since the fall. But last night was having worsening spasms and came to the ER. Any movement is exacerbating her pain. In the ER pain medication was given and plan for discharge but the pain came back and we were called for admission. Patient is very hard of hearing. Somewhat poor historian. And somewhat drowsy. Can tell her name.. Knows that she is in hospital. Can tell current month. Denies any headache. Denies any blurred vision. No runny nose or sore throat. No cough. Afebrile. Denies any chest pain or shortness of breath. No abdominal pain. Normal bowel and bladder movements. Ambulating without support. States she is ambulating very slowly because of pain. Still having significant spasms and pain in the back. Hemodynamics are okay. T12 compression fracture Muscle spasms Ambulate dysfunction Status post fall Pain control with oxycodone as needed and IV Tylenol prn . And Flexeril as needed [facility] consult PT OT when able to 11/28 Evaluated by orthopedic spine service, surgery not recommended at this point, brace recommended Patient still having severe back pain today Tylenol 1 g 3 times daily ordered, continue oxycodone warm compress PT OT eval If pain continues to worsen, may consider trial of prednisone and as needed Dilaudid JUVENAL on CKD stage III baseline creatinine around 1 Presented creatinine 1.2 Avoid nephrotoxic agents Fluids Follow repeat labs 11/28 crea now 1.1 Sick sinus syndrome Status post pacemaker History of CAD Moderate mid LAD obstruction on coronary CT in 2007 Abnormal nuclear stress testing in April 2021 patient requested medical management On metoprolol succinate and Plavix and statin GERD Will change omeprazole to Protonix as patient is on Plavix Continue famotidine History of CVA On statin and Plavix Hypertension On amlodipine, hydrochlorothiazide and metoprolol succinate we will monitor Hypothyroidism On Synthyroid Hyperlipidemia On statin Bronchiectasis Moderate persistent asthma On home oxygen Continue home inhalers Depression with anxiety On Paxil and BuSpar as needed Left eyelid suture removal in 2-3 days DVT prophylaxis Heparin subcu Disposition Medical floor Full code. Med rec done from [facility]. Please verify when patient is more awake. Admission and Anticipated Discharge Date Admission Date: November 27, 2024 Subjective seen resting in bed, uncomfortable due to back pain States that she is still having severe back pain today, but no leg weakness or numbness No fevers or chills No other new symptoms Review of Systems Review of Systems: all noted and negative except for above Physical Exam Physical Exam: General- oriented x 3, not in distress, speaks in sentences with no effort or accessory muscle use Eyes- anicteric Neck- no JVD Lungs- clear breath sounds bilaterally, no rales/wheezes Heart- normal rate, regular rhythm; no murmurs Abdomen- normal bowel sounds, nondistended, soft, nontender Extremities- no pretibial edema, no calf tenderness Neuro- alert, oriented x 3; no gross focal neurologic deficits Skin- warm & dry Results & Data Results & Data Vital Signs (Past 12 Hours) Vital Signs Temp Resp BP Pulse Ox O2 Del Method O2 Flow Rate 11/28/24 07:59 Nasal Cannula 4 11/28/24 07:01 36.5 C 17 137/61 97 Nasal Cannula 2 all noted and reviewed including below
[2024-11-28] MEDS: MoRPHine SULFATE 4 MG/ML 1 ML CARP\\VIAL IV PRN (16:27)
[2024-11-29] MEDS ORDERED: MAGNESIUM HYDROXIDE SUSP 30 ML UDC PO PRN (13:49)
[2024-11-29] MEDS: POLYETHYLENE (MIRALAX) 17 GM PACK PO SCH (14:19)
--- NOTE | 2024-11-29 15:52 | Hospitalist Progress Note ---
Date of Service November 29, 2024 Assessment & Plan (1) T12 compression fracture: Plan: 89-year-old female with past medical history significant for hypothyroidism, dyslipidemia, secondary hyperparathyroidism, bronchiectasis without complication, diaphragmatic hernia, hypertension, sick sinus syndrome status post pacemaker, CAD, CKD stage III, osteoporosis, degenerative disease, essential tremor, mild cognitive impairment with memory loss, depression with an xiety who lives alone comes because of fall and severe back pain. Patient was in the ER on 11/22/24 with a fall from the bed, striking the left side of her body on the ground. She cut her eyelid with her glasses. Eyelid was sutured in the ER. Imaging studies showed T12 compression fracture. Patient was stable and was discharged home to follow as outpatient. Advised for left eyelid suture removal in 7 days. Patient was having persistent back pain since the fall. But last night was having worsening spasms and came to the ER. Any movement is exacerbating her pain. In the ER pain medication was given and plan for discharge but the pain came back and we were called for admission. Patient is very hard of hearing. Somewhat poor historian. And somewhat drowsy. Can tell her name.. Knows that she is in hospital. Can tell current month. Denies any headache. Denies any blurred vision. No runny nose or sore throat. No cough. Afebrile. Denies any chest pain or shortness of breath. No abdominal pain. Normal bowel and bladder movements. Ambulating without support. States she is ambulating very slowly because of pain. Still having significant spasms and pain in the back. Hemodynamics are okay. T12 compression fracture Muscle spasms Ambulate dysfunction Status post fall Pain control with oxycodone as needed and IV Tylenol prn . And Flexeril as needed [facility] consult PT OT when able to 11/28 Evaluated by orthopedic spine service, surgery not recommended at this point, brace recommended Patient still having severe back pain today Tylenol 1 g 3 times daily ordered, continue oxycodone warm compress PT OT eval If pain continues to worsen, may consider trial of prednisone and as needed Dilaudid 11/29 Continue pain control PT OT evaluation May need acute rehab/SNF JUVENAL on CKD stage III baseline creatinine around 1 Presented creatinine 1.2 Avoid nephrotoxic agents Fluids Follow repeat labs 11/28 crea now 1.1 Sick sinus syndrome Status post pacemaker History of CAD Moderate mid LAD obstruction on coronary CT in 2007 Abnormal nuclear stress testing in April 2021 patient requested medical management On metoprolol succinate and Plavix and statin GERD Will change omeprazole to Protonix as patient is on Plavix Continue famotidine History of CVA On statin and Plavix Hypertension On amlodipine, hydrochlorothiazide and metoprolol succinate we will monitor Hypothyroidism On Synthyroid Hyperlipidemia On statin Bronchiectasis Moderate persistent asthma On home oxygen Continue home inhalers Depression with anxiety On Paxil and BuSpar as needed Left eyelid suture removal in 2-3 days DVT prophylaxis Heparin subcu Disposition Medical floor Full code. Med rec done from [facility]. Please verify when patient is more awake. Admission and Anticipated Discharge Date Admission Date: November 27, 2024 Subjective seen resting in bed, not in distress Still having significant back pain but as needed pain meds helping No leg weakness or numbness No other new symptoms Review of Systems Review of Systems: all noted and negative except for above Physical Exam Physical Exam: General- oriented x 3, not in distress, speaks in sentences with no effort or accessory muscle use Eyes- anicteric positive bruising on the left side of the face, improving Neck- no JVD Lungs- clear breath sounds bilaterally, no rales/wheezes Heart- normal rate, regular rhythm; no murmurs Abdomen- normal bowel sounds, nondistended, soft, nontender Extremities- no pretibial edema, no calf tenderness Neuro- alert, oriented x 3; no gross focal neurologic deficits Skin- warm & dry Results & Data Results & Data Vital Signs (Past 12 Hours) Vital Signs Temp Pulse Resp BP Pulse Ox O2 Del Method 11/29/24 15:20 36.7 C 65 18 149/74 H 94 Room Air 11/29/24 11:59 36.9 C 60 18 156/70 H 94 Room Air 11/29/24 08:01 36.9 C 71 18 132/58 L 94 Nasal Cannula all noted and reviewed including below
--- NOTE | 2024-11-30 17:58 | Hospitalist Progress Note ---
Date of Service November 30, 2024 Assessment & Plan (1) T12 compression fracture: Plan: 89-year-old female with past medical history significant for hypothyroidism, dyslipidemia, secondary hyperparathyroidism, bronchiectasis without complication, diaphragmatic hernia, hypertension, sick sinus syndrome status post pacemaker, CAD, CKD stage III, osteoporosis, degenerative disease, essential tremor, mild cognitive impairment with memory loss, depression with an xiety who lives alone comes because of fall and severe back pain. Patient was in the ER on 11/22/24 with a fall from the bed, striking the left side of her body on the ground. She cut her eyelid with her glasses. Eyelid was sutured in the ER. Imaging studies showed T12 compression fracture. Patient was stable and was discharged home to follow as outpatient. Advised for left eyelid suture removal in 7 days. Patient was having persistent back pain since the fall. But last night was having worsening spasms and came to the ER. Any movement is exacerbating her pain. In the ER pain medication was given and plan for discharge but the pain came back and we were called for admission. Patient is very hard of hearing. Somewhat poor historian. And somewhat drowsy. Can tell her name.. Knows that she is in hospital. Can tell current month. Denies any headache. Denies any blurred vision. No runny nose or sore throat. No cough. Afebrile. Denies any chest pain or shortness of breath. No abdominal pain. Normal bowel and bladder movements. Ambulating without support. States she is ambulating very slowly because of pain. Still having significant spasms and pain in the back. Hemodynamics are okay. T12 compression fracture Muscle spasms Ambulate dysfunction Status post fall Pain control with oxycodone as needed and IV Tylenol prn . And Flexeril as needed [facility] consult PT OT when able to 11/28 Evaluated by orthopedic spine service, surgery not recommended at this point, brace recommended Patient still having severe back pain today Tylenol 1 g 3 times daily ordered, continue oxycodone warm compress PT OT eval If pain continues to worsen, may consider trial of prednisone and as needed Dilaudid 11/29 Continue pain control PT OT evaluation May need acute rehab/SNF 11/30 if still having pain until tomorrow, will trial prednisone JUVENAL on CKD stage III baseline creatinine around 1 Presented creatinine 1.2 Avoid nephrotoxic agents Fluids Follow repeat labs 11/28 crea now 1.1 Sick sinus syndrome Status post pacemaker History of CAD Moderate mid LAD obstruction on coronary CT in 2007 Abnormal nuclear stress testing in April 2021 patient requested medical management On metoprolol succinate and Plavix and statin GERD Will change omeprazole to Protonix as patient is on Plavix Continue famotidine History of CVA On statin and Plavix Hypertension On amlodipine, hydrochlorothiazide and metoprolol succinate we will monitor Hypothyroidism On Synthyroid Hyperlipidemia On statin Bronchiectasis Moderate persistent asthma On home oxygen Continue home inhalers Depression with anxiety On Paxil and BuSpar as needed Left eyelid suture removal in 2-3 days DVT prophylaxis Heparin subcu Disposition Medical floor Full code. Med rec done from [facility]. Please verify when patient is more awake. Admission and Anticipated Discharge Date Admission Date: November 27, 2024 Subjective seen resting in bed, comfortable Very pleasant States she still having significant back pain but as needed medications are still helping Feels tired because of the pain had BM yesterday No other new symptom Review of Systems Review of Systems: all noted and negative except for above Physical Exam Physical Exam: General- oriented x 3, not in distress, speaks in sentences with no effort or accessory muscle use Eyes- anicteric Neck- no JVD Lungs- clear breath sounds bilaterally, no rales/wheezes Heart- normal rate, regular rhythm; no murmurs Abdomen- normal bowel sounds, nondistended, soft, no tenderness Extremities- no pretibial edema, no calf tenderness Neuro- alert, oriented x 3; no gross focal neurologic deficits Skin- warm & dry Results & Data Results & Data Vital Signs (Past 12 Hours) Vital Signs Temp Pulse Resp BP BP Pulse Ox Pulse Ox 11/30/24 14:41 36.4 C L 61 18 112/63 93 11/30/24 11:36 94 11/30/24 07:38 36.7 C 62 16 160/73 H 95 11/30/24 07:09 Pulse Ox O2 Del Method O2 Flow Rate O2 Flow Rate O2 Flow Rate 11/30/24 14:41 Room Air 11/30/24 11:36 91 0 0 11/30/24 07:38 Nasal Cannula 2 11/30/24 07:09 Nasal Cannula 2 all noted and reviewed including below
[2024-12-01] MEDS: ACETAMINOPHEN 500 MG TAB PO SCH (08:57)
--- NOTE | 2024-12-01 15:30 | Hospitalist Progress Note ---
Date of Service December 01, 2024 Assessment & Plan (1) T12 compression fracture: Plan: 89-year-old female with past medical history significant for hypothyroidism, dyslipidemia, secondary hyperparathyroidism, bronchiectasis without complication, diaphragmatic hernia, hypertension, sick sinus syndrome status post pacemaker, CAD, CKD stage III, osteoporosis, degenerative disease, essential tremor, mild cognitive impairment with memory loss, depression with an xiety who lives alone comes because of fall and severe back pain. Patient was in the ER on 11/22/24 with a fall from the bed, striking the left side of her body on the ground. She cut her eyelid with her glasses. Eyelid was sutured in the ER. Imaging studies showed T12 compression fracture. Patient was stable and was discharged home to follow as outpatient. Advised for left eyelid suture removal in 7 days. Patient was having persistent back pain since the fall. But last night was having worsening spasms and came to the ER. Any movement is exacerbating her pain. In the ER pain medication was given and plan for discharge but the pain came back and we were called for admission. Patient is very hard of hearing. Somewhat poor historian. And somewhat drowsy. Can tell her name.. Knows that she is in hospital. Can tell current month. Denies any headache. Denies any blurred vision. No runny nose or sore throat. No cough. Afebrile. Denies any chest pain or shortness of breath. No abdominal pain. Normal bowel and bladder movements. Ambulating without support. States she is ambulating very slowly because of pain. Still having significant spasms and pain in the back. Hemodynamics are okay. T12 compression fracture Muscle spasms Ambulate dysfunction Status post fall Pain control with oxycodone as needed and IV Tylenol prn . And Flexeril as needed [facility] consult PT OT when able to 11/28 Evaluated by orthopedic spine service, surgery not recommended at this point, brace recommended Patient still having severe back pain today Tylenol 1 g 3 times daily ordered, continue oxycodone warm compress PT OT eval If pain continues to worsen, may consider trial of prednisone and as needed Dilaudid 11/29 Continue pain control PT OT evaluation May need acute rehab/SNF 11/30 if still having pain until tomorrow, will trial prednisone 12/01 start prednisone 20mg po daily JUVENAL on CKD stage III baseline creatinine around 1 Presented creatinine 1.2 Avoid nephrotoxic agents Fluids Follow repeat labs 11/28 crea now 1.1 Sick sinus syndrome Status post pacemaker History of CAD Moderate mid LAD obstruction on coronary CT in 2007 Abnormal nuclear stress testing in April 2021 patient requested medical management On metoprolol succinate and Plavix and statin GERD Will change omeprazole to Protonix as patient is on Plavix Continue famotidine History of CVA On statin and Plavix Hypertension On amlodipine, hydrochlorothiazide and metoprolol succinate Hypothyroidism On Synthroid Hyperlipidemia On statin Bronchiectasis Moderate persistent asthma On home oxygen Continue home inhalers Depression with anxiety On Paxil and BuSpar as needed Left eyelid suture removal in 2-3 days DVT prophylaxis Heparin subcu Disposition Medical floor Full code. Admission and Anticipated Discharge Date Admission Date: November 27, 2024 Subjective seen resting in bed, not in distress Still having significant back pain No leg weakness or numbness No other new symptoms Review of Systems Review of Systems: all noted and negative except for above Physical Exam Physical Exam: General- oriented x 3, not in distress, speaks in sentences with no effort or accessory muscle use Eyes- anicteric Neck- no JVD Lungs- clear breath sounds bilaterally Heart- normal rate, regular rhythm; no murmurs Abdomen- normal bowel sounds, nondistended, soft, nontender Extremities- no pretibial edema, no calf tenderness Neuro- alert, oriented x 3; no gross focal neurologic deficits Skin- warm & dry Results & Data Results & Data Vital Signs (Past 12 Hours) Vital Signs Temp Pulse Resp BP Pulse Ox O2 Del Method 12/01/24 15:13 36.4 C L 64 17 148/82 H 92 Room Air 12/01/24 07:15 Room Air 12/01/24 07:12 36.4 C L 63 16 152/75 H 96 Room Air all noted and reviewed including below
[2024-12-01] MEDS: predniSONE 20 MG TAB PO SCH (17:31)
--- NOTE | 2024-12-02 10:18 | Hospitalist Progress Note ---
Date of Service December 02, 2024 Assessment & Plan (1) T12 compression fracture: Plan: 89-year-old female with past medical history significant for hypothyroidism, dyslipidemia, secondary hyperparathyroidism, bronchiectasis without complication, diaphragmatic hernia, hypertension, sick sinus syndrome status post pacemaker, CAD, CKD stage III, osteoporosis, degenerative disease, essential tremor, mild cognitive impairment with memory loss, depression with an xiety who lives alone comes because of fall and severe back pain. Patient was in the ER on 11/22/24 with a fall from the bed, striking the left side of her body on the ground. She cut her eyelid with her glasses. Eyelid was sutured in the ER. Imaging studies showed T12 compression fracture. Patient was stable and was discharged home to follow as outpatient. Advised for left eyelid suture removal in 7 days. Patient was having persistent back pain since the fall. But last night was having worsening spasms and came to the ER. Any movement is exacerbating her pain. In the ER pain medication was given and plan for discharge but the pain came back and we were called for admission. Patient is very hard of hearing. Somewhat poor historian. And somewhat drowsy. Can tell her name.. Knows that she is in hospital. Can tell current month. Denies any headache. Denies any blurred vision. No runny nose or sore throat. No cough. Afebrile. Denies any chest pain or shortness of breath. No abdominal pain. Normal bowel and bladder movements. Ambulating without support. States she is ambulating very slowly because of pain. Still having significant spasms and pain in the back. Hemodynamics are okay. T12 compression fracture Muscle spasms Ambulate dysfunction Status post fall Pain control with oxycodone as needed and IV Tylenol prn . And Flexeril as needed Orthospine consult PT OT when able to 11/28 Evaluated by orthopedic spine service, surgery not recommended at this point, brace recommended Patient still having severe back pain today Tylenol 1 g 3 times daily ordered, continue oxycodone warm compress PT OT eval If pain continues to worsen, may consider trial of prednisone and as needed Dilaudid 11/29 Continue pain control PT OT evaluation May need acute rehab/SNF 11/30 if still having pain until tomorrow, will trial prednisone 12/01 start prednisone 20mg po daily 12/02 Back pain seems to be improving overall Continue prednisone 20 mg p.o. daily x 4 more days Continue scheduled Tylenol Avoid narcotics as much as possible PT OT evaluation May need acute rehab versus [facility] JUVENAL on CKD stage III baseline creatinine around 1 Presented creatinine 1.2 Avoid nephrotoxic agents Fluids Follow repeat labs 11/28 crea now 1.1 Sick sinus syndrome Status post pacemaker History of CAD Moderate mid LAD obstruction on coronary CT in 2007 Abnormal nuclear stress testing in April 2021 patient requested medical management On metoprolol succinate and Plavix and statin GERD Will change omeprazole to Protonix as patient is on Plavix Continue famotidine History of CVA On statin and Plavix Hypertension On amlodipine, hydrochlorothiazide and metoprolol succinate Hypothyroidism On Synthroid Hyperlipidemia On statin Bronchiectasis Moderate persistent asthma On home oxygen Continue home inhalers Depression with anxiety On Paxil and BuSpar as needed Left eyelid suture removal in 2-3 days DVT prophylaxis Heparin subcu Disposition Medical floor Full code. Admission and Anticipated Discharge Date Admission Date: November 27, 2024 Subjective Seen resting in bed, comfortable, not in distress, in good spirits States back pain seems to be improving today No leg weakness or numbness No other new symptoms Review of Systems Review of Systems: all noted and negative except for above Results & Data Results & Data Vital Signs (Past 12 Hours) Vital Signs Temp Pulse Resp BP Pulse Ox O2 Del Method O2 Flow Rate 12/02/24 09:05 82 143/72 H 12/02/24 07:30 Room Air 12/02/24 07:12 36.4 C L 70 18 153/71 H 93 Room Air 12/01/24 23:06 Nasal Cannula 2 all noted and reviewed including below
--- NOTE | 2024-12-03 12:06 | Hospitalist Progress Note ---
Date of Service December 03, 2024 Assessment & Plan (1) T12 compression fracture: Plan: 89-year-old female with past medical history significant for hypothyroidism, dyslipidemia, secondary hyperparathyroidism, bronchiectasis without complication, diaphragmatic hernia, hypertension, sick sinus syndrome status post pacemaker, CAD, CKD stage III, osteoporosis, degenerative disease, essential tremor, mild cognitive impairment with memory loss, depression with an xiety who lives alone comes because of fall and severe back pain. Patient was in the ER on 11/22/24 with a fall from the bed, striking the left side of her body on the ground. She cut her eyelid with her glasses. Eyelid was sutured in the ER. Imaging studies showed T12 compression fracture. Patient was stable and was discharged home to follow as outpatient. Advised for left eyelid suture removal in 7 days. Patient was having persistent back pain since the fall. But last night was having worsening spasms and came to the ER. Any movement is exacerbating her pain. In the ER pain medication was given and plan for discharge but the pain came back and we were called for admission. Patient is very hard of hearing. Somewhat poor historian. And somewhat drowsy. Can tell her name.. Knows that she is in hospital. Can tell current month. Denies any headache. Denies any blurred vision. No runny nose or sore throat. No cough. Afebrile. Denies any chest pain or shortness of breath. No abdominal pain. Normal bowel and bladder movements. Ambulating without support. States she is ambulating very slowly because of pain. Still having significant spasms and pain in the back. Hemodynamics are okay. T12 compression fracture Muscle spasms Ambulate dysfunction Status post fall Pain control with oxycodone as needed and IV Tylenol prn . And Flexeril as needed [facility]ospine consult PT OT when able to 11/28 Evaluated by orthopedic spine service, surgery not recommended at this point, brace recommended Patient still having severe back pain today Tylenol 1 g 3 times daily ordered, continue oxycodone warm compress PT OT eval If pain continues to worsen, may consider trial of prednisone and as needed Dilaudid 11/29 Continue pain control PT OT evaluation May need acute rehab/SNF 11/30 if still having pain until tomorrow, will trial prednisone 12/01 start prednisone 20mg po daily 12/02 Back pain seems to be improving overall Continue prednisone 20 mg p.o. daily x 4 more days Continue scheduled Tylenol Avoid narcotics as much as possible PT OT evaluation May need acute rehab versus alf facility 12/03 stable overall awaiting SNF JUVENAL on CKD stage III baseline creatinine around 1 Presented creatinine 1.2 Avoid nephrotoxic agents Fluids Follow repeat labs 11/28 crea now 1.1 Sick sinus syndrome Status post pacemaker History of CAD Moderate mid LAD obstruction on coronary CT in 2007 Abnormal nuclear stress testing in April 2021 patient requested medical management On metoprolol succinate and Plavix and statin GERD Will change omeprazole to Protonix as patient is on Plavix Continue famotidine History of CVA On statin and Plavix Hypertension On amlodipine, hydrochlorothiazide and metoprolol succinate Hypothyroidism On Synthroid Hyperlipidemia On statin Bronchiectasis Moderate persistent asthma On home oxygen Continue home inhalers Depression with anxiety On Paxil and BuSpar as needed Left eyelid suture removal in 2-3 days DVT prophylaxis Heparin subcu Disposition Medical floor Full code. Admission and Anticipated Discharge Date Admission Date: November 27, 2024 Subjective Seen resting in bedside chair, comfortable, not in distress In good spirits States she is still having some back pain with pain medications helping No leg weakness or numbness No other new symptoms Review of Systems Review of Systems: all noted and negative except for above Physical Exam Physical Exam: General- oriented x 3, not in distress, speaks in sentences with no effort or accessory muscle use Eyes- anicteric Neck- no JVD Lungs- clear breath sounds bilaterally Heart- normal rate, regular rhythm; no murmurs Abdomen- normal bowel sounds, nondistended, soft, no tenderness Extremities- no pretibial edema, no calf tenderness Neuro- alert, oriented x 3; no gross focal neurologic deficits Skin- warm & dry Results & Data Results & Data Vital Signs (Past 12 Hours) Vital Signs Temp Pulse Resp BP Pulse Ox O2 Del Method 12/03/24 07:37 36.6 C 62 18 154/77 H 93 Room Air 12/03/24 07:25 Room Air, Nasal Cannula all noted and reviewed including below
[2024-12-04 10:25] LABS: Hematocrit (blood only) 37.2 % (37.0-47.0); Hemoglobin 12.5 g/dl (12.0-16.0); Immature Granulocytes # (auto) 0.05 K/uL (0.01-0.20); Immature Granulocytes % (auto) 0.6 %; Mean Corpuscular Hemoglobin 29.5 pg (25.0-34.0); Mean Corpuscular Volume 87.7 fL (80.0-100.0); Platelet Count 273 K/uL (130-400); RDW Standard Deviation 49.4 fL (36.4-46.3); Red Blood Count 4.24 M/uL (4.20-5.40); White Blood Count 8.83 K/ul (4.8-10.8)
[2024-12-04 10:45] LABS: Anion Gap 7.0 (3-11); Blood Urea Nitrogen 27.0 mg/dl (6-23); Calcium 9.3 mg/dl (8.6-10.3); Carbon Dioxide 28.0 mmol/L (21-32); Chloride 103.0 mmol/L (98-107); Creatinine Clr Calc Pharmacy 28.3 ml/min; Glucose 125.0 mg/dl (70-99(Fasting)); Potassium 3.8 mmol/L (3.5-5.1); Sodium 138.0 mmol/L (136-145)
--- NOTE | 2024-12-04 16:14 | Hospitalist Progress Note ---
Date of Service December 04, 2024 Assessment & Plan (1) T12 compression fracture: Plan: 89-year-old female with past medical history significant for hypothyroidism, dyslipidemia, secondary hyperparathyroidism, bronchiectasis without complication, diaphragmatic hernia, hypertension, sick sinus syndrome status post pacemaker, CAD, CKD stage III, osteoporosis, degenerative disease, essential tremor, mild cognitive impairment with memory loss, depression with a nxiety who lives alone comes because of fall and severe back pain. Patient was in the ER on 11/22/24 with a fall from the bed, striking the left side of her body on the ground. She cut her eyelid with her glasses. Eyelid was sutured in the ER. Imaging studies showed T12 compression fracture. Patient was stable and was discharged home to follow as outpatient. Advised for left eyelid suture removal in 7 days. Patient was having persistent back pain since the fall. But last night was having worsening spasms and came to the ER. Any movement is exacerbating her pain. In the ER pain medication was given and plan for discharge but the pain came back and we were called for admission. Patient is very hard of hearing. Somewhat poor historian. And somewhat drowsy. Can tell her name.. Knows that she is in hospital. Can tell current month. Denies any headache. Denies any blurred vision. No runny nose or sore throat. No cough. Afebrile. Denies any chest pain or shortness of breath. No abdominal pain. Normal bowel and bladder movements. Ambulating without support. States she is ambulating very slowly because of pain. Still having significant spasms and pain in the back. Hemodynamics are okay. T12 compression fracture Muscle spasms Ambulate dysfunction Status post fall Pain control with oxycodone as needed and IV Tylenol prn . And Flexeril as needed Orthospine consult PT OT when able to 11/28 Evaluated by orthopedic spine service, surgery not recommended at this point, brace recommended Patient still having severe back pain today Tylenol 1 g 3 times daily ordered, continue oxycodone warm compress PT OT eval If pain continues to worsen, may consider trial of prednisone and as needed Dilaudid 12/04 stable overall pain improving had some confusion with prednisone, discontinue awaiting SNF JUVENAL on CKD stage III baseline creatinine around 1 Presented creatinine 1.2 Avoid nephrotoxic agents, fluids crea now 1.1 Sick sinus syndrome Status post pacemaker History of CAD Moderate mid LAD obstruction on coronary CT in 2007 Abnormal nuclear stress testing in April 2021 patient requested medical man agement On metoprolol succinate and Plavix and statin GERD Will change omeprazole to Protonix as patient is on Plavix Continue famotidine History of CVA On statin and Plavix Hypertension On amlodipine, hydrochlorothiazide and metoprolol succinate Hypothyroidism On Synthroid Hyperlipidemia On statin Bronchiectasis Moderate persistent asthma On home oxygen Continue home inhalers Depression with anxiety On Paxil and BuSpar as needed Left eyelid suture removal in 2-3 days DVT prophylaxis Heparin subcu Disposition Medical floor Full code. Admission and Anticipated Discharge Date Admission Date: November 27, 2024 Subjective seen resting in bed, comfortable, in good spirits States back pain is improving No leg weakness or numbness No other new symptoms Review of Systems Review of Systems: all noted and negative except for above Physical Exam Physical Exam: General- oriented x 2, not in distress, speaks in sentences with no effort or accessory muscle use Eyes- anicteric Neck- no JVD Lungs- clear breath sounds bilaterally, no rales/wheezes Heart- normal rate, regular rhythm; no murmurs Abdomen- normal bowel sounds, nondistended, soft, nontender Extremities- no pretibial edema, no calf tenderness Neuro- alert, oriented x 2; no gross focal neurologic deficits Skin- warm & dry Results & Data Results & Data Vital Signs (Past 12 Hours) Vital Signs Temp Pulse Resp BP Pulse Ox O2 Del Method 12/04/24 15:06 36.6 C 64 16 137/70 93 Room Air 12/04/24 07:25 Room Air, Nasal Cannula 12/04/24 07:12 36.5 C 66 16 169/75 H 93 Room Air all noted and reviewed including below
--- NOTE | 2024-12-05 17:35 | Hospitalist Progress Note ---
Date of Service December 05, 2024 Assessment & Plan (1) T12 compression fracture: Plan: 89-year-old female with past medical history significant for hypothyroidism, dyslipidemia, secondary hyperparathyroidism, bronchiectasis without complication, diaphragmatic hernia, hypertension, sick sinus syndrome status post pacemaker, CAD, CKD stage III, osteoporosis, degenerative disease, essential tremor, mild cognitive impairment with memory loss, depression with a nxiety who lives alone comes because of fall and severe back pain. Patient was in the ER on 11/22/24 with a fall from the bed, striking the left side of her body on the ground. She cut her eyelid with her glasses. Eyelid was sutured in the ER. Imaging studies showed T12 compression fracture. Patient was stable and was discharged home to follow as outpatient. Advised for left eyelid suture removal in 7 days. Patient was having persistent back pain since the fall. But last night was having worsening spasms and came to the ER. Any movement is exacerbating her pain. In the ER pain medication was given and plan for discharge but the pain came back and we were called for admission. Patient is very hard of hearing. Somewhat poor historian. And somewhat drowsy. Can tell her name.. Knows that she is in hospital. Can tell current month. Denies any headache. Denies any blurred vision. No runny nose or sore throat. No cough. Afebrile. Denies any chest pain or shortness of breath. No abdominal pain. Normal bowel and bladder movements. Ambulating without support. States she is ambulating very slowly because of pain. Still having significant spasms and pain in the back. Hemodynamics are okay. T12 compression fracture -Pain control with oxycodone as needed and IV Tylenol prn . And Flexeril as needed -Orthospine consult -PT/OT consulted, recommending rehab -awaiting bed placement, medically stable for discharge at this time JUVENAL on CKD stage III -at baseline Sick sinus syndrome Status post pacemaker History of CAD Moderate mid LAD obstruction on coronary CT in 2007 -Abnormal nuclear stress testing in April 2021 patient requested medical management -On metoprolol succinate and Plavix and statin GERD -Will change omeprazole to Protonix as patient is on Plavix -Continue famotidine History of CVA -On statin and Plavix Hypertension -On amlodipine, hydrochlorothiazide and metoprolol succinate Hypothyroidism -On Synthroid Hyperlipidemia -On statin Bronchiectasis Moderate persistent asthma -On home oxygen -Continue home inhalers Depression with anxiety -On Paxil and BuSpar as needed -needs eyelid suture removal before discharge I spent a total of 40 minutes in direct patient care, including [id number] time with the patient and/or family, reviewing medical records, ordering and reviewing diagnostic tests, and coordinating care with other healthcare providers. This time includes: history taking, physical examination, medical decision making, counseling, ECG interpretation, imaging interpretation, lab interpretation, orders, and education, excluding time spent in the performance of separately billed services. Admission and Anticipated Discharge Date Admission Date: November 27, 2024 Subjective Patient seen and examined at bedside. Doing well today, sititng comfortably in chair. No concerns at this time. Review of Systems Review of Systems: CONSTITUTIONAL: Patient denies fevers, chills, sweats and weight changes. EYES: Patient denies any visual symptoms. EARS, NOSE, AND THROAT: No difficulties with hearing. No symptoms of rhinitis or sore throat. CARDIOVASCULAR: Patient denies chest pains, palpitations, orthopnea and paroxysmal nocturnal dyspnea. RESPIRATORY: No dyspnea on exertion, no wheezing or cough. GI: No nausea, vomiting, diarrhea, constipation, abdominal pain, hematochezia or melena. : No urinary hesitancy or dribbling. No nocturia or urinary frequency. No abnormal urethral discharge. MUSCULOSKELETAL: No myalgias or arthralgias. NEUROLOGIC: No chronic headaches, no seizures. Patient denies numbness, tingling or weakness. PSYCHIATRIC: Patient denies problems with mood disturbance. No problems with anxiety. ENDOCRINE: No excessive urination or excessive thirst. DERMATOLOGIC: Patient denies any rashes or skin changes. Physical Exam Physical Exam: Gen: A&O 3 NAD HEENT: NCAT, EOMI, not icteric. External ears normal. No rhinorrhea. Moist mucous membranes. Neck: Supple, full range of motion, no observable masses, No meningeal sign. Lungs: No Respiratory distress. CV: RRR, no edema. Abdomen: Soft, nondistended, No rebound tenderness. MSK: left arm brusing noted Skin: No rashes, petechiae, lesions. Normal color per patient. Neuro: Normal Gait, Grossly intact. Psych: Appropriate for situation. Results & Data Results & Data Vital Signs (Past 12 Hours) Vital Signs Temp Pulse Resp BP Pulse Ox O2 Del Method O2 Flow Rate 12/05/24 14:29 36.5 C 61 16 127/67 95 Room Air 12/05/24 07:55 Nasal Cannula 2 12/05/24 07:32 36.3 C L 60 18 132/63 99 Nasal Cannula 2 Medications Administered Acetaminophen (Acetaminophen 500 Mg Tab) 1,000 mg PO BID SMILEY Stop: 12/31/24 08:59 Last Admin: 12/05/24 09:02 Dose: 1,000 mg Documented By: Admin: 12/04/24 20:18 Dose: 1,000 mg Documented By: Admin: 12/04/24 08:11 Dose: 1,000 mg Documented By: Admin: 12/03/24 19:29 Dose: 1,000 mg Documented By: Admin: 12/03/24 08:36 Dose: 1,000 mg Documented By: Admin: 12/02/24 21:52 Dose: 1,000 mg Documented By: Admin: 12/02/24 08:56 Dose: 1,000 mg Documented By: Admin: 12/01/24 21:13 Dose: 1,000 mg Documented By: Admin: 12/01/24 08:57 Dose: 1,000 mg Documented By: LENO(2) Amlodipine Besylate (Amlodipine Besylate 5 Mg Tab) 7.5 mg PO DAILY SMILEY Stop: 01/03/25 08:59 Last Admin: 12/05/24 09:03 Dose: 7.5 mg Documented By: Admin: 12/04/24 10:12 Dose: 2.5 mg Documented By: MACK Atorvastatin Calcium (Atorvastatin 40 Mg Tab) 80 mg PO DAILY SMILEY Stop: 12/27/24 08:59 Last Admin: 12/05/24 09:04 Dose: 80 mg Documented By: Admin: 12/04/24 08:13 Dose: 80 mg Documented By: Admin: 12/03/24 08:37 Dose: 80 mg Documented By: Admin: 12/02/24 08:52 Dose: 80 mg Documented By: Admin: 12/01/24 07:30 Dose: 80 mg Documented By: LENO(2) Admin: 11/30/24 07:52 Dose: 80 mg Documented By: Admin: 11/29/24 09:14 Dose: 80 mg Documented By: mhc Admin: 11/28/24 08:41 Dose: 80 mg Documented By: Admin: 11/27/24 09:21 Dose: 80 mg Documented By: CHRISTIANO Buspirone HCl (Buspirone 5 Mg Tab) 5 mg PO BID PRN PRN Reason: Anxiety Stop: 12/27/24 07:13 Last Admin: 11/27/24 09:20 Dose: 5 mg Documented By: CHRISTIANO Clopidogrel Bisulfate (Clopidogrel Bisulfate 75 Mg Tab) 75 mg PO DAILY SMILEY Stop: 12/27/24 08:59 Last Admin: 12/05/24 09:04 Dose: 75 mg Documented By: Admin: 12/04/24 08:13 Dose: 75 mg Documented By: Admin: 12/03/24 08:37 Dose: 75 mg Documented By: Admin: 12/02/24 08:53 Dose: 75 mg Documented By: Admin: 12/01/24 07:31 Dose: 75 mg Documented By: LENO(2) Admin: 11/30/24 07:53 Dose: 75 mg Documented By: Admin: 11/29/24 09:15 Dose: 75 mg Documented By: merced Admin: 11/28/24 08:44 Dose: 75 mg Documented By: Admin: 11/27/24 09:20 Dose: 75 mg Documented By: CHRISTIANO Cyclobenzaprine HCl (Cyclobenzaprine Hcl 5 Mg Tab) 5 mg PO TID PRN PRN Reason: back spasms Stop: 12/27/24 07:13 Last Admin: 12/05/24 05:56 Dose: 5 mg Documented By: Admin: 12/04/24 09:39 Dose: 5 mg Documented By: Admin: 12/03/24 11:43 Dose: 5 mg Documented By: Admin: 12/03/24 01:07 Dose: 5 mg Documented By: Admin: 11/30/24 07:52 Dose: 5 mg Documented By: Admin: 11/28/24 10:48 Dose: 5 mg Documented By: Admin: 11/27/24 23:45 Dose: 5 mg Documented By: mackenzie Famotidine (Famotidine 20 Mg Tab) 20 mg PO DAILY SMILEY Stop: 12/27/24 08:59 Last Admin: 12/05/24 09:02 Dose: 20 mg Documented By: Admin: 12/04/24 08:11 Dose: 20 mg Documented By: Admin: 12/03/24 08:36 Dose: 20 mg Documented By: Admin: 12/02/24 09:01 Dose: 20 mg Documented By: Admin: 12/01/24 07:36 Dose: 20 mg Documented By: LENO(2) Admin: 11/30/24 07:54 Dose: 20 mg Documented By: Admin: 11/29/24 09:30 Dose: 20 mg Documented By: merced Admin: 11/28/24 08:44 Dose: 20 mg Documented By: Admin: 11/27/24 09:21 Dose: 20 mg Documented By: CHRISTIANO Fluticasone Propionate (Fluticasone Propionate Na Spr 16 Gm Btl) 1 sprays NA DAILY SMILEY Stop: 12/27/24 08:59 Last Admin: 12/05/24 09:05 Dose: 1 sprays Documented By: Admin: 12/04/24 08:12 Dose: 1 sprays Documented By: Admin: 12/03/24 08:36 Dose: 1 sprays Documented By: Admin: 12/02/24 08:54 Dose: 1 sprays Documented By: Admin: 12/01/24 07:32 Dose: 1 sprays Documented By: LENO(2) Admin: 11/30/24 07:51 Dose: 1 sprays Documented By: Admin: 11/29/24 09:16 Dose: 1 sprays Documented By: merced Admin: 11/28/24 08:37 Dose: 1 sprays Documented By: Admin: 11/27/24 09:20 Dose: 1 sprays Documented By: CHRISTIANO Heparin Sodium (Porcine) (Heparin Sod 5,000 Unit/0.5 Ml Vial) 5,000 units SQ Q8 SMILEY Stop: 12/27/24 13:59 Last Admin: 12/05/24 14:08 Dose: 5,000 units Documented By: Admin: 12/05/24 05:37 Dose: Not Given Documented By: Admin: 12/04/24 21:37 Dose: Not Given Documented By: Admin: 12/04/24 13:19 Dose: 5,000 units Documented By: Admin: 12/04/24 06:02 Dose: 5,000 units Documented By: Admin: 12/03/24 19:29 Dose: 5,000 units Documented By: Admin: 12/03/24 14:00 Dose: 5,000 units Documented By: Admin: 12/03/24 05:07 Dose: Not Given Documented By: Admin: 12/02/24 21:52 Dose: 5,000 units Documented By: Admin: 12/02/24 14:42 Dose: 5,000 units Documented By: Admin: 12/02/24 05:51 Dose: 5,000 units Documented By: Admin: 12/01/24 21:13 Dose: 5,000 units Documented By: Admin: 12/01/24 13:03 Dose: 5,000 units Documented By: LENO(2) Admin: 12/01/24 05:53 Dose: 5,000 units Documented By: Admin: 11/30/24 21:26 Dose: 5,000 units Documented By: Admin: 11/30/24 14:16 Dose: 5,000 units Documented By: Admin: 11/30/24 05:56 Dose: 5,000 units Documented By: Admin: 11/29/24 22:59 Dose: 5,000 units Documented By: Admin: 11/29/24 14:05 Dose: 5,000 units Documented By: mhc Admin: 11/29/24 06:07 Dose: 5,000 units Documented By: ksy Admin: 11/28/24 21:14 Dose: 5,000 units Documented By: ksy Admin: 11/28/24 15:03 Dose: 5,000 units Documented By: Admin: 11/28/24 06:11 Dose: 5,000 units Documented By: snc Admin: 11/27/24 22:55 Dose: 5,000 units Documented By: snc Admin: 11/27/24 13:19 Dose: 5,000 units Documented By: LOU Hydrochlorothiazide (Hydrochlorothiazide 25 Mg Tab) 25 mg PO [id number] SMILEY Stop: 12/27/24 12:59 Last Admin: 12/04/24 08:14 Dose: 25 mg Documented By: Admin: 12/02/24 09:07 Dose: 25 mg Documented By: Admin: 11/29/24 09:15 Dose: 25 mg Documented By: merced Admin: 11/27/24 13:19 Dose: 25 mg Documented By: LOU Levothyroxine Sodium (Levothyroxine Sodium 50 Mcg Tablet) [facility] Stop: 12/28/24 06:29 Last Admin: 12/05/24 05:56 Dose: 50 mcg Documented By: Admin: 12/04/24 06:02 Dose: 50 mcg Documented By: Admin: 12/03/24 05:08 Dose: 50 mcg Documented By: Admin: 12/02/24 05:52 Dose: 50 mcg Documented By: Admin: 12/01/24 05:54 Dose: 50 mcg Documented By: Admin: 11/30/24 05:56 Dose: 50 mcg Documented By: Admin: 11/29/24 06:07 Dose: 50 mcg Documented By: klaus Admin: 11/28/24 06:11 Dose: 50 mcg Documented By: mackenzie Metoprolol Succinate (Metoprolol Succ 50mg Ext Rel Tab) 50 mg PO DAILY [facility] Stop: 12/27/24 08:59 Last Admin: 12/05/24 09:05 Dose: 50 mg Documented By: Admin: 12/04/24 08:13 Dose: 50 mg Documented By: Admin: 12/03/24 08:38 Dose: 50 mg Documented By: Admin: 12/02/24 09:08 Dose: 50 mg Documented By: Admin: 12/01/24 07:32 Dose: 50 mg Documented By: LENO(2) Admin: 11/30/24 07:54 Dose: 50 mg Documented By: Admin: 11/29/24 09:15 Dose: 50 mg Documented By: merced Admin: 11/28/24 08:35 Dose: Not Given Documented By: Admin: 11/27/24 09:22 Dose: 50 mg Documented By: ES Morphine Sulfate (Morphine Sulfate 4 Mg/Ml 1 Ml Carp\Vial) 3 mg IV Q6H PRN PRN Reason: Severe Pain (Scale 7, 8, 9,10) Stop: 12/12/24 16:15 Last Admin: 11/28/24 16:27 Dose: 3 mg Documented By: MICHELLE Oxycodone HCl (Oxycodone Hcl Ir 5 Mg Tab (Immediate Release)) 5 mg PO Q6H PRN PRN Reason: Severe Pain (Scale 7, 8, 9,10) Stop: 12/11/24 07:13 Last Admin: 12/03/24 00:43 Dose: 5 mg Documented By: Admin: 11/30/24 21:27 Dose: 5 mg Documented By: Admin: 11/30/24 14:17 Dose: 5 mg Documented By: Admin: 11/30/24 07:56 Dose: 5 mg Documented By: Admin: 11/30/24 03:02 Dose: 5 mg Documented By: Admin: 11/29/24 14:16 Dose: 5 mg Documented By: merced Admin: 11/29/24 00:02 Dose: 5 mg Documented By: klaus Admin: 11/28/24 15:02 Dose: 5 mg Documented By: Admin: 11/28/24 05:37 Dose: 5 mg Documented By: mackenzie Admin: 11/27/24 09:21 Dose: 5 mg Documented By: CHRISTIANO Pantoprazole Sodium (Pantoprazole 40 Mg Tab) 40 mg PO QAM SMILEY Stop: 12/27/24 08:59 Last Admin: 12/05/24 09:05 Dose: 40 mg Documented By: Admin: 12/04/24 08:13 Dose: 40 mg Documented By: Admin: 12/03/24 08:38 Dose: 40 mg Documented By: Admin: 12/02/24 08:54 Dose: 40 mg Documented By: Admin: 12/01/24 07:31 Dose: 40 mg Documented By: LENO(2) Admin: 11/30/24 07:53 Dose: 40 mg Documented By: Admin: 11/29/24 09:15 Dose: 40 mg Documented By: merced Admin: 11/28/24 08:42 Dose: 40 mg Documented By: Admin: 11/27/24 09:21 Dose: 40 mg Documented By: CHRISTIANO Paroxetine HCl (Paroxetine Hcl 20 Mg Tab) 20 mg PO DAILY SMILEY Stop: 12/27/24 08:59 Last Admin: 12/05/24 10:19 Dose: 20 mg Documented By: Admin: 12/04/24 08:12 Dose: 20 mg Documented By: Admin: 12/03/24 08:38 Dose: 20 mg Documented By: Admin: 12/02/24 08:55 Dose: 20 mg Documented By: Admin: 12/01/24 07:31 Dose: 20 mg Documented By: LENO(2) Admin: 11/30/24 07:52 Dose: 20 mg Documented By: Admin: 11/29/24 09:10 Dose: 20 mg Documented By: merced Admin: 11/28/24 08:43 Dose: 20 mg Documented By: Admin: 11/27/24 09:20 Dose: 20 mg Documented By: CHRISTIANO Polyethylene Glycol (Polyethylene (Miralax) 17 Gm Pack) 17 gm PO DAILY SMILEY Stop: 12/29/24 13:59 Last Admin: 12/05/24 09:06 Dose: Not Given Documented By: Admin: 12/04/24 08:11 Dose: 17 gm Documented By: Admin: 12/03/24 08:36 Dose: 17 gm Documented By: Admin: 12/02/24 08:56 Dose: 17 gm Documented By: Admin: 12/01/24 07:36 Dose: 17 gm Documented By: LENO(2) Admin: 11/30/24 07:56 Dose: 17 gm Documented By: Admin: 11/29/24 14:19 Dose: 17 gm Documented By: merced Umeclidinium/Vilanterol (Umeclidinium/Vilanterol 62.5/25mcg 7 Puffs/Inhaler) 1 puffs INH DAILY SMILEY Stop: 12/27/24 08:59 Last Admin: 12/05/24 09:06 Dose: 1 puffs Documented By: Admin: 12/04/24 11:28 Dose: 1 puffs Documented By: Admin: 12/03/24 08:36 Dose: 1 puffs Documented By: Admin: 12/02/24 08:57 Dose: 1 puffs Documented By: Admin: 12/01/24 07:31 Dose: 1 puffs Documented By: [email or web address]) Admin: 11/30/24 07:51 Dose: 1 puffs Documented By: Admin: 11/29/24 09:16 Dose: 1 puffs Documented By: merced Admin: 11/28/24 08:37 Dose: 1 puffs Documented By: Admin: 11/27/24 09:20 Dose: 1 puffs Documented By: CHRISTIANO
[2024-12-06 07:28] VITALS: RESP 17
[2024-12-06 08:14] LABS: Hematocrit (blood only) 37.7 % (37.0-47.0); Hemoglobin 12.8 g/dl (12.0-16.0); Mean Corpuscular Hemoglobin 29.6 pg (25.0-34.0); Mean Corpuscular Volume 87.1 fL (80.0-100.0); Platelet Count 252 K/uL (130-400); RDW Standard Deviation 48.1 fL (36.4-46.3); Red Blood Count 4.33 M/uL (4.20-5.40); White Blood Count 9.23 K/ul (4.8-10.8)
[2024-12-06 08:35] LABS: Anion Gap 7.0 (3-11); Blood Urea Nitrogen 34.0 mg/dl (6-23); Calcium 9.1 mg/dl (8.6-10.3); Carbon Dioxide 27.0 mmol/L (21-32); Chloride 103.0 mmol/L (98-107); Creatinine Clr Calc Pharmacy 27.9 ml/min; Glucose 106.0 mg/dl (70-99(Fasting)); Potassium 4.3 mmol/L (3.5-5.1); Sodium 137.0 mmol/L (136-145)
[2024-12-06 12:00] VITALS: BP 132/81; PULSE 70; TEMP 97.3; O2SAT 95
--- NOTE | 2024-12-06 13:37 | Discharge Summary ---
Discharge Summary Date of Service December 06, 2024 Principal Dx & Hospital Course #1 = Principal Diagnosis (1) T12 compression fracture: 89-year-old female with past medical history significant for hypothyroidism, dyslipidemia, secondary hyperparathyroidism, bronchiectasis without complication, diaphragmatic hernia, hypertension, sick sinus syndrome status post pacemaker, CAD, CKD stage III, osteoporosis, degenerative disease, essential tremor, mild cognitive impairment with memory loss, depression with anxiety who lives alone comes because of fall and severe back pain. Patient was in the ER on 11/22/24 with a fall from the bed, striking the left side of her body on the ground. T12 compression fracture -Pain control with oxycodone as needed and IV Tylenol prn . And Flexeril as needed -Orthospine consult -PT/OT consulted, recommending rehab -awaiting bed placement, medically stable for discharge at this time JUVENAL on CKD stage III -at baseline Sick sinus syndrome Status post pacemaker History of CAD Moderate mid LAD obstruction on coronary CT in 2007 -Abnormal nuclear stress testing in April 2021 patient requested medical management -On metoprolol succinate and Plavix and statin GERD -Will change omeprazole to Protonix as patient is on Plavix -Continue famotidine History of CVA -On statin and Plavix Hypertension -On amlodipine, hydrochlorothiazide and metoprolol succinate Hypothyroidism -On Synthroid Hyperlipidemia -On statin Bronchiectasis Moderate persistent asthma -On home oxygen -Continue home inhalers Depression with anxiety -On Paxil and BuSpar as needed Notes For Next Care Provider 89-year-old female with past medical history significant for hypothyroidism, dyslipidemia, secondary hyperparathyroidism, bronchiectasis without complication, diaphragmatic hernia, hypertension, sick sinus syndrome status post pacemaker, CAD, CKD stage III, osteoporosis, degenerative disease, essential tremor, mild cognitive impairment with memory loss, depression with anxiety who lives alone comes because of fall and severe back pain. On medicine, ortho spine consulted and recommended conservative management. PT/OT consulted recommended SNF. On 12/07/2023 patient medically stable for discharge to SNF. To do: [ ] suture removal from eyelid outpatient Medication Changes From Visit -see below Admission HPI Per Admitting Provider 89-year-old female with past medical history significant for hypothyroidism, dyslipidemia, secondary hyperparathyroidism, bronchiectasis without complication, diaphragmatic hernia, hypertension, sick sinus syndrome status post pacemaker, CAD, CKD stage III, osteoporosis, degenerative disease, essential tremor, mild cognitive impairment with memory loss, depression with anxiety who lives alone comes because of fall and severe back pain. Patient was in the ER on 11/22/24 with a fall from the bed, striking the left side of her body on the ground. She cut her eyelid with her glasses. Eyelid was sutured in the ER. Imaging studies showed T12 compression fracture. Patient was stable and was discharged home to follow as outpatient. Advised for left eyelid suture removal in 7 days. Patient was having persistent back pain since the fall. But last night was having worsening spasms and came to the ER. Any movement is exacerbating her pain. In the ER pain medication was given and plan for discharge but the pain came back and we were called for admission. Patient is very hard of hearing. Somewhat poor historian. And somewhat drowsy. Can tell her name.. Knows that she is in hospital. Can tell current month. Denies any headache. Denies any blurred vision. No runny nose or sore throat. No cough. Afebrile. Denies any chest pain or shortness of breath. No abdominal pain. Normal bowel and bladder movements. Ambulating without support. States she is ambulating very slowly because of pain. Still having significant spasms and pain in the back. Hemodynamics are okay. Past medical history. As mentioned above. Past surgical history. Right breast biopsy. Colonoscopy. Colonoscopy with biopsy. Repair of bilateral brow ptosis. Bilateral blepharoplasty upper eyelid. Social history. Lives alone. No smoking. Alcohol occasional. No drug use. Family history. Mother arthritis. Asthma. Hypertension. Father had skin cancer. Diabetes. Heart disorder. Hypertension. Family tremor. Brother had Hodgkin's lymphoma. Maternal aunt had breast cancer. Paternal aunt had breast cancer. Medication : As per epic. Can you verify with patient later as patient currently drowsy. Discharge Exam Gen: A&O 3 NAD HEENT: NCAT, EOMI, not icteric. External ears normal. No rhinorrhea. Moist mucous membranes. Neck: Supple, full range of motion, no observable masses, No meningeal sign. Lungs: No Respiratory distress. CV: RRR, no edema. Abdomen: Soft, nondistended, No rebound tenderness. MSK: left arm brusing noted Skin: No rashes, petechiae, lesions. Normal color per patient. Neuro: Normal Gait, Grossly intact. Psych: Appropriate for situation. Updated Medication List Medication Instructions Recorded Confirmed Type Oxygen Home 11/27/24 11/27/24 History atorvastatin 80 mg tablet (Lipitor) 80 mg PO DAILY 11/27/24 11/27/24 History buspirone 5 mg tablet 5 mg PO BID PRN Anxiety 11/27/24 11/27/24 History clopidogrel 75 mg tablet (Plavix) 75 mg PO DAILY 11/27/24 11/27/24 History famotidine 20 mg tablet 20 mg PO DAILY 11/27/24 11/27/24 History fluticasone propionate 50 1 spray intranasal DAILY 11/27/24 11/27/24 History mcg/actuation nasal spray,suspension hydrochlorothiazide 25 mg tablet 25 mg PO UD 11/27/24 11/27/24 History levalbuterol tartrate 45 2 inh inhalation Q4H PRN Shortness 11/27/24 11/27/24 History mcg/actuation aerosol inhaler Of Breath Or Wheezing (Xopenex HFA) levothyroxine 50 mcg tablet 50 mcg PO DAILY 11/27/24 11/27/24 History metoprolol succinate 50 mg 50 mg PO DAILY 11/27/24 11/27/24 History tablet,extended release 24 hr omeprazole 40 mg capsule,delayed 40 mg PO DAILY 11/27/24 11/27/24 History release paroxetine HCl 20 mg tablet 20 mg PO DAILY 11/27/24 11/27/24 History umeclidinium 62.5 mcg-vilanterol 1 inh inhalation DAILY 11/27/24 11/27/24 History 25 mcg/actuation powdr for inhalation (Anoro Ellipta) amlodipine 5 mg tablet 7.5 mg (1.5 x 5 mg) PO DAILY #60 12/06/24 Rx tabs cyclobenzaprine 5 mg tablet 5 mg PO TID PRN muscle spasm #14 12/06/24 Rx tabs oxycodone 5 mg tablet 5 mg PO Q6H PRN pain 5 days #14 12/06/24 Rx tabs polyethylene glycol 3350 17 gram 17 g PO DAILY PRN constipation #30 12/06/24 Rx oral powder packet (Miralax) ea Hospital Stay Data Consultations 11/27/24 05:39 ED Decision to Admit Stat 11/27/24 09:00 Consult Orthopedic Spine Surgery Routine Diagnostic Imagining Performed 11/27/24 07:52 CT thoracic spine wo con Urgent Pending Results Patient Have Any Pending Studies at Discharge: No Discharge Instructions Given to Patient (Per Discharging Provider) Diagnosis: T12 compression fracture, JUVENAL on CKD Follow Ups: PCP, ortho spine Incidental Findings: f/u imaging for 12mmg pulmonary nodule on CT chest 1. Please follow up with PCP, ortho spine. 2. Stay hydrated! 3. Get sutures removed outpatient! Total Time Total Time Spent Total Time Spent (In Minutes): I spent a total of 35 minutes in direct patient care, including [id number] time with the patient and/or family, reviewing medical records, ordering and reviewing diagnostic tests, and coordinating care with other healthcare providers. This time includes: history taking, physical examination, medical decision making, counseling, ECG interpretation, imaging interpretation, lab interpretation, orders, and education, excluding time spent in the performance of separately billed services.
== END 2024-12-06 13:42 | DRG 543 ==
LOC: ED 00:32 → EDINP 06:36 → SUATTDRO 06:36 → 3N 07:14

== ENCOUNTER 2025-01-14 14:08 | Inpatient (IN) ==
--- NOTE | 2025-01-14 16:30 | Emergency Department Note ---
Impression & Plan T12 compression fracture, Constipation ED Provider Note Provider: Baldemar Winslow MD CHIEF COMPLAINT: Back pain to right lower quadrant pain HISTORY OF PRESENT ILLNESS: Patient is a 89-year-old female past medical history of T12 compression fracture in November, CVA, BPPV, CKD presenting here today with sisters. Suffered a fall and had a T12 compression fracture last month. Conservative measures and did rehab at [facility] but minimal improvement. Still having back pain prickly with movement. No new falls. Reports intermittent sharp stabbing pain in the right back to the now right lower abdomen has developed over the last at least few days. No nausea or vomiting. No bladder or bowel dysfunction. Oxycodone does allow her to sleep but does not totally alleviate the pain when she uses it at night. No numbness or tingling newly in the lower legs. There is trace edema here but she states this is not that abnormal. Denies chest pain or shortness of breath. PAST MEDICAL HISTORY: As noted above MEDICATIONS: Reviewed home medication list SOCIAL HISTORY: Has been staying with sisters since the prior hospitalization due to pain issues PHYSICAL EXAM: GENERAL: alert and oriented in no acute distress on stretcher Head: normocephalic and atraumatic EYES: No injection, discharge or icterus. EOMI. NECK: Trachea midline. ENT: Mucous membranes pink and moist. LUNGS: Airway patent. No retractions or tachypnea HEART: Regular rate and rhythm. ABDOMEN: Soft occasional point tenderness in right lower quadrant but no masses appreciated. BACK: No midline tenderness, no SI joint tenderness. No bilateral flank tenderness. SKIN: Acyanotic, warm, dry, without rashes EXTREMITIES: Without tenderness and trace to 1+ bilateral lower extremity edema without weeping or erythema. NEUROLOGICAL: No focal deficits. No aphasia. No facial droop or slurred speech. Normal strength and tone in the extremities. Sensation to gross touch normal. Ambulatory. PDMP was checked without noted issue. Patient's laboratory studies and imaging reviewed. Differential includes Appendicitis, fractures, infections, diverticulitis, UTI, obstruction, mesenteric ischemia, aortic pathology, inflammatory bowel disease, renal colic, PUD, pancreatitis, biliary pathology, hernia, volvulus, constipation, as well as other pathologies. IMPRESSION/MEDICAL DECISION MAKING: Patient well-appearing in no obvious distress. Vitals generally reassuring here although somewhat hypertensive. Could be ongoing pain related to her fracture versus new abdominal pathology given her pain in the right lower quadrant and slight tenderness at times. Blood work is ordered. Given her allergy profile noncontrast abdominal CT and CT lumbar spine is ordered to evaluate the prior fracture and look for new etiologies or worsening. Declined pain medicine here initially. CT of the lumbar spine and abdomen pelvis per radiology without significant acute intra-abdominal findings with however noted worsening of T12 compression fracture with almost complete height loss at this time. Brace has been ineffective at home. Laboratory studies here with a borderline leukocytosis 11 with slight anemia 11.8 not far off previous of 12. No significant electrolyte abnormality or renal dysfunction. Noes of hepatitis or pancreatitis. Urinalysis sent for completeness. Discussed with her options at this time. Has allergy to various medications. Worsening T12 compression fracture and uncontrolled pain at home even with the use of narcotics at times. Cannot exclude that some component of discomfort might be a little bit of constipation as well. Discussion with her and family given her very poor pain control discussed staying for further spine evaluation and pain control optimization. Discussion with her and her sisters who are agreeable to this plan. Believe bowel regimen be helpful as well. Given some fentanyl and Tylenol for pain which she is finally excepted here. DIAGNOSIS: T12 compression fracture, right-sided abdominal pain/constipation DISPOSITION: Hospitalist will evaluate Patient was agreeable with this plan. Past Med/Surg History Problem List (Updated 01/14/25 @ 19:26 by Baldemar Winslow M.D.) Constipation (Acute) T12 compression fracture (Acute) JUVENAL (acute kidney injury) (Acute) Back muscle spasm (Acute) COVID-19 (Acute) Abnormal chest CT History of recent stroke (Acute) CVA (cerebral vascular accident) JUVENAL (acute kidney injury) DVT prophylaxis Acute confusion (Acute) Facial paresthesia (Acute) Hand paresthesia (Acute) Acute loss of vision (Acute) Arterial branch occlusion of retina (Acute) Chronic rhinitis Sensorineural hearing loss of both ears BPPV (benign paroxysmal positional vertigo) Imbalance Dysphonia LPRD (laryngopharyngeal reflux disease) Systolic murmur Cough Dyspnea on exertion Hip pain, left Chronic rhinitis Hypothyroidism Depression Asthma CKD (chronic kidney disease), stage III Hypertension (Acute) Medical History Dysphagia Abnormal ECG Elevated troponin Pneumonia Microscopic hematuria Shoulder pain, left Anxiety and depression Elevated troponin Chest discomfort Pneumonia Weakness of voice Dyspnea on exertion Chronic cough Bronchiectasis Vitamin D deficiency TIA (transient ischemic attack) Changes in vision Encounter for pre-operative examination GI bleed 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 Pacemaker SSS (sick sinus syndrome) CAD (coronary artery disease) Essential tremor Abnormal urinalysis Acute anemia Multifocal pneumonia Weakness Anemia Hypoxic Bronchiectasis with (acute) exacerbation SOB (shortness of breath) Weakness Hypercholesterolemia Osteoporosis Secondary hyperparathyroidism GERD (gastroesophageal reflux disease) Heart block Vitamin D deficiency Surgical History Hx of blepharoplasty Hx of repair of rotator cuff Hx of tonsillectomy History of breast lump removal Family History Father Hypertension Heart disease Mother Hypertension Asthma Other Cancer Diabetes Kidney disease Lung disease No family history of adverse response to anesthesia No family history of bleeding disorder Social History Smoking Status: Never smoker Second Hand Exposure: No; Do You Dip or Chew Tobacco: No; Hx Alcohol Use: No Hx Substance Use: No Preferred Language: Wolof Communication Ability: Effective Ergonomics Technician Required: No Beliefs That Will Affect Care: None marital status: / Current Living Situation: Family Current Living Situation Comment: Apartment ([facility]) current occupational status: retired Feels Safe at Home: Yes Assistive Devices: None Allergies Allergies Allergy/AdvReac Type Severity Reaction Status Date / Time Iodinated Contrast Media Allergy Intermediate IV dye Verified 01/14/25 18:21 -hivfernanda trolamine salicylate Allergy Mild Rash Verified 01/14/25 18:21 [From Myoflex] NSAIDS (Non-Steroidal Allergy Unknown UNKNOWN Verified 01/14/25 18:21 Anti-Inflamma primidone Allergy Unknown UNKNOWN Verified 01/14/25 18:21 sertraline Allergy Unknown UNKNOWN Verified 01/14/25 18:21 Sulfa (Sulfonamide Allergy Unknown "SULFA" Verified 01/14/25 18:21 Antibiotics) ALLERGY Home Meds Home Medications Medication Instructions Recorded Confirmed Oxygen Home 11/27/24 11/27/24 atorvastatin 80 mg tablet (Lipitor) 80 mg PO DAILY 11/27/24 01/14/25 buspirone 5 mg tablet 5 mg PO BID PRN Anxiety 11/27/24 01/14/25 clopidogrel 75 mg tablet (Plavix) 75 mg PO DAILY 11/27/24 01/14/25 famotidine 20 mg tablet 20 mg PO DAILY 11/27/24 01/14/25 fluticasone propionate 50 1 spray intranasal DAILY 11/27/24 01/14/25 mcg/actuation nasal spray,suspension hydrochlorothiazide 25 mg tablet 25 mg PO .Q3DAYS 11/27/24 01/14/25 levalbuterol tartrate 45 2 inh inhalation Q4H PRN Shortness 11/27/24 01/14/25 mcg/actuation aerosol inhaler Of Breath Or Wheezing (Xopenex HFA) levothyroxine 50 mcg tablet 50 mcg PO DAILY 11/27/24 01/14/25 metoprolol succinate 50 mg 50 mg PO DAILY 11/27/24 01/14/25 tablet,extended release 24 hr omeprazole 40 mg capsule,delayed 40 mg PO DAILY 11/27/24 01/14/25 release paroxetine HCl 20 mg tablet 20 mg PO DAILY 11/27/24 01/14/25 umeclidinium 62.5 mcg-vilanterol 1 inh inhalation DAILY 11/27/24 01/14/25 25 mcg/actuation powdr for inhalation (Anoro Ellipta) Previous Rx's Medication Instructions Recorded amlodipine 5 mg tablet 7.5 mg (1.5 x 5 mg) PO DAILY #60 12/06/24 tabs cyclobenzaprine 5 mg tablet 5 mg PO TID PRN muscle spasm #14 12/06/24 tabs polyethylene glycol 3350 17 gram 17 g PO DAILY PRN constipation #30 12/06/24 oral powder packet (Miralax) ea Results & Data (ED) Vital Signs Vital Signs - 24 hr 01/14/25 14:32 01/14/25 18:00 01/14/25 20:16 Temperature 36.9 C Temperature Source Temporal Artery Scan Pulse Rate 74 Pulse Rate [Finger] 69 42 L Pulse Rhythm [Finger] Regular Pulse Strength [Finger] Normal Respiratory Rate 18 18 15 Respiratory Effort / Characteristics Non-Labored Spontaneous Non-Labored Non-Labored Respiratory Depth Normal Normal Normal Respiratory Pattern Regular Regular Blood Pressure 144/77 H Blood Pressure [Right Arm] 163/61 H 148/82 H Blood Pressure Mean 99 Blood Pressure Mean [Right Arm] 95 104 Blood Pressure Position [Right Arm] Lying Pulse Oximetry 96 93 97 Oxygen Delivery Method Room Air Room Air Room Air Oxygen Flow Rate Sepsis Recent Fever Within 48 Hours No Sepsis New/Unexplained Change in Mental Status N/A Sepsis Action Taken by Nursing No Action Required 01/14/25 20:32 01/14/25 22:01 Temperature Temperature Source Pulse Rate 65 Pulse Rate [Finger] 78 Pulse Rhythm [Finger] Regular Pulse Strength [Finger] Normal Respiratory Rate 16 Respiratory Effort / Characteristics Non-Labored Respiratory Depth Normal Respiratory Pattern Regular Blood Pressure Blood Pressure [Right Arm] 148/82 H Blood Pressure Mean Blood Pressure Mean [Right Arm] 104 Blood Pressure Position [Right Arm] Lying Pulse Oximetry 96 Oxygen Delivery Method Nasal Cannula Oxygen Flow Rate 2 Sepsis Recent Fever Within 48 Hours Sepsis New/Unexplained Change in Mental Status Sepsis Action Taken by Nursing Laboratory Data 01/14/25 17:46 01/14/25 17:46 Lab Results 01/14/25 01/14/25 Range/Units 17:46 18:53 WBC 11.16 H (4.8-10.8) K/ul RBC 4.10 L (4.20-5.40) M/uL Hgb 11.8 L (12.0-16.0) g/dl Hct 35.7 L (37.0-47.0) % MCV 87.1 (80.0-100.0) fL MCH 28.8 (25.0-34.0) pg MCHC 33.1 (32.0-36.0) g/dL RDW Std Deviation 49.5 H (36.4-46.3) fL RDW Coeff of Lakshmi 15.5 H (11.5-14.5) % Plt Count 190 (130-400) K/uL MPV 10.3 (9.4-12.4) fL Immature Gran % (Auto) 0.4 % Neut % (Auto) 76.8 % Lymph % (Auto) 11.6 % [place] % (Auto) 9.4 % Eos % (Auto) 1.5 % Baso % (Auto) 0.3 % Neut # (Auto) 8.58 H (1.40-6.50) K/uL Lymph # (Auto) 1.29 (1.20-3.40) K/uL [place] # (Auto) 1.05 H (0.11-0.59) K/uL Eos # (Auto) 0.17 (0.00-0.50) K/uL Baso # (Auto) 0.03 (0.00-0.20) K/uL Immature Gran # (Auto) 0.04 (0.01-0.20) K/uL Sodium 137 (136-145) mmol/L Potassium 3.4 L (3.5-5.1) mmol/L Chloride 103 (98-107) mmol/L Carbon Dioxide 27 (21-32) mmol/L Anion Gap 7 (3-11) BUN 23 (6-23) mg/dl Creatinine 1.05 (0.6-1.2) mg/dl Est Cr Clr Drug Dosing Not Reportable eGFR 51.42 BUN/Creatinine Ratio 21.9 H (10-20) Glucose 100 H (70-99(Fasting)) mg/dl Calcium 9.3 (8.6-10.3) mg/dl Magnesium 1.9 (1.7-2.4) mg/dl Total Bilirubin 0.7 (0.2-1.0) mg/dl AST 15 (13-39) U/L ALT 12 (7-52) U/L Alkaline Phosphatase 104 (34-104) U/L Total Protein 6.8 (6.0-8.3) gm/dl Albumin 3.7 (3.4-5.0) gm/dl Globulin 3.1 (2.5-4.0) gm/dl Albumin/Globulin Ratio 1.2 (0.9-2) Lipase 21 (11-82) U/L Urine Color Yellow Urine Appearance Clear (Clear) Urine pH 6.5 (4.5-7.5) Ur Specific [place] 1.018 (1.000-1.030) Urine Protein Negative (Negative) Urine Glucose (UA) Negative (Negative) Urine Ketones Trace H (Negative) Urine Blood Negative (Negative) Urine Nitrite Negative (Negative) Urine Bilirubin Negative (Negative) Urine Urobilinogen Negative (Negative) Ur Leukocyte Esterase Trace H (Negative) Urine WBC (Auto) 0-5 (0-5) /hpf Urine RBC (Auto) 0-2 (0-2) /hpf U Hyaline Cast (Auto) 0-2 (0-2) /lpf U Epithel Cells (Auto) 0-2 (0-2) /hpf Urine Bacteria (Auto) None Seen (None Seen) Urine Comment Administered Medications Discontinued Medications Fentanyl Citrate (Fentanyl Citrate Pf 100 Mcg/2 Ml Vial) 25 mcg IV NOW STA Stop: 01/14/25 19:26 Last Admin: 01/14/25 20:10 Dose: 25 mcg Documented By: vgr Acetaminophen (Ofirmev) 1,000 mg in 100 mls @ 400 mls/hr IV NOW STA Stop: 01/14/25 19:39 Last Infusion: 01/14/25 20:32 Dose: Infused Documented By: vgr Admin: 01/14/25 20:11 Dose: 400 mls/hr Documented By: vgr Imaging Data Radiologist's Impression: Abdomen/Pelvis CT 01/14/25 16:08 Clinical History: Abdominal pain Technique: Axial computed tomography images were obtained of the abdomen and pelvis without intravenous contrast. Comparison is made to the prior CT dated 11/22/2024 Findings: The liver is overall of normal size, attenuation, and contour with no sign of cirrhosis or significant fatty infiltration. No definite liver mass lesion is seen on this noncontrast study. There is a small gallstone. There is no sign of acute cholecystitis. No bile duct dilatation is noted. The spleen is of normal size. No focal splenic lesion is evident. The pancreas appears normal with no sign of acute or chronic pancreatitis and no mass lesion noted. The pancreatic duct is of normal caliber. The adrenal glands appear unremarkable. No renal or proximal ureteral calculi are seen. There is no hydronephrosis or perinephric stranding. No definite renal mass lesion is identified. The aorta is of normal caliber. No abdominal adenopathy is seen. There is an unchanged moderate sized hiatal hernia. There is no sign of small bowel obstruction. There is mild diverticulosis without evidence of diverticulitis. No free intraperitoneal fluid or air is identified. No distal ureteral or bladder calculi are seen. No obvious bladder mass lesion is evident. The iliac arteries are of normal caliber. No pelvic adenopathy is noted. There is mild atelectasis or scar in the right middle lobe and lingula. There is a worsened T12 compression fracture. There is now near complete loss of vertebral body height. There is unchanged grade 1 anterolisthesis at L5-S1 due to L5 pars defects. There is left worse than right hip osteoarthritis Impression: 1. Severe T12 compression fracture, worsened since the prior study 2. Unchanged moderate sized hiatal hernia 3. Cholelithiasis without evidence of acute cholecystitis 4. Mild diverticulosis without evidence of diverticulitis ACT 112: Positive. There are findings on this exam that require communication between the performing entity and the patient following Patient Test Result Information Act ([place] ACT 112) guidelines. Electronically signed by Jesse Whitney 01-14-2025 4:[address] 01/14/25 16:08 Technique: Axial computed tomography images were obtained of the lumbar spine without intravenous contrast. Sagittal and coronal reconstructions were obtained Comparison is made to the CT of the abdomen and pelvis dated 11/22/2024 Findings: There is a worsened T12 compression fracture. There is now near complete loss of vertebral body height. There is up to 3 mm of retropulsion of bone into the spinal canal. No other fracture is identified. There is scoliosis. There is unchanged grade 1 anterolisthesis at L5-S1 due to L5 pars defects. No focal osseous lesion is evident. There is no definite sign of osteomyelitis At L1-2, there is a mild disc bulge. There is no spinal stenosis. The neural foramen are patent At L2-3, there is a disc bulge without spinal stenosis. There is mild bilateral neural foramen narrowing At L3-4, there is a disc bulge without spinal stenosis. There is mild bilateral neural foramen narrowing At L4-5, there is a disc bulge without spinal stenosis. There is mild bilateral neural foramen narrowing At L5-S1, there is a disc bulge without spinal stenosis. There is right neural foramen narrowing that may affect the right L5 nerve root. There is facet osteoarthritis Impression: 1. Severe T12 compression fracture, worsened since the prior study 2. Scoliosis 3. Unchanged anterolisthesis at L5-S1 due to L5 pars defects 4. Lumbar disc bulges without spinal stenosis 5. Right L5-S1 neural foramen narrowing that may affect the right L5 nerve root. Less severe neural foramen narrowing is seen at other levels Electronically signed by Jesse Whitney 01-14-2025 5:03 PM Discharge Plan Visit Data Chief Complaint: Back Injury/Pain Stated Complaint: BACK PAIN ED Provider: Baldemar Winslow Discharge Problem: T12 compression fracture, Constipation Patient Disposition: Being Evaluated by Hospitalist Condition: Fair Forms Stand Alone Forms: My [facility] Prescriptions Prescriptions: No Action buspirone 5 mg Tablet 5 mg PO BID PRN (Reason: Anxiety) atorvastatin [Lipitor] 80 mg Tablet 80 mg PO DAILY metoprolol succinate 50 mg Tablet Extended Release 24 Hr 50 mg PO DAILY clopidogrel [Plavix] 75 mg Tablet 75 mg PO DAILY omeprazole 40 mg Capsule,Delayed Release(Dr/Ec) 40 mg PO DAILY famotidine 20 mg Tablet 20 mg PO DAILY levothyroxine 50 mcg Tablet 50 mcg PO DAILY paroxetine HCl 20 mg Tablet 20 mg PO DAILY hydrochlorothiazide 25 mg Tablet 25 mg PO .Q3DAYS fluticasone propionate 50 mcg/actuation [place],Suspension 1 spray INTRANASAL DAILY Rx Instructions: administer into each nostril levalbuterol tartrate [Xopenex HFA] 45 mcg/actuation Hfa Aerosol Inhaler 2 inh INHALATION Q4H PRN (Reason: Shortness Of Breath Or Wheezing) umeclidinium-vilanterol [Anoro Ellipta] 62.5-25 mcg/actuation Blister With Device 1 inh INHALATION DAILY (DME) Oxygen Home Liters Per Minute polyethylene glycol 3350 [Miralax] 17 gram Powder In Packet 17 g PO DAILY PRN (Reason: constipation) Qty: 30 0RF amlodipine 5 mg Tablet 7.5 mg PO DAILY Qty: 60 0RF Rx Instructions: PER PT "ONLY TAKE 1 TABLET DAILY". cyclobenzaprine 5 mg Tablet 5 mg PO TID PRN (Reason: muscle spasm) Qty: 14 0RF Referrals Referrals: Heather Harper MD [Outside Practitioners] - Discharge Problem: T12 compression fracture Qualifiers: Encounter type: subsequent encounter Fracture healing: with nonunion Qualified Code(s): S22.080K - Wedge compression fracture of T11-T12 vertebra, subsequent encounter for fracture with nonunion
--- NOTE | 2025-01-14 16:59 | CT Scan Report ---
Clinical History: Abdominal pain Technique: Axial computed tomography images were obtained of the abdomen and pelvis without intravenous contrast. Comparison is made to the prior CT dated 11/22/2024 Findings: The liver is overall of normal size, attenuation, and contour with no sign of cirrhosis or significant fatty infiltration. No definite liver mass lesion is seen on this noncontrast study. There is a small gallstone. There is no sign of acute cholecystitis. No bile duct dilatation is noted. The spleen is of normal size. No focal splenic lesion is evident. The pancreas appears normal with no sign of acute or chronic pancreatitis and no mass lesion noted. The pancreatic duct is of normal caliber. The adrenal glands appear unremarkable. No renal or proximal ureteral calculi are seen. There is no hydronephrosis or perinephric stranding. No definite renal mass lesion is identified. The aorta is of normal caliber. No abdominal adenopathy is seen. There is an unchanged moderate sized hiatal hernia. There is no sign of small bowel obstruction. There is mild diverticulosis without evidence of diverticulitis. No free intraperitoneal fluid or air is identified. No distal ureteral or bladder calculi are seen. No obvious bladder mass lesion is evident. The iliac arteries are of normal caliber. No pelvic adenopathy is noted. There is mild atelectasis or scar in the right middle lobe and lingula. There is a worsened T12 compression fracture. There is now near complete loss of vertebral body height. There is unchanged grade 1 anterolisthesis at L5-S1 due to L5 pars defects. There is left worse than right hip osteoarthritis Impression: 1. Severe T12 compression fracture, worsened since the prior study 2. Unchanged moderate sized hiatal hernia 3. Cholelithiasis without evidence of acute cholecystitis 4. Mild diverticulosis without evidence of diverticulitis ACT 112: Positive. There are findings on this exam that require communication between the performing entity and the patient following Patient Test Result Information Act ([place] ACT 112) guidelines. Electronically signed by Jesse Whitney 01-14-2025 4:59 PM
--- NOTE | 2025-01-14 17:04 | CT Scan Report ---
Technique: Axial computed tomography images were obtained of the lumbar spine without intravenous contrast. Sagittal and coronal reconstructions were obtained Comparison is made to the CT of the abdomen and pelvis dated 11/22/2024 Findings: There is a worsened T12 compression fracture. There is now near complete loss of vertebral body height. There is up to 3 mm of retropulsion of bone into the spinal canal. No other fracture is identified. There is scoliosis. There is unchanged grade 1 anterolisthesis at L5-S1 due to L5 pars defects. No focal osseous lesion is evident. There is no definite sign of osteomyelitis At L1-2, there is a mild disc bulge. There is no spinal stenosis. The neural foramen are patent At L2-3, there is a disc bulge without spinal stenosis. There is mild bilateral neural foramen narrowing At L3-4, there is a disc bulge without spinal stenosis. There is mild bilateral neural foramen narrowing At L4-5, there is a disc bulge without spinal stenosis. There is mild bilateral neural foramen narrowing At L5-S1, there is a disc bulge without spinal stenosis. There is right neural foramen narrowing that may affect the right L5 nerve root. There is facet osteoarthritis Impression: 1. Severe T12 compression fracture, worsened since the prior study 2. Scoliosis 3. Unchanged anterolisthesis at L5-S1 due to L5 pars defects 4. Lumbar disc bulges without spinal stenosis 5. Right L5-S1 neural foramen narrowing that may affect the right L5 nerve root. Less severe neural foramen narrowing is seen at other levels Electronically signed by Jesse Whitney 01-14-2025 5:03 PM
[2025-01-14 18:11] LABS: Hematocrit (blood only) 35.7 % (37.0-47.0); Hemoglobin 11.8 g/dl (12.0-16.0); Immature Granulocytes # (auto) 0.04 K/uL (0.01-0.20); Immature Granulocytes % (auto) 0.4 %; Mean Corpuscular Hemoglobin 28.8 pg (25.0-34.0); Mean Corpuscular Volume 87.1 fL (80.0-100.0); Platelet Count 190 K/uL (130-400); RDW Standard Deviation 49.5 fL (36.4-46.3); Red Blood Count 4.10 M/uL (4.20-5.40); White Blood Count 11.16 K/ul (4.8-10.8)
[2025-01-14 18:51] LABS: Alanine Aminotransferase 12 U/L (7-52); Albumin Globulin Ratio 1.2 (0.9-2); Albumin Level 3.7 gm/dl (3.4-5.0); Alkaline Phosphatase 104 U/L (34-104); Anion Gap 7 (3-11); Bilirubin,Total 0.7 mg/dl (0.2-1.0); Blood Urea Nitrogen 23 mg/dl (6-23); Calcium 9.3 mg/dl (8.6-10.3); Carbon Dioxide 27 mmol/L (21-32); Chloride 103 mmol/L (98-107); Globulin 3.1 gm/dl (2.5-4.0); Glucose 100 mg/dl (70-99(Fasting)); Lipase 21 U/L (11-82); Potassium 3.4 mmol/L (3.5-5.1); Sodium 137 mmol/L (136-145); Total Protein 6.8 gm/dl (6.0-8.3)
[2025-01-14 19:14] LABS: Appearance Urine Clear (Clear); Bacteria Urine Automated None Seen (None Seen); Cast Urine Automated 0-2 /lpf (0-2); Epithelial Cell Urine Auto 0-2 /hpf (0-2); Glucose Urine UA Negative (Negative); RBC Urine Automated 0-2 /hpf (0-2); WBC Urine Automated 0-5 /hpf (0-5)
[2025-01-14] MEDS: ACETAMINOPHEN 1,000 MG/100 ML VIAL IV STA (20:11)
[2025-01-14] MEDS ORDERED: PROMETHAZINE 6.25 MG/50.25 ML BAG IV PRN (21:19)
--- NOTE | 2025-01-14 21:26 | History & Physical Report ---
Date of Service January 14, 2025 Assessment & Plan (1) T12 compression fracture: Plan: Assessment and plan below following discussion of case with ED provider and reviewing patient history/pertinent normal/abnormal diagnostic test results. Worsening back pain Progressive T12 compression fracture on imaging SSS status post PPM nonocclusive CAD as per records/history of CVA hypertension, stable hyperlipidemia, on diuretic Rx chronic respiratory failure secondary to bronchiectasis on home O2, lung status at baseline CRI, creatinine at baseline hypothyroidism, euthyroid as of recent outpatient TSH Chronic tremors mild cognitive impairment, patient mentating well Hypokalemia secondary to diuretic Rx Mild anemia, new onset, no overt bleed Admit to [facility] Reconsult Orthopedic spine service for worsening pain secondary to progressive T12 compression fracture Hold antiplatelet Rx until patient evaluated by specialist Replace potassium Anemia workup DVT prophylaxis. SCDs Re: Possible procedure Full code Patient requesting for daughter to be given updates regarding care. Ms. Carolyn Bah, contact #[phone]. Text document was generated using [employer] voice recognition software. It may contain grammatical or spelling errors. Kindly contact undersigned for clarification of any documentation item in question. History of Present Illness Chief Complaint: Worsening back pain Primary Care Provider: Lisa Mehta PA-C History obtained from patient and records. Medical history significant for SSS status post PPM, nonocclusive CAD as per records, hypertension, hyperlipidemia, CVA, chronic respiratory failure secondary to bronchiectasis on home O2, CRI (baseline creatinine 1.2), OA, asthma, GERD, hypothyroidism, thoracic compression fracture, history tremors, anxiety/mood disorder, mild cognitive impairment as per records. Recent confinement last month for T12 compression fracture secondary to mechanical fall. No operative intervention as per Orthopedics spine. Patient discharged to rehab where she stayed for 2 weeks before transitioning home. Shortly after returning home couple of weeks ago, patient noted worsening of mid back pain. Intermittent right leg pain worse on moving around which patient is not sure if related to back pain. No recent falls. No fever, no chills, no chest pain, no unusual SOB. No obvious bleed at home. No incontinence symptoms. Patient brought to ER for worsening symptoms. MEDICAL HISTORY: As above. SURGICAL HISTORY:PPM, breast biopsy. Ptosis surgery, blepharoplasty FAMILY HISTORY: hypertension. Heart disease, skin cancer, diabetes, tremors PERSONAL SOCIAL HISTORY: Nonsmoker. 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 Allergies Allergy/AdvReac Type Severity Reaction Status Date / Time Iodinated Contrast Media Allergy Intermediate IV dye Verified 01/14/25 18:21 -hives trolamine salicylate Allergy Mild Rash Verified 01/14/25 18:21 [From Myoflex] NSAIDS (Non-Steroidal Allergy Unknown UNKNOWN Verified 01/14/25 18:21 Anti-Inflamma primidone Allergy Unknown UNKNOWN Verified 01/14/25 18:21 sertraline Allergy Unknown UNKNOWN Verified 01/14/25 18:21 Sulfa (Sulfonamide Allergy Unknown "SULFA" Verified 01/14/25 18:21 Antibiotics) ALLERGY Home Medications Medication Instructions Recorded Confirmed Type Oxygen Home 11/27/24 11/27/24 History atorvastatin 80 mg tablet (Lipitor) 80 mg PO DAILY 11/27/24 01/14/25 History buspirone 5 mg tablet 5 mg PO BID PRN Anxiety 11/27/24 01/14/25 History clopidogrel 75 mg tablet (Plavix) 75 mg PO DAILY 11/27/24 01/14/25 History famotidine 20 mg tablet 20 mg PO DAILY 11/27/24 01/14/25 History fluticasone propionate 50 1 spray intranasal DAILY 11/27/24 01/14/25 History mcg/actuation nasal spray,suspension hydrochlorothiazide 25 mg tablet 25 mg PO .Q3DAYS 11/27/24 01/14/25 History levalbuterol tartrate 45 2 inh inhalation Q4H PRN Shortness 11/27/24 01/14/25 History mcg/actuation aerosol inhaler Of Breath Or Wheezing (Xopenex HFA) levothyroxine 50 mcg tablet 50 mcg PO DAILY 11/27/24 01/14/25 History metoprolol succinate 50 mg 50 mg PO DAILY 11/27/24 01/14/25 History tablet,extended release 24 hr omeprazole 40 mg capsule,delayed 40 mg PO DAILY 11/27/24 01/14/25 History release paroxetine HCl 20 mg tablet 20 mg PO DAILY 11/27/24 01/14/25 History umeclidinium 62.5 mcg-vilanterol 1 inh inhalation DAILY 11/27/24 01/14/25 History 25 mcg/actuation powdr for inhalation (Anoro Ellipta) amlodipine 5 mg tablet 7.5 mg (1.5 x 5 mg) PO DAILY #60 12/06/24 01/14/25 Rx tabs cyclobenzaprine 5 mg tablet 5 mg PO TID PRN muscle spasm #14 12/06/24 01/14/25 Rx tabs polyethylene glycol 3350 17 gram 17 g PO DAILY PRN constipation #30 12/06/24 01/14/25 Rx oral powder packet (Miralax) ea Past Med/Surg History Problem List (Updated 01/14/25 @ 19:26 by Baldemar Winslow M.D.) Constipation (Acute) T12 compression fracture (Acute) JUVENAL (acute kidney injury) (Acute) Back muscle spasm (Acute) COVID-19 (Acute) Abnormal chest CT History of recent stroke (Acute) CVA (cerebral vascular accident) JUVENAL (acute kidney injury) DVT prophylaxis Acute confusion (Acute) Facial paresthesia (Acute) Hand paresthesia (Acute) Acute loss of vision (Acute) Arterial branch occlusion of retina (Acute) Chronic rhinitis Sensorineural hearing loss of both ears BPPV (benign paroxysmal positional vertigo) Imbalance Dysphonia LPRD (laryngopharyngeal reflux disease) Systolic murmur Cough Dyspnea on exertion Hip pain, left Chronic rhinitis Hypothyroidism Depression Asthma CKD (chronic kidney disease), stage III Hypertension (Acute) Medical History Dysphagia Abnormal ECG Elevated troponin Pneumonia Microscopic hematuria Shoulder pain, left Anxiety and depression Elevated troponin Chest discomfort Pneumonia Weakness of voice Dyspnea on exertion Chronic cough Bronchiectasis Vitamin D deficiency TIA (transient ischemic attack) Changes in vision Encounter for pre-operative examination GI bleed 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 Pacemaker SSS (sick sinus syndrome) CAD (coronary artery disease) Essential tremor Abnormal urinalysis Acute anemia Multifocal pneumonia Weakness Anemia Hypoxic Bronchiectasis with (acute) exacerbation SOB (shortness of breath) Weakness Hypercholesterolemia Osteoporosis Secondary hyperparathyroidism GERD (gastroesophageal reflux disease) Heart block Vitamin D deficiency Surgical History Hx of blepharoplasty Hx of repair of rotator cuff Hx of tonsillectomy History of breast lump removal Family History Father Hypertension Heart disease Mother Hypertension Asthma Other Cancer Diabetes Kidney disease Lung disease No family history of adverse response to anesthesia No family history of bleeding disorder Social History Smoking Status: Never smoker Second Hand Exposure: No; Do You Dip or Chew Tobacco: No; Hx Alcohol Use: No Hx Substance Use: No Preferred Language: Estonian Communication Ability: Effective Warning Analyst Required: No Beliefs That Will Affect Care: None marital status: / Current Living Situation: Personal Care Facility Current Living Situation Comment: Apartment ([facility]) current occupational status: retired Feels Safe at Home: Yes Safety Concerns: Feels Safe At This Time Assistive Devices: Glasses, Oxygen - at Night and Walker Review of Systems Review of Systems: As per HPI, all other systems reviewed and negative Physical Exam Physical Exam: GENERAL: Comfortable, pleasant, looks younger for stated age, no respiratory distress SKIN: Normal color, warm HEENT: Mutual palpebral conjunctivae, no ptosis, dry buccal mucosa, nasal cannula in place NECK : Supple, short neck CHEST : CTA, no tenderness BACK : Mid back tenderness HEART : RRR, no obvious murmurs ABDOMEN: Some distention, nontender EXTREMITIES : No LE swelling/tenderness, no other conspicuous deformities noted NEUROLOGIC : Coherent, no facial asymmetry, chronic rest tremors, no other gross focality Results & Data Results & Data Vital Signs (Past 12 Hours) Vital Signs Temp Pulse Pulse Resp BP BP Pulse Ox 01/14/25 20:32 65 01/14/25 20:16 42 L 15 148/82 H 97 01/14/25 18:00 69 18 163/61 H 93 01/14/25 14:32 36.9 C 74 18 144/77 H 96 O2 Del Method 01/14/25 20:32 01/14/25 20:16 Room Air 01/14/25 18:00 Room Air 01/14/25 14:32 Room Air Laboratory Results Laboratory Results WBC 11.16 K/ul (4.8-10.8) H 01/14/25 17:46 RBC 4.10 M/uL (4.20-5.40) L 01/14/25 17:46 Hgb 11.8 g/dl (12.0-16.0) L 01/14/25 17:46 Hct 35.7 % (37.0-47.0) L 01/14/25 17:46 MCV 87.1 fL (80.0-100.0) 01/14/25 17:46 MCH 28.8 pg (25.0-34.0) 01/14/25 17:46 MCHC 33.1 g/dL (32.0-36.0) 01/14/25 17:46 RDW Std Deviation 49.5 fL (36.4-46.3) H 01/14/25 17:46 RDW Coeff of Lakshmi 15.5 % (11.5-14.5) H 01/14/25 17:46 Plt Count 190 K/uL (130-400) 01/14/25 17:46 MPV 10.3 fL (9.4-12.4) 01/14/25 17:46 Immature Gran % (Auto) 0.4 % 01/14/25 17:46 Neut % (Auto) 76.8 % 01/14/25 17:46 Lymph % (Auto) 11.6 % 01/14/25 17:46 [place] % (Auto) 9.4 % 01/14/25 17:46 Eos % (Auto) 1.5 % 01/14/25 17:46 Baso % (Auto) 0.3 % 01/14/25 17:46 Neut # (Auto) 8.58 K/uL (1.40-6.50) H 01/14/25 17:46 Lymph # (Auto) 1.29 K/uL (1.20-3.40) 01/14/25 17:46 [place] # (Auto) 1.05 K/uL (0.11-0.59) H 01/14/25 17:46 Eos # (Auto) 0.17 K/uL (0.00-0.50) 01/14/25 17:46 Baso # (Auto) 0.03 K/uL (0.00-0.20) 01/14/25 17:46 Immature Gran # (Auto) 0.04 K/uL (0.01-0.20) 01/14/25 17:46 Sodium 137 mmol/L (136-145) 01/14/25 17:46 Potassium 3.4 mmol/L (3.5-5.1) L 01/14/25 17:46 Chloride 103 mmol/L (98-107) 01/14/25 17:46 Carbon Dioxide 27 mmol/L (21-32) 01/14/25 17:46 Anion Gap 7 (3-11) 01/14/25 17:46 BUN 23 mg/dl (6-23) 01/14/25 17:46 Creatinine 1.05 mg/dl (0.6-1.2) 01/14/25 17:46 Est Cr Clr Drug Dosing Not Reportable 01/14/25 17:46 eGFR 51.42 01/14/25 17:46 BUN/Creatinine Ratio 21.9 (10-20) H 01/14/25 17:46 Glucose 100 mg/dl (70-99(Fasting)) H 01/14/25 17:46 Calcium 9.3 mg/dl (8.6-10.3) 01/14/25 17:46 Total Bilirubin 0.7 mg/dl (0.2-1.0) 01/14/25 17:46 AST 15 U/L (13-39) 01/14/25 17:46 ALT 12 U/L (7-52) 01/14/25 17:46 Alkaline Phosphatase 104 U/L (34-104) 01/14/25 17:46 Total Protein 6.8 gm/dl (6.0-8.3) 01/14/25 17:46 Albumin 3.7 gm/dl (3.4-5.0) 01/14/25 17:46 Globulin 3.1 gm/dl (2.5-4.0) 01/14/25 17:46 Albumin/Globulin Ratio 1.2 (0.9-2) 01/14/25 17:46 Lipase 21 U/L (11-82) 01/14/25 17:46 Urine Color Yellow 01/14/25 18:53 Urine Appearance Clear (Clear) 01/14/25 18:53 Urine pH 6.5 (4.5-7.5) 01/14/25 18:53 Ur Specific [place] 1.018 (1.000-1.030) 01/14/25 18:53 Urine Protein Negative (Negative) 01/14/25 18:53 Urine Glucose (UA) Negative (Negative) 01/14/25 18:53 Urine Ketones Trace (Negative) H 01/14/25 18:53 Urine Blood Negative (Negative) 01/14/25 18:53 Urine Nitrite Negative (Negative) 01/14/25 18:53 Urine Bilirubin Negative (Negative) 01/14/25 18:53 Urine Urobilinogen Negative (Negative) 01/14/25 18:53 Ur Leukocyte Esterase Trace (Negative) H 01/14/25 18:53 Urine WBC (Auto) 0-5 /hpf (0-5) 01/14/25 18:53 Urine RBC (Auto) 0-2 /hpf (0-2) 01/14/25 18:53 U Hyaline Cast (Auto) 0-2 /lpf (0-2) 01/14/25 18:53 U Epithel Cells (Auto) 0-2 /hpf (0-2) 01/14/25 18:53 Urine Bacteria (Auto) None Seen (None Seen) 01/14/25 18:53 Urine Comment 01/14/25 18:53 Impressions Abdomen/Pelvis CT 01/14/25 16:08 Clinical History: Abdominal pain Technique: Axial computed tomography images were obtained of the abdomen and pelvis without intravenous contrast. Comparison is made to the prior CT dated 11/22/2024 Findings: The liver is overall of normal size, attenuation, and contour with no sign of cirrhosis or significant fatty infiltration. No definite liver mass lesion is seen on this noncontrast study. There is a small gallstone. There is no sign of acute cholecystitis. No bile duct dilatation is noted. The spleen is of normal size. No focal splenic lesion is evident. The pancreas appears normal with no sign of acute or chronic pancreatitis and no mass lesion noted. The pancreatic duct is of normal caliber. The adrenal glands appear unremarkable. No renal or proximal ureteral calculi are seen. There is no hydronephrosis or perinephric stranding. No definite renal mass lesion is identified. The aorta is of normal caliber. No abdominal adenopathy is seen. There is an unchanged moderate sized hiatal hernia. There is no sign of small bowel obstruction. There is mild diverticulosis without evidence of diverticulitis. No free intraperitoneal fluid or air is identified. No distal ureteral or bladder calculi are seen. No obvious bladder mass lesion is evident. The iliac arteries are of normal caliber. No pelvic adenopathy is noted. There is mild atelectasis or scar in the right middle lobe and lingula. There is a worsened T12 compression fracture. There is now near complete loss of vertebral body height. There is unchanged grade 1 anterolisthesis at L5-S1 due to L5 pars defects. There is left worse than right hip osteoarthritis Impression: 1. Severe T12 compression fracture, worsened since the prior study 2. Unchanged moderate sized hiatal hernia 3. Cholelithiasis without evidence of acute cholecystitis 4. Mild diverticulosis without evidence of diverticulitis ACT 112: Positive. There are findings on this exam that require communication between the performing entity and the patient following Patient Test Result Information Act ([place] ACT 112) guidelines. Electronically signed by Jesse Whitney 01-14-2025 4:[address] 01/14/25 16:08 Technique: Axial computed tomography images were obtained of the lumbar spine without intravenous contrast. Sagittal and coronal reconstructions were obtained Comparison is made to the CT of the abdomen and pelvis dated 11/22/2024 Findings: There is a worsened T12 compression fracture. There is now near complete loss of vertebral body height. There is up to 3 mm of retropulsion of bone into the spinal canal. No other fracture is identified. There is scoliosis. There is unchanged grade 1 anterolisthesis at L5-S1 due to L5 pars defects. No focal osseous lesion is evident. There is no definite sign of osteomyelitis At L1-2, there is a mild disc bulge. There is no spinal stenosis. The neural foramen are patent At L2-3, there is a disc bulge without spinal stenosis. There is mild bilateral neural foramen narrowing At L3-4, there is a disc bulge without spinal stenosis. There is mild bilateral neural foramen narrowing At L4-5, there is a disc bulge without spinal stenosis. There is mild bilateral neural foramen narrowing At L5-S1, there is a disc bulge without spinal stenosis. There is right neural foramen narrowing that may affect the right L5 nerve root. There is facet osteoarthritis Impression: 1. Severe T12 compression fracture, worsened since the prior study 2. Scoliosis 3. Unchanged anterolisthesis at L5-S1 due to L5 pars defects 4. Lumbar disc bulges without spinal stenosis 5. Right L5-S1 neural foramen narrowing that may affect the right L5 nerve root. Less severe neural foramen narrowing is seen at other levels Electronically signed by Jesse Whitney 01-14-2025 5:03 PM (1) T12 compression fracture Encounter type: subsequent encounter Fracture healing: with nonunion Qualified Code(s): S22.080K - Wedge compression fracture of T11-T12 vertebra, subsequent encounter for fracture with nonunion
[2025-01-14 21:39] LABS: Magnesium 1.9 mg/dl (1.7-2.4)
[2025-01-14] MEDS ORDERED: POLYETHYLENE (MIRALAX) 17 GM PACK PO PRN (22:09)
[2025-01-14] MEDS: POTASSIUM CHLORIDE CRTAB 20 MEQ TABCR PO STA (22:20)
[2025-01-14] MEDS: LIDOCAINE 5% 1 PATCH TD SCH (22:20)
[2025-01-15 07:28] LABS: Hematocrit (blood only) 34.4 % (37.0-47.0); Hemoglobin 11.6 g/dl (12.0-16.0); Immature Granulocytes # (auto) 0.02 K/uL (0.01-0.20); Immature Granulocytes % (auto) 0.3 %; Mean Corpuscular Hemoglobin 29.7 pg (25.0-34.0); Mean Corpuscular Volume 88.0 fL (80.0-100.0); Platelet Count 177 K/uL (130-400); RDW Standard Deviation 50.5 fL (36.4-46.3); Red Blood Count 3.91 M/uL (4.20-5.40); Reticulocytes # 0.050 10^6/uL (0.020-0.100); White Blood Count 7.76 K/ul (4.8-10.8)
[2025-01-15 07:54] LABS: Anion Gap 7.0 (3-11); Blood Urea Nitrogen 22.0 mg/dl (6-23); Calcium 8.9 mg/dl (8.6-10.3); Carbon Dioxide 27.0 mmol/L (21-32); Chloride 104.0 mmol/L (98-107); Creatinine Clr Calc Pharmacy 31.1 ml/min; Glucose 103.0 mg/dl (70-99(Fasting)); Iron 53.0 mcg/dl (35-150); Potassium 4.1 mmol/L (3.5-5.1); Sodium 138.0 mmol/L (136-145); Transferrin 242.0 mg/dl (200-360)
[2025-01-15 08:10] LABS: Ferritin 43.6 ng/ml (8-388)
[2025-01-15 08:11] LABS: Folate (Folic Acid),Ser orPlas 15.55 ng/ml (>5.38)
[2025-01-15 08:12] LABS: Vitamin B12 305.0 pg/ml (180-914)
[2025-01-15] MEDS: FLUTICASONE PROPIONATE NA SPR 16 GM BTL SCH (08:14)
[2025-01-15] MEDS: busPIRone 5 MG TAB PO PRN (08:17)
[2025-01-15] MEDS: UMECLIDINIUM/VILANTEROL 62.5/25MCG 7 PUFFS/INHALER INH SCH (08:19)
[2025-01-15] MEDS: DOCUSATE SODIUM/SENNA 50/8.6MG TAB PO SCH (08:27)
[2025-01-15] MEDS: FAMOTIDINE 20 MG TAB PO SCH (08:27)
[2025-01-15] MEDS: METOPROLOL SUCC 50MG EXT REL TAB PO SCH (08:28)
[2025-01-15] MEDS: REMOVE LIDODERM PATCH SCH (08:28)
[2025-01-15] MEDS: ATORVASTATIN 40 MG TAB PO SCH (08:31)
--- NOTE | 2025-01-15 09:49 | Consultation ---
Date of Consultation January 15, 2025 Assessment & Plan (1) T12 compression fracture: Dr Cooney and I have reviewed her imaging and treatment plan. She is now roughly 6 weeks s/p mechanical fall resulting in T12 compression fracture. I have discussed both surgical and nonsurgical options. Nonsurgical option includes continued use of TLSo, pain control, consideration of lumbar injection for chronic issue (L5 pars defect/spondylolisthesis). Surgical option includes T12 kyphoplasty. Risks of this procedure have been reviewed with Luh. She does not want to pursue surgery right now. History of Present Illness Reason for Consultation: re-evaluation T12 compression fx Attending Physician: Honey Rocha MD History of Present Illness This is a pleasant 89yo female that we saw on 11/27/24 s/p mechanical fall that resulted in a T12 compression fracture. She was given a TLSO brace at that time which she reports she still wears when outside of the home. Initially she went to a rehab facility upon hospital discharge and has been living with her sisters. She currently reports lower back pain with certain movements. This pain is a 'soreness' and momentary. She has been taking Oxycodone at night for pain. SHe also states she has newer right groin/anterior thigh pain. She has been ambulating with a walker. Allergies Allergy/AdvReac Type Severity Reaction Status Date / Time Iodinated Contrast Media Allergy Intermediate IV dye Verified 01/14/25 18:21 -hives trolamine salicylate Allergy Mild Rash Verified 01/14/25 18:21 [From Myoflex] NSAIDS (Non-Steroidal Allergy Unknown UNKNOWN Verified 01/14/25 18:21 Anti-Inflamma primidone Allergy Unknown UNKNOWN Verified 01/14/25 18:21 sertraline Allergy Unknown UNKNOWN Verified 01/14/25 18:21 Sulfa (Sulfonamide Allergy Unknown "SULFA" Verified 01/14/25 18:21 Antibiotics) ALLERGY Home Medications Medication Instructions Recorded Confirmed Type Oxygen Home 11/27/24 11/27/24 History atorvastatin 80 mg tablet (Lipitor) 80 mg PO DAILY 11/27/24 01/14/25 History buspirone 5 mg tablet 5 mg PO BID PRN Anxiety 11/27/24 01/14/25 History clopidogrel 75 mg tablet (Plavix) 75 mg PO DAILY 11/27/24 01/14/25 History famotidine 20 mg tablet 20 mg PO DAILY 11/27/24 01/14/25 History fluticasone propionate 50 1 spray intranasal DAILY 11/27/24 01/14/25 History mcg/actuation nasal spray,suspension hydrochlorothiazide 25 mg tablet 25 mg PO .Q3DAYS 11/27/24 01/14/25 History levalbuterol tartrate 45 2 inh inhalation Q4H PRN Shortness 11/27/24 01/14/25 History mcg/actuation aerosol inhaler Of Breath Or Wheezing (Xopenex HFA) levothyroxine 50 mcg tablet 50 mcg PO DAILY 11/27/24 01/14/25 History metoprolol succinate 50 mg 50 mg PO DAILY 11/27/24 01/14/25 History tablet,extended release 24 hr omeprazole 40 mg capsule,delayed 40 mg PO DAILY 11/27/24 01/14/25 History release paroxetine HCl 20 mg tablet 20 mg PO DAILY 11/27/24 01/14/25 History umeclidinium 62.5 mcg-vilanterol 1 inh inhalation DAILY 11/27/24 01/14/25 History 25 mcg/actuation powdr for inhalation (Anoro Ellipta) amlodipine 5 mg tablet 7.5 mg (1.5 x 5 mg) PO DAILY #60 12/06/24 01/14/25 Rx tabs cyclobenzaprine 5 mg tablet 5 mg PO TID PRN muscle spasm #14 12/06/24 01/14/25 Rx tabs polyethylene glycol 3350 17 gram 17 g PO DAILY PRN constipation #30 12/06/24 01/14/25 Rx oral powder packet (Miralax) ea Patient History Medical History Dysphagia Abnormal ECG Elevated troponin Pneumonia Microscopic hematuria Shoulder pain, left Anxiety and depression Elevated troponin Chest discomfort Pneumonia Weakness of voice Dyspnea on exertion Chronic cough Bronchiectasis Vitamin D deficiency TIA (transient ischemic attack) Changes in vision Encounter for pre-operative examination GI bleed 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 Pacemaker SSS (sick sinus syndrome) CAD (coronary artery disease) Essential tremor Abnormal urinalysis Acute anemia Multifocal pneumonia Weakness Anemia Hypoxic Bronchiectasis with (acute) exacerbation SOB (shortness of breath) Weakness Hypercholesterolemia Osteoporosis Secondary hyperparathyroidism GERD (gastroesophageal reflux disease) Heart block Vitamin D deficiency Surgical History Hx of blepharoplasty Hx of repair of rotator cuff Hx of tonsillectomy History of breast lump removal Family History Father Hypertension Heart disease Mother Hypertension Asthma Other Cancer Diabetes Kidney disease Lung disease No family history of adverse response to anesthesia No family history of bleeding disorder Social History Smoking Status: Never smoker Second Hand Exposure: No; Do You Dip or Chew Tobacco: No; Hx Alcohol Use: No Hx Substance Use: No Preferred Language: Italian Communication Ability: Effective Bundle Sorter Required: No Beliefs That Will Affect Care: None marital status: / Current Living Situation: Personal Care Facility Current Living Situation Comment: Apartment ([facility]) current occupational status: retired Feels Safe at Home: Yes Safety Concerns: Feels Safe At This Time Assistive Devices: Walker Review of Systems Review of Systems: All systems reviewed & are unremarkable except as noted in HPI & below Physical Exam Physical Exam: She is resting in bed but easily arousable A&Ox3 + log roll RIGHT negative tension signs 5/5 B/L LE strength Results & Data Vital Signs (Past 12 Hours) Vital Signs Temp Pulse Resp BP Pulse Ox O2 Del Method O2 Flow Rate 01/15/25 07:20 36.9 C 58 L 16 131/71 97 Room Air 01/14/25 23:25 Room Air, Nasal Cannula 01/14/25 23:25 36.4 C L 63 18 144/59 H 92 Room Air 01/14/25 22:35 Room Air 01/14/25 22:01 78 16 148/82 H 96 Nasal Cannula 2 Diagnostic Findings [place], [place] [phone] CT Scan Report Patient: LUH RANGEL Admit Date: 01/14/25 MR#: [id number] Address1: [address] Acct ID:[id number] Address2: [address] Date: 1935 [facility] Zip: [place] [address] Age: 89 Location: ED Sex: F Room/Bed: Att Phy: Diagnosis: BACK PAIN Marixa Phy: Rine, Lisa A., PA-C Service Date: 01/14/25 [facility] Phy: Interpreting Phy: Jesse Whitney MDAdmit Phy: Ordering Phy: Baldemar Winslow M.D. cc: ~ Technique: Axial computed tomography images were obtained of the lumbar spine without intravenous contrast. Sagittal and coronal reconstructions were obtained Comparison is made to the CT of the abdomen and pelvis dated 11/22/2024 Findings: There is a worsened T12 compression fracture. There is now near complete loss of vertebral body height. There is up to 3 mm of retropulsion of bone into the spinal canal. No other fracture is identified. There is scoliosis. There is unchanged grade 1 anterolisthesis at L5-S1 due to L5 pars defects. No focal osseous lesion is evident. There is no definite sign of osteomyelitis At L1-2, there is a mild disc bulge. There is no spinal stenosis. The neural foramen are patent At L2-3, there is a disc bulge without spinal stenosis. There is mild bilateral neural foramen narrowing At L3-4, there is a disc bulge without spinal stenosis. There is mild bilateral neural foramen narrowing At L4-5, there is a disc bulge without spinal stenosis. There is mild bilateral neural foramen narrowing At L5-S1, there is a disc bulge without spinal stenosis. There is right neural foramen narrowing that may affect the right L5 nerve root. There is facet osteoarthritis Impression: 1. Severe T12 compression fracture, worsened since the prior study 2. Scoliosis 3. Unchanged anterolisthesis at L5-S1 due to L5 pars defects 4. Lumbar disc bulges without spinal stenosis 5. Right L5-S1 neural foramen narrowing that may affect the right L5 nerve root. Less severe neural foramen narrowing is seen at other levels Electronically signed by Jesse Whitney 01-14-2025 5:03 PM Dictated: 01/14/25 8811 Transcribed: [place], [place] [phone] CT Scan Report Patient: LUH RANGEL Admit Date: 01/14/25 MR#: [id number] Address1: [address] Acct ID:[id number] Address2: [facility] [address] Date: 1935 [facility] Zip: [place] [address] Age: 89 Location: ED Sex: F Room/Bed: Att Phy: Diagnosis: BACK PAIN Marixa Phy: Lisa Mehta PA-C Service Date: 01/14/25 [facility] Phy: Interpreting Phy: Jesse Whitney MDAdmit Phy: Ordering Phy: Baldemar Winslow M.D. cc: ~ Clinical History: Abdominal pain Technique: Axial computed tomography images were obtained of the abdomen and pelvis without intravenous contrast. Comparison is made to the prior CT dated 11/22/2024 Findings: The liver is overall of normal size, attenuation, and contour with no sign of cirrhosis or significant fatty infiltration. No definite liver mass lesion is seen on this noncontrast study. There is a small gallstone. There is no sign of acute cholecystitis. No bile duct dilatation is noted. The spleen is of normal size. No focal splenic lesion is evident. The pancreas appears normal with no sign of acute or chronic pancreatitis and no mass lesion noted. The pancreatic duct is of normal caliber. The adrenal glands appear unremarkable. No renal or proximal ureteral calculi are seen. There is no hydronephrosis or perinephric stranding. No definite renal mass lesion is identified. The aorta is of normal caliber. No abdominal adenopathy is seen. There is an unchanged moderate sized hiatal hernia. There is no sign of small bowel obstruction. There is mild diverticulosis without evidence of diverticulitis. No free intraperitoneal fluid or air is identified. No distal ureteral or bladder calculi are seen. No obvious bladder mass lesion is evident. The iliac arteries are of normal caliber. No pelvic adenopathy is noted. There is mild atelectasis or scar in the right middle lobe and lingula. There is a worsened T12 compression fracture. There is now near complete loss of vertebral body height. There is unchanged grade 1 anterolisthesis at L5-S1 due to L5 pars defects. There is left worse than right hip osteoarthritis Impression: 1. Severe T12 compression fracture, worsened since the prior study 2. Unchanged moderate sized hiatal hernia 3. Cholelithiasis without evidence of acute cholecystitis 4. Mild diverticulosis without evidence of diverticulitis ACT 112: Positive. There are findings on this exam that require communication between the performing entity and the patient following Patient Test Result Information Act ([place] ACT 112) guidelines. Electronically signed by Jesse Whitney 01-14-2025 4:59 PM Dictated: 01/14/25 1627 Transcribed: (1) T12 compression fracture Encounter type: subsequent encounter Fracture healing: with nonunion Qualified Code(s): S22.080K - Wedge compression fracture of T11-T12 vertebra, subsequent encounter for fracture with nonunion
--- NOTE | 2025-01-15 10:13 | Hospitalist Progress Note ---
Date of Service January 15, 2025 Assessment & Plan (1) T12 compression fracture: Plan: 89-year-old woman with history of SSS status post PPM, nonocclusive CAD as per records, hypertension, hyperlipidemia, CVA, chronic respiratory failure secondary to bronchiectasis on home O2, CRI (baseline creatinine 1.2), OA, asthma, GERD, hypothyroidism, thoracic compression fracture, history tremors, anxiety/mood disorder, mild cognitive impairment as per records, recent hospitalization last month for T12 compression fracture secondary to mechanical fall, presents with worsening back pain and intermittent right leg pain. Worsening back pain Lumbar CT noted severe T12 compression fracture worsened since prior study, right L5-S1 neuroforaminal narrowing affecting the right L5 nerve root. Continue pain control. 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 SCDs Re: Possible procedure Full code Ms. Carolyn Bah(Daughter), contact #[phone]. I spent a total of 50 minutes coordinating, documenting and providing care for this patient excluding time spent in performance of separately billed services Admission and Anticipated Discharge Date Admission Date: January 14, 2025 Subjective Patient seen and examined Reports back pain and Right thigh pain, stabbing in nature associated with worsening ambulatory dysfunction. Reports some coughing but no shortness of breath. Denies chest pain, nausea, vomiting abdominal pain, fever Physical Exam Constitutional: + well hydrated; no acute distress Eyes: PERRL, conjunctivae normal, anicteric sclerae ENMT: external ear and nose normal, oropharynx normal Respiratory: normal respiratory effort, lungs clear to auscultation Cardiovascular: Rate/Rhythm: regular rate and regular rhythm Gastrointestinal (Abdomen): normal bowel sounds, soft, nontender, no hepatosplenomegaly Musculoskeletal: No pedal edema Neurologic: PERRL, EOMI, accommodation nl, no face palsy, no dysarthria Psychiatric: A+Ox3, euthymic affect Results & Data Results & Data Vital Signs (Past 12 Hours) Vital Signs Temp Pulse Resp BP Pulse Ox O2 Del Method 01/15/25 07:20 36.9 C 58 L 16 131/71 97 Room Air 01/14/25 23:25 Room Air, Nasal Cannula 01/14/25 23:25 36.4 C L 63 18 144/59 H 92 Room Air 01/14/25 22:35 Room Air Laboratory Results Abnormal lab results 01/14/25 01/14/25 01/15/25 Range/Units 17:46 18:53 06:50 WBC 11.16 H (4.8-10.8) K/ul RBC 4.10 L 3.91 L (4.20-5.40) M/uL Hgb 11.8 L 11.6 L (12.0-16.0) g/dl Hct 35.7 L 34.4 L (37.0-47.0) % RDW Std Deviation 49.5 H 50.5 H (36.4-46.3) fL RDW Coeff of Lakshmi 15.5 H 15.6 H (11.5-14.5) % Neut # (Auto) 8.58 H (1.40-6.50) K/uL [place]bach # (Auto) 1.05 H 0.95 H (0.11-0.59) K/uL Potassium 3.4 L (3.5-5.1) mmol/L BUN/Creatinine Ratio 21.9 H 20.2 H (10-20) Glucose 100 H 103 H (70-99(Fasting)) mg/dl Urine Ketones Trace H (Negative) Ur Leukocyte Esterase Trace H (Negative) (1) T12 compression fracture Encounter type: subsequent encounter Fracture healing: with nonunion Qualified Code(s): S22.080K - Wedge compression fracture of T11-T12 vertebra, subsequent encounter for fracture with nonunion
[2025-01-16 06:08] LABS: Hematocrit (blood only) 31.7 % (37.0-47.0); Hemoglobin 10.9 g/dl (12.0-16.0); Mean Corpuscular Hemoglobin 29.7 pg (25.0-34.0); Mean Corpuscular Volume 86.4 fL (80.0-100.0); Platelet Count 184 K/uL (130-400); RDW Standard Deviation 48.7 fL (36.4-46.3); Red Blood Count 3.67 M/uL (4.20-5.40); White Blood Count 9.79 K/ul (4.8-10.8)
[2025-01-16 06:31] LABS: Anion Gap 7.0 (3-11); Blood Urea Nitrogen 23.0 mg/dl (6-23); Calcium 8.8 mg/dl (8.6-10.3); Carbon Dioxide 25.0 mmol/L (21-32); Chloride 105.0 mmol/L (98-107); Creatinine Clr Calc Pharmacy 34.2 ml/min; Glucose 114.0 mg/dl (70-99(Fasting)); Potassium 3.8 mmol/L (3.5-5.1); Sodium 137.0 mmol/L (136-145)
[2025-01-16] MEDS: IPRATROPIUM BROMIDE NEB SOLN 0.02% 0.5MG/2.5ML VIAL INH PRN (09:26)
[2025-01-16] MEDS: LEVALBUTEROL 1.25 MG/3 ML NEB NEB PRN (09:26)
--- NOTE | 2025-01-16 10:01 | Hospitalist Progress Note ---
Date of Service January 16, 2025 Assessment & Plan (1) T12 compression fracture: Plan: 89-year-old woman with history of SSS status post PPM, nonocclusive CAD as per records, hypertension, hyperlipidemia, CVA, chronic respiratory failure secondary to bronchiectasis on home O2, CRI (baseline creatinine 1.2), OA, asthma, GERD, hypothyroidism, thoracic compression fracture, history tremors, anxiety/mood disorder, mild cognitive impairment as per records, recent hospitalization last month for T12 compression fracture secondary to mechanical fall, presents with worsening back pain and intermittent right leg pain. Worsening back pain Lumbar CT noted severe T12 compression fracture worsened since prior study, right L5-S1 neuroforaminal narrowing affecting the right L5 nerve root. Continue pain control. PT/OT evaluation - rehab recommended Ortho eval noted SSS status post PPM History of CAD History of CVA Continue metoprolol succinate, plavix and statin Hypertension Continue amlodipine, HCTZ Hypothyroidism Continue levothyroxine Bronchiectasis Moderate persistent asthma Reports she uses oxygen at 2L usually at night RN advised to get respiratory to provide neb treatment DVT prophylaxis. SCDs Full code Ms. Carolyn Bah(Daughter), contact #[phone]. I spent a total of 35 minutes coordinating, documenting and providing care for this patient excluding time spent in performance of separately billed services Admission and Anticipated Discharge Date Admission Date: January 14, 2025 Subjective Patient seen and examined Reports low back pain is a bit better today Reports increased cough this AM No other new complaints Physical Exam Constitutional: + well hydrated; no acute distress Eyes: PERRL, conjunctivae normal, anicteric sclerae ENMT: external ear and nose normal, oropharynx normal Respiratory: On nasal cannula, generalized wheezing Cardiovascular: Rate/Rhythm: regular rate and regular rhythm Gastrointestinal (Abdomen): normal bowel sounds, soft, nontender, no hepatosplenomegaly Musculoskeletal: No pedal edema Neurologic: PERRL, EOMI, accommodation nl, no face palsy, no dysarthria Psychiatric: A+Ox3, euthymic affect Results & Data Results & Data Vital Signs (Past 12 Hours) Vital Signs Temp Pulse Resp BP Pulse Ox O2 Del Method O2 Flow Rate 01/16/25 07:52 36.6 C 74 16 145/68 H 93 Nasal Cannula 2 01/15/25 22:17 37.2 C 78 18 158/70 H 91 Room Air Laboratory Results Abnormal lab results 10/23/25 Range/Units 05:51 RBC 3.67 L (4.20-5.40) M/uL Hgb 10.9 L (12.0-16.0) g/dl Hct 31.7 L (37.0-47.0) % RDW Std Deviation 48.7 H (36.4-46.3) fL RDW Coeff of Lakshmi 15.2 H (11.5-14.5) % BUN/Creatinine Ratio 23.2 H (10-20) Glucose 114 H (70-99(Fasting)) mg/dl (1) T12 compression fracture Encounter type: subsequent encounter Fracture healing: with nonunion Qualified Code(s): S22.080K - Wedge compression fracture of T11-T12 vertebra, subsequent encounter for fracture with nonunion
[2025-01-16] MEDS: CLOPIDOGREL BISULFATE 75 MG TAB PO SCH (10:58)
--- NOTE | 2025-01-17 09:48 | XRay Report ---
XR chest 1V portable HISTORY: 89 years-old Female Assess, cough/wheezing acute cough with wheezing COMPARISON: Chest CT 11/22/2024 TECHNIQUE: AP view of the chest FINDINGS: Cardiac silhouette is enlarged. Dual lead left subclavian pacer. Atherosclerosis of the aorta. Mild c hronic interstitial coarsening. No pneumothorax, pleural effusion or overt pulmonary edema. Left shou lder arthroplasty. Hiatal hernia. Degenerative changes of the right shoulder and spine. IMPRESSION: 1. No acute process of the chest. 2. Cardiomegaly with mild chronic interstitial coarsening. 3. Hiatal hernia. ACT 112: Negative or not required by law. The above report was generated using voice recognition software. It may contain grammatical, syntax o r spelling errors. Electronically signed by: Omar Nunez M.D. 01/17/2025 9:46 AM
--- NOTE | 2025-01-17 11:29 | Hospitalist Progress Note ---
Date of Service January 17, 2025 Assessment & Plan (1) T12 compression fracture: Plan: 89-year-old woman with history of SSS status post PPM, nonocclusive CAD as per records, hypertension, hyperlipidemia, CVA, chronic respiratory failure secondary to bronchiectasis on home O2, CRI (baseline creatinine 1.2), OA, asthma, GERD, hypothyroidism, thoracic compression fracture, history tremors, anxiety/mood disorder, mild cognitive impairment as per records, recent hospitalization last month for T12 compression fracture secondary to mechanical fall, presents with worsening back pain and intermittent right leg pain. Worsening back pain Lumbar CT noted severe T12 compression fracture worsened since prior study, right L5-S1 neuroforaminal narrowing affecting the right L5 nerve root. Continue pain control. Ortho eval noted. Patient does not want surgical treatment PT recommended rehab She had initially stated she does not want placement and wants to go home. 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 She stated patient may be reluctant to go to rehab. I also called and updated daughter Honey Patient stated to me this morning that she is open to going SNF/rehab CM working on safe disposition SSS status post PPM History of CAD History of CVA Continue metoprolol succinate, plavix and statin Hypertension Continue amlodipine, HCTZ Hypothyroidism Continue levothyroxine Bronchiectasis Moderate persistent asthma Reports she uses oxygen at 2L usually at night CXR does not show acute disease Continue nebs DVT prophylaxis. SCDs Full code Ms. Carolyn Bah(Daughter), contact #[phone]. I spent a total of 50 minutes coordinating, documenting and providing care for this patient excluding time spent in performance of separately billed services Admission and Anticipated Discharge Date Admission Date: January 14, 2025 Subjective Patient seen and examined Reports back pain is improving Still has some pain in her right leg Reports cough No other complaints RN noted occasional confusion/memory issues. Sister confirmed she has cognitive impairment/dementia Physical Exam Constitutional: + well hydrated; no acute distress Eyes: PERRL, conjunctivae normal, anicteric sclerae ENMT: external ear and nose normal, oropharynx normal Respiratory: normal respiratory effort, lungs clear to auscultation Cardiovascular: Rate/Rhythm: regular rate and regular rhythm Gastrointestinal (Abdomen): normal bowel sounds, soft, nontender, no hepatosplenomegaly Neurologic: PERRL, EOMI, accommodation nl, no face palsy, no dysarthria Psychiatric: A+Ox3, euthymic affect Results & Data Results & Data Vital Signs (Past 12 Hours) Vital Signs Temp Pulse Resp BP Pulse Ox O2 Del Method O2 Flow Rate 01/17/25 09:58 Room Air 01/17/25 07:44 36.6 C 73 16 161/67 H 92 Nasal Cannula 2 (1) T12 compression fracture Encounter type: subsequent encounter Fracture healing: with nonunion Qualified Code(s): S22.080K - Wedge compression fracture of T11-T12 vertebra, subsequent encounter for fracture with nonunion
[2025-01-17] MEDS: ACETAMINOPHEN 325 MG TAB PO PRN (18:11)
--- NOTE | 2025-01-18 11:18 | Discharge Summary ---
Date of Service January 18, 2025 Admission HPI Per Admitting Provider History obtained from patient and records. Medical history significant for SSS status post PPM, nonocclusive CAD as per records, hypertension, hyperlipidemia, CVA, chronic respiratory failure secondary to bronchiectasis on home O2, CRI (baseline creatinine 1.2), OA, asthma, GERD, hypothyroidism, thoracic compression fracture, history tremors, anxiety/mood disorder, mild cognitive impairment as per records. Recent confinement last month for T12 compression fracture secondary to mechanical fall. No operative intervention as per Orthopedics spine. Patient discharged to rehab where she stayed for 2 weeks before transitioning home. Shortly after returning home couple of weeks ago, patient noted worsening of mid back pain. Intermittent right leg pain worse on moving around which patient is not sure if related to back pain. No recent falls. No fever, no chills, no chest pain, no unusual SOB. No obvious bleed at home. No incontinence symptoms. Patient brought to ER for worsening symptoms. MEDICAL HISTORY: As above. SURGICAL HISTORY:PPM, breast biopsy. Ptosis surgery, blepharoplasty FAMILY HISTORY: hypertension. Heart disease, skin cancer, diabetes, tremors PERSONAL SOCIAL HISTORY: Nonsmoker. 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 Admission Exam Per Admitting Provider GENERAL: Comfortable, pleasant, looks younger for stated age, no respiratory distress SKIN: Normal color, warm HEENT: [place] palpebral conjunctivae, no ptosis, dry buccal mucosa, nasal cannula in place NECK : Supple, short neck CHEST : CTA, no tenderness BACK : Mid back tenderness HEART : RRR, no obvious murmurs ABDOMEN: Some distention, nontender EXTREMITIES : No LE swelling/tenderness, no other conspicuous deformities noted NEUROLOGIC : Coherent, no facial asymmetry, chronic rest tremors, no other gross focality Principal Diagnosis T12 compression fracture Ambulatory dysfunction Discharge Exam Constitutional + well hydrated; no acute distress Eyes PERRL, conjunctivae normal, anicteric sclerae ENMT external ear and nose normal, oropharynx normal Respiratory normal respiratory effort, lungs clear to auscultation Cardiovascular Rate/Rhythm: regular rate and regular rhythm Gastrointestinal (Abdomen) normal bowel sounds, soft, nontender, no hepatosplenomegaly Neurologic PERRL, EOMI, accommodation nl, no face palsy, no dysarthria Psychiatric A+Ox3, euthymic affect Discharge Data Allergies Allergy/AdvReac Type Severity Reaction Status Date / Time Iodinated Contrast Media Allergy Intermediate IV dye Verified 01/14/25 18:21 -mook trolamine salicylate Allergy Mild Rash Verified 01/14/25 18:21 [From Myoflex] NSAIDS (Non-Steroidal Allergy Unknown UNKNOWN Verified 01/14/25 18:21 Anti-Inflamma primidone Allergy Unknown UNKNOWN Verified 01/14/25 18:21 sertraline Allergy Unknown UNKNOWN Verified 01/14/25 18:21 Sulfa (Sulfonamide Allergy Unknown "SULFA" Verified 01/14/25 18:21 Antibiotics) ALLERGY Consultations 01/14/25 21:01 ED Decision to Admit Stat 01/14/25 22:07 Consult Orthopedic Spine Surgery Routine Ordered Studies 01/14/25 16:08 CT abd pelvis wo con Stat CT lumbar spine wo con Stat Hospital Course (1) T12 compression fracture: 89-year-old woman with history of SSS status post PPM, nonocclusive CAD as per records, hypertension, hyperlipidemia, CVA, chronic respiratory failure secondary to bronchiectasis on home O2, CRI (baseline creatinine 1.2), OA, asthma, GERD, hypothyroidism, thoracic compression fracture, history tremors, anxiety/mood disorder, mild cognitive impairment as per records, recent hospitalization last month for T12 compression fracture secondary to mechanical fall, presents with worsening back pain and intermittent right leg pain. Worsening back pain Lumbar CT noted severe T12 compression fracture worsened since prior study, right L5-S1 neuroforaminal narrowing affecting the right L5 nerve root. Continue pain control. Ortho eval noted. Patient does not want surgical treatment PT recommended rehab however patient declined Pain controlled with tylenol prn and lidocaine patch Patient discharged home to sister. CM arranged SSS status post PPM History of CAD History of CVA Continue metoprolol succinate, plavix and statin Hypertension Continue amlodipine, HCTZ Hypothyroidism Continue levothyroxine Bronchiectasis Moderate persistent asthma Reports she uses oxygen at 2L usually at night CXR does not show acute disease I called sister Carolyn and updated her Total Time Total Time Spent Total Time Spent (In Minutes): 45 Total Time Includes: Examination of the Patient, Discharge Planning, Medication Reconciliation and Other Discharge Plan Discharge Items Patient Disposition: Home - Home Health Services Reason For Visit: THORACIC COMP FX Discharge Diagnosis: T12 compression fracture Ambulatory dysfunction Condition on Discharge: Fair Activity: Resume your previous activity Non-emergency contact: Primary Care Provider and Surgeon Call non-emergency contact if: you have any medication questions and your symptoms worsen Follow-up/Referrals: Rafal Cooney, [Surgeon] - (Can call for follow up ) Lisa Mehta PA-C [Primary Care Provider] - Diet: Heart Healthy Addtl Attending Provider Instructions: Mrs Ro You were hospitalized and managed for the above diagnosis. You are being discharged home with home services. Please use the brace as instructed. Please use the tylenol as needed and lidocaine patch to help with pain Please ensure follow up with your Primary Doctor and Orthopedic spine surgeon for management of your back pain. It was a pleasure taking care of you Pending Studies at Discharge: No Stand-Alone Forms: My [facility] [employer], Smoking Cessation Medications and DC Order Prescriptions: New lidocaine 5 % Adhesive Patch,Medicated 1 patch transdermal HS Qty: 14 0RF Continued buspirone 5 mg Tablet 5 mg PO BID PRN (Reason: Anxiety) atorvastatin [Lipitor] 80 mg Tablet 80 mg PO DAILY metoprolol succinate 50 mg Tablet Extended Release 24 Hr 50 mg PO DAILY clopidogrel [Plavix] 75 mg Tablet 75 mg PO DAILY omeprazole 40 mg Capsule,Delayed Release(Dr/Ec) 40 mg PO DAILY famotidine 20 mg Tablet 20 mg PO DAILY levothyroxine 50 mcg Tablet 50 mcg PO DAILY paroxetine HCl 20 mg Tablet 20 mg PO DAILY hydrochlorothiazide 25 mg Tablet 25 mg PO .Q3DAYS fluticasone propionate 50 mcg/actuation [place],Suspension 1 spray INTRANASAL DAILY Rx Instructions: administer into each nostril levalbuterol tartrate [Xopenex HFA] 45 mcg/actuation Hfa Aerosol Inhaler 2 inh INHALATION Q4H PRN (Reason: Shortness Of Breath Or Wheezing) umeclidinium-vilanterol [Anoro Ellipta] 62.5-25 mcg/actuation Blister With Device 1 inh INHALATION DAILY (DME) Oxygen Home Liters Per Minute polyethylene glycol 3350 [Miralax] 17 gram Powder In Packet 17 g PO DAILY PRN (Reason: constipation) Qty: 30 0RF amlodipine 5 mg Tablet 7.5 mg PO DAILY Qty: 60 0RF Rx Instructions: PER PT "ONLY TAKE 1 TABLET DAILY". cyclobenzaprine 5 mg Tablet 5 mg PO TID PRN (Reason: muscle spasm) Qty: 14 0RF Discharge Orders: Discharge Order (Routine); Ordered 01/18/25 Ordered By: Honey Rocha Admission Data Admit Date/Time: 01/14/25 21:27 Attending Provider: Honey Rocha I. Admit Provider: Amrik Mario Primary Care Provider: Lisa Mehta Other Providers: Amrik Mario; Rafal Cooney Other Interventions: Discharge Summary Assessment (RN) Last Done: 01/18/25 11:46
[2025-01-18 11:38] VITALS: PULSE 67; RESP 18; TEMP 98.4; O2SAT 93
[2025-01-18 11:49] VITALS: BP 149/79
== END 2025-01-18 13:27 | disposition home health service (06) | DRG 560 ==
LOC: ED 14:08 → 2N 21:27